=== PATIENT | female | born 1955 | race Caucasian/White ===

== ENCOUNTER → 2017-05-17 | Outpatient (RCR) | payer MEDICARE, BC, SELFPAY | LOC: PT 04-25 09:45 | PROVIDERS: PCP Emergency Medicine; Visit Provider Emergency Medicine | DX: M54.2 Cervicalgia (principal) | CPT/HCPCS: G8990; G8991; 97010; 97012; 97014; 97035; 97110; G0283 ==

== ENCOUNTER → 2017-05-23 10:27 | Outpatient (REF) | payer MEDICARE, BC, SELFPAY ==
[2017-05-23 13:57] LABS: Basophils # 0.1 K/mm3 (0-0.2); Basophils % 0.6 % (0.1-2.0); Eosinophils # 0.2 K/mm3 (0.0-0.4); Eosinophils % 2.5 % (0.1-12.0); Hematocrit 42.2 % (37.0-47.0); Hemoglobin 13.4 g/dL (12.2-16.2); Lymphocytes # 2.8 K/mm3 (0.7-4.5); Lymphocytes % 31.9 K/mm3 (10-50); Mean Corpuscular HGB Conc 31.7 g/dL (31.8-35.4); Mean Corpuscular Hemoglobin 27.7 pg (27.0-31.2); Mean Corpuscular Volume 87.4 fl (81-99); Mean Platelet Volume 8.9 fl (7.4-10.4); Monocytes # 0.5 K/mm3 (0.1-1.0); Monocytes % 5.4 % (1.7-9.3); Neutrophils # 5.1 K/mm3 (1.8-7.8); Neutrophils % 59.5 % (37.0-80.0); Platelet Count 602 K/mm3 (142-424); Red Blood Count 4.82 M/mm3 (4.20-5.40); Red Cell Distribution Width 14.9 % (11.5-17.5); White Blood Count 8.6 K/mm3 (4.8-10.8)
[2017-05-23 14:14] LABS: Cholesterol 266 mg/dL (140-200); HDL Cholesterol 53 mg/dL (29-89); LDL Cholesterol 165 mg/dL (0-130); Triglycerides 238 mg/dL (30-200); VLDL Cholesterol 48 mg/dL (0-40)
[2017-05-23 14:21] LABS: Alanine Aminotransferase 17 U/L (12-78); Albumin Level 3.9 gm/dL (3.4-5.0); Alkaline Phosphatase 171 U/L (46-116); Aspartate Amino Transferase 18 U/L (15-37); Bilirubin,Total 0.4 mg/dL (0.2-1.0); Blood Urea Nitrogen 16 mg/dL (7-18); Calcium 9.7 mg/dL (8.5-10.1); Carbon Dioxide 30 mmol/L (21.0-32.0); Chloride 97 mmol/L (98-107); Creatinine,Serum 0.95 mg/dL (0.55-1.02); Estimated Glomerular Filt Rate 59 ml/min (>60); GFR (African American) > 60 ML/MIN (>60); Globulin 3.9 gm/dl (1.3-3.2); Glucose 213 mg/dL (74-106); Sodium 136 mmol/L (136-145); T4 (Thyroxine) 6.5 ug/dl (4.7-13.3); Thyroid Stimulating Hormone 2.16 uIU/ml (0.358-3.740); Total Protein,Serum 7.8 gm/dL (6.4-8.2)
[2017-05-23 14:49] LABS: Hemoglobin A1C 11.2 % (0.0-7.0)
[2017-05-24 17:18] LABS: Vitamin B12 454 pg/mL (232-1245); Vitamin D 25 Hydroxy 27.3 ng/mL (30.0-100.0)
== END ==
LOC: LAB 10:27
PROVIDERS: Visit Provider Physician Assistant
DX: F33.1 Major depressive disorder, recurrent, moderate (principal); I10 Essential (primary) hypertension; E55.9 Vitamin D deficiency, unspecified; R53.83 Other fatigue; Z79.4 Long term (current) use of insulin; E11.65 Type 2 diabetes mellitus with hyperglycemia
CPT/HCPCS: 80053; 80061; 82607; 82652; 83036; 84436; 84443; 85025

== ENCOUNTER → 2017-07-03 14:49 | Outpatient (REF) | payer MEDICARE, BC, SELFPAY ==
[2017-07-03 18:39] LABS: Basophils # 0.1 K/mm3 (0-0.2); Basophils % 1.1 % (0.1-2.0); Eosinophils # 0.4 K/mm3 (0.0-0.4); Eosinophils % 5.3 % (0.1-12.0); Hematocrit 41.5 % (37.0-47.0); Hemoglobin 13.1 g/dL (12.2-16.2); Lymphocytes # 2.9 K/mm3 (0.7-4.5); Lymphocytes % 35.6 K/mm3 (10-50); Mean Corpuscular HGB Conc 31.6 g/dL (31.8-35.4); Mean Corpuscular Hemoglobin 27.1 pg (27.0-31.2); Mean Platelet Volume 8.2 fl (7.4-10.4); Monocytes # 0.6 K/mm3 (0.1-1.0); Neutrophils # 4.2 K/mm3 (1.8-7.8); Neutrophils % 51.1 % (37.0-80.0); Platelet Count 553 K/mm3 (142-424); Red Blood Count 4.82 M/mm3 (4.20-5.40); Red Cell Distribution Width 14.3 % (11.5-17.5); White Blood Count 8.1 K/mm3 (4.8-10.8)
[2017-07-03 18:54] LABS: Alanine Aminotransferase 23 U/L (12-78); Albumin Level 3.6 gm/dL (3.4-5.0); Albumin/Globulin Ratio 0.9 (1.1-1.8); Alkaline Phosphatase 155 U/L (46-116); Amylase 33 U/L (25-125); Anion Gap 13.4 mEq/L (5-15); Aspartate Amino Transferase 13 U/L (15-37); Bilirubin,Total 0.3 mg/dL (0.2-1.0); Blood Urea Nitrogen 21 mg/dL (7-18); Calcium 9.6 mg/dL (8.5-10.1); Carbon Dioxide 28 mmol/L (21.0-32.0); Chloride 100 mmol/L (98-107); Creatinine,Serum 0.82 mg/dL (0.55-1.02); Estimated Glomerular Filt Rate 70 ml/min (>60); GFR (African American) 85 ML/MIN (>60); Globulin 4.2 gm/dl (1.3-3.2); Glucose 233 mg/dL (74-106); Lipase 154 u/L (73-393); Potassium 4.4 mmoL/L (3.5-5.1); Sodium 137 mmol/L (136-145); Total Protein,Serum 7.8 gm/dL (6.4-8.2)
== END ==
LOC: LAB 14:49
PROVIDERS: Visit Provider Physician Assistant
DX: R10.9 Unspecified abdominal pain (principal); G62.9 Polyneuropathy, unspecified
CPT/HCPCS: 80053; 82150; 83690; 85025

== ENCOUNTER → 2017-07-04 09:49 | Outpatient (CLI) | payer MEDICARE, BC, SELFPAY ==
--- NOTE | 2017-07-04 09:52 | XR_ITS ---
XR foot RT min 3V HISTORY: ITS.REASON: pain in right foot ORDERING PHYSICIAN: Abby Mustafa DPM PATIENT AGE: 62 years COMPARISON: None FINDINGS: Weightbearing views are performed No fracture or dislocation. No lytic or blastic change. There is normal mineralization.. Minimal hypertrophic changes are present at the base and lateral aspect of the proximal phalanx of the great toe Normal alignment IMPRESSION: Minimal osteophyte formation at the base of the proximal phalanx of the great toe otherwise negative
--- NOTE | 2017-07-04 09:52 | XR_ITS ---
XR foot LT min 3V HISTORY: ITS.REASON: Pain of left foot ORDERING PHYSICIAN: Abby Mustafa DPM PATIENT AGE: 62 years COMPARISON: None FINDINGS: Weightbearing views are performed No fracture or dislocation. No lytic or blastic change. There is normal mineralization.. The joint spaces are well-preserved. No significant degenerative/arthritic changes. No erosive changes evident. Normal alignment IMPRESSION: Negative, no acute finding
== END ==
PROVIDERS: PCP Physician Assistant; Visit Provider Podiatrist
DX: M79.671 Pain in right foot (principal); M79.672 Pain in left foot
CPT/HCPCS: 73630

== ENCOUNTER → 2017-07-12 11:19 | Outpatient (POV) | payer MEDICARE, BC, SELFPAY | PROVIDERS: Visit Provider Podiatrist | DX: Z00.00 Encounter for general adult medical examination without abnormal findings (principal) ==

== ENCOUNTER 2017-07-21 12:44 | Observation (INO) | payer MEDICARE, BC, SELFPAY ==
[2017-07-21 12:54] VITALS: BP 151/83; PULSE 76; RESP 18; TEMP 36.5; O2SAT 95; BMI 41.2
--- NOTE | 2017-07-21 13:42 | HMH.EDABDPAI ---
ED Disposition Clinical Impression: Upper abdominal pain, HTN (hypertension), Diabetes Disposition: Still a Patient Condition on Discharge: Fair Instructions: DI for Acute Abdomen Referrals: Provider,Referral, MD [Primary Care Provider] - - Critical Care Critical Care Time: No Attestation: On 07/21/17, the high probability of a clinically significant, sudden or life threatening deterioration of the following system(s) required my full and direct attention, intervention and personal management. The time I documented below is in addition to time spent performing reported procedures but includes the following listed in this critical care notation. Medical Decision Making Vital Signs: 07/21/17 12:54 Temperature 97.7 F Temperature Source Oral Pulse Rate [Right Radial] 76 Respiratory Rate 18 Blood Pressure [Right Arm] 151/83 Blood Pressure Mean [Right Arm] 105 Blood Pressure Source [Right Arm] Automatic Cuff Blood Pressure Position [Right Arm] Sitting 02 Sat by Pulse Oximetry 95 Oxygen Delivery Method Room Air - Lab Data Lab Results 07/21/17 14:00: WBC 6.6, RBC 4.85, Hgb 13.2, Hct 42.2, MCV 87.0, MCH 27.1, MCHC 31.2 L, RDW 14.3, Plt Count 479 H, MPV 7.6, Neut % (Auto) 47.3, Lymph % (Auto) 41.9, [place] % (Auto) 6.1, Eos % (Auto) 3.9, Baso % (Auto) 0.9, Neut # (Auto) 3.1, Lymph # (Auto) 2.8, [place] # (Auto) 0.4, Eos # (Auto) 0.3, Baso # (Auto) 0.1 07/21/17 14:00: Sodium 135 L, Potassium 4.2, Chloride 96 L, Carbon Dioxide 28, Anion Gap 15.2 H, BUN 16, Creatinine 0.90, Estimated Creat Clear 51, Estimated GFR 63, Est GFR ( Amer) 76, Glucose 337 H, Calcium 9.3, Total Bilirubin 0.4, AST 9 L, ALT 22, Alkaline Phosphatase 151 H, Total Creatine Kinase 64, CK-MB (CK-2) 2.5, CK-MB (CK-2) Rel Index 3.9, Troponin I < 0.02, Total Protein 8.4 H, Albumin 3.6, Globulin 4.8 H, Albumin/Globulin Ratio 0.8 L, Lipase 176 Result diagrams: 07/21/17 14:00 07/21/17 14:00 Orders (Tests/Meds): ED MEDICATIONS Discontinued Medications Generic Name Dose Route Start Last Admin Trade Name Aure PRN Reason Stop Dose Admin Belladonna Alkaloids 60 ml 07/21/17 13:46 07/21/17 13:50 Gi Cocktail 60ml Udc PO 07/21/17 13:47 60 ml ONCE ONE Administration Famotidine 20 mg 07/21/17 13:46 07/21/17 13:50 Pepcid 20mg/2ml Vial IV 07/21/17 13:47 20 mg ONCE ONE Administration ORDERS Category Date Time Status Occult Blood,Stool Stat Lab 07/21/17 13:45 Ordered - ECG Data Tracing #1 Normal sinus rhythm 71/min baseline artifact no acute finding. ECG initial impression date: 07/21/17 ECG initial impression time: 14:40 - Marco A Inquiry Pt receiving controlled substance: No Marco A was queried for this patient: No Medical Decision Making Narrative: The patient felt improvement after using a GI cocktail and Pepcid I spoke with Dr. Hercules the customer sales advisor was willing to scope her in the morning. I called Dr. Villasenor to admit. Abdominal Pain HPI - General Chief Complaint: Abdominal Pain Stated Complaint: ABD Pain goes to left side Mode of Arrival: Ambulatory Limitations: No Limitations Description of Symptoms (Recalled from ER Triage Doc. by RN): EPIGASTRIC PAIN RADIATING TO LEFT SIDE WITH ASSOCIATED NAUSEA. STATES SHE HAS BEEN HAVING SYMPTOMS FOR TWO WEEKS. SEEN BY PCP A WEEK AGO AND STATES PCP TOOK BLOOD FOR PANCREATIIS AND IT WAS NEGATIVE. . I PROBABLY HAVE ANOTHER HERNIA. - History of Present Illness HPI narrative: This is 62 years old white female with history of diabetes and reflux disease. For the past 2 weeks she has been experiencing sharp stabbing pain in the epigastrium rated 8/10, it is not affected by food, not relieved by medications. She denies vomiting hematemesis coffee-ground emesis melanotic stool or bleeding per rectum. She is tired of it and she wants to be checked. Patient denies having chest pain palpitations shortness of breath. MD complaint: abdominal pa
--- NOTE | 2017-07-21 13:44 | XR_ITS ---
XR acute abdomen series HISTORY: ITS.REASON: upper abdominal pain ORDERING PHYSICIAN: Nurys Myrick MD PATIENT AGE: 62 years COMPARISON: None FINDINGS: Frontal view of the chest shows no acute finding. Upright and supine views of abdomen demonstrates nonspecific nonobstructive bowel gas pattern with mild amount retained colonic feces. No free air. No abnormal calcifications or acute bony anomalies. IMPRESSION: Constipation otherwise negative
[2017-07-21 14:17] LABS: Basophils # 0.1 K/mm3 (0-0.2); Basophils % 0.9 % (0.1-2.0); Eosinophils # 0.3 K/mm3 (0.0-0.4); Eosinophils % 3.9 % (0.1-12.0); Hematocrit 42.2 % (37.0-47.0); Hemoglobin 13.2 g/dL (12.2-16.2); Lymphocytes # 2.8 K/mm3 (0.7-4.5); Lymphocytes % 41.9 K/mm3 (10-50); Mean Corpuscular HGB Conc 31.2 g/dL (31.8-35.4); Mean Corpuscular Hemoglobin 27.1 pg (27.0-31.2); Mean Platelet Volume 7.6 fl (7.4-10.4); Monocytes # 0.4 K/mm3 (0.1-1.0); Monocytes % 6.1 % (1.7-9.3); Neutrophils # 3.1 K/mm3 (1.8-7.8); Neutrophils % 47.3 % (37.0-80.0); Platelet Count 479 K/mm3 (142-424); Red Blood Count 4.85 M/mm3 (4.20-5.40); Red Cell Distribution Width 14.3 % (11.5-17.5); White Blood Count 6.6 K/mm3 (4.8-10.8)
[2017-07-21 14:47] LABS: Alanine Aminotransferase 22 U/L (12-78); Albumin Level 3.6 gm/dL (3.4-5.0); Albumin/Globulin Ratio 0.8 (1.1-1.8); Alkaline Phosphatase 151 U/L (46-116); Anion Gap 15.2 mEq/L (5-15); Aspartate Amino Transferase 9 U/L (15-37); Bilirubin,Total 0.4 mg/dL (0.2-1.0); Blood Urea Nitrogen 16 mg/dL (7-18); CKMB Relative Index 3.9 U/L (0-4.0); Calcium 9.3 mg/dL (8.5-10.1); Carbon Dioxide 28 mmol/L (21.0-32.0); Chloride 96 mmol/L (98-107); Creatine Kinase 64 U/L (26-192); Creatine Kinase MB 2.5 mg/ml (0.0-3.6); Creatinine Clearance Estimated 51 mL/min (0-300); Estimated Glomerular Filt Rate 63 ml/min (>60); GFR (African American) 76 ML/MIN (>60); Globulin 4.8 gm/dl (1.3-3.2); Glucose 337 mg/dL (74-106); Lipase 176 u/L (73-393); Potassium 4.2 mmoL/L (3.5-5.1); Sodium 135 mmol/L (136-145); Total Protein,Serum 8.4 gm/dL (6.4-8.2); Troponin I < 0.02 ng/ml (0.00-0.06)
--- NOTE | 2017-07-21 17:01 | PC.NURSE ---
REPORT CALLED TO ALEIDA MERRITT RN
[2017-07-21 17:17] VITALS: BP 151/79; PULSE 72; RESP 20; TEMP 36.6; O2SAT 95; BMI 40.2
[2017-07-21 17:19] VITALS: BP 151/79; PULSE 72; RESP 20; TEMP 36.6; O2SAT 95
[2017-07-21 17:29] LABS: Troponin I < 0.02 ng/ml (0.00-0.06)
[2017-07-21 18:21] VITALS: PULSE 72; RESP 18; O2SAT 95
--- NOTE | 2017-07-21 19:01 | PC.NURSE ---
report to be given to Analisa Avendaño RN
[2017-07-21 19:36] VITALS: BP 170/93; PULSE 73; RESP 20; TEMP 36.6; O2SAT 93
[2017-07-21 21:30] VITALS: O2SAT 93
--- NOTE | 2017-07-21 21:30 | PC.NURSE ---
Pt does not have home medications with her, she wad informed that without her home medications she will be charged for medications taken from [facility], pt agreed she would take medications we gave her and does not mind being charged. Medications that were ordered pt home med were: buspirone 30 mg requip 2 mg
[2017-07-22] VITALS (17 sets, daily range): BP systolic 120–177; BP diastolic 56–93; PULSE 66–80; RESP 16–20; TEMP 36.1–36.9; O2SAT 90–100; BMI 40.3
[2017-07-22 01:55] LABS: POC Glucose,Bedside 324 mg/dL (70-110)
--- NOTE | 2017-07-22 05:17 | PC.NURSE ---
Pt has rested well this shift with no complaints of pain or discomfort. When palpating abdomen no tenderness noted, BS active in all 4 qauds. Wheezes noted during lung auscultation, pt states she is a long time smoker, denies SOA. A&Ox3. Abdomen is mildy distended. VSS. NO acute distress noted. Will continue to monitor.
[2017-07-22 06:40] LABS: POC Glucose,Bedside 245 mg/dL (70-110)
[2017-07-22 06:47] LABS: Basophils # 0.1 K/mm3 (0-0.2); Basophils % 0.7 % (0.1-2.0); Eosinophils # 0.4 K/mm3 (0.0-0.4); Eosinophils % 4.4 % (0.1-12.0); Hemoglobin 14.2 g/dL (12.2-16.2); Lymphocytes # 2.9 K/mm3 (0.7-4.5); Lymphocytes % 33.3 K/mm3 (10-50); Mean Corpuscular HGB Conc 30.9 g/dL (31.8-35.4); Mean Corpuscular Hemoglobin 27.3 pg (27.0-31.2); Mean Corpuscular Volume 88.3 fl (81-99); Mean Platelet Volume 7.4 fl (7.4-10.4); Monocytes # 0.4 K/mm3 (0.1-1.0); Neutrophils % 56.7 % (37.0-80.0); Platelet Count 512 K/mm3 (142-424); Red Blood Count 5.21 M/mm3 (4.20-5.40); Red Cell Distribution Width 14.3 % (11.5-17.5); White Blood Count 8.8 K/mm3 (4.8-10.8)
[2017-07-22 07:01] LABS: Alanine Aminotransferase 24 U/L (12-78); Albumin Level 3.7 gm/dL (3.4-5.0); Albumin/Globulin Ratio 0.7 (1.1-1.8); Alkaline Phosphatase 159 U/L (46-116); Anion Gap 14.9 mEq/L (5-15); Aspartate Amino Transferase 15 U/L (15-37); Bilirubin,Total 0.5 mg/dL (0.2-1.0); Blood Urea Nitrogen 14 mg/dL (7-18); Calcium 9.3 mg/dL (8.5-10.1); Carbon Dioxide 29 mmol/L (21.0-32.0); Chloride 97 mmol/L (98-107); Creatinine Clearance Estimated 99 mL/min (0-300); Creatinine,Serum 0.95 mg/dL (0.55-1.02); Estimated Glomerular Filt Rate 59 ml/min (>60); GFR (African American) 72 ML/MIN (>60); Glucose 272 mg/dL (74-106); Potassium 3.9 mmoL/L (3.5-5.1); Sodium 137 mmol/L (136-145); Total Protein,Serum 8.7 gm/dL (6.4-8.2)
--- NOTE | 2017-07-22 07:29 | PC.NURSE ---
REPORT GIVEN TO Sahara HOPPER W/C
--- NOTE | 2017-07-22 07:31 | HMH.PHAVTE ---
[facility] Pharmacy VTE Monitoring - Patient Demographics Admission date: 07/21/17 Report Date: 07/22/17 Time: 07:31 Allergies/Adverse Reactions: Patient Allergies canagliflozin [From Invokana] Allergy (Severe, Verified 07/16/17 08:14) blisters metronidazole [From Metrogel] Allergy (Verified 07/16/17 08:14) Rash nystatin Allergy (Verified 07/16/17 08:14) Dizziness rosuvastatin [From Crestor] Allergy (Verified 07/16/17 08:14) Unknown allergy reaction Height: 1.65 m Weight: 109.798 kg Patient Problems: Current Active Problems Upper abdominal pain (Acute) HTN (hypertension) (Acute) Diabetes mellitus (Chronic) - VTE Risk Labs: VTE Related Lab Results Hgb 14.2 g/dL (12.2-16.2) 07/22/17 06:30 Hct 46.0 % (37.0-47.0) 07/22/17 06:30 Plt Count 512 K/mm3 (142-424) H 07/22/17 06:30 BUN 14 mg/dL (7-18) 07/22/17 06:30 Creatinine 0.95 mg/dL (0.55-1.02) 07/22/17 06:30 Estimated Creat Clear 99 mL/min (0-300) 07/22/17 06:30 Was VTE Risk Assessment Performed: Yes VTE Score: 4 VTE Risk Level: Low Risk - Prophylaxis VTE Prophylaxis Ordered?: Yes Types of VTE Prophylaxis: TEDS Knee High Location of Applied Device: Bilateral Lower Extremeties - VTE Diagnosis Confirmed Treatment or plan recommended: Continue Current Treatment
--- NOTE | 2017-07-22 07:40 | PC.NURSE ---
report given to carol millard rn
--- NOTE | 2017-07-22 09:06 | P.PN_ITS ---
[facility] Anesthesia Checklist - Structural Data Admitted From: Home Planned Operative Procedure/s: egd Consent for Planned Operative Procedure(s) Verified: Yes - Airway Assessment C-Spine Mobility Assessed: Yes TMJ Mobility Assessed: Yes Dentition: Good Dentition - Neurological Assessment Level of Consciousness: Awake, Alert - Anesthesia Plan Anesthesia Risk discussed: Yes Anesthesia Plan: Verified ASA Class: II Anesthesia Type: MAC [facility] Anesthesia HX Medical History: Reports:: Diabetes Mellitus Type 2, Gastroesophageal Reflux Disease(GERD), Hyperlipidemia, Hypertension Denies:: Diabetes Mellitus Type 1, Internal Pacemaker Other Medical History: Reports: Arthritis. Denies: Cataracts, Glaucoma, Hypothyroidism, Thyroid Disease Other Surgeries: Yes: Cardiac Catheterization, EGD, Hysterectomy-Total. No: Pacemaker Amputation: No Fractures: No *Family Hx:: Heart Attack, Stroke, Hypertension, Asthma
--- NOTE | 2017-07-22 09:31 | P.PCN_ITS ---
[facility] Procedure Note Procedure Note:: Upper Endoscopy Procedure Report: Esophagogastroduodenoscopy with cold biopsies Endoscopost: Rangel Hercules II, MD Referring Physician: Eben Villasenor MD Date of Procedure: June 24 July 22, 2017 Equipment: Olympus GIF 180 standard upper endoscope Sedation: MAC sedation Indications: Mrs. Shin is a 62-year-old female who was admitted late yesterday for abdominal pain. She reports epigastric and left upper quadrant abdominal pain. This began a couple of weeks ago. She has had bloating, belching, nausea and early satiety. Her reflux/GERD is controlled with Dexilant daily. She reports no heartburn, hematemesis, melena, fever or weight loss. She does state that she normally has 3 bowel movements daily but yesterday had one bowel movement. She reports no significant change in bowel habits, diarrhea or constipation. She did have an upper endoscopy more than 10 years ago (Dr. Jeremi Schmid). She has not had prior cholecystectomy. Procedure: Prior to the procedure, a history and physical exam was performed, and patient' s medications and allergies were reviewed. The risks, benefits and alternatives of the sedation and procedure were discussed with the patient. All questions were answered and informed consent was obtained. The patient was brought to the procedure room. Patient identification and proposed procedure were verified by the physician and the nurse. The patient was placed in a left lateral decubitus position and the scope was passed under direct vision. Throughout the procedure, the patient's blood pressure, pulse, and oxygen saturations were monitored continuously. The upper GI endoscopy was accomplished without difficulty. The patient tolerated the procedure well. Findings: The scope was passed directly into the upper esophagus and advanced to the third portion of the duodenum. The post bulbar duodenum and duodenal bulb were normal with normal mucosa and conniventes. The scope was withdrawn through a normal duodenal bulb and pylorus into the stomach. There was some linear erythema of the antrum and body consistent with mild linear reactive gastritis. The remainder of the antrum, body and fundus of the stomach were grossly normal. Upon retroflexion there was a small 2 cm hiatal hernia. 2 biopsies were taken in the antrum and along the lesser curvature for histology to rule out gastritis and/or H pylori. The scope was then withdrawn into the esophagus. There was a serrated Z line and tertiary contractions within the esophagus consistent with mild esophageal dysmotility. There were 2 small tongues of salmon colored mucosa that were serrated that were biopsied to rule out Toney's/intestinal metaplasia. The remainder of the esophageal mucosa was normal. Impression: 1. Nonerosive GERD with mild esophageal dysmotility and small 2 cm hiatal hernia 2. Mild linear reactive gastritis Plan: I do feel that the patient has functional dyspepsia. We will discuss additional dietary measures and treatment options. The patient can begin advancing diet to soft fiber/low residue. I would like for her to have ultrasound of the gallbladder either before discharge or this week. I will have her follow-up with Maureen francis. I will follow up the biopsies.
--- NOTE | 2017-07-22 10:38 | US_ITS ---
HISTORY: Abdominal pain ITS.REASON: abd pain r/o gallbladder disease/gallstones ORDERING PHYSICIAN: Bulmaro Villasenor MD PATIENT AGE: 62 years COMPARISON: None FINDINGS: PANCREAS: Unremarkable. No obvious mass or abnormal fluid collection. No ductal dilatation LIVER: No focal liver lesions demonstrated. Homogeneous echogenicity. No intrahepatic biliary ductal dilatation evident RIGHT KIDNEY: Unremarkable. Normal size and echogenicity. No hydronephrosis GALLBLADDER: There is a 2.3 cm gallstone present. No gallbladder wall thickening or pericholecystic fluid. Common bile duct is within normal limits. There may be a small polyp along the lower aspect of the gallbladder posteriorly. IMPRESSION: Cholelithiasis. Possible small gallbladder polyp of 3 mm
[2017-07-22 11:37] LABS: POC Glucose,Bedside 228 mg/dL (70-110)
[2017-07-22 16:36] LABS: POC Glucose,Bedside 366 mg/dL (70-110)
--- NOTE | 2017-07-22 16:47 | HMH.HPDC ---
General - General Admission date: 07/21/17 Discharge date: 07/22/17 *Admission Date: 07/21/17 *Chief complaint: abd pain *History of present illness: this wf who is diabetic presented to the ed -is is 62 years old white female with history of diabetes and reflux disease. For the past 2 weeks she has been experiencing sharp stabbing pain in the epigastrium rated 8/10, it is not affected by food, not relieved by medications. She denies vomiting hematemesis coffee-ground emesis melanotic stool or bleeding per rectum. She is tired of it and she wants to be checked. [facility] History I have reviewed the patient's past medical history: Yes Medical History: Reports:: Diabetes Mellitus Type 2, Gastroesophageal Reflux Disease(GERD), Hyperlipidemia, Hypertension Denies:: Diabetes Mellitus Type 1, Internal Pacemaker Other Medical History: Reports: Arthritis. Denies: Cataracts, Glaucoma, Hypothyroidism, Thyroid Disease Other Surgeries: Yes: Cardiac Catheterization, EGD, Hysterectomy-Total. No: Pacemaker Amputation: No Fractures: No - *Social History Educational Level: Attended High School Smoking Status: Light tobacco smoker Tobacco Type: cigarettes # Packs/Day (cigarettes): 1 Alcohol Intake: never Alcohol Intake Frequency:: 0-2 drinks per day Substance Use Type: denies use Occupational Status: disabled Housing: apartment Household Members: spouse - Psychiatric History Expresses thoughts of harming self/others: None Suicide Plan Description: No Plan *Family Hx:: Heart Attack, Stroke, Hypertension, Asthma Review of Systems - Review of Systems Review of systems:: pertinent systems reviewed and negative unless documented below - Constitutional Denies fever(s) - Eyes Denies change in vision - ENT Denies neck pain - *Cardiovascular Denies chest pain with activity - *Respiratory Denies cough - *Gastrointestinal Reports abdominal pain, Reports nausea, Reports vomiting, Denies black, tarry stools - *Genitourinary Denies blood in urine - *Musculoskeletal Denies joint pain - Integumentary/Breasts Denies rash - *Neurologic Reports confusion, Reports seizure-like activity Exam Vital signs and Labs for Last 24 Hours: Temp Pulse Resp BP Pulse Ox 98.0 F 75 18 177/91 100 07/22/17 16:05 07/22/17 16:05 07/22/17 16:05 07/22/17 16:05 07/22/17 16:05 Laboratory Results - last 24 hr 07/21/17 20:14: POC Glucose 324 07/22/17 06:07: POC Glucose 245 07/22/17 06:30: WBC 8.8 D, RBC 5.21, Hgb 14.2, Hct 46.0, MCV 88.3, MCH 27.3, MCHC 30.9 L, RDW 14.3, Plt Count 512 H, MPV 7.4, Neut % (Auto) 56.7, Lymph % (Auto) 33.3, [place] % (Auto) 5.0, Eos % (Auto) 4.4, Baso % (Auto) 0.7, Neut # (Auto) 5.0, Lymph # (Auto) 2.9, [place] # (Auto) 0.4, Eos # (Auto) 0.4, Baso # (Auto) 0.1 07/22/17 06:30: Sodium 137, Potassium 3.9, Chloride 97 L, Carbon Dioxide 29, Anion Gap 14.9, BUN 14, Creatinine 0.95, Estimated Creat Clear 99, Estimated GFR 59, Est GFR ( Amer) 72, Glucose 272 H, Calcium 9.3, Total Bilirubin 0.5, AST 15 D, ALT 24, Alkaline Phosphatase 159 H, Total Protein 8.7 H, Albumin 3.7, Globulin 5.0 H, Albumin/Globulin Ratio 0.7 L 07/22/17 11:23: POC Glucose 228 07/22/17 16:26: POC Glucose 366 I & O for Last 24 hours: Intake & Output 07/20/17 07/21/17 07/22/17 07/23/17 11:59 11:59 11:59 11:59 Intake Total 655 / 655 240 / 240 Balance 655 / 655 240 / 240 Weight 242 lb 1 oz 242 lb 1.01 oz - Constitutional no acute distress, obese - *Routine HEENT Exam Head: Present: normocephalic Eye: Present: EOMI, PERRL. Absent: conjunctival icterus ENT: Present: mucous membranes dry - *Routine Neck Exam Absent: JVD - *Routine Respiratory Exam Present: CTA bilaterally. Absent: respiratory distress - *Routine Cardiovascular Exam Present: RRR, murmur, S4 - *Routine Abdominal Exam Present: tenderness. Absent: rebound Comments: tender rt upper abd with pos vogel sign - *Routine Extremities Exam Abs
== END 2017-07-22 18:19 | disposition home or self-care (01) ==
LOC: ER 16:42 → 2ND 17:24
PROVIDERS: Internal Medicine Gastroenterology; Admitting Provider Emergency Medicine; Emergency Provider Emergency Medicine; Visit Provider Family Medicine
PROC: 0DJ08ZZ Inspection of Upper Intestinal Tract, Via Natural or Artificial Opening Endoscopic (ICD-10-PCS; CPT 43235; principal; 2017-07-22 12:30)
DX: K21.9 Gastro-esophageal reflux disease without esophagitis (principal); K44.9 Diaphragmatic hernia without obstruction or gangrene; R10.13 Epigastric pain; E11.9 Type 2 diabetes mellitus without complications; I10 Essential (primary) hypertension; Z72.0 Tobacco use; K22.4 Dyskinesia of esophagus
CPT/HCPCS: 43239; 36415; 74021; 76705; 80053; 82550; 82553; 82962; 83690; 84484; 85025; 88305; 88342; 93005; 96374; 96375; 99283; G0378

== ENCOUNTER → 2017-11-21 06:10 | Outpatient (CLI) | payer MEDICARE, BC, SELFPAY ==
--- NOTE | 2017-11-21 06:13 | NM_ITS ---
History and Indications: Hypertension, diabetes, hyperlipidemia, tobacco use, family history, chest pain, shortness of breath, palpitations and fatigue Procedure: Patient received a 0.4 mg of intravenous Lexiscan, resting heart rate was 70 bpm, resting blood pressure 153/83, with Lexiscan maximum heart rate achieved was 87 bpm which is less than 85% of the maximum predicted heart rate and a blood pressure was 149/86. With Lexiscan patient complained of shortness of breath and headache. Electrocardiogram: Resting electrocardiogram showed sinus rhythm, with Lexiscan there is less than 1.[address] segment depression noted from the baseline EKG portion of the Lexiscan Myoview is nondiagnostic Cardiac stress and resting SPECT images: Cardiac stress and rest SPECT images were obtained using technetium 99 Myoview 32.0 mCi at stress and the 10.6 mCi at rest. Gated SPECT further analysis of segmental wall motion and calculation of the ejection fraction. Cardiac stress and rest images show uniform myocardial activity without any segmental perfusion abnormality, computer derived ejection fraction is over 65% with no obvious regional wall motion normal, right ventricle is normal size and contractility. Conclusion: 1. The EKG portion of the Lexiscan Myoview is nondiagnostic. 2. No obvious scintigraphic evidence of reversible ischemia seen, computer derived ejection fraction is over 65% with no obvious regional wall motion abnormality, right ventricle is normal size and contractility. 3. Normal Lexiscan Myoview study.
--- NOTE | 2017-11-21 08:49 | HMH.ITSHM ---
gabapentin metformin gemfibrozil buspirone dexilant atenolol glipizide losartan/hctz ropinirole trulance ranexa sertraline quetiapine
== END ==
PROVIDERS: PCP Physician Assistant; Visit Provider Internal Medicine
DX: R07.9 Chest pain, unspecified (principal)
CPT/HCPCS: 78452; 93017; A9502; J2785

== ENCOUNTER → 2018-01-28 09:30 | Outpatient (REF) | payer MEDICARE, BC, SELFPAY ==
[2018-01-28 14:42] LABS: Basophils # 0.1 K/mm3 (0-0.2); Basophils % 0.9 % (0.1-2.0); Eosinophils # 0.2 K/mm3 (0.0-0.4); Eosinophils % 2.4 % (0.1-12.0); Hematocrit 38.9 % (37.0-47.0); Hemoglobin 11.9 g/dL (12.2-16.2); Lymphocytes # 2.3 K/mm3 (0.7-4.5); Lymphocytes % 32.2 K/mm3 (10-50); Mean Corpuscular HGB Conc 30.6 g/dL (31.8-35.4); Mean Corpuscular Hemoglobin 25.2 pg (27.0-31.2); Mean Corpuscular Volume 82.4 fl (81-99); Mean Platelet Volume 8.1 fl (7.4-10.4); Monocytes # 0.5 K/mm3 (0.1-1.0); Monocytes % 6.4 % (1.7-9.3); Neutrophils # 4.2 K/mm3 (1.8-7.8); Platelet Count 432 K/mm3 (142-424); Red Blood Count 4.73 M/mm3 (4.20-5.40); Red Cell Distribution Width 16.3 % (11.5-17.5); White Blood Count 7.2 K/mm3 (4.8-10.8)
[2018-01-28 14:57] LABS: Hemoglobin A1C 11.6 % (0.0-7.0)
[2018-01-28 15:38] LABS: Alanine Aminotransferase 14 U/L (12-78); Albumin Level 3.3 gm/dL (3.4-5.0); Albumin/Globulin Ratio 0.8 (1.1-1.8); Alkaline Phosphatase 148 U/L (46-116); Anion Gap 14.9 mEq/L (5-15); Aspartate Amino Transferase 6 U/L (15-37); Bilirubin,Total 0.4 mg/dL (0.2-1.0); Blood Urea Nitrogen 18 mg/dL (7-18); Calcium 9.3 mg/dL (8.5-10.1); Carbon Dioxide 28 mmol/L (21.0-32.0); Chloride 102 mmol/L (98-107); Chol/HDL Ratio 4.5 (1-3.5); Cholesterol 221 mg/dL (140-200); Creatinine,Serum 0.87 mg/dL (0.55-1.02); Estimated Glomerular Filt Rate 66 ml/min (>60); GFR (African American) 79 ML/MIN (>60); Globulin 3.9 gm/dl (1.3-3.2); Glucose 333 mg/dL (74-106); HDL Cholesterol 49 mg/dL (29-89); LDL Cholesterol 103 mg/dL (0-130); Potassium 4.9 mmoL/L (3.5-5.1); Sodium 140 mmol/L (136-145); T4 (Thyroxine) 5.2 ug/dl (4.7-13.3); Thyroid Stimulating Hormone 2.71 uIU/ml (0.358-3.740); Total Protein,Serum 7.2 gm/dL (6.4-8.2); Triglycerides 343 mg/dL (30-200); VLDL Cholesterol 69 mg/dL (0-40)
[2018-01-29 12:42] LABS: Vitamin D 25 Hydroxy 24.3 ng/mL (30.0-100.0)
[2018-01-29 12:46] LABS: Microalbumin, Urine 5.3 ug/mL (Not Estab.)
== END ==
LOC: LAB 09:30
PROVIDERS: Visit Provider Physician Assistant
DX: E11.9 Type 2 diabetes mellitus without complications (principal)
CPT/HCPCS: 80053; 80061; 82043; 82652; 83036; 84436; 84443; 85025

== ENCOUNTER → 2018-02-14 09:15 | Outpatient (POV) | payer MEDICARE, BC, SELFPAY | PROVIDERS: Visit Provider Podiatrist | DX: Z00.00 Encounter for general adult medical examination without abnormal findings (principal) ==

== ENCOUNTER → 2018-03-17 13:14 | Outpatient (POV) | payer MEDICARE, BC, SELFPAY ==
[2018-03-17 17:08] LABS: Anion Gap 13.2 mEq/L (5-15); Blood Urea Nitrogen 19 mg/dL (7-18); Calcium 9.6 mg/dL (8.5-10.1); Carbon Dioxide 30 mmol/L (21.0-32.0); Chloride 101 mmol/L (98-107); Estimated Glomerular Filt Rate 72 ml/min (>60); GFR (African American) 87 ML/MIN (>60); Glucose 174 mg/dL (74-106); Potassium 4.2 mmoL/L (3.5-5.1); Sodium 140 mmol/L (136-145)
== END ==
PROVIDERS: Visit Provider Nurse Practitioner Acute Care
DX: R10.32 Left lower quadrant pain (principal)
CPT/HCPCS: 36415; 80048

== ENCOUNTER → 2018-03-21 09:30 | Outpatient (CLI) | payer MEDICARE, BC, SELFPAY ==
--- NOTE | 2018-03-21 09:34 | CT_ITS ---
CT abdomen pelvis w con CLINICAL INDICATION: Left lower quadrant pain with palpable abnormality in the left lower quadrant ITS.REASON: LLQ ABD PAIN ORDERING PHYSICIAN: Maureen Harrison PATIENT AGE: 62 years COMPARISON: 06/10/2010 TECHNIQUE: Axial images obtained with sagittal and coronal reformats. All CT scans at the facility use one or more dose reduction, viz: automated exposure control, ma/kV adjustment per patient size (including targeted exams where dose is matched to indication, i.e. head), or iterative reconstruction technique. PROCEDURE: Oral Contrast: Redicat IV Contrast: 75 mL of Isovue-370 . FINDINGS: Lower thorax: No acute finding . There is a small hiatal hernia. Mitral valve annular calcifications are present. ABDOMEN: Liver: No masses or biliary dilatation. Gallbladder: Status post cholecystectomy Pancreas: No masses or peripancreatic fluid collections. Spleen: Unremarkable. Adrenals: Unremarkable Kidneys/ureters: No masses. No renal calculi. No hydronephrosis. No perinephric fluid collections. No ureteral dilatation or obvious ureteral calculi. Stomach bowel: No obstruction or free air. There is diverticulosis of the sigmoid colon. No evidence of diverticulitis Appendix: No evidence of appendicitis. PELVIS: Reproductive: Status post hysterectomy Bladder: Nondistended. No obvious stones or masses. ABDOMEN & PELVIS: Peritoneum: No abnormal fluid collections. No obvious inflammatory changes. No free air. Lymph nodes: No enlarged lymph nodes apparent. Vasculature: No evidence of abdominal aortic aneurysm. No retroperitoneal hemorrhage evident. Bones: No acute fracture No abdominal wall hernia. A BB is placed in the left lower quadrant to raffy a palpable abnormality. No abnormalities are evident in this region. IMPRESSION: No acute abdominal or pelvic findings. No abdominal wall hernia or other significant anomalies. Small hiatal hernia. Sigmoid diverticulosis
== END ==
PROVIDERS: PCP Nurse Practitioner Acute Care; Visit Provider Nurse Practitioner Acute Care
DX: R10.32 Left lower quadrant pain (principal)
CPT/HCPCS: 74177; Q9967

== ENCOUNTER → 2018-04-07 14:39 | Outpatient (CLI) | payer MEDICARE, BC, SELFPAY ==
--- NOTE | 2018-04-07 14:40 | XR_ITS ---
XR foot LT min 3V HISTORY: ITS.REASON: Left foot pain, diabetes ORDERING PHYSICIAN: JAMES Holley PATIENT AGE: 62 years COMPARISON: None FINDINGS: No fracture or dislocation. No lytic or blastic change. There is normal mineralization.. The joint spaces are well-preserved. No erosive changes evident. No soft tissue gas. There is a small well-circumscribed calcific density along the neck of the talus on the oblique view and may be due to an old avulsion fracture with some minimal hypertrophic change at this region. Mild osteoarthritic changes are present at the ankle IMPRESSION: 1. No acute finding. 2. Mild degenerative change of the ankle and talus
== END ==
PROVIDERS: PCP Physician Assistant; Visit Provider Physician Assistant
DX: M79.672 Pain in left foot (principal)
CPT/HCPCS: 73630

== ENCOUNTER → 2018-06-02 08:32 | Outpatient (POV) | payer MEDICARE, BC, SELFPAY | PROVIDERS: Visit Provider Nurse Practitioner Acute Care | DX: Z00.00 Encounter for general adult medical examination without abnormal findings (principal) ==

== ENCOUNTER → 2018-07-24 13:22 | Outpatient (CLI) | payer MEDICARE, BC, SELFPAY ==
--- NOTE | 2018-07-24 13:30 | MM_ITS ---
MM Dig screening mamm BI w/CAD CAD Screening COMPARISON: Digital mammograms with CAD 08/24/2016 and 07/19/2015 INDICATION: There is no personal or family history of breast cancer. There is been previous biopsy left breast for benign disease. TECHNIQUE: Standard CC and MLO images were obtained. R2 CAD reviewed. FINDINGS: The breasts are composed primarily of fat with with scattered fibroglandular densities in each breast. There is mild to moderate diffuse arterial calcification in each breast. There are few additional benign-appearing microcalcifications in each breast. There are stable densities in the axillary tails of each breast likely low-lying nodes. There is no suspicious lesion and there are no suspicious microcalcifications. IMPRESSION: Fibrofatty parenchyma with no suspicious lesion seen BI-RADS Category: 2 Benign Finding(s) RECOMMENDED FOLLOW-UP: 1YR - 1 YEAR FOLLOW-UP (A letter has been sent to the patient regarding results of the study.)
--- NOTE | 2018-07-24 13:30 | US_ITS ---
US breast RT complete Ordering Physician: JAMES Holley Patient Age: 63 years: Female HISTORY: ITS.REASON: right breast pain Right breast pain laterally towards 9 o'clock position TECHNIQUE: Ultrasound entire breast including axillary survey COMPARISON :Reviewed in conjunction with screening mammogram from today 07/24/2018 FINDINGS On today's ultrasound is reviewed in conjunction with a screening mammogram. Ultrasound reveals no areas of concern. No cyst nor solid nodule. No architectural distortion. No dilated ducts. Axillary survey demonstrates and demonstrates benign-appearing vague axillary lymph nodes. One of the larger nodes 2.8 cm in length with normal fatty hilum thin cortex benign appearance. 3 other other smaller nodes observed IMPRESSION: No areas of concern, right breast . Ultrasound right breast reveals no cyst nor solid nodule Normal appearing Benign nodes towards right axilla BI-RADS Category: 1 negative RECOMMENDED FOLLOW-UP: 1YR - 1 YEAR FOLLOW-UP
== END ==
PROVIDERS: PCP Physician Assistant; Visit Provider Physician Assistant
DX: Z12.31 Encounter for screening mammogram for malignant neoplasm of breast (principal); N64.4 Mastodynia
CPT/HCPCS: 76641; 77067

== ENCOUNTER → 2018-08-25 12:04 | Outpatient (CLI) | payer MEDICARE, BC, SELFPAY ==
--- NOTE | 2018-08-25 12:15 | XR_ITS ---
XR chest 2V HISTORY: Right-sided pain, current smoker ITS.REASON: pain ORDERING PHYSICIAN: Louisa Don PATIENT AGE: 63 years COMPARISON: 01/10/2017 FINDINGS: The cardiomediastinal silhouette and pulmonary vascularity are within normal limits. There remains a parenchymal opacity in the anterior clear space inferiorly as previously described not significant change. No lobar consolidation or collapse. Calcified granuloma is present in the right lung base. No acute bony abnormalities. IMPRESSION: No change with no acute finding
[2018-08-25 12:19] LABS: Basophils % 0.6 % (0.1-2.0); Eosinophils # 0.1 K/mm3 (0.0-0.4); Eosinophils % 1.6 % (0.1-12.0); Hemoglobin 13.4 g/dL (12.2-16.2); Lymphocytes # 2.4 K/mm3 (0.7-4.5); Mean Corpuscular HGB Conc 31.9 g/dL (31.8-35.4); Mean Corpuscular Hemoglobin 24.7 pg (27.0-31.2); Mean Corpuscular Volume 77.4 fl (81-99); Mean Platelet Volume 7.8 fl (7.4-10.4); Monocytes # 0.3 K/mm3 (0.1-1.0); Monocytes % 4.6 % (1.7-9.3); Neutrophils # 4.6 K/mm3 (1.8-7.8); Neutrophils % 61.2 % (37.0-80.0); Platelet Count 494 K/mm3 (142-424); Red Blood Count 5.43 M/mm3 (4.20-5.40); Red Cell Distribution Width 14.5 % (11.5-17.5); White Blood Count 7.5 K/mm3 (4.8-10.8)
[2018-08-25 12:48] LABS: Hemoglobin A1C 10.5 % (0.0-7.0)
[2018-08-25 13:00] LABS: Alanine Aminotransferase 16 U/L (12-78); Albumin Level 3.5 gm/dL (3.4-5.0); Albumin/Globulin Ratio 0.8 (1.1-1.8); Alkaline Phosphatase 148 U/L (46-116); Anion Gap 16.2 mEq/L (5-15); Aspartate Amino Transferase 10 U/L (15-37); Bilirubin,Total 0.3 mg/dL (0.2-1.0); Blood Urea Nitrogen 16 mg/dL (7-18); Calcium 9.4 mg/dL (8.5-10.1); Carbon Dioxide 29 mmol/L (21.0-32.0); Chloride 99 mmol/L (98-107); Chol/HDL Ratio 5.3 (1-3.5); Cholesterol 254 mg/dL (140-200); Creatinine,Serum 0.98 mg/dL (0.55-1.02); Estimated Glomerular Filt Rate 57 ml/min (>60); GFR (African American) 69 ML/MIN (>60); Globulin 4.5 gm/dl (1.3-3.2); Glucose 352 mg/dL (74-106); HDL Cholesterol 48 mg/dL (29-89); LDL Cholesterol 151 mg/dL (0-130); Potassium 4.2 mmoL/L (3.5-5.1); Sodium 140 mmol/L (136-145); T4 (Thyroxine) 7.5 ug/dl (4.7-13.3); Thyroid Stimulating Hormone 2.11 uIU/ml (0.358-3.740); Triglycerides 275 mg/dL (30-200); VLDL Cholesterol 55 mg/dL (0-40)
[2018-08-27 14:26] LABS: Vitamin D 25 Hydroxy 21.5 ng/mL (30.0-100.0)
[2018-08-27 14:27] LABS: Microalbumin, Urine 5.1 ug/mL (Not Estab.)
== END ==
PROVIDERS: Visit Provider Nurse Practitioner Family
DX: I10 Essential (primary) hypertension (principal); R53.83 Other fatigue; E11.9 Type 2 diabetes mellitus without complications; N64.4 Mastodynia; Z79.84 Long term (current) use of oral hypoglycemic drugs
CPT/HCPCS: 36415; 71046; 80053; 80061; 82043; 82652; 83036; 84436; 84443; 85025

== ENCOUNTER → 2019-12-02 13:54 | Outpatient (CLI) | payer MEDICARE, BC, SELFPAY ==
[2019-12-02 14:19] LABS: Basophils # 0.1 K/mm3 (0-0.2); Basophils % 0.5 % (0.1-2.0); Eosinophils # 0.1 K/mm3 (0.0-0.4); Eosinophils % 1.3 % (0.1-12.0); Hematocrit 40.2 % (37.0-47.0); Hemoglobin 13.2 g/dL (12.2-16.2); Lymphocytes # 2.1 K/mm3 (0.7-4.5); Lymphocytes % 20.7 % (10-50); Mean Corpuscular HGB Conc 32.8 g/dL (31.8-35.4); Mean Corpuscular Hemoglobin 29.3 pg (27.0-31.2); Mean Corpuscular Volume 89.3 fl (81-99); Mean Platelet Volume 8.4 fl (7.4-10.4); Monocytes # 0.5 K/mm3 (0.1-1.0); Monocytes % 5.1 % (1.7-9.3); Neutrophils # 7.3 K/mm3 (1.8-7.8); Neutrophils % 72.5 % (37.0-80.0); Platelet Count 444 K/mm3 (142-424); Red Cell Distribution Width 13.6 % (11.5-17.5); White Blood Count 10.1 K/mm3 (4.8-10.8)
[2019-12-02 14:47] LABS: Hemoglobin A1C 7.9 % (4.0-6.0)
[2019-12-02 14:55] LABS: Chloride 101 mmol/L (98-107); Potassium 4.1 mmoL/L (3.5-5.1); Sodium 140 mmol/L (136-145)
[2019-12-02 14:58] LABS: Alanine Aminotransferase 23 U/L (12-78); Albumin Level 3.9 g/dl (3.5-5.0); Albumin/Globulin Ratio 1.3 (1.1-1.8); Alkaline Phosphatase 83 U/L (38-126); Anion Gap 14.1 mEq/L (5-15); Aspartate Amino Transferase 26 U/L (14-36); Bilirubin,Total 0.4 mg/dl (0.2-1.3); Blood Urea Nitrogen 17 mg/dl (7-17); Calcium 9.1 mg/dl (8.4-10.2); Carbon Dioxide 29 mmol/L (22.0-30.0); Chol/HDL Ratio 2.3 (1-3.5); Cholesterol 187 mg/dl (140-200); Estimated Glomerular Filt Rate 63 ml/min (>60); GFR (African American) 76 ML/MIN (>60); Glucose 142 mg/dl (74-100); HDL Cholesterol 83 mg/dl (40-60); Total Protein,Serum 6.9 g/dl (6.3-8.2); Triglycerides 112 mg/dl (30-150); VLDL Cholesterol 22 mg/dL (0-40)
[2019-12-02 15:14] LABS: T4 (Thyroxine) 9.6 ug/dl (5.53-11.0)
[2019-12-02 15:28] LABS: Thyroid Stimulating Hormone 1.42 uIU/mL (0.465-4.68)
[2019-12-02 15:30] LABS: Creatinine,Urine Random 474 mg/dL (Not Estab.); Microalbumin/Creatinine Ratio 5.1
[2019-12-08 15:18] LABS: 1,25 Dihydroxy Vitamin D 55 pg/mL (.); 1,25-Dihydroxy, Vitamin D-2 <10 pg/mL (.); 1,25-Dihydroxy, Vitamin D-3 54 pg/mL (.)
== END ==
PROVIDERS: Visit Provider Physician Assistant
DX: E11.9 Type 2 diabetes mellitus without complications (principal); E55.9 Vitamin D deficiency, unspecified; I10 Essential (primary) hypertension; J44.9 Chronic obstructive pulmonary disease, unspecified; E66.9 Obesity, unspecified; N39.0 Urinary tract infection, site not specified; Z79.4 Long term (current) use of insulin; Z79.84 Long term (current) use of oral hypoglycemic drugs
CPT/HCPCS: 80053; 80061; 82043; 82570; 82652; 83036; 84436; 84443; 85025

== ENCOUNTER → 2019-12-17 14:55 | Outpatient (CLI) | payer MEDICARE, BC, SELFPAY | PROVIDERS: PCP Physician Assistant; Visit Provider Internal Medicine Cardiovascular Disease | DX: I48.91 Unspecified atrial fibrillation (principal) | CPT/HCPCS: 93270 ==

== ENCOUNTER → 2019-12-24 10:47 | Outpatient (CLI) | payer MEDICARE, BC, SELFPAY ==
--- NOTE | 2019-12-24 10:53 | CA_ITS ---
APPROVED REPORT EXAM: Comprehensive 2D, Doppler, and color-flow Echocardiogram Client Service Professional: Alice Fiore RT(R) Ht: 5 ft 5 in Wt: 226lbs BSA: 2.08 BP: 161/64 mmHg Indications: ex smoker, HTN, DM, SOB, CAD, PAF, hx CVA, obesity, hx of YANIRA (2017). 2D Dimensions LVOT 1.68 cm (M/F) 1.5-2.5 M-Mode Dimensions RVDd 2.58 cm (0.9-2.6) LVDd 4.32 cm (3.5-5.7) LVDs 3.24 cm (3.5-5.7) IVSd 1.60 cm (0.6-1.1) PWd 1.03 cm (0.6-1.1) EF (Teich) 49.80% FS 25.00% EDV (Teich) 84.00 mL ESV (Teich) 42.20 mL LV Diastology E/A Ratio 1.19 Mitral Valve MV A Velocity 83.00 (40-130 cm/s) Left Ventricle Left atrium is mildly enlarged, left ventricle is normal size, mild concentric left ventricular hypertrophy, visually estimated ejection fraction 55% with no regional wall motion abnormality. Grade 2 diastolic dysfunction seen with tissue Doppler evidence of raise left atrial pressure. Right Ventricle Right atrium and right ventricular mildly enlarged with normal contractility. Aortic Valve Aortic valve is thickened and calcified leaflet continue to display good mobility, there is no aortic stenosis, there is trace aortic insufficiency. Mitral Valve Mitral valve has mitral annular calcification, there is no mitral stenosis, there is mild mitral regurgitation. Tricuspid Valve Tricuspid valve is grossly normal, there is mild tricuspid regurgitation, tricuspid regurgitation jet velocity is inadequate for calculation of the right ventricular systolic pressure. Pulmonic Valve Pulmonic valve is poorly visualized. Great Vessels Aortic root is normal size. Pericardium No significant pericardial effusion noted. Conclusion 1. Mildly enlarged left atrium, normal left ventricular size, mild concentric left ventricular hypertrophy, visually estimated ejection fraction 55% with no regional wall motion abnormality, grade 2 diastolic dysfunction seen with tissue Doppler evidence of raise left atrial pressure. 2. Mildly enlarged right ventricle with normal contractility. 3. Thickened and calcified aortic valve without Doppler evidence of aortic stenosis, there is trace aortic insufficiency. 4. Mild mitral and tricuspid regurgitation. 5. No significant pericardial effusion noted. Electronically signed by : Jose Roberto Copeland, 12/24/2019 16:25:12
== END ==
PROVIDERS: PCP Physician Assistant; Visit Provider Internal Medicine Cardiovascular Disease
DX: R06.00 Dyspnea, unspecified; I50.9 Heart failure, unspecified; E78.5 Hyperlipidemia, unspecified; I25.10 Atherosclerotic heart disease of native coronary artery without angina pectoris; I48.0 Paroxysmal atrial fibrillation; I63.9 Cerebral infarction, unspecified
CPT/HCPCS: 93306

== ENCOUNTER 2020-01-11 16:39 | Observation (INO) | payer MEDICARE, BC, SELFPAY ==
[2020-01-11] VITALS (7 sets, daily range): BP systolic 106–127; BP diastolic 50–72; PULSE 62–72; RESP 14–20; TEMP 36.8–36.9; O2SAT 93–95; BMI 41.5; BMI 37.8
--- NOTE | 2020-01-11 16:35 | ECG_ITS ---
APPROVED REPORT Exam: Resting ECG HR:68 bpm ECG Measurements Heart Rate 68 AXES CA 166 P 61 QRSd 84 QRS 82 QT 424 T 47 QTc 450 <Conclusion> Normal sinus rhythm Normal ECG Electronically signed by : Niraj Jasso, 01/12/2020 09:01:08
--- NOTE | 2020-01-11 17:00 | XR_ITS ---
PROCEDURE: XR CHEST PORTABLE CLINICAL HISTORY: chest pain COMPARISON: CR CXR CHEST(2 VIEWS-NOT PORTABLE) from 08/02/2016 CR CXR CHEST(2 VIEWS-NOT PORTABLE) from 01/10/2017 CR CXR2V XR chest 2V from 08/25/2018 FINDINGS: Borderline cardiomegaly without failure. The lungs are clear without infiltrates, suspicious nodules, or pleural effusions. There is a calcified granuloma in the right lobe No acute bony abnormalities. IMPRESSION: Borderline cardiomegaly otherwise negative Dictated by: Carter Souza MD 01/11/2020 18:09 Carter Souza MD in [place] 01/11/2020 18:09
[2020-01-11 17:07] LABS: Basophils # 0.1 K/mm3 (0-0.2); Basophils % 0.6 % (0.1-2.0); Eosinophils # 0.2 K/mm3 (0.0-0.4); Eosinophils % 1.7 % (0.1-12.0); Hematocrit 43.8 % (37.0-47.0); Hemoglobin 14.6 g/dL (12.2-16.2); Lymphocytes # 2.6 K/mm3 (0.7-4.5); Lymphocytes % 22.8 % (10-50); Mean Corpuscular HGB Conc 33.4 g/dL (31.8-35.4); Mean Corpuscular Hemoglobin 29.5 pg (27.0-31.2); Mean Corpuscular Volume 88.4 fl (81-99); Mean Platelet Volume 7.6 fl (7.4-10.4); Monocytes # 0.7 K/mm3 (0.1-1.0); Monocytes % 5.8 % (1.7-9.3); Neutrophils # 7.9 K/mm3 (1.8-7.8); Neutrophils % 69.2 % (37.0-80.0); Platelet Count 497 K/mm3 (142-424); Red Blood Count 4.96 M/mm3 (4.20-5.40); Red Cell Distribution Width 13.3 % (11.5-17.5); White Blood Count 11.4 K/mm3 (4.8-10.8)
[2020-01-11 17:09] LABS: Chloride 99 mmol/L (98-107)
--- NOTE | 2020-01-11 17:09 | HMH.EDGENADL ---
ED Disposition Clinical Impression: Chest pain Qualifiers: Chest pain type: other chest pain Qualified Code(s): R07.89 - Other chest pain Disposition: Admitted as Observation Condition on Discharge: Fair Time of Disposition: 19:04 - Critical Care Critical Care Time: No Attestation: On 01/11/20, the high probability of a clinically significant, sudden or life threatening deterioration of the following system(s) required my full and direct attention, intervention and personal management. The time I documented below is in addition to time spent performing reported procedures but includes the following listed in this critical care notation. Medical Decision Making - Medical Records Medical records reviewed: Yes: I reviewed the patient's medical records. - Marco A Inquiry Pt receiving controlled substance: No Vital Signs: 01/11/20 16:39 01/11/20 18:09 01/11/20 20:10 Temperature 98.2 F Temperature Source Oral Pulse Rate Pulse Rate [Right Radial] 66 67 65 Respiratory Rate 14 20 18 Blood Pressure Blood Pressure [Right Arm] 108/50 L 113/62 109/67 L Blood Pressure Mean [Right Arm] 69 79 81 Blood Pressure Source Blood Pressure Source [Right Arm] Automatic Cuff Automatic Cuff Blood Pressure Position Blood Pressure Position [Right Arm] Sitting Sitting 02 Sat by Pulse Oximetry 95 93 L 94 L Oxygen Delivery Method Room Air Room Air Room Air 01/11/20 20:20 Temperature 98.2 F Temperature Source Oral Pulse Rate 62 Pulse Rate [Right Radial] Respiratory Rate 18 Blood Pressure 106/56 L Blood Pressure [Right Arm] Blood Pressure Mean [Right Arm] Blood Pressure Source Automatic Cuff Blood Pressure Source [Right Arm] Blood Pressure Position Sitting Blood Pressure Position [Right Arm] 02 Sat by Pulse Oximetry Oxygen Delivery Method Room Air - Lab Data Lab Results 01/11/20 16:43: Sodium 141, Potassium 3.9, Chloride 99, Carbon Dioxide 32 H, Anion Gap 13.9, BUN 24 H, Creatinine 1.20 H, Estimated Creat Clear 41, Estimated GFR 45 L, Est GFR ( Amer) 54 L, Glucose 124 H, Calcium 10.0, Troponin I < 0.01 01/11/20 16:43: SARS-CoV-2 IgG Ab (Rapid) Negative, SARS-CoV-2 IgM Ab (Rapid) Negative 01/11/20 16:48: WBC 11.4 H, RBC 4.96, Hgb 14.6, Hct 43.8, MCV 88.4, MCH 29.5, MCHC 33.4, RDW 13.3, Plt Count 497 H, MPV 7.6, Neut % (Auto) 69.2, Lymph % (Auto) 22.8, [place] % (Auto) 5.8, Eos % (Auto) 1.7, Baso % (Auto) 0.6, Neut # (Auto) 7.9 H, Lymph # (Auto) 2.6, [place] # (Auto) 0.7, Eos # (Auto) 0.2, Baso # (Auto) 0.1 Result diagrams: 01/11/20 16:48 01/11/20 16:43 Orders (Tests/Meds): ED MEDICATIONS Generic Name Dose Route Start Last Admin Trade Name Freq PRN Reason Stop Dose Admin Acetaminophen 650 mg 01/11/20 20:19 Acetaminophen 325mg Tab PO 02/10/20 20:18 Q4HP PRN As Needed for Fever or Pain Ibuprofen 400 mg 01/11/20 20:19 Motrin 400mg Tablet PO 02/10/20 20:18 Q6HP PRN Mild Pain Discontinued Medications Generic Name Dose Route Start Last Admin Trade Name Freq PRN Reason Stop Dose Admin Aspirin 325 mg 01/11/20 17:00 01/11/20 17:22 Aspirin 325mg Tablet PO 01/11/20 17:01 325 mg ONCE ONE Administration ORDERS Category Date Time Status Basic Metabolic Panel AMLAB Lab 01/12/20 06:00 Ordered Complete Blood Count Auto Diff AMLAB Lab 01/12/20 06:00 Ordered Troponin I Q3H Lab 01/11/20 23:00 Ordered - ELSA Score for Non-Stemi Age of Patient: 60-69 years old Heart Rate: 50-69 bpm Systolic Blood Pressure: 120-139 mmhg Serum Creatinine: 1.20-1.59 mg/dl CHF Killip Class: I-No CHF Other Risk Factors: None Non-Stemi Risk Score: 105 Medical Decision Narrative: In summary this is a 64-year-old female presenting to the emergency department with chest pain. Patient is clinically stable on arrival. I reveiwed her chart, she established with cardiology in November. Saw BK. At that time she was taking flecainide for occasional atrial fibrillation and
[2020-01-11 17:10] LABS: Potassium 3.9 mmoL/L (3.5-5.1); Sodium 141 mmol/L (136-145)
[2020-01-11 17:13] LABS: Anion Gap 13.9 mEq/L (5-15); Blood Urea Nitrogen 24 mg/dl (7-17); Carbon Dioxide 32 mmol/L (22.0-30.0); Creatinine Clearance Estimated 41 mL/min (50-200); Estimated Glomerular Filt Rate 45 ml/min (>60); GFR (African American) 54 ML/MIN (>60); Glucose 124 mg/dl (74-100)
[2020-01-11 17:26] LABS: Troponin I < 0.01 ng/ml (0.00-0.034)
[2020-01-11 17:38] LABS: Coronavirus 19 IgG Antibody Negative (Negative); Coronavirus 19 IgM Antibody Negative (Negative)
--- NOTE | 2020-01-11 18:57 | PC.NURSE ---
DR CARPIO PAGED FOR DR REINOSO
--- NOTE | 2020-01-11 19:30 | PC.NURSE ---
recieved report from day shift nurse at 1930.
[2020-01-11 20:13] LABS: Troponin I < 0.01 ng/ml (0.00-0.034)
--- NOTE | 2020-01-11 20:43 | PC.NURSE ---
PT ARRIVED TO THE FLOOR VIA E/C FROM ED WITH STAFF AT 2041
[2020-01-11 21:13] LABS: Microscopic, Urine URINE MICROSCOPIC (MICROSCOPIC)
[2020-01-11 21:19] LABS: Bilirubin,Urine Negative (Negative); Blood, Urine Negative (Negative); Color,Urine YELLOW (Yellow); Glucose,Urine (UA) Negative (Negative); Ketones,Urine Negative (Negative); Leukocyte Esterase,Urine 2+ (Negative); Nitrate,Urine Negative (Negative); PH,Urine 5.5 (5.0-8.5); Protein,Urine Negative (Negative); Specific Gravity, Urine 1.015 (1.005-1.030); Urobilinogen,Urine 0.2 EU/dl (0.2)
[2020-01-11 21:22] LABS: Appearance,Urine Slightly Cloudy (Clear)
[2020-01-11 21:43] LABS: Bacteria,Urine 1+ /lpf; Mucus,Urine 1+ /lpf; WBC,Urine 20-50 #/hpf (0-3)
[2020-01-11 23:40] LABS: Troponin I < 0.01 ng/ml (0.00-0.034)
[2020-01-12] VITALS (10 sets, daily range): BP systolic 115–151; BP diastolic 52–96; PULSE 57–70; RESP 14–20; TEMP 36.5–37.2; O2SAT 93–100; BMI 37.8
--- NOTE | 2020-01-12 | CA_ITS ---
APPROVED REPORT Exam: Pharmacologic Technologist: Gila Ruiz, Ht: 5 ft 5 in Wt: 226 lbs BSA: 2.08 m2 HR: 60 bpm BP: 144/78 mmHg Rhythm: NSR,NORMAL Medical History Medical History: Diabetic ??? Insulin Medications: Flecainide,,,,, Metformin,,,,, Losartan,,,,, HCTZ,,,,, Buspirone,,,,, Lasix,,,,, Vit D3,,,,, FeNOfibrate,,,,, Dexilant,,,,, BuPROPION,,,,, Sertraline,,,,, AtenENOLOL,,,,, Allergies: INVOKANA LINZESS CRESTOR NYSTATIN Cardiac Risk Factors: HTN, Hyperlipidemia, Diabetes (insulin) Stress Test Details Test: LEXISCAN Reversal agent Aminophyline 100.0 mg, given intravenously for nausea. HR Resting HR: 60 bpm Max Heart Rate (APMHR): 154 bpm Max HR Achieved: 86 bpm Target HR (85% APMHR): 130 bpm % of APMHR: 55 Recovery HR: 84 bpm BP Resting BP: 144.0/78.0 mmHg Max BP: 193.0/94.0 mmHg Recovery BP: 193.0/94.0 mmHg ECG Resting ECG: NSR, NORMAL Clinical Exercise duration: 04:05 min Highest Stage Achieved: Exercise capacity: 1.0 METs Stress ECG Conclusion DURING INFUSION OF LEXISCAN PATIENT HAD MILD SOA,MALAISE,HEADACHE AND VOMITING. NO CHEST PAIN. RARE PAC. NO SIGNIFICANT ST-T CHANGES. UNREMARKABLE LEXISCAN STRESS. MYOVIEW IMAGES REPORTED SEPARATELY. Electronically signed by : Jose Roberto Copeland, 01/12/2020 19:16:36
--- NOTE | 2020-01-12 05:59 | PC.NURSE ---
New admit this shift for angina. No complaints reported to staff since arriving to floor. UA came back suspect for UTI. call center assistant paged and gave orders for one time dose of Rocephin. Pt independent ambulating to BR. ELVINR on telemetry.
--- NOTE | 2020-01-12 06:11 | PC.NURSE ---
Arvind RAMIREZ notified of consult
[2020-01-12 06:12] LABS: POC Glucose,Bedside 180 (70-110)
[2020-01-12 06:26] LABS: Basophils # 0.1 K/mm3 (0-0.2); Basophils % 0.6 % (0.1-2.0); Eosinophils # 0.2 K/mm3 (0.0-0.4); Eosinophils % 2.1 % (0.1-12.0); Hematocrit 38.7 % (37.0-47.0); Lymphocytes # 2.9 K/mm3 (0.7-4.5); Lymphocytes % 26.6 % (10-50); Mean Corpuscular HGB Conc 32.7 g/dL (31.8-35.4); Mean Corpuscular Hemoglobin 29.1 pg (27.0-31.2); Mean Corpuscular Volume 88.8 fl (81-99); Mean Platelet Volume 7.4 fl (7.4-10.4); Monocytes # 0.7 K/mm3 (0.1-1.0); Monocytes % 6.3 % (1.7-9.3); Neutrophils % 64.5 % (37.0-80.0); Platelet Count 361 K/mm3 (142-424); Red Blood Count 4.35 M/mm3 (4.20-5.40); Red Cell Distribution Width 13.3 % (11.5-17.5); White Blood Count 10.9 K/mm3 (4.8-10.8)
[2020-01-12 06:31] LABS: Chloride 98 mmol/L (98-107)
[2020-01-12 06:32] LABS: Potassium 3.6 mmoL/L (3.5-5.1); Sodium 137 mmol/L (136-145)
[2020-01-12 06:35] LABS: Anion Gap 9.6 mEq/L (5-15); Blood Urea Nitrogen 27 mg/dl (7-17); Calcium 9.1 mg/dl (8.4-10.2); Carbon Dioxide 33 mmol/L (22.0-30.0); Creatinine Clearance Estimated 90 mL/min (50-200); Estimated Glomerular Filt Rate 55 ml/min (>60); GFR (African American) 67 ML/MIN (>60); Glucose 179 mg/dl (74-100); Hemoglobin 12.6 g/dL (12.2-16.2)
--- NOTE | 2020-01-12 07:53 | HMH.PHAVTE ---
[facility] Pharmacy VTE Monitoring - Patient Demographics Admission date: 01/11/20 Report Date: 01/12/20 Time: 07:53 Allergies/Adverse Reactions: Patient Allergies canagliflozin [From Invokana] Allergy (Severe, Verified 12/24/19 12:02) blisters linaclotide [From Linzess] Allergy (Verified 12/24/19 12:02) Rash metronidazole [From Metrogel] Allergy (Verified 12/24/19 12:02) Rash nystatin Allergy (Verified 12/24/19 12:02) Dizziness rosuvastatin [From Crestor] Allergy (Verified 12/24/19 12:02) Unknown allergy reaction Height: 1.65 m Weight: 103.079 kg Patient Problems: Current Active Problems Chest pain (Acute) - VTE Risk Labs: VTE Related Lab Results Hgb 12.6 g/dL (12.2-16.2) D 01/12/20 05:55 Hct 38.7 % (37.0-47.0) 01/12/20 05:55 Plt Count 361 K/mm3 (142-424) D 01/12/20 05:55 BUN 27 mg/dl (7-17) H 01/12/20 05:55 Creatinine 1.00 mg/dl (0.52-1.04) 01/12/20 05:55 Estimated Creat Clear 90 mL/min (50-200) 01/12/20 05:55 Was VTE Risk Assessment Performed: Yes VTE Score: 3 VTE Risk Level: Low Risk Clinical Trial Participant: No - Prophylaxis VTE Prophylaxis Ordered?: Yes Types of VTE Prophylaxis: TEDS Knee High
--- NOTE | 2020-01-12 09:44 | HMH.HP ---
*Admission Date: 01/11/20 *Chief complaint: Chest pain *History of present illness: 64-year-old female patient with a past medical history of diabetes and CAD presented to the emergency department with 2 days of chest pain/pressure. She describes the pain as being sometimes sharp and sometimes dull, sometimes radiates straight through to her back sometimes it just stays midsternal in her chest. She she denies any exertional chest pain and reports this happens while she was sitting. She denies any sweating, shortness of breath, or headache during these episodes. She is established with [facility] cardiology and they have been consulted White blood cell count was 11.4, troponins negative x3, BUN 24, creatinine 1.2, GFR 45, urine resulted 1+ bacteria, 2+ leukocyte esterase, and 1+ mucus and she received IV fluids and ceftriaxone IV Chest x-ray showed borderline cardiomegaly. Cardiology has been consulted and recommends: 1. Chest pain with atypical features, normal troponins x3 and EKG with no acute ST segment changes. Patient does have known coronary disease by cardiac catheterization of 2017 but recent stress testing last year showed no evidence of ischemia. With no evidence of infarction at this time, would recommend repeating Lexiscan Myoview for further evaluation. If her Lexiscan Myoview shows no evidence of ischemia then resume home medications and patient could be discharged home for outpatient follow-up. If ischemia is seen on the stress test then would hold for cardiac catheterization tomorrow. Would hold her Xarelto today just in case she needs a cardiac catheterization tomorrow. 2. History of paroxysmal atrial fibrillation, currently sinus rhythm on flecainide therapy. 3. History of CVA, on Xarelto therapy 4. Obesity 5. Diabetes mellitus, per PCP 6. UTI, on antibiotic ceftriaxone. Awaiting stress test results Awaiting urine culture [facility] History Medical History: Reports:: Anxiety, Atrial Fibrillation, Congestive Heart Failure, Chronic Obstructive Pulmonary Disease (COPD), Coronary Artery Disease, Depression, Diabetes Mellitus Type 2, Gastroesophageal Reflux Disease(GERD), Hyperlipidemia, Hypertension, Lung Disease, Transient Ischemic Attacks (TIA) Denies:: Cancer, Diabetes Mellitus Type 1, Internal Pacemaker, MRSA, Seizures *Have you ever received a pneumonia vaccine?: Yes *Have you received a flu vaccine this season?: Yes Other Medical History: Reports: Arthritis. Denies: Blood Transfusion Reaction, Cataracts, Glaucoma, Hypothyroidism, Thyroid Disease Laterality Cases: Left: Other Other Surgeries: Yes: Cardiac Catheterization, Cholecystectomy, Colonoscopy, EGD, Hysterectomy-Total, Other. No: Pacemaker Amputation: No Fractures: No - *Social History Smoking Status: Former smoker Tobacco Type: cigarettes # Packs/Day (cigarettes): 1 #Yrs smoked (if former smoker): 5 Alcohol Intake: never Alcohol Intake Frequency:: other Substance Use Type: denies use *Occupational Status:: retired Housing: house Household Members: children *Travel in the last 8 weeks: None - Psychiatric History Pschychiatric History:: Reports:: Anxiety, Depression Family Hx:: No significant family history Review of Systems - Review of Systems Review of systems:: pertinent systems reviewed and negative unless documented below - Constitutional Denies body ache(s) - Eyes Denies blind spots, Denies blurry vision - ENT Denies dizziness, Denies difficulty swallowing - *Cardiovascular Reports chest pain, Reports chest pain at rest, Reports shortness of breath, Denies excessive sweating - *Respiratory Reports shortness of breath, Denies chest congestion - *Gastrointestinal Denies abdominal pain, Denies bloating - *Musculoskeletal Denies joint pain - Integumentary/Breasts Denies change in skin color, Denies lesions - *Neurologic Denies dizziness, Denies headache(s) (Plegia), Denies dizziness - Psychiatric Denies lack
--- NOTE | 2020-01-12 10:23 | HMH.CNCARD ---
History of Present Illness Consult date: 01/12/20 Requesting physician: Roddy iKtchen Consult reason: chest pain Chief complaint: chest pain Additional Medical History:: 1. Diabetes mellitus, insulin requiring. Treated for 5 yrs 2. Mitral regurgitation, moderate A. YANIRA, 02/2017, 1. Mildly enlarged left atrium, normal left ventricular size, mild concentric left ventricular hypertrophy, visually estimated ejection fraction 65% with no obvious regional wall motion abnormality, Doppler evidence of impaired LV relaxation seen. 2. Mitral annular calcification present at mitral valve, there is no mitral stenosis, there is mild to moderate mitral regurgitation. 3. Agitated saline contrast study fails to identify intracardiac shunt. 4. Mild tricuspid regurgitation. 5. No significant pericardial effusion noted. 3. Morbid obesity 4. Obstructive sleep apnea for which she no longer uses CPAP 5. Hypertension A. Echo, 12/2019, 1. Mildly enlarged left atrium, normal left ventricular size, mild concentric left ventricular hypertrophy, visually estimated ejection fraction 55% with no regional wall motion abnormality, grade 2 diastolic dysfunction seen with tissue Doppler evidence of raise left atrial pressure. 2. Mildly enlarged right ventricle with normal contractility. 3. Thickened and calcified aortic valve without Doppler evidence of aortic stenosis, there is trace aortic insufficiency. 4. Mild mitral and tricuspid regurgitation. 5. No significant pericardial effusion noted. 6. Hyperlipidemia 7. Remote tobacco use discontinued about 10 years ago 8. History of anxiety/PTSD/panic attacks/personality disorder 9. CAD A. Right and left heart cath, 02/2017, ANGIOGRAPHIC RESULTS: 1. The left main artery normal 2. The left anterior descending artery has proximal 20% stenoses and mid vessel 30% stenoses. 3. The circumflex artery is non dominant and has mid vessel 30% stenoses supplying a large first obtuse marginal artery 4. The right coronary artery is dominant and has proximal 20% stenosis and mid vessel mostly eccentric 60% stenosis 5. The LEONG ventriculogram reveals hyperdynamic ventricle 70% The left ventricular end-diastolic pressure 25 mmHg HEMODYNAMICS: Right atrial pressure is 6 mm Hg. Pulmonary arterial pressure is 30/17 mm Hg. Pulmonary artery occlusion pressure is 15 mm Hg. SATURATIONS: RA is 66 %. PA is 65 %. IMPRESSION: 1. Moderate coronary artery disease in the mid dominant right coronary artery as described above 2. Hyperdynamic ventricle consistent with diastolic dysfunction and hypertensive heart disease 3. Mild pulmonary hypertension 4. No evidence of cardiopulmonary shunt PLAN: 1. I'm going to recommend a transesophageal echocardiogram to better look at the mitral valve morphology. 2. At this point I don't believe mitral valve repair is indicated given the mild pulmonary hypertension and less YANIRA demonstrates more severe mitral regurgitation 3. Risk factor modification within LDL less than 55 4. Lexiscan Myoview to determine if the right coronary artery lesion has hemodynamic significance 5. Avoidance of tobacco products 6. Patient would probably benefit from a higher doses of diuretics in order to decrease left-sided filling pressures 10. History of CVA 2019 A. Vanleer related to paroxysmal atrial fibrillation 11. Paroxysmal atrial fibrillation, now in sinus rhythm on flecainide therapy History of present illness: 64-year-old white female with history of diabetes and coronary artery disease by cardiac catheterization in 2017 with recommendation for medical therapy presented to the emergency department for 2-day history of chest pain. She describes it as a sharp sensation without radiation but it is associated with nausea and weakness. She denies any exertional component or association with eating or drinking. The symptoms have awakened her from sleep and seem to o
--- NOTE | 2020-01-12 10:45 | NM_ITS ---
APPROVED REPORT Exam: Nuclear Stress Test Indication: CHF, HTN, D.M., HYPERLIPIDEMIA, FM HX, C.P., FATIGUE Patient Location: Inpatient Stress Tech: Ofelia Johnson PA Tech:Екатерина Anthony, ARRT, RT (R)(N) Ht: 5 ft 5 in Wt: 226 lbs Bra Size: 44C HR: 60 bpm BP: 144/78 mmHg BSA: 2.08 m2 BMI: 37.6 History: CHF, HTN, D.M., HYPERLIPIDEMIA, FM HX, C.P., FATIGUE Procedure: Patient received a 0.4 mg of intravenous Lexiscan, resting heart rate 60 bpm, resting blood pressure 144/78 mmHg, with Lexiscan maximum heart rate achived was 73 bpm which is % of the maximum predicted heart rate and blood pressure was 157/77 mmHg. Cardiac Stress and Resting SPECT Images: Cardiac Stress and Resting SPECT images were obtained using technetium 99m Myoview 32.9 mCi stress and 10.92 mCi at rest. EF 65% normal There is a defect in the apex laterally which fills in on the rest images consistent with an area of ischemia. A prominent defect noted on the stress images in the anteroseptal region mostly fills in on the delayed images consistent with ischemic change Conclusion: Abnormal, reversible defects as described above consistent with ischemic changes Normal EF 65% Electronically signed by : Carter Souza MD 01/12/2020 16:31:16
--- NOTE | 2020-01-12 13:18 | PC.NURSE ---
Pt down for stress test at 1233
[2020-01-12 20:00] LABS: POC Glucose,Bedside 171 (70-110)
--- NOTE | 2020-01-12 20:24 | PC.NURSE ---
Pt is alert and oriented and able to make need known. RR even and unlabored. Has had no complaints this shift. Continues on tele. Plans for heart cath in am. Have made pt aware of need to be NPO at midnight. CB in reach. VSS.
[2020-01-12 21:01] LABS: POC Glucose,Bedside 237 (70-110)
[2020-01-13] VITALS (20 sets, daily range): BP systolic 105–146; BP diastolic 53–85; PULSE 56–71; RESP 14–18; TEMP 36.4–36.9; O2SAT 93–96; BMI 38.0; BMI 38.2
--- NOTE | 2020-01-13 | IR_ITS ---
APPROVED REPORT Patient Location: Inpatient PROCEDURES Left heart catheterization Left ventriculogram Selective coronary angiogram Drug-eluting stent deployment to the large first diagonal artery INDICATION Acute coronary syndrome, Coronary artery disease Informed consent was obtained prior to the procedure. COMPLICATIONS NONE Estimated Blood Loss: LESS THAN 10 ML TECHNIQUE One percent lidocaine used to anesthetize the right anterior aspect of the wrist. The right radial artery was accessed via the Seldinger technique. A 6 Mosotho sheath was placed in the right radial artery. 2.5 mg of verapamil, 800 mcg of nitroglycerin, 1mg Lidocaine and 5000 U Heparin were given through the arterial sheath. The trap catheter was also used to perform left heart catheterization, left ventriculogram and selective coronary angiogram. At the end of the procedure and I More left guide catheter was used to intubate the left main artery and therapeutic heparin had already been administered giving a therapeutic ACT. A Choice PT extra-support wire was placed into the first diagonal artery and a 2 mm x 12 mm balloon was deployed at 14 aleksandra reducing the stenosis. Dissection was identified therefore 2 mm x 15 mm resolute tejal stent was deployed at 16 aleksandra reducing the critical stenosis to 0%. BRYN-3 flow was present before and after the procedure. At the end of procedure the apparatus was removed the sheath was removed good hemostasis was achieved using TR banding patient was transferred to the postop holding her stable condition ANGIOGRAPHIC RESULTS The left main artery Normal The left anterior descending artery Has proximal mid vessel and distal diffuse 20 to 30% stenoses. Large first diagonal artery has a greater than 90% concentric proximal stenosis The circumflex artery Is nondominant yet still large vessel with mid vessel 10 to 20% stenoses. Distally the vessel was tortuous The right coronary artery Is a dominant vessel and has proximal 20% stenosis with a mid vessel eccentric 40 to 50% stenosis. Distally there is mild vascular ectasia The LEONG ventriculogram reveals Normal 65% The left ventricular end-diastolic pressure 30 mmHg IMPRESSION Severe coronary disease and a large first diagonal artery Successful stenting of a severe to critically stenosed large first diagonal artery reducing the stenosis to 0% Normal ejection fraction Moderate to severely elevated LVEDP consistent with diastolic dysfunction Persistent moderate stenosis in a mid dominant right coronary PLAN 1. Dual antiplatelet therapy 2. LDL less than 55 3. Risk factor modification 4. Cardiac rehabilitation 5. Avoidance of tobacco products Electronically signed by : Juan Albright, 01/13/2020 14:34:42
[2020-01-13 05:42] LABS: POC Glucose,Bedside 229 (70-110)
--- NOTE | 2020-01-13 05:52 | PC.NURSE ---
Pt was restless during the night. Pt states she is nervous about heart cath. procedure explained to pt and consent signed and placed on chart. Pt has had no complaints reported to staff. Voiding independently w/o issues. NSR on telemetry.
[2020-01-13 06:41] LABS: Basophils # 0.1 K/mm3 (0-0.2); Basophils % 0.7 % (0.1-2.0); Eosinophils # 0.2 K/mm3 (0.0-0.4); Eosinophils % 2.7 % (0.1-12.0); Hematocrit 38.8 % (37.0-47.0); Hemoglobin 12.5 g/dL (12.2-16.2); Lymphocytes # 2.1 K/mm3 (0.7-4.5); Mean Corpuscular HGB Conc 32.3 g/dL (31.8-35.4); Mean Corpuscular Hemoglobin 28.7 pg (27.0-31.2); Mean Corpuscular Volume 88.9 fl (81-99); Mean Platelet Volume 6.8 fl (7.4-10.4); Monocytes # 0.5 K/mm3 (0.1-1.0); Monocytes % 6.5 % (1.7-9.3); Neutrophils # 4.7 K/mm3 (1.8-7.8); Platelet Count 326 K/mm3 (142-424); Red Blood Count 4.36 M/mm3 (4.20-5.40); Red Cell Distribution Width 13.2 % (11.5-17.5); White Blood Count 7.6 K/mm3 (4.8-10.8)
[2020-01-13 06:52] LABS: Chloride 101 mmol/L (98-107); Potassium 3.9 mmoL/L (3.5-5.1); Sodium 139 mmol/L (136-145)
[2020-01-13 06:55] LABS: Anion Gap 11.9 mEq/L (5-15); Blood Urea Nitrogen 25 mg/dl (7-17); Carbon Dioxide 30 mmol/L (22.0-30.0); Creatinine Clearance Estimated 90 mL/min (50-200); Estimated Glomerular Filt Rate 55 ml/min (>60); GFR (African American) 67 ML/MIN (>60)
[2020-01-13 06:56] LABS: Calcium 8.8 mg/dl (8.4-10.2); Glucose 219 mg/dl (74-100)
--- NOTE | 2020-01-13 09:44 | HMH.ACPN2 ---
Internal Medicine - PN: Subj *Date: 01/13/20 *Time: 09:44 Interval history: 4-year-old female patient resting in bed quietly she reports she had a very restful night. She denies any chest pain or shortness of breath. She did have an abnormal Prasanna myoview abnormal with 2 areas of ischemia noted and will have a left heart cath today. She said she understands the procedure and denies any questions at the moment Exam Vital signs and Labs for Last 24 Hours: Temp Pulse Resp BP Pulse Ox 98.4 F 57 L 18 146/69 H 94 L 01/13/20 11:58 01/13/20 11:58 01/13/20 11:58 01/13/20 11:58 01/13/20 11:58 Laboratory Results - last 24 hr 01/12/20 12:22: POC Glucose 171 H 01/12/20 20:54: POC Glucose 237 H 01/13/20 05:31: POC Glucose 229 H 01/13/20 06:18: WBC 7.6 D, RBC 4.36, Hgb 12.5, Hct 38.8, MCV 88.9, MCH 28.7, MCHC 32.3, RDW 13.2, Plt Count 326, MPV 6.8 L, Neut % (Auto) 62.0, Lymph % (Auto) 28.0, [place] % (Auto) 6.5, Eos % (Auto) 2.7, Baso % (Auto) 0.7, Neut # (Auto) 4.7, Lymph # (Auto) 2.1, [place] # (Auto) 0.5, Eos # (Auto) 0.2, Baso # (Auto) 0.1 01/13/20 06:18: Sodium 139, Potassium 3.9, Chloride 101, Carbon Dioxide 30, Anion Gap 11.9, BUN 25 H, Creatinine 1.00, Estimated Creat Clear 90, Estimated GFR 55 L, Est GFR ( Amer) 67, Glucose 219 H, Calcium 8.8 I & O for Last 24 hours: Intake & Output 01/10/20 01/11/20 01/12/20 01/13/20 23:59 23:59 23:59 23:59 Intake Total 530 / 530 0 / 0 Output Total 1175 / 1175 Balance -645 / -645 0 / 0 Weight 227 lb 227 lb 4 oz 228 lb 4 oz Microbiology Reports for the Last 24 Hours: Microbiology 01/11/20 20:13 Urine,Clean Catch Urine Culture - Final Multiple organisms, suggests contamination. - Constitutional no acute distress - *Routine HEENT Exam Head: Present: normocephalic. Absent: tenderness of temporal artery ENT: Present: mucous membranes moist. Absent: sinus tenderness - *Routine Neck Exam Present: full ROM, trachea midline. Absent: JVD, tracheal deviation - *Routine Respiratory Exam Present: CTA bilaterally - *Routine Cardiovascular Exam Present: RRR - *Routine Abdominal Exam Present: soft, normoactive bowel sounds. Absent: tenderness, firm - *Routine Extremities Exam Present: full ROM, pulses intact. Absent: calf tenderness - *Routine Skin Exam Present: intact, dry, warm. Absent: cyanosis - *Routine Neurological Exam Present: alert, oriented X3, CN II-XII intact. Absent: altered mental status - Routine Psychiatric Exam Present: normal affect, normal thought process Assessment and Plan (1) Atypical angina Current visit: Yes Status: Acute Category: Medical Code(s): I20.8 - Other forms of angina pectoris (2) Abnormal cardiovascular stress test Current visit: Yes Status: Acute Category: Medical Code(s): R94.39 - Abnormal result of other cardiovascular function study (3) CAD (coronary artery disease) Current visit: No Status: Chronic Qualifiers: Coronary Disease-Associated Artery/Lesion type: [place] artery [place] vs. transplanted heart: [place] heart Associated angina: without angina Qualified Code(s): I25.10 - Atherosclerotic heart disease of [place] coronary artery without angina pectoris Category: Medical Code(s): I25.10 - Atherosclerotic heart disease of [place] coronary artery without angina pectoris (4) Diabetes mellitus Current visit: No Status: Chronic Category: Medical Code(s): E11.9 - Type 2 diabetes mellitus without complications (5) Obesity (BMI 30-39.9) Current visit: No Status: Acute Category: Medical Code(s): E66.9 - Obesity, unspecified (6) PAF (paroxysmal atrial fibrillation) Current visit: No Status: Chronic Category: Medical Code(s): I48.0 - Paroxysmal atrial fibrillation (7) Anxiety Current visit: No Status: Chronic Category: Medical Code(s): F41.9 - Anxiety disorder, unspecified (8) HTN (hypertension) Curr
--- NOTE | 2020-01-13 10:49 | HMH.PNCARD ---
Subjective Date: 01/13/20 Time: 10:45 Principal diagnosis: angina, CAD Interval history: This 64-year-old white female who presented to the emergency department with complaints of chest pain. She states that this is a sharp sensation without radiation in the center of her chest. It is associated with nausea and weakness. The patient states that the symptoms have awakened her from her sleep and occur more when she is resting. She really does not have any additional symptoms. She does report having chest pain this morning. She states that it is just as severe as it has been but did not last as long as it usually does. She does have an abnormal Myoview stress test and is scheduled to undergo left cardiac catheterization today as she does have an abnormal stress test with a history of coronary artery disease. He denies any fever, chills, vomiting, diarrhea, PND or orthopnea. Exam Vital signs and Labs for Last 24 Hours: Temp Pulse Resp BP Pulse Ox 97.8 F 59 L 18 144/71 H 96 01/13/20 08:00 01/13/20 08:00 01/13/20 08:00 01/13/20 08:00 01/13/20 08:00 Laboratory Results - last 24 hr 01/12/20 12:22: POC Glucose 171 H 01/12/20 20:54: POC Glucose 237 H 01/13/20 05:31: POC Glucose 229 H 01/13/20 06:18: WBC 7.6 D, RBC 4.36, Hgb 12.5, Hct 38.8, MCV 88.9, MCH 28.7, MCHC 32.3, RDW 13.2, Plt Count 326, MPV 6.8 L, Neut % (Auto) 62.0, Lymph % (Auto) 28.0, [place] % (Auto) 6.5, Eos % (Auto) 2.7, Baso % (Auto) 0.7, Neut # (Auto) 4.7, Lymph # (Auto) 2.1, [place] # (Auto) 0.5, Eos # (Auto) 0.2, Baso # (Auto) 0.1 01/13/20 06:18: Sodium 139, Potassium 3.9, Chloride 101, Carbon Dioxide 30, Anion Gap 11.9, BUN 25 H, Creatinine 1.00, Estimated Creat Clear 90, Estimated GFR 55 L, Est GFR ( Amer) 67, Glucose 219 H, Calcium 8.8 I & O for Last 24 hours: Intake & Output 01/10/20 01/11/20 01/12/20 01/13/20 23:59 23:59 23:59 23:59 Intake Total 530 / 530 0 / 0 Output Total 1175 / 1175 Balance -645 / -645 0 / 0 Weight 227 lb 227 lb 4 oz 228 lb 4 oz Microbiology Reports for the Last 24 Hours: Microbiology 01/11/20 20:13 Urine,Clean Catch Urine Culture - Final Multiple organisms, suggests contamination. Narrative: Myoview shows: There is a defect in the apex laterally which fills in on the rest images consistent with an area of ischemia. A prominent defect noted on the stress images in the anteroseptal region mostly fills in on the delayed images consistent with ischemic change Conclusion: Abnormal, reversible defects as described above consistent with ischemic changes Normal EF 65% - Constitutional no acute distress, obese - *Routine HEENT Exam Head: Present: normocephalic, atraumatic Eye: Present: EOMI, PERRL ENT: Present: mucous membranes moist - *Routine Neck Exam Present: supple, full ROM, normal carotid upstroke. Absent: JVD, carotid bruit, lymphadenopathy - *Routine Respiratory Exam Present: CTA bilaterally - *Routine Cardiovascular Exam Present: RRR, Normal S1, Normal S2. Absent: murmur - *Routine Abdominal Exam Present: soft, normoactive bowel sounds. Absent: tenderness, distended - *Routine Extremities Exam Present: full ROM, pulses intact, normal capillary refill. Absent: cyanosis, clubbing, edema - *Routine Skin Exam Present: intact, warm. Absent: erythema, rash - *Routine Neurological Exam Present: alert, oriented X3, CN II-XII intact. Absent: sensory deficit, motor deficit Progress Note: A&P (1) Atypical angina Status: Acute Current Visit: Yes (2) Abnormal cardiovascular stress test Status: Acute Current Visit: Yes (3) CAD (coronary artery disease) Status: Chronic Current Visit: No (4) Diabetes mellitus Status: Chronic Current Visit: No (5) Obesity (BMI 30-39.9) Status: Acute Current Visit: No (6) PAF (paroxysmal atrial fibrillation) Status: Chronic Current Visit: No (7) Anxiety Status: Chronic
--- NOTE | 2020-01-13 12:38 | PC.NURSE ---
patient left for cath labe
[2020-01-13 15:50] LABS: CATHL Activated Clotting Time > 400 SEC (74-125)
[2020-01-13 16:46] LABS: POC Glucose,Bedside 355 (70-110)
--- NOTE | 2020-01-13 17:21 | PC.NURSE ---
Pt is pleasant and cooperative, s/p cardiac cath with coronary stenting, radial band in place, no bleeding or hematoma noted, vss, will continue to monitor.
[2020-01-13 19:30] LABS: POC Glucose,Bedside 200 (70-110)
[2020-01-13 20:21] LABS: POC Glucose,Bedside 193 (70-110)
--- NOTE | 2020-01-13 21:42 | PC.NURSE ---
late entry. pt refused AM gabapentin stating that she takes at night instead of in the AM while at home. gabapentin was discarded due to pt request. Medication had already been scanned and this nurse did not change mar to reflect this until this time.
[2020-01-14] VITALS (8 sets, daily range): BP systolic 109–153; BP diastolic 55–76; PULSE 60–70; RESP 16–18; TEMP 36.8–37; O2SAT 91–96; BMI 38.0
--- NOTE | 2020-01-14 05:32 | PC.NURSE ---
shift summary, pt has rested well t/o shift, right radial cath site soft to palpation, no hematoma present, dressing with shadowing present at the beginning of shift, no changes this shift, pt has denied chest pain, n/v, SOA
[2020-01-14 05:50] LABS: POC Glucose,Bedside 221 (70-110)
[2020-01-14 06:22] LABS: Basophils # 0.1 K/mm3 (0-0.2); Basophils % 0.9 % (0.1-2.0); Eosinophils # 0.2 K/mm3 (0.0-0.4); Eosinophils % 2.5 % (0.1-12.0); Lymphocytes # 2.1 K/mm3 (0.7-4.5); Lymphocytes % 25.1 % (10-50); Mean Corpuscular HGB Conc 32.4 g/dL (31.8-35.4); Mean Corpuscular Hemoglobin 28.5 pg (27.0-31.2); Mean Corpuscular Volume 87.9 fl (81-99); Mean Platelet Volume 7.4 fl (7.4-10.4); Monocytes # 0.5 K/mm3 (0.1-1.0); Monocytes % 6.3 % (1.7-9.3); Neutrophils # 5.4 K/mm3 (1.8-7.8); Neutrophils % 65.3 % (37.0-80.0); Platelet Count 346 K/mm3 (142-424); Red Blood Count 4.55 M/mm3 (4.20-5.40); Red Cell Distribution Width 13.1 % (11.5-17.5); White Blood Count 8.2 K/mm3 (4.8-10.8)
[2020-01-14 06:33] LABS: Blood Urea Nitrogen 23 mg/dl (7-17); Calcium 8.9 mg/dl (8.4-10.2); Carbon Dioxide 32 mmol/L (22.0-30.0); Chloride 97 mmol/L (98-107); Creatinine Clearance Estimated 91 mL/min (50-200); Estimated Glomerular Filt Rate 55 ml/min (>60); GFR (African American) 67 ML/MIN (>60); Glucose 235 mg/dl (74-100); Sodium 137 mmol/L (136-145)
--- NOTE | 2020-01-14 09:04 | HMH.PNCARD ---
Subjective Date: 01/14/20 Time: 09:04 Principal diagnosis: angina, CAD Interval history: 64-year-old white female in bed in no acute distress. States she feels much better today. She did receive coronary stenting to circumflex artery yesterday. Right wrist insertion site looks good. Exam Vital signs and Labs for Last 24 Hours: Temp Pulse Resp BP Pulse Ox 98.6 F 64 16 124/65 95 01/14/20 04:00 01/14/20 06:00 01/14/20 06:00 01/14/20 06:00 01/14/20 06:00 Laboratory Results - last 24 hr 01/13/20 11:14: POC Glucose 200 H 01/13/20 13:32: Activated Clotting Time > 400 H* 01/13/20 16:34: POC Glucose 355 H* 01/13/20 20:12: POC Glucose 193 H 01/14/20 05:40: WBC 8.2, RBC 4.55, Hgb 13.0, Hct 40.0, MCV 87.9, MCH 28.5, MCHC 32.4, RDW 13.1, Plt Count 346, MPV 7.4, Neut % (Auto) 65.3, Lymph % (Auto) 25.1, [place] % (Auto) 6.3, Eos % (Auto) 2.5, Baso % (Auto) 0.9, Neut # (Auto) 5.4, Lymph # (Auto) 2.1, [place] # (Auto) 0.5, Eos # (Auto) 0.2, Baso # (Auto) 0.1 01/14/20 05:40: Sodium 137, Potassium 4.0, Chloride 97 L, Carbon Dioxide 32 H, Anion Gap 12.0, BUN 23 H, Creatinine 1.00, Estimated Creat Clear 91, Estimated GFR 55 L, Est GFR ( Amer) 67, Glucose 235 H, Calcium 8.9 01/14/20 05:44: POC Glucose 221 H I & O for Last 24 hours: Intake & Output 01/11/20 01/12/20 01/13/20 01/14/20 11:59 11:59 11:59 11:59 Intake Total 290 / 290 240 / 240 290 / 290 Output Total 500 / 500 675 / 675 300 / 300 Balance -210 / -210 -435 / -435 -10 / -10 Weight 227 lb 4 oz 228 lb 4 oz 228 lb 4 oz Microbiology Reports for the Last 24 Hours: Microbiology 01/11/20 20:13 Urine,Clean Catch Urine Culture - Final Multiple organisms, suggests contamination. - *Routine HEENT Exam Head: Present: normocephalic Eye: Present: EOMI, PERRL ENT: Present: mucous membranes moist - *Routine Respiratory Exam Present: CTA bilaterally - *Routine Cardiovascular Exam Present: RRR - *Routine Extremities Exam Absent: cyanosis, clubbing, edema - *Routine Neurological Exam Present: alert, oriented X3 Progress Note: A&P (1) Atypical angina Status: Acute Current Visit: Yes (2) Abnormal cardiovascular stress test Status: Acute Current Visit: Yes (3) CAD (coronary artery disease) Status: Chronic Current Visit: No (4) Diabetes mellitus Status: Chronic Current Visit: No (5) Obesity (BMI 30-39.9) Status: Acute Current Visit: No (6) PAF (paroxysmal atrial fibrillation) Status: Chronic Current Visit: No (7) Anxiety Status: Chronic Current Visit: No (8) HTN (hypertension) Status: Chronic Current Visit: No (9) Hyperlipidemia Status: Chronic Current Visit: No (10) UTI (urinary tract infection) Status: Acute Current Visit: Yes (11) S/P coronary artery stent placement Status: Acute Current Visit: Yes Assessment and Plan for All Diagnoses:: 1. Status post coronary artery stenting, continue dual antiplatelet therapy with aspirin 81 mg daily and Plavix 75 mg daily. After 1 month of triple anticoagulation therapy, we will discontinue aspirin 81 mg daily and continue Plavix 75 mg daily in conjunction with Xarelto therapy. 2. Paroxysmal atrial fibrillation, on flecainide 100 mg twice daily and Xarelto 20 mg daily. 3. Hypertension, on losartan 100 mg daily, atenolol 50 mg daily and amlodipine 5 mg daily 4. Hyperlipidemia, on atorvastatin 40 mg daily, Zetia 10 mg daily and fenofibrate 160 mg twice daily. Will check lipid profile today prior to discharge. 5. Diastolic dysfunction with elevated left ventricular end-diastolic pressure 30 mmHg at time of cath. On Lasix 40 mg daily and hydrochlorothiazide 25 mg daily 6. UTI, on antibiotic therapy per PCP Patient can be discharged home from cardiology standpoint with follow-up in 1 week. With medication recommendations noted below Aspirin 81 mg daily for 1 month then discontinue Plavix 75 mg daily Susurelto
[2020-01-14 09:45] LABS: Chol/HDL Ratio 3.4 (1-3.5); Cholesterol 181 mg/dl (140-200); HDL Cholesterol 53 mg/dl (40-60); Triglycerides 119 mg/dl (30-150); VLDL Cholesterol 24 mg/dL (0-40)
[2020-01-14 09:56] LABS: Direct LDL Cholesterol 96.93 mg/dL (100-129)
--- NOTE | 2020-01-14 10:12 | HMH.DCSUM ---
General - General Admission date:: 01/11/20 Discharge date: 01/14/20 HPI HPI: 64-year-old female patient with a past medical history of diabetes and CAD presented to the emergency department with 2 days of chest pain/pressure. She describes the pain as being sometimes sharp and sometimes dull, sometimes radiates straight through to her back sometimes it just stays midsternal in her chest. She she denies any exertional chest pain and reports this happens while she was sitting. She denies any sweating, shortness of breath, or headache during these episodes. She is established with [facility] cardiology and they have been consulted White blood cell count was 11.4, troponins negative x3, BUN 24, creatinine 1.2, GFR 45, urine resulted 1+ bacteria, 2+ leukocyte esterase, and 1+ mucus and she received IV fluids and ceftriaxone IV Chest x-ray showed borderline cardiomegaly. Cardiology has been consulted and recommends: 1. Chest pain with atypical features, normal troponins x3 and EKG with no acute ST segment changes. Patient does have known coronary disease by cardiac catheterization of 2017 but recent stress testing last year showed no evidence of ischemia. With no evidence of infarction at this time, would recommend repeating Lexiscan Myoview for further evaluation. If her Lexiscan Myoview shows no evidence of ischemia then resume home medications and patient could be discharged home for outpatient follow-up. If ischemia is seen on the stress test then would hold for cardiac catheterization tomorrow. Would hold her Xarelto today just in case she needs a cardiac catheterization tomorrow. 2. History of paroxysmal atrial fibrillation, currently sinus rhythm on flecainide therapy. 3. History of CVA, on Xarelto therapy 4. Obesity 5. Diabetes mellitus, per PCP 6. UTI, on antibiotic ceftriaxone. Awaiting stress test results Awaiting urine culture Hospital Course Hospital Course: Laboratory Tests 01/11/20 01/11/20 01/11/20 16:43 16:43 16:48 WBC 11.4 H RBC 4.96 Hgb 14.6 Hct 43.8 MCV 88.4 MCH 29.5 MCHC 33.4 RDW 13.3 Plt Count 497 H MPV 7.6 Neut % (Auto) 69.2 Lymph % (Auto) 22.8 [place] % (Auto) 5.8 Eos % (Auto) 1.7 Baso % (Auto) 0.6 Neut # (Auto) 7.9 H Lymph # (Auto) 2.6 [place] # (Auto) 0.7 Eos # (Auto) 0.2 Baso # (Auto) 0.1 Activated Clotting Time Sodium 141 Potassium 3.9 Chloride 99 Carbon Dioxide 32 H Anion Gap 13.9 BUN 24 H Creatinine 1.20 H Estimated Creat Clear 41 Estimated GFR 45 L Est GFR ( Amer) 54 L Glucose 124 H POC Glucose Calcium 10.0 Troponin I < 0.01 Triglycerides Cholesterol LDL Cholesterol Direct VLDL Cholesterol HDL Cholesterol Cholesterol/HDL Ratio Urine Color Urine Appearance Urine pH Ur Specific [place] Urine Protein Urine Glucose (UA) Urine Ketones Urine Blood Urine Nitrate Urine Bilirubin Urine Urobilinogen Ur Leukocyte Esterase Urine RBC Urine WBC Ur Squamous Epith Cells Urine Bacteria Hyaline Casts Urine Mucus SARS-CoV-2 IgG Ab (Rapid) Negative SARS-CoV-2 IgM Ab (Rapid) Negative 01/11/20 01/11/20 01/11/20 19:41 20:13 23:12 WBC RBC Hgb Hct MCV MCH MCHC RDW Plt Count MPV Neut % (Auto) Lymph % (Auto) [place] % (Auto) Eos % (Auto) Baso % (Auto) Neut # (Auto) Lymph # (Auto) [place] # (Auto) Eos # (Auto) Baso # (Auto) Activated Clotting Time Sodium Potassium Chloride Carbon Dioxide Anion Gap BUN Creatinine Estimated Creat Clear Estimated GFR Est GFR ( Amer) Glucose POC Glucose Calcium Troponin I < 0.01 < 0.01 Triglycerides Cholesterol LDL Cholesterol Direct VLDL Cholesterol HDL Cholesterol Cholesterol/HDL Ratio Uri
--- NOTE | 2020-01-14 11:53 | HMH.PHACLD ---
Marybel Shin has received discharge medication counseling on the following medications: NEW MEDICATIONS: PLAVIX, ASPIRIN CONTINUE MEDICATIONS: ATENOLOL, LOSARTAN, FENOFIBRATE PATIENT WAS PRESCRIBED ATORVASTATIN, HOWEVER, PATIENT STATES SHE CAN'T TAKE ANY STATINS AND WILL NOT GET THAT ONE FILLED (ROSUVASTATIN LISTED ALLERGY). PATIENT IS TAKING FENOFIBRATE.
--- NOTE | 2020-01-14 11:55 | HMH.PHAINT ---
DISCHARGE COUNSELING COMPLETED.
== END 2020-01-14 13:15 | disposition home or self-care (01) ==
LOC: ER 19:04 → 2ND 19:19
PROVIDERS: Internal Medicine; Nurse Practitioner Family; Physician Assistant; Admitting Provider Family Medicine; Emergency Provider Emergency Medicine; PCP Physician Assistant; Visit Provider Emergency Medicine
DX: I25.118 Atherosclerotic heart disease of native coronary artery with other forms of angina pectoris (principal); I48.0 Paroxysmal atrial fibrillation; I11.0 Hypertensive heart disease with heart failure; I50.30 Unspecified diastolic (congestive) heart failure; J44.9 Chronic obstructive pulmonary disease, unspecified; E03.9 Hypothyroidism, unspecified; E11.9 Type 2 diabetes mellitus without complications; Z79.4 Long term (current) use of insulin; Z79.01 Long term (current) use of anticoagulants; Z88.8 Allergy status to other drugs, medicaments and biological substances; Z87.891 Personal history of nicotine dependence; N39.0 Urinary tract infection, site not specified
CPT/HCPCS: 36415; 71045; 78452; 80048; 80061; 81001; 82962; 84484; 85025; 85347; 86328; 87086; 92928; 93005; 93017; 93458; 99152; 99284; A9502; C1725; C1769; C1876; C9600; G0378; J1644; J2785; Q9967

== ENCOUNTER 2020-01-17 16:22 | Emergency (ER) | payer MEDICARE, BC, SELFPAY ==
[2020-01-17] VITALS (7 sets, daily range): BP systolic 106–118; BP diastolic 46–65; PULSE 59–64; RESP 18–20; TEMP 36.4–36.8; O2SAT 93–96; BMI 37.5
--- NOTE | 2020-01-17 16:23 | HMH.EDGENADL ---
ED Disposition Clinical Impression: Dehydration, Low blood pressure reading, Atypical chest pain Disposition: Home, Self-Care Condition on Discharge: Good Instructions: DI for Atypical Chest Pain Additional Instructions: Do not take amlodipine until further instructed by your primary care provider or Dr. Albright. Do not take Lasix tomorrow, you can resume Lasix after that. Call your primary care doctor tomorrow for follow-up. Return to the emergency department if blood pressure is running below 100 systolic. Additional instructions for CHEST PAIN: See your physician as soon as possible for further evaluation. Return immediately if worsening chest pain, vomiting, shortness of breath, fever, coughing of blood. Referrals: Reva Lou PA [Primary Care Provider] - - Critical Care Critical Care Time: No Attestation: On , the high probability of a clinically significant, sudden or life threatening deterioration of the following system(s) required my full and direct attention, intervention and personal management. The time I documented below is in addition to time spent performing reported procedures but includes the following listed in this critical care notation. Medical Decision Making - Medical Records Medical records reviewed: Yes: I reviewed the patient's medical records. MR Comment: 01/11/2020. Abnormal stress test on 01/12/2020. Cardiac cath and stent on 01/13/2020. Discharge 01/14/2020. Patient states she also had a UTI when in the hospital. States she was treated with IV antibiotics but no antibiotics at discharge. Culture result reviewed, multiple organisms that suggest contamination. - Marco A Inquiry Pt receiving controlled substance: No Vital Signs: 01/17/20 16:25 01/17/20 16:47 01/17/20 17:10 Temperature 98.2 F Temperature Source Oral Pulse Rate [Radial] 64 62 61 Respiratory Rate 18 18 Blood Pressure [Right Arm] 118/65 117/61 112/62 Blood Pressure Mean [Right Arm] 82 79 78 Blood Pressure Source [Right Arm] Automatic Cuff Automatic Cuff Automatic Cuff Blood Pressure Position [Right Arm] Sitting Supine Supine 02 Sat by Pulse Oximetry 95 94 L 93 L Oxygen Delivery Method Room Air Room Air Room Air 01/17/20 17:30 01/17/20 18:00 Temperature Temperature Source Pulse Rate [Radial] 61 64 Respiratory Rate 20 Blood Pressure [Right Arm] 116/58 L 106/53 L Blood Pressure Mean [Right Arm] 77 70 Blood Pressure Source [Right Arm] Automatic Cuff Automatic Cuff Blood Pressure Position [Right Arm] Sitting Supine 02 Sat by Pulse Oximetry 95 95 Oxygen Delivery Method Room Air Room Air - Lab Data Lab Results 01/17/20 16:20: WBC 11.2 H, RBC 4.80, Hgb 14.1, Hct 41.7, MCV 86.9, MCH 29.5, MCHC 33.9, RDW 13.4, Plt Count 427 H, MPV 7.6, Neut % (Auto) 66.1, Lymph % (Auto) 24.5, [place] % (Auto) 6.4, Eos % (Auto) 2.3, Baso % (Auto) 0.7, Neut # (Auto) 7.4, Lymph # (Auto) 2.7, [place] # (Auto) 0.7, Eos # (Auto) 0.3, Baso # (Auto) 0.1 01/17/20 16:20: Sodium 137, Potassium 4.3, Chloride 95 L, Carbon Dioxide 31 H, Anion Gap 15.3 H, BUN 33 H, Creatinine 1.10 H, Estimated Creat Clear 81, Estimated GFR 50 L, Est GFR ( Amer) 60, Glucose 265 H, Calcium 9.7, Troponin I 0.08 H 01/17/20 16:45: Lactate 2.7 H 01/17/20 17:40: Urine Color Yellow, Urine Appearance Clear, Urine pH 5.5, Ur Specific [place] 1.020, Urine Protein Negative, Urine Glucose (UA) Trace, Urine Ketones Negative, Urine Blood Negative, Urine Nitrate Negative, Urine Bilirubin Negative, Urine Urobilinogen 0.2, Ur Leukocyte Esterase Trace, Urine WBC 10-20, Ur Squamous Epith Cells 10-20 Result diagrams: 01/17/20 16:20 01/17/20 16:20 Orders (Tests/Meds): ED MEDICATIONS Discontinued Medications Generic Name Dose Route Start Last Admin Trade Name Freq PRN Reason Stop Dose Admin Sodium Chloride 1,000 ml 01/17/20 17:03 01/17/20 17:06 Sod Chlor 0.9% 1000ml Bag IV 01/17/20 17:04 1,000 ml BOLUS ONE Administration ORDERS
--- NOTE | 2020-01-17 16:29 | ECG_ITS ---
APPROVED REPORT Exam: Resting ECG HR:65 bpm ECG Measurements Heart Rate 65 AXES MI 172 P 0 QRSd 80 QRS 84 QT 448 T 44 QTc 465 <Conclusion> Normal sinus rhythm Normal ECG Electronically signed by : Niraj Jasso, 01/19/2020 17:22:32
--- NOTE | 2020-01-17 16:29 | XR_ITS ---
PROCEDURE: XR CHEST PORTABLE CLINICAL HISTORY: weakness COMPARISON: CR CXR CHEST(2 VIEWS-NOT PORTABLE) from 01/10/[id number] abdomen pelvis w con from 03/21/2018 CR CXR2V XR chest 2V from 08/25/2018 CR XR CHEST PORTABLE from 01/11/2020 FINDINGS: There is mild cardiomegaly without failure. Mitral valve annular calcification is noted. There is calcified granuloma in the right lower lobe. The lungs are clear without infiltrates, suspicious nodules, or pleural effusions. No acute bony abnormalities. IMPRESSION: Mild cardiomegaly with mitral valve annular calcification otherwise negative Dictated by: Carter Souza MD 01/17/2020 18:58 Carter Souza MD in [place] 01/17/2020 18:58
[2020-01-17 16:45] LABS: Basophils # 0.1 K/mm3 (0-0.2); Basophils % 0.7 % (0.1-2.0); Eosinophils # 0.3 K/mm3 (0.0-0.4); Eosinophils % 2.3 % (0.1-12.0); Hematocrit 41.7 % (37.0-47.0); Hemoglobin 14.1 g/dL (12.2-16.2); Lymphocytes # 2.7 K/mm3 (0.7-4.5); Lymphocytes % 24.5 % (10-50); Mean Corpuscular HGB Conc 33.9 g/dL (31.8-35.4); Mean Corpuscular Hemoglobin 29.5 pg (27.0-31.2); Mean Corpuscular Volume 86.9 fl (81-99); Mean Platelet Volume 7.6 fl (7.4-10.4); Monocytes # 0.7 K/mm3 (0.1-1.0); Monocytes % 6.4 % (1.7-9.3); Neutrophils # 7.4 K/mm3 (1.8-7.8); Neutrophils % 66.1 % (37.0-80.0); Platelet Count 427 K/mm3 (142-424); Red Cell Distribution Width 13.4 % (11.5-17.5); White Blood Count 11.2 K/mm3 (4.8-10.8)
[2020-01-17 16:46] LABS: Chloride 95 mmol/L (98-107)
[2020-01-17 16:47] LABS: Potassium 4.3 mmoL/L (3.5-5.1); Sodium 137 mmol/L (136-145)
[2020-01-17 16:49] LABS: Blood Urea Nitrogen 33 mg/dl (7-17); Creatinine Clearance Estimated 81 mL/min (50-200); Estimated Glomerular Filt Rate 50 ml/min (>60); GFR (African American) 60 ML/MIN (>60)
[2020-01-17 16:50] LABS: Anion Gap 15.3 mEq/L (5-15); Calcium 9.7 mg/dl (8.4-10.2); Carbon Dioxide 31 mmol/L (22.0-30.0); Glucose 265 mg/dl (74-100)
[2020-01-17 17:03] LABS: Troponin I 0.08 ng/ml (0.00-0.034)
[2020-01-17 17:13] LABS: Lactic Acid 2.7 mmol/L (0.7-2.1)
--- NOTE | 2020-01-17 17:15 | PC.NURSE ---
dr ching spoke with dr prado , he doesnt feel at this time that its cardiac related ,but to speak with PCP
[2020-01-17 17:42] LABS: Microscopic, Urine URINE MICROSCOPIC (MICROSCOPIC)
[2020-01-17 17:50] LABS: Appearance,Urine CLEAR (Clear); Bilirubin,Urine Negative (Negative); Blood, Urine Negative (Negative); Color,Urine YELLOW (Yellow); Glucose,Urine (UA) TRACE (Negative); Ketones,Urine Negative (Negative); Leukocyte Esterase,Urine TRACE (Negative); Nitrate,Urine Negative (Negative); PH,Urine 5.5 (5.0-8.5); Protein,Urine Negative (Negative); Urobilinogen,Urine 0.2 EU/dl (0.2)
== END 2020-01-17 18:52 | disposition home or self-care (01) ==
PROVIDERS: Emergency Provider Emergency Medicine; PCP Physician Assistant
DX: E86.0 Dehydration (principal); R03.1 Nonspecific low blood-pressure reading; R07.89 Other chest pain; I25.10 Atherosclerotic heart disease of native coronary artery without angina pectoris; I48.20 Chronic atrial fibrillation, unspecified; I10 Essential (primary) hypertension; F41.8 Other specified anxiety disorders; K21.9 Gastro-esophageal reflux disease without esophagitis; E03.9 Hypothyroidism, unspecified; E11.9 Type 2 diabetes mellitus without complications; Z87.891 Personal history of nicotine dependence; Z90.49 Acquired absence of other specified parts of digestive tract; Z90.710 Acquired absence of both cervix and uterus; Z79.899 Other long term (current) drug therapy; J44.9 Chronic obstructive pulmonary disease, unspecified; Z88.8 Allergy status to other drugs, medicaments and biological substances
CPT/HCPCS: 71045; 80048; 81001; 83605; 84484; 85025; 87040; 87086; 93005; 96365; 99284

== ENCOUNTER → 2020-01-21 15:55 | Outpatient (CLI) | payer MEDICARE, BC, SELFPAY | PROVIDERS: Visit Provider Family Medicine | DX: N39.0 Urinary tract infection, site not specified (principal) | CPT/HCPCS: 87086 ==

== ENCOUNTER → 2020-01-29 08:10 | Outpatient (CLI) | payer MEDICARE, BC, SELFPAY ==
[2020-01-29 10:42] LABS: Alanine Aminotransferase 16 U/L (12-78); Albumin Level 3.7 g/dl (3.5-5.0); Alkaline Phosphatase 106 U/L (38-126); Anion Gap 12.5 mEq/L (5-15); Aspartate Amino Transferase 22 U/L (14-36); Bilirubin,Direct 0.2 mg/dl (0.0-0.4); Bilirubin,Indirect 0.2 mg/dL (0.0-0.9); Bilirubin,Total 0.4 mg/dl (0.2-1.3); Bilirubin,Unconjugated 0.2 mg/dL (0.0-1.1); Blood Urea Nitrogen 26 mg/dl (7-17); Calcium 9.6 mg/dl (8.4-10.2); Carbon Dioxide 30 mmol/L (22.0-30.0); Chloride 99 mmol/L (98-107); Estimated Glomerular Filt Rate 55 ml/min (>60); GFR (African American) 67 ML/MIN (>60); Glucose 285 mg/dl (74-100); Potassium 4.5 mmoL/L (3.5-5.1); Sodium 137 mmol/L (136-145); Total Protein,Serum 6.7 g/dl (6.3-8.2)
[2020-01-29 10:45] LABS: NT Pro Brain Natriuretic Pep. 521 pg/mL (0-125)
== END ==
PROVIDERS: Visit Provider Internal Medicine Cardiovascular Disease
DX: R06.00 Dyspnea, unspecified; E78.5 Hyperlipidemia, unspecified; I25.10 Atherosclerotic heart disease of native coronary artery without angina pectoris; I48.0 Paroxysmal atrial fibrillation; I50.9 Heart failure, unspecified; I63.9 Cerebral infarction, unspecified
CPT/HCPCS: 36415; 80048; 80076; 83880

== ENCOUNTER → 2020-02-03 08:20 | Outpatient (CLI) | payer MEDICARE, BC, SELFPAY ==
--- NOTE | 2020-02-03 08:20 | MM_ITS ---
PROCEDURE: MM DIG SCREENING MAMM BI W/CAD Digital Breast Tomosynthesis Included CLINICAL INDICATION: screening There is no personal or family history of breast cancer. There has been a previous biopsy left breast for benign disease. COMPARISON: MG DMSB DIG MAMM-SCREEN SABINO from 07/19/2015 MG DMSB DIG MAMM-SCREEN SABINO W/CAD from 08/24/2016 MG SCBI MM Dig screening mamm BI w/CAD from 07/24/2018 TECHNIQUE: Standard CC and MLO images and 3D Tomosynthesis was obtained. R2 CAD reviewed. FINDINGS: Scattered fibroglandular densities are seen throughout both breast and the findings are bilateral and symmetrical. There is minimal arterial calcification in each breast. There are few scattered microcalcifications in each breast. There is a stable nodular density in near the axillary tail right breast likely a low-lying node. There is no suspicious lesion and no suspicious microcalcifications. IMPRESSION: Fibrofatty parenchyma with no suspicious lesions seen BI-RAD Category: 2 Benign Finding(s) FOLLOW-UP: 1YR 1 Year Follow-up (A letter has been sent to the patient regarding results of the study.) Dictated by: Dr. Devonte Beard MD 02/05/2020 10:00 Dr. Devonte Beard MD in [place] 02/05/2020 10:00
== END ==
PROVIDERS: PCP Physician Assistant; Visit Provider Physician Assistant
DX: Z12.31 Encounter for screening mammogram for malignant neoplasm of breast (principal)
CPT/HCPCS: 77063; 77067

== ENCOUNTER → 2020-05-10 08:34 | Outpatient (CLI) | payer MEDICARE, BC, SELFPAY ==
[2020-05-10 08:39] LABS: Microscopic, Urine URINE MICROSCOPIC (MICROSCOPIC)
[2020-05-10 09:57] LABS: Chloride 96 mmol/L (98-107); Potassium 4.6 mmoL/L (3.5-5.1); Sodium 134 mmol/L (136-145)
[2020-05-10 10:00] LABS: Anion Gap 13.6 mEq/L (5-15); Blood Urea Nitrogen 26 mg/dl (7-17); Calcium 9.8 mg/dl (8.4-10.2); Carbon Dioxide 29 mmol/L (22.0-30.0); Estimated Glomerular Filt Rate 55 ml/min (>60); GFR (African American) 67 ML/MIN (>60); Phosphorous 4.9 mg/dl (2.5-4.5)
[2020-05-10 10:12] LABS: Appearance,Urine CLEAR (Clear); Bilirubin,Urine Negative (Negative); Blood, Urine Negative (Negative); Color,Urine YELLOW (Yellow); Glucose,Urine (UA) 3+ (Negative); Ketones,Urine Negative (Negative); Leukocyte Esterase,Urine Negative (Negative); Nitrate,Urine Negative (Negative); PH,Urine 5.5 (5.0-8.5); Protein,Urine Negative (Negative); Specific Gravity, Urine 1.015 (1.005-1.030); Urobilinogen,Urine 0.2 EU/dl (0.2)
[2020-05-10 10:23] LABS: Glucose 505 mg/dl (74-100)
== END ==
PROVIDERS: Visit Provider Internal Medicine Nephrology
DX: R80.9 Proteinuria, unspecified (principal)
CPT/HCPCS: 36415; 80069; 81001

== ENCOUNTER 2020-05-20 15:36 | Emergency (ER) | payer MEDICARE, BC, SELFPAY ==
--- NOTE | 2020-05-20 15:32 | ECG_ITS ---
APPROVED REPORT Exam: Resting ECG HR:88 bpm ECG Measurements Heart Rate 88 AXES ID 150 P 68 QRSd 82 QRS 72 QT 368 T 48 QTc 445 Conclusion Normal sinus rhythm Normal ECG Electronically signed by : Michele Ruby, 05/22/2020 13:37:46
[2020-05-20 15:37] VITALS: BP 133/72; PULSE 92; RESP 22; TEMP 37; O2SAT 96; BMI 39.4
--- NOTE | 2020-05-20 15:41 | XR_ITS ---
PROCEDURE: XR CHEST 2V CLINICAL HISTORY: cp COMPARISON: CR CXR2V XR chest 2V from 08/25/2018 CR XR CHEST PORTABLE from 01/11/2020 CR XR CHEST PORTABLE from 01/17/2020 FINDINGS: The cardiomediastinal silhouette and pulmonary vascularity are within normal limits. The lungs are clear without infiltrates, suspicious nodules, or pleural effusions. There are calcified hilar nodes bilaterally and small calcified granulomata in both lung jaime. No acute bony abnormalities. IMPRESSION: Old granulomatous disease, no acute chest pathology noted Dictated by: Dr. Devonte Beard MD 05/20/2020 16:21 Dr. Devonte Beard MD in [place] 05/20/2020 16:21
--- NOTE | 2020-05-20 15:41 | HMH.EDCP ---
ED Disposition Clinical Impression: Tenderness of left lower extremity Disposition: Home, Self-Care Condition on Discharge: Good - Critical Care Critical Care Time: No Attestation: On , the high probability of a clinically significant, sudden or life threatening deterioration of the following system(s) required my full and direct attention, intervention and personal management. The time I documented below is in addition to time spent performing reported procedures but includes the following listed in this critical care notation. Medical Decision Making - Marco A Inquiry Pt receiving controlled substance: No Vital Signs: 05/20/20 15:37 05/20/20 16:11 05/20/20 17:49 Temperature 98.6 F Temperature Source Oral Pulse Rate [Radial] 92 H 80 69 Respiratory Rate 22 18 22 Blood Pressure [Right Arm] 133/72 126/57 L 141/72 H Blood Pressure Mean [Right Arm] 92 80 95 Blood Pressure Source [Right Arm] Automatic Cuff Automatic Cuff Blood Pressure Position [Right Arm] Sitting Supine Sitting 02 Sat by Pulse Oximetry 96 94 L 94 L Oxygen Delivery Method Room Air - Lab Data Lab Results 05/20/20 15:39: WBC 5.3, RBC 5.27, Hgb 13.5, Hct 43.2, MCV 82.0, MCH 25.6 L, MCHC 31.2 L, RDW 14.4, Plt Count 303, MPV 7.7, Neut % (Auto) 59.6, Lymph % (Auto) 27.9, [place] % (Auto) 9.7 H, Eos % (Auto) 1.7, Baso % (Auto) 1.0, Neut # (Auto) 3.2, Lymph # (Auto) 1.5, [place] # (Auto) 0.5, Eos # (Auto) 0.1, Baso # (Auto) 0.1 05/20/20 15:39: PT 12.7 H, INR 1.16 H 05/20/20 15:39: Sodium 136, Potassium 3.6, Chloride 98, Carbon Dioxide 29, Anion Gap 12.6, BUN 20 H, Creatinine 1.00, Estimated Creat Clear 94, Estimated GFR 55 L, Est GFR ( Amer) 67, Glucose 363 H, Calcium 9.6, Total Bilirubin 0.4, AST 28, ALT 25, Alkaline Phosphatase 119, Troponin I < 0.01, Total Protein 7.5, Albumin 4.0, Globulin 3.5 H, Albumin/Globulin Ratio 1.1 05/20/20 17:51: Troponin I < 0.01 Result diagrams: 05/20/20 15:39 05/20/20 15:39 Orders (Tests/Meds): ED MEDICATIONS Generic Name Dose Route Start Last Admin Trade Name Aure PRN Reason Stop Dose Admin Nitroglycerin 0.4 mg 05/20/20 15:41 Nitroglycerin 0.4mg Sl Tablet SL 05/21/20 15:41 [id number] PRN Chest Pain Discontinued Medications Generic Name Dose Route Start Last Admin Trade Name Aure PRN Reason Stop Dose Admin Aspirin 324 mg 05/20/20 15:41 05/20/20 15:49 Aspirin 81mg Chewable Tablet PO 05/20/20 15:42 324 mg ONCE ONE Administration ORDERS Category Date Time Status Troponin I Q3H Lab 05/20/20 18:45 Ordered Troponin I Q3H Lab 05/20/20 21:45 Ordered Medical Decision Narrative: 64yo F evaluated for concern for possible DVT. Bedside Dopplers were performed by pc tech and found to be negative. D-dimer was obtained for extra assurance and also found to be negative. Remainder of her labs shows only hyperglycemia. Results were discussed with patient at bedside. Encouraged her to continue taking baby aspirin and stay well-hydrated as her pain may be related to dehydration secondary to Covid. 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 She tested positive for Covid the couple of days as well. She denies shortness of breath. She reports taking baby aspirin every day. She has no other concerns at this time. - Related Data Home Medications Medication Instructions Recorded Confirmed ezetimibe 10 mg tablet 10 mg PO DAILY tab 12/02/19 05/20/20 fenofibrate 160 mg tablet 160 mg PO DAILY tab 12/02/19 05/20/20 rivaroxaban 20 mg tablet 20 mg PO DAILY tab 12/02/19 05/20/20 Dexlansoprazole [Dexilant] 60 mg PO DAILY 01/10/
[2020-05-20 15:54] LABS: Basophils # 0.1 K/mm3 (0-0.2); Eosinophils # 0.1 K/mm3 (0.0-0.4); Eosinophils % 1.7 % (0.1-12.0); Hematocrit 43.2 % (37.0-47.0); Hemoglobin 13.5 g/dL (12.2-16.2); Lymphocytes # 1.5 K/mm3 (0.7-4.5); Lymphocytes % 27.9 % (10-50); Mean Corpuscular HGB Conc 31.2 g/dL (31.8-35.4); Mean Corpuscular Hemoglobin 25.6 pg (27.0-31.2); Mean Platelet Volume 7.7 fl (7.4-10.4); Monocytes # 0.5 K/mm3 (0.1-1.0); Monocytes % 9.7 % (1.7-9.3); Neutrophils # 3.2 K/mm3 (1.8-7.8); Neutrophils % 59.6 % (37.0-80.0); Platelet Count 303 K/mm3 (142-424); Red Blood Count 5.27 M/mm3 (4.20-5.40); Red Cell Distribution Width 14.4 % (11.5-17.5); White Blood Count 5.3 K/mm3 (4.8-10.8)
[2020-05-20 15:59] LABS: Chloride 98 mmol/L (98-107); Potassium 3.6 mmoL/L (3.5-5.1); Sodium 136 mmol/L (136-145)
[2020-05-20 16:02] LABS: Alanine Aminotransferase 25 U/L (12-78); Albumin/Globulin Ratio 1.1 (1.1-1.8); Alkaline Phosphatase 119 U/L (38-126); Anion Gap 12.6 mEq/L (5-15); Aspartate Amino Transferase 28 U/L (14-36); Bilirubin,Total 0.4 mg/dl (0.2-1.3); Blood Urea Nitrogen 20 mg/dl (7-17); Carbon Dioxide 29 mmol/L (22.0-30.0); Creatinine Clearance Estimated 94 mL/min (50-200); Estimated Glomerular Filt Rate 55 ml/min (>60); GFR (African American) 67 ML/MIN (>60); Globulin 3.5 g/dL (1.3-3.2); Total Protein,Serum 7.5 g/dl (6.3-8.2)
[2020-05-20 16:03] LABS: Calcium 9.6 mg/dl (8.4-10.2); Glucose 363 mg/dl (74-100)
[2020-05-20 16:05] LABS: INR 1.16 (0.9-1.1); Prothrombin Time 12.7 seconds (9.4-11.8)
[2020-05-20 16:11] VITALS: BP 126/57; PULSE 80; RESP 18; O2SAT 94
[2020-05-20 16:17] LABS: Troponin I < 0.01 ng/ml (0.00-0.034)
[2020-05-20 17:49] VITALS: BP 141/72; PULSE 69; RESP 22; O2SAT 94
--- NOTE | 2020-05-20 18:11 | ECG_ITS ---
APPROVED REPORT Exam: Resting ECG HR:76 bpm ECG Measurements Heart Rate 76 AXES [place] 144 P 60 QRSd 82 QRS 63 QT 444 T 63 QTc 499 Conclusion Sinus rhythm with frequent premature ventricular complexes in a pattern of bigeminy Prolonged QT Abnormal ECG Electronically signed by : Michele Ruby, 05/22/2020 13:37:37
[2020-05-20 18:28] LABS: Troponin I < 0.01 ng/ml (0.00-0.034)
--- NOTE | 2020-05-20 18:56 | HMH.EDCP ---
ED Disposition Clinical Impression: Chest pain Qualifiers: Chest pain type: unspecified Qualified Code(s): R07.9 - Chest pain, unspecified Disposition: Home, Self-Care Condition on Discharge: Good Referrals: Reva Lou PA [Primary Care Provider] - 3 days - Critical Care Critical Care Time: No Attestation: On 05/20/20, the high probability of a clinically significant, sudden or life threatening deterioration of the following system(s) required my full and direct attention, intervention and personal management. The time I documented below is in addition to time spent performing reported procedures but includes the following listed in this critical care notation. Medical Decision Making - Medical Records Medical records reviewed: Yes: I reviewed the patient's medical records. - Marco A Inquiry Pt receiving controlled substance: No Vital Signs: 05/20/20 15:37 05/20/20 16:11 05/20/20 17:49 Temperature 98.6 F Temperature Source Oral Pulse Rate [Radial] 92 H 80 69 Respiratory Rate 22 18 22 Blood Pressure [Right Arm] 133/72 126/57 L 141/72 H Blood Pressure Mean [Right Arm] 92 80 95 Blood Pressure Source [Right Arm] Automatic Cuff Automatic Cuff Blood Pressure Position [Right Arm] Sitting Supine Sitting 02 Sat by Pulse Oximetry 96 94 L 94 L Oxygen Delivery Method Room Air - Lab Data Lab Results 05/20/20 15:39: WBC 5.3, RBC 5.27, Hgb 13.5, Hct 43.2, MCV 82.0, MCH 25.6 L, MCHC 31.2 L, RDW 14.4, Plt Count 303, MPV 7.7, Neut % (Auto) 59.6, Lymph % (Auto) 27.9, [place] % (Auto) 9.7 H, Eos % (Auto) 1.7, Baso % (Auto) 1.0, Neut # (Auto) 3.2, Lymph # (Auto) 1.5, [place] # (Auto) 0.5, Eos # (Auto) 0.1, Baso # (Auto) 0.1 05/20/20 15:39: PT 12.7 H, INR 1.16 H 05/20/20 15:39: Sodium 136, Potassium 3.6, Chloride 98, Carbon Dioxide 29, Anion Gap 12.6, BUN 20 H, Creatinine 1.00, Estimated Creat Clear 94, Estimated GFR 55 L, Est GFR ( Amer) 67, Glucose 363 H, Calcium 9.6, Total Bilirubin 0.4, AST 28, ALT 25, Alkaline Phosphatase 119, Troponin I < 0.01, Total Protein 7.5, Albumin 4.0, Globulin 3.5 H, Albumin/Globulin Ratio 1.1 05/20/20 17:51: Troponin I < 0.01 Result diagrams: 05/20/20 15:39 05/20/20 15:39 Orders (Tests/Meds): ED MEDICATIONS Generic Name Dose Route Start Last Admin Trade Name Freq PRN Reason Stop Dose Admin Nitroglycerin 0.4 mg 05/20/20 15:41 Nitroglycerin 0.4mg Sl Tablet SL 05/21/20 15:41 Q5MINP PRN Chest Pain Discontinued Medications Generic Name Dose Route Start Last Admin Trade Name Freq PRN Reason Stop Dose Admin Aspirin 324 mg 05/20/20 15:41 05/20/20 15:49 Aspirin 81mg Chewable Tablet PO 05/20/20 15:42 324 mg ONCE ONE Administration ORDERS Category Date Time Status Troponin I Q3H Lab 05/20/20 21:45 Ordered - Radiology Data #1 Image(s): Chest Image Reviewed: Yes I reviewed the patient's radiology results, Yes I reviewed the patient's radiology image Preliminary Findings: Normal/NAD - ECG Data Tracing #1 Normal sinus rhythm, no ectopy, no ST elevation or depression, normal intervals Medical Decision Narrative: 64yo F evaluated secondary concern for possible arrhythmia. On initial presentation, the patient is in no acute distress. Her EKG shows normal sinus rhythm without ectopy. Typical cardiac labs were completed and negative. Chest x-ray unremarkable. Given the patient's cardiac history, she was observed for an additional 2 hours, her troponin was repeated and found to be negative again. Patient developed bigeminy on telemetry and therefore repeat EKG was obtained. No other significant findings on that study. Patient then returned to a normal sinus rhythm without abnormal finding. She is remained asymptomatic throughout her observation the emergency department. Her heart score is 4 and she is appropriate and stable for discharge home at this time. Encouraged the patient to return if she develops any furthe
[2020-05-20 19:06] VITALS: BP 123/67; PULSE 67; RESP 16; TEMP 36.6; O2SAT 98
== END 2020-05-20 19:08 | disposition home or self-care (01) ==
PROVIDERS: Emergency Provider Family Medicine; PCP Physician Assistant
DX: R07.9 Chest pain, unspecified (principal); I48.91 Unspecified atrial fibrillation; Z95.5 Presence of coronary angioplasty implant and graft; F41.8 Other specified anxiety disorders; J44.9 Chronic obstructive pulmonary disease, unspecified; K21.9 Gastro-esophageal reflux disease without esophagitis; I10 Essential (primary) hypertension; E78.5 Hyperlipidemia, unspecified; Z87.891 Personal history of nicotine dependence; Z79.899 Other long term (current) drug therapy
CPT/HCPCS: 36415; 71046; 80053; 84484; 85025; 85610; 93005; 99283

== ENCOUNTER → 2020-05-26 15:37 | Outpatient (CLI) | payer MEDICARE, SELFPAY | PROVIDERS: PCP Physician Assistant; Visit Provider Physician Assistant | DX: Z20.828 Contact with and (suspected) exposure to other viral communicable diseases (principal); U07.1 COVID-19 | CPT/HCPCS: U0003 ==

== ENCOUNTER → 2020-07-11 15:25 | Outpatient (CLI) | payer MEDICARE, BC, SELFPAY ==
[2020-07-11 15:36] LABS: Microscopic, Urine URINE MICROSCOPIC (MICROSCOPIC)
[2020-07-11 17:05] LABS: Hemoglobin A1C 12.5 % (4.0-6.0)
[2020-07-11 17:46] LABS: Appearance,Urine CLEAR (Clear); Bilirubin,Urine Negative (Negative); Blood, Urine TRACE-I (Negative); Color,Urine YELLOW (Yellow); Glucose,Urine (UA) 3+ (Negative); Ketones,Urine Negative (Negative); Leukocyte Esterase,Urine Negative (Negative); Nitrate,Urine Negative (Negative); PH,Urine 5.5 (5.0-8.5); Protein,Urine Negative (Negative); Specific Gravity, Urine 1.025 (1.005-1.030); Urobilinogen,Urine 0.2 EU/dl (0.2)
[2020-07-11 18:05] LABS: Albumin Level 3.8 g/dl (3.5-5.0); Anion Gap 10.5 mEq/L (5-15); Blood Urea Nitrogen 23 mg/dl (7-17); Calcium 9.9 mg/dl (8.4-10.2); Carbon Dioxide 27 mmol/L (22.0-30.0); Chloride 103 mmol/L (98-107); Estimated Glomerular Filt Rate 55 ml/min (>60); GFR (African American) 67 ML/MIN (>60); Glucose 357 mg/dl (74-100); Phosphorous 4.5 mg/dl (2.5-4.5); Potassium 4.5 mmoL/L (3.5-5.1); Sodium 136 mmol/L (136-145); Uric Acid 3.3 mg/dl (2.5-6.2)
[2020-07-11 18:23] LABS: Bacteria,Urine 1+ /lpf; WBC,Urine Occasional #/hpf (0-3)
[2020-07-11 18:24] LABS: 25-OH Vitamin D, Total 21.6 ng/mL (30-100)
[2020-07-11 20:31] LABS: Creatinine,Urine Random 77 mg/dL (Not Estab.)
[2020-07-11 23:44] LABS: Intact Parathyroid Hormone 22.5 pg/mL (7.5-53.5)
== END ==
PROVIDERS: Visit Provider Internal Medicine Nephrology
DX: N17.9 Acute kidney failure, unspecified (principal); N18.30 Chronic kidney disease, stage 3 unspecified; R80.9 Proteinuria, unspecified; E55.9 Vitamin D deficiency, unspecified; E11.65 Type 2 diabetes mellitus with hyperglycemia; Z79.4 Long term (current) use of insulin; I12.9 Hypertensive chronic kidney disease with stage 1 through stage 4 chronic kidney disease, or unspecified chronic kidney disease
CPT/HCPCS: 36415; 80069; 81001; 82306; 82570; 83036; 83970; 84155; 84550

== ENCOUNTER 2020-07-25 09:02 | Emergency (ER) | payer MEDICARE, BC, SELFPAY ==
[2020-07-25 09:13] VITALS: BP 143/75; PULSE 73; RESP 17; TEMP 36.7; O2SAT 97; BMI 36.6
[2020-07-25 09:28] VITALS: BP 140/70; PULSE 71; RESP 18; TEMP 36.6
--- NOTE | 2020-07-25 09:42 | HMH.EDUTC ---
[facility] [place] Clinical Impression: Exposure to COVID-19 virus Disposition: Home, Self-Care Condition on Discharge: Good Instructions: Preventing the Spread of Coronavirus Discharge Instructions Additional Instructions: Drink plenty of fluids. Take tylenol for pain or fever. Return if you begin to have difficulty breathing. Follow up with your regular doctor. GO TO THE ER FOR ANY WORSENING SYMPTOMS Referrals: Reva Lou PA [Primary Care Provider] - Time of Disposition: 09:52 Medical Decision Making - Medical Records Medical records reviewed: No: I reviewed the patient's medical records. - Marco A Inquiry Pt receiving controlled substance: No Vital Signs: 07/25/20 09:13 07/25/20 09:28 Temperature 98.1 F 98 F Temperature Source Oral Pulse Rate 71 Pulse Rate [Right Brachial] 73 Respiratory Rate 17 18 Blood Pressure 140/70 Blood Pressure [Right Arm] 143/75 H Blood Pressure Mean [Right Arm] 97 Blood Pressure Source [Right Arm] Automatic Cuff Blood Pressure Position [Right Arm] Sitting 02 Sat by Pulse Oximetry 97 Orders (Tests/Meds): ORDERS Category Date Time Status Covid-19 Nasal PCR ([facility]) Routine Lab 07/25/20 09:06 Ordered [facility] [place] - General Stated complaint: cov test Time Seen by Provider: 07/25/20 09:30 Mode of Arrival: Family Vehicle Description of Symptoms (Recalled from Triage Doc. by RN): Pt requesting covid test due to doctor requirements before appointment HEENT Symptoms (Recalled from RN notes): No Resp Symptoms (Recalled from RN notes): No Skin Symptoms (Recalled from RN notes): No MS Symptoms (Recalled from RN notes): No Functional Status (Recalled from RN notes): wnl - History of Present Illness Provider Complaint: She needs a covid-19 test before she is allowed to be seen at her doctor's office. She denies any complaints. - Related Data Home Medications Medication Instructions Recorded Confirmed ezetimibe 10 mg tablet 10 mg PO DAILY tab 12/02/19 06/29/20 fenofibrate 160 mg tablet 160 mg PO DAILY tab 12/02/19 06/29/20 rivaroxaban 20 mg tablet 20 mg PO DAILY tab 12/02/19 06/29/20 Dexlansoprazole [Dexilant] 60 mg PO DAILY 01/11/20 06/29/20 Alirocumab [Praluent Pen] 75 mg SQ Q2W 05/20/20 06/29/20 Amlodipine Besylate 2.5 mg PO DAILY 05/20/20 06/29/20 Aspirin [Aspirin 81mg EC Tab] 81 mg PO DAILY 05/20/20 06/29/20 Blood Sugar Diagnostic [Embrace See Rx Instructions .ROUTE 05/20/20 06/29/20 Blood Glucose System] .MEDSUPPLY Cholecalciferol (Vitamin D3) 1,250 mcg PO QWEEK 05/20/20 06/29/20 [Vitamin D3 50,000 unit Cap] Clopidogrel Bisulfate [Plavix] 75 mg PO DAILY 05/20/20 06/29/20 Famotidine [Acid [employer] Manager Architect] See Rx Instructions .ROUTE .COMPLEX 05/20/20 06/29/20 Insulin Glargine,Hum.rec.anlog See Rx Instructions .ROUTE .COMPLEX 05/20/20 06/29/20 [Lantus Solostar U-100 Insulin] Lancets [Pip Lancet] See Rx Instructions .ROUTE 05/20/20 06/29/20 .MEDSUPPLY Pen Needle, Diabetic [Techlite Pen See Rx Instructions .ROUTE 05/20/20 06/29/20 Needle] .MEDSUPPLY Previous Rx's Medication Instructions Recorded ondansetron 4 mg disintegrating 4 mg PO Q6H PRN #30 tab 01/21/20 tablet losartan 50 mg tablet 50 mg PO DAILY #30 tab 01/22/20 atenolol 25 mg tablet 25 mg PO DAILY #90 tab 03/09/20 bupropion HCl 150 mg tablet,12 hr 150 mg PO BID #180 each 04/28/20 sustained-release ropinirole 4 mg tablet 4 mg PO BID #180 tab 05/26/20 benzonatate 100 mg capsule 100 mg PO BID PRN #30 cap 05/27/20 prednisone 20 mg tablet 20 mg PO BID 5 Days #10 tab 05/27/20 famotidine 20 mg tablet 20 mg PO DAILY #90 tab 06/02/20 furosemide 40 mg tablet See Rx Instructions .ROUTE 06/23/20 .COMPLEX #90 tab sertraline 100 mg tablet See Rx Instructions .ROUTE 06/23/20 .COMPLEX #90 tab meloxicam 7.5 mg tablet 7.5 mg PO DAILY 30 Days #30 tab 06/29/20 buspirone 30 mg tablet 30 mg PO BID #60 tab 06/30/20 fluconazole 150 mg tablet 150 mg PO Q3D #3 tab 07/14/20 Al
--- NOTE | 2020-07-25 13:48 | PC.NURSE ---
PT NOTIFIED OF POSITIVE COVID TEST RESULTS
== END 2020-07-25 09:31 | disposition home or self-care (01) ==
PROVIDERS: Emergency Provider Nurse Practitioner Family; PCP Physician Assistant
DX: U07.1 COVID-19 (principal)
CPT/HCPCS: G0463; 99202; U0003

== ENCOUNTER 2020-07-27 14:09 | Emergency (ER) | payer MEDICARE, BC, SELFPAY ==
[2020-07-27] VITALS (7 sets, daily range): BP systolic 126–206; BP diastolic 57–109; PULSE 73–133; RESP 18–20; TEMP 36.9; O2SAT 95–98; BMI 36.6
--- NOTE | 2020-07-27 14:18 | ECG_ITS ---
APPROVED REPORT Exam: Resting ECG HR:116 bpm ECG Measurements Heart Rate 116 AXES QRSd 78 QRS 47 QT 332 T 46 QTc 461 Conclusion Atrial fibrillation with rapid ventricular response Abnormal ECG Electronically signed by : Michele Ruby, 07/28/2020 08:38:50
--- NOTE | 2020-07-27 14:25 | HMH.EDGENADL ---
ED Disposition Clinical Impression: Rapid atrial fibrillation Disposition: Home, Self-Care Condition on Discharge: Good Instructions: DI for Atrial Fibrillation Additional Instructions: See Dr. Albright in his office tomorrow as scheduled. Turn to the emergency department if palpitations, rapid heartbeat, or shortness of breath return. - Critical Care Critical Care Time: Yes Attestation: On 07/27/20, the high probability of a clinically significant, sudden or life threatening deterioration of the following system(s) required my full and direct attention, intervention and personal management. The time I documented below is in addition to time spent performing reported procedures but includes the following listed in this critical care notation. Total Critical Care Time: 30 Vital system(s) involved:: Circulatory Failure My critical care processes included: Assessment & monitoring of V/S, Initial and Re-exams, Data Review/Interpretation, Coordinating Care, Medication Orders and management, Documentation Medical Decision Making - Marco A Inquiry Pt receiving controlled substance: No Vital Signs: 07/27/20 14:09 07/27/20 14:39 07/27/20 15:09 Temperature 98.5 F Temperature Source Oral Pulse Rate [Left Radial] 126 H 133 H 102 H Respiratory Rate 20 18 Blood Pressure [Right Arm] 206/89 H 149/109 H 142/81 H Blood Pressure Mean [Right Arm] 128 122 101 Blood Pressure Source [Right Arm] Automatic Cuff Automatic Cuff Blood Pressure Position [Right Arm] Sitting Sitting 02 Sat by Pulse Oximetry 95 95 98 Oxygen Delivery Method Room Air Room Air 07/27/20 16:00 07/27/20 17:13 07/27/20 17:30 Temperature Temperature Source Pulse Rate [Left Radial] 103 H 115 H 75 Respiratory Rate 18 Blood Pressure [Right Arm] 142/83 H 136/93 H 126/57 L Blood Pressure Mean [Right Arm] 102 107 80 Blood Pressure Source [Right Arm] Automatic Cuff Blood Pressure Position [Right Arm] Sitting 02 Sat by Pulse Oximetry 96 96 98 Oxygen Delivery Method Room Air Room Air - Lab Data Lab results reviewed: Yes: I reviewed the patient's lab results. Lab Results 07/27/20 14:35: WBC 8.5, RBC 5.11, Hgb 12.6, Hct 41.9, MCV 82.0, MCH 24.6 L, MCHC 30.0 L, RDW 14.6, Plt Count 359, MPV 7.5, Neut % (Auto) 66.6, Lymph % (Auto) 25.1, [place] % (Auto) 5.3, Eos % (Auto) 2.3, Baso % (Auto) 0.7, Neut # (Auto) 5.7, Lymph # (Auto) 2.1, [place] # (Auto) 0.5, Eos # (Auto) 0.2, Baso # (Auto) 0.1 07/27/20 14:35: Sodium 136, Potassium 4.4, Chloride 103, Carbon Dioxide 25, Anion Gap 12.4, BUN 22 H, Creatinine 0.80, Estimated Creat Clear 86, Estimated GFR 72, Est GFR ( Amer) 87, Glucose 389 H, Calcium 9.5, Total Bilirubin 0.3, AST 29, ALT 21, Alkaline Phosphatase 112, Troponin I < 0.01, Total Protein 7.6, Albumin 4.1, Globulin 3.5 H, Albumin/Globulin Ratio 1.2 07/27/20 14:35: Magnesium 1.8 07/27/20 14:35: TSH 2.13, Free T4 Index 2.9 L, Thyroxine (T4) 8.8, T3 Uptake 33 Result diagrams: 07/27/20 14:35 07/27/20 14:35 Orders (Tests/Meds): ED MEDICATIONS Generic Name Dose Route Start Last Admin Trade Name Aure PRN Reason Stop Dose Admin Amlodipine Besylate 2.5 mg 07/28/20 09:00 Amlodipine 2.5mg Tablet PO 08/27/20 08:59 DAILY [facility] Aspirin 81 mg 07/28/20 09:00 Aspirin Ec 81mg Tablet PO 08/27/20 08:59 DAILY [facility] Atenolol 25 mg 07/28/20 09:00 Atenolol 25mg Tablet PO 08/27/20 08:59 DAILY [facility] Bupropion HCl 0 mg 07/27/20 18:00 Bupropion Hcl Sr 150mg Tab PO 08/26/20 17:59 .COMPLEX [facility] Clopidogrel Bisulfate 75 mg 07/28/20 09:00 Clopidogrel 75mg Tab PO 08/27/20 08:59 DAILY [facility] Diltiazem HCl 100 mg/ Sodium 100 mls @ 5 mls/hr 07/27/20 17:54 Chloride IV 08/26/20 14:57 .Q20H [facility] Protocol Insulin Human Lispro 0 unit 07/27/20 21:00 Humalog 100 Units/Ml 3ml Vial (Ssi) SQ 08/26/20 20:59 ACHS [facility] Protocol Non-Formulary Medication 30 mg 07/27/20 21:00 Buspirone Hcl [Bus
--- NOTE | 2020-07-27 14:26 | XR_ITS ---
PROCEDURE: XR CHEST PORTABLE CLINICAL HISTORY: covid positive, soa COMPARISON: CR XR CHEST PORTABLE from 01/11/2020 CR XR CHEST PORTABLE from 01/17/2020 CR XR CHEST 2V from 05/20/2020 FINDINGS: The cardiomediastinal silhouette and pulmonary vascularity are within normal limits. Calcified granuloma is present in the right lower lobe. The lungs otherwise clear. No acute bony abnormalities. IMPRESSION: No acute findings. Dictated by: Carter Souza MD 07/27/2020 15:45 Carter Souza MD in [place] 07/27/2020 15:45
[2020-07-27 15:06] LABS: Basophils # 0.1 K/mm3 (0-0.2); Basophils % 0.7 % (0.1-2.0); Eosinophils # 0.2 K/mm3 (0.0-0.4); Eosinophils % 2.3 % (0.1-12.0); Hematocrit 41.9 % (37.0-47.0); Hemoglobin 12.6 g/dL (12.2-16.2); Lymphocytes # 2.1 K/mm3 (0.7-4.5); Lymphocytes % 25.1 % (10-50); Mean Corpuscular Hemoglobin 24.6 pg (27.0-31.2); Mean Platelet Volume 7.5 fl (7.4-10.4); Monocytes # 0.5 K/mm3 (0.1-1.0); Monocytes % 5.3 % (1.7-9.3); Neutrophils # 5.7 K/mm3 (1.8-7.8); Neutrophils % 66.6 % (37.0-80.0); Platelet Count 359 K/mm3 (142-424); Red Blood Count 5.11 M/mm3 (4.20-5.40); Red Cell Distribution Width 14.6 % (11.5-17.5); White Blood Count 8.5 K/mm3 (4.8-10.8)
[2020-07-27 15:25] LABS: Chloride 103 mmol/L (98-107); Potassium 4.4 mmoL/L (3.5-5.1); Sodium 136 mmol/L (136-145)
[2020-07-27 15:27] LABS: Alanine Aminotransferase 21 U/L (12-78); Aspartate Amino Transferase 29 U/L (14-36); Blood Urea Nitrogen 22 mg/dl (7-17); Creatinine Clearance Estimated 86 mL/min (50-200); Estimated Glomerular Filt Rate 72 ml/min (>60); GFR (African American) 87 ML/MIN (>60)
[2020-07-27 15:28] LABS: Albumin Level 4.1 g/dl (3.5-5.0); Albumin/Globulin Ratio 1.2 (1.1-1.8); Alkaline Phosphatase 112 U/L (38-126); Anion Gap 12.4 mEq/L (5-15); Bilirubin,Total 0.3 mg/dl (0.2-1.3); Calcium 9.5 mg/dl (8.4-10.2); Carbon Dioxide 25 mmol/L (22.0-30.0); Globulin 3.5 g/dL (1.3-3.2); Glucose 389 mg/dl (74-100); Total Protein,Serum 7.6 g/dl (6.3-8.2)
[2020-07-27 15:41] LABS: Troponin I < 0.01 ng/ml (0.00-0.034)
[2020-07-27 15:47] LABS: Magnesium 1.8 mg/dl (1.6-2.3)
[2020-07-27 16:04] LABS: Triiodothryronine (T3) Uptake 33 % (23.5-40.5)
[2020-07-27 16:05] LABS: Free Thyroxine Index 2.9 ug/dL (5.93-13.13); T4 (Thyroxine) 8.8 ug/dl (5.53-11.0)
[2020-07-27 16:18] LABS: Thyroid Stimulating Hormone 2.13 uIU/mL (0.465-4.68)
--- NOTE | 2020-07-27 16:51 | PC.NURSE ---
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
--- NOTE | 2020-07-27 17:49 | PC.NURSE ---
REVIEWED MED LIST WITH PATIENT AT BEDSIDE TO RECONCILE
--- NOTE | 2020-07-27 17:57 | ECG_ITS ---
APPROVED REPORT Exam: Resting ECG HR:73 bpm ECG Measurements Heart Rate 73 AXES MA 150 P 14 QRSd 70 QRS 29 QT 396 T 33 QTc 436 Conclusion Normal sinus rhythm Normal ECG Electronically signed by : Michele Ruby, 07/29/2020 08:56:00
--- NOTE | 2020-07-27 18:15 | PC.NURSE ---
Cardizem gtt stopped at this time per MD requests, continuing to monitor.
--- NOTE | 2020-07-27 18:27 | PC.NURSE ---
KALPESH LOCKWOOD speaking with Dr. Albright.
== END 2020-07-27 19:05 | disposition home or self-care (01) ==
LOC: ER 17:07 → 2ND 18:01
PROVIDERS: Emergency Provider Emergency Medicine; PCP Physician Assistant
DX: I48.0 Paroxysmal atrial fibrillation (principal); U07.1 COVID-19; E11.65 Type 2 diabetes mellitus with hyperglycemia; I10 Essential (primary) hypertension; F41.8 Other specified anxiety disorders; K21.9 Gastro-esophageal reflux disease without esophagitis; J44.9 Chronic obstructive pulmonary disease, unspecified; I25.10 Atherosclerotic heart disease of native coronary artery without angina pectoris; E78.5 Hyperlipidemia, unspecified; Z79.899 Other long term (current) drug therapy
CPT/HCPCS: 71045; 80053; 83735; 84436; 84443; 84479; 84484; 85025; 93005; 96374; 99283

== ENCOUNTER → 2020-08-10 13:35 | Outpatient (CLI) | payer MEDICARE, BC, SELFPAY ==
[2020-08-10 14:12] LABS: Microalbumin < 6.000 mg/L (0-16.7)
== END ==
PROVIDERS: Visit Provider Physician Assistant
DX: E11.9 Type 2 diabetes mellitus without complications (principal); Z79.4 Long term (current) use of insulin
CPT/HCPCS: 82043

== ENCOUNTER → 2020-11-04 13:17 | Outpatient (CLI) | payer MEDICARE, BC, SELFPAY ==
[2020-11-04 13:43] LABS: Basophils # 0.1 K/mm3 (0-0.2); Basophils % 0.8 % (0.1-2.0); Eosinophils # 0.2 K/mm3 (0.0-0.4); Eosinophils % 2.3 % (0.1-12.0); Hematocrit 41.4 % (37.0-47.0); Hemoglobin 12.9 g/dL (12.2-16.2); Lymphocytes # 1.9 K/mm3 (0.7-4.5); Lymphocytes % 22.4 % (10-50); Mean Corpuscular HGB Conc 31.1 g/dL (31.8-35.4); Mean Corpuscular Hemoglobin 24.3 pg (27.0-31.2); Mean Corpuscular Volume 78.2 fl (81-99); Mean Platelet Volume 7.7 fl (7.4-10.4); Monocytes # 0.5 K/mm3 (0.1-1.0); Monocytes % 5.4 % (1.7-9.3); Neutrophils # 5.9 K/mm3 (1.8-7.8); Neutrophils % 69.1 % (37.0-80.0); Platelet Count 404 K/mm3 (142-424); Red Blood Count 5.29 M/mm3 (4.20-5.40); Red Cell Distribution Width 15.7 % (11.5-17.5); White Blood Count 8.5 K/mm3 (4.8-10.8)
[2020-11-04 13:46] LABS: Chloride 103 mmol/L (98-107); Sodium 141 mmol/L (136-145)
[2020-11-04 13:47] LABS: Potassium 4.5 mmoL/L (3.5-5.1)
[2020-11-04 13:49] LABS: Alanine Aminotransferase 28 U/L (12-78); Alkaline Phosphatase 121 U/L (38-126); Anion Gap 13.5 mEq/L (5-15); Aspartate Amino Transferase 29 U/L (14-36); Bilirubin,Total 0.5 mg/dl (0.2-1.3); Blood Urea Nitrogen 21 mg/dl (7-17); Carbon Dioxide 29 mmol/L (22.0-30.0); Cholesterol 238 mg/dl (140-200); Estimated Glomerular Filt Rate 72 ml/min (>60); GFR (African American) 87 ML/MIN (>60); Triglycerides 170 mg/dl (30-150); VLDL Cholesterol 34 mg/dL (0-40)
[2020-11-04 13:50] LABS: Albumin/Globulin Ratio 1.2 (1.1-1.8); Calcium 9.3 mg/dl (8.4-10.2); Chol/HDL Ratio 3.2 (1-3.5); Globulin 3.4 g/dL (1.3-3.2); Glucose 148 mg/dl (74-100); HDL Cholesterol 74 mg/dl (40-60); Total Protein,Serum 7.4 g/dl (6.3-8.2)
[2020-11-04 14:01] LABS: Direct LDL Cholesterol 132.06 mg/dL (100-129)
[2020-11-04 14:07] LABS: T4 (Thyroxine) 7.9 ug/dl (5.53-11.0)
[2020-11-04 14:12] LABS: Hemoglobin A1C 10.3 % (4.0-6.0)
[2020-11-04 14:21] LABS: Thyroid Stimulating Hormone 2.41 uIU/mL (0.465-4.68)
== END ==
PROVIDERS: Visit Provider Nurse Practitioner Family
DX: I48.91 Unspecified atrial fibrillation; E11.8 Type 2 diabetes mellitus with unspecified complications; I20.8 Other forms of angina pectoris; Z79.4 Long term (current) use of insulin
CPT/HCPCS: 80053; 80061; 83036; 84436; 84443; 85025

== ENCOUNTER → 2020-11-21 11:18 | Outpatient (CLI) | payer MEDICARE, BC, SELFPAY ==
[2020-11-21 11:50] LABS: Basophils # 0.1 K/mm3 (0-0.2); Basophils % 0.7 % (0.1-2.0); Eosinophils # 0.2 K/mm3 (0.0-0.4); Hematocrit 39.1 % (37.0-47.0); Hemoglobin 11.8 g/dL (12.2-16.2); Lymphocytes # 1.8 K/mm3 (0.7-4.5); Lymphocytes % 20.2 % (10-50); Mean Corpuscular HGB Conc 30.2 g/dL (31.8-35.4); Mean Corpuscular Hemoglobin 24.1 pg (27.0-31.2); Mean Corpuscular Volume 79.9 fl (81-99); Mean Platelet Volume 7.1 fl (7.4-10.4); Monocytes # 0.4 K/mm3 (0.1-1.0); Monocytes % 4.4 % (1.7-9.3); Neutrophils # 6.3 K/mm3 (1.8-7.8); Neutrophils % 72.6 % (37.0-80.0); Platelet Count 331 K/mm3 (142-424); Red Blood Count 4.89 M/mm3 (4.20-5.40); Red Cell Distribution Width 15.5 % (11.5-17.5); White Blood Count 8.7 K/mm3 (4.8-10.8)
[2020-11-21 12:27] LABS: Chloride 102 mmol/L (98-107)
[2020-11-21 12:28] LABS: Potassium 4.2 mmoL/L (3.5-5.1); Sodium 141 mmol/L (136-145)
[2020-11-21 12:30] LABS: Alanine Aminotransferase 17 U/L (12-78); Albumin/Globulin Ratio 1.3 (1.1-1.8); Alkaline Phosphatase 121 U/L (38-126); Anion Gap 15.2 mEq/L (5-15); Aspartate Amino Transferase 23 U/L (14-36); Bilirubin,Total 0.4 mg/dl (0.2-1.3); Blood Urea Nitrogen 24 mg/dl (7-17); Carbon Dioxide 28 mmol/L (22.0-30.0); Estimated Glomerular Filt Rate 62 ml/min (>60); GFR (African American) 76 ML/MIN (>60)
[2020-11-21 12:31] LABS: Calcium 9.3 mg/dl (8.4-10.2); Glucose 216 mg/dl (74-100)
[2020-11-21 12:38] LABS: Erythrocyte Sedimentation Rate 50 mm/hr (0-30)
[2020-11-22 05:14] LABS: RA Latex Turbid. <10.0 IU/mL (0.0-13.9)
[2020-11-22 15:21] LABS: C-Reactive Protein 5.4 mg/L (0-4)
[2020-11-22 23:45] LABS: Anti-Centromere B Antibodies <0.2 AI (0.0-0.9); Anti-DNA (DS) Ab Qn 2 IU/mL (0-9); Anti-Jo-1 <0.2 AI (0.0-0.9); Anti-Smith Antibody 0.2 AI (0.0-0.9); Antichromatin Antibodies <0.2 AI (0.0-0.9); Antiscleroderma-70 Antibodies <0.2 AI (0.0-0.9); RNP Antibodies <0.2 AI (0.0-0.9); Sjogren's Anti-SS-A <0.2 AI (0.0-0.9); Sjogren's Anti-SS-B <0.2 AI (0.0-0.9)
[2020-11-23 00:10] LABS: Anti-Cyclic Citrullinated Pept 5 units (0-19)
[2020-11-24 09:39] LABS: Lupus Reflex Interpretation Comment: (.); PTT-LA 31.5 sec (0.0-51.9); dRVVT 71.7 sec (0.0-47.0); dRVVT Confirm 1.7 ratio (0.8-1.2); dRVVT Mix 48.6 sec (0.0-40.4)
[2020-11-24 12:08] LABS: Iron 56 ug/dL (37-170)
[2020-11-24 12:18] LABS: Total Iron Binding Capacity 483 ug/dL (265-497)
== END ==
PROVIDERS: Visit Provider Physician Assistant
DX: M25.50 Pain in unspecified joint (principal); M79.643 Pain in unspecified hand; E11.8 Type 2 diabetes mellitus with unspecified complications; D50.9 Iron deficiency anemia, unspecified; Z79.4 Long term (current) use of insulin
CPT/HCPCS: 36415; 80053; 82728; 83540; 83550; 85025; 85613; 85651; 86140; 86200; 86225; 86235; 86431

== ENCOUNTER → 2021-01-10 09:35 | Outpatient (CLI) | payer MEDICARE, BC, SELFPAY | PROVIDERS: PCP Physician Assistant; Visit Provider Physician Assistant | DX: Z20.822 Contact with and (suspected) exposure to COVID-19 (principal) | CPT/HCPCS: U0003 ==

== ENCOUNTER → 2021-02-16 09:57 | Outpatient (CLI) | payer MEDICARE, SELFPAY ==
[2021-02-16 11:20] LABS: Alanine Aminotransferase 25 U/L (12-78); Albumin Level 3.7 g/dl (3.5-5.0); Alkaline Phosphatase 106 U/L (38-126); Aspartate Amino Transferase 26 U/L (14-36); Bilirubin,Direct 0.1 mg/dl (0.0-0.4); Bilirubin,Indirect 0.2 mg/dL (0.0-0.9); Bilirubin,Total 0.3 mg/dl (0.2-1.3); Bilirubin,Unconjugated 0.1 mg/dL (0.0-1.1); Chol/HDL Ratio 2.6 (1-3.5); Cholesterol 192 mg/dl (140-200); HDL Cholesterol 73 mg/dl (40-60); Total Protein,Serum 6.8 g/dl (6.3-8.2); Triglycerides 138 mg/dl (30-150); VLDL Cholesterol 28 mg/dL (0-40)
[2021-02-16 11:31] LABS: Direct LDL Cholesterol 92.59 mg/dL (100-129)
== END ==
PROVIDERS: Visit Provider Nurse Practitioner Family
DX: E78.5 Hyperlipidemia, unspecified (principal); R07.89 Other chest pain
CPT/HCPCS: 36415; 80061; 80076

== ENCOUNTER → 2021-06-07 10:46 | Outpatient (CLI) | payer MEDICARE, SELFPAY | PROVIDERS: Visit Provider Nurse Practitioner | DX: U07.1 COVID-19 (principal) | CPT/HCPCS: C9803; U0003; U0005 ==

== ENCOUNTER → 2021-06-29 16:44 | Outpatient (CLI) | payer MEDICARE, BC, SELFPAY ==
--- NOTE | 2021-06-29 16:51 | XR_ITS ---
PROCEDURE INFORMATION: Exam: XR Chest Exam date and time: 06/29/2021 4:51 PM Age: 66 years old Clinical indication: Shortness of breath; Additional info: Dyspnea post covid TECHNIQUE: Imaging protocol: XR of the chest. Views: 2 views. COMPARISON: CR XR CHEST PORTABLE 07/27/2020 2:46 PM FINDINGS: Lungs: Calcified granulomas. No consolidation. Pleural spaces: Unremarkable. No pleural effusion. No pneumothorax. Heart/Mediastinum: Borderline minimal cardiomegaly. Bones/joints: No acute findings. IMPRESSION: No acute findings.
== END ==
PROVIDERS: PCP Physician Assistant; Visit Provider Physician Assistant
DX: R06.00 Dyspnea, unspecified (principal)
CPT/HCPCS: 71046

== ENCOUNTER → 2021-07-05 11:15 | Outpatient (CLI) | payer MEDICARE, SELFPAY ==
[2021-07-05 17:31] LABS: Anion Gap 11.4 mEq/L (5-15); Blood Urea Nitrogen 33 mg/dl (7-17); Calcium 8.9 mg/dl (8.4-10.2); Carbon Dioxide 31 mmol/L (22.0-30.0); Chloride 100 mmol/L (98-107); Estimated Glomerular Filt Rate 49 ml/min (>60); GFR (African American) 60 ML/MIN (>60); Glucose 188 mg/dl (74-100); Potassium 4.4 mmoL/L (3.5-5.1); Sodium 138 mmol/L (136-145)
== END ==
PROVIDERS: PCP Physician Assistant; Visit Provider Nurse Practitioner Family
DX: E11.42 Type 2 diabetes mellitus with diabetic polyneuropathy (principal); E66.01 Morbid (severe) obesity due to excess calories; E78.2 Mixed hyperlipidemia; F41.9 Anxiety disorder, unspecified; I10 Essential (primary) hypertension; I25.10 Atherosclerotic heart disease of native coronary artery without angina pectoris; I48.0 Paroxysmal atrial fibrillation; J44.9 Chronic obstructive pulmonary disease, unspecified; K21.9 Gastro-esophageal reflux disease without esophagitis; K44.9 Diaphragmatic hernia without obstruction or gangrene; R06.02 Shortness of breath; R42 Dizziness and giddiness; Z79.4 Long term (current) use of insulin
CPT/HCPCS: 36415; 80048

== ENCOUNTER → 2021-07-10 06:16 | Outpatient (CLI) | payer MEDICARE, BC, SELFPAY ==
--- NOTE | 2021-07-10 06:17 | NM_ITS ---
APPROVED REPORT Exam: Nuclear Stress Test Indication: Chest pain, SOB, HTN, CAD, CHF, DM, High cholesterol, Family history Patient Location: Outpatient Stress Tech: Margy Montejo [place] Tech:Екатерина Anthony, ARRT, RT (R)(N) Ht: 5 ft 5 in Wt: 260 lbs Bra Size: 44C HR: 66 bpm BP: 150/64 mmHg BSA: 2.21 m2 BMI: 43.2 History: Chest pain, SOB, HTN, CAD, CHF, DM, High cholesterol, Family history Procedure: Patient received a 0.4 mg of intravenous Lexiscan, resting heart rate 66 bpm, resting blood pressure 150/64 mmHg, with Lexiscan maximum heart rate achived was 80 bpm which is Less than 85 % of the maximum predicted heart rate and blood pressure was 143/72 mmHg. With Lexiscan, patient denied any complaint of chest pain. Electrocardiogram Resting electrocardiogram shows sinus rhythm, with Lexiscan there is less than 1.[address] segment depression noted from the baseline EKG. The EKG portion of the Lexiscan is nondiagnostic Cardiac Stress and Resting SPECT Images: Cardiac Stress and Resting SPECT images were obtained using technetium 99m Myoview 31.5 mCi stress and 10.44 mCi at rest. Gated SPECT for analysis of segmental wall motion and calculation of the ejection fraction also done. Prone images were also obtained. Cardiac stress and rest SPECT images show uniform myocardial activity without segmental perfusion abnormality, computer derived ejection fraction is 66% with no regional wall motion abnormality, right ventricle is normal size and contractility. Conclusion: 1. The EKG portion of the Lexiscan Myoview is nondiagnostic. 2. No scintigraphic evidence of reversible ischemia seen, compared to ejection fraction 66% with no regional wall motion abnormality, right ventricle is normal size and contractility. 3. Normal Lexiscan Myoview study. Electronically signed by : Jose Roberto Copeland MD 07/10/2021 12:49:57
--- NOTE | 2021-07-10 06:17 | CA_ITS ---
APPROVED REPORT EXAM: Comprehensive 2D, Doppler, and color-flow Echocardiogram Cadd Drafter: Tania Shin, RCS, RVS Ht: 5 ft 5 in Wt: 259lbs BSA: 2.21 BP: 125/51 mmHg Indications: SOA,AFIB, S/p Covid 05/2020 & 05/2021, LV Diastolic dysfunction, Ex-smoker,HTN, DM, HLD, Obesity 2D Dimensions IVSd 1.04 cm LVEF (Visual) 73.10 % PWd 0.76 cm LA Volume 76.20 mL LVDd 4.59 cm LA Volume Index 34.983857 mL/m2 (M/F) 16-34 LVDs 2.66 cm LVOT 2.00 cm (M/F) 1.5-2.5 M-Mode Dimensions RVDd 1.73 cm (0.9-2.6) LA Diam 4.08 cm (1.9-4.0) LVDd 4.78 cm (3.5-5.7) Ao Diam 2.96 cm (2.0-3.7) LVDs 3.57 cm (3.5-5.7) IVSd 1.24 cm (0.6-1.1) PWd 1.08 cm (0.6-1.1) EF (Teich) 50.00% EPSs 0.81 cm FS 25.30% EDV (Teich) 106.50 mL TAPSE 2.47 (<1.7) ESV (Teich) 53.30 mL LV Diastology E Decel Time 263.00 (160-240 msec) E/A Ratio 1.18 MED E' 6.20 (< 7 cm/sec) MED A' 7.90 cm/s E'/MED E' Ratio 20.60 (>14) LAT E' 6.60 (<10 cm/sec) LAT A' 7.20 cm/s E/LAT E' Ratio 19.35 (>14) Aortic Valve LVOT Max 144.00 (70-110 cm/s) LVOT VTI 32.22 cm AoV Peak Maurizio. 211.00 (50-130 cm/s) AO Peak GR. 17.90 mmHg AO Mean GR. 9.90 (<5 mmHg) AO VTI 48.77 (18-25 cm) NAYAN (VTI) 2.08 (2.5-4.5 cm2) Mitral Valve MV A Velocity 109.00 (40-130 cm/s) E/A Ratio 1.18 MV Decel. Time 263.00 (160-240 ms) MV Mean Gr. 3.90 (<2mmHg) MV PHT 60.00 ms Pulmonary Valve PV Peak Velocity 110.00 (50-150 cm/s) LA End VMAX 175.00 cm/s Tricuspid Valve TR P. Velocity 254.00 cm/s RAP Estimate 10.00 mmHg RVSP 35.70 mmHg Left Ventricle Left atrium is moderately enlarged, left ventricle is normal size, mild concentric left ventricular hypertrophy, visually estimated ejection fraction 55% with no regional wall motion abnormality, grade 2 diastolic dysfunction seen with tissue Doppler evidence of raise left atrial pressure. Right Ventricle Right atrium and right ventricle are normal size and contractility. Aortic Valve Aortic valve is thickened and calcified with mildly increased aortic outflow velocity does not represent any significant aortic stenosis, there is no aortic insufficiency. Mitral Valve Mitral valve has some dense mitral annular calcification which extends into the posterior mitral leaflet, there is no mitral inflow obstruction, there is moderate mitral regurgitation. Tricuspid Valve Tricuspid valve grossly normal, there is mild tricuspid regurgitation, calculated right ventricular systolic pressure is 34 mmHg. Pulmonic Valve Pulmonic valve is poorly visualized. Great Vessels Aortic root is normal size. Inferior vena cava is poorly visualized. Pericardium No significant pericardial effusion noted. Conclusion 1. Moderately enlarged left atrium, normal left ventricular size, mild concentric left ventricular hypertrophy, visually estimated ejection fraction 55% with no regional wall motion abnormality, grade 2 diastolic dysfunction seen with tissue Doppler evidence of raise left atrial pressure. 2. Thickened and calcified aortic valve without significant aortic stenosis or aortic insufficiency. 3. Moderate mitral and mild tricuspid regurgitation. Calculated right ventricular systolic pressure 34 mmHg. 4. Inferior vena cava is poorly visualized. 5. No significant pericardial effusion noted. Electronically signed by : Jose Roberto Copeland MD 07/10/2021 13:39:31
--- NOTE | 2021-07-10 06:17 | CA_ITS ---
APPROVED REPORT Exam: Pharmacologic Technologist: Margy Bravo, Ht: 5 ft 5 in Wt: 259 lbs BSA: 2.21 m2 HR: 66 bpm BP: 150/64 mmHg Medical History Medications: Aspirin,,,,, Atenolol,,,,, Flecainide,,,,, Losartan,,,,, Buspirone,,,,, Naproxen,,,,, CloPIdogrel,,,,, Famotidine,,,,, FeNOfibrate,,,,, NovOLOG,,,,, Dexilant,,,,, Sertraline,,,,, Stress Test Details Test: LEXISCAN HR Resting HR: 67 bpm Max Heart Rate (APMHR): 152.874222 bpm Max HR Achieved: 81 bpm Target HR (85% APMHR): 129.355048 bpm % of APMHR: 53.29 Recovery HR: 74 bpm BP Resting BP: 150/64 mmHg Max BP: 155/65 mmHg Recovery BP: 144.0/74.0 mmHg ECG Resting ECG: NSR Clinical Reason for Termination: Completed Protocol Exercise duration: 04:01 min Highest Stage Achieved: Exercise capacity: 1.0 METs Stress ECG Conclusion Symptoms: SOA/ Airway was obstructed a little bit Arrhythmias/Ectopy: None ST-T Changes: <1.5mm ST Segment changes Conclusion: Non-Diagnostic Stress. Electronically signed by : Jose Roberto Copeland MD 07/10/2021 12:43:53
--- NOTE | 2021-07-10 08:25 | HMH.ITSHM ---
Current Home Medications as stated by this patient Marybel Shin or specialty sales representative. []ASA ATENOLOL FAMOTIDINE FUROSEMIDE LOSARTAN ZOLOFT FENOFIBRATE BUPROPION EZETIMIBE BUSPIRONE DEXILANTE XARELTO ROBINIROLE FLECAINIDE CLOPIDOGREL INSULIN TRULICITY
== END ==
PROVIDERS: PCP Physician Assistant; Visit Provider Nurse Practitioner Family
DX: E11.42 Type 2 diabetes mellitus with diabetic polyneuropathy (principal); E66.01 Morbid (severe) obesity due to excess calories; E78.2 Mixed hyperlipidemia; F41.9 Anxiety disorder, unspecified; I10 Essential (primary) hypertension; I25.10 Atherosclerotic heart disease of native coronary artery without angina pectoris; I48.0 Paroxysmal atrial fibrillation; J44.9 Chronic obstructive pulmonary disease, unspecified; K21.9 Gastro-esophageal reflux disease without esophagitis; K44.9 Diaphragmatic hernia without obstruction or gangrene; R06.02 Shortness of breath; R42 Dizziness and giddiness; Z68.41 Body mass index [BMI] 40.0-44.9, adult; Z79.4 Long term (current) use of insulin
CPT/HCPCS: 78452; 93017; 93306; A9502; J2785

== ENCOUNTER → 2021-07-13 14:09 | Outpatient (CLI) | payer MEDICARE, BC, SELFPAY ==
[2021-07-13 16:07] LABS: Anion Gap 12.4 mEq/L (5-15); Blood Urea Nitrogen 28 mg/dl (7-17); Calcium 9.3 mg/dl (8.4-10.2); Carbon Dioxide 33 mmol/L (22.0-30.0); Chloride 96 mmol/L (98-107); Estimated Glomerular Filt Rate 55 ml/min (>60); GFR (African American) 67 ML/MIN (>60); Glucose 238 mg/dl (74-100); Potassium 4.4 mmoL/L (3.5-5.1); Sodium 137 mmol/L (136-145)
== END ==
PROVIDERS: Visit Provider Nurse Practitioner Family
DX: E11.42 Type 2 diabetes mellitus with diabetic polyneuropathy (principal); E66.01 Morbid (severe) obesity due to excess calories; E78.2 Mixed hyperlipidemia; I10 Essential (primary) hypertension; I25.10 Atherosclerotic heart disease of native coronary artery without angina pectoris; I34.0 Nonrheumatic mitral (valve) insufficiency; I48.0 Paroxysmal atrial fibrillation; J44.9 Chronic obstructive pulmonary disease, unspecified; K21.9 Gastro-esophageal reflux disease without esophagitis; R06.02 Shortness of breath; Z68.41 Body mass index [BMI] 40.0-44.9, adult; Z79.4 Long term (current) use of insulin; Z87.891 Personal history of nicotine dependence
CPT/HCPCS: 36415; 80048

== ENCOUNTER → 2021-08-02 14:17 | Outpatient (CLI) | payer MEDICARE, BC, SELFPAY ==
--- NOTE | 2021-08-02 14:18 | CT_ITS ---
FINAL REPORT TECHNIQUE: Axial images were obtained from the lung apex to the mid abdomen by computed tomography. Coronal reformatted images were obtained. This study was performed with techniques to keep radiation doses as low as reasonably achievable, (ALARA). Individualized dose reduction techniques using automated exposure control or adjustment of mA and/or kV according to the patient''s size were employed. CLINICAL HISTORY: hemoptysis, s/p COVID, COPD FINDINGS: There is no axillary adenopathy. There is no hilar or mediastinal adenopathy. Heart size is normal. There is moderate to severe coronary artery calcification. There is no pericardial or pleural effusion. Limited images of the upper abdomen reveals postoperative changes from cholecystectomy. On the lung window images there are several calcified granulomas. There is mild diffuse bronchial wall thickening consistent with bronchitis. There is mild bibasilar atelectasis or scarring. IMPRESSION: Mild diffuse bronchial wall thickening consistent with bronchitis. Reviewed, Interpreted and Dictated by Don Ortiz III, MD Transcribed by Elis Chen Authenticated by Don Ortiz III, MD on 08/02/2021 03:29:[address] [facility]
[2021-08-02 15:25] VITALS: PULSE 66; PULSE 67
== END ==
PROVIDERS: PCP Physician Assistant; Visit Provider Physician Assistant
DX: J44.9 Chronic obstructive pulmonary disease, unspecified (principal); R04.2 Hemoptysis; R06.00 Dyspnea, unspecified; R06.02 Shortness of breath; U09.9 Post COVID-19 condition, unspecified
CPT/HCPCS: 71250; 94060; 94618; 94640; 94727; 94729

== ENCOUNTER → 2021-08-29 10:57 | Outpatient (CLI) | payer MEDICARE, BC, SELFPAY ==
--- NOTE | 2021-08-29 11:07 | XR_ITS ---
FINAL REPORT CLINICAL HISTORY: bilateral hand pain, NO INJURY FINDINGS: LEFT HAND Three views demonstrate no acute fracture. There is no dislocation. The visualized joint spaces are normally aligned. The soft tissues are unremarkable. IMPRESSION: No acute bony abnormality. Reviewed, Interpreted and Dictated by Matthew Silva MD Transcribed by Elis Chen Authenticated by Matthew Silva MD on 08/29/2021 02:04:30 PM [facility]
--- NOTE | 2021-08-29 11:07 | XR_ITS ---
FINAL REPORT CLINICAL HISTORY: bilateral hand pain, NO INJURY FINDINGS: RIGHT HAND Three views demonstrate no acute fracture. There is no dislocation. The visualized joint spaces are normally aligned. The soft tissues are unremarkable. IMPRESSION: No acute bony abnormality. Reviewed, Interpreted and Dictated by Matthew Silva MD Transcribed by Elis Chen Authenticated by Matthew Silva MD on 08/29/2021 02:04:27 PM [facility]
[2021-08-29 12:26] LABS: Basophils # 0.1 K/mm3 (0-0.2); Basophils % 0.9 % (0.1-2.0); Eosinophils # 0.2 K/mm3 (0.0-0.4); Eosinophils % 2.3 % (0.1-12.0); Hematocrit 36.8 % (37.0-47.0); Hemoglobin 11.4 g/dL (12.2-16.2); Lymphocytes # 2.1 K/mm3 (0.7-4.5); Lymphocytes % 22.4 % (10-50); Mean Corpuscular HGB Conc 31.1 g/dL (31.8-35.4); Mean Corpuscular Hemoglobin 24.2 pg (27.0-31.2); Mean Corpuscular Volume 77.8 fl (81-99); Mean Platelet Volume 8.1 fl (7.4-10.4); Monocytes # 0.5 K/mm3 (0.1-1.0); Monocytes % 5.7 % (1.7-9.3); Neutrophils # 6.5 K/mm3 (1.8-7.8); Neutrophils % 68.7 % (37.0-80.0); Platelet Count 427 K/mm3 (142-424); Red Blood Count 4.72 M/mm3 (4.20-5.40); Red Cell Distribution Width 15.9 % (11.5-17.5); White Blood Count 9.4 K/mm3 (4.8-10.8)
[2021-08-29 13:17] LABS: Erythrocyte Sedimentation Rate 46 mm/hr (0-30)
[2021-08-29 17:55] LABS: Alanine Aminotransferase 22 U/L (12-78); Albumin Level 3.9 g/dl (3.5-5.0); Albumin/Globulin Ratio 1.3 (1.1-1.8); Alkaline Phosphatase 100 U/L (38-126); Anion Gap 13.1 mEq/L (5-15); Aspartate Amino Transferase 23 U/L (14-36); Bilirubin,Total 0.3 mg/dl (0.2-1.3); Blood Urea Nitrogen 24 mg/dl (7-17); Calcium 8.9 mg/dl (8.4-10.2); Carbon Dioxide 31 mmol/L (22.0-30.0); Chloride 99 mmol/L (98-107); Estimated Glomerular Filt Rate 49 ml/min (>60); GFR (African American) 60 ML/MIN (>60); Glucose 196 mg/dl (74-100); Potassium 4.1 mmoL/L (3.5-5.1); Sodium 139 mmol/L (136-145); Total Protein,Serum 6.9 g/dl (6.3-8.2)
[2021-08-29 18:00] LABS: C-Reactive Protein 9.3 mg/L (0-4)
[2021-08-30 17:10] LABS: Hemoglobin A1C 11.4 % (4.0-6.0)
== END ==
PROVIDERS: PCP Physician Assistant; Visit Provider Physician Assistant
DX: M79.641 Pain in right hand (principal); M79.642 Pain in left hand; I34.0 Nonrheumatic mitral (valve) insufficiency; E11.9 Type 2 diabetes mellitus without complications; Z79.4 Long term (current) use of insulin
CPT/HCPCS: 36415; 73130; 80053; 83036; 85025; 85651; 86140

== ENCOUNTER 2021-09-10 03:32 | Observation (INO) | payer MEDICARE, BC, SELFPAY ==
[2021-09-10] VITALS (24 sets, daily range): BP systolic 101–139; BP diastolic 41–72; PULSE 40–80; RESP 13–21; TEMP 36.6–36.9; O2SAT 94–98; BMI 43.2; BMI 43.3; BMI 42.6
--- NOTE | 2021-09-10 03:39 | ECG_ITS ---
APPROVED REPORT Exam: Resting ECG HR:42 bpm ECG Measurements Heart Rate 42 AXES NM 239 P 71 QRSd 96 QRS 88 QT 491 T 64 QTc 435 Conclusion SINUS BRADYCARDIA WITH FIRST DEGREE AV BLOCK ABNORMAL ECG UNCONFIRMED REPORT Electronically signed by : Michele Ruby MD 09/10/2021 15:08:24
[2021-09-10 03:51] LABS: POC Glucose,Bedside 491 (70-110)
--- NOTE | 2021-09-10 03:54 | CT_ITS ---
PROCEDURE INFORMATION: Exam: CT Head Without Contrast Exam date and time: 09/10/2021 4:14 AM Age: 66 years old Clinical indication: Pain; Headache not specified TECHNIQUE: Imaging protocol: Computed tomography of the head without contrast. Radiation optimization: All CT scans at this facility use at least one of these dose optimization techniques: automated exposure control; mA and/or kV adjustment per patient size (includes targeted exams where dose is matched to clinical indication); or iterative reconstruction. COMPARISON: [facility] CT HEAD W/O CONTRAST 11/25/2015 11:48 AM FINDINGS: Brain: Mild atrophy. No intracranial hemorrhage. No mass. Few scattered foci of decreased attenuation within periventricular/subcortical white matter. Probable chronic lacunar infarct about RIGHT basal ganglia. Probable infarct within RIGHT occipital region, likely late subacute to chronic. No definite edema. Cerebral ventricles: No hydrocephalus. Paranasal sinuses: Scattered minimal mucosal thickening. Mastoid air cells: No significant effusion. Orbital cavities: Unremarkable as visualized. Vasculature: Mild atherosclerotic disease of intracranial arteries. Bones/joints: No acute fracture. Soft tissues: Unremarkable. IMPRESSION: Probable chronic microvascular ischemic changes. If symptoms persist, consider MRI.
--- NOTE | 2021-09-10 03:57 | XR_ITS ---
PROCEDURE INFORMATION: Exam: XR Chest Exam date and time: 09/10/2021 4:05 AM Age: 66 years old Clinical indication: Sternal or substernal pain; Additional info: Chest pain TECHNIQUE: Imaging protocol: XR of the chest. Views: 2 views. COMPARISON: CT CHEST WO CON 08/02/2021 2:23 PM FINDINGS: Lungs: No definite consolidation. RLL calcified granuloma. Pleural spaces: No significant pleural effusion. No pneumothorax. Heart/Mediastinum: Mild cardiomegaly. Valvular calcifications. Atherosclerosis of thoracic aorta. Bones/joints: No displaced fracture. Soft tissues: Unremarkable. Intraperitoneal space: Surgical clips within RIGHT upper quadrant. IMPRESSION: Mild cardiomegaly.
[2021-09-10 04:17] LABS: Basophils # 0.2 K/mm3 (0-0.2); Basophils % 1.4 % (0.1-2.0); Eosinophils # 0.2 K/mm3 (0.0-0.4); Eosinophils % 1.5 % (0.1-12.0); Hematocrit 35.1 % (37.0-47.0); Lymphocytes % 18.3 % (10-50); Mean Corpuscular HGB Conc 31.4 g/dL (31.8-35.4); Mean Corpuscular Hemoglobin 24.6 pg (27.0-31.2); Mean Corpuscular Volume 78.6 fl (81-99); Monocytes # 0.6 K/mm3 (0.1-1.0); Monocytes % 4.9 % (1.7-9.3); Neutrophils # 8.2 K/mm3 (1.8-7.8); Neutrophils % 73.9 % (37.0-80.0); Platelet Count 376 K/mm3 (142-424); Red Blood Count 4.47 M/mm3 (4.20-5.40); Red Cell Distribution Width 16.3 % (11.5-17.5); White Blood Count 11.1 K/mm3 (4.8-10.8)
[2021-09-10 04:25] LABS: Acetone, Serum (Rapid) None Detected (None Detect)
[2021-09-10 04:29] LABS: Alanine Aminotransferase 23 U/L (12-78); Albumin Level 3.5 g/dl (3.5-5.0); Albumin/Globulin Ratio 1.1 (1.1-1.8); Alkaline Phosphatase 107 U/L (38-126); Aspartate Amino Transferase 22 U/L (14-36); Bilirubin,Total 0.4 mg/dl (0.2-1.3); Blood Urea Nitrogen 28 mg/dl (7-17); Calcium 8.6 mg/dl (8.4-10.2); Carbon Dioxide 28 mmol/L (22.0-30.0); Chloride 99 mmol/L (98-107); Creatinine Clearance Estimated 44 mL/min (50-200); Estimated Glomerular Filt Rate 49 ml/min (>60); GFR (African American) 60 ML/MIN (>60); Globulin 3.1 g/dL (1.3-3.2); Sodium 134 mmol/L (136-145); Total Protein,Serum 6.6 g/dl (6.3-8.2)
[2021-09-10 04:30] LABS: INR 0.98 (0.9-1.1); Prothrombin Time 11.1 seconds (10.1-12.5)
[2021-09-10 04:35] LABS: C-Reactive Protein 53.4 mg/L (0-4)
[2021-09-10 04:36] LABS: Glucose 474 mg/dl (74-100)
[2021-09-10 04:41] LABS: NT Pro Brain Natriuretic Pep. 735 pg/mL (0-125)
[2021-09-10 04:47] LABS: Erythrocyte Sedimentation Rate 60 mm/hr (0-30)
[2021-09-10 04:47] LABS: Coronavirus 19, PCR Not Detected (NotDetected); Influenza A, PCR Not Detected (NotDetected); Influenza B, PCR Not Detected (NotDetected)
[2021-09-10 04:47] LABS: Microscopic, Urine URINE MICROSCOPIC (MICROSCOPIC)
[2021-09-10 04:48] LABS: Procalcitonin 0.113 ng/mL (0.0-2.0)
[2021-09-10 04:58] LABS: Troponin I 0.03 ng/ml (0.00-0.034)
--- NOTE | 2021-09-10 05:00 | PC.NURSE ---
NO CHANGES IN ASSMNT. NIH REMAINS 0- GCS- 15. PT DENIES CHEST PAIN. WCM.
[2021-09-10 05:04] LABS: Appearance,Urine CLEAR (Clear); Bilirubin,Urine Negative (Negative); Blood, Urine Negative (Negative); Color,Urine YELLOW (Yellow); Glucose,Urine (UA) 3+ (Negative); Ketones,Urine Negative (Negative); Leukocyte Esterase,Urine Negative (Negative); Nitrate,Urine Negative (Negative); Protein,Urine Negative (Negative); Urobilinogen,Urine 0.2 EU/dl (0.2)
[2021-09-10 05:09] LABS: WBC,Urine 20-50 #/hpf (0-3)
--- NOTE | 2021-09-10 05:54 | HMH.EDHA ---
ED Disposition Clinical Impression: S/P coronary artery stent placement, Renal insufficiency, Multiple lacunar infarcts UTI (urinary tract infection) Qualifiers: Urinary tract infection type: site unspecified Hematuria presence: without hematuria Qualified Code(s): N39.0 - Urinary tract infection, site not specified Atrial fibrillation Qualifiers: Atrial fibrillation type: persistent (not longstanding) Qualified Code(s): I48.19 - Other persistent atrial fibrillation Obesity Qualifiers: Obesity type: due to excess calories Obesity classification: adult class 3 (BMI >= 40) Serious obesity comorbidity presence: with serious comorbidity Body mass index: BMI 40.0-44.9 Qualified Code(s): E66.01 - Morbid (severe) obesity due to excess calories; Z68.41 - Body mass index [BMI] 40.0-44.9, adult CAD (coronary artery disease) Qualifiers: Coronary Disease-Associated Artery/Lesion type: cantwell artery [place] vs. transplanted heart: cantwell heart Associated angina: unspecified whether angina present Qualified Code(s): I25.10 - Atherosclerotic heart disease of cantwell coronary artery without angina pectoris Diabetes mellitus Qualifiers: Diabetes mellitus type: type 1 Diabetes mellitus complication status: with other specified complication Qualified Code(s): E10.69 - Type 1 diabetes mellitus with other specified complication Cardiac arrhythmia Qualifiers: Arrhythmia type: other cardiac arrhythmia Qualified Code(s): I49.8 - Other specified cardiac arrhythmias Disposition: Admitted As Inpatient Condition on Discharge: Fair Referrals: Reva Lou PA [Primary Care Provider] - - Critical Care Critical Care Time: No Attestation: On 09/10/21, the high probability of a clinically significant, sudden or life threatening deterioration of the following system(s) required my full and direct attention, intervention and personal management. The time I documented below is in addition to time spent performing reported procedures but includes the following listed in this critical care notation. Medical Decision Making - Medical Records Medical records reviewed: Yes: I reviewed the patient's medical records. - Marco A Inquiry Pt receiving controlled substance: No Vital Signs: 09/10/21 03:33 09/10/21 04:27 09/10/21 04:30 Temperature 98.1 F Temperature Source Oral Pulse Rate 51 L Pulse Rate [Left Radial] 48 L Respiratory Rate 17 Blood Pressure 101/42 L Blood Pressure [Orthostatic Lying] 102/44 L Blood Pressure [Orthostatic Sitting] 112/44 L Blood Pressure [Orthostatic Standing] 101/42 L Blood Pressure [Right Arm] 132/68 Blood Pressure Mean Blood Pressure Mean [Right Arm] 89 Blood Pressure Source [Right Arm] Manual Cuff/ Auscultation Blood Pressure Position [Right Arm] Sitting 02 Sat by Pulse Oximetry 98 95 Oxygen Delivery Method Room Air Room Air 09/10/21 05:03 09/10/21 05:31 Temperature Temperature Source Pulse Rate 40 L 42 L Pulse Rate [Left Radial] Respiratory Rate 15 15 Blood Pressure 106/41 L 105/56 L Blood Pressure [Orthostatic Lying] Blood Pressure [Orthostatic Sitting] Blood Pressure [Orthostatic Standing] Blood Pressure [Right Arm] Blood Pressure Mean 62 70 Blood Pressure Mean [Right Arm] Blood Pressure Source [Right Arm] Blood Pressure Position [Right Arm] 02 Sat by Pulse Oximetry 94 L 94 L Oxygen Delivery Method - Lab Data Lab results reviewed: Yes: I reviewed the patient's lab results. Lab Results 09/10/21 03:43: POC Glucose 491 H* 09/10/21 04:09: Troponin I 0.03, Acetone Level None detected 09/10/21 04:09: WBC 11.1 H, RBC 4.47, Hgb 11.0 L, Hct 35.1 L, MCV 78.6 L, MCH 24.6 L, MCHC 31.4 L, RDW 16.3, Plt Count 376, MPV 8.0, Neut % (Auto) 73.9, Lymph % (Auto) 18.3, [place] % (Auto) 4.9, Eos % (Auto) 1.5, Baso % (Auto) 1.4, Neut # (Auto) 8.2 H, Lymph # (Auto) 2.0, [place] # (Auto) 0.6, Eos # (Auto) 0.2, Baso # (Auto) 0.2 09/10/21 04:09: Sodium 134 L, [place]
[2021-09-10 06:32] LABS: POC Glucose,Bedside 385 (70-110)
[2021-09-10 07:03] LABS: Troponin I 0.03 ng/ml (0.00-0.034)
[2021-09-10 07:30] LABS: Free T4 (Free Thyroxine) 1.36 ng/dl (0.78-2.19)
[2021-09-10 07:43] LABS: Thyroid Stimulating Hormone 4.34 uIU/mL (0.465-4.68)
--- NOTE | 2021-09-10 07:44 | PC.NURSE ---
Notified Emi of admission
--- NOTE | 2021-09-10 07:46 | PC.NURSE ---
Notified admissions that patient will be admitted to a pena bed at this time; no open beds available
--- NOTE | 2021-09-10 09:00 | PC.NURSE ---
PT RESTING OFFERS NO C/O AT PRESENT. UPDATED ON PLAN OF CARE
--- NOTE | 2021-09-10 09:40 | HMH.HP ---
*Admission Date: 09/10/21 *Chief complaint: low bp /pulse *History of present illness: this patient presented to the ed with low bp and pulse and has known cardiac disease and diabetes - pt with slight fever and not feeling well also and was noted in the ed with low hr and has uti- pt was admitted after card consult for eval and possible pacemaker - pt also with chest pain and known cad - [facility] History I have reviewed the patient's past medical history: Yes Medical History: Reports:: Anxiety, Atrial Fibrillation, Congestive Heart Failure, Chronic Obstructive Pulmonary Disease (COPD), Coronary Artery Disease, Depression, Diabetes Mellitus Type 2, Gastroesophageal Reflux Disease(GERD), Hyperlipidemia, Hypertension, Lung Disease, Transient Ischemic Attacks (TIA) Denies:: Cancer, Diabetes Mellitus Type 1, Internal Pacemaker, MRSA, Seizures *Have you ever received a pneumonia vaccine?: No *Have you received a flu vaccine this season?: Yes Other Medical History: Reports: Arthritis. Denies: Blood Transfusion Reaction, Cataracts, Glaucoma, Hypothyroidism, Thyroid Disease Laterality Cases: Left: Other Other Surgeries: Yes: Cardiac Catheterization, Cardiac Surgery, Cholecystectomy, Colonoscopy, Coronary Stent, EGD, Hysterectomy-Total, Other. No: Pacemaker Amputation: No Fractures: No - *Social History Smoking Status: Former smoker Tobacco Type: cigarettes # Packs/Day (cigarettes): 1 #Yrs smoked (if former smoker): 5 Alcohol Intake: never Alcohol Intake Frequency:: other Substance Use Type: denies use *Occupational Status:: unemployed Housing: house Household Members: children *Travel in the last 8 weeks: None - Psychiatric History Pschychiatric History:: Reports:: Anxiety, Depression Family Hx:: No significant family history Review of Systems - Review of Systems Review of systems:: pertinent systems reviewed and negative unless documented below - Constitutional Reports weakness - Eyes Denies change in vision - ENT Reports headache(s), Denies sore throat - *Cardiovascular Reports chest pain, Reports shortness of breath, Reports slow heart rate - *Respiratory Denies cough - *Gastrointestinal Denies abdominal pain - *Genitourinary Denies blood in urine - *Musculoskeletal Reports joint pain - Integumentary/Breasts Denies rash - *Neurologic Denies seizure-like activity - Psychiatric Denies anxiety Meds Home Medications Medication Instructions Recorded Confirmed Type Aspirin [Aspirin 81mg EC Tab] 81 mg PO DAILY 05/20/20 09/10/21 History fenofibrate 160 mg tablet 160 mg PO DAILY #90 tab 11/07/20 09/10/21 Rx albuterol sulfate 1.25 mg/3 mL 1.25 mg INHALATION QID PRN #90 ml 08/21/21 09/10/21 Rx solution for nebulization budesonide-formoterol HFA 80 1 inh INHALATION QID PRN 90 Days 08/23/21 09/10/21 Rx mcg-4.5 mcg/actuation aerosol #10.2 g inhaler furosemide 40 mg tablet 40 mg PO DAILY tab 08/29/21 09/10/21 History Azelastine HCl [Azelastine Nasal 2 spray INTRANASAL BID 09/10/21 09/10/21 History Novelty 30mL Bottle] Blood Sugar Diagnostic [OneTouch See Rx Instructions .ROUTE 09/10/21 09/10/21 History Ultra Test] DIRECTED Buspirone HCl [Buspirone 30mg 30 mg PO BID 09/10/21 09/10/21 History Tablets] Cetirizine HCl 10 mg PO DAILY 09/10/21 09/10/21 History Clopidogrel Bisulfate [Plavix] 75 mg PO DAILY 09/10/21 09/10/21 History Dexlansoprazole [Dexilant] 60 mg PO DAILY 09/10/21 09/10/21 History Ezetimibe 10 mg PO DAILY 09/10/21 09/10/21 History Flecainide Acetate 100 mg PO BID 09/10/21 09/10/21 History Fluticasone Propionate 2 spray INTRANASAL DAILY 09/10/21 09/10/21 History Furosemide [Furosemide 80mg Tab] 80 mg PO DAILY 09/10/21 09/10/21 History Insulin Aspart Prot/Insuln Asp 13 unit SQ BID 09/10/21 09/10/21 History [Insulin Aspart Pro Cry56-86 Pn] Insulin Glargine/Lixisenatide 30 unit SQ QAM 09/10/21 09/10/21 History [Soliqua 100/33] Lancets [Onetouch Delica Safety See Rx Instr
[2021-09-10 10:42] LABS: Troponin I 0.03 ng/ml (0.00-0.034)
--- NOTE | 2021-09-10 11:00 | PC.NURSE ---
PT OFFERS NO C/O AT PRESENT
--- NOTE | 2021-09-10 12:05 | PC.NURSE ---
PT GIVEN LUNCH TRAY
--- NOTE | 2021-09-10 12:35 | PC.NURSE ---
PT UP TO CHAIR. WITH ASSIST OF ONE
--- NOTE | 2021-09-10 13:34 | PC.NURSE ---
REPORT CALLED TO FLOOR
--- NOTE | 2021-09-10 13:34 | PC.NURSE ---
Got report from Angelica Pérez RN
[2021-09-11] VITALS: BP 148/72; PULSE 76; PULSE 80; RESP 20; TEMP 36.8; O2SAT 95
[2021-09-11 01:20] LABS: POC Glucose,Bedside 382 (70-110)
[2021-09-11 04:00] VITALS: BP 137/65; PULSE 70; PULSE 72; RESP 20; TEMP 36.7; O2SAT 94
[2021-09-11 05:00] VITALS: BMI 94.3
--- NOTE | 2021-09-11 05:35 | PC.NURSE ---
Pt is A&O x 4, on room air, VSS. Pt has had no acute episodes or complaints thus far during my shift. IV infusing per order. Monitoring pt via telemetry. Pt has been sinus rhythm with 1st degree block. Monitoring blood glucoses ACHS. Blood glucose at bedtime was 259, medicated per JUL. Cardiology consult in the morning, pt has been NPO since midnight. Pt has rested well this shift. No other needs voiced at this time. Call light in reach.
[2021-09-11 06:42] LABS: Basophils # 0.1 K/mm3 (0-0.2); Basophils % 0.6 % (0.1-2.0); Eosinophils # 0.3 K/mm3 (0.0-0.4); Eosinophils % 3.1 % (0.1-12.0); Hematocrit 35.2 % (37.0-47.0); Hemoglobin 10.4 g/dL (12.2-16.2); Lymphocytes % 31.4 % (10-50); Mean Corpuscular HGB Conc 29.7 g/dL (31.8-35.4); Mean Corpuscular Hemoglobin 23.2 pg (27.0-31.2); Mean Corpuscular Volume 78.1 fl (81-99); Monocytes # 0.4 K/mm3 (0.1-1.0); Monocytes % 4.4 % (1.7-9.3); Neutrophils # 5.8 K/mm3 (1.8-7.8); Neutrophils % 60.6 % (37.0-80.0); Platelet Count 369 K/mm3 (142-424); Red Blood Count 4.51 M/mm3 (4.20-5.40); White Blood Count 9.5 K/mm3 (4.8-10.8)
[2021-09-11 06:57] LABS: Chloride 102 mmol/L (98-107)
[2021-09-11 06:58] LABS: Potassium 4.1 mmoL/L (3.5-5.1); Sodium 138 mmol/L (136-145)
[2021-09-11 07:01] LABS: Anion Gap 6.1 mEq/L (5-15); Blood Urea Nitrogen 22 mg/dl (7-17); Calcium 9.1 mg/dl (8.4-10.2); Carbon Dioxide 34 mmol/L (22.0-30.0); Creatinine Clearance Estimated 46 mL/min (50-200); Estimated Glomerular Filt Rate 62 ml/min (>60); GFR (African American) 75 ML/MIN (>60); Glucose 287 mg/dl (74-100)
--- NOTE | 2021-09-11 07:23 | HMH.PHAVTE ---
[facility] Pharmacy VTE Monitoring - Patient Demographics Admission date: 09/10/21 Report Date: 09/11/21 Time: 07:23 Allergies/Adverse Reactions: Patient Allergies canagliflozin [From Invokana] Allergy (Severe, Verified 08/29/21 10:09) blisters metformin Allergy (Mild, Verified 08/29/21 10:09) Diarrhea, nausea, dizziness sitagliptin [From Januvia] Allergy (Mild, Verified 08/29/21 10:09) Hives linaclotide [From Linzess] Allergy (Verified 08/29/21 10:09) Rash metronidazole [From Metrogel] Allergy (Verified 08/29/21 10:09) Rash nystatin Allergy (Verified 08/29/21 10:09) Dizziness rosuvastatin [From Crestor] Allergy (Verified 08/29/21 10:09) Unknown allergy reaction atorvastatin [From Lipitor] Adverse Reaction (Intermediate, Verified 08/29/21 10:09) body aches andmental confusion spironolactone Adverse Reaction (Verified 08/29/21 10:09) head foggy Height: 1.65 m Weight: 256.8 kg Patient Problems: Current Active Problems Renal insufficiency (Acute) Multiple lacunar infarcts (Acute) Cardiac arrhythmia (Acute) Moderate mitral regurgitation (Acute) UTI (urinary tract infection) (Acute) S/P coronary artery stent placement (Acute) CAD (coronary artery disease) (Chronic) Atrial fibrillation (Chronic) Obesity (Acute) Diabetes mellitus (Chronic) - VTE Risk Labs: VTE Related Lab Results Hgb 10.4 g/dL (12.2-16.2) L 09/11/21 06:25 Hct 35.2 % (37.0-47.0) L 09/11/21 06:25 Plt Count 369 K/mm3 (142-424) 09/11/21 06:25 PT 11.1 seconds (10.1-12.5) 09/10/21 04:09 INR 0.98 (0.9-1.1) 09/10/21 04:09 BUN 22 mg/dl (7-17) H 09/11/21 06:25 Creatinine 0.90 mg/dl (0.52-1.04) 09/11/21 06:25 Estimated Creat Clear 46 mL/min (50-200) 09/11/21 06:25 Clinical Trial Participant: No - Prophylaxis VTE Prophylaxis Ordered?: Yes Types of VTE Prophylaxis: TEDS Knee High
--- NOTE | 2021-09-11 07:58 | HMH.PHAINT ---
Home medication list verified using the patient's PBM claim history, med-rec from recent visit with one of our providers, and information provided by the patient.
[2021-09-11 08:00] VITALS: BP 140/72; PULSE 69; PULSE 70; RESP 22; TEMP 36.7; O2SAT 95
--- NOTE | 2021-09-11 08:09 | CA_ITS ---
APPROVED REPORT EXAM: Comprehensive 2D, Doppler, and color-flow Echocardiogram Tube Heater: KAYLA Thomas, [facility] Ht: 5 ft 4 in Wt: 259lbs BSA: 2.18 HR: 70 bpm BP: 105/56 mmHg Indications: BRADYCARDIA, AFIB, CAD, COVID-HX, CHF, COPD, DM, CP, HTN, HLD 2D Dimensions IVSd 0.79 cm LVEF (Visual) 82.80 % PWd 1.08 cm LA Volume 112.30 mL LVDd 5.25 cm LA Volume Index [id number] mL/m2 (M/F) 16-34 LVDs 2.52 cm M-Mode Dimensions RVDd 2.37 cm (0.9-2.6) LA Diam 4.28 cm (1.9-4.0) LVDd 5.38 cm (3.5-5.7) Ao Diam 3.35 cm (2.0-3.7) LVDs 2.72 cm (3.5-5.7) IVSd 0.76 cm (0.6-1.1) PWd 0.80 cm (0.6-1.1) EF (Teich) 76.00% FS 44.80% EDV (Teich) 114.40 mL ESV (Teich) 27.50 mL Left Ventricle Limited echocardiogram was performed, left atrium is mildly enlarged, left ventricle is normal size, mild concentric left ventricular hypertrophy, estimated ejection fraction 55% with no regional wall motion abnormality. There is no Doppler performed. Right Ventricle Right atrium and right ventricle are mildly enlarged with normal contractility. Aortic Valve Aortic valve is thickened and calcified without aortic stenosis. Mitral Valve Mitral valve has dense mitral calcification. Tricuspid Valve Tricuspid valve grossly normal. Pulmonic Valve Pulmonic valve is poorly visualized. Great Vessels Aortic root is normal size. Inferior vena cava normal size with normal inspiratory collapse. Pericardium No significant pericardial effusion noted. Conclusion 1. Biatrial enlargement, normal left ventricular size, mild concentric left ventricular hypertrophy, estimated ejection fraction 55% with no regional wall motion abnormality, there is no Doppler performed. 2. Mildly enlarged right ventricle with normal contractility. 3. Inferior vena cava normal size with normal inspiratory collapse. 4. No significant pericardial effusion noted. Electronically signed by : Jose Roberto Copeland MD 09/11/2021 21:22:05
--- NOTE | 2021-09-11 08:55 | HMH.ACPN2 ---
Internal Medicine - PN: Subj *Date: 09/11/21 *Time: 08:15 Interval history: pt states she is feeling better. sitting up on side of bed Exam Vital signs and Labs for Last 24 Hours: Temp Pulse Resp BP Pulse Ox 98.0 F 72 20 137/65 94 L 09/11/21 04:00 09/11/21 04:00 09/11/21 04:00 09/11/21 04:00 09/11/21 04:00 Laboratory Results - last 24 hr 09/10/21 10:11: Troponin I 0.03 09/10/21 16:23: POC Glucose 382 H* 09/11/21 06:25: WBC 9.5, RBC 4.51, Hgb 10.4 L, Hct 35.2 L, MCV 78.1 L, MCH 23.2 L, MCHC 29.7 L, RDW 15.0, Plt Count 369, MPV 8.0, Neut % (Auto) 60.6, Lymph % (Auto) 31.4, [place]field % (Auto) 4.4, Eos % (Auto) 3.1, Baso % (Auto) 0.6, Neut # (Auto) 5.8, Lymph # (Auto) 3.0, [place] # (Auto) 0.4, Eos # (Auto) 0.3, Baso # (Auto) 0.1 09/11/21 06:25: Sodium 138, Potassium 4.1, Chloride 102, Carbon Dioxide 34 H, Anion Gap 6.1, BUN 22 H, Creatinine 0.90, Estimated Creat Clear 46, Estimated GFR 62, Est GFR ( Amer) 75 D, Glucose 287 H, Calcium 9.1, Magnesium 2.0 I & O for Last 24 hours: Intake & Output 09/08/21 09/09/21 09/10/21 09/11/21 11:59 11:59 11:59 11:59 Intake Total 1210 / 1210 Balance 1210 / 1210 Weight 259 lb 15.999 oz 566 lb 2.353 oz Microbiology Reports for the Last 24 Hours: Microbiology 09/10/21 04:24 Urine,Clean Catch Urine Culture - Preliminary NO GROWTH AFTER 24 HOURS - Constitutional no acute distress - *Routine HEENT Exam Head: Present: normocephalic Eye: Present: PERRL ENT: Present: mucous membranes moist - *Routine Neck Exam Present: supple. Absent: lymphadenopathy - *Routine Respiratory Exam Present: CTA bilaterally - *Routine Cardiovascular Exam Present: bradycardia - *Routine Abdominal Exam Present: soft, normoactive bowel sounds. Absent: tenderness - *Routine Extremities Exam Present: normal capillary refill. Absent: cyanosis, clubbing, edema - *Routine Skin Exam Present: warm. Absent: rash - *Routine Neurological Exam Present: alert, oriented X3 Assessment and Plan (1) Renal insufficiency Status: Acute Category: Medical Code(s): N28.9 - Disorder of kidney and ureter, unspecified (2) Multiple lacunar infarcts Status: Acute Category: Medical Code(s): I63.81 - Other cerebral infarction due to occlusion or stenosis of small artery (3) Cardiac arrhythmia Status: Acute Qualifiers: Arrhythmia type: other cardiac arrhythmia Qualified Code(s): I49.8 - Other specified cardiac arrhythmias Category: Medical Code(s): I49.9 - Cardiac arrhythmia, unspecified (4) Moderate mitral regurgitation Status: Acute Category: Medical Code(s): I34.0 - Nonrheumatic mitral (valve) insufficiency (5) UTI (urinary tract infection) Status: Acute Qualifiers: Urinary tract infection type: site unspecified Hematuria presence: without hematuria Qualified Code(s): N39.0 - Urinary tract infection, site not specified Category: Medical Code(s): N39.0 - Urinary tract infection, site not specified (6) CAD (coronary artery disease) Status: Chronic Qualifiers: Coronary Disease-Associated Artery/Lesion type: [place] artery [place] vs. transplanted heart: [place] heart Associated angina: unspecified whether angina present Qualified Code(s): I25.10 - Atherosclerotic heart disease of [place] coronary artery without angina pectoris Category: Medical Code(s): I25.10 - Atherosclerotic heart disease of [place] coronary artery without angina pectoris (7) Obesity Status: Acute Qualifiers: Obesity type: due to excess calories Obesity classification: adult class 3 (BMI >= 40) Serious obesity comorbidity presence: with serious comorbidity Body mass index: BMI 40.0-44.9 Qualified Code(s): E66.01 - Morbid (severe) obesity due to excess calories; Z68.41 - Body mass index [BMI] 40.0-44.9, adult Category: Medical Code(s): E66.9 - Obesity, unspecified - Assessment and pl
[2021-09-11 09:00] VITALS: BMI 42.6
[2021-09-11 11:06] VITALS: BMI 42.6
[2021-09-11 12:00] VITALS: BP 141/69; PULSE 75; PULSE 80; RESP 20; TEMP 36.7; O2SAT 98
[2021-09-11 12:06] LABS: POC Glucose,Bedside 236 (70-110)
--- NOTE | 2021-09-11 12:08 | HMH.CNCARD ---
History of Present Illness Consult date: 09/11/21 Requesting physician: Roddy Kitchen Consult reason: shortness of breath Chief complaint: SOA History of present illness: This is a 66-year-old white female who presented to the emergency department with complaints of shortness of breath and not feeling well. The patient states that she was short of breath for a few days prior to admission and just overall did not feel well. She states she checked her blood pressure and it was low and she also checked her pulse which was low. She then called her daughter and her daughter recommended that she come to the emergency department for further evaluation. The patient states that her shortness of breath was with exertion. She states that she can even walk to the bathroom without becoming significantly short of breath and just overall not feeling well. The patient has known diabetes and atrial fibrillation. When the patient got to the emergency department she was found to be bradycardic with a heart rate in the 40s. She was hypotensive. She did have a slight fever and the patient was diagnosed with a UTI. The patient states that she feels much better now. She states that her shortness of breath has essentially resolved and her blood pressure and heart rate have improved. She denies any chest pain or pressure. She denies any fever, chills, nausea, vomiting, diarrhea, PND or orthopnea. *Chief complaint: low bp /pulse *History of present illness: this patient presented to the ed with low bp and pulse and has known cardiac disease and diabetes - pt with slight fever and not feeling well also and was noted in the ed with low hr and has uti- pt was admitted after card consult for eval and possible pacemaker - pt also with chest pain and known cad - [facility] History [facility] History I have reviewed the patient's past medical history: Yes Medical History: Reports:: Anxiety, Atrial Fibrillation, Congestive Heart Failure, Chronic Obstructive Pulmonary Disease (COPD), Coronary Artery Disease, Depression, Diabetes Mellitus Type 2, Gastroesophageal Reflux Disease(GERD), Hyperlipidemia, Hypertension, Lung Disease, Transient Ischemic Attacks (TIA) Denies:: Cancer, Diabetes Mellitus Type 1, Internal Pacemaker, MRSA, Seizures *Have you ever received a pneumonia vaccine?: No *Have you received a flu vaccine this season?: Yes Other Medical History: Reports: Arthritis. Denies: Blood Transfusion Reaction, Cataracts, Glaucoma, Hypothyroidism, Thyroid Disease Laterality Cases: Left: Other Other Surgeries: Yes: Cardiac Catheterization, Cardiac Surgery, Cholecystectomy, Colonoscopy, Coronary Stent, EGD, Hysterectomy-Total, Other. No: Pacemaker Amputation: No Fractures: No - *Social History Smoking Status: Former smoker Tobacco Type: cigarettes # Packs/Day (cigarettes): 1 #Yrs smoked (if former smoker): 5 Alcohol Intake: never Alcohol Intake Frequency:: other Substance Use Type: denies use *Occupational Status:: unemployed Housing: house Household Members: children *Travel in the last 8 weeks: None - Psychiatric History Pschychiatric History:: Reports:: Anxiety, Depression Family Hx:: No significant family history Meds Home Medications Medication Instructions Recorded Confirmed Type Aspirin [Aspirin 81mg EC Tab] 81 mg PO DAILY 05/20/20 09/10/21 History fenofibrate 160 mg tablet 160 mg PO DAILY #90 tab 11/07/20 09/10/21 Rx albuterol sulfate 1.25 mg/3 mL 1.25 mg INHALATION QID PRN #90 ml 08/21/21 09/10/21 Rx solution for nebulization furosemide 40 mg tablet 40 mg PO DAILY tab 08/29/21 09/10/21 History Azelastine HCl [Azelastine Nasal 2 spray INTRANASAL BID 09/10/21 09/10/21 History [place] 30mL Bottle] Blood Sugar Diagnostic [OneTouch See Rx Instructions .ROUTE 09/10/21 09/10/21 History Ultra Test] DIRECTED Buspirone HCl [Buspirone 30mg 30 mg PO BID 09/10/21 09/10/21 History Tablets] Cetirizine HCl 10 mg PO DAILY 09/10/21 09/10/21 Hist
--- NOTE | 2021-09-11 12:30 | PC.NURSE ---
verified with ablsarbjit mitchell to give patient flecainide
--- NOTE | 2021-09-11 14:50 | PC.NURSE ---
patient has done well this shift. heart rate has remained within normal limits. has had no complaints or symptoms. independent in room. tolerating diet well. vitals stable.
[2021-09-11 16:00] VITALS: BP 143/67; PULSE 68; PULSE 90; RESP 20; TEMP 36.5; O2SAT 92
--- NOTE | 2021-09-11 16:14 | HMH.DCSUM ---
General - General Admission date:: 09/10/21 Discharge date: 09/11/21 HPI HPI: this patient presented to the ed with low bp and pulse and has known cardiac disease and diabetes - pt with slight fever and not feeling well also and was noted in the ed with low hr and has uti- pt was admitted after card consult for eval and possible pacemaker - pt also with chest pain and known cad - Hospital Course Hospital Course: Abnormal Lab Results 09/10/21 16:23: POC Glucose 382 H* 09/11/21 06:25: Hgb 10.4 L, Hct 35.2 L, MCV 78.1 L, MCH 23.2 L, MCHC 29.7 L 09/11/21 06:25: Carbon Dioxide 34 H, BUN 22 H, Glucose 287 H 09/11/21 11:35: POC Glucose 236 H Microbiology 09/10/21 04:24 Urine,Clean Catch Urine Culture - Preliminary Gram Negative Rods - Assessment and plan all Dx Assessment and Plan for all problems:: Plan: 1. The patient was admitted to the hospital with shortness of breath, low blood pressure and low pulse rate. The patient states that she had not felt well for several days prior to coming to the emergency department. She was also found to have a UTI. She is getting IV antibiotics for her urinary tract infection. Will defer management of this to her primary care team. 2. The patient was bradycardic on admission with a heart rate in the 40s. She was also hypotensive. Her heart rate has improved and is now in the 70s and 80s and even the low 90s today. She has been restarted on her atenolol and flecainide for paroxysmal atrial fibrillation. We will continue these medications at this time since her heart rate has improved. No plans for permanent pacemaker placement at this time. The patient may have just had increased vagal tone from her urinary tract infection. 3. We will give the patient Lasix 40 mg IV x1 dose for diuresis secondary to her shortness of breath. She does have a history of diastolic congestive heart failure and her BNP is elevated. 4. Coronary artery disease is present. Her troponins are negative. No plans for invasive left cardiac catheterization at this time. 5. Her blood pressure is now well controlled. 6. Her LDL goal is less than 55. 7. As mentioned above the patient does have paroxysmal atrial fibrillation. On flecainide and atenolol. She does take Xarelto for long-term anticoagulation. This can be restarted. 8. Prior to discharge home the patient would benefit from having a 30-day event monitor placed to make sure she has no recurrence of the bradycardia. 9. Further recommendations were made pending the patient's response to treatment. Thank you for the opportunity to help participate in the care of this patient. All recommendations and orders are per Dr. Albright. discharge Plan (1) Sinus [id number] event monitor (2) CAD (coronary artery disease) Her troponins are negative. No plans for invasive left cardiac catheterization at this time. (3) Cardiac arrhythmia-restarted on her atenolol and flecainide for paroxysmal atrial fibrillation. (4) Renal insufficiency-labs stable, follow up with bmp in 1 week (5) UTI (urinary tract infection)-micro Gram Negative Rods no final I &D yet (6) Obesity-low fat/calorie/choles diet (7) S/P coronary artery stent placement-continue meds (8) Atrial fibrillation bradycardic on admission with a heart rate in the 40s. She was also hypotensive. Heart rate has improved in the 70s and 80s and even the low 90s today. restarted on her atenolol and flecainide for paroxysmal atrial fibrillation. We will continue these medications at this time since her heart rate has improved. (9) CHF (congestive heart failure)-history of diastolic congestive heart failure, echo completed but not read yet (10) CVA (cerebral vascular accident)- chronic- Xarelto for long-term anticoagulation. Objective Vital signs: Temp Pulse Resp BP Pulse Ox 98.0 F 75 20 141/69 H 98 09/11/21 12:00 09/11/21 12:0
[2021-09-11 16:57] LABS: POC Glucose,Bedside 311 (70-110)
--- NOTE | 2021-09-11 17:46 | PC.NURSE ---
30 day heart monitor placed on patient before discharge
--- NOTE | 2021-09-12 13:30 | CARE MANAGER ---
Contacted patient related to hospital discharge follow up. She states she picked up her medication and has been taking it. She states that she made her an appointment with Dr. Kitchen but still needs to schedule her appointment for Dr. Albright, but thtat she will do it. Denies questions or concerns. SAMUEL Gonzalez
== END 2021-09-11 17:48 | disposition home or self-care (01) ==
LOC: ER 04:00 → 2ND 07:48
PROVIDERS: Admitting Provider Emergency Medicine; Emergency Provider Emergency Medicine; PCP Physician Assistant; Visit Provider Emergency Medicine
DX: I48.0 Paroxysmal atrial fibrillation (principal); Z20.822 Contact with and (suspected) exposure to COVID-19; E11.9 Type 2 diabetes mellitus without complications; Z79.4 Long term (current) use of insulin; I50.32 Chronic diastolic (congestive) heart failure; I11.0 Hypertensive heart disease with heart failure; I25.10 Atherosclerotic heart disease of native coronary artery without angina pectoris; J44.9 Chronic obstructive pulmonary disease, unspecified; Z79.899 Other long term (current) drug therapy; Z88.8 Allergy status to other drugs, medicaments and biological substances; Z79.01 Long term (current) use of anticoagulants; K21.9 Gastro-esophageal reflux disease without esophagitis; E66.01 Morbid (severe) obesity due to excess calories; Z68.41 Body mass index [BMI] 40.0-44.9, adult; I34.0 Nonrheumatic mitral (valve) insufficiency; N39.0 Urinary tract infection, site not specified
CPT/HCPCS: G0378; 36415; 70450; 71046; 80048; 80053; 81001; 82009; 82962; 83735; 83880; 84145; 84439; 84443; 84484; 85025; 85610; 85651; 86140; 87086; 87088; 87186; 93005; 93270; 93308; 96372; 99285; C9803; J0696; U0003; U0005

== ENCOUNTER → 2021-09-22 10:15 | Outpatient (CLI) | payer MEDICARE, BC, SELFPAY ==
[2021-09-22 12:12] LABS: Anion Gap 14.2 mEq/L (5-15); Blood Urea Nitrogen 31 mg/dl (7-17); Calcium 9.5 mg/dl (8.4-10.2); Carbon Dioxide 28 mmol/L (22.0-30.0); Chloride 99 mmol/L (98-107); Estimated Glomerular Filt Rate 55 ml/min (>60); GFR (African American) 67 ML/MIN (>60); Potassium 4.2 mmoL/L (3.5-5.1); Sodium 137 mmol/L (136-145)
[2021-09-22 12:21] LABS: NT Pro Brain Natriuretic Pep. 416 pg/mL (0-125)
[2021-09-22 13:07] LABS: Glucose 413 mg/dl (74-100)
== END ==
PROVIDERS: PCP Physician Assistant; Visit Provider Internal Medicine Cardiovascular Disease
DX: I34.0 Nonrheumatic mitral (valve) insufficiency (principal); I50.9 Heart failure, unspecified; R00.1 Bradycardia, unspecified; R06.00 Dyspnea, unspecified; R42 Dizziness and giddiness; Z95.5 Presence of coronary angioplasty implant and graft
CPT/HCPCS: 36415; 80048; 83880

== ENCOUNTER 2021-11-16 11:18 | Emergency (ER) | payer MEDICARE, BC, SELFPAY ==
--- NOTE | 2021-11-16 11:24 | XR_ITS ---
FINAL REPORT CLINICAL HISTORY: injury, pt states that she fell this morning, and that the pain is primarily on the dorsal lateral aspect of her right foot. FINDINGS: RIGHT FOOT Three views of the right foot demonstrate a transverse fracture at the base of the 5th metatarsal. There are mild degenerative changes. The soft tissues are unremarkable. IMPRESSION: Transverse fracture at the base of the 5th metatarsal. Reviewed, Interpreted and Dictated by Don Ortiz III, MD Transcribed by Briseida Posada Authenticated and [facility]
[2021-11-16 11:40] VITALS: BP 150/64; PULSE 78; RESP 16; TEMP 36.8; O2SAT 98; BMI 41.5
--- NOTE | 2021-11-16 12:09 | HMH.EDUTC ---
[facility] [place] Impression: Fracture of base of fifth metatarsal bone Qualifiers: Encounter type: initial encounter Fracture type: closed Laterality: right Qualified Code(s): S92.351A - Displaced fracture of fifth metatarsal bone, right foot, initial encounter for closed fracture Disposition: Home, Self-Care Condition on Discharge: Good Instructions: How To Perform RICE (Rest, Ice, Compress, Elevate) Additional Instructions: Use walker to help you get around *RICE, Rest the extremity, Ice 15-20 minutes 3-4 times daily, Compress- wear the ambar wrap as discussed as much as possible to help reduce swelling and pain, Elevate the extremity when at rest *Walking boot is for support and help control swelling,. Be sure that is not to tight but not to loose either *Elevate when resting *Ibuprofen 600-800mg every 6-8 hours as needed for pain an inflammation if your doctor has said that you can take it. If need something more can take Tylenol in between doses of Ibuprofen to help Immediately follow up with your family doctor for new or worsening of symptoms, or no noticeable improvement over the next 3-5 days Call Orthopedic office first thing in the morning to see Dr Jimenez Return if needed Straight to ER if any life threatening symptoms Referrals: Reva Lou PA [Primary Care Provider] - As needed Wes Jimenez JR, MD [Physician] - As needed (Call office first thing tomorrow morning for appointment with Dr Jimenez tomorrow) Time of Disposition: 12:27 Medical Decision Making - Marco A Inquiry Pt receiving controlled substance: No Marco A was queried for this patient: No Vital Signs: 11/16/21 11:40 11/16/21 12:35 Temperature 98.2 F 98.2 F Temperature Source Oral Pulse Rate 78 Pulse Rate [Right Brachial] 78 Respiratory Rate 16 16 Blood Pressure 150/64 H Blood Pressure [Right Arm] 150/64 H Blood Pressure Mean [Right Arm] 92 Blood Pressure Source [Right Arm] Automatic Cuff Blood Pressure Position [Right Arm] Sitting 02 Sat by Pulse Oximetry 98 Oxygen Delivery Method Room Air - Radiology Data #1 Image(s): Foot/Toes Image Reviewed: Yes I reviewed the patient's radiology image fracture base of 5th metatarsal appears like christine fracture - Physician Consults Physician Consulted: Dr Jimenez Reason -: Orthopedic Eval/Care Comment/Response: Spoke with Dr Jimenez advised walking boot, crutches/walker and have her follow up in the office tomorrow Medical Decision Narrative: No short cam walking boot Prescription sent to [facility] they have one in stock and patient reports that she [place] walker [place] [facility] [place] - General Stated complaint: ao 11/16 fall, right foot pain/swelling Time Seen by Provider: 11/16/21 12:09 Mode of Arrival: Ambulatory Source of Information: Patient Limitations: No Limitations Description of Symptoms (Recalled from Triage Doc. by RN): PATIENT C/O INJURY TO RIGHT FOOT AFTER FALLING HEENT Symptoms (Recalled from RN notes): No Resp Symptoms (Recalled from RN notes): No Skin Symptoms (Recalled from RN notes): No MS Symptoms (Recalled from RN notes): Yes Functional Status (Recalled from RN notes): WNL - History of Present Illness Provider Complaint: Patient states that this morning she was chasing her dog when she rolled her right foot as she was stepping up on curb and fell States that she has been having pain/bruising to right foot ever since and hurts when she walks on it States that she also has abrasion to right left knee but knee doesnt hurt - Related Data Home Medications Medication Instructions Recorded Confirmed Aspirin [Aspirin 81mg EC Tab] 81 mg PO DAILY 05/20/20 11/03/21 furosemide 40 mg tablet 40 mg PO DAILY tab 08/29/21 11/03/21 Azelastine HCl [Azelastine Nasal 2 spray INTRANASAL BID 09/10/21 11/03/21 [place] 30mL Bottle] Blood Sugar Diagnostic [Assure See Rx Instructions .ROUTE 09/10/21 11/03/21 [place] Test Strip] DIRECTED
[2021-11-16 12:35] VITALS: BP 150/64; PULSE 78; RESP 16; TEMP 36.8; O2SAT 98
== END 2021-11-16 12:52 | disposition home or self-care (01) ==
PROVIDERS: Emergency Provider Nurse Practitioner; PCP Physician Assistant
DX: S92.351A Displaced fracture of fifth metatarsal bone, right foot, initial encounter for closed fracture (principal); W10.1XXA Fall (on)(from) sidewalk curb, initial encounter; Z79.01 Long term (current) use of anticoagulants; Z79.82 Long term (current) use of aspirin; Z79.899 Other long term (current) drug therapy; Z88.8 Allergy status to other drugs, medicaments and biological substances; I48.91 Unspecified atrial fibrillation; J44.9 Chronic obstructive pulmonary disease, unspecified; I25.10 Atherosclerotic heart disease of native coronary artery without angina pectoris; E11.9 Type 2 diabetes mellitus without complications; K21.9 Gastro-esophageal reflux disease without esophagitis; E78.5 Hyperlipidemia, unspecified; I10 Essential (primary) hypertension; M19.90 Unspecified osteoarthritis, unspecified site
CPT/HCPCS: 73630; 99212; G0463

== ENCOUNTER → 2021-12-01 11:28 | Outpatient (CLI) | payer MEDICARE, BC, SELFPAY ==
--- NOTE | 2021-12-01 11:33 | XR_ITS ---
FINAL REPORT CLINICAL HISTORY: foot fracture COMPARISON: 11/16/2021 FINDINGS: RIGHT FOOT Three views were obtained. There is a transverse fracture at the base of the 5th metatarsal with bony resorption along the fracture. IMPRESSION: Fracture as above. Reviewed, Interpreted and Dictated by Matthew Silva MD Transcribed by Angelica Davenport Authenticated and [facility]
== END ==
PROVIDERS: PCP Physician Assistant; Visit Provider Orthopaedic Surgery
DX: S92.901A Unspecified fracture of right foot, initial encounter for closed fracture (principal)
CPT/HCPCS: 73630

== ENCOUNTER → 2022-01-12 10:52 | Outpatient (CLI) | payer MEDICARE, BC, SELFPAY ==
--- NOTE | 2022-01-12 11:04 | XR_ITS ---
FINAL REPORT CLINICAL HISTORY: foot fracture, follow up care COMPARISON: December 01, 2021 FINDINGS: RIGHT FOOT Three views of the right foot again demonstrate a displaced fracture at the base of the 5th metatarsal. Diastasis measures about 5 mm. There has been progressive widening of the fracture line which may be related to bony resorption at the margin of the fracture The visualized joint spaces are normally aligned. The soft tissues are unremarkable. IMPRESSION: Displaced fracture at the base of the 5th metatarsal with progressive widening of the fracture line which may be related to bony resorption at the margin of the fracture. Reviewed, Interpreted and Dictated by Matthew Silva MD Transcribed by Elis Chen Authenticated and [facility]
== END ==
PROVIDERS: PCP Physician Assistant; Visit Provider Orthopaedic Surgery
DX: S92.901A Unspecified fracture of right foot, initial encounter for closed fracture (principal)
CPT/HCPCS: 73630

== ENCOUNTER → 2022-01-23 08:11 | Outpatient (CLI) | payer MEDICARE, BC, SELFPAY | PROVIDERS: PCP Physician Assistant; Visit Provider Physician Assistant | DX: N89.8 Other specified noninflammatory disorders of vagina (principal); N39.0 Urinary tract infection, site not specified | CPT/HCPCS: 87086; 87088; 87210 ==

== ENCOUNTER → 2022-01-24 11:48 | Outpatient (CLI) | payer MEDICARE, BC, SELFPAY ==
--- NOTE | 2022-01-24 11:53 | XR_ITS ---
FINAL REPORT CLINICAL HISTORY: low back pain; obesity FINDINGS: AP and lateral views were obtained. There is no acute fracture. There is mild anterolisthesis of L4 on L5. There are mild and moderate degenerative changes. There is facet arthropathy in the lower lumbar spine. There is leftward curvature. There are moderate vascular calcifications. IMPRESSION: Mild and moderate degenerative changes. Reviewed, Interpreted and Dictated by Don Ortiz III, MD Transcribed by Arian Lamb Authenticated and [facility]
== END ==
PROVIDERS: PCP Physician Assistant; Visit Provider Nurse Practitioner Family
DX: M54.9 Dorsalgia, unspecified (principal); M54.50 Low back pain, unspecified
CPT/HCPCS: 72100

== ENCOUNTER → 2022-02-01 12:58 | Outpatient (CLI) | payer MEDICARE, BC, SELFPAY ==
--- NOTE | 2022-02-01 12:58 | MM_ITS ---
PROCEDURE INFORMATION: Exam: MG Bilateral Screening 3D Mammography Exam date and time: 02/01/2022 12:55 PM Age: 66 years old Clinical indication: Screening examination. No family history of breast cancer. History of left benign excisional biopsy. TECHNIQUE: Imaging protocol: Bilateral Screening tomosynthesis and 2D mammography including computer-aided detection (CAD) when performed. COMPARISON: 1. MG MM DIG SCREENING MAMM BI W/CAD 02/03/2020 8:48 AM 2. MG SCBI MM Dig screening mamm BI w/CAD 07/24/2018 1:50 PM 3. MG DMSB DIG MAMM-SCREEN SABINO W/CAD 08/24/2016 8:38 AM 4. MG DMSB DIG MAMM-SCREEN [place] 07/19/2015 10:29 AM FINDINGS: MAMMOGRAPHY: Breast composition: There are scattered areas of fibroglandular density. Mass: No suspicious masses. Architectural distortion: None. Calcifications: No suspicious calcifications. Asymmetric density: None. Skin thickening: None. Axillary adenopathy: None. IMPRESSION: No mammographic evidence of malignancy. Annual screening is recommended unless otherwise clinically indicated. ASSESSMENT: BI-RADS Category 1: Negative
== END ==
PROVIDERS: PCP Physician Assistant; Visit Provider Physician Assistant
DX: Z12.31 Encounter for screening mammogram for malignant neoplasm of breast (principal)
CPT/HCPCS: 77063; 77067

== ENCOUNTER → 2022-02-09 10:11 | Outpatient (CLI) | payer MEDICARE, BC, SELFPAY ==
--- NOTE | 2022-02-09 10:17 | XR_ITS ---
FINAL REPORT CLINICAL HISTORY: rt fooft pain COMPARISON: 01/12/2022 FINDINGS: Right foot Three views were obtained. There is a displaced fracture at the base of the 5th metatarsal. No callus formation is seen. Findings are similar to previous. The joint spaces appear normal. No soft tissue abnormality is identified. IMPRESSION: Displaced fracture at the base of the 5th metatarsal, similar to previous. Reviewed, Interpreted and Dictated by Matthew Silva MD Transcribed by Angelica Davenport Authenticated and [facility]
== END ==
PROVIDERS: PCP Physician Assistant; Visit Provider Orthopaedic Surgery
DX: M79.671 Pain in right foot (principal)
CPT/HCPCS: 73630

== ENCOUNTER → 2022-02-15 10:47 | Outpatient (CLI) | payer MEDICARE, BC, SELFPAY ==
--- NOTE | 2022-02-15 10:47 | CT_ITS ---
FINAL REPORT TECHNIQUE: Thin section axial CT images with coronal and sagittal reformats were performed. This study was performed with techniques to keep radiation doses as low as reasonably achievable (ALARA). Individualized dose reduction techniques using automated exposure control or adjustment of mA and/or kV according to the patient's size were employed. CLINICAL HISTORY: rt foot fracture FINDINGS: CT LOWER RIGHT FOOT W/O CONTRAST There is a transverse fracture of the proximal 5th metatarsal without bony union. Separation of the bony margins measures 3 mm. No callus formation is evident. There is no obvious surrounding abscess. No mass or fluid collection is identified. There are no soft tissue abnormalities. 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 Reviewed, Interpreted and Dictated by Faith Goldberg MD Transcribed by Elis Chen Authenticated and [facility]
[2022-02-15 12:07] LABS: Hemoglobin A1C 10.2 % (4.0-6.0)
== END ==
PROVIDERS: PCP Physician Assistant; Visit Provider Orthopaedic Surgery
DX: S92.351G Displaced fracture of fifth metatarsal bone, right foot, subsequent encounter for fracture with delayed healing (principal); E11.42 Type 2 diabetes mellitus with diabetic polyneuropathy; Z79.4 Long term (current) use of insulin
CPT/HCPCS: 36415; 73700; 83036

== ENCOUNTER → 2022-02-21 11:36 | Outpatient (CLI) | payer MEDICARE, BC, SELFPAY ==
[2022-02-21 13:20] LABS: Calcium 9.4 mg/dl (8.4-10.2)
[2022-02-21 13:36] LABS: 25-OH Vitamin D, Total 23.4 ng/mL (30-100)
[2022-02-22 07:12] LABS: Prealbumin 22 mg/dL (10-36)
== END ==
PROVIDERS: PCP Physician Assistant; Visit Provider Orthopaedic Surgery
DX: E55.9 Vitamin D deficiency, unspecified (principal); S92.351G Displaced fracture of fifth metatarsal bone, right foot, subsequent encounter for fracture with delayed healing
CPT/HCPCS: 36415; 82306; 82310; 84134

== ENCOUNTER → 2022-03-06 09:52 | Outpatient (POV) | payer MEDICARE, BC, SELFPAY | PROVIDERS: Visit Provider Dermatology | DX: Z00.00 Encounter for general adult medical examination without abnormal findings (principal) ==

== ENCOUNTER 2022-03-06 16:54 | Emergency (ER) | payer MEDICARE, BC, SELFPAY ==
--- NOTE | 2022-03-06 17:48 | EXP.UTC ---
Discharge Plan Disposition Patient Disposition: Home, Self-Care Condition: Good Prescriptions Prescriptions: No Action metoprolol succinate [Toprol XL] 25 mg tablet extended release 24 hr 25 mg PO DAILY Qty: 30 5RF spironolactone [Aldactone] 25 mg tablet 25 mg PO .M, W, F Qty: 15 2RF furosemide 80 mg tablet 80 mg PO DAILY cholecalciferol (vitamin D3) 1,250 mcg (50,000 unit) tablet 2,500 mcg PO WEEKLY Qty: 24 0RF doxycycline hyclate 100 mg tablet 100 mg PO BID Qty: 20 0RF (DME) Dexcom G6 Sensor Device See Rx Instructions .Route Qty: 3 5RF Rx Instructions: As directed (DME) Dexcom G6 Farm Crew Member Misc See Rx Instructions .Route Qty: 1 0RF Rx Instructions: As directed (DME) Dexcom G6 Transmitter Device See Rx Instructions .Route Qty: 1 0RF Rx Instructions: As directed Ozempic 0.25 mg or 0.5 mg(2 mg/1.5 mL) pen injector 0.5 mg SQ WEEKLY 30 Days Qty: 2 3RF Rx Instructions: 0.5 mg weekly X 1 month, then increase to 1 mg weekly insulin glargine [Lantus Solostar U-100 Insulin] 100 unit/mL (3 mL) insulin pen 60 unit SQ HS Qty: 18 5RF insulin lispro protamin-lispro 100 unit/mL (75-25) insulin pen 40 unit SQ BID Qty: 24 5RF albuterol sulfate 1.25 mg/3 mL solution for nebulization 1.25 mg INHALATION QID PRN (Reason: shortness of breath or wheezing) Qty: 90 12RF meclizine 25 mg tablet 25 mg PO TID PRN (Reason: dizziness) Qty: 30 0RF fenofibrate 160 mg tablet 160 mg PO DAILY Qty: 90 3RF losartan 50 mg tablet See Rx Instructions .ROUTE .COMPLEX Qty: 90 2RF Dose Instruction: TAKE ONE TABLET BY MOUTH EVERY DAY Rx Instructions: TAKE ONE TABLET BY MOUTH EVERY DAY clopidogrel 75 mg tablet See Rx Instructions .ROUTE .COMPLEX Qty: 90 0RF Dose Instruction: TAKE 1 TABLET BY MOUTH ONCE DAILY Rx Instructions: TAKE 1 TABLET BY MOUTH ONCE DAILY dexlansoprazole [Dexilant] 60 mg capsule,biphase delayed releas See Rx Instructions .ROUTE .COMPLEX Qty: 90 0RF Dose Instruction: TAKE 1 CAPSULE BY MOUTH EVERY DAY FOR STOMACH Rx Instructions: TAKE 1 CAPSULE BY MOUTH EVERY DAY FOR STOMACH (DME) lancets [Accu-Chek Softclix Lancets] Misc See Rx Instructions .ROUTE .COMPLEX Qty: 100 10RF Dose Instruction: DIRECTED Rx Instructions: DIRECTED Ozempic 0.25 mg or 0.5 mg(2 mg/1.5 mL) pen injector See Rx Instructions .ROUTE .COMPLEX Qty: 1.5 0RF Dose Instruction: INJECT 0.25 MG SUBQ WEEKLY FOR 4 DOSES Rx Instructions: INJECT 0.25 MG SUBQ WEEKLY FOR 4 DOSES (DME) pen needle, diabetic [Unifine Pentips] 31 gauge x 3/16 needle See Rx Instructions .ROUTE .COMPLEX Qty: 100 3RF Dose Instruction: 3 TIMES A DAY WITH PENS Rx Instructions: 3 TIMES A DAY WITH PENS buspirone 30 mg tablet See Rx Instructions .ROUTE .COMPLEX Qty: 180 3RF Dose Instruction: TAKE ONE TABLET BY MOUTH TWICE A DAY *MAY CAUSE DROWSINESS* Rx Instructions: TAKE ONE TABLET BY MOUTH TWICE A DAY *MAY CAUSE DROWSINESS* metronidazole [Vandazole] 0.75 % (37.5mg/5 gram) gel 1 appful vaginal BID 5 Days Qty: 70 0RF gabapentin 100 mg capsule 100 mg PO TID Qty: 90 0RF sertraline 100 mg tablet See Rx Instructions .ROUTE .COMPLEX Qty: 30 0RF Dose Instruction: TAKE 1 TABLET BY MOUTH AT BEDTIME FOR DEPRESSION; Rx Instructions: TAKE 1 TABLET BY MOUTH AT BEDTIME FOR DEPRESSION; ropinirole 4 mg tablet See Rx Instructions .ROUTE .COMPLEX Qty: 180 0RF Dose Instruction: TAKE 1 TABLET BY MOUTH TWICE DAILY FOR RESTLESS LEG SYNDROME Rx Instructions: TAKE 1 TABLET BY MOUTH TWICE DAILY FOR RESTLESS LEG SYNDROME bupropion HCl 150 mg tablet sustained-release 12 hr See Rx Instructions .ROUTE .COMPLEX Qty: 180 0RF Dose Instruction: TAKE 1 TABLET BY MOUTH TWICE DAILY Rx Instructions: TAKE 1 TABLET BY MOUTH TWICE DAILY
--- NOTE | 2022-03-06 17:50 | XR_ITS ---
PROCEDURE INFORMATION: Exam: XR Right Foot Exam date and time: 03/06/2022 5:50 PM Age: 66 years old Clinical indication: Pain; Patient HX: Previous FX in right foot December 2021 TECHNIQUE: Imaging protocol: Radiologic exam of the Right foot. Views: 3 or more views. COMPARISON: CT FOOT RT WO CON 02/15/2022 10:56 AM, right foot three views 02/09/2022, 01/12/2022, 12/01/2021. FINDINGS: Bones/joints: There is a persistent ununited fracture involving the base of the 5th metatarsal. Previously demonstrated widening of the fracture plane now measures approximately 4 mm. Overall appearance is not significantly changed. There is slight sclerosis of the fracture margins suggesting possible developing pseudoarthrosis. Soft tissues: Normal. IMPRESSION: 1. 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 Approximate 4 mm separation of the fracture plane, minimally changed. 2. Findings suggestive of possible developing pseudoarthrosis. Clinically correlate.
[2022-03-06 17:56] VITALS: BP 141/69; PULSE 77; RESP 18; TEMP 36.3; O2SAT 95; BMI 41.5
[2022-03-06 18:37] VITALS: BP 141/69; PULSE 77; RESP 18; TEMP 36.6
== END 2022-03-06 18:44 | disposition home or self-care (01) ==
PROVIDERS: Emergency Provider Nurse Practitioner Family; PCP Physician Assistant
DX: M79.671 Pain in right foot (principal); R42 Dizziness and giddiness; R06.02 Shortness of breath; I10 Essential (primary) hypertension; I34.0 Nonrheumatic mitral (valve) insufficiency; K21.9 Gastro-esophageal reflux disease without esophagitis; E78.00 Pure hypercholesterolemia, unspecified; G62.9 Polyneuropathy, unspecified; J44.9 Chronic obstructive pulmonary disease, unspecified; F41.9 Anxiety disorder, unspecified; F39 Unspecified mood [affective] disorder; Z79.01 Long term (current) use of anticoagulants; Z79.02 Long term (current) use of antithrombotics/antiplatelets; Z79.4 Long term (current) use of insulin; Z79.82 Long term (current) use of aspirin; Z79.51 Long term (current) use of inhaled steroids; Z79.84 Long term (current) use of oral hypoglycemic drugs; Z79.899 Other long term (current) drug therapy; Z87.891 Personal history of nicotine dependence
CPT/HCPCS: 73630; 99213; G0463

== ENCOUNTER → 2022-04-03 11:30 | Outpatient (CLI) | payer MEDICARE, BC, SELFPAY ==
[2022-04-03 20:20] LABS: Erythrocyte Sedimentation Rate 50 mm/hr (0-30)
[2022-04-03 20:26] LABS: C-Reactive Protein 5.2 mg/L (0-4)
== END ==
PROVIDERS: PCP Student in an Organized Health Care Education/Training Program; Visit Provider Student in an Organized Health Care Education/Training Program
DX: R68.84 Jaw pain (principal)
CPT/HCPCS: 85651; 86140

== ENCOUNTER → 2022-04-10 07:29 | Outpatient (CLI) | payer MEDICARE, BC, SELFPAY ==
--- NOTE | 2022-04-10 07:34 | MR_ITS ---
FINAL REPORT CLINICAL HISTORY: ANTONY, vision changes, hx tia COMPARISON: CT from August 2021 FINDINGS: Multiplanar MR imaging of the brain was performed without contrast. There is right parieto-occipital encephalomalacia consistent with prior infarct. There is mild age-appropriate atrophy. There are scattered foci of increased T2 signal in the cerebral white matter that have a nonspecific appearance but likely represent mild chronic ischemic/gliotic changes. There is no evidence of intracranial hemorrhage or mass. No abnormal ventricular dilatation is identified. No abnormal extra-axial fluid collection is seen. No abnormality is seen on the diffusion weighted images. The posterior fossa and brainstem are unremarkable. Normal major vessel vascular flow voids are seen. IMPRESSION: Right parieto-occipital encephalomalacia consistent with prior infarct. Age-appropriate atrophy and mild chronic ischemic/gliotic changes. No acute intracranial abnormality. Reviewed, Interpreted and Dictated by Don Ortiz III, MD Transcribed by Arina Lamb Authenticated and [facility]
== END ==
PROVIDERS: PCP Student in an Organized Health Care Education/Training Program; Visit Provider Student in an Organized Health Care Education/Training Program
DX: R51.9 Headache, unspecified (principal); R68.84 Jaw pain
CPT/HCPCS: 70551

== ENCOUNTER → 2022-04-16 13:45 | Outpatient (CLI) | payer MEDICARE, BC, SELFPAY ==
--- NOTE | 2022-04-16 13:46 | CA_ITS ---
FINAL REPORT CLINICAL HISTORY: VERTIGO,ANTONY,CAD,HTN FINDINGS: An ultrasound of the carotid arteries was performed. Duplex Doppler evaluation with spectral analysis was performed. The peak systolic velocity of the right common carotid artery is 76 cm/s. The peak systolic velocity of the right internal carotid artery is 125 cm/s and end diastolic velocity 27 cm/s. A small amount of plaque is present. The right external carotid artery is patent. The right vertebral artery is patent with antegrade flow. ICA/CCA ratio: 2.09 The peak systolic velocity of the left common carotid artery is 89 cm/s. The peak systolic velocity of the left internal carotid artery is 106 cm/s and end diastolic velocity 30 cm/s. A small amount of plaque is present. The left external carotid artery is patent. The left vertebral artery is patent with antegrade flow. ICA/CCA ratio: 1.68 Bilateral patent vertebral arteries with antegrade flow. IMPRESSION: Less than 50% carotid stenosis bilaterally. Reviewed, Interpreted and Dictated by Faith Goldberg MD Transcribed by Arian Lamb Authenticated and . [facility]
== END ==
PROVIDERS: PCP Student in an Organized Health Care Education/Training Program; Visit Provider Student in an Organized Health Care Education/Training Program
DX: M54.2 Cervicalgia (principal); R42 Dizziness and giddiness; R51.9 Headache, unspecified
CPT/HCPCS: 93880

== ENCOUNTER → 2022-04-24 14:29 | Outpatient (POV) | payer MEDICARE, BC, SELFPAY | PROVIDERS: Visit Provider Dermatology | DX: Z00.00 Encounter for general adult medical examination without abnormal findings (principal) ==

== ENCOUNTER → 2022-05-18 13:33 | Outpatient (CLI) | payer MEDICARE, BC, SELFPAY ==
--- NOTE | 2022-05-18 13:39 | XR_ITS ---
FINAL REPORT CLINICAL HISTORY: F/U foot fracture COMPARISON: February 2022 FINDINGS: 3 views of the right foot were obtained. There is a fracture through the base of 5th metatarsal with up to 6 mm of distraction. This appears unchanged. There is a lack of bony fusion which could be delayed union or nonunion. There are mild degenerative changes. There is mild elix valgus deformity. IMPRESSION: Fifth metatarsal fracture with delayed union or nonunion. Stable. Reviewed, Interpreted and Dictated by Don Ortiz III, MD Transcribed by Arian Lamb Authenticated and [facility]
== END ==
PROVIDERS: PCP Physician Assistant; Visit Provider Orthopaedic Surgery
DX: S92.351G Displaced fracture of fifth metatarsal bone, right foot, subsequent encounter for fracture with delayed healing (principal)
CPT/HCPCS: 73630

== ENCOUNTER 2022-05-25 13:15 | Emergency (ER) | payer MEDICARE, BC, SELFPAY ==
[2022-05-25 13:16] VITALS: BP 164/81; PULSE 74; RESP 17; TEMP 37.1; O2SAT 98; BMI 41.5
[2022-05-25 14:01] VITALS: BP 156/77; PULSE 71; O2SAT 96
--- NOTE | 2022-05-25 14:10 | PC.NURSE ---
DR. BECKER AT BEDSIDE
--- NOTE | 2022-05-25 14:12 | HMH.EDGENADL ---
Discharge Plan Disposition Patient Disposition: Home, Self-Care Condition: Good Chief Complaint: Recheck/Abnormal Lab/Rx Prescriptions Prescriptions: No Action spironolactone [Aldactone] 25 mg tablet 25 mg PO .M, W, F Qty: 15 2RF methylprednisolone 4 mg tablets,dose pack See Rx Instructions PO PER PKG DIR Qty: 21 0RF Rx Instructions: PO PER PKG DIR (DME) Dexcom G6 Sensor Device See Rx Instructions .Route Qty: 3 5RF Rx Instructions: As directed (DME) Dexcom G6 Deputy Treasurer Misc See Rx Instructions .Route Qty: 1 0RF Rx Instructions: As directed (DME) Dexcom G6 Transmitter Device See Rx Instructions .Route Qty: 1 0RF Rx Instructions: As directed Ozempic 0.25 mg or 0.5 mg(2 mg/1.5 mL) pen injector 0.5 mg SQ WEEKLY 30 Days Qty: 2 3RF Rx Instructions: 0.5 mg weekly X 1 month, then increase to 1 mg weekly insulin glargine [Lantus Solostar U-100 Insulin] 100 unit/mL (3 mL) insulin pen 60 unit SQ HS Qty: 18 5RF insulin lispro protamin-lispro 100 unit/mL (75-25) insulin pen 40 unit SQ BID Qty: 24 5RF cyclobenzaprine 10 mg tablet 10 mg PO TID PRN (Reason: muscle spasm) Qty: 60 0RF albuterol sulfate 1.25 mg/3 mL solution for nebulization 1.25 mg INHALATION QID PRN (Reason: shortness of breath or wheezing) Qty: 90 12RF fenofibrate 160 mg tablet 160 mg PO DAILY Qty: 90 3RF losartan 50 mg tablet See Rx Instructions .ROUTE .COMPLEX Qty: 90 2RF Dose Instruction: TAKE ONE TABLET BY MOUTH EVERY DAY Rx Instructions: TAKE ONE TABLET BY MOUTH EVERY DAY (DME) lancets [Accu-Chek Softclix Lancets] Misc See Rx Instructions .ROUTE .COMPLEX Qty: 100 10RF Dose Instruction: DIRECTED Rx Instructions: DIRECTED Ozempic 0.25 mg or 0.5 mg(2 mg/1.5 mL) pen injector See Rx Instructions .ROUTE .COMPLEX Qty: 1.5 0RF Dose Instruction: INJECT 0.25 MG SUBQ WEEKLY FOR 4 DOSES Rx Instructions: INJECT 0.25 MG SUBQ WEEKLY FOR 4 DOSES (DME) pen needle, diabetic [Unifine Pentips] 31 gauge x 3/16 needle See Rx Instructions .ROUTE .COMPLEX Qty: 100 3RF Dose Instruction: 3 TIMES A DAY WITH PENS Rx Instructions: 3 TIMES A DAY WITH PENS buspirone 30 mg tablet See Rx Instructions .ROUTE .COMPLEX Qty: 180 3RF Dose Instruction: TAKE ONE TABLET BY MOUTH TWICE A DAY *MAY CAUSE DROWSINESS* Rx Instructions: TAKE ONE TABLET BY MOUTH TWICE A DAY *MAY CAUSE DROWSINESS* metronidazole [Vandazole] 0.75 % (37.5mg/5 gram) gel 1 appful vaginal BID 5 Days Qty: 70 0RF ezetimibe 10 mg tablet See Rx Instructions .ROUTE .COMPLEX Qty: 90 0RF Dose Instruction: TAKE ONE TABLET BY MOUTH EVERY DAY FOR CHOLESTEROL Rx Instructions: TAKE ONE TABLET BY MOUTH EVERY DAY FOR CHOLESTEROL clopidogrel 75 mg tablet See Rx Instructions .ROUTE .COMPLEX Qty: 90 0RF Dose Instruction: TAKE 1 TABLET BY MOUTH ONCE DAILY Rx Instructions: TAKE 1 TABLET BY MOUTH ONCE DAILY bupropion HCl 150 mg tablet sustained-release 12 hr See Rx Instructions .ROUTE .COMPLEX Qty: 180 0RF Dose Instruction: TAKE 1 TABLET BY MOUTH TWICE DAILY Rx Instructions: TAKE 1 TABLET BY MOUTH TWICE DAILY metoprolol succinate [Toprol XL] 25 mg tablet extended release 24 hr 25 mg PO DAILY Qty: 30 5RF flecainide 100 mg tablet See Rx Instructions .ROUTE .COMPLEX Qty: 180 2RF Dose Instruction: TAKE 1 TABLET BY MOUTH EVERY 12 HOURS Rx Instructions: TAKE 1 TABLET BY MOUTH EVERY 12 HOURS dexlansoprazole [Dexilant] 60 mg capsule,biphase delayed releas See Rx Instructions .ROUTE .COMPLEX Qty: 90 0RF Dose Instruction: TAKE 1 CAPSULE BY MOUTH EVERY DAY FOR STOMACH Rx Instructions: TAKE 1 CAPSULE BY MOUTH EVERY DAY FOR STOMACH furosemide 40 mg tablet See Rx Instructions .ROUTE .COMPLEX Qty: 90 2RF Dose Instruction: TAKE ONE TABLET BY MO
[2022-05-25 14:30] VITALS: BP 165/78; PULSE 66; RESP 17; TEMP 36.7; O2SAT 99
== END 2022-05-25 14:30 | disposition home or self-care (01) ==
PROVIDERS: Emergency Provider Emergency Medicine; PCP Physician Assistant
DX: I10 Essential (primary) hypertension (principal); R51.9 Headache, unspecified; F41.9 Anxiety disorder, unspecified; G62.9 Polyneuropathy, unspecified; K21.9 Gastro-esophageal reflux disease without esophagitis; I34.0 Nonrheumatic mitral (valve) insufficiency; Z87.891 Personal history of nicotine dependence
CPT/HCPCS: 99283; 99284

== ENCOUNTER 2022-07-06 07:23 | Day surgery (SDC) | payer MEDICARE, MEDICAID, SELFPAY ==
[2022-07-06 07:35] VITALS: BMI 41.5
[2022-07-06 07:44] VITALS: BP 153/80; PULSE 75; RESP 18; TEMP 36.1; O2SAT 96
[2022-07-06 08:12] LABS: Basophils # 0.1 K/mm3 (0-0.2); Basophils % 1.2 % (0.1-2.0); Eosinophils # 0.2 K/mm3 (0.0-0.4); Eosinophils % 1.9 % (0.1-12.0); Hematocrit 43.9 % (37.0-47.0); Hemoglobin 13.7 g/dL (12.2-16.2); Lymphocytes # 2.6 K/mm3 (0.7-4.5); Mean Corpuscular HGB Conc 31.3 g/dL (31.8-35.4); Mean Corpuscular Hemoglobin 27.2 pg (27.0-31.2); Mean Corpuscular Volume 86.9 fl (81-99); Mean Platelet Volume 7.6 fl (7.4-10.4); Monocytes # 0.6 K/mm3 (0.1-1.0); Monocytes % 5.2 % (1.7-9.3); Neutrophils # 7.8 K/mm3 (1.8-7.8); Neutrophils % 68.6 % (37.0-80.0); Platelet Count 446 K/mm3 (142-424); Red Blood Count 5.05 M/mm3 (4.20-5.40); Red Cell Distribution Width 14.9 % (11.5-17.5); White Blood Count 11.3 K/mm3 (4.8-10.8)
[2022-07-06 08:28] LABS: Chloride 103 mmol/L (98-107); Potassium 4.3 mmoL/L (3.5-5.1); Sodium 143 mmol/L (136-145)
[2022-07-06 08:30] LABS: Blood Urea Nitrogen 26 mg/dl (7-17); Creatinine Clearance Estimated 40 mL/min (50-200); Estimated Glomerular Filt Rate 45 ml/min (>60); GFR (African American) 54 ML/MIN (>60)
[2022-07-06 08:31] LABS: Alanine Aminotransferase 32 U/L (12-78); Albumin/Globulin Ratio 1.2 (1.1-1.8); Alkaline Phosphatase 93 U/L (38-126); Anion Gap 11.3 mEq/L (5-15); Aspartate Amino Transferase 27 U/L (14-36); Bilirubin,Total 0.4 mg/dl (0.2-1.3); Carbon Dioxide 33 mmol/L (22.0-30.0); Globulin 3.4 g/dL (1.3-3.2); Glucose 63 mg/dl (74-100); Total Protein,Serum 7.4 g/dl (6.3-8.2)
[2022-07-06 09:25] VITALS: BP 130/75; PULSE 74; RESP 15; TEMP 36.7; O2SAT 91
--- NOTE | 2022-07-06 09:28 | P.PN_ITS ---
[facility] Disclaimer: The information contained in this section may have been updated after the patient was seen, as this information can be updated by other users. Medical History Anxiety Breast cyst COPD (chronic obstructive pulmonary disease) Dermoid cyst of head Diabetes mellitus, type 2 Dizziness Ganglion cyst GERD (gastroesophageal reflux disease) HTN (hypertension) Moderate mitral regurgitation Mood disorder Neck pain Neuropathy Surgical History History of cholecystectomy History of colonoscopy History of hysterectomy Family History Other Family history of Alzheimer's disease Family history of myocardial infarction Social History Smoking Status: Former smoker pack-years: 5 second hand exposure: Yes alcohol intake: never counseling provided: provider counseling substance use type: denies use current occupational status: retired and other Travel in the last 8 weeks: Inside the [place] household members: children housing: house lives independently: Yes marital status: legally education level: high school current occupational exposures/hazards: No caffeine: Yes special lex needs: No agree to transfusion: No do you feel safe at home: Yes victim of physical abuse: No victim of emotional abuse: No victim of sexual abuse: No would you like helpful sources: No [facility] Anesthesia Checklist Patient Identification Patient Identification: Arm Band and Family Structural Data Admitted From: Home Planned Operative Procedure/s: Triger Finger release, right ring fingerr. Consent for Planned Operative Procedure(s) Verified: Yes Verified Documents: Surgical Consent and History and Physical NPO Status Verified Time NPO: 00:00 Additional verifications Patient : No Anesthesia Reactions: No Hx Blood Transfusions: No Blood Transfusion Reaction: No Cephalosporin Allergy: No Previous Colonoscopy: No Airway Assessment C-Spine Mobility Assessed: Yes TMJ Mobility Assessed: Yes Dentition: Poor Dentition Neurological Assessment Level of Consciousness: Awake, Alert, Appropriate and Follows Commands Hx Seizures: No Numbness or tingling in extremities: No Anesthesia Plan Anesthesia Risk discussed: Yes ASA Class: III Anesthesia Type: MAC Preoperative Comments Pre-Operative Comments: IDDM. COPD. History of Atrial Fib.
[2022-07-06 09:35] VITALS: BP 135/71; PULSE 72; RESP 16; O2SAT 93
--- NOTE | 2022-07-06 09:35 | P.OP_ITS ---
Date of procedure: 07/06/22 Pre-op Diagnosis:: Right ring finger trigger finger Post-op Diagnosis:: Same Procedure performed:: 24828: Right ring finger trigger finger release Surgeon:: Wes Jimenez JR, MD Rail Car Maintenance Mechanic(s):: None Anesthesia: MAC Estimated blood loss (mL): 5 Clinical Note:: 67-year-old female with right ring finger trigger finger refractory to corticosteroid injection and therapy. She had persistent triggering which sometimes had to be manually reduced. Having failed conservative measures she was interested in more durable intervention. After discussion of risk, benefits, alternatives, she wished to proceed with right ring finger trigger finger release. We discussed the risk and benefits of surgery. Risks included but were not limited to pain, bleeding, infection, damage to adjacent structures, need for further surgery, wound healing complications, loss of limb, . Patient expressed verbal consent and written consent was obtained for the above procedure. Operative findings:: A1 sunil release confirmed visually with free gliding of flexor tendons. Operative note:: Patient was identified in preoperative holding. Operative site was marked in indelible ink. History, physical, consent were reviewed and updated. Patient was surrendered to the anesthesia team, taken to the operative suite, placed supine on a well-padded operative table. The operative extremity was prepped and draped in the usual sterile fashion. The operative team donned sterile gowns and gloves and a timeout was called. All in attendance agreed regarding the patient's identity, procedure, operative site. Weight-based dose of antibiotics was given prior to incision. I examined and angulated the right hand with an Esmarch bandage which I left in place over the distal forearm which was removed at the end of the case. I made a longitudinal incision proximal to the metacarpal phalangeal crease in line with the ring finger flexor tendons. I dissected through skin and subcutaneous tissue with care taken to avoid injuring the adjacent neurovascular structures, identified the A1 sunil. I mixed this with a 15 blade scalpel, placed a freer deep to the sunil, and incised the A1 sunil proximally distally utilizing tenotomy scissors. I inspected the tendons which were noted to glide freely, had no apparent injury. I copiously irrigated the wound, closed with nylon suture, sterile dressing applied. Counts were correct x2. There were no apparent complications. I was present scrubbed for the entire case. Condition: stable Disposition: PACU Complications:: None apparent
[2022-07-06 09:45] VITALS: BP 146/77; PULSE 69; RESP 17; O2SAT 96
[2022-07-06 09:55] VITALS: BP 156/84; PULSE 68; RESP 16; O2SAT 96
[2022-07-06 12:32] LABS: POC Glucose,Bedside 65 (70-110)
== END 2022-07-06 10:10 | disposition home or self-care (01) ==
PROVIDERS: PCP Physician Assistant; Visit Provider Orthopaedic Surgery
PROC: (CPT 26055; principal; 2022-07-06 08:45)
DX: M65.341 Trigger finger, right ring finger (principal); E11.9 Type 2 diabetes mellitus without complications; Z79.01 Long term (current) use of anticoagulants; Z79.4 Long term (current) use of insulin
CPT/HCPCS: 26055; 80053; 82962; 85025; 96374; J2405

== ENCOUNTER → 2022-08-27 09:59 | Outpatient (CLI) | payer MEDICARE, MEDICAID, SELFPAY ==
[2022-08-27 11:05] LABS: Basophils # 0.1 K/mm3 (0-0.2); Basophils % 0.6 % (0.1-2.0); Eosinophils # 0.2 K/mm3 (0.0-0.4); Eosinophils % 1.9 % (0.1-12.0); Hematocrit 41.7 % (37.0-47.0); Hemoglobin 13.1 g/dL (12.2-16.2); Lymphocytes # 2.2 K/mm3 (0.7-4.5); Lymphocytes % 22.8 % (10-50); Mean Corpuscular HGB Conc 31.4 g/dL (31.8-35.4); Mean Corpuscular Hemoglobin 27.9 pg (27.0-31.2); Mean Corpuscular Volume 88.8 fl (81-99); Mean Platelet Volume 7.7 fl (7.4-10.4); Monocytes # 0.4 K/mm3 (0.1-1.0); Monocytes % 4.4 % (1.7-9.3); Neutrophils # 6.8 K/mm3 (1.8-7.8); Neutrophils % 70.3 % (37.0-80.0); Platelet Count 331 K/mm3 (142-424); Red Blood Count 4.69 M/mm3 (4.20-5.40); Red Cell Distribution Width 14.4 % (11.5-17.5); White Blood Count 9.6 K/mm3 (4.8-10.8)
[2022-08-27 11:49] LABS: Alanine Aminotransferase 26 U/L (12-78); Albumin Level 3.6 g/dl (3.5-5.0); Alkaline Phosphatase 88 U/L (38-126); Anion Gap 7.1 mEq/L (5-15); Aspartate Amino Transferase 25 U/L (14-36); Bilirubin,Indirect 0.3 mg/dL (0.0-0.9); Bilirubin,Total 0.3 mg/dl (0.2-1.3); Bilirubin,Unconjugated 0.3 mg/dL (0.0-1.1); Blood Urea Nitrogen 25 mg/dl (7-17); Calcium 8.9 mg/dl (8.4-10.2); Carbon Dioxide 32 mmol/L (22.0-30.0); Chloride 100 mmol/L (98-107); Chol/HDL Ratio 2.7 (1-3.5); Cholesterol 176 mg/dl (140-200); Estimated Glomerular Filt Rate 49 ml/min (>60); GFR (African American) 60 ML/MIN (>60); Glucose 141 mg/dl (74-100); HDL Cholesterol 65 mg/dl (40-60); Potassium 4.1 mmoL/L (3.5-5.1); Sodium 135 mmol/L (136-145); Total Protein,Serum 6.3 g/dl (6.3-8.2); Triglycerides 164 mg/dl (30-150); VLDL Cholesterol 33 mg/dL (0-40)
[2022-08-27 12:00] LABS: Direct LDL Cholesterol 83.99 mg/dL (100-129)
[2022-08-27 12:05] LABS: Free T4 (Free Thyroxine) 1.02 ng/dl (0.78-2.19)
== END ==
PROVIDERS: PCP Physician Assistant; Visit Provider Nurse Practitioner
DX: E11.42 Type 2 diabetes mellitus with diabetic polyneuropathy (principal); I10 Essential (primary) hypertension; I25.10 Atherosclerotic heart disease of native coronary artery without angina pectoris; I48.0 Paroxysmal atrial fibrillation; I50.9 Heart failure, unspecified; J44.9 Chronic obstructive pulmonary disease, unspecified; K21.9 Gastro-esophageal reflux disease without esophagitis; R06.02 Shortness of breath; I11.9 Hypertensive heart disease without heart failure; I63.9 Cerebral infarction, unspecified; N89.8 Other specified noninflammatory disorders of vagina; R10.10 Upper abdominal pain, unspecified; Z79.4 Long term (current) use of insulin
CPT/HCPCS: 36415; 80048; 80061; 80076; 84439; 85025; 87086; 87210; 93306

== ENCOUNTER 2022-08-27 12:58 | Outpatient (RCR) | payer MEDICARE, MEDICAID, SELFPAY ==
--- NOTE | 2022-08-27 13:48 | HMH.OTOPEV ---
OT Inpatient Evaluation Rehab OT Outpatient Eval Start: 08/27/22 13:32 Freq: Status: Active Protocol: Document 08/27/22 13:32 SUSHANTSCOTT (Rec: 08/27/22 13:47 KENNEDI [id number]) E-signed By Maryellen Strauss, OT Outpatient Therapy Subjective History Subjective History 67 year old female referred to skilled OP OT services for R UE ring finger trigger release on 07/06/22. Patient is currently 7 weeks out this week. Patient has unknown dates on when to return to ortho for follow-up. There is an area of broken skin to the incision site, No redness/ infection noted. No drainage notice either. OT encouraged Patient to continue to keep it clean and covered up in order to heal appropriatly. Patient verbalize dropping items at home with attempting to complete cooking and household task of washing dishes. 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 Chief Complaint Pain,Weakness Symptom Type Ache Symptoms Relieved By Nothing Symptoms Aggravated By Physical Activity Prior Functional Limitations None Current Functional Limitations Reaching,Recreation Activity Symptom Description Constant and Continuous Level of pain today (0-10) 0 Pain scale - at its best (0-10) 0 Pain scale - at its worst (0-10) 9 Wrist/Hand Eval Finger Range of Motion Right Ring Finger Finger Metacarpophalangeal Flexion 70 Active Range of Motion (degrees) Finger Metacarpophalangeal Extension 0 Active Range of Motion (degrees) Finger Proximal Interphalangeal Flexion 110 Active Range (degrees) Finger Proximal Interphalangeal 0 Extension Active Range (degrees) Finger Distal Interphalangeal Flexion 60 Active Range of Motion (degrees) Finger Distal Interphalangeal Extension 0 Active Range Motion (degrees) Clinical Research Tech/Pinch Strength Right Clinical Research Tech Strength Measurement (lbs) 20 Left Clinical Research Tech Strength Measurement (lbs) 45 OT Outpatient Assessment Impairments Problems/Impairments Impaired Range of Motion, Impaired Strength,Subjective C /O Pain Prognosis Rehab Potential Good Clinical Impression Consistent with Diagnosis Yes Short Term Goals Number of Weeks
== END 2022-08-27 12:59 | disposition home or self-care (01) ==
LOC: OT 12:58
PROVIDERS: PCP Physician Assistant; Visit Provider Orthopaedic Surgery
DX: M65.341 Trigger finger, right ring finger (principal)
CPT/HCPCS: 97165; 97530

== ENCOUNTER → 2022-09-04 09:29 | Outpatient (POV) | payer MEDICARE, MEDICAID, SELFPAY | PROVIDERS: Visit Provider Dermatology | DX: Z00.00 Encounter for general adult medical examination without abnormal findings (principal) ==

== ENCOUNTER → 2022-10-02 11:43 | Outpatient (CLI) | payer MEDICARE, MEDICAID, SELFPAY ==
[2022-10-02 14:16] LABS: Basophils % 0.4 % (0.1-2.0); Eosinophils # 0.2 K/mm3 (0.0-0.4); Eosinophils % 2.1 % (0.1-12.0); Hematocrit 42.8 % (37.0-47.0); Hemoglobin 13.4 g/dL (12.2-16.2); Lymphocytes # 2.1 K/mm3 (0.7-4.5); Lymphocytes % 23.2 % (10-50); Mean Corpuscular HGB Conc 31.5 g/dL (31.8-35.4); Mean Corpuscular Hemoglobin 28.4 pg (27.0-31.2); Mean Corpuscular Volume 90.2 fl (81-99); Mean Platelet Volume 7.7 fl (7.4-10.4); Monocytes # 0.5 K/mm3 (0.1-1.0); Monocytes % 5.1 % (1.7-9.3); Neutrophils # 6.4 K/mm3 (1.8-7.8); Neutrophils % 69.2 % (37.0-80.0); Platelet Count 382 K/mm3 (142-424); Red Blood Count 4.74 M/mm3 (4.20-5.40); Red Cell Distribution Width 14.1 % (11.5-17.5); White Blood Count 9.2 K/mm3 (4.8-10.8)
[2022-10-02 14:34] LABS: Alanine Aminotransferase 32 U/L (12-78); Albumin Level 3.8 g/dl (3.5-5.0); Albumin/Globulin Ratio 1.3 (1.1-1.8); Alkaline Phosphatase 95 U/L (38-126); Anion Gap 18.3 mEq/L (5-15); Aspartate Amino Transferase 36 U/L (14-36); Bilirubin,Total 0.3 mg/dl (0.2-1.3); Blood Urea Nitrogen 24 mg/dl (7-17); Calcium 9.1 mg/dl (8.4-10.2); Carbon Dioxide 30 mmol/L (22.0-30.0); Chloride 95 mmol/L (98-107); Estimated Glomerular Filt Rate 55 ml/min (>60); GFR (African American) 67 ML/MIN (>60); Glucose 171 mg/dl (74-100); Potassium 4.3 mmoL/L (3.5-5.1); Sodium 139 mmol/L (136-145); Total Protein,Serum 6.8 g/dl (6.3-8.2)
[2022-10-02 14:55] LABS: Hemoglobin A1C 7.4 % (4.0-6.0)
[2022-10-02 16:18] LABS: Microalbumin/Creatinine Ratio 15.6
[2022-10-02 16:29] LABS: Creatinine,Urine Random 39 mg/dL (Not Estab.)
== END ==
PROVIDERS: PCP Physician Assistant; Visit Provider Physician Assistant
DX: E11.42 Type 2 diabetes mellitus with diabetic polyneuropathy (principal); Z79.84 Long term (current) use of oral hypoglycemic drugs
CPT/HCPCS: 80053; 82043; 82570; 83036; 85025

== ENCOUNTER 2022-10-12 08:53 | Emergency (ER) | payer MEDICARE, MEDICAID, SELFPAY ==
[2022-10-12 08:55] VITALS: BP 157/71; PULSE 69; RESP 20; TEMP 36.4; O2SAT 97; BMI 38.7
[2022-10-12 09:11] LABS: Apearance,Urine Cloudy (Clear); Color,Urine Dark Yellow (Yellow); Glucose,Urine (UA) Negative (Negative); Ketones,Urine Negative (Negative); Protein,Urine Negative (Negative)
[2022-10-12 09:12] LABS: Bilirubin,Urine Negative (Negative); Blood, Urine Negative (Negative); UTC Leukocyte Esterase,Urine 1+ (Negative); UTC Nitrate,Urine Negative (Negative); Urobilinogen,Urine 0.2 EU/dl (0.2)
--- NOTE | 2022-10-12 09:18 | EXP.UTC ---
Discharge Plan Disposition Patient Disposition: Home, Self-Care Condition: Good Prescriptions Prescriptions: New methylprednisolone [Medrol ([place])] 4 mg tablets,dose pack 4 mg PO DIRECTED Qty: 21 0RF lidocaine [Lidoderm] 5 % adhesive patch,medicated 1 patch topical DAILY Qty: 30 0RF Rx Instructions: leave on most painful area for up to 12 hrs tizanidine [Zanaflex] 4 mg tablet 4 mg PO TID PRN (Reason: muscle spasticity) Qty: 30 0RF No Action cyclobenzaprine 10 mg tablet 10 mg PO TID PRN (Reason: muscle spasm) Qty: 60 0RF (DME) Dexcom G7 Vp [employer] Digital Marketing Misc See Rx Instructions .Route Qty: 1 0RF Rx Instructions: As directed Ozempic 2 mg/dose (8 mg/3 mL) pen injector 2 mg SQ WEEKLY Qty: 3 2RF (DME) Dexcom G7 Sensor Device See Rx Instructions .Route Qty: 1 5RF Rx Instructions: As directed furosemide 40 mg tablet 40 mg PO ondansetron 8 mg tablet,disintegrating 8 mg PO Q8H PRN (Reason: nausea and vomiting) Qty: 30 2RF gabapentin 300 mg capsule 300 mg PO BID Qty: 60 2RF albuterol sulfate 1.25 mg/3 mL solution for nebulization 1.25 mg INHALATION QID PRN (Reason: shortness of breath or wheezing) Qty: 90 12RF fenofibrate 160 mg tablet 160 mg PO DAILY Qty: 90 3RF meclizine 25 mg tablet 25 mg PO TID PRN (Reason: dizziness) Qty: 30 0RF (DME) pen needle, diabetic [Unifine Pentips] 31 gauge x 1/4 needle See Rx Instructions .Route Qty: 100 2RF Rx Instructions: As directed with pen insulin glargine [Lantus Solostar U-100 Insulin] 100 unit/mL (3 mL) insulin pen See Rx Instructions .ROUTE .COMPLEX Qty: 15 4RF Dose Instruction: INJECT 60 UNITS (0.6 ML) SUBCUTANEOUSLY AT BEDTIME NIGHTLY Rx Instructions: INJECT 60 UNITS (0.6 ML) SUBCUTANEOUSLY AT BEDTIME NIGHTLY furosemide 80 mg tablet See Rx Instructions .ROUTE .COMPLEX Qty: 90 1RF Dose Instruction: TAKE 1 TABLET BY MOUTH ONCE DAILY Rx Instructions: TAKE 1 TABLET BY MOUTH ONCE DAILY ropinirole 4 mg tablet See Rx Instructions .ROUTE .COMPLEX Qty: 180 0RF Dose Instruction: TAKE 1 TABLET BY MOUTH TWICE DAILY Rx Instructions: TAKE 1 TABLET BY MOUTH TWICE DAILY cholecalciferol (vitamin D3) 1,250 mcg (50,000 unit) capsule See Rx Instructions .ROUTE .COMPLEX Qty: 24 0RF Dose Instruction: TAKE 2 CAPSULES BY MOUTH EVERY WEEK Rx Instructions: TAKE 2 CAPSULES BY MOUTH EVERY WEEK famotidine 20 mg tablet See Rx Instructions .ROUTE .COMPLEX Qty: 90 0RF Dose Instruction: TAKE 1 TABLET BY MOUTH AT BEDTIME Rx Instructions: TAKE 1 TABLET BY MOUTH AT BEDTIME memantine 7 mg capsule,sprinkle,ER 24hr See Rx Instructions .ROUTE .COMPLEX Qty: 30 1RF Dose Instruction: TAKE 1 CAPSULE BY MOUTH ONCE DAILY Rx Instructions: TAKE 1 CAPSULE BY MOUTH ONCE DAILY losartan 50 mg tablet 50 mg PO DAILY Qty: 90 1RF ezetimibe 10 mg tablet See Rx Instructions .ROUTE .COMPLEX Qty: 90 0RF Dose Instruction: TAKE ONE TABLET BY MOUTH EVERY DAY FOR CHOLESTEROL Rx Instructions: TAKE ONE TABLET BY MOUTH EVERY DAY FOR CHOLESTEROL bupropion HCl 150 mg tablet sustained-release 12 hr See Rx Instructions .ROUTE .COMPLEX Qty: 180 0RF Dose Instruction: TAKE 1 TABLET BY MOUTH TWICE DAILY Rx Instructions: TAKE 1 TABLET BY MOUTH TWICE DAILY metoprolol succinate 25 mg tablet extended release 24 hr See Rx Instructions .ROUTE .COMPLEX Qty: 30 4RF Dose Instruction: TAKE 1 TABLET BY MOUTH ONCE DAILY Rx Instructions: TAKE 1 TABLET BY MOUTH ONCE DAILY rivaroxaban 20 mg tablet 20 mg PO DAILY Qty: 30 5RF Rx Instructions: TAKE 1 TABLET BY MOUTH ONCE DAILY dexlansoprazole [Dexilant] 60 mg capsule,biphase delayed releas See Rx Instructions .ROUTE .COMPLEX Qty: 90 0RF Dose Instruction: TAKE 1 CAPSULE BY MOUTH ONCE DAILY FOR STOMACH Rx Instruc
[2022-10-12 09:29] VITALS: BP 157/71; PULSE 69; RESP 20; TEMP 36.4; O2SAT 97
== END 2022-10-12 09:39 | disposition home or self-care (01) ==
PROVIDERS: Emergency Provider Physician Assistant; PCP Physician Assistant
DX: M51.36 Other intervertebral disc degeneration, lumbar region (principal); E11.9 Type 2 diabetes mellitus without complications; J44.9 Chronic obstructive pulmonary disease, unspecified; K21.9 Gastro-esophageal reflux disease without esophagitis; I10 Essential (primary) hypertension; F41.9 Anxiety disorder, unspecified; F39 Unspecified mood [affective] disorder; Z79.4 Long term (current) use of insulin; Z87.891 Personal history of nicotine dependence
CPT/HCPCS: 81003; 87086; 99212; 99214; G0463

== ENCOUNTER → 2022-10-25 10:58 | Outpatient (CLI) | payer MEDICARE, MEDICAID, SELFPAY ==
[2022-11-01 00:12] LABS: D001-IgE D pteronyssinus <0.10 kU/L (Class 0); D002-IgE D farinae <0.10 kU/L (Class 0); E001-IgE Cat Dander <0.10 kU/L (Class 0); E005-IgE Dog Dander <0.10 kU/L (Class 0); E072-IgE Mouse Urine <0.10 kU/L (Class 0); G002-IgE Bermuda Grass <0.10 kU/L (Class 0); G006-IgE Timothy Grass <0.10 kU/L (Class 0); I006-IgE Cockroach, German <0.10 kU/L (Class 0); Immunoglobulin E, Total 310 IU/mL (6-495); M001-IgE Penicillium chrysogen <0.10 kU/L (Class 0); M002-IgE Cladosporium herbarum <0.10 kU/L (Class 0); M003-IgE Aspergillus fumigatus <0.10 kU/L (Class 0); M006-IgE Alternaria alternata <0.10 kU/L (Class 0); T001-IgE Maple/Box Elder <0.10 kU/L (Class 0); T003-IgE Common Silver Birch <0.10 kU/L (Class 0); T006-IgE Cedar, Mountain <0.10 kU/L (Class 0); T007-IgE Oak, White <0.10 kU/L (Class 0); T008-IgE Elm, American <0.10 kU/L (Class 0); T010-IgE Walnut <0.10 kU/L (Class 0); T011-IgE Maple Leaf Sycamore <0.10 kU/L (Class 0); T015-IgE Ash, White <0.10 kU/L (Class 0); T022-IgE Pecan, Hickory <0.10 kU/L (Class 0); T070-IgE White Mulberry <0.10 kU/L (Class 0); W001-IgE Ragweed, Short <0.10 kU/L (Class 0); W011-IgE Thistle, Russian <0.10 kU/L (Class 0); W014-IgE Pigweed, Common <0.10 kU/L (Class 0); W018-IgE Sheep Sorrel <0.10 kU/L (Class 0)
== END ==
PROVIDERS: PCP Physician Assistant; Visit Provider Nurse Practitioner
DX: J30.9 Allergic rhinitis, unspecified (principal)
CPT/HCPCS: 36415; 82785; 86003

== ENCOUNTER → 2022-11-01 11:07 | Outpatient (CLI) | payer MEDICARE, MEDICAID, SELFPAY ==
--- NOTE | 2022-11-01 11:07 | MR_ITS ---
FINAL REPORT CLINICAL HISTORY: low back pain. bilateral ankle tingling. no injury or trauma FINDINGS: Multiplanar MR imaging of the lumbar spine was performed without contrast. On the sagittal T2-weighted images, disc degeneration is seen at multiple levels. There is mild anterolisthesis of L4 on L5. Multiple Schmorl's nodes are identified. There is no evidence of fracture. No bony mass is identified. The conus has an unremarkable appearance. T12-L1: An annular bulge is present. There is no significant canal stenosis or neural foraminal narrowing. L1-2: An annular bulge is present. There is no significant canal stenosis or neural foraminal narrowing. L2-3: An annular bulge is present. There is no significant canal stenosis or neural foraminal narrowing. L3-4: An annular bulge is present. Mild bilateral foraminal narrowing. L4-5: An annular bulge is present. There is a left paracentral disc protrusion possibly impinging on the left L5 nerve root. There is mild canal stenosis with an AP canal diameter of 8 mm. There is mild right and moderate left neural foraminal narrowing. L5-S1: An annular bulge is present. Right facet arthropathy is present. Mild bilateral foraminal narrowing. IMPRESSION: Multilevel degenerative disc disease and spondylosis as described, most severe at the L4-5 level. Reviewed, Interpreted and Dictated by Don Ortiz III, MD Transcribed by Alla Burciaga Authenticated and [facility]
== END ==
PROVIDERS: PCP Physician Assistant; Visit Provider Physician Assistant
DX: M54.50 Low back pain, unspecified (principal)
CPT/HCPCS: 72148; 76376

== ENCOUNTER → 2022-11-14 10:52 | Outpatient (POV) | payer MEDICARE, MEDICAID, SELFPAY ==
--- NOTE | 2022-11-14 11:13 | EXP.PAIN.OV ---
HPI Data of Consult Patient: new to practice Consult date: 11/14/22 Requesting Physician: Sol Osborn APRN Primary Care Provider: JAMES Hernandez Consult Narrative Reason for consult: Low back pain History of present illness: Ms. Shin is a 67 year old female who presents today as a new patient. She is a referral from Reva Luo's office. Today she rates her pain a 9 out of 10. Patient states her pain is all in her low back and denies any radiating symptoms into her lower extremities. Patient does state this pain has been going on for years and progressively worsened over time. She denies any specific trauma or injury that initially led to the symptoms. Patient does describe the pain as an aching, throbbing, sharp sensation that is worse with increased activities. She states it does interfere with her ability to perform activities of daily living such as cooking and cleaning. She also states she has difficulty with lifting anything without having severe pain or twisting. Patient has tried dcsf-neo-mfpidac medications such as Tylenol and ibuprofen along with heat and ice and topicals with minimal relief. Patient is currently managed with gabapentin 300 mg twice a day from her primary care doctor's office. Her Marco A is [phone]. Its been reviewed and appropriate. CC: Sol Osborn APRN [facility] Disclaimer: The information contained in this section may have been updated after the patient was seen, as this information can be updated by other users. Medical History Allergic rhinitis Anxiety Bilateral impacted cerumen Breast cyst left removed COPD (chronic obstructive pulmonary disease) Dermoid cyst of head removed Diabetes mellitus, type 2 Dizziness Ganglion cyst left wrist GERD (gastroesophageal reflux disease) HTN (hypertension) Moderate mitral regurgitation Mood disorder Neck pain Neuropathy Vomiting Surgical History History of cholecystectomy History of colonoscopy History of hysterectomy Status post trigger finger release Family History Other Family history of Alzheimer's disease Family history of myocardial infarction Social History Smoking Status: Former smoker pack-years: 5 second hand exposure: Yes alcohol intake: never counseling provided: provider counseling substance use type: denies use current occupational status: retired and other Travel in the last 8 weeks: Inside the [place] household members: children housing: house lives independently: Yes marital status: legally education level: high school current occupational exposures/hazards: No caffeine: Yes special lex needs: No agree to transfusion: No do you feel safe at home: Yes victim of physical abuse: No victim of emotional abuse: No victim of sexual abuse: No would you like helpful sources: No Review of Systems Review of Systems Review of systems:: pertinent systems reviewed and negative unless documented below Review of systems (narrative): Review of Systems: General: No recent weight changes, no fever, no sleep disturbances Respiratory: No cough, no shortness of air, no recurring pulmonary infections Cardiovascular/peripheral vascular: No chest pain, no palpitations, no edema, no shortness of breath Gastrointestinal: No new onset incontinence, normal bowel movements reported Genitourinary: No new onset incontinence Musculoskeletal: Low back pain Psychiatric: [Normal mood/affect] Neurological: [Denies weakness in extremities], [denies balance issues] Meds Home Medications and Allergies Home Medications Medication Instructions Recorded Confirmed Type albuterol sulfate 1.25 mg/3 mL 1.25 mg (3 mL) inhalation QID PRN
[2022-11-14 11:36] VITALS: BP 165/48; PULSE 70; RESP 18; O2SAT 98; BMI 44.2
== END ==
PROVIDERS: PCP Physician Assistant; Visit Provider Nurse Practitioner Family
DX: M51.36 Other intervertebral disc degeneration, lumbar region (principal); M54.50 Low back pain, unspecified; M47.816 Spondylosis without myelopathy or radiculopathy, lumbar region
CPT/HCPCS: 99202; G0463

== ENCOUNTER → 2022-11-28 09:18 | Outpatient (POV) | payer MEDICARE, MEDICAID, SELFPAY ==
[2022-11-28 09:43] VITALS: BP 134/80; PULSE 72; RESP 18; O2SAT 95; BMI 44.6
--- NOTE | 2022-11-28 09:44 | EXP.PAIN.SOA ---
[facility] Pain Management SOAP Note Subjective:: Patient is a pleasant 67-year-old female who presents today for follow-up. We are currently treating the patient for degenerative disc disease of the lumbar spine with lumbar facet arthropathy, lumbar spondylosis. Today she rates her pain a 0 out of 10. Patient states currently she is doing well however she will occasionally still have flareups of pain in her low back. Patient was going to be scheduled for a lumbar medial branch block however she is currently on blood thinners from Dr. Albright's office and at this time he is not Recommending she stop these. Patient is interested in other options that we may be able to do to provide additional relief. Patient has tried yfzm-rvc-jqoddgy medications such as Tylenol along with heat and ice and topicals with minimal improvement. She is currently managed with gabapentin 300 mg twice a day from her primary care doctor's office. Patient denies any side effects from this medication. Her Marco A is [id number]. Its been reviewed and appropriate. Review of Systems: General: No recent weight changes, no fever, no sleep disturbances Respiratory: No cough, no shortness of air, no recurring pulmonary infections Cardiovascular/peripheral vascular: No chest pain, no palpitations, no edema, no shortness of breath Gastrointestinal: No new onset incontinence, normal bowel movements reported Genitourinary: No new onset incontinence Musculoskeletal: Low back pain Psychiatric: [Normal mood/affect] Neurological: [Denies weakness in extremities], [denies balance issues] Objective:: Physical Exam: General: Alert and oriented x3, no acute distress, pleasant and cooperative Lungs: Respirations even and unlabored, symmetrical chest expansion Eyes: PERRL Musculoskeletal: Flexion and extension of lumbar [spine] somewhat guarded secondary to pain, [antalgic gait noted] Neurological: Speech clear, no gross sensory deficit Assessment:: Degenerative disc disease of lumbar spine with lumbar facet arthropathy, lumbar spondylosis Plan:: Patient continues to have significant pain at her low back however is not able to have injective therapy at this time related to her daily blood thinner. I will order her compounding cream. Patient will return to clinic in 1 month for reevaluation of symptoms and plan of care. Patient has been instructed to contact the clinic with any concerns before the next appointment. Dr. Bryant has reviewed this note and agrees with this plan of care. This note was dictated using voice recognition software and make contain errors or omissions. [facility] Disclaimer: The information contained in this section may have been updated after the patient was seen, as this information can be updated by other users. Medical History Allergic rhinitis Anxiety Bilateral impacted cerumen Breast cyst left removed COPD (chronic obstructive pulmonary disease) Dermoid cyst of head removed Diabetes mellitus, type 2 Dizziness Ganglion cyst left wrist GERD (gastroesophageal reflux disease) HTN (hypertension) Moderate mitral regurgitation Mood disorder Neck pain Neuropathy Vomiting Surgical History History of cholecystectomy History of colonoscopy History of hysterectomy Status post trigger finger release Family History Other Family history of Alzheimer's disease Family history of myocardial infarction Social History (Updated 11/14/22 @ 11:37 by Mignon Khan RN) Smoking Status: Former smoker pack-years: 5 second hand exposure: Yes alcohol intake: never counseling provided: provider counseling substance use type: denies use current occupational status: retired Travel in the last 8 weeks: None household members: children housing: house lives independently: Yes mar
== END ==
PROVIDERS: PCP Physician Assistant; Visit Provider Nurse Practitioner Family
DX: M51.36 Other intervertebral disc degeneration, lumbar region; M47.816 Spondylosis without myelopathy or radiculopathy, lumbar region
CPT/HCPCS: 99212; G0463

== ENCOUNTER 2023-01-09 07:54 | Day surgery (SDC) | payer MEDICARE, MEDICAID, SELFPAY ==
[2022-12-21 09:36] VITALS: BMI 44.6
[2023-01-09] VITALS (8 sets, daily range): BP systolic 95–182; BP diastolic 40–80; PULSE 69–74; RESP 18; TEMP 36.1–36.4; O2SAT 94–97
--- NOTE | 2023-01-09 08:23 | EXP.ANES.CKL ---
[facility] Disclaimer: The information contained in this section may have been updated after the patient was seen, as this information can be updated by other users. Medical History Allergic rhinitis Anxiety Bilateral impacted cerumen Breast cyst COPD (chronic obstructive pulmonary disease) Dermoid cyst of head Diabetes mellitus, type 2 Dizziness Ear itching Ganglion cyst GERD (gastroesophageal reflux disease) HTN (hypertension) Moderate mitral regurgitation Mood disorder Neck pain Neuropathy Obesity Vomiting Surgical History History of cholecystectomy History of colonoscopy History of hysterectomy Status post trigger finger release Family History Other Family history of Alzheimer's disease Family history of myocardial infarction Social History Smoking Status: Former smoker pack-years: 5 second hand exposure: Yes alcohol intake: never counseling provided: provider counseling substance use type: denies use current occupational status: retired Travel in the last 8 weeks: None household members: children housing: house lives independently: Yes marital status: legally education level: high school current occupational exposures/hazards: No caffeine: Yes special lex needs: No agree to transfusion: No do you feel safe at home: Yes victim of physical abuse: No victim of emotional abuse: No victim of sexual abuse: No would you like helpful sources: No [facility] Anesthesia Checklist Patient Identification Patient Identification: Arm Band and Verbal (Name & ) Structural Data Admitted From: Home Planned Operative Procedure/s: E/C Consent for Planned Operative Procedure(s) Verified: Yes NPO Status Verified Time NPO: 00:00 Additional verifications Anesthesia Reactions: No Hx Blood Transfusions: No Blood Transfusion Reaction: No Airway Assessment C-Spine Mobility Assessed: Yes TMJ Mobility Assessed: Yes Dentition: Poor Dentition Neurological Assessment Level of Consciousness: Awake Hx Seizures: No Numbness or tingling in extremities: No Anesthesia Plan Anesthesia Risk discussed: Yes Anesthesia Plan: Verified ASA Class: III Anesthesia Type: MAC
[2023-01-09 08:47] LABS: POC Glucose,Bedside 218 (70-110)
--- NOTE | 2023-01-09 09:36 | HMH.SCOPE ---
Procedure: Date: 01/09/23 Patient Date of :: 1955 Procedure Performed:: EGD Indications:: The patient is a 67 year old who had abdominal pain, nausea, and dysphagia. The patient's abdominal pain and nausea improved with decreasing Ozempic dose Performing Provider:: Sheldon Potter MD Referring Provider:: MD Annamaria Rubin APRN (Gastroenterology) Sedation:: See RN records Procedure:: The gastroscope was gently passed through the incisoral orifice into the oral cavity and under direct visualization the esophagus was intubated. The endoscope was passed down the esophagus, through the stomach, and into the duodenum. Color, texture, mucosa, and anatomy of the esophagus, stomach, and duodenum were carefully examined with the scope. Findings:: Oropharynx: normal Esophagus: Schatzki ring. dilatatoin performed sequentially with 18-20 mm tts balloon EG Junction: mesured at 37 cm Cardia: Hiatal hernia 2-3 cm in size Fundus: normal Body: Gastritis. Biopsies obtained Antrum: Linear erythema. Gastritis. Biopsies obtained Duodenal bulb: Large polyp lesion located within region of posterior bulb, friable. Biopsies obtained Duodenum (second and third portion): normal Impression: Schatzki ring Hiatal hernia Gastritis Large friable duodenal bulb polypoid lesion Recommendations:: Await pathology results Will refer to [facility] for possible resection of large duodenal bulb polyp Complications:: None Estimated blood obtained (mL): 0 Colonoscopy Component Colonoscopy Component Was a colonoscopy performed during today's procedure?: No
--- NOTE | 2023-01-09 09:39 | PC.NURSE ---
Pt arrived to post op with oral airway in place, simple mask on 5L O2.
--- NOTE | 2023-01-09 09:43 | HMH.SCOPE ---
Procedure: Date: 01/09/23 Patient Date of :: 1955 Procedure Performed:: Colonoscopy Indications:: History of polyps in the past Performing Provider:: Sheldon Potter MD Referring Provider:: Roddy Kitchen MD Sedation:: See RN records Procedure:: After placing the patient in the left lateral decubitus position, the colonoscopy was gently inserted into the rectum and under direct visualization advanced to the cecum which was identified by transillumination in the right lower quadrant, identification of the ileocecal valve, appendiceal orifice, and cecal strap. Color, texture, mucosa, and anatomy of the colon were carefully examined with the scope. Bowel preparation was good . Findings:: Anal canal: normal Rectum: hemorrhoids. Four sessile polyps measuring 3-5 mm in size. Removed with cold snare polypectomy. One polyp was not retrieved Sigmoid colon: normal without polyps or inflammatory changes Descending colon: normal without polyps or inflammatory changes Splenic flexure: normal Transverse colon: normal without polyps or inflammatory changes Hepatic flexure: normal Ascending colon: normal without polyps or inflammatory changes Cecum: normal Terminal ileum: not visualized Impression: Polyps of the rectum Recommendations:: Await pathology results Repeat colonoscopy in 3-5 years depending on pathology results Complications:: None Estimated blood obtained (mL): 0 Colonoscopy Component Colonoscopy Component Was a colonoscopy performed during today's procedure?: Yes Recommended follow up colonoscopy of at least 10 years?: Yes
== END 2023-01-09 10:40 | disposition home or self-care (01) ==
PROVIDERS: PCP Physician Assistant; Visit Provider Internal Medicine
PROC: 0DJ08ZZ Inspection of Upper Intestinal Tract, Via Natural or Artificial Opening Endoscopic (ICD-10-PCS; CPT 43235; principal; 2023-01-09 09:00)
DX: K22.2 Esophageal obstruction (principal); Z12.11 Encounter for screening for malignant neoplasm of colon; Z86.010 Personal history of colon polyps; K44.9 Diaphragmatic hernia without obstruction or gangrene; K29.80 Duodenitis without bleeding; K31.9 Disease of stomach and duodenum, unspecified; D12.8 Benign neoplasm of rectum; E11.9 Type 2 diabetes mellitus without complications
CPT/HCPCS: 43239; 43249; 45385; 82962; 88305; C1726; J2704

== ENCOUNTER → 2023-02-14 23:31 | Outpatient (CLI) | payer MEDICARE, MEDICAID, SELFPAY ==
[2023-02-14 18:59] LABS: Basophils % 0.5 % (0.1-2.0); Eosinophils # 0.2 K/mm3 (0.0-0.4); Eosinophils % 2.1 % (0.1-12.0); Hematocrit 45.9 % (37.0-47.0); Hemoglobin 14.2 g/dL (12.2-16.2); Lymphocytes # 2.1 K/mm3 (0.7-4.5); Lymphocytes % 24.2 % (10-50); Mean Corpuscular HGB Conc 30.9 g/dL (31.8-35.4); Mean Corpuscular Hemoglobin 28.9 pg (27.0-31.2); Mean Corpuscular Volume 93.7 fl (81-99); Mean Platelet Volume 8.4 fl (7.4-10.4); Monocytes # 0.5 K/mm3 (0.1-1.0); Monocytes % 5.6 % (1.7-9.3); Neutrophils # 5.7 K/mm3 (1.8-7.8); Neutrophils % 67.5 % (37.0-80.0); Platelet Count 335 K/mm3 (142-424); Red Cell Distribution Width 13.5 % (11.5-17.5); White Blood Count 8.4 K/mm3 (4.8-10.8)
[2023-02-14 19:24] LABS: Alanine Aminotransferase 35 U/L (12-78); Albumin Level 3.7 g/dl (3.5-5.0); Albumin/Globulin Ratio 1.2 (1.1-1.8); Alkaline Phosphatase 91 U/L (38-126); Anion Gap 12.5 mEq/L (5-15); Aspartate Amino Transferase 28 U/L (14-36); Bilirubin,Total 0.2 mg/dl (0.2-1.3); Blood Urea Nitrogen 30 mg/dl (7-17); Calcium 9.2 mg/dl (8.4-10.2); Carbon Dioxide 33 mmol/L (22.0-30.0); Chloride 100 mmol/L (98-107); Chol/HDL Ratio 3.1 (1-3.5); Cholesterol 214 mg/dl (140-200); Estimated Glomerular Filt Rate 45 ml/min (>60); GFR (African American) 54 ML/MIN (>60); Globulin 3.2 g/dL (1.3-3.2); Glucose 148 mg/dl (74-100); HDL Cholesterol 68 mg/dl (40-60); Potassium 4.5 mmoL/L (3.5-5.1); Sodium 141 mmol/L (136-145); Total Protein,Serum 6.9 g/dl (6.3-8.2); Triglycerides 179 mg/dl (30-150); VLDL Cholesterol 36 mg/dL (0-40)
[2023-02-14 19:35] LABS: Direct LDL Cholesterol 100.81 mg/dL (100-129)
[2023-02-14 19:38] LABS: Total Iron Binding Capacity 413 ug/dL (265-497)
[2023-02-14 19:43] LABS: 25-OH Vitamin D, Total 38.3 ng/mL (30-100)
[2023-02-14 19:46] LABS: Hemoglobin A1C 9.4 % (4.0-6.0)
[2023-02-14 19:55] LABS: Thyroid Stimulating Hormone 2.85 uIU/mL (0.465-4.68)
[2023-02-14 19:59] LABS: Iron 67 ug/dL (37-170)
[2023-02-14 20:15] LABS: Vitamin B12 692 pg/mL (239-931)
== END ==
PROVIDERS: PCP Physician Assistant; Visit Provider Physician Assistant
DX: E11.42 Type 2 diabetes mellitus with diabetic polyneuropathy (principal); E55.9 Vitamin D deficiency, unspecified
CPT/HCPCS: 80053; 80061; 82306; 82607; 82728; 83036; 83540; 83550; 84443; 85025

== ENCOUNTER → 2023-03-07 10:43 | Outpatient (CLI) | payer MEDICARE, MEDICAID, SELFPAY ==
[2023-03-07 13:10] LABS: Ferritin 28.6 ng/ml (11.1-264)
== END ==
PROVIDERS: PCP Physician Assistant; Visit Provider Specialist
DX: E11.8 Type 2 diabetes mellitus with unspecified complications (principal); Z79.84 Long term (current) use of oral hypoglycemic drugs
CPT/HCPCS: 36415; 82728

== ENCOUNTER → 2023-04-24 12:00 | Outpatient (CLI) | payer MEDICARE, MEDICAID, SELFPAY | PROVIDERS: PCP Nurse Practitioner Family; Visit Provider Nurse Practitioner Family | DX: Z20.818 Contact with and (suspected) exposure to other bacterial communicable diseases (principal); J02.9 Acute pharyngitis, unspecified; B95.0 Streptococcus, group A, as the cause of diseases classified elsewhere | CPT/HCPCS: 87070 ==

== ENCOUNTER → 2023-06-03 10:09 | Outpatient (POV) | payer MEDICARE, MEDICAID, SELFPAY ==
--- NOTE | 2023-06-03 10:28 | EXP.PAIN.SOA ---
[facility] Pain Management SOAP Note Subjective:: Patient is a pleasant 67-year-old female who presents today for follow-up. We are currently treating the patient for degenerative disc disease of the lumbar spine with lumbar facet arthropathy, lumbar spondylosis. Today she rates her pain a 8 out of 10. Patient does state that she continues to have low back pain and denies any radiating symptoms into her legs. Patient does describe this is an aching, throbbing sensation that is worse with increased activity such as bending, twisting or lifting. Patient does state the pain interferes with her ability perform activities of daily living such as cooking and cleaning. Patient was going to be scheduled for a lumbar medial branch block however she was unable to come off her blood thinner at that time. Patient does have a cardiac stent and is managed by Dr. Albright's office. Patient would like to proceed forward with trying this injection. Patient has tried eoyo-riu-lfzarmm medications such as Tylenol along with heat and ice and topicals with minimal improvement. She is currently managed with horizant er [address] Burnett's office. Patient denies any side effects from this medication. Patient states she did not notice significant improvement with the compounded cream. Her Marco A has been reviewed and is appropriate. Review of Systems: General: No recent weight changes, no fever, no sleep disturbances Respiratory: No cough, no shortness of air, no recurring pulmonary infections Cardiovascular/peripheral vascular: No chest pain, no palpitations, no edema, no shortness of breath Gastrointestinal: No new onset incontinence, normal bowel movements reported Genitourinary: No new onset incontinence Musculoskeletal: Low back pain Psychiatric: [Normal mood/affect] Neurological: [Denies weakness in extremities], [denies balance issues] Objective:: Physical Exam: General: Alert and oriented x3, no acute distress, pleasant and cooperative Lungs: Respirations even and unlabored, symmetrical chest expansion Eyes: PERRL Musculoskeletal: Flexion and extension of lumbar [spine] somewhat guarded secondary to pain, [antalgic gait noted] positive Kemps test Neurological: Speech clear, no gross sensory deficit Assessment:: Degenerative disc disease of lumbar spine with lumbar facet arthropathy, lumbar spondylosis Plan:: Patient is experiencing significant pain in her low back with limited range of motion of her lumbar spine. Patient did have a positive Kemps test during today's exam. I have discussed with the patient that she may benefit from a lumbar medial branch block. Risk and benefits were discussed with the patient and she would like to proceed forward with this plan of care. Patient is currently on blood thinner prescribed by Dr. Albright's office. I have counseled the patient that she will have to stop this medication prior to this injection. We will reach out to Dr. Albright's office and confirm that she can stop this medication prior to the injection. Patient will be scheduled for a lumbar medial branch block bilaterally L4-L5 and L5-S1 under fluoroscopic guidance. Patient has been instructed to contact the clinic with any concerns before the next appointment. Dr. Bryant has reviewed this note and agrees with this plan of care. This note was dictated using voice recognition software and make contain errors or omissions. [facility] Disclaimer: The information contained in this section may have been updated after the patient was seen, as this information can be updated by other users. Medical History Allergic rhinitis Anxiety Bilateral impacted cerumen Breast cyst left removed COPD (chronic obstructive pulmonary disease) Dermoid cyst of head removed Diabetes mellitus, type 2 Dizziness Ear itching Ganglion cyst left wrist GERD (gastroesophageal reflux disease) HTN (hypertension) Moderate mitral regurgitation Mood disorder Neck pain Neuropathy Obesity TOMAS (obstructive sleep apnea) Restless leg syndrome Most likely secondary RLS in a patient with poorly controlled diabetes mellitus and peripheral neuropathy. She has signs and symptoms suggestive of augmentation, (worsening of RLS despite of increasing doses dopamine agonist and most recently carbidopa/levodopa). Vomiting Surgical History History of cholecystectomy History of colonoscopy History of hysterectomy Status post trigger finger release Family History Other Family history of Alzheimer's disease Family history of myocardial infarction Social History Smoking Status: Former smoker tobacco type: cigarettes packs per day: 1 second hand exposure: Yes alcohol intake: never counseling provided: provider counseling substance use type: denies use current occupational status: retired Travel in the last 8 weeks: None household members: children housing: house lives independently: Yes marital status: legally education level: high school current occupational exposures/hazards: No caffeine: Yes special lex needs: No agree to transfusion: No do you feel safe at home: Yes victim of physical abuse: No victim of emotional abuse: No victim of sexual abuse: No would you like helpful sources: No
[2023-06-03 10:53] VITALS: BP 146/76; PULSE 68; RESP 18; O2SAT 92; BMI 43.2
== END ==
LOC: SC.PAIN 10:10
PROVIDERS: PCP Physician Assistant; Visit Provider Nurse Practitioner Family
DX: M51.36 Other intervertebral disc degeneration, lumbar region (principal); M47.816 Spondylosis without myelopathy or radiculopathy, lumbar region; Z79.01 Long term (current) use of anticoagulants
CPT/HCPCS: 99212; G0463

== ENCOUNTER 2023-06-25 09:42 | Day surgery (SDC) | payer MEDICARE, MEDICAID, SELFPAY ==
[2023-06-25 10:20] VITALS: BP 132/68; PULSE 76; RESP 16; TEMP 36.2; O2SAT 93; BMI 43.6
[2023-06-25] MEDS: BUPIVACAINE 0.25% 10ML INJ 25 MG IJ (10:23)
[2023-06-25] MEDS: LIDOCAINE 1% 5ML PF VIAL 5 ML (10:23)
[2023-06-25] MEDS: methylPREDNISolone ACETATE 80MG/ML VIAL 80 MG (10:23)
[2023-06-25 10:24] VITALS: BP 125/75; PULSE 68; RESP 18; O2SAT 91
[2023-06-25 10:25] VITALS: BP 125/75; PULSE 68; RESP 18; O2SAT 91
[2023-06-25 10:30] VITALS: BP 177/86; PULSE 71; RESP 16; O2SAT 93
--- NOTE | 2023-06-25 10:47 | EXP.PAIN.PRO ---
Procedure Date: 06/25/23 Time: 10:00 Anesthesiologist:: Paulino Amador CRNA Complications:: None Pre-procedure Diagnosis:: Degenerative disc lumbar spine multilevels. Lumbar radiculopathy. Lumbar spondylosis. Multilevel lumbar facet arthropathy. Post-procedure Diagnosis:: Same. Indications for Procedure:: /Patient is a very pleasant 68-year-old female comes our clinic today for bilateral L4-5, L5-S1 medial branch blocks/facet injections patient reports low back pain that she describes as constant, dull, aching. She rates her pain 7/10. Patient has difficulty with flexion, extension, left and right rotation. Standing for any length of time increases low lumbar back pain significantly Procedure Details:: Informed consent was obtained and the risk and benefits of the procedure was explained to the patient. Patient was taken to the procedure room where noninvasive monitors were placed, including noninvasive blood pressure cuff as well as pulse oximeter. The area over the lumbar spine was cleansed using chlorhexidine as a cleansing solution. I anesthetized the skin and subcutaneous tissues with 1% Lidocaine. I placed 22-gauge spinal needles into the facet joint/ medial branches of [L3-L4, L4-L5, and L5-S1] bilaterally. Needle placement was confirmed with fluoroscopy. After confirmation of needle placement, each site was injected with 1 mL of 1% lidocaine and 0.25 % Marcaine and 10 mg of Depo-Medrol. A total of 80 mg of depo medrol was used for bilateral medial branch blocks of [L3-L4, L4-L5, and L5-S1] bilaterally. Patient tolerated the procedure without difficulty. There were no complications. Plan and Disposition:: Patient was discharged without incident.
== END 2023-06-25 10:30 | disposition home or self-care (01) ==
LOC: SC.PAINP 09:43
PROVIDERS: PCP Physician Assistant; Visit Provider Nurse Anesthetist, Certified Registered
DX: M47.896 Other spondylosis, lumbar region (principal); M51.16 Intervertebral disc disorders with radiculopathy, lumbar region
CPT/HCPCS: 64493; 64494; J1040

== ENCOUNTER 2023-07-01 12:54 | Outpatient (CLI) | payer MEDICARE, MEDICAID, SELFPAY ==
[2023-07-01 13:09] LABS: Chloride 100 mmol/L (98-107); Potassium 5.1 mmoL/L (3.5-5.1); Sodium 139 mmol/L (136-145)
[2023-07-01 13:12] LABS: Alanine Aminotransferase 22 U/L (12-78); Albumin Level 3.8 g/dl (3.5-5.0); Albumin/Globulin Ratio 1.2 (1.1-1.8); Alkaline Phosphatase 149 U/L (38-126); Anion Gap 10.1 mEq/L (5-15); Aspartate Amino Transferase 22 U/L (14-36); Basophils % 0.3 % (0.1-2.0); Bilirubin,Total 0.6 mg/dl (0.2-1.3); Blood Urea Nitrogen 23 mg/dl (7-17); Calcium 9.2 mg/dl (8.4-10.2); Carbon Dioxide 34 mmol/L (22.0-30.0); Chol/HDL Ratio 2.9 (1-3.5); Cholesterol 187 mg/dl (140-200); Eosinophils # 0.1 K/mm3 (0.0-0.4); Eosinophils % 1.1 % (0.1-12.0); Estimated Glomerular Filt Rate 55 ml/min (>60); GFR (African American) 66 ML/MIN (>60); Globulin 3.1 g/dL (1.3-3.2); Glucose 110 mg/dl (74-100); HDL Cholesterol 64 mg/dl (40-60); Hematocrit 47.3 % (37.0-47.0); Hemoglobin 15.2 g/dL (12.2-16.2); Lymphocytes # 2.1 K/mm3 (0.7-4.5); Mean Corpuscular HGB Conc 32.2 g/dL (31.8-35.4); Mean Corpuscular Hemoglobin 30.3 pg (27.0-31.2); Mean Corpuscular Volume 94.2 fl (81-99); Mean Platelet Volume 8.2 fl (7.4-10.4); Monocytes # 0.6 K/mm3 (0.1-1.0); Monocytes % 5.2 % (1.7-9.3); Neutrophils # 7.7 K/mm3 (1.8-7.8); Neutrophils % 73.4 % (37.0-80.0); Platelet Count 263 K/mm3 (142-424); Red Blood Count 5.02 M/mm3 (4.20-5.40); Total Protein,Serum 6.9 g/dl (6.3-8.2); Triglycerides 119 mg/dl (30-150); VLDL Cholesterol 24 mg/dL (0-40); White Blood Count 10.5 K/mm3 (4.8-10.8)
[2023-07-01 13:34] LABS: 25-OH Vitamin D, Total 27.7 ng/mL (30-100)
[2023-07-01 13:44] LABS: Direct LDL Cholesterol 81.73 mg/dL (100-129)
[2023-07-01 14:03] LABS: Thyroid Stimulating Hormone 1.58 uIU/mL (0.465-4.68)
[2023-07-01 16:48] LABS: C-Reactive Protein 63.6 mg/L (0-4)
[2023-07-02 11:24] LABS: RA Latex Turbid. 13.4 IU/mL (<14.0)
== END 2023-07-01 23:59 ==
LOC: LAB.DROPOF 12:54
PROVIDERS: PCP Physician Assistant; Visit Provider Physician Assistant
DX: E55.9 Vitamin D deficiency, unspecified (principal); E11.9 Type 2 diabetes mellitus without complications; Z68.41 Body mass index [BMI] 40.0-44.9, adult; Z79.4 Long term (current) use of insulin; Z79.85 Long-term (current) use of injectable non-insulin antidiabetic drugs
CPT/HCPCS: 80053; 80061; 82306; 83036; 84443; 85025; 86140; 86431

== ENCOUNTER 2023-07-03 09:14 | Outpatient (CLI) | payer MEDICARE, MEDICAID, SELFPAY ==
--- NOTE | 2023-07-03 09:14 | US_ITS ---
FINAL REPORT CLINICAL HISTORY: I20.9 - Angina pectoris, unspecified COMPARISON: None FINDINGS: RENAL ULTRASOUND: The right kidney measures 10.6 cm in length, without evidence of hydronephrosis or focal mass. The left kidney measures 11.7 cm in length, without evidence of hydronephrosis or focal mass. No perinephric fluid collections are identified. IMPRESSION: Unremarkable renal ultrasound. Reviewed, Interpreted and Dictated by Don Ortiz III, MD Transcribed by Alla Burciaga Authenticated and [facility]
--- NOTE | 2023-07-03 09:30 | CA_ITS ---
FINAL REPORT TECHNIQUE: Grayscale, color Doppler and duplex Doppler ultrasound of the kidneys, aorta and renal arteries was performed. Multiple velocities were measured. CLINICAL HISTORY: HTN,OBESITY COMPARISON: None FINDINGS: Aorta velocity: 107 cm/sec Right kidney: 10.9 cm. No evidence of hydronephrosis or mass. Right intrarenal RI: 0.71-0.79 Right renal artery velocity: 173 cm/sec. Right RAR (Renal artery-Aortic Ratio): 1.62 Left Kidney: 12.1 cm. No evidence of hydronephrosis or mass. Left intrarenal RI: 0.62-0.76 Left renal artery velocity: 273 cm/sec. Left RAR (Renal Artery-Aortic Ratio): 2.55 IMPRESSION: No evidence of significant renal artery stenosis on the right. Less than 60% renal artery stenosis on the left. Recommend CTA or catheter angiography to better evaluate. Reviewed, Interpreted and Dictated by Don Ortiz III, MD Transcribed by Jimena Ordonez Authenticated and [facility]
== END 2023-07-03 23:59 ==
LOC: RAD 09:14
PROVIDERS: PCP Physician Assistant; Visit Provider Physician Assistant
DX: I10 Essential (primary) hypertension (principal); I20.89 Other forms of angina pectoris
CPT/HCPCS: 76770; 93976

== ENCOUNTER 2023-07-11 07:36 | Outpatient (CLI) | payer MEDICARE, MEDICAID, SELFPAY ==
--- NOTE | 2023-07-11 07:37 | NM_ITS ---
APPROVED REPORT Exam: Nuclear Stress Test Indication: CHEST PAIN Patient Location: Outpatient Stress Tech: Margy FORD Tech:Dalia Drew VUKamari RT(R)(N) Ht: 5 ft 5 in Wt: 260 lbs Bra Size: 42C HR: 73 bpm BP: 148/73 mmHg BSA: 2.21 m2 Rhythm: NSR TID: 1.06 BMI: 43.2 Procedure: Patient received 0.4 mg of intravenous Lexiscan, resting heart rate 73 bpm, resting blood pressure 148/73 mmHg, with Lexiscan maximum heart rate achieved was 83 bpm which is 85 % of the maximum predicted heart rate and blood pressure was 155/74 mmHg. With Lexiscan, patient denied any complaint of chest pain. Cardiac Stress and Resting SPECT Images: Cardiac Stress and Resting SPECT images were obtained using technetium 99m Myoview 32.8 mCi stress and 10.82 mCi at rest. Resting and stress imaging in supine and prone positions demonstrate no evidence of fixed or reversible perfusion defects. Gated imaging demonstrates normal global and regional LV systolic function. LVEF is calculated at 61%. Conclusion: No evidence of fixed or reversible perfusion defects. Gated imaging demonstrates normal global and regional LV systolic function. LVEF is calculated at 61%. Electronically signed by : Maryuri Wills MD 07/14/2023 02:24:16
--- NOTE | 2023-07-11 07:53 | CA_ITS ---
APPROVED REPORT EXAM: Comprehensive 2D, Doppler, and color-flow Echocardiogram Public Speaking Instructor: Alexandria Contreras CRT Ht: 5 ft 5 in Wt: 270lbs BSA: 2.25 BP: 160/90 mmHg Indications: Chest Pain, Atrial Fibrillation, Diabetes, CAD, Hyperlipidemia, Hypertension/HDD 2D Dimensions LA Volume 37.20 mL LA Volume Index 16.20 mL/m2 (M/F) 16-34 M-Mode Dimensions RVDd 2.74 cm (0.9-2.6) LA Diam 4.30 cm (1.9-4.0) LVDd 4.12 cm (3.5-5.7) LVDs 2.91 cm (3.5-5.7) IVSd 1.53 cm (0.6-1.1) PWd 0.93 cm (0.6-1.1) EF (Teich) 56.70% FS 29.40% EDV (Teich) 75.10 mL TAPSE 2.66 (<1.7) ESV (Teich) 32.50 mL LV Diastology E Decel Time 240 (160-240 msec) E/A Ratio 0.84 MED A' 5.20 cm/s LAT A' 11.00 cm/s Aortic Valve AO Peak GR. 11.20 mmHg Mitral Valve MV A Velocity 99.0 (40-130 cm/s) E/A Ratio 0.84 Pulmonary Valve PV Peak Velocity 107.0 (50-150 cm/s) Tricuspid Valve TR P. Velocity 256.00 cm/s RAP Estimate 10.00 mmHg RVSP 36.30 mmHg Left Ventricle The left ventricle is normal size. The left ventricular systolic function is normal. The left ventricular ejection fraction is within the normal range. There is increased LV wall thickness. There is normal LV segmental wall motion. Grade 2 diastolic dysfunction is present. LVEF is 55%. Right Ventricle The right ventricle is normal size. The right ventricular systolic function is normal. Atria The left atrium is mildly dilated. The right atrium size is normal. There is no Doppler evidence of interatrial shunt. Aortic Valve The aortic valve is mildly thickened. There is no aortic valvular stenosis. Trace aortic regurgitation. Mitral Valve Moderate mitral annular calcification. The mitral valve leaflets are mildly thickened. No evidence of mitral valve stenosis. Mean MV gradient 4 mmHg (HR 77 bpm). Moderate mitral regurgitation. Tricuspid Valve The tricuspid valve leaflets are thin and pliable. Trace tricuspid regurgitation. RVSP is 25 - 30 mmHg. Pulmonic Valve The pulmonary valve is normal in structure. Mild pulmonic regurgitation. Great Vessels The aortic root is normal in size. The ascending aorta is normal in size. IVC is normal in size and collapses >50% with inspiration. Pericardium There is no pericardial effusion. Other Information Study Quality: Fair Conclusion Normal biventricular systolic function. Grade 2 diastolic dysfunction. Mild LA dilation. Moderate MR. Mild PI. Electronically signed by : Maryuri Wills MD 07/14/2023 00:37:52
--- NOTE | 2023-07-11 09:22 | CA_ITS ---
APPROVED REPORT Exam: Pharmacologic Technologist: Margy Bravo, Ht: 5 ft 5 in Wt: 262 lbs BSA: 2.22 m2 HR: 72 bpm BP: 148/73 mmHg Rhythm: NSR Medical History Medications: Flecainide,,,,, Gabapentin,,,,, Flonase,,,,, Buspirone,,,,, Farxiga,,,,, Albuterol,,,,, CloPIdogrel,,,,, Famotidine,,,,, Dexilant,,,,, Cyclobenzaprine,,,,, Evolocumab,,,,, Furosemide,,,,, Stress Test Details Test: LEXISCAN Reason for pharmacologic stress test: physical limitation. HR Resting HR: 73 bpm Max Heart Rate (APMHR): 150 bpm Max HR Achieved: 83 bpm Target HR (85% APMHR): 128 bpm % of APMHR: 55 Recovery HR: 77 bpm BP Resting BP: 148.0/73.0 mmHg Max BP: 155.0/74.0 mmHg Recovery BP: 155.0/74.0 mmHg ECG Resting ECG: NSR, first-degree AV block Stress ECG: No significant ST changes Arrhythmia: None Clinical Exercise duration: 04:01 min Highest Stage Achieved: Stress ECG Conclusion Symptoms: SOA, head discomfort. No CP. Arrhythmias/Ectopy: None ST-T Changes: No significant ST changes. Conclusion: Unremarkable Lexiscan stress. Myoview images reported separately. Test Summary REST . . . . . . . Resting REST . . . . . . . Resting REST 06:26 . . 73 . 148/ 73 . . Stage 1 01:00 . . 75 . . . . Stage 2 01:00 . . 77 . 142/ 67 . . Stage 3 01:00 . . 77 . 144/ 67 . . Stage 4 01:00 . . 78 . 140/ 65 . . Stage 4 01:01 . . 79 . 140/ 65 . Stop exercise at 04:01 RECOVERY 01:00 . . 79 . . . . RECOVERY 02:00 . . 78 . 149/ 77 . . RECOVERY 03:00 . . 77 . 155/ 74 . . RECOVERY 03:22 . . 78 . 155/ 74 . . Electronically signed by : Maryuri Wills MD 07/14/2023 02:21:55
[2023-07-11] MEDS: REGADENOSON 0.4MG/5ML SYRINGE 0.400000000000000022 MG IV (10:28)
[2023-07-11] MEDS: SODIUM CHLORIDE 0.9% 10ML SYR (RAD ONLY) 10 ML IV ×2 (10:28)
[2023-07-11] MEDS: ISOTOPE MYOVIEW (PER STUDY) 1 DOSE IV (10:28)
== END 2023-07-11 23:59 ==
LOC: RAD 07:37
PROVIDERS: PCP Physician Assistant; Visit Provider Physician Assistant
DX: I10 Essential (primary) hypertension; I20.89 Other forms of angina pectoris; Z79.899 Other long term (current) drug therapy
CPT/HCPCS: 78452; 93017; 93018; 93306; A9502; J2785

== ENCOUNTER 2023-07-12 10:02 | Outpatient (POV) | payer MEDICARE, MEDICAID, SELFPAY ==
--- NOTE | 2023-07-12 10:06 | A.OFFVIS_ITS ---
[facility] Pain Management SOAP Note Subjective:: Patient is a pleasant 67-year-old female who presents today for follow-up her first lumbar medial branch block bilaterally L4-L5 and L5-S1 on 06/25/2023. We are currently treating the patient for degenerative disc disease of the lumbar spine with lumbar facet arthropathy, lumbar spondylosis. Today she rates her pain a 1 out of 10. She denies any new trauma or injury. Patient does state that she had at least 75% relief lasting for a good 2 weeks. Patient states that she still feels like it is continuing to help and has made it more manageable. Patient does state that earlier in the week she did have to do some testing which put her in awkward positioning they are on her left side so she did have more pain at that time. She states however she was able to move around afterwards and the pain did relief. Patient states overall that this is much better than what she had been prior and she feels overall more functional. She is currently managed with horizant er [address] Burnett's office. Patient denies any side effects from this medication. She has tried cream in the past with minimal improvement. Her Marco A has been reviewed and is appropriate. Review of Systems: General: No recent weight changes, no fever, no sleep disturbances Respiratory: No cough, no shortness of air, no recurring pulmonary infections Cardiovascular/peripheral vascular: No chest pain, no palpitations, no edema, no shortness of breath Gastrointestinal: No new onset incontinence, normal bowel movements reported Genitourinary: No new onset incontinence Musculoskeletal: Low back pain Psychiatric: [Normal mood/affect] Neurological: [Denies weakness in extremities], [denies balance issues] Objective:: Physical Exam: General: Alert and oriented x3, no acute distress, pleasant and cooperative Lungs: Respirations even and unlabored, symmetrical chest expansion Eyes: PERRL Musculoskeletal: Flexion and extension of lumbar [spine] somewhat guarded secondary to pain, [antalgic gait noted] positive Kemps test Neurological: Speech clear, no gross sensory deficit Assessment:: Degenerative disc disease of lumbar spine with lumbar facet arthropathy, lumbar spondylosis Plan:: Patient has had significant improvement in her low back symptoms following her lumbar medial branch block. I have discussed with the patient that sometimes these injections can wax and wane on improvements in send she is still feeling very manageable at this time we will hold off on any additional injections currently. I have counseled the patient that she can always still try her compounded cream there along the left side where she does notice occasional pain. Patient acknowledges understanding of this. Patient will return to clinic in 1 month for reevaluation of symptoms and plan of care. Patient has been instructed to contact the clinic with any concerns before the next appointment. Dr. Bryant has reviewed this note and agrees with this plan of care. This note was dictated using voice recognition software and make contain errors or omissions. [facility] Disclaimer: The information contained in this section may have been updated after the patient was seen, as this information can be updated by other users. Medical History Allergic rhinitis Anxiety Bilateral impacted cerumen Breast cyst left removed COPD (chronic obstructive pulmonary disease) Dermoid cyst of head removed Diabetes mellitus, type 2 Dizziness Ear itching Ganglion cyst left wrist GERD (gastroesophageal reflux disease) HTN (hypertension) Labile essential hypertension Moderate mitral regurgitation Mood disorder Neck pain Neuropathy Obesity TOMAS (obstructive sleep apnea) Restless leg syndrome Most likely secondary RLS in a patient with poorly controlled diabetes mellitus and peripheral neuropathy. She has signs and symptoms suggestive of augmentation, (worsening of RLS despite of increasing doses dopamine agonist and most recently carbidopa/levodopa). Vomiting Surgical History History of cholecystectomy History of colonoscopy History of hysterectomy Status post trigger finger release Family History Other Family history of Alzheimer's disease Family history of myocardial infarction Social History Smoking Status: Former smoker tobacco type: cigarettes packs per day: 1 second hand exposure: Yes alcohol intake: never counseling provided: provider counseling substance use type: denies use current occupational status: retired Travel in the last 8 weeks: None household members: children housing: house lives independently: Yes marital status: legally education level: high school current occupational exposures/hazards: No caffeine: Yes special lex needs: No agree to transfusion: No do you feel safe at home: Yes victim of physical abuse: No victim of emotional abuse: No victim of sexual abuse: No would you like helpful sources: No
[2023-07-12 10:29] VITALS: BP 175/86; PULSE 77; RESP 18; O2SAT 96; BMI 42.3
[2023-07-12 11:34] LABS: Erythrocyte Sedimentation Rate 54 mm/hr (0-30)
[2023-07-13 05:57] LABS: RA Latex Turbid. <10.0 IU/mL (<14.0)
[2023-07-13 16:35] LABS: Anti-Cyclic Citrullinated Pept 0 units (0-19)
[2023-07-15 14:10] LABS: Lupus Reflex Interpretation Comment: (.); PTT-LA 34.3 sec (0.0-43.5); dRVVT 49.3 sec (0.0-47.0); dRVVT Confirm 1.2 ratio (0.8-1.2); dRVVT Mix 42.1 sec (0.0-40.4)
[2023-07-15 15:11] LABS: Anti-Centromere B Antibodies <0.2 AI (0.0-0.9); Anti-DNA (DS) Ab Qn 5 IU/mL (0-9); Anti-Jo-1 <0.2 AI (0.0-0.9); Anti-Smith Antibody <0.2 AI (0.0-0.9); Antichromatin Antibodies <0.2 AI (0.0-0.9); Antiscleroderma-70 Antibodies <0.2 AI (0.0-0.9); RNP Antibodies <0.2 AI (0.0-0.9); Sjogren's Anti-SS-A <0.2 AI (0.0-0.9); Sjogren's Anti-SS-B <0.2 AI (0.0-0.9)
== END 2023-07-12 23:59 ==
LOC: SC.PAIN 10:03
PROVIDERS: PCP Physician Assistant; Visit Provider Nurse Practitioner Family
DX: M25.50 Pain in unspecified joint (principal); R82.90 Unspecified abnormal findings in urine; M51.36 Other intervertebral disc degeneration, lumbar region; M47.816 Spondylosis without myelopathy or radiculopathy, lumbar region
CPT/HCPCS: 36415; 85613; 85651; 86200; 86225; 86235; 86431; 87086; 99212; G0463

== ENCOUNTER 2023-07-12 10:17 | Outpatient (CLI) | payer MEDICARE, MEDICAID, SELFPAY | END 2023-07-12 23:59 | LOC: LAB 10:19 | PROVIDERS: PCP Physician Assistant; Visit Provider Physician Assistant | DX: M51.36 Other intervertebral disc degeneration, lumbar region (principal) ==

== ENCOUNTER 2023-07-19 09:47 | Emergency (ER) | payer MEDICARE, MEDICAID, SELFPAY ==
--- NOTE | 2023-07-19 10:13 | ED_ITS ---
Discharge Plan Disposition Patient Disposition: Home, Self-Care Condition: Good Prescriptions Prescriptions: No Action furosemide 40 mg tablet 80 mg PO .COMPLEX Rx Instructions: 80 mg orally; Ferrimin 150 456 mg (150 mg iron) tablet 456 mg PO DAILY Qty: 30 5RF Rx Instructions: 1 tab po qhs Mounjaro 10 mg/0.5 mL pen injector SQ montelukast 10 mg tablet 10 mg PO DAILY Horizant 600 mg tablet extended release 600 mg PO DAILY Rx Instructions: administer daily at approximately 5 PM with food/evening meal Xarelto 20 mg tablet 20 mg PO DAILY Rx Instructions: must administer with evening meal metoprolol succinate 25 mg tablet extended release 24 hr 25 mg PO DAILY Qty: 90 3RF losartan 50 mg tablet 50 mg PO DAILY Qty: 100 2RF isosorbide mononitrate 30 mg tablet extended release 24 hr 30 mg PO DAILY Qty: 30 2RF Repatha SureClick 140 mg/mL pen injector 140 mg SQ Q2W Qty: 2 2RF cyclobenzaprine 10 mg tablet 10 mg PO TID PRN (Reason: muscle spasm) Qty: 60 0RF diclofenac sodium [Arthritis Pain (diclofenac)] 1 % gel 2 g topical QID Qty: 100 2RF Rx Instructions: apply to single elbow, wrist or hand; for hand includes palm/fingers/back of hand prednisone 20 mg tablet 20 mg PO BID Qty: 10 0RF Rx Instructions: administer with food or milk triamcinolone acetonide 0.025 % lotion 1 applic topical BID Qty: 60 0RF sertraline 100 mg tablet See Rx Instructions .ROUTE .COMPLEX Qty: 90 3RF Rx Instructions: TAKE 1 TABLET BY MOUTH AT BEDTIME FOR DEPRESSION; flecainide 100 mg tablet See Rx Instructions .ROUTE .COMPLEX Qty: 180 3RF Rx Instructions: TAKE 1 TABLET BY MOUTH EVERY 12 HOURS famotidine 20 mg tablet See Rx Instructions .ROUTE .COMPLEX Qty: 90 3RF Rx Instructions: TAKE 1 TABLET BY MOUTH AT BEDTIME Xarelto 20 mg tablet See Rx Instructions .ROUTE .COMPLEX Qty: 90 3RF Dose Instruction: TAKE 1 TABLET BY MOUTH DAILY FOR BLOOD THINNER Rx Instructions: TAKE 1 TABLET BY MOUTH DAILY FOR BLOOD THINNER bupropion HCl 150 mg tablet sustained-release 12 hr See Rx Instructions .ROUTE .COMPLEX Qty: 180 3RF Dose Instruction: TAKE 1 TABLET BY MOUTH TWICE DAILY FOR MOOD Rx Instructions: TAKE 1 TABLET BY MOUTH TWICE DAILY FOR MOOD dexlansoprazole [Dexilant] 60 mg capsule,biphase delayed releas See Rx Instructions .ROUTE .COMPLEX Qty: 90 3RF Dose Instruction: TAKE 1 CAPSULE BY MOUTH ONCE DAILY FOR STOMACH Rx Instructions: TAKE 1 CAPSULE BY MOUTH ONCE DAILY FOR STOMACH clopidogrel 75 mg tablet See Rx Instructions .ROUTE .COMPLEX Qty: 100 3RF Hold Instructions: Resume on 01/10/23. Rx Instructions: TAKE 1 TABLET BY MOUTH ONCE DAILY memantine 7 mg capsule,sprinkle,ER 24hr See Rx Instructions .ROUTE .COMPLEX Qty: 90 3RF Dose Instruction: TAKE 1 CAPSULE BY MOUTH ONCE DAILY Rx Instructions: TAKE 1 CAPSULE BY MOUTH ONCE DAILY Farxiga 10 mg tablet See Rx Instructions .ROUTE .COMPLEX Qty: 90 0RF Dose Instruction: Take 1 tablet by mouth once daily Rx Instructions: Take 1 tablet by mouth once daily meclizine 25 mg tablet See Rx Instructions .ROUTE .COMPLEX Qty: 90 0RF Dose Instruction: TAKE 1 TABLET BY MOUTH 3 TIMES DAILY NEEDED FOR DIZZINESS Rx Instructions: TAKE 1 TABLET BY MOUTH 3 TIMES DAILY NEEDED FOR DIZZINESS fluticasone propionate 50 mcg/actuation spray,suspension See Rx Instructions .ROUTE .COMPLEX Qty: 48 0RF Dose Instruction: USE 2 SPRAYS IN BOTH NOSTRILS DAILY FOR BREATHING PROBLEMS Rx Instructions: USE 2 SPRAYS IN BOTH NOSTRILS DAILY FOR BREATHING PROBLEMS insulin lispro 100 unit/mL insulin pen 1 sliding scale dose SQ QAC Patient Comments: 125-150 6 units 150-200 8 units over 200 10 units insulin degludec [Tresiba FlexTouch U-100] 100 unit/mL (3 mL) insulin pen 75 unit SQ HS (DME) pen needle, diabetic [BD Ultra-Fine Mini Pen Needle] 31 gauge x 3/16 needle See Rx Instructions .ROUTE .COMPLEX Qty: 100 0RF Dose Instruction: USE THREE TIMES DAILY DIRECTED FOR DIABETES Rx Instructions: USE THREE TIMES DAILY DIRECTED FOR DIABETES ropinirole 4 mg tablet See Rx Instructions .ROUTE .COMPLEX Qty: 180 3RF Dose Instruction: TAKE 1 TABLET BY MOUTH TWICE DAILY FOR LEGS Rx Instructions: TAKE 1 TABLET BY MOUTH TWICE DAILY FOR LEGS albuterol sulfate 1.25 mg/3 mL solution for nebulization 1.25 mg INHALATION QID PRN (Reason: shortness of breath or wheezing) Qty: 90 0RF ergocalciferol (vitamin D2) 1,250 mcg (50,000 unit) capsule 1,250 mcg PO WEEKLY Qty: 14 3RF cholecalciferol (vitamin D3) 50 mcg (2,000 unit) capsule 50 mcg PO DAILY Qty: 90 3RF buspirone 30 mg tablet See Rx Instructions .ROUTE .COMPLEX Rx Instructions: TAKE ONE TABLET BY MOUTH TWICE A DAY *MAY CAUSE DROWSINESS* Referrals Follow up/Referrals: Reva Lou PA [Primary Care Provider] - See instructions Activity Restrictions/Add. Instructions Additional Instructions/Restrictions: Drink plenty of fluids. Eat a bland diet for the next couple of days. Take tylenol for pain or fever. Take the zofran that you have if you continue to have nausea/vomiting. Follow up with your regular doctor. GO TO THE ER FOR ANY WORSENING SYMPTOMS Return a stool sample so it can be analyzed for different infections. Clinical Impressions Clinical Impression: Gastroenteritis Instructions Patient Instructions: Viral Gastroenteritis, DI for Viral Gastroenteritis -- Adult Discharge ED Provider: Corey Degroot [facility] General Stated complaint: vomiting, diarrhea, headache Time Seen by Provider: 07/19/23 10:13 History of Present Illness Provider Complaint: She states that she has had diarrhea since yesterday. During the night she had nausea and vomiting. She last vomited at around 0400 this am. She denies any abdominal pain and fever. She states that she is feeling better now but she is still having diarrhea. Related Data Home Medications Medication Instructions Recorded Confirmed buspirone 30 mg tablet See Rx Instructions .Route 11/28/22 07/17/23 .COMPLEX MOOD furosemide 40 mg tablet 80 mg PO .COMPLEX 03/14/23 07/17/23 insulin degludec 100 unit/mL (3 75 unit SQ HS 03/19/23 07/17/23 mL) subcutaneous pen (Tresiba FlexTouch U-100 insulin) insulin lispro 100 unit/mL 1 sliding scale dose SQ QAC 03/19/23 07/17/23 subcutaneous pen Diabetes gabapentin enacarbil 600 mg 600 mg PO DAILY 07/17/23 07/17/23 tablet,extended release (Horizant ER) montelukast 10 mg tablet 10 mg PO DAILY 07/17/23 07/17/23 rivaroxaban 20 mg tablet (Xarelto) 20 mg PO DAILY 07/17/23 07/17/23 tirzepatide 10 mg/0.5 mL mg SQ 07/17/23 07/17/23 subcutaneous pen injector (Laney) Previous Rx's Medication Instructions Recorded cyclobenzaprine 10 mg tablet 10 mg PO TID PRN muscle spasm #60 05/04/22 tabs sertraline 100 mg tablet See Rx Instructions .Route 11/26/22 .COMPLEX Anxiety #90 tabs flecainide 100 mg tablet See Rx Instructions .Route 11/30/22 .COMPLEX afib #180 tabs famotidine 20 mg tablet See Rx Instructions .Route 01/24/23 .COMPLEX STOMACH #90 tabs rivaroxaban 20 mg tablet (Xarelto) See Rx Instructions .Route 01/24/23 .COMPLEX #90 tabs bupropion HCl 150 mg tablet,12 hr See Rx Instructions .Route 01/28/23 sustained-release .COMPLEX #180 tabs dexlansoprazole 60 mg See Rx Instructions .Route 02/13/23 capsule,biphase delayed release .COMPLEX #90 caps (Dexilant) clopidogrel 75 mg tablet See Rx Instructions .Route 02/14/23 .COMPLEX Blood thinner #100 tabs memantine 7 mg capsule See Rx Instructions .Route 03/06/23 sprinkle,extended release 24hr .COMPLEX #90 caps dapagliflozin propanediol 10 mg See Rx Instructions .Route 03/13/23 tablet (Farxiga) .COMPLEX #90 tabs ferrous fumarate 456 mg (150 mg 456 mg PO DAILY Iron metabolism 03/14/23 iron) tablet (Ferrimin 150) disorder #30 tabs fluticasone propionate 50 See Rx Instructions .Route 03/18/23 mcg/actuation nasal .COMPLEX #48 grams spray,suspension meclizine 25 mg tablet See Rx Instructions .Route 03/18/23 .COMPLEX #90 tabs pen needle, diabetic 31 gauge x #100 ea 03/25/2308/02 (BD Ultra-Fine Mini Pen Needle) ropinirole 4 mg tablet See Rx Instructions .Route 03/26/23 .COMPLEX #180 tabs albuterol sulfate 1.25 mg/3 mL 1.25 mg (3 mL) inhalation QID PRN 06/06/23 solution for nebulization shortness of breath or wheezing #90 mL diclofenac sodium 1 % topical gel 2 g topical QID #100 grams 07/01/23 (Arthritis Pain (diclofenac)) cholecalciferol (vitamin D3) 50 50 mcg PO DAILY #90 caps 07/12/23 mcg (2,000 unit) capsule ergocalciferol (vitamin D2) 1,250 1,250 mcg PO WEEKLY #14 caps 07/12/23 mcg (50,000 unit) capsule prednisone 20 mg tablet 20 mg PO BID #10 tabs 07/16/23 triamcinolone acetonide 0.025 % 1 applic topical BID #60 mL 07/16/23 lotion evolocumab 140 mg/mL subcutaneous 140 mg SQ Q2W #2 mL 07/17/23 pen injector (Anurag Munson) isosorbide mononitrate 30 mg 30 mg PO DAILY #30 tabs 07/17/23 tablet,extended release 24 hr losartan 50 mg tablet 50 mg PO DAILY #100 tabs 07/17/23 metoprolol succinate 25 mg 25 mg PO DAILY #90 tabs 07/17/23 tablet,extended release 24 hr Allergies Allergy/AdvReac Type Severity Reaction Status Date / Time canagliflozin [From Invokana] Allergy Severe blisters Verified 07/17/23 14:57 metformin Allergy Mild Diarrhea, Verified 07/17/23 14:57 nausea, dizziness sitagliptin [From Januvia] Allergy Mild Hives Verified 07/17/23 14:57 linaclotide [From Linzess] Allergy Rash Verified 07/17/23 14:57 metronidazole [From Metrogel] Allergy Rash Verified 07/17/23 14:57 nystatin Allergy Dizziness Verified 07/17/23 14:57 rosuvastatin [From Crestor] Allergy Unknown Verified 07/17/23 14:57 allergy reaction semaglutide [From Ozempic] AdvReac Severe Abdominal Verified 07/17/23 14:57 Pain atorvastatin [From Lipitor] AdvReac Intermediate body aches Verified 07/17/23 14:57 andmental [facility] Dis[facility]: The information contained in this section may have been updated after the patient was seen, as this information can be updated by other users. Medical History Allergic rhinitis Anxiety Bilateral impacted cerumen Breast cyst left removed COPD (chronic obstructive pulmonary disease) Dermoid cyst of head removed Diabetes mellitus, type 2 Dizziness Ear itching Ganglion cyst left wrist GERD (gastroesophageal reflux disease) HTN (hypertension) Labile essential hypertension Moderate mitral regurgitation Mood disorder Neck pain Neuropathy Obesity TOMAS (obstructive sleep apnea) Noncompliant with CPAP. Restless leg syndrome Most likely secondary RLS in a patient with poorly controlled diabetes mellitus and peripheral neuropathy. She has signs and symptoms suggestive of augmentation, (worsening of RLS despite of increasing doses dopamine agonist and most recently carbidopa/levodopa). Vomiting Surgical History History of cholecystectomy History of colonoscopy History of hysterectomy Status post trigger finger release Family History Other Family history of Alzheimer's disease Family history of myocardial infarction Social History Smoking Status: Former smoker tobacco type: cigarettes packs per day: 1 second hand exposure: Yes alcohol intake: never counseling provided: provider counseling substance use type: denies use current occupational status: retired Travel in the last 8 weeks: None household members: children housing: house lives independently: Yes marital status: legally education level: high school current occupational exposures/hazards: No caffeine: Yes special lex needs: No agree to transfusion: No do you feel safe at home: Yes victim of physical abuse: No victim of emotional abuse: No victim of sexual abuse: No would you like helpful sources: No ROS Obtained: Yes All systems reviewed & no additional complaints except as documented Constitutional Constitutional: Denies chills, Denies fever(s) and Reports poor appetite ENT Ears, Nose, Mouth, and Throat: Denies dizziness and Denies sore throat Cardiovascular Cardiovascular: Denies dyspnea Respiratory Respiratory: Denies chest congestion, Denies cough and Denies dyspnea Gastrointestinal Gastrointestingal: Reports as per HPI; Denies abdominal pain, hematochezia or melena Genitourinary Female Genitourinary: Denies difficulty voiding, Denies dysuria, Denies hematuria, Denies urinary frequency, Denies urinary incontinence, Denies urinary hesitancy and Denies urinary urgency Musculoskeletal Musculoskeletal: Denies arthralgias Integumentary/Breasts Skin/Breast: Denies rash Neurologic Neurologic: Denies dizziness Physical Exam General General appearance: alert and in no apparent distress Head Head exam: atraumatic and normocephalic Eye Eye exam: Present normal appearance, PERRL and EOMI ENT ENT exam: Present normal exam, normal oropharynx, mucous membranes moist, TM's normal bilaterally and normal external ear exam Neck Neck exam: Present normal inspection, full ROM and trachea midline; Absent tenderness, meningismus or lymphadenopathy Chest Chest inspection: Present normal inspection and symmetric chest wall rise; Absent tenderness, rash or abscess Respiratory Respiratory exam: Present normal lung sounds bilaterally; Absent respiratory distress, wheezes or stridor Cardiovascular Cardiovascular exam: Present regular rate and normal rhythm; Absent irregular rhythm, systolic murmur, diastolic murmur or JVD Abdominal Exam Abdominal exam: Present soft and hyperactive bowel sounds; Absent distention, tenderness, guarding, rebound, rigidity, psoas sign, obturator sign, heel tap sign, Foss's sign, Rovsing's sign or tenderness at McBurney's Point Extremities Exam Extremities exam: Present normal inspection and full ROM; Absent tenderness Back Exam Back exam: Present normal inspection and full ROM; Absent tenderness, CVA tenderness (R) or CVA tenderness (L) Neurological Exam Neurological exam: Present alert, oriented X3 and CN II-XII intact Psychiatric Psychiatric exam: Present normal affect and normal mood Skin Skin exam: Present warm, dry, intact and normal color Lymphatic Lymphatic Findings: no adenopathy Medical Decision Making Medical Records Medical records reviewed: No I reviewed the patient's medical records. Marco A Inquiry Pt receiving controlled substance: No
[2023-07-19 10:15] VITALS: BP 114/59; PULSE 83; RESP 20; TEMP 36.8; O2SAT 96; BMI 42.3
[2023-07-19 10:55] VITALS: BP 114/59; PULSE 83; RESP 20; TEMP 36.8; O2SAT 96
[2023-07-20 11:59] LABS: Adenovirus F 40/41, stool Not Detected (NotDetected); Astrovirus Not Detected (NotDetected); Campylobacter Not Detected (NotDetected); Clostridium Difficile A/B, PCR Not Detected (NotDetected); Cryptosporidium Not Detected (NotDetected); Cyclospora Cayetanesis Not Detected (NotDetected); Entamoeba histolytica Not Detected (NotDetected); Enteroaggregative E coli Not Detected (NotDetected); Enteropathogenic E coli Not Detected (NotDetected); Enterotoxigenic E coli Not Detected (NotDetected); Giardia lamblia Not Detected (NotDetected); Norovirus Not Detected (NotDetected); Plesimonas Shigalloides, PCR Not Detected (NotDetected); Rotavirus A Not Detected (NotDetected); Salmonella, PCR Not Detected (NotDetected); Sapovirus Not Detected (NotDetected); Shiga-like toxin E coli Not Detected (NotDetected); Shigella Enterovasive E coli Not Detected (NotDetected); Vibrio Cholerae Not Detected (NotDetected); Vibrio, PCR Not Detected (NotDetected); Yersinia Entercolitica, PCR Not Detected (NotDetected)
== END 2023-07-19 11:11 | disposition home or self-care (01) ==
PROVIDERS: Emergency Provider Nurse Practitioner Family; PCP Physician Assistant
DX: K52.9 Noninfective gastroenteritis and colitis, unspecified (principal); R11.2 Nausea with vomiting, unspecified; J44.9 Chronic obstructive pulmonary disease, unspecified; E11.40 Type 2 diabetes mellitus with diabetic neuropathy, unspecified; K21.9 Gastro-esophageal reflux disease without esophagitis; I10 Essential (primary) hypertension; Z79.4 Long term (current) use of insulin; Z87.891 Personal history of nicotine dependence
CPT/HCPCS: 87507; 99212; 99213; G0463

== ENCOUNTER 2023-07-20 10:57 | Outpatient (CLI) | payer MEDICARE, MEDICAID, SELFPAY | END 2023-07-20 23:59 | LOC: LAB 10:59 | PROVIDERS: PCP Nurse Practitioner Family; Visit Provider Psychiatry & Neurology Clinical Neurophysiology | DX: R11.2 Nausea with vomiting, unspecified (principal); R19.7 Diarrhea, unspecified ==

== ENCOUNTER 2023-07-20 11:27 | Emergency (ER) | payer MEDICARE, MEDICAID, SELFPAY ==
[2023-07-20] VITALS (7 sets, daily range): BP systolic 115–145; BP diastolic 64–69; PULSE 75–82; RESP 15–18; TEMP 36.6; O2SAT 92–97; BMI 42.3
--- NOTE | 2023-07-20 11:31 | PC.NURSE ---
Dr. Pruitt at [facility] for pt eval
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
--- NOTE | 2023-07-20 11:35 | ECG_ITS ---
APPROVED REPORT Exam: Resting ECG HR:80 bpm ECG Measurements Heart Rate 80 AXES WI 194 P 97 QRSd 95 QRS 88 QT 380 T 65 QTc 416 Conclusion SINUS RHYTHM WITH OCCASIONAL SUPRAVENTRICULAR PREMATURE COMPLEXES Electronically signed by : MEDARDO VERMA, 07/20/2023 16:17:20
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
[2023-07-20] MEDS: ACETAMINOPHEN 500MG TAB 1000 MG PO (11:42)
--- NOTE | 2023-07-20 11:43 | PC.NURSE ---
c-collar removed by Dr. Pruitt
[2023-07-20 12:11] LABS: Basophils # 0.1 K/mm3 (0-0.2); Basophils % 0.5 % (0.1-2.0); Eosinophils # 0.1 K/mm3 (0.0-0.4); Eosinophils % 0.6 % (0.1-12.0); Hematocrit 47.3 % (37.0-47.0); Hemoglobin 14.7 g/dL (12.2-16.2); Lymphocytes # 1.4 K/mm3 (0.7-4.5); Lymphocytes % 12.6 % (10-50); Mean Corpuscular Hemoglobin 30.2 pg (27.0-31.2); Mean Corpuscular Volume 97.4 fl (81-99); Mean Platelet Volume 7.7 fl (7.4-10.4); Monocytes # 0.6 K/mm3 (0.1-1.0); Neutrophils # 9.2 K/mm3 (1.8-7.8); Neutrophils % 81.2 % (37.0-80.0); Platelet Count 305 K/mm3 (142-424); Red Blood Count 4.86 M/mm3 (4.20-5.40); Red Cell Distribution Width 14.1 % (11.5-17.5); White Blood Count 11.3 K/mm3 (4.8-10.8)
[2023-07-20 12:21] LABS: Alanine Aminotransferase 29 U/L (12-78); Albumin Level 3.8 g/dl (3.5-5.0); Albumin/Globulin Ratio 1.2 (1.1-1.8); Alkaline Phosphatase 115 U/L (38-126); Anion Gap 9.9 mEq/L (5-15); Aspartate Amino Transferase 25 U/L (14-36); Bilirubin,Total 0.6 mg/dl (0.2-1.3); Blood Urea Nitrogen 28 mg/dl (7-17); Calcium 8.9 mg/dl (8.4-10.2); Carbon Dioxide 32 mmol/L (22.0-30.0); Chloride 103 mmol/L (98-107); Creatinine Clearance Estimated 43 mL/min (50-200); Estimated Glomerular Filt Rate 49 ml/min (>60); GFR (African American) 59 ML/MIN (>60); Globulin 3.3 g/dL (1.3-3.2); Glucose 195 mg/dl (74-100); Potassium 3.9 mmoL/L (3.5-5.1); Sodium 141 mmol/L (136-145); Total Protein,Serum 7.1 g/dl (6.3-8.2)
[2023-07-20 12:35] LABS: Troponin I < 0.01 ng/ml (0.00-0.034)
== END 2023-07-20 13:53 | disposition home or self-care (01) ==
PROVIDERS: Emergency Provider Emergency Medicine; PCP Physician Assistant
DX: R07.9 Chest pain, unspecified (principal); S60.012A Contusion of left thumb without damage to nail, initial encounter; J44.9 Chronic obstructive pulmonary disease, unspecified; I11.0 Hypertensive heart disease with heart failure; I50.9 Heart failure, unspecified; K21.9 Gastro-esophageal reflux disease without esophagitis; E11.40 Type 2 diabetes mellitus with diabetic neuropathy, unspecified; I25.10 Atherosclerotic heart disease of native coronary artery without angina pectoris; G47.33 Obstructive sleep apnea (adult) (pediatric); Z86.73 Personal history of transient ischemic attack (TIA), and cerebral infarction without residual deficits; Z87.891 Personal history of nicotine dependence; V49.40XA Driver injured in collision with unspecified motor vehicles in traffic accident, initial encounter
CPT/HCPCS: 70450; 71250; 72125; 73130; 80053; 84484; 85025; 93005; 99285

== ENCOUNTER 2023-08-05 10:21 | Outpatient (CLI) | payer MEDICARE, MEDICAID, SELFPAY ==
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
== END 2023-08-05 23:59 ==
LOC: RAD 10:22
PROVIDERS: PCP Physician Assistant; Visit Provider Physician Assistant
DX: S60.012A Contusion of left thumb without damage to nail, initial encounter (principal)
CPT/HCPCS: 73110

== ENCOUNTER 2023-08-05 10:58 | Outpatient (RCR) | payer MEDICARE, MEDICAID, SELFPAY | END 2023-08-05 12:00 | disposition home or self-care (01) | LOC: OT 10:58 | PROVIDERS: Visit Provider Physician Assistant | DX: M79.645 Pain in left finger(s) (principal); S60.012A Contusion of left thumb without damage to nail, initial encounter ==

== ENCOUNTER 2023-09-05 09:45 | Outpatient (POV) | payer MEDICARE, MEDICAID, SELFPAY ==
[2023-09-05 09:50] VITALS: BP 178/70; PULSE 78; RESP 18; O2SAT 96; BMI 41.9
--- NOTE | 2023-09-05 09:59 | A.OFFVIS_ITS ---
[facility] Pain Management SOAP Note Subjective:: Patient is a pleasant 68-year-old female who presents today for follow-up. Today she rates her pain a 10 out of 10. Patient states her pain is all in her low back and bilateral hips. Patient does describe this as a constant aching, throbbing sensation with tenderness to touch. Patient states this has been going on for a while and progressively worsening. Patient states that it seems aggravated with prolonged sitting or standing. She does state the pain is interfering with her ability perform activities of daily living. Patient does also state that she has been having more problems with her restless leg syndrome. She does state that she takes ropinirole from [facility] and that she believes she was up to 4 mg twice a day however Dr. Burnett had her decrease this due to concern that she was on too high of a dosage. Patient is currently managed with Horizant ER [address] Burnett however she states she really does not notice much improvement with this. Patient has tried compounded cream in the past with minimal improvement. Her Marco A has been reviewed and is appropriate. Review of Systems: General: No recent weight changes, no fever, no sleep disturbances Respiratory: No cough, no shortness of air, no recurring pulmonary infections Cardiovascular/peripheral vascular: No chest pain, no palpitations, no edema, no shortness of breath Gastrointestinal: No new onset incontinence, normal bowel movements reported Genitourinary: No new onset incontinence Musculoskeletal: Low back pain, bilateral hip pain Psychiatric: [Normal mood/affect] Neurological: [Denies weakness in extremities], [denies balance issues] Objective:: Physical Exam: General: Alert and oriented x3, no acute distress, pleasant and cooperative Lungs: Respirations even and unlabored, symmetrical chest expansion Eyes: PERRL Musculoskeletal: Flexion and extension of lumbar [spine] somewhat guarded secondary to pain, [antalgic gait noted] point tenderness along bilateral SIs with positive bilateral Addis's, Lavinia's, Gaenslen's, compression and distraction exam Neurological: Speech clear, no gross sensory deficit Assessment:: Degenerative disc disease of lumbar spine with lumbar radiculopathy symptoms, lumbar facet arthropathy, lumbar spondylosis, bilateral sacroiliitis Plan:: Patient is experiencing worsening pain in her low back and bilateral hips with limited range of motion of her lumbar spine. Patient did have point tenderness along her bilateral SIs with a positive bilateral Addis's, Lavinia's, Gaenslen's, compression and distraction exam. I have discussed with the patient that she may benefit from bilateral SI injections. Risk and benefits were discussed with the patient and she would like to proceed forward with this plan of care. Patient has tried and failed conservative therapies including continued at home exercise and stretching techniques over the last 12 weeks. I have discussed with the patient that it may be very beneficial to talk to Dr. Burnett regarding the Horizant and if she has not noticed significant relief maybe trying pregabalin instead. We will follow-up with the patient at her upcoming visits regarding any medication changes. We will schedule the patient for bilateral SI injections under fluoroscopy. Patient has been instructed to contact the clinic with any concerns before the next appointment. Dr. Bryant has reviewed this note and agrees with this plan of care. This note was dictated using voice recognition software and make contain errors or omissions. [facility] Disclaimer: The information contained in this section may have been updated after the patient was seen, as this information can be updated by other users. Medical History Labile essential hypertension TOMAS (obstructive sleep apnea) Noncompliant with CPAP. Ear itching Vomiting Bilateral impacted cerumen Allergic rhinitis Breast cyst left removed Ganglion cyst left wrist Dermoid cyst of head removed Diabetes mellitus, type 2 Neck pain Moderate mitral regurgitation Dizziness Mood disorder Obesity HTN (hypertension) COPD (chronic obstructive pulmonary disease) GERD (gastroesophageal reflux disease) Neuropathy Anxiety Restless leg syndrome Most likely secondary RLS in a patient with poorly controlled diabetes mellitus and peripheral neuropathy. She has signs and symptoms suggestive of augmentation, (worsening of RLS despite of increasing doses dopamine agonist and most recently carbidopa/levodopa). Surgical History Status post trigger finger release History of cholecystectomy History of hysterectomy History of colonoscopy Family History Other Family history of Alzheimer's disease Family history of myocardial infarction Social History Smoking Status: Former smoker tobacco type: cigarettes packs per day: 1 second hand exposure: Yes alcohol intake: never counseling provided: provider counseling substance use type: denies use current occupational status: other Travel in the last 8 weeks: None household members: children housing: house lives independently: Yes marital status: legally education level: high school current occupational exposures/hazards: No caffeine: Yes special lex needs: No agree to transfusion: No do you feel safe at home: Yes victim of physical abuse: No victim of emotional abuse: No victim of sexual abuse: No would you like helpful sources: No
== END 2023-09-05 23:59 ==
LOC: SC.PAIN 09:45
PROVIDERS: PCP Physician Assistant; Visit Provider Nurse Practitioner Family
DX: M51.16 Intervertebral disc disorders with radiculopathy, lumbar region (principal); M47.26 Other spondylosis with radiculopathy, lumbar region; M46.1 Sacroiliitis, not elsewhere classified
CPT/HCPCS: 99212; G0463

== ENCOUNTER 2023-09-18 09:17 | Outpatient (CLI) | payer MEDICARE, MEDICAID, SELFPAY ==
--- NOTE | 2023-09-18 09:18 | US_ITS ---
FINAL REPORT CLINICAL HISTORY: .BLE decreased pulses, DM, HTN COMPARISON: None FINDINGS: LOWER EXTREMITY SEGMENTAL PRESSURE MEASUREMENTS Pressure indices are as follows: RIGHT LOWER EXTREMITY: Thigh: 1.03 Calf: 1.19 Ankle, posterior tibial artery: 1.18 Ankle, dorsalis pedis: 0.80 Toe: 0.56 JAMAL: 1.18 Comments: Normal LEFT LOWER EXTREMITY: Thigh: 1.01 Calf: 1.28 Ankle, posterior tibial artery: 1.16 Ankle, dorsalis pedis: 0.99 Toe: 0.58 JAMAL: 1.16 Comments: Normal IMPRESSION: No evidence of significant obstructive peripheral vascular disease of the lower extremities Reviewed, Interpreted and Dictated by Faith Goldberg MD Transcribed by Jimena Ordonez Authenticated and [facility]
== END 2023-09-18 23:59 | disposition home or self-care (01) ==
LOC: RT 09:18
PROVIDERS: PCP Physician Assistant; Visit Provider Physician Assistant
DX: R09.89 Other specified symptoms and signs involving the circulatory and respiratory systems (principal)
CPT/HCPCS: 93923

== ENCOUNTER 2023-09-24 11:11 | Day surgery (SDC) | payer MEDICARE, MEDICAID, SELFPAY ==
[2023-09-24 11:29] VITALS: BP 130/77; PULSE 79; RESP 16; TEMP 36.2; O2SAT 92; BMI 41.5
[2023-09-24] MEDS: methylPREDNISolone ACETATE 80MG/ML VIAL 80 MG (11:57)
[2023-09-24 12:00] VITALS: BP 177/78; PULSE 70; RESP 18; O2SAT 98
[2023-09-24 12:01] VITALS: BP 157/77; PULSE 75; RESP 18; O2SAT 94
[2023-09-24] MEDS: BUPIVACAINE 0.25% 10ML INJ 25 MG IJ (12:01)
[2023-09-24] MEDS: LIDOCAINE 1% 5ML PF VIAL 5 ML (12:01)
[2023-09-24 12:03] VITALS: BP 157/77; PULSE 75; RESP 18; O2SAT 94
--- NOTE | 2023-09-24 12:08 | P.PCN_ITS ---
Procedure Date: 09/24/23 Time: 11:40 Anesthesiologist:: Paulino Amador CRNA Complications:: None Pre-procedure Diagnosis:: Bilateral sacroiliitis Post-procedure Diagnosis:: Same Indications for Procedure:: Patient is a pleasant 68-year-old female comes to clinic today for bilateral sacroiliac joint injections with cortisone. Patient reports responding very well to this injection in the past. Upon examination she has extreme point tenderness over the bilateral sacroiliac joints. Patient reports difficulty transitioning from sitting to standing. Difficulty with ambulation secondary to low lumbar back pain off the midline bilaterally. She rates her pain 7/10. Procedure Details:: Procedure: Bilateral sacroiliac joint injections under fluoroscopy Informed consent was obtained and the risks and benefits of the procedure were explained to the patient.~ The patient was taken to the procedure room and noninvasive monitors were placed including a noninvasive blood pressure cuff and pulse oximeter.~ The patient was placed prone on the procedure table. Both hips were cleansed using Betadine as a cleansing solution. C-arm fluoroscopy was used to view the right sacroiliac joint.~ The skin and subcutaneous tissues were anesthetized using lidocaine 1.5% and a 25-gauge needle.~ After this, a 22-gauge spinal needle was inserted under fluoroscopic guidance into the inferior aspect of the right sacroiliac joint.~ Omnipaque dye was injected and good spread was seen throughout the joint.~ After this, approximately 5 mL of bupivacaine, 0.25% and Depo-Medrol, 40 mg was incrementally injected into the right sacroiliac joint. We then moved to the left sacroiliac joint.~ The skin and subcutaneous tissues were anesthetized using lidocaine 1.5% and a 25-gauge needle.~ After this, a 22- gauge spinal needle was inserted under fluoroscopic guidance into the inferior aspect of the left sacroiliac joint.~ Omnipaque dye was injected and good spread was seen throughout the joint. After this, approximately 5 mL of bupivacaine, 0.25% and Depo-Medrol, 40 mg was incrementally injected into the left sacroiliac joint.~ The patient tolerated the procedure well with no complications. The patient was observed in the Pain Clinic and then was discharged home neurologically intact. Plan and Disposition:: Patient was discharged without incident.
== END 2023-09-24 12:00 | disposition home or self-care (01) ==
LOC: SC.PAINP 11:13
PROVIDERS: PCP Physician Assistant; Visit Provider Nurse Anesthetist, Certified Registered
DX: M46.1 Sacroiliitis, not elsewhere classified (principal)
CPT/HCPCS: 27096; G0260; J1010

== ENCOUNTER 2023-10-09 17:24 | Emergency (ER) | payer MEDICARE, MEDICAID, SELFPAY ==
[2023-10-09 17:35] VITALS: BP 109/69; PULSE 74; RESP 18; TEMP 36.8; O2SAT 96; BMI 41.4
--- NOTE | 2023-10-09 17:49 | EXP.UTC ---
Discharge Plan Disposition Patient Disposition: Home, Self-Care Condition: Good Prescriptions Prescriptions: No Action Ferrimin 150 456 mg (150 mg iron) tablet 456 mg PO DAILY Qty: 30 5RF Rx Instructions: 1 tab po qhs Mounjaro 10 mg/0.5 mL pen injector 10 mg SQ DIRECTED losartan 50 mg tablet 50 mg PO DAILY Qty: 100 2RF Repatha SureClick 140 mg/mL pen injector 140 mg SQ Q2W Qty: 2 2RF diclofenac sodium [Arthritis Pain (diclofenac)] 1 % gel 2 g topical QID Qty: 100 2RF Rx Instructions: apply to single elbow, wrist or hand; for hand includes palm/fingers/back of hand Horizant 600 mg tablet extended release 600 mg PO DIRECTED Patient Comments: TAKE 1 TABLET BY MOUTH 2 HOURS BEFORE BEDTIME WITH FOOD FOR RESTLESS LEG SYNDROME montelukast 10 mg tablet 10 mg PO DAILY trazodone 50 mg tablet 50 mg PO QHS Qty: 90 0RF sertraline 100 mg tablet See Rx Instructions .ROUTE .COMPLEX Qty: 90 3RF Rx Instructions: TAKE 1 TABLET BY MOUTH AT BEDTIME FOR DEPRESSION; bupropion HCl 150 mg tablet sustained-release 12 hr See Rx Instructions .ROUTE .COMPLEX Qty: 180 3RF Dose Instruction: TAKE 1 TABLET BY MOUTH TWICE DAILY FOR MOOD Rx Instructions: TAKE 1 TABLET BY MOUTH TWICE DAILY FOR MOOD dexlansoprazole [Dexilant] 60 mg capsule,biphase delayed releas See Rx Instructions .ROUTE .COMPLEX Qty: 90 3RF Dose Instruction: TAKE 1 CAPSULE BY MOUTH ONCE DAILY FOR STOMACH Rx Instructions: TAKE 1 CAPSULE BY MOUTH ONCE DAILY FOR STOMACH clopidogrel 75 mg tablet See Rx Instructions .ROUTE .COMPLEX Qty: 100 3RF Hold Instructions: Resume on 01/10/23. Rx Instructions: TAKE 1 TABLET BY MOUTH ONCE DAILY memantine 7 mg capsule,sprinkle,ER 24hr See Rx Instructions .ROUTE .COMPLEX Qty: 90 3RF Dose Instruction: TAKE 1 CAPSULE BY MOUTH ONCE DAILY Rx Instructions: TAKE 1 CAPSULE BY MOUTH ONCE DAILY meclizine 25 mg tablet See Rx Instructions .ROUTE .COMPLEX Qty: 90 0RF Dose Instruction: TAKE 1 TABLET BY MOUTH 3 TIMES DAILY NEEDED FOR DIZZINESS Rx Instructions: TAKE 1 TABLET BY MOUTH 3 TIMES DAILY NEEDED FOR DIZZINESS fluticasone propionate 50 mcg/actuation spray,suspension See Rx Instructions .ROUTE .COMPLEX Qty: 48 0RF Dose Instruction: USE 2 SPRAYS IN BOTH NOSTRILS DAILY FOR BREATHING PROBLEMS Rx Instructions: USE 2 SPRAYS IN BOTH NOSTRILS DAILY FOR BREATHING PROBLEMS insulin lispro 100 unit/mL insulin pen 1 sliding scale dose SQ QAC Patient Comments: 125-150 6 units 150-200 8 units over 200 10 units (DME) pen needle, diabetic [BD Ultra-Fine Mini Pen Needle] 31 gauge x 3/16 needle See Rx Instructions .ROUTE .COMPLEX Qty: 100 0RF Dose Instruction: USE THREE TIMES DAILY DIRECTED FOR DIABETES Rx Instructions: USE THREE TIMES DAILY DIRECTED FOR DIABETES ropinirole 4 mg tablet See Rx Instructions .ROUTE .COMPLEX Qty: 180 3RF Dose Instruction: TAKE 1 TABLET BY MOUTH TWICE DAILY FOR LEGS Rx Instructions: TAKE 1 TABLET BY MOUTH TWICE DAILY FOR LEGS albuterol sulfate 1.25 mg/3 mL solution for nebulization 1.25 mg INHALATION QID PRN (Reason: shortness of breath or wheezing) Qty: 90 0RF ergocalciferol (vitamin D2) 1,250 mcg (50,000 unit) capsule 1,250 mcg PO WEEKLY Qty: 14 3RF cholecalciferol (vitamin D3) 50 mcg (2,000 unit) capsule 50 mcg PO DAILY Qty: 90 3RF ranolazine 500 mg tablet extended release 12 hr 500 mg PO BID Qty: 60 3RF dapagliflozin propanediol 10 mg tablet See Rx Instructions .ROUTE .COMPLEX Qty: 90 0RF Dose Instruction: Take 1 tablet by mouth once daily Rx Instructions: Take 1 tablet by mouth once daily isosorbide mononitrate 30 mg tablet extended release 24 hr 30 mg PO DAILY Qty: 30 2RF buspirone 30 mg tablet See Rx Instructions .ROUTE .COMPLEX Qty: 200 0RF Dose Instruction: TAKE 1 TABLET BY MOUTH TWICE DAILY (MAY CAUSE DROWSINESS) Rx Instructions: TAKE 1 TABLET BY MOUTH TWICE DAILY (MAY CAUSE DROWSINESS) triamcinolone acetonide 0.025 % cream See Rx Instructions .ROUTE .COMPLEX Qty: 60 0RF Dose Instruction: APPLY CREAM TOPICALLY TWICE DAILY Rx Instructions: APPLY CREAM TOPICALLY TWICE DAILY flecainide 100 mg tablet See Rx Instructions .ROUTE .COMPLEX Qty: 200 2RF Dose Instruction: TAKE 1 TABLET BY MOUTH EVERY 12 HOURS FOR AFIB Rx Instructions: TAKE 1 TABLET BY MOUTH EVERY 12 HOURS FOR AFIB insulin degludec [Tresiba FlexTouch U-100] 100 unit/mL (3 mL) insulin pen See Rx Instructions .ROUTE .COMPLEX Qty: 15 0RF Dose Instruction: INJECT 75 UNITS SUBCUTANEOUSLY AT BEDTIME Rx Instructions: INJECT 75 UNITS SUBCUTANEOUSLY AT BEDTIME famotidine 20 mg tablet See Rx Instructions .ROUTE .COMPLEX Qty: 100 2RF Dose Instruction: TAKE 1 TABLET BY MOUTH AT BEDTIME FOR STOMACH Rx Instructions: TAKE 1 TABLET BY MOUTH AT BEDTIME FOR STOMACH Xarelto 20 mg tablet See Rx Instructions .ROUTE .COMPLEX Qty: 100 2RF Dose Instruction: TAKE 1 TABLET BY MOUTH DAILY FOR BLOOD THINNER Rx Instructions: TAKE 1 TABLET BY MOUTH DAILY FOR BLOOD THINNER metoprolol succinate 25 mg tablet extended release 24 hr See Rx Instructions .ROUTE .COMPLEX Qty: 100 2RF Dose Instruction: TAKE 1 TABLET BY MOUTH ONCE DAILY FOR BLOOD PRESSURE Rx Instructions: TAKE 1 TABLET BY MOUTH ONCE DAILY FOR BLOOD PRESSURE furosemide 40 mg tablet See Rx Instructions .ROUTE .COMPLEX Qty: 100 2RF Dose Instruction: TAKE 1 TABLET BY MOUTH DAILY DIRECTED FOR FLUID Rx Instructions: TAKE 1 TABLET BY MOUTH DAILY DIRECTED FOR FLUID Referrals Follow up/Referrals: Reva Lou PA [Primary Care Provider] - See instructions Abby Mustafa DPM [Staff Physician] - See instructions Activity Restrictions/Add. Instructions Additional Instructions/Restrictions: Rest the extremity, Elevate the extremity as tolerated while you are resting. Follow up with Dr. Mustafa (podiatry). I put in a referral but you need to call her office and schedule an appointment. Follow up with your regular doctor. GO TO THE ER FOR ANY WORSENING SYMPTOMS Clinical Impressions Clinical Impression: Left foot pain, Ganglion cyst of left foot Instructions Patient Instructions: Ganglion Cyst, DI Ganglion Cyst Discharge ED Provider: Corey Degroot [facility] [place] HPI General Stated complaint: Knots on left foot,no injury Mode of Arrival: Ambulatory Source of Information: Patient Limitations: No Limitations Time Seen by Provider: 10/09/23 17:47 Description of Symptoms (Recalled from Triage Doc. by RN): Pt stated that today the top part of her foot these bumps popped up on the top of the foot. She stated that the pain comes and goes. HEENT Symptoms (Recalled from RN notes): No Resp Symptoms (Recalled from RN notes): No Skin Symptoms (Recalled from RN notes): Yes MS Symptoms (Recalled from RN notes): No Functional Status (Recalled from RN notes): n/a History of Present Illness Provider Complaint: She states that she has had left foot pain since yesterday. She has 2 knots on the top of her foot. She states that knots are tender touch and they hurt when she moves her foot. She denies any fever/chills. She is a diabetic. Related Data Home Medications Medication Instructions Recorded Confirmed insulin lispro 100 unit/mL 1 sliding scale dose SQ QAC 03/19/23 09/24/23 subcutaneous pen Diabetes tirzepatide 10 mg/0.5 mL 10 mg SQ DIRECTED 07/17/23 09/24/23 subcutaneous pen injector (Laney) gabapentin enacarbil 600 mg 600 mg PO DIRECTED 08/14/23 09/24/23 tablet,extended release (Horizant ER) montelukast 10 mg tablet 10 mg PO DAILY 09/12/23 09/24/23 Previous Rx's Medication Instructions Recorded sertraline 100 mg tablet See Rx Instructions .Route 11/26/22 .COMPLEX Anxiety #90 tabs bupropion HCl 150 mg tablet,12 hr See Rx Instructions .Route 01/28/23 sustained-release .COMPLEX #180 tabs dexlansoprazole 60 mg See Rx Instructions .Route 02/13/23 capsule,biphase delayed release .COMPLEX #90 caps (Dexilant) clopidogrel 75 mg tablet See Rx Instructions .Route 02/14/23 .COMPLEX Blood thinner #100 tabs memantine 7 mg capsule See Rx Instructions .Route 03/06/23 sprinkle,extended release 24hr .COMPLEX #90 caps ferrous fumarate 456 mg (150 mg 456 mg PO DAILY Iron metabolism 03/14/23 iron) tablet (Ferrimin 150) disorder #30 tabs fluticasone propionate 50 See Rx Instructions .Route 03/18/23 mcg/actuation nasal .COMPLEX #48 grams spray,suspension meclizine 25 mg tablet See Rx Instructions .Route 03/18/23 .COMPLEX #90 tabs pen needle, diabetic 31 gauge x #100 ea 03/25/23 3/16 (BD Ultra-Fine Mini Pen Needle) ropinirole 4 mg tablet See Rx Instructions .Route 03/26/23 .COMPLEX #180 tabs albuterol sulfate 1.25 mg/3 mL 1.25 mg (3 mL) inhalation QID PRN 06/06/23 solution for nebulization shortness of breath or wheezing #90 mL diclofenac sodium 1 % topical gel 2 g topical QID #100 grams 07/01/23 (Arthritis Pain (diclofenac)) cholecalciferol (vitamin D3) 50 50 mcg PO DAILY #90 caps 07/12/23 mcg (2,000 unit) capsule ergocalciferol (vitamin D2) 1,250 1,250 mcg PO WEEKLY #14 caps 07/12/23 mcg (50,000 unit) capsule evolocumab 140 mg/mL subcutaneous 140 mg SQ Q2W #2 mL 07/17/23 pen injector (Repatha SureClick) losartan 50 mg tablet 50 mg PO DAILY #100 tabs 07/17/23 ranolazine 500 mg tablet,extended 500 mg PO BID #60 tabs 07/25/23 release,12 hr dapagliflozin propanediol 10 mg See Rx Instructions .Route 07/30/23 tablet .COMPLEX #90 tabs isosorbide mononitrate 30 mg 30 mg PO DAILY #30 tabs 08/12/23 tablet,extended release 24 hr buspirone 30 mg tablet See Rx Instructions .Route 08/16/23 .COMPLEX #200 tabs triamcinolone acetonide 0.025 % See Rx Instructions .Route 08/19/23 topical cream .COMPLEX #60 grams flecainide 100 mg tablet See Rx Instructions .Route 09/02/23 .COMPLEX #200 tabs trazodone 50 mg tablet 50 mg PO QHS #90 tabs 09/12/23 insulin degludec 100 unit/mL (3 See Rx Instructions .Route 09/27/23 mL) subcutaneous pen (Tresiba .COMPLEX #15 mL FlexTouch U-100 insulin) famotidine 20 mg tablet See Rx Instructions .Route 09/30/23 .COMPLEX #100 tabs metoprolol succinate 25 mg See Rx Instructions .Route 09/30/23 tablet,extended release 24 hr .COMPLEX #100 tabs rivaroxaban 20 mg tablet (Xarelto) See Rx Instructions .Route 09/30/23 .COMPLEX #100 tabs furosemide 40 mg tablet See Rx Instructions .Route 10/07/23 .COMPLEX #100 tabs Allergies Allergy/AdvReac Type Severity Reaction Status Date / Time canagliflozin [From Invokana] Allergy Severe blisters Verified 10/09/23 17:45 metformin Allergy Mild Diarrhea, Verified 10/09/23 17:45 nausea, dizziness sitagliptin [From Januvia] Allergy Mild Hives Verified 10/09/23 17:45 linaclotide [From Linzess] Allergy Rash Verified 10/09/23 17:45 metronidazole [From Metrogel] Allergy Rash Verified 10/09/23 17:45 nystatin Allergy Dizziness Verified 10/09/23 17:45 rosuvastatin [From Crestor] Allergy Unknown Verified 10/09/23 17:45 allergy reaction semaglutide [From Ozempic] AdvReac Severe Abdominal Verified 10/09/23 17:45 Pain atorvastatin [From Lipitor] AdvReac Intermediate body aches Verified 10/09/23 17:45 andmental confusion imdur AdvReac Mild headache Uncoded 09/12/23 10:55 Worker's Comp Is this a Worker's Comp case?: No [facility] Disclaimer: The information contained in this section may have been updated after the patient was seen, as this information can be updated by other users. Medical History Labile essential hypertension TOMAS (obstructive sleep apnea) Noncompliant with CPAP. Ear itching Vomiting Bilateral impacted cerumen Allergic rhinitis Breast cyst left removed Ganglion cyst left wrist Dermoid cyst of head removed Diabetes mellitus, type 2 Neck pain Moderate mitral regurgitation Dizziness Mood disorder Obesity HTN (hypertension) COPD (chronic obstructive pulmonary disease) GERD (gastroesophageal reflux disease) Neuropathy Anxiety Restless leg syndrome Most likely secondary RLS in a patient with poorly controlled diabetes mellitus and peripheral neuropathy. She has signs and symptoms suggestive of augmentation, (worsening of RLS despite of increasing doses dopamine agonist and most recently carbidopa/levodopa). Surgical History Status post trigger finger release History of cholecystectomy History of hysterectomy History of colonoscopy Family History Other Family history of Alzheimer's disease Family history of myocardial infarction Social History Smoking Status: Former smoker tobacco type: cigarettes packs per day: 1 second hand exposure: Yes alcohol intake: never counseling provided: provider counseling substance use type: denies use current occupational status: other Travel in the last 8 weeks: None household members: children housing: house lives independently: Yes marital status: legally education level: high school current occupational exposures/hazards: No caffeine: Yes special lex needs: No agree to transfusion: No do you feel safe at home: Yes victim of physical abuse: No victim of emotional abuse: No victim of sexual abuse: No would you like helpful sources: No ROS Obtained: Yes All systems reviewed & no additional complaints except as documented Constitutional Constitutional: Denies chills and Denies fever(s) Eyes Eyes: Denies eye discharge ENT Ears, Nose, Mouth, and Throat: Denies dizziness, Denies otalgia and Denies sore throat Cardiovascular Cardiovascular: Denies chest pain Respiratory Respiratory: Denies shortness of breath, Denies chest congestion, Denies cough, Denies stridor and Denies wheezing Gastrointestinal Gastrointestingal: Denies nausea or vomiting Musculoskeletal Musculoskeletal: Reports as per HPI Integumentary/Breasts Skin/Breast: Denies redness, Denies rash and Denies wounds Neurologic Neurologic: Denies dizziness and Denies paresthesias Allergic/Immunologic Allergic/Immunologic: Denies wheezing Physical Exam General General appearance: alert and in no apparent distress Head Head exam: atraumatic, normocephalic and normal inspection Eye Eye exam: Present normal appearance, PERRL and EOMI ENT ENT exam: Present normal exam, normal oropharynx, mucous membranes moist, TM's normal bilaterally and normal external ear exam Neck Neck exam: Present normal inspection, full ROM and trachea midline; Absent meningismus or lymphadenopathy Chest Chest inspection: Present normal inspection and symmetric chest wall rise; Absent tenderness Respiratory Respiratory exam: Present normal lung sounds bilaterally; Absent respiratory distress Cardiovascular Cardiovascular exam: Present regular rate and normal rhythm; Absent JVD Abdominal Exam Abdominal exam: Present soft and normal bowel sounds; Absent distention, tenderness or guarding Extremities Exam Extremities exam: Present normal inspection, full ROM and normal capillary refill; Absent calf tenderness Back Exam Back exam: Present normal inspection; Absent tenderness Neurological Exam Neurological exam: Present alert and oriented X3 Psychiatric Psychiatric exam: Present normal affect and normal mood Skin Skin exam: Present warm, dry, intact and normal color Lymphatic Lymphatic Findings: no adenopathy Medical Decision Making Medical Records Medical records reviewed: No I reviewed the patient's medical records. Marco A Inquiry Pt receiving controlled substance: No Vital Signs: 05/22/24 17:35 Temperature 98.2 F Temperature Source Oral Pulse Rate [Right Radial] 74 Respiratory Rate 18 Blood Pressure [Right Arm] 109/69 L Blood Pressure Mean [Right Arm] 82 Blood Pressure Source [Right Arm] Automatic Cuff Blood Pressure Position [Right Arm] Sitting 02 Sat by Pulse Oximetry 96 Oxygen Delivery Method Room Air
[2023-10-09 18:32] VITALS: BP 109/64; PULSE 74; RESP 18; TEMP 36.8; O2SAT 96
== END 2023-10-09 18:32 | disposition home or self-care (01) ==
PROVIDERS: Emergency Provider Nurse Practitioner Family; PCP Physician Assistant
DX: M79.672 Pain in left foot (principal); M67.472 Ganglion, left ankle and foot; E11.9 Type 2 diabetes mellitus without complications; Z79.4 Long term (current) use of insulin; Z79.85 Long-term (current) use of injectable non-insulin antidiabetic drugs
CPT/HCPCS: 99212; 99213; G0463

== ENCOUNTER 2023-10-27 11:04 | Emergency (ER) | payer MEDICARE, MEDICAID, SELFPAY ==
[2023-10-27] VITALS (10 sets, daily range): BP systolic 96–191; BP diastolic 49–87; PULSE 70–80; RESP 9–19; TEMP 36.6–36.9; O2SAT 90–98; BMI 40.7
--- NOTE | 2023-10-27 11:04 | ECG_ITS ---
APPROVED REPORT Exam: Resting ECG HR:77 bpm ECG Measurements Heart Rate 77 AXES WV 185 P 13 QRSd 97 QRS 45 QT 386 T 28 QTc 418 Conclusion SINUS RHYTHM NORMAL ECG Electronically signed by : FIONA POWER, 10/27/2023 12:20:29
--- NOTE | 2023-10-27 11:17 | XR_ITS ---
PROCEDURE INFORMATION: Exam: XR Chest Exam date and time: 10/27/2023 11:28 AM Age: 68 years old Clinical indication: Pain; Chest pressure; Additional info: Chest pain TECHNIQUE: Imaging protocol: Radiologic exam of the chest. Views: 1 view. COMPARISON: CT CHEST WO CON 07/20/2023 12:47 PM FINDINGS: Lungs: Calcified granuloma in the right lower lobe is again seen. No consolidation. Pleural spaces: Unremarkable. No pleural effusion. No pneumothorax. Heart/Mediastinum: Aortic atherosclerosis. No cardiomegaly. Bones/joints: Unremarkable. IMPRESSION: No acute findings.
--- NOTE | 2023-10-27 11:24 | ED_ITS ---
Discharge Plan Disposition Patient Disposition: Home, Self-Care Prescriptions Prescriptions: No Action Ferrimin 150 456 mg (150 mg iron) tablet 456 mg PO DAILY Qty: 30 5RF Rx Instructions: 1 tab po qhs Mounjaro 10 mg/0.5 mL pen injector 10 mg SQ DIRECTED losartan 50 mg tablet 50 mg PO DAILY Qty: 100 2RF Repatha SureClick 140 mg/mL pen injector 140 mg SQ Q2W Qty: 2 2RF dexlansoprazole [Dexilant] 60 mg capsule,biphase delayed releas See Rx Instructions .ROUTE .COMPLEX Qty: 90 3RF Dose Instruction: TAKE 1 CAPSULE BY MOUTH ONCE DAILY FOR STOMACH Rx Instructions: TAKE 1 CAPSULE BY MOUTH ONCE DAILY FOR STOMACH (DME) Dexcom G7 Sensor Device See Rx Instructions .Route Qty: 14 3RF Rx Instructions: As directed sertraline 100 mg tablet See Rx Instructions .ROUTE .COMPLEX Qty: 90 3RF Rx Instructions: TAKE 1 TABLET BY MOUTH AT BEDTIME FOR DEPRESSION; albuterol sulfate [Proventil HFA] 90 mcg/actuation HFA aerosol inhaler 2 puff inhalation Q6H Qty: 8.5 5RF Rx Instructions: administer with spacer memantine 7 mg capsule,sprinkle,ER 24hr See Rx Instructions .ROUTE .COMPLEX Qty: 90 3RF Dose Instruction: TAKE 1 CAPSULE BY MOUTH ONCE DAILY Rx Instructions: TAKE 1 CAPSULE BY MOUTH ONCE DAILY diclofenac sodium [Arthritis Pain (diclofenac)] 1 % gel 2 g topical QID Qty: 100 2RF Rx Instructions: apply to single elbow, wrist or hand; for hand includes palm/fingers/back of hand Horizant 600 mg tablet extended release 600 mg PO DIRECTED Patient Comments: TAKE 1 TABLET BY MOUTH 2 HOURS BEFORE BEDTIME WITH FOOD FOR RESTLESS LEG SYNDROME montelukast 10 mg tablet 10 mg PO DAILY trazodone 50 mg tablet 50 mg PO QHS Qty: 90 0RF bupropion HCl 150 mg tablet sustained-release 12 hr See Rx Instructions .ROUTE .COMPLEX Qty: 180 3RF Dose Instruction: TAKE 1 TABLET BY MOUTH TWICE DAILY FOR MOOD Rx Instructions: TAKE 1 TABLET BY MOUTH TWICE DAILY FOR MOOD clopidogrel 75 mg tablet See Rx Instructions .ROUTE .COMPLEX Qty: 100 3RF Hold Instructions: Resume on 01/10/23. Rx Instructions: TAKE 1 TABLET BY MOUTH ONCE DAILY meclizine 25 mg tablet See Rx Instructions .ROUTE .COMPLEX Qty: 90 0RF Dose Instruction: TAKE 1 TABLET BY MOUTH 3 TIMES DAILY NEEDED FOR DIZZINESS Rx Instructions: TAKE 1 TABLET BY MOUTH 3 TIMES DAILY NEEDED FOR DIZZINESS fluticasone propionate 50 mcg/actuation spray,suspension See Rx Instructions .ROUTE .COMPLEX Qty: 48 0RF Dose Instruction: USE 2 SPRAYS IN BOTH NOSTRILS DAILY FOR BREATHING PROBLEMS Rx Instructions: USE 2 SPRAYS IN BOTH NOSTRILS DAILY FOR BREATHING PROBLEMS insulin lispro 100 unit/mL insulin pen 1 sliding scale dose SQ QAC Patient Comments: 125-150 6 units 150-200 8 units over 200 10 units (DME) pen needle, diabetic [BD Ultra-Fine Mini Pen Needle] 31 gauge x 3/16 needle See Rx Instructions .ROUTE .COMPLEX Qty: 100 0RF Dose Instruction: USE THREE TIMES DAILY DIRECTED FOR DIABETES Rx Instructions: USE THREE TIMES DAILY DIRECTED FOR DIABETES ropinirole 4 mg tablet See Rx Instructions .ROUTE .COMPLEX Qty: 180 3RF Dose Instruction: TAKE 1 TABLET BY MOUTH TWICE DAILY FOR LEGS Rx Instructions: TAKE 1 TABLET BY MOUTH TWICE DAILY FOR LEGS albuterol sulfate 1.25 mg/3 mL solution for nebulization 1.25 mg INHALATION QID PRN (Reason: shortness of breath or wheezing) Qty: 90 0RF ergocalciferol (vitamin D2) 1,250 mcg (50,000 unit) capsule 1,250 mcg PO WEEKLY Qty: 14 3RF cholecalciferol (vitamin D3) 50 mcg (2,000 unit) capsule 50 mcg PO DAILY Qty: 90 3RF ranolazine 500 mg tablet extended release 12 hr 500 mg PO BID Qty: 60 3RF dapagliflozin propanediol 10 mg tablet See Rx Instructions .ROUTE .COMPLEX Qty: 90 0RF Dose Instruction: Take 1 tablet by mouth once daily Rx Instructions: Take 1 tablet by mouth once daily isosorbide mononitrate 30 mg tablet extended release 24 hr 30 mg PO DAILY Qty: 30 2RF buspirone 30 mg tablet See Rx Instructions .ROUTE .COMPLEX Qty: 200 0RF Dose Instruction: TAKE 1 TABLET BY MOUTH TWICE DAILY (MAY CAUSE DROWSINESS) Rx Instructions: TAKE 1 TABLET BY MOUTH TWICE DAILY (MAY CAUSE DROWSINESS) triamcinolone acetonide 0.025 % cream See Rx Instructions .ROUTE .COMPLEX Qty: 60 0RF Dose Instruction: APPLY CREAM TOPICALLY TWICE DAILY Rx Instructions: APPLY CREAM TOPICALLY TWICE DAILY flecainide 100 mg tablet See Rx Instructions .ROUTE .COMPLEX Qty: 200 2RF Dose Instruction: TAKE 1 TABLET BY MOUTH EVERY 12 HOURS FOR AFIB Rx Instructions: TAKE 1 TABLET BY MOUTH EVERY 12 HOURS FOR AFIB famotidine 20 mg tablet See Rx Instructions .ROUTE .COMPLEX Qty: 100 2RF Dose Instruction: TAKE 1 TABLET BY MOUTH AT BEDTIME FOR STOMACH Rx Instructions: TAKE 1 TABLET BY MOUTH AT BEDTIME FOR STOMACH Xarelto 20 mg tablet See Rx Instructions .ROUTE .COMPLEX Qty: 100 2RF Dose Instruction: TAKE 1 TABLET BY MOUTH DAILY FOR BLOOD THINNER Rx Instructions: TAKE 1 TABLET BY MOUTH DAILY FOR BLOOD THINNER metoprolol succinate 25 mg tablet extended release 24 hr See Rx Instructions .ROUTE .COMPLEX Qty: 100 2RF Dose Instruction: TAKE 1 TABLET BY MOUTH ONCE DAILY FOR BLOOD PRESSURE Rx Instructions: TAKE 1 TABLET BY MOUTH ONCE DAILY FOR BLOOD PRESSURE furosemide 40 mg tablet See Rx Instructions .ROUTE .COMPLEX Qty: 100 2RF Dose Instruction: TAKE 1 TABLET BY MOUTH DAILY DIRECTED FOR FLUID Rx Instructions: TAKE 1 TABLET BY MOUTH DAILY DIRECTED FOR FLUID insulin degludec [Tresiba FlexTouch U-100] 100 unit/mL (3 mL) insulin pen See Rx Instructions .ROUTE .COMPLEX Qty: 15 0RF Dose Instruction: INJECT 75 UNITS SUBCUTANEOUSLY AT BEDTIME Rx Instructions: INJECT 75 UNITS SUBCUTANEOUSLY AT BEDTIME Referrals Follow up/Referrals: Reva Lou PA [Primary Care Provider] - See instructions Activity Restrictions/Add. Instructions Additional Instructions/Restrictions: At this time it was felt you are safe to be discharged home. If new or worsening symptoms please do not hesitate to return the emergency department. Please follow-up with Dr. Albright's office at 1 PM tomorrow, tell them you were seen in the emergency department and this is when Dr. Albright wanted you seen when you arrive to clinic. Clinical Impressions Clinical Impression: Chest pain Discharge ED Provider: Sid Juan HPI General Chief Complaint: Chest Pain Stated Complaint: chest pain Time Seen by Provider: 10/27/23 11:08 Mode of Arrival: Ambulatory Source of Information: Patient Limitations: No Limitations Description of Symptoms (Recalled from ER Triage Doc. by RN): pt reports to ed with c/o pressure underneath bilateral arm pits ongoing since 1030 am History of Present Illness HPI narrative: Patient is a 68-year-old female with past medical history of COPD not on oxygen, [id number]-fbyukverd diabetes, acid reflux, paroxysmal atrial fibrillation on anticoagulation, coronary artery disease status post stenting who presents emergency department for evaluation of atypical chest pain. Onset was acute, approximately 1 to 2 hours prior to arrival, pressure in her armpits radiating through her mid sternum. It does not go through to her back. No trauma. No other acute complaints at this time. Related Data Home Medications Medication Instructions Recorded Confirmed insulin lispro 100 unit/mL 1 sliding scale dose SQ QAC 03/19/23 10/23/23 subcutaneous pen Diabetes tirzepatide 10 mg/0.5 mL 10 mg SQ DIRECTED 07/17/23 10/23/23 subcutaneous pen injector (Laney) gabapentin enacarbil 600 mg 600 mg PO DIRECTED 08/14/23 10/23/23 tablet,extended release (Horizant ER) montelukast 10 mg tablet 10 mg PO DAILY 09/12/23 10/23/23 Previous Rx's Medication Instructions Recorded bupropion HCl 150 mg tablet,12 hr See Rx Instructions .Route 01/28/23 sustained-release .COMPLEX #180 tabs clopidogrel 75 mg tablet See Rx Instructions .Route 02/14/23 .COMPLEX Blood thinner #100 tabs ferrous fumarate 456 mg (150 mg 456 mg PO DAILY Iron metabolism 03/14/23 iron) tablet (Ferrimin 150) disorder #30 tabs fluticasone propionate 50 See Rx Instructions .Route 03/18/23 mcg/actuation nasal .COMPLEX #48 grams spray,suspension meclizine 25 mg tablet See Rx Instructions .Route 03/18/23 .COMPLEX #90 tabs pen needle, diabetic 31 gauge x #100 ea 03/25/23 3/16 (BD Ultra-Fine Mini Pen Needle) ropinirole 4 mg tablet See Rx Instructions .Route 03/26/23 .COMPLEX #180 tabs albuterol sulfate 1.25 mg/3 mL 1.25 mg (3 mL) inhalation QID PRN 06/06/23 solution for nebulization shortness of breath or wheezing #90 mL diclofenac sodium 1 % topical gel 2 g topical QID #100 grams 07/01/23 (Arthritis Pain (diclofenac)) cholecalciferol (vitamin D3) 50 50 mcg PO DAILY #90 caps 07/12/23 mcg (2,000 unit) capsule ergocalciferol (vitamin D2) 1,250 1,250 mcg PO WEEKLY #14 caps 07/12/23 mcg (50,000 unit) capsule evolocumab 140 mg/mL subcutaneous 140 mg SQ Q2W #2 mL 07/17/23 pen injector (Anurag Munson) losartan 50 mg tablet 50 mg PO DAILY #100 tabs 07/17/23 ranolazine 500 mg tablet,extended 500 mg PO BID #60 tabs 07/25/23 release,12 hr dapagliflozin propanediol 10 mg See Rx Instructions .Route 07/30/23 tablet .COMPLEX #90 tabs isosorbide mononitrate 30 mg 30 mg PO DAILY #30 tabs 08/12/23 tablet,extended release 24 hr buspirone 30 mg tablet See Rx Instructions .Route 08/16/23 .COMPLEX #200 tabs triamcinolone acetonide 0.025 % See Rx Instructions .Route 08/19/23 topical cream .COMPLEX #60 grams flecainide 100 mg tablet See Rx Instructions .Route 09/02/23 .COMPLEX #200 tabs trazodone 50 mg tablet 50 mg PO QHS #90 tabs 09/12/23 famotidine 20 mg tablet See Rx Instructions .Route 09/30/23 .COMPLEX #100 tabs metoprolol succinate 25 mg See Rx Instructions .Route 09/30/23 tablet,extended release 24 hr .COMPLEX #100 tabs rivaroxaban 20 mg tablet (Xarelto) See Rx Instructions .Route 09/30/23 .COMPLEX #100 tabs furosemide 40 mg tablet See Rx Instructions .Route 10/07/23 .COMPLEX #100 tabs insulin degludec 100 unit/mL (3 See Rx Instructions .Route 10/21/23 mL) subcutaneous pen (Tresiba .COMPLEX #15 mL FlexTouch U-100 insulin) albuterol sulfate 90 mcg/actuation 2 puff inhalation Q6H #8.5 grams 10/23/23 aerosol inhaler (Proventil HFA) blood-glucose sensor (Dexcom G7 #14 ea 10/23/23 Sensor device) dexlansoprazole 60 mg See Rx Instructions .Route 10/23/23 capsule,biphase delayed release .COMPLEX #90 caps (Dexilant) memantine 7 mg capsule See Rx Instructions .Route 10/23/23 sprinkle,extended release 24hr .COMPLEX #90 caps sertraline 100 mg tablet See Rx Instructions .Route 10/23/23 .COMPLEX Anxiety #90 tabs Allergies Allergy/AdvReac Type Severity Reaction Status Date / Time canagliflozin [From Invokana] Allergy Severe blisters Verified 10/23/23 10:13 metformin Allergy Mild Diarrhea, Verified 10/23/23 10:13 nausea, dizziness sitagliptin [From Januvia] Allergy Mild Hives Verified 10/23/23 10:13 linaclotide [From Linzess] Allergy Rash Verified 10/23/23 10:13 metronidazole [From Metrogel] Allergy Rash Verified 10/23/23 10:13 nystatin Allergy Dizziness Verified 10/23/23 10:13 rosuvastatin [From Crestor] Allergy Unknown Verified 10/23/23 10:13 allergy reaction semaglutide [From Ozempic] AdvReac Severe Abdominal Verified 10/23/23 10:13 Pain atorvastatin [From Lipitor] AdvReac Intermediate body aches Verified 10/23/23 10:13 andmental confusion imdur AdvReac Mild headache Uncoded 10/23/23 10:13 PFSH PFS Disclaimer: The information contained in this section may have been updated after the patient was seen, as this information can be updated by other users. Medical History Labile essential hypertension TOMAS (obstructive sleep apnea) Noncompliant with CPAP. She was advised to work on lifestyle modification, weight loss, (she has lost 8 pounds since last appointment). Ear itching Vomiting Bilateral impacted cerumen Allergic rhinitis Breast cyst left removed Ganglion cyst left wrist Dermoid cyst of head removed Diabetes mellitus, type 2 Neck pain Moderate mitral regurgitation Dizziness Mood disorder Obesity HTN (hypertension) COPD (chronic obstructive pulmonary disease) GERD (gastroesophageal reflux disease) Neuropathy Anxiety Restless leg syndrome Most likely secondary RLS in a patient with history of diabetes mellitus and peripheral neuropathy. She has signs and symptoms suggestive of augmentation, (worsening of RLS despite of increasing doses dopamine agonist and most recently carbidopa/levodopa). Surgical History Status post trigger finger release History of cholecystectomy History of hysterectomy History of colonoscopy Family History Other Family history of Alzheimer's disease Family history of myocardial infarction Social History Smoking Status: Former smoker tobacco type: cigarettes packs per day: 1 second hand exposure: Yes alcohol intake: never counseling provided: provider counseling substance use type: denies use current occupational status: other Travel in the last 8 weeks: None household members: children housing: house lives independently: Yes marital status: legally education level: high school current occupational exposures/hazards: No caffeine: Yes special lex needs: No agree to transfusion: No do you feel safe at home: Yes victim of physical abuse: No victim of emotional abuse: No victim of sexual abuse: No would you like helpful sources: No ROS Obtained: Yes Systems reviewed as appropriate & no additional complaints except as documented Physical Exam General General appearance: alert and in no apparent distress Head Head exam: atraumatic and normocephalic Eye Eye exam: Present PERRL ENT ENT exam: Present mucous membranes moist Neck Neck exam: Present normal inspection Chest Chest inspection: Present normal inspection and symmetric chest wall rise Respiratory Respiratory exam: Present normal lung sounds bilaterally; Absent respiratory distress Cardiovascular Cardiovascular exam: Present regular rate and normal rhythm Abdominal Exam Abdominal exam: Present soft; Absent tenderness Extremities Exam Extremities exam: Present normal inspection Neurological Exam Neurological exam: Present alert Psychiatric Psychiatric exam: Present normal affect Skin Skin exam: Present warm and dry HEART Score HEART Score HEART Score assessment performed?: Yes History (anamnesis): Moderately suspicious ECG: Normal Age: >65 years Risk factors: Atherosclerosis history Troponin: </= normal limit HEART Score: 5 Critical Care Critical Care Time Critical Care Time: No Medical Decision Making Marco A Inquiry Pt receiving controlled substance: No Vital Signs Vital Signs: 10/27/23 11:06 10/27/23 11:31 10/27/23 12:00 Temperature 98.4 F Temperature Source Oral Pulse Rate 72 79 Pulse Rate [Left Radial] 75 Respiratory Rate 19 9 L 18 Blood Pressure 147/70 H 150/49 H Blood Pressure [Right Arm] 191/87 H Blood Pressure Mean [Right Arm] 121 02 Sat by Pulse Oximetry 95 93 L 92 L Oxygen Delivery Method Room Air 10/27/23 12:30 10/27/23 13:00 10/27/23 13:30 Temperature Temperature Source Pulse Rate 74 72 Pulse Rate [Left Radial] Respiratory Rate 13 10 L 19 Blood Pressure 123/68 120/71 96/64 L Blood Pressure [Right Arm] Blood Pressure Mean [Right Arm] 02 Sat by Pulse Oximetry 90 L 94 L Oxygen Delivery Method Lab Data Labs: Lab Results 10/27/23 11:09: WBC 8.6, RBC 5.13, Hgb 15.4, Hct 48.4 H, MCV 94.2, MCH 30.1, MCHC 31.9, RDW 14.3, Plt Count 291, MPV 7.7, Neut % (Auto) 68.5, Lymph % (Auto) 23.9, [place] % (Auto) 5.3, Eos % (Auto) 1.2, Baso % (Auto) 1.1, Neut # (Auto) 5.9, Lymph # (Auto) 2.1, [place] # (Auto) 0.5, Eos # (Auto) 0.1, Baso # (Auto) 0.1, D- Dimer 0.34, Sodium 140, Potassium 3.9, Chloride 100, Carbon Dioxide 32 H, Anion Gap 11.9, BUN 19 H, Creatinine 1.00, Estimated Creat Clear 92, Estimated GFR 55 L, Est GFR ( Amer) 66, Glucose 137 H, Calcium 9.8, Total Bilirubin 0.6, AST 27, ALT 23, Alkaline Phosphatase 117, Troponin I < 0.01, Total Protein 7.7, Albumin 4.1, Globulin 3.6 H, Albumin/Globulin Ratio 1.1 10/27/23 14:06: Troponin I < 0.01 10/27/23 11:09 10/27/23 11:09 Response Orders (Tests/Meds): ED MEDICATIONS Discontinued Medications Generic Name Dose Route Start Last Admin Trade Name Freq PRN Reason Stop Dose Admin Aspirin 324 mg 10/27/23 11:17 10/27/23 11:38 Aspirin 81mg Chewable Tablet PO 10/27/23 11:18 324 mg ONCE ONE Administration Belladonna Alkaloids 60 ml 10/27/23 11:18 10/27/23 11:36 Belladonna Alkaloids 60 Ml Ml PO 10/27/23 11:19 60 ml ONCE ONE Administration ORDERS Category Date Time Status CXR --portable [XR chest portable] Stat Exams 10/27/23 11:17 Completed CBC w/Auto Diff [Complete Blood Count Auto Diff] Stat Lab 10/27/23 11:09 Completed CMP [Comprehensive Metabolic Panel] Stat Lab 10/27/23 11:09 Completed D-Dimer Stat Lab 10/27/23 11:09 Completed Trop I [Troponin I] Stat Lab 10/27/23 11:09 Completed Troponin I Q3H Lab 10/27/23 14:06 Completed Troponin I Q3H Lab 10/27/23 17:30 Ordered ECG Data Tracing #1: ECG Narrative: Independently interpreted by me, rate 77, rhythm is regular, axis is normal, no ST elevation in anatomical contiguous leads, QTc 418. Tracing #2: ECG Narrative: Independently interpreted by me, rate is 77, rhythm is regular, axis is normal, no ST elevation in anatomical contiguous leads, QTc 443. MDM Narrative Medical Decision Narrative: In summary patient is a 5-year-old female past medical history described above who presents emergency department for evaluation of atypical chest pain. Patient is hemodynamically stable nontoxic-appearing upon arrival, afebrile. Differential includes ACS, noncardiac chest pain, pulmonary embolism, aortic dissection, among others. Workup will be conducted with hematologic labs, chest x-ray, EKG, serial troponin, D-dimer. Initial inventions include aspirin, GI cocktail. Initial workup reviewed by me, hematologic labs are nonactionable, D- dimer excludes low risk aortic dissection as well as pulmonary embolism, initial troponin undetectably low, no CAREY or critical electrolyte abnormality. The patient was placed in observation status at 12:30 PM. Medical necessity for observational status is serial troponins. The patient was provided serial reevaluations and cardiac monitoring while awaiting results. Results of testing during observation show serial troponins are undetectably low and no dynamic ECG changes. Because of this I feel patient can be discharged with outpatient follow-up with cardiology tomorrow at 1 PM. Total time in observation 2 hours 37 minutes
[2023-10-27] MEDS: BELLADONNA ALKALOIDS 60 ML ML PO (11:36)
[2023-10-27] MEDS: ASPIRIN 81MG CHEWABLE TABLET 324 MG PO (11:38)
[2023-10-27 11:48] LABS: Basophils # 0.1 K/mm3 (0-0.2); Basophils % 1.1 % (0.1-2.0); Chloride 100 mmol/L (98-107); Eosinophils # 0.1 K/mm3 (0.0-0.4); Eosinophils % 1.2 % (0.1-12.0); Hematocrit 48.4 % (37.0-47.0); Hemoglobin 15.4 g/dL (12.2-16.2); Lymphocytes # 2.1 K/mm3 (0.7-4.5); Lymphocytes % 23.9 % (10-50); Mean Corpuscular HGB Conc 31.9 g/dL (31.8-35.4); Mean Corpuscular Hemoglobin 30.1 pg (27.0-31.2); Mean Corpuscular Volume 94.2 fl (81-99); Mean Platelet Volume 7.7 fl (7.4-10.4); Monocytes # 0.5 K/mm3 (0.1-1.0); Monocytes % 5.3 % (1.7-9.3); Neutrophils # 5.9 K/mm3 (1.8-7.8); Neutrophils % 68.5 % (37.0-80.0); Platelet Count 291 K/mm3 (142-424); Red Blood Count 5.13 M/mm3 (4.20-5.40); Red Cell Distribution Width 14.3 % (11.5-17.5); White Blood Count 8.6 K/mm3 (4.8-10.8)
[2023-10-27 11:49] LABS: Potassium 3.9 mmoL/L (3.5-5.1); Sodium 140 mmol/L (136-145)
[2023-10-27 11:51] LABS: Alanine Aminotransferase 23 U/L (12-78); Alkaline Phosphatase 117 U/L (38-126); Aspartate Amino Transferase 27 U/L (14-36); Bilirubin,Total 0.6 mg/dl (0.2-1.3); Blood Urea Nitrogen 19 mg/dl (7-17); Creatinine Clearance Estimated 92 mL/min (50-200); Estimated Glomerular Filt Rate 55 ml/min (>60); GFR (African American) 66 ML/MIN (>60)
[2023-10-27 11:52] LABS: Albumin Level 4.1 g/dl (3.5-5.0); Albumin/Globulin Ratio 1.1 (1.1-1.8); Anion Gap 11.9 mEq/L (5-15); Calcium 9.8 mg/dl (8.4-10.2); Carbon Dioxide 32 mmol/L (22.0-30.0); Globulin 3.6 g/dL (1.3-3.2); Glucose 137 mg/dl (74-100); Total Protein,Serum 7.7 g/dl (6.3-8.2)
[2023-10-27 11:57] LABS: D-Dimer 0.34 ug/mL (0.0-0.5)
[2023-10-27 12:04] LABS: Troponin I < 0.01 ng/ml (0.00-0.034)
--- NOTE | 2023-10-27 14:08 | ECG_ITS ---
APPROVED REPORT Exam: Resting ECG HR:77 bpm ECG Measurements Heart Rate 77 AXES AK 207 P 55 QRSd 99 QRS 57 QT 412 T 17 QTc 443 Conclusion SINUS RHYTHM PROBABLE INFERIOR MYOCARDIAL INFARCTION , PROBABLY OLD [35 ms Q WAVE IN II/aVF] ABNORMAL ECG Electronically signed by : FIONA POWER, 10/28/2023 22:34:02
[2023-10-27 14:52] LABS: Troponin I < 0.01 ng/ml (0.00-0.034)
== END 2023-10-27 15:33 | disposition home or self-care (01) ==
PROVIDERS: Emergency Provider Emergency Medicine; PCP Physician Assistant
DX: R07.89 Other chest pain (principal); J44.9 Chronic obstructive pulmonary disease, unspecified; E11.9 Type 2 diabetes mellitus without complications; K21.9 Gastro-esophageal reflux disease without esophagitis; I48.0 Paroxysmal atrial fibrillation; I11.9 Hypertensive heart disease without heart failure; I25.10 Atherosclerotic heart disease of native coronary artery without angina pectoris; Z95.5 Presence of coronary angioplasty implant and graft; Z79.4 Long term (current) use of insulin; Z79.85 Long-term (current) use of injectable non-insulin antidiabetic drugs; Z87.891 Personal history of nicotine dependence
CPT/HCPCS: 71045; 80053; 84484; 85025; 85378; 93005; 99284

== ENCOUNTER 2023-11-30 13:40 | Emergency (ER) | payer MEDICARE, MEDICAID, SELFPAY ==
[2023-11-30] VITALS (8 sets, daily range): BP systolic 126–169; BP diastolic 55–100; PULSE 64–79; RESP 17–20; TEMP 36.7–37; O2SAT 92–98; BMI 41.5
--- NOTE | 2023-11-30 13:39 | ECG_ITS ---
APPROVED REPORT Exam: Resting ECG HR:79 bpm ECG Measurements Heart Rate 79 AXES MD 180 P 70 QRSd 101 QRS 79 QT 394 T 58 QTc 428 Conclusion SINUS RHYTHM NORMAL ECG UNCONFIRMED REPORT Electronically signed by : Corey Nroth, 11/30/2023 15:36:19
--- NOTE | 2023-11-30 14:37 | XR_ITS ---
PROCEDURE INFORMATION: Exam: XR Chest Exam date and time: 11/30/2023 2:36 PM Age: 68 years old Clinical indication: Other: Chest pain TECHNIQUE: Imaging protocol: Radiologic exam of the chest. Views: 1 view. COMPARISON: CR XR CHEST PORTABLE 10/27/2023 11:28 AM FINDINGS: Lungs: Unremarkable. No consolidation. Pleural spaces: Unremarkable. No pleural effusion. No pneumothorax. Heart/Mediastinum: Unremarkable. No cardiomegaly. Bones/joints: Unremarkable. IMPRESSION: No evidence of acute cardiopulmonary disease.
[2023-11-30 14:47] LABS: Chloride 102 mmol/L (98-107); Potassium 4.7 mmoL/L (3.5-5.1); Sodium 139 mmol/L (136-145)
[2023-11-30 14:49] LABS: Basophils # 0.1 K/mm3 (0-0.2); Basophils % 0.9 % (0.1-2.0); Eosinophils # 0.2 K/mm3 (0.0-0.4); Hematocrit 42.7 % (37.0-47.0); Lymphocytes # 1.7 K/mm3 (0.7-4.5); Mean Corpuscular HGB Conc 32.6 g/dL (31.8-35.4); Mean Corpuscular Hemoglobin 30.4 pg (27.0-31.2); Mean Corpuscular Volume 93.3 fl (81-99); Mean Platelet Volume 7.6 fl (7.4-10.4); Monocytes # 0.4 K/mm3 (0.1-1.0); Monocytes % 4.5 % (1.7-9.3); Neutrophils # 7.1 K/mm3 (1.8-7.8); Neutrophils % 74.6 % (37.0-80.0); Platelet Count 263 K/mm3 (142-424); Red Blood Count 4.58 M/mm3 (4.20-5.40); Red Cell Distribution Width 13.9 % (11.5-17.5); White Blood Count 9.5 K/mm3 (4.8-10.8)
[2023-11-30 14:50] LABS: Alanine Aminotransferase 20 U/L (12-78); Albumin Level 3.6 g/dl (3.5-5.0); Albumin/Globulin Ratio 1.1 (1.1-1.8); Alkaline Phosphatase 106 U/L (38-126); Anion Gap 7.7 mEq/L (5-15); Aspartate Amino Transferase 27 U/L (14-36); Bilirubin,Total 0.3 mg/dl (0.2-1.3); Blood Urea Nitrogen 21 mg/dl (7-17); Carbon Dioxide 34 mmol/L (22.0-30.0); Creatinine Clearance Estimated 47 mL/min (50-200); Estimated Glomerular Filt Rate 62 ml/min (>60); GFR (African American) 75 ML/MIN (>60); Globulin 3.4 g/dL (1.3-3.2)
[2023-11-30 14:51] LABS: Calcium 9.1 mg/dl (8.4-10.2); Glucose 241 mg/dl (74-100)
[2023-11-30 15:07] LABS: Troponin I < 0.01 ng/ml (0.00-0.034)
--- NOTE | 2023-11-30 15:14 | CT_ITS ---
PROCEDURE INFORMATION: Exam: CTA Chest With Contrast Exam date and time: 11/30/2023 3:59 PM Age: 68 years old Clinical indication: Shortness of breath; Additional info: Chest pain, SOA TECHNIQUE: Imaging protocol: Computed tomographic angiography of the chest with contrast. Exam focused on the arteries. 3D rendering (Not supervised by radiologist): MIP and/or 3D reconstructed images were created by the technologist. Radiation optimization: All CT scans at this facility use at least one of these dose optimization techniques: automated exposure control; mA and/or kV adjustment per patient size (includes targeted exams where dose is matched to clinical indication); or iterative reconstruction. Contrast material: ISOVUE; Contrast volume: 75 ml; Contrast route: INTRAVENOUS (IV); COMPARISON: CT CHEST WO CON 07/20/2023 12:47 PM FINDINGS: Pulmonary arteries: There is suboptimal opacification of pulmonary arteries due to contrast bolus timing. Aorta: Regions of atherosclerotic vascular calcification involving the aortic arch. Lungs: Densely calcified granuloma right lung base. Bilateral ground-glass regions of opacification. Findings nonspecific however most likely reflect interstitial lung disease. An acute inflammatory process could not be entirely excluded. Pulmonary nodules measuring 3 mm or less in the left upper lobe. Regions of subsegmental atelectasis demonstrated in the left lingula. Pleural spaces: Unremarkable. No pneumothorax. No pleural effusion. Heart: Calcified mitral valve. Heart RV/LV ratio: 0.8 Coronary arteries: Coronary artery calcification Lymph nodes: Calcified right hilar adenopathy Bones/joints: Unremarkable. No acute fracture. Soft tissues: Unremarkable. Other findings: Study limited by technique. Standard coronal and sagittal reformatted images have not been submitted for review at the time of this dictation. IMPRESSION: 1. No large or central pulmonary embolus. Evaluation of the peripheral pulmonary arteries is limited. 2. Pulmonary nodules measuring 3 mm or less in the left upper lobe. 3. Regions of subsegmental atelectasis demonstrated in the left lingula. Mild regions of bronchiectasis at the lung bases. 4. Limited study secondary to technique. 5. Evidence of prior granulomatous disease 6. Recommend follow-up CT Chest in 6-12 months. (References: Talia) REFERENCES: 1. Gurmeet Hart, et al. Guidelines for Management of Incidental Pulmonary Nodules Detected on CT Images: From the Fleischner Society 2017. Radiology. 2017;284(1):228-243. 2. Karin J, et al. Updated Fleischner Society Guidelines for Managing Incidental Pulmonary Nodules: Common Questions and Challenging Scenarios. Radiographics. 2018;38(5):6633-8454.
[2023-11-30 15:26] LABS: Magnesium 1.9 mg/dl (1.6-2.3)
[2023-11-30 15:29] LABS: INR 1.18 (0.9-1.1)
[2023-11-30 15:36] LABS: NT Pro Brain Natriuretic Pep. 997 pg/mL (0-125)
--- NOTE | 2023-11-30 15:41 | ED_ITS ---
Discharge Plan Disposition Patient Disposition: Home, Self-Care Condition: Good Prescriptions Prescriptions: No Action Ferrimin 150 456 mg (150 mg iron) tablet 456 mg PO DAILY Qty: 30 5RF Rx Instructions: 1 tab po qhs Mounjaro 10 mg/0.5 mL pen injector 10 mg SQ DIRECTED losartan 50 mg tablet 50 mg PO DAILY Qty: 100 2RF Repatha SureClick 140 mg/mL pen injector 140 mg SQ Q2W Qty: 2 2RF dexlansoprazole [Dexilant] 60 mg capsule,biphase delayed releas See Rx Instructions .ROUTE .COMPLEX Qty: 90 3RF Dose Instruction: TAKE 1 CAPSULE BY MOUTH ONCE DAILY FOR STOMACH Rx Instructions: TAKE 1 CAPSULE BY MOUTH ONCE DAILY FOR STOMACH (DME) Dexcom G7 Sensor Device See Rx Instructions .Route Qty: 14 3RF Rx Instructions: As directed albuterol sulfate [Proventil HFA] 90 mcg/actuation HFA aerosol inhaler 2 puff inhalation Q6H Qty: 8.5 5RF Rx Instructions: administer with spacer memantine 7 mg capsule,sprinkle,ER 24hr See Rx Instructions .ROUTE .COMPLEX Qty: 90 3RF Dose Instruction: TAKE 1 CAPSULE BY MOUTH ONCE DAILY Rx Instructions: TAKE 1 CAPSULE BY MOUTH ONCE DAILY Xifaxan 550 mg tablet 550 mg PO TID 14 Days Qty: 42 0RF diclofenac sodium [Arthritis Pain (diclofenac)] 1 % gel 2 g topical QID Qty: 100 2RF Rx Instructions: apply to single elbow, wrist or hand; for hand includes palm/fingers/back of hand trazodone 50 mg tablet 50 mg PO QHS Qty: 90 0RF aripiprazole [Abilify] 5 mg tablet 5 mg PO HS Qty: 30 2RF desvenlafaxine succinate [Pristiq] 100 mg tablet extended release 24 hr 100 mg PO DAILY Qty: 30 2RF clopidogrel 75 mg tablet See Rx Instructions .ROUTE .COMPLEX Qty: 100 3RF Hold Instructions: Resume on 01/10/23. Rx Instructions: TAKE 1 TABLET BY MOUTH ONCE DAILY meclizine 25 mg tablet See Rx Instructions .ROUTE .COMPLEX Qty: 90 0RF Dose Instruction: TAKE 1 TABLET BY MOUTH 3 TIMES DAILY NEEDED FOR DIZZINESS Rx Instructions: TAKE 1 TABLET BY MOUTH 3 TIMES DAILY NEEDED FOR DIZZINESS fluticasone propionate 50 mcg/actuation spray,suspension See Rx Instructions .ROUTE .COMPLEX Qty: 48 0RF Dose Instruction: USE 2 SPRAYS IN BOTH NOSTRILS DAILY FOR BREATHING PROBLEMS Rx Instructions: USE 2 SPRAYS IN BOTH NOSTRILS DAILY FOR BREATHING PROBLEMS insulin lispro 100 unit/mL insulin pen 1 sliding scale dose SQ QAC Patient Comments: 125-150 6 units 150-200 8 units over 200 10 units (DME) pen needle, diabetic [BD Ultra-Fine Mini Pen Needle] 31 gauge x 3/16 needle See Rx Instructions .ROUTE .COMPLEX Qty: 100 0RF Dose Instruction: USE THREE TIMES DAILY DIRECTED FOR DIABETES Rx Instructions: USE THREE TIMES DAILY DIRECTED FOR DIABETES ropinirole 4 mg tablet See Rx Instructions .ROUTE .COMPLEX Qty: 180 3RF Dose Instruction: TAKE 1 TABLET BY MOUTH TWICE DAILY FOR LEGS Rx Instructions: TAKE 1 TABLET BY MOUTH TWICE DAILY FOR LEGS albuterol sulfate 1.25 mg/3 mL solution for nebulization 1.25 mg INHALATION QID PRN (Reason: shortness of breath or wheezing) Qty: 90 0RF ergocalciferol (vitamin D2) 1,250 mcg (50,000 unit) capsule 1,250 mcg PO WEEKLY Qty: 14 3RF cholecalciferol (vitamin D3) 50 mcg (2,000 unit) capsule 50 mcg PO DAILY Qty: 90 3RF dapagliflozin propanediol 10 mg tablet See Rx Instructions .ROUTE .COMPLEX Qty: 90 0RF Dose Instruction: Take 1 tablet by mouth once daily Rx Instructions: Take 1 tablet by mouth once daily isosorbide mononitrate 30 mg tablet extended release 24 hr 30 mg PO DAILY Qty: 30 2RF triamcinolone acetonide 0.025 % cream See Rx Instructions .ROUTE .COMPLEX Qty: 60 0RF Dose Instruction: APPLY CREAM TOPICALLY TWICE DAILY Rx Instructions: APPLY CREAM TOPICALLY TWICE DAILY flecainide 100 mg tablet See Rx Instructions .ROUTE .COMPLEX Qty: 200 2RF Dose Instruction: TAKE 1 TABLET BY MOUTH EVERY 12 HOURS FOR AFIB Rx Instructions: TAKE 1 TABLET BY MOUTH EVERY 12 HOURS FOR AFIB famotidine 20 mg tablet See Rx Instructions .ROUTE .COMPLEX Qty: 100 2RF Dose Instruction: TAKE 1 TABLET BY MOUTH AT BEDTIME FOR STOMACH Rx Instructions: TAKE 1 TABLET BY MOUTH AT BEDTIME FOR STOMACH Xarelto 20 mg tablet See Rx Instructions .ROUTE .COMPLEX Qty: 100 2RF Dose Instruction: TAKE 1 TABLET BY MOUTH DAILY FOR BLOOD THINNER Rx Instructions: TAKE 1 TABLET BY MOUTH DAILY FOR BLOOD THINNER metoprolol succinate 25 mg tablet extended release 24 hr See Rx Instructions .ROUTE .COMPLEX Qty: 100 2RF Dose Instruction: TAKE 1 TABLET BY MOUTH ONCE DAILY FOR BLOOD PRESSURE Rx Instructions: TAKE 1 TABLET BY MOUTH ONCE DAILY FOR BLOOD PRESSURE furosemide 40 mg tablet See Rx Instructions .ROUTE .COMPLEX Qty: 100 2RF Dose Instruction: TAKE 1 TABLET BY MOUTH DAILY DIRECTED FOR FLUID Rx Instructions: TAKE 1 TABLET BY MOUTH DAILY DIRECTED FOR FLUID insulin degludec 100 unit/mL (3 mL) insulin pen See Rx Instructions .ROUTE .COMPLEX Qty: 15 0RF Dose Instruction: INJECT 75 UNITS SUBCUTANEOUSLY AT BEDTIME Rx Instructions: INJECT 75 UNITS SUBCUTANEOUSLY AT BEDTIME ranolazine 500 mg tablet extended release 12 hr 500 mg PO BID Qty: 60 3RF montelukast 10 mg tablet See Rx Instructions .ROUTE .COMPLEX Qty: 90 3RF Dose Instruction: TAKE 1 TABLET BY MOUTH AT BEDTIME NIGHTLY Rx Instructions: TAKE 1 TABLET BY MOUTH AT BEDTIME NIGHTLY Horizant 600 mg tablet extended release 600 mg PO HS Qty: 30 2RF Referrals Follow up/Referrals: Reva Lou PA [Primary Care Provider] - See instructions Activity Restrictions/Add. Instructions Additional Instructions/Restrictions: You were evaluated in the emergency department today. At this time, you are found to have incidental pulmonary nodules on CT scan, for which I recommend close follow-up with your primary care provider for reassessment to make sure they do not enlarge. It is possible your symptoms could be related to acid reflux since they got better with a GI cocktail. I recommend follow-up with your primary care provider for monitoring of this as well. 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 Return to the emergency department for new or worsening symptoms. Clinical Impressions Clinical Impression: Chest pain, Pulmonary nodule Instructions Patient Instructions: DI for Atypical Chest Pain Discharge ED Provider: Sol Pruitt [facility] General Chief Complaint: Chest Pain Stated Complaint: Chest Pain Time Seen by Provider: 11/30/23 15:00 Mode of Arrival: Wheelchair Source of Information: Patient Limitations: No Limitations Description of Symptoms (Recalled from ER Triage Doc. by RN): Patient reports stomach bloating, SOB and intermitten chest pains. History of Present Illness HPI narrative: This patient is a 68-year-old female with a history of CAD status post stenting, obesity, diabetes, diabetic gastroparesis, COPD, hypertension, hyperlipidemia, CHF on diuretics, atrial fibrillation on Xarelto, GERD, anxiety, and hiatal hernia presenting to the emergency department for evaluation with concern for chest pain. Patient reports that she woke up this morning with chest pain, abdominal bloating, and shortness of breath, especially with exertion. She states that the last time this happened, she had fluid buildup around her heart. She notes she is on a diuretic at home and has been compliant with this. She does note a cough that is mild, however no fevers, chills, significant abdominal pain, nausea, vomiting, changes to bowel movements, or other concerns. She states she is currently feeling a little bit better, overall just weak. Related Data Home Medications Medication Instructions Recorded Confirmed insulin lispro 100 unit/mL 1 sliding scale dose SQ QAC 03/19/23 11/13/23 subcutaneous pen Diabetes tirzepatide 10 mg/0.5 mL 10 mg SQ DIRECTED 07/17/23 11/13/23 subcutaneous pen injector (Laney) Previous Rx's Medication Instructions Recorded clopidogrel 75 mg tablet See Rx Instructions .Route 02/14/23 .COMPLEX Blood thinner #100 tabs ferrous fumarate 456 mg (150 mg 456 mg PO DAILY Iron metabolism 03/14/23 iron) tablet (Ferrimin 150) disorder #30 tabs fluticasone propionate 50 See Rx Instructions .Route 03/18/23 mcg/actuation nasal .COMPLEX #48 grams spray,suspension meclizine 25 mg tablet See Rx Instructions .Route 03/18/23 .COMPLEX #90 tabs pen needle, diabetic 31 gauge x #100 ea 03/25/23 3/16 (BD Ultra-Fine Mini Pen Needle) ropinirole 4 mg tablet See Rx Instructions .Route 03/26/23 .COMPLEX #180 tabs albuterol sulfate 1.25 mg/3 mL 1.25 mg (3 mL) inhalation QID PRN 06/06/23 solution for nebulization shortness of breath or wheezing #90 mL diclofenac sodium 1 % topical gel 2 g topical QID #100 grams 07/01/23 (Arthritis Pain (diclofenac)) cholecalciferol (vitamin D3) 50 50 mcg PO DAILY #90 caps 07/12/23 mcg (2,000 unit) capsule ergocalciferol (vitamin D2) 1,250 1,250 mcg PO WEEKLY #14 caps 07/12/23 mcg (50,000 unit) capsule evolocumab 140 mg/mL subcutaneous 140 mg SQ Q2W #2 mL 07/17/23 pen injector (Anurag Munson) losartan 50 mg tablet 50 mg PO DAILY #100 tabs 07/17/23 dapagliflozin propanediol 10 mg See Rx Instructions .Route 07/30/23 tablet .COMPLEX #90 tabs isosorbide mononitrate 30 mg 30 mg PO DAILY #30 tabs 08/12/23 tablet,extended release 24 hr triamcinolone acetonide 0.025 % See Rx Instructions .Route 08/19/23 topical cream .COMPLEX #60 grams flecainide 100 mg tablet See Rx Instructions .Route 09/02/23 .COMPLEX #200 tabs trazodone 50 mg tablet 50 mg PO QHS #90 tabs 09/12/23 famotidine 20 mg tablet See Rx Instructions .Route 09/30/23 .COMPLEX #100 tabs metoprolol succinate 25 mg See Rx Instructions .Route 09/30/23 tablet,extended release 24 hr .COMPLEX #100 tabs rivaroxaban 20 mg tablet (Xarelto) See Rx Instructions .Route 09/30/23 .COMPLEX #100 tabs furosemide 40 mg tablet See Rx Instructions .Route 10/07/23 .COMPLEX #100 tabs albuterol sulfate 90 mcg/actuation 2 puff inhalation Q6H #8.5 grams 10/23/23 aerosol inhaler (Proventil HFA) blood-glucose sensor (Dexcom G7 #14 ea 10/23/23 Sensor device) dexlansoprazole 60 mg See Rx Instructions .Route 10/23/23 capsule,biphase delayed release .COMPLEX #90 caps (Dexilant) memantine 7 mg capsule See Rx Instructions .Route 10/23/23 sprinkle,extended release 24hr .COMPLEX #90 caps aripiprazole 5 mg tablet (Abilify) 5 mg PO HS #30 tabs 10/30/23 desvenlafaxine succinate 100 mg 100 mg PO DAILY #30 tabs 10/30/23 tablet,extended release 24 hr (Pristiq) rifaximin 550 mg tablet (Xifaxan) 550 mg PO TID 14 days #42 tabs 11/13/23 insulin degludec 100 unit/mL (3 See Rx Instructions .Route 11/18/23 mL) subcutaneous pen .COMPLEX #15 mL ranolazine 500 mg tablet,extended 500 mg PO BID #60 tabs 11/25/23 release,12 hr montelukast 10 mg tablet See Rx Instructions .Route 11/26/23 .COMPLEX #90 tabs gabapentin enacarbil 600 mg 600 mg PO HS #30 tabs 11/29/23 tablet,extended release (Horizant ER) Allergies Allergy/AdvReac Type Severity Reaction Status Date / Time canagliflozin [From Invokana] Allergy Severe blisters Verified 11/13/23 12:56 metformin Allergy Mild Diarrhea, Verified 11/13/23 12:56 nausea, dizziness sitagliptin [From Januvia] Allergy Mild Hives Verified 11/13/23 12:56 linaclotide [From Linzess] Allergy Rash Verified 11/13/23 12:56 metronidazole [From Metrogel] Allergy Rash Verified 11/13/23 12:56 nystatin Allergy Dizziness Verified 11/13/23 12:56 rosuvastatin [From Crestor] Allergy Unknown Verified 11/13/23 12:56 allergy reaction semaglutide [From Ozempic] AdvReac Severe Abdominal Verified 11/13/23 12:56 Pain atorvastatin [From Lipitor] AdvReac Intermediate body aches Verified 11/13/23 12:56 andmental confusion imdur AdvReac Mild headache Uncoded 11/13/23 12:56 [facility] Disclaimer: The information contained in this section may have been updated after the patient was seen, as this information can be updated by other users. Medical History Labile essential hypertension TOMAS (obstructive sleep apnea) Ear itching Vomiting Bilateral impacted cerumen Allergic rhinitis Breast cyst Ganglion cyst Dermoid cyst of head Diabetes mellitus, type 2 Neck pain Moderate mitral regurgitation Dizziness Mood disorder Obesity HTN (hypertension) COPD (chronic obstructive pulmonary disease) GERD (gastroesophageal reflux disease) Neuropathy Anxiety Restless leg syndrome Surgical History Status post trigger finger release History of cholecystectomy History of hysterectomy History of colonoscopy Family History Other Family history of Alzheimer's disease Family history of myocardial infarction Social History Smoking Status: Unknown if ever smoked second hand exposure: Yes alcohol intake: never counseling provided: provider counseling substance use type: denies use current occupational status: other Travel in the last 8 weeks: None household members: children housing: house lives independently: Yes marital status: legally education level: high school current occupational exposures/hazards: No caffeine: Yes special lex needs: No agree to transfusion: No do you feel safe at home: Yes victim of physical abuse: No victim of emotional abuse: No victim of sexual abuse: No would you like helpful sources: No ROS Obtained: Yes All systems reviewed & no additional complaints except as documented Physical Exam General General appearance: alert, in no apparent distress and obese Head Head exam: atraumatic and normocephalic Eye Eye exam: Present normal appearance, PERRL and EOMI ENT ENT exam: Present normal exam, normal oropharynx, mucous membranes moist and normal external ear exam Neck Neck exam: Present normal inspection, full ROM and trachea midline; Absent tenderness Chest Chest inspection: Present normal inspection and symmetric chest wall rise; Absent tenderness Respiratory Respiratory exam: Present normal lung sounds bilaterally; Absent respiratory distress, wheezes, stridor or accessory muscle use Cardiovascular Cardiovascular exam: Present regular rate and normal rhythm Abdominal Exam Abdominal exam: Present soft; Absent distention, tenderness or guarding Extremities Exam Extremities exam: Present normal inspection, full ROM and normal capillary refill; Absent tenderness or edema Back Exam Back exam: Present normal inspection and full ROM; Absent tenderness Neurological Exam Neurological exam: Present alert, oriented X3, CN II-XII intact and normal gait; Absent motor sensory deficit Psychiatric Psychiatric exam: Present normal affect and normal mood Skin Skin exam: Present warm and dry HEART Score HEART Score HEART Score assessment performed?: Yes History (anamnesis): Slightly suspicious ECG: Normal Age: >65 years Risk factors: Atherosclerosis history Troponin: </= normal limit HEART Score: 4 Critical Care Critical Care Time Critical Care Time: No Medical Decision Making [place] A Inquiry Pt receiving controlled substance: No Vital Signs Vital Signs: 11/30/23 13:42 11/30/23 13:48 11/30/23 15:00 Temperature 98.6 F Temperature Source Oral Pulse Rate 70 66 Pulse Rate [Radial] 79 Respiratory Rate 18 17 18 Blood Pressure 152/69 H 154/72 H Blood Pressure [Right Arm] 169/80 H Blood Pressure Mean [Right Arm] 109 Blood Pressure Source Automatic Cuff Blood Pressure Source [Right Arm] Automatic Cuff Blood Pressure Position Supine Blood Pressure Position [Right Arm] Sitting 02 Sat by Pulse Oximetry 95 92 L 95 Oxygen Delivery Method Room Air Room Air 11/30/23 15:31 11/30/23 16:31 11/30/23 17:52 Temperature Temperature Source Pulse Rate 65 64 Pulse Rate [Radial] Respiratory Rate 18 18 Blood Pressure 147/65 H 142/74 H 126/70 Blood Pressure [Right Arm] Blood Pressure Mean [Right Arm] Blood Pressure Source Blood Pressure Source [Right Arm] Blood Pressure Position Blood Pressure Position [Right Arm] 02 Sat by Pulse Oximetry 93 L 98 Oxygen Delivery Method Room Air Room Air 11/30/23 19:20 11/30/23 20:04 Temperature 98.1 F Temperature Source Oral Pulse Rate 67 68 Pulse Rate [Radial] Respiratory Rate 20 20 Blood Pressure 151/55 H 136/100 H Blood Pressure [Right Arm] Blood Pressure Mean [Right Arm] Blood Pressure Source Automatic Cuff Automatic Cuff Blood Pressure Source [Right Arm] Blood Pressure Position Supine Sitting Blood Pressure Position [Right Arm] 02 Sat by Pulse Oximetry 95 Oxygen Delivery Method Room Air Room Air Lab Data Labs: Lab Results 11/30/23 13:45: WBC 9.5, RBC 4.58, Hgb 14.0, Hct 42.7, MCV 93.3, MCH 30.4, MCHC 32.6, RDW 13.9, Plt Count 263, MPV 7.6, Neut % (Auto) 74.6, Lymph % (Auto) 18.0, Izard % (Auto) 4.5, Eos % (Auto) 2.0, Baso % (Auto) 0.9, Neut # (Auto) 7.1, Lymph # (Auto) 1.7, Izard # (Auto) 0.4, Eos # (Auto) 0.2, Baso # (Auto) 0.1, PT 13.0 H, INR 1.18 H, APTT 35.0 H, Sodium 139, Potassium 4.7, Chloride 102, Carbon Dioxide 34 H, Anion Gap 7.7, BUN 21 H, Creatinine 0.90, Estimated Creat Clear 47, Estimated GFR 62, Est GFR ( Amer) 75, Glucose 241 H, Calcium 9.1, Magnesium 1.9, Total Bilirubin 0.3, AST 27, ALT 20, Alkaline Phosphatase 106, Troponin I < 0.01, NT-Pro-B Natriuret Pep 997 H, Total Protein 7.0, Albumin 3.6, Globulin 3.4 H, Albumin/Globulin Ratio 1.1 11/30/23 16:24: Troponin I < 0.01 11/30/23 13:45 11/30/23 13:45 Response Orders (Tests/Meds): ED MEDICATIONS Discontinued Medications Generic Name Dose Route Start Last Admin Trade Name Freq PRN Reason Stop Dose Admin Belladonna Alkaloids 60 ml 11/30/23 18:10 11/30/23 18:29 Belladonna Alkaloids 60 Ml Ml PO 11/30/23 18:11 60 ml ONCE ONE Administration Iopamidol 75 ml 11/30/23 16:02 11/30/23 16:06 Iopamidol-370 (76%);100ml Bottle IV 11/30/23 16:03 75 ml ONCE ONE Administration Sodium Chloride 50 ml 11/30/23 16:02 11/30/23 16:06 0.9 % Sodium Chloride 50 Ml Vial IV 11/30/23 16:03 50 ml ONCE ONE Administration Sodium Chloride 10 ml 11/30/23 16:02 11/30/23 16:06 Sodium Chloride 0.9% 10ml Syr (Rad Only) IV 11/30/23 16:03 10 ml ONCE ONE Administration ORDERS Category Date Time Status CT abdomen pelvis w con Stat Cat Scan 11/30/23 15:44 Completed CTA Chest [CT angio chest PE protocol] Stat Cat Scan 11/30/23 15:14 Completed CXR --portable [XR chest portable] Stat Exams 11/30/23 14:37 Completed Activated Partial Thrombo Time Stat Lab 11/30/23 13:45 Completed BNP [NT Pro Brain Natriuretic Pep.] Stat Lab 11/30/23 13:45 Completed Complete Blood Count Auto Diff Stat Lab 11/30/23 13:45 Completed Comprehensive Metabolic Panel Stat Lab 11/30/23 13:45 Completed MAG [Magnesium] Stat Lab 11/30/23 13:45 Completed Prothrombin Time INR Stat Lab 11/30/23 13:45 Completed Troponin I Q3H Lab 11/30/23 16:24 Completed Troponin I Q3H Lab 11/30/23 20:45 Ordered Troponin I Stat Lab 11/30/23 13:45 Completed MDM Narrative Medical Decision Narrative: In summary, this patient is a 68-year-old female presenting to the Emergency Department for evaluation of chest pain, shortness of breath, and abdominal bloating. Differential diagnoses considered include but are not limited to bowel obstruction, gastroparesis, ACS, dysrhythmia, CHF exacerbation, volume overload, GERD, symptomatic hiatal hernia. Ruling out the most morbid conditions drove assessment. It should be noted patient's history includes extensive cardiac history as well as diabetes as per HPI which may or may not be at goal therapy. This complicates all aspects of care by increasing patient's risk for morbidity. I reviewed patient's past medical records and noted his cardiology evaluation. Last stenting was in 2019.. On exam, the patient is resting comfortably in bed. She has normal vital signs on cardiac telemetry with no significant hypoxia or tachycardia. Abdominal exam is benign. Workup included CBC, CMP, troponin, BNP, magnesium, PT, PTT, CT PE protocol, and CT abdomen pelvis with IV contrast. I independently interpreted CT scan prior to the radiologist read and noted no obvious large PE, no aortic pathology, and no obvious bowel obstruction. Please see their read for final interpretation. Labs were obtained that demonstrated troponins are negative x 2 without other acutely concerning abnormalities. At 1630, patient was placed in ED observation status pending second troponin and CT chest read to determine whether or not the patient would be appropriate for discharge versus admission. The patient was provided serial reevaluations and cardiac monitoring while awaiting ultimate disposition. On reassessment, patient had great improvement after administration of GI cocktail. She states that this significantly helped and she is feeling much better. Her symptoms could be related to GERD, as she notes she has issues with this in the past. Patient care was delayed because we waited for CT reads for prolonged time secondary to issue with communicating with V sylvia. Once final CT reads were back, patient was deemed to be appropriate for discharge after reassuring workup and exam and improved symptoms. She was resting comfortably with normal vital signs on multiple subsequent reassessments. Patient was given instructions for close outpatient follow-up, strict return precautions, and she was discharged in stable condition after all questions were answered. This was at 1930 after 3 hours in ED observation.
--- NOTE | 2023-11-30 15:44 | CT_ITS ---
PROCEDURE INFORMATION: Exam: CT Abdomen And Pelvis With Contrast Exam date and time: 11/30/2023 3:59 PM Age: 68 years old Clinical indication: Abdominal pain; Additional info: Abdominal bloating/pain TECHNIQUE: Imaging protocol: Computed tomography of the abdomen and pelvis with contrast. Radiation optimization: All CT scans at this facility use at least one of these dose optimization techniques: automated exposure control; mA and/or kV adjustment per patient size (includes targeted exams where dose is matched to clinical indication); or iterative reconstruction. Contrast material: ISOVUE; Contrast volume: 75 ml; Contrast route: IV; COMPARISON: CT ANGIO CHEST PE PROTOCOL 11/30/2023 3:59 PM FINDINGS: Liver: Decreased density throughout the liver compatible with hepatic steatosis. Gallbladder and biliary ducts: Cholecystectomy Pancreas: Pancreas unremarkable Spleen: The spleen is unremarkable. Splenic granulomas Adrenal glands: Adrenal glands unremarkable. Kidneys and ureters: Normal. No hydronephrosis. Stomach and bowel: moderate stool burden. Mild gastric wall thickening. Findings may be secondary to incomplete distension versus gastritis. Appendix: No evidence of appendicitis. Intraperitoneal space: Unremarkable. No free air. No significant fluid collection. Vasculature: Scattered regions of atherosclerotic vascular calcification within the abdominal aorta and common iliac arteries. Lymph nodes: Unremarkable. No enlarged lymph nodes. Urinary bladder: Unremarkable as visualized. Reproductive: Hysterectomy Bones/joints: Lumbar spondylosis with multilevel disc degeneration. Soft tissues: Bibasilar atelectasis versus parenchymal scarring. IMPRESSION: 1. No evidence of acute abnormality. 2. Mild gastric wall thickening. Findings may be secondary to incomplete distension versus gastritis.
--- NOTE | 2023-11-30 16:03 | PC.NURSE ---
Pt in CT
[2023-11-30] MEDS: 0.9 % SODIUM CHLORIDE 50 ML VIAL IV (16:06)
[2023-11-30] MEDS: IOPAMIDOL-370 (76%);100ML BOTTLE 75 ML IV (16:06)
[2023-11-30] MEDS: SODIUM CHLORIDE 0.9% 10ML SYR (RAD ONLY) 10 ML IV (16:06)
[2023-11-30 17:00] LABS: Troponin I < 0.01 ng/ml (0.00-0.034)
--- NOTE | 2023-11-30 17:07 | PC.NURSE ---
pt to the restroom
[2023-11-30] MEDS: BELLADONNA ALKALOIDS 60 ML ML PO (18:29)
--- NOTE | 2023-11-30 19:27 | PC.NURSE ---
patient concerned that O2 level is dropping, RN informed, pulse ox switched to adhesive and no issue with O2 level dropping. Patient given sandwich and drink
== END 2023-11-30 20:07 | disposition home or self-care (01) ==
PROVIDERS: Student in an Organized Health Care Education/Training Program; Emergency Provider Emergency Medicine; PCP Physician Assistant
DX: R07.9 Chest pain, unspecified (principal); R91.1 Solitary pulmonary nodule; R06.02 Shortness of breath; R14.0 Abdominal distension (gaseous); J44.9 Chronic obstructive pulmonary disease, unspecified; E11.9 Type 2 diabetes mellitus without complications; I10 Essential (primary) hypertension; K21.9 Gastro-esophageal reflux disease without esophagitis; Z79.4 Long term (current) use of insulin; Z79.85 Long-term (current) use of injectable non-insulin antidiabetic drugs
CPT/HCPCS: 71045; 71275; 74177; 80053; 83735; 83880; 84484; 85025; 85610; 85730; 93005; 99285; Q9967

== ENCOUNTER 2023-12-02 11:48 | Outpatient (CLI) | payer MEDICARE, MEDICAID, SELFPAY ==
--- NOTE | 2023-12-02 11:57 | XR_ITS ---
FINAL REPORT CLINICAL HISTORY: right hip pain FINDINGS: AP and frog leg views of the right hip were obtained. There is no prior exam for comparison. There is no acute fracture or dislocation. There is degenerative disease of the hips bilaterally. Soft tissues are within normal limits. IMPRESSION: Degenerative changes without acute osseous abnormality of the right hip. If pain persists, MR is recommended. Reviewed, Interpreted and Dictated by Susi Eason MD Transcribed by Jimena Ordonez Authenticated and . [facility]
== END 2023-12-02 23:59 | disposition home or self-care (01) ==
LOC: RAD 11:52
PROVIDERS: PCP Physician Assistant; Visit Provider Physician Assistant
DX: M25.551 Pain in right hip (principal)
CPT/HCPCS: 73502

== ENCOUNTER 2023-12-25 14:57 | Outpatient (CLI) | payer MEDICARE, MEDICAID, SELFPAY ==
--- NOTE | 2023-12-25 15:04 | MR_ITS ---
FINAL REPORT TECHNIQUE: Multiplanar MR imaging of the right hip was obtained with and without contrast. CLINICAL HISTORY: osteoarthritis FINDINGS: There is no evidence of fracture or dislocation. No bone marrow edema is seen. There are mild degenerative changes of the right hip. There is no significant joint effusion. No labral tear is seen. There are partial tears of the distal right gluteus minimus and medius tendons with peritendinitis. There is mild left gluteus minimus and medius peritendinitis. Contrast-enhancement is seen adjacent to the greater trochanters bilaterally, right greater than left consistent with inflammation. Patient is status post hysterectomy. IMPRESSION: Partial tears of the distal right gluteus minimus and medius tendons with peritendinitis. Mild left gluteus medius and minimus peritendinitis. Contrast enhancement adjacent to the greater trochanters consistent with inflammation. Reviewed, Interpreted and Dictated by Don Oritz III, MD Transcribed by Nayeli Cervantes Authenticated and [facility]
[2023-12-25] MEDS: GADOTERIDOL INJ 20ML SYRINGE 20 ML IV (16:21)
[2023-12-25] MEDS: SODIUM CHLORIDE 0.9% 10ML SYR (RAD ONLY) 10 ML IV (16:21)
[2023-12-25] MEDS: GADOTERIDOL INJ 10ML SYRINGE 2 ML IV (16:21)
== END 2023-12-25 23:59 | disposition home or self-care (01) ==
LOC: RAD 14:58
PROVIDERS: PCP Physician Assistant; Visit Provider Physician Assistant
DX: M19.90 Unspecified osteoarthritis, unspecified site (principal)
CPT/HCPCS: 73723; A9576

== ENCOUNTER 2024-01-27 11:00 | Outpatient (RCR) | payer MEDICARE, MEDICAID, SELFPAY ==
--- NOTE | 2024-01-17 18:48 | HMH.PTOPEV ---
PT Outpatient Evaluation Rehab PT Outpatient Evaluation Start: 01/17/24 10:31 Freq: Status: Active Protocol: Document 01/17/24 18:28 CICI (Rec: 01/17/24 18:47 CICI [id number]) E-signed By Wilmar Watters, PT Outpatient Therapy Subjective History Subjective History Patient is a 68 year old female presenting to outpatient PT with reports of R anterior hip pain. Symptoms have progressively gotten worse over the past 4 years. Significantly worse over the past year after a fall at home . Most recent imaging indicates R glute med/min tendons partial tear, as well as degenerative changes/OA. New diagnosis of cancer in past 12 No months? Chief Complaint Pain,Stiff Symptom Type Ache,Sharp Symptoms Aggravated By Standing,Physical Activity, Walking Prior Functional Limitations Standing,Walking Current Functional Limitations Lifting,Housework,Standing, Walking,Balance,Bending/ Stooping Symptom Description Intermittent Level of pain today (0-10) 1 Pain scale - at its best (0-10) 0 Pain scale - at its worst (0-10) 5 Hip/Knee Eval Gait Observation General Gait Pattern Observation Antalgic Gait,Decrease Weight Bear (R),Decrease Stride Lngth (R) Palpation Tenderness right Knee Palpation Overall Comment glute med/min/piriformis mm 2/ 4 Hip Palpation Findings Tenderness MMT bilateral Hip Strength Reason Not Measured WFL Knee Strength Reason Not Measured WFL ROM right Hip ROM Reason Not Measured Within Functional Limits Knee ROM Reason Not Measured Within Functional Limits Special Tests Hip Romulo Test Positive Left,Positive Right Hip Piriformis Test Positive Left,Positive Right Hip 90-90 Straight Leg Raise Test Positive Left,Positive Right Hesham Test Positive Outpatient Therapy Assessment Impairments Problems/Impairmments Palpation Tenderness,Impaired Range of Motion,Impaired Gait Pattern,Impaired Walking, Impaired Standing,Impaired Household Care,Impaired Stair Climbing,Subjective C/O Pain Prognosis Rehab Potential Good Clinical Impression Consistent with Diagnosis Yes Short Term Goals Number of Weeks 2 Decrease Subjective C/O Pain Yes: 3/10 at worst Patient to be Ind w/ HEP Yes Shelter Goals Number of Weeks 4-6 Decreased Palpation Tenderness Yes: 1/4 Increase Strength Yes: 5/5 Increase Ability to Walk Yes: 30 min without difficulty Increase Ability to Stand Yes: Improve Ability For Household Care Yes Improve LEFI Score Yes: mild diability Decrease Subjective C/O Pain Yes: 1/10 at worst Outpatient Therapy Plan of Care Treatment Plan May Include Therapeutic Exercise Including Home Yes Exercise Program Manual Therapy Techniques Yes Neuromuscular Re-education Yes Therapeutic Activities to Return to Yes Previous Functional/Work Level Gait Training Yes ADL/Self Care Education Yes Mechanical Traction Yes Dry Needling Yes Thermal Modalities Yes Electrical Stimulation Yes Ultrasound/Phonophoresis Yes Iontophoresis Yes Orthotics/Bracing/Splinting Yes Massage Yes Eval/Re-Eval Yes Aquatic Therapy Yes Frequency Times per week 2-3 Duration Number of Weeks 4-6 Addendums This patient is a candidate for social No or vocational rehab? Patient/Guardian verbally acknowledges Yes understanding of treatment program and consents to further treatment? Patient/Guardian verbally acknowledges Yes understanding of diagnosis, prognosis and goals for treatment? Eval Complexity PT Charges 55675 - Moderate Complexity Shoulder/Elbow Eval Shoulder Objective Measurements Elbow Objective Measurements PHYSICIAN CERTIFICATION: I certify the specified therapy services for Marybel Shin are required, authorized, and reviewed every 30 days.
== END 2024-01-27 11:05 | disposition home or self-care (01) ==
LOC: PT 11:00
PROVIDERS: Visit Provider Physician Assistant
DX: M25.551 Pain in right hip (principal); S76.011A Strain of muscle, fascia and tendon of right hip, initial encounter
CPT/HCPCS: 97110; 97163

== ENCOUNTER 2024-02-05 13:46 | Outpatient (CLI) | payer MEDICARE, MEDICAID, SELFPAY ==
--- NOTE | 2024-02-05 13:46 | MM_ITS ---
PROCEDURE INFORMATION: Exam: MG Bilateral Screening 3D Mammography Exam date and time: 02/05/2024 1:30 PM Age: 68 years old Clinical indication: Screening exam. TECHNIQUE: Imaging protocol: Bilateral Screening tomosynthesis and 2D mammography including computer-aided detection (CAD) when performed. COMPARISON: MG MM DIG SCREENING MAMM BI W/CAD 02/01/2022 12:58 PM FINDINGS: MAMMOGRAPHY: Breast composition: There are scattered areas of fibroglandular density. Mass: No suspicious masses. Architectural distortion: None. Calcifications: No suspicious calcifications. Asymmetric density: None. Skin thickening: None. Axillary adenopathy: None. IMPRESSION: No mammographic evidence of malignancy. Annual screening is recommended unless otherwise clinically indicated. ASSESSMENT: BI-RADS Category 1: Negative.
== END 2024-02-05 23:59 | disposition home or self-care (01) ==
LOC: RAD 13:46
PROVIDERS: PCP Family Medicine; Visit Provider Physician Assistant
DX: Z12.31 Encounter for screening mammogram for malignant neoplasm of breast (principal)
CPT/HCPCS: 77063; 77067

== ENCOUNTER 2024-03-17 11:00 | Emergency (ER) | payer MEDICARE, MEDICAID, SELFPAY ==
[2024-03-17 11:00] VITALS: BP 136/77; PULSE 75; PULSE 78; RESP 18; TEMP 36.8; O2SAT 97; O2SAT 98; BMI 38.1
--- NOTE | 2024-03-17 11:01 | PC.NURSE ---
Dr. Tran at [facility] for pt eval
--- NOTE | 2024-03-17 11:09 | CT_ITS ---
PROCEDURE INFORMATION: Exam: CT Head Without Contrast Exam date and time: 03/17/2024 11:35 AM Age: 68 years old Clinical indication: Pain; Visual disturbance; Headache; Additional info: L sided migraine, R sided blurry vision TECHNIQUE: Imaging protocol: Computed tomography of the head without contrast. Radiation optimization: All CT scans at this facility use at least one of these dose optimization techniques: automated exposure control; mA and/or kV adjustment per patient size (includes targeted exams where dose is matched to clinical indication); or iterative reconstruction. COMPARISON: CT HEAD/BRAIN WO CON 07/20/2023 12:41 PM FINDINGS: Brain: There is no mass effect, midline shift, acute hemorrhage, extra-axial fluid collection or acute lobar infarct. 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 Cerebral ventricles: No ventriculomegaly. Paranasal sinuses: Visualized sinuses are unremarkable. No fluid levels. Mastoid air cells: Visualized mastoid air cells are well aerated. Bones: Unremarkable. No acute fracture. Soft tissues: Unremarkable. IMPRESSION: No acute intracranial process.
--- NOTE | 2024-03-17 11:12 | PC.NURSE ---
DR BEYER AT BEDSIDE
[2024-03-17 11:21] LABS: Basophils # 0.1 K/mm3 (0-0.2); Eosinophils # 0.2 K/mm3 (0.0-0.4); Eosinophils % 2.2 % (0.1-12.0); Hematocrit 47.3 % (37.0-47.0); Hemoglobin 15.8 g/dL (12.2-16.2); Lymphocytes # 1.8 K/mm3 (0.7-4.5); Lymphocytes % 22.7 % (10-50); Mean Corpuscular HGB Conc 33.4 g/dL (31.8-35.4); Mean Corpuscular Hemoglobin 29.7 pg (27.0-31.2); Mean Corpuscular Volume 88.8 fl (81-99); Mean Platelet Volume 7.4 fl (7.4-10.4); Monocytes # 0.6 K/mm3 (0.1-1.0); Monocytes % 7.5 % (1.7-9.3); Neutrophils # 5.2 K/mm3 (1.8-7.8); Neutrophils % 66.6 % (37.0-80.0); Platelet Count 273 K/mm3 (142-424); Red Blood Count 5.32 M/mm3 (4.20-5.40); Red Cell Distribution Width 13.6 % (11.5-17.5); White Blood Count 7.7 K/mm3 (4.8-10.8)
--- NOTE | 2024-03-17 11:25 | HMH.EDGENADL ---
Discharge Plan Disposition Patient Disposition: Home, Self-Care Chief Complaint: Headache Prescriptions Prescriptions: No Action Repatha SureClick 140 mg/mL pen injector 140 mg SQ Q2W Qty: 2 2RF (DME) Dexcom G7 Sensor Device See Rx Instructions .Route Qty: 14 3RF Rx Instructions: As directed albuterol sulfate [Proventil HFA] 90 mcg/actuation HFA aerosol inhaler 2 puff inhalation Q6H Qty: 8.5 5RF Rx Instructions: administer with spacer memantine 7 mg capsule,sprinkle,ER 24hr See Rx Instructions .ROUTE .COMPLEX Qty: 90 3RF Dose Instruction: TAKE 1 CAPSULE BY MOUTH ONCE DAILY Rx Instructions: TAKE 1 CAPSULE BY MOUTH ONCE DAILY diclofenac sodium [Arthritis Pain (diclofenac)] 1 % gel 2 g topical QID Qty: 100 2RF Rx Instructions: apply to single elbow, wrist or hand; for hand includes palm/fingers/back of hand aripiprazole [Abilify] 5 mg tablet 5 mg PO HS Qty: 30 2RF desvenlafaxine succinate [Pristiq] 100 mg tablet extended release 24 hr 100 mg PO DAILY Qty: 30 2RF sertraline 100 mg tablet PO duloxetine 30 mg capsule,delayed release(DR/EC) PO dexlansoprazole [Dexilant] 60 mg capsule,biphase delayed releas 60 mg PO DAILY Qty: 90 1RF fluticasone propionate 50 mcg/actuation spray,suspension See Rx Instructions .ROUTE .COMPLEX Qty: 48 0RF Dose Instruction: USE 2 SPRAYS IN BOTH NOSTRILS DAILY FOR BREATHING PROBLEMS Rx Instructions: USE 2 SPRAYS IN BOTH NOSTRILS DAILY FOR BREATHING PROBLEMS insulin lispro 100 unit/mL insulin pen 1 sliding scale dose SQ QAC Patient Comments: 125-150 6 units 150-200 8 units over 200 10 units (DME) pen needle, diabetic [BD Ultra-Fine Mini Pen Needle] 31 gauge x 3/16 needle See Rx Instructions .ROUTE .COMPLEX Qty: 100 0RF Dose Instruction: USE THREE TIMES DAILY DIRECTED FOR DIABETES Rx Instructions: USE THREE TIMES DAILY DIRECTED FOR DIABETES albuterol sulfate 1.25 mg/3 mL solution for nebulization 1.25 mg INHALATION QID PRN (Reason: shortness of breath or wheezing) Qty: 90 0RF ergocalciferol (vitamin D2) 1,250 mcg (50,000 unit) capsule 1,250 mcg PO WEEKLY Qty: 14 3RF cholecalciferol (vitamin D3) 50 mcg (2,000 unit) capsule 50 mcg PO DAILY Qty: 90 3RF flecainide 100 mg tablet See Rx Instructions .ROUTE .COMPLEX Qty: 200 2RF Dose Instruction: TAKE 1 TABLET BY MOUTH EVERY 12 HOURS FOR AFIB Rx Instructions: TAKE 1 TABLET BY MOUTH EVERY 12 HOURS FOR AFIB famotidine 20 mg tablet See Rx Instructions .ROUTE .COMPLEX Qty: 100 2RF Dose Instruction: TAKE 1 TABLET BY MOUTH AT BEDTIME FOR STOMACH Rx Instructions: TAKE 1 TABLET BY MOUTH AT BEDTIME FOR STOMACH Xarelto 20 mg tablet See Rx Instructions .ROUTE .COMPLEX Qty: 100 2RF Dose Instruction: TAKE 1 TABLET BY MOUTH DAILY FOR BLOOD THINNER Rx Instructions: TAKE 1 TABLET BY MOUTH DAILY FOR BLOOD THINNER metoprolol succinate 25 mg tablet extended release 24 hr See Rx Instructions .ROUTE .COMPLEX Qty: 100 2RF Dose Instruction: TAKE 1 TABLET BY MOUTH ONCE DAILY FOR BLOOD PRESSURE Rx Instructions: TAKE 1 TABLET BY MOUTH ONCE DAILY FOR BLOOD PRESSURE furosemide 40 mg tablet See Rx Instructions .ROUTE .COMPLEX Qty: 100 2RF Dose Instruction: TAKE 1 TABLET BY MOUTH DAILY DIRECTED FOR FLUID Rx Instructions: TAKE 1 TABLET BY MOUTH DAILY DIRECTED FOR FLUID montelukast 10 mg tablet See Rx Instructions .ROUTE .COMPLEX Qty: 90 3RF Dose Instruction: TAKE 1 TABLET BY MOUTH AT BEDTIME NIGHTLY Rx Instructions: TAKE 1 TABLET BY MOUTH AT BEDTIME NIGHTLY losartan 50 mg tablet See Rx Instructions .ROUTE .COMPLEX Qty: 100 2RF Dose Instruction: TAKE 1 TABLET BY MOUTH DAILY FOR HYPERTENSION Rx Instructions: TAKE 1 TABLET BY MOUTH DAILY FOR HYPERTENSION trazodone 50 mg tablet See Rx Instructions .ROUTE .COMPLEX Qty: 90 3RF Dose Instruction: TAKE 1 TABLET BY MOUTH EVERY DAY AT BEDTIME Rx Instructions: TAKE 1 TABLET BY MOUTH EVERY DAY AT BEDTIME insulin degludec 100 unit/mL (3 mL) insulin pen See Rx Instructions .ROUTE .COMPLEX Qty: 15 3RF Dose Instruction: INJECT 75 UNITS SUBCUTANEOUSLY AT BEDTIME Rx Instructions: INJECT 75 UNITS SUBCUTANEOUSLY AT BEDTIME dapagliflozin propanediol [Farxiga] 10 mg tablet See Rx Instructions .ROUTE .COMPLEX Qty: 90 0RF Dose Instruction: Take 1 tablet by mouth once daily Rx Instructions: Take 1 tablet by mouth once daily Mounjaro 10 mg/0.5 mL pen injector 10 mg SQ QWEEK Qty: 2 2RF dexlansoprazole [Dexilant] 60 mg capsule,biphase delayed releas 60 mg PO DAILY Qty: 90 3RF clopidogrel 75 mg tablet See Rx Instructions .ROUTE .COMPLEX Qty: 100 2RF Dose Instruction: TAKE 1 TABLET BY MOUTH ONCE DAILY FOR BLOOD THINNER Rx Instructions: TAKE 1 TABLET BY MOUTH ONCE DAILY FOR BLOOD THINNER Referrals Follow up/Referrals: Provider,Referral, MD [Referring] - See instructions Activity Restrictions/Add. Instructions Additional Instructions/Restrictions: Call your family doctor to establish care for this visit to the emergency department and schedule follow-up within 48 hours to ensure improvement. If you have any worsening of your condition or any other concerning signs or symptoms, return to the emergency department or your primary care doctor for further evaluation. Clinical Impressions Clinical Impression: Migraine Stand Alone Forms Stand Alone Forms: Work/School Release Print Language Print Language: [place]i Discharge ED Provider: Bob Tran General Adult HPI General Chief complaint: Headache Stated complaint: Headache Time Seen by Provider: 03/17/24 11:09 Mode of Arrival: EMS Source of Information: Patient and EMS Limitations: No Limitations Description of Symptoms (Recalled from ER Triage Doc. by RN): PT BROUGHT IN VIA EMS FOR MIGRAINE THAT STARTED YESTERDAY. PAIN CONTINUED TODAY. PT REPORTS VISUAL DISTURBANCE AND PAIN TO LEFT SIDE OF HEAD History of Present Illness HPI narrative: Please note that above description of symptoms, in this electronic medical record under categorization of recalled from ER triage doctor by RN are reflective of an initial nursing assessment, however, is not reflective of my full history and physical exam that was personally taken and clarified. Consequentially, this preceding description of symptoms, which may include the patient's categorized chief complaint in the EMR, do not reflect my personal clinical impression, and the ultimate description of history of present illness and patient stated complaints should be deferred to this section of the note. Unless stated otherwise or congruent with this section of the note, additional signs, symptoms, or incongruence should be interpreted as inaccurate with my clinical impression. Related Data Home Medications ?Medication ?Instructions ?Recorded ?Confirmed insulin lispro 100 unit/mL 1 sliding scale dose SQ QAC 03/19/23 02/13/24 subcutaneous pen Diabetes duloxetine 30 mg capsule,delayed mg PO 01/06/24 02/13/24 release sertraline 100 mg tablet mg PO 01/06/24 02/13/24 Previous Rx's ?Medication ?Instructions ?Recorded fluticasone propionate 50 See Rx Instructions .Route 03/18/23 mcg/actuation nasal .COMPLEX #48 grams spray,suspension pen needle, diabetic 31 gauge x #100 ea 03/25/23 3/16 (BD Ultra-Fine Mini Pen Needle) albuterol sulfate 1.25 mg/3 mL 1.25 mg (3 mL) inhalation QID PRN 06/06/23 solution for nebulization shortness of breath or wheezing #90 mL diclofenac sodium 1 % topical gel 2 g topical QID #100 grams 07/01/23 (Arthritis Pain (diclofenac)) cholecalciferol (vitamin D3) 50 50 mcg PO DAILY #90 caps 07/12/23 mcg (2,000 unit) capsule ergocalciferol (vitamin D2) 1,250 1,250 mcg PO WEEKLY #14 caps 07/12/23 mcg (50,000 unit) capsule evolocumab 140 mg/mL subcutaneous 140 mg SQ Q2W #2 mL 07/17/23 pen injector (Anurag Munson) flecainide 100 mg tablet See Rx Instructions .Route 09/02/23 .COMPLEX #200 tabs famotidine 20 mg tablet See Rx Instructions .Route 09/30/23 .COMPLEX #100 tabs metoprolol succinate 25 mg See Rx Instructions .Route 09/30/23 tablet,extended release 24 hr .COMPLEX #100 tabs rivaroxaban 20 mg tablet (Xarelto) See Rx Instructions .Route 09/30/23 .COMPLEX #100 tabs furosemide 40 mg tablet See Rx Instructions .Route 10/07/23 .COMPLEX #100 tabs albuterol sulfate 90 mcg/actuation 2 puff inhalation Q6H #8.5 grams 10/23/23 aerosol inhaler (Proventil HFA) blood-glucose sensor ([employer] G7 #14 ea 10/23/23 Sensor device) memantine 7 mg capsule See Rx Instructions .Route 10/23/23 sprinkle,extended release 24hr .COMPLEX #90 caps aripiprazole 5 mg tablet (Abilify) 5 mg PO HS #30 tabs 10/30/23 montelukast 10 mg tablet See Rx Instructions .Route 11/26/23 .COMPLEX #90 tabs desvenlafaxine succinate 100 mg 100 mg PO DAILY #30 tabs 12/02/23 tablet,extended release 24 hr (Pristiq) losartan 50 mg tablet See Rx Instructions .Route 12/05/23 .COMPLEX #100 tabs trazodone 50 mg tablet See Rx Instructions .Route 12/06/23 .COMPLEX #90 tabs insulin degludec 100 unit/mL (3 See Rx Instructions .Route 12/16/23 mL) subcutaneous pen .COMPLEX #15 mL Farxiga 10 mg tablet See Rx Instructions .Route 12/17/23 (dapagliflozin propanediol) .COMPLEX #90 tabs tirzepatide 10 mg/0.5 mL 10 mg (0.5 mL) SQ QWEEK #2 mL 12/26/23 subcutaneous pen injector (Mounjaro) Dexilant 60 mg capsule, delayed 60 mg PO DAILY #90 caps 01/06/24 release (dexlansoprazole) dexlansoprazole 60 mg 60 mg PO DAILY #90 caps 01/27/24 capsule,biphase delayed release (Dexilant) clopidogrel 75 mg tablet See Rx Instructions .Route 03/04/24 .COMPLEX #100 tabs Allergies Allergy/AdvReac Type Severity Reaction Status Date / Time canagliflozin [From Invokana] Allergy Severe blisters Verified 02/13/24 09:27 metformin Allergy Mild Diarrhea, Verified 02/13/24 09:27 nausea, dizziness sitagliptin [From Januvia] Allergy Mild Hives Verified 02/13/24 09:27 linaclotide [From Linzess] Allergy Rash Verified 02/13/24 09:27 metronidazole [From Metrogel] Allergy Rash Verified 02/13/24 09:27 nystatin Allergy Dizziness Verified 02/13/24 09:27 rosuvastatin [From Crestor] Allergy Unknown Verified 02/13/24 09:27 allergy reaction semaglutide [From Ozempic] AdvReac Severe Abdominal Verified 02/13/24 09:27 Pain atorvastatin [From Lipitor] AdvReac Intermediate body aches Verified 02/13/24 09:27 andmental confusion imdur AdvReac Mild headache Uncoded 02/13/24 09:27 [facility] Disclaimer: The information contained in this section may have been updated after the patient was seen, as this information can be updated by other users. Medical History Obesity, Class III, BMI 40-49.9 (morbid obesity) Labile essential hypertension TOMAS (obstructive sleep apnea) Ear itching Vomiting Bilateral impacted cerumen Allergic rhinitis Breast cyst left removed Ganglion cyst left wrist Dermoid cyst of head removed Diabetes mellitus, type 2 Neck pain Moderate mitral regurgitation Dizziness Mood disorder Obesity HTN (hypertension) COPD (chronic obstructive pulmonary disease) GERD (gastroesophageal reflux disease) Neuropathy Anxiety Restless leg syndrome Most likely secondary RLS in a patient with history of diabetes mellitus and peripheral neuropathy. She has signs and symptoms suggestive of augmentation, (worsening of RLS despite of increasing doses dopamine agonist and most recently carbidopa/levodopa). Surgical History Status post trigger finger release History of cholecystectomy History of hysterectomy History of colonoscopy Family History Other Family history of Alzheimer's disease Family history of myocardial infarction Social History Smoking Status: Former smoker tobacco type: cigarettes packs per day: 1 second hand exposure: Yes alcohol intake: never counseling provided: provider counseling substance use type: denies use current occupational status: other Travel in the last 8 weeks: None household members: children housing: house lives independently: Yes marital status: legally education level: high school current occupational exposures/hazards: No caffeine: Yes special lex needs: No agree to transfusion: No do you feel safe at home: Yes victim of physical abuse: No victim of emotional abuse: No victim of sexual abuse: No would you like helpful sources: No Other Medical History Have you received the Flu Vaccine for this season: No Have you received the Pneumonia Vaccine: Yes ROS Obtained: Yes All systems reviewed & no additional complaints except as documented Physical Exam General General appearance: alert Head Head exam: atraumatic and normocephalic Eye Eye exam: Present normal appearance, PERRL and EOMI Neck Neck exam: Present normal inspection, full ROM and trachea midline Respiratory Respiratory exam: Absent respiratory distress, wheezes, stridor, accessory muscle use or prolonged expiratory phase Cardiovascular Cardiovascular exam: Present other (Pulses equal symmetric in upper and lower extremities) Abdominal Exam Abdominal exam: Present soft; Absent distention, tenderness or pulsatile mass Extremities Exam Extremities exam: Absent edema Neurological Exam Neurological exam: Present alert, oriented X3 and CN II-XII intact; Absent motor sensory deficit Skin Skin exam: Present warm and dry; Absent diaphoresis or erythema Medical Decision Making Medical Records Medical records reviewed: Yes I reviewed the patient's medical records. Screening: Per USPSTF and CDC recommendations, given the prevalence of disease in our region, it is our hospital?s policy to screen for HIV and viral Hepatitis for all patients aged 18 and over and those with ongoing risk factors. Marco A Inquiry Pt receiving controlled substance: No Marco A was queried for this patient: No Vital Signs: 03/17/24 11:00 03/17/24 11:00 03/17/24 12:23 Temperature 98.3 F Temperature Source Oral Pulse Rate 75 72 Pulse Rate [Radial] 78 Respiratory Rate 18 Blood Pressure 136/77 125/68 Blood Pressure [Right Arm] 136/77 Blood Pressure Mean 81 Blood Pressure Mean [Right Arm] 96 Blood Pressure Position [Right Arm] Sitting 02 Sat by Pulse Oximetry 98 97 94 L Oxygen Delivery Method Room Air Room Air Room Air 03/17/24 12:30 Temperature Temperature Source Pulse Rate 64 Pulse Rate [Radial] Respiratory Rate Blood Pressure 130/69 Blood Pressure [Right Arm] Blood Pressure Mean 89 Blood Pressure Mean [Right Arm] Blood Pressure Position [Right Arm] 02 Sat by Pulse Oximetry 95 Oxygen Delivery Method Room Air Lab Data Lab Results 03/17/24 11:13: WBC 7.7, RBC 5.32, Hgb 15.8, Hct 47.3 H, MCV 88.8, MCH 29.7, MCHC 33.4, RDW 13.6, Plt Count 273, MPV 7.4, Neut % (Auto) 66.6, Lymph % (Auto) 22.7, [place] % (Auto) 7.5, Eos % (Auto) 2.2, Baso % (Auto) 1.0, Neut # (Auto) 5.2, Lymph # (Auto) 1.8, [place] # (Auto) 0.6, Eos # (Auto) 0.2, Baso # (Auto) 0.1, PT 13.4 H, INR 1.22 H, APTT 32.5 H, Sodium 138, Potassium 5.1, Chloride 101, Carbon Dioxide 29, Anion Gap 13.1, BUN 18 H, Creatinine 0.80, Estimated Creat Clear 86, Estimated GFR 71, Est GFR ( Amer) 86, Glucose 131 H, Calcium 9.0, Total Bilirubin 0.9, AST 38 H, ALT 20, Alkaline Phosphatase 93, Total Protein 7.9, Albumin 4.1, Globulin 3.8 H, Albumin/Globulin Ratio 1.1 03/17/24 11:13 03/17/24 11:13 Orders (Tests/Meds): ED MEDICATIONS Discontinued Medications Generic Name Dose Route Start Last Admin Trade Name Aure PRN Reason Stop Dose Admin Acetaminophen 1,000 mg 03/17/24 11:09 03/17/24 11:31 Acetaminophen 500mg Tab PO 03/17/24 11:10 1,000 mg ONCE ONE Administration Dexamethasone Sodium Phosphate 10 mg 03/17/24 11:09 03/17/24 11:30 Dexamethasone 4mg/Ml 1ml Vial IV 03/17/24 11:10 10 mg ONCE ONE Administration Diphenhydramine HCl 25 mg 03/17/24 11:09 03/17/24 11:31 Diphenhydramine 50mg/Ml Vial IV 03/17/24 11:10 25 mg ONCE ONE Administration Magnesium Sulfate 2 gm in 50 mls @ 50 mls/hr 03/17/24 11:09 03/17/24 11:29 Magnesium Sulfate 2gm/50ml Premix IV 03/17/24 12:08 50 mls/hr ONCE ONE Administration Ketorolac Tromethamine 15 mg 03/17/24 11:09 03/17/24 11:31 Ketorolac 30mg/Ml Vial IV 03/17/24 11:10 15 mg ONCE ONE Administration Prochlorperazine Edisylate 10 mg 03/17/24 11:09 03/17/24 11:30 Prochlorperazine 10mg/2ml Vial IV 03/17/24 11:10 10 mg ONCE ONE Administration ORDERS Category Date Time Status CT head/brain wo con Stat Cat Scan 03/17/24 11:09 Completed CBC w/Auto Diff [Complete Blood Count Auto Diff] Stat Lab 03/17/24 11:13 Completed CMP [Comprehensive Metabolic Panel] Stat Lab 03/17/24 11:13 Completed HIV (1&2) Antibody Rapid Stat Lab 03/17/24 11:13 Received Hep C Ab with Reflex to RNA Stat Lab 10/29/24 11:13 Received PT INR [Prothrombin Time INR] Stat Lab 03/17/24 11:13 Completed PTT [Activated Partial Thrombo Time] Stat Lab 03/17/24 11:13 Completed Medical Decision Narrative: 68-year-old female history of hypertension, hyperlipidemia, CVA versus TIA, COPD, migraine disorder with intermittent migraines presenting with migraine headache. Patient states that she started having squiggly lines, and intermittent blurry vision in her right eye last night, 03/16. Today, vision changes have largely resolved other than slight blurry vision in the right eye, that she is having moderate to severe left sided headache. No other associated neurologic deficits. No chest pain, shortness of breath, trauma, falls, difficulty speaking, or any other relevant history. Mostly worried because she had the symptoms in the past, was diagnosed with mini strokes at the time. History was obtained via conversation with patient. On arrival, patient hemodynamically stable, alert, oriented x4, appropriate, GCS 15, moving all extremities spontaneously, pupils equal and reactive to light. Full physical exam performed and significant for neurologically intact including cranial nerve, cerebellar, motor and sensory exams. Ambulatory without issue. Visual jaime intact. Pupils equal and reactive with consensual responses. Cardiopulmonary exam normal. Differential includes headache, migraine, intracranial mass, among others. Patient placed on continuous cardiac monitoring and continuous pulse ox with initial blood pressure 136/77, heart rate 78, saturation 97 percent on room air. Patient was placed in observation beginning at 11:15 AM in order to give him, reassess and determine need for admission versus home-going. The patient was provided migraine cocktail while awaiting results. Independent interpretation of results demonstrated nonactionable hematologic labs. CT head independently interpreted and without acute intracranial abnormality. On reevaluation, patient up, walking around, states she feels much better and is asymptomatic. At this time, I feel patient is appropriate for discharge. Total observation time 1/2 hours. Because patient at baseline without signs or symptoms of clinical decompensation, deemed appropriate for discharge. Results were relayed to patient who voiced understanding and were agreeable to outpatient management and follow up. I discussed my clinical impression with patient and answered all questions. At this time, the evidence for any other entities in the differential is insufficient to warrant any further testing or ED observation. This was explained as well. Advisory was given that persistent or worsening symptoms require further evaluation. I confirmed the understanding of this discussion. At Home [facility] Agent disclaimer Much of this encounter note is an electronic humanities department chair spoken language to printed text. Electronic humanities department chair of the spoken language may permit errors. Although I have reviewed the note, some errors may still exist. Critical Care Critical Care Time Critical Care Time: No
[2024-03-17 11:28] LABS: Albumin Level 4.1 g/dl (3.5-5.0); Chloride 101 mmol/L (98-107); Potassium 5.1 mmoL/L (3.5-5.1); Sodium 138 mmol/L (136-145)
[2024-03-17] MEDS: MAGNESIUM SULFATE IN WATER 2 GM/50 ML PIGGYBACK IV (11:29)
[2024-03-17] MEDS: PROCHLORPERAZINE 10MG/2ML VIAL 10 MG IV (11:30)
[2024-03-17] MEDS: DEXAMETHASONE 4MG/ML 1ML VIAL 10 MG IV (11:30)
[2024-03-17 11:31] LABS: Alanine Aminotransferase 20 U/L (12-78); Albumin/Globulin Ratio 1.1 (1.1-1.8); Alkaline Phosphatase 93 U/L (38-126); Anion Gap 13.1 mEq/L (5-15); Aspartate Amino Transferase 38 U/L (14-36); Bilirubin,Total 0.9 mg/dl (0.2-1.3); Blood Urea Nitrogen 18 mg/dl (7-17); Carbon Dioxide 29 mmol/L (22.0-30.0); Creatinine Clearance Estimated 86 mL/min (50-200); Estimated Glomerular Filt Rate 71 ml/min (>60); GFR (African American) 86 ML/MIN (>60); Globulin 3.8 g/dL (1.3-3.2); Glucose 131 mg/dl (74-100); Total Protein,Serum 7.9 g/dl (6.3-8.2)
[2024-03-17] MEDS: KETOROLAC 30MG/ML VIAL 15 MG IV (11:31)
[2024-03-17] MEDS: diphenhydrAMINE 50MG/ML VIAL 25 MG IV (11:31)
[2024-03-17] MEDS: ACETAMINOPHEN 500MG TAB 1000 MG PO (11:31)
[2024-03-17 11:33] LABS: Activated Partial Thrombo Time 32.5 seconds (22.8-30.6); INR 1.22 (0.9-1.1); Prothrombin Time 13.4 seconds (10.1-12.5)
--- NOTE | 2024-03-17 11:33 | PC.NURSE ---
PT TO CT
--- NOTE | 2024-03-17 11:40 | PC.NURSE ---
PT RETURNED FROM CT. OFFERED BLANKET. PT WITHOUT NEEDS AT THIS TIME. CALL LIGHT WITHIN REAC
[2024-03-17 12:23] VITALS: BP 125/68; PULSE 72; O2SAT 94
[2024-03-17 12:30] VITALS: BP 130/69; PULSE 64; O2SAT 95
--- NOTE | 2024-03-17 13:09 | PC.NURSE ---
spoke with Yamilex in [place] about a pt ride home
--- NOTE | 2024-03-17 13:11 | PC.NURSE ---
TRN took a call from onofre chu, she is attempting to find a ride for the pt.
[2024-03-17 13:30] VITALS: BP 130/69; PULSE 64; RESP 13; TEMP 36.8; O2SAT 95
[2024-03-17 13:42] LABS: HIV (1&2) Antibody Rapid NONREACTIVE (NONREACTIVE)
[2024-03-18 12:24] LABS: HCV Ab Non Reactive (Non Reactive)
== END 2024-03-17 13:31 | disposition home or self-care (01) ==
PROVIDERS: Emergency Provider Emergency Medicine; PCP Family Medicine
DX: H53.9 Unspecified visual disturbance (principal); G43.909 Migraine, unspecified, not intractable, without status migrainosus
CPT/HCPCS: 70450; 80053; 85025; 85610; 85730; 86803; 87389; 96365; 96374; 96375; 99283; J0780; J1100; J1200; J1885; J3475

== ENCOUNTER 2024-03-25 10:10 | Outpatient (CLI) | payer MEDICARE, MEDICAID, SELFPAY ==
[2024-03-25 18:34] LABS: Basophils # 0.1 K/mm3 (0-0.2); Basophils % 1.7 % (0.1-2.0); Eosinophils # 0.1 K/mm3 (0.0-0.4); Eosinophils % 1.9 % (0.1-12.0); Hematocrit 48.5 % (37.0-47.0); Hemoglobin 15.5 g/dL (12.2-16.2); Lymphocytes # 1.3 K/mm3 (0.7-4.5); Lymphocytes % 18.1 % (10-50); Mean Corpuscular Hemoglobin 30.2 pg (27.0-31.2); Mean Corpuscular Volume 94.4 fl (81-99); Mean Platelet Volume 8.6 fl (7.4-10.4); Monocytes # 0.4 K/mm3 (0.1-1.0); Monocytes % 5.9 % (1.7-9.3); Neutrophils # 5.2 K/mm3 (1.8-7.8); Neutrophils % 72.4 % (37.0-80.0); Platelet Count 282 K/mm3 (142-424); Red Blood Count 5.13 M/mm3 (4.20-5.40); Red Cell Distribution Width 14.2 % (11.5-17.5); White Blood Count 7.2 K/mm3 (4.8-10.8)
[2024-03-25 20:06] LABS: Chloride 106 mmol/L (98-107)
[2024-03-25 20:07] LABS: Albumin Level 3.7 g/dl (3.5-5.0); Potassium 4.2 mmoL/L (3.5-5.1); Sodium 139 mmol/L (136-145)
[2024-03-25 20:09] LABS: Alanine Aminotransferase 17 U/L (12-78); Albumin/Globulin Ratio 1.3 (1.1-1.8); Alkaline Phosphatase 99 U/L (38-126); Anion Gap 15.2 mEq/L (5-15); Aspartate Amino Transferase 19 U/L (14-36); Bilirubin,Total 0.5 mg/dl (0.2-1.3); Blood Urea Nitrogen 20 mg/dl (7-17); Carbon Dioxide 22 mmol/L (22.0-30.0); Estimated Glomerular Filt Rate 71 ml/min (>60); GFR (African American) 86 ML/MIN (>60); Globulin 2.8 g/dL (1.3-3.2); Total Protein,Serum 6.5 g/dl (6.3-8.2)
[2024-03-25 20:10] LABS: Calcium 9.4 mg/dl (8.4-10.2); Glucose 189 mg/dl (74-100)
== END 2024-03-25 23:59 | disposition home or self-care (01) ==
LOC: LAB.DROPOF 03-26 10:05
PROVIDERS: PCP Family Medicine; Visit Provider Family Medicine
DX: Z00.00 Encounter for general adult medical examination without abnormal findings (principal); E11.9 Type 2 diabetes mellitus without complications
CPT/HCPCS: 80053; 85025

== ENCOUNTER 2024-08-06 13:16 | Observation (INO) | payer MEDICARE, SELFPAY ==
[2024-08-06] VITALS (14 sets, daily range): BP systolic 109–168; BP diastolic 42–88; PULSE 73–85; RESP 12–22; TEMP 36.8; O2SAT 92–98; BMI 33.7; BMI 34.5
--- NOTE | 2024-08-06 13:19 | ED_ITS ---
Discharge Plan Disposition Patient Disposition: Admitted Condition: Serious Clinical Impressions Clinical Impression: Occlusion of left vertebral artery, Paresthesia Discharge ED Provider: Sid Juan General Adult HPI <JAMES Sommer - Last Filed: 08/06/24 19:09> General Chief complaint: Neuro Symptoms/Deficit Stated complaint: lips and tongue quivering, brain fog Time Seen by Provider: 08/06/24 13:19 History of Present Illness HPI narrative: Patient presents for evaluation of lip and tongue quivering along with brain fog. Patient has a past medical history of hypertension, restless leg syndrome, obstructive sleep apnea, degenerative disc disease of the lumbar spine, COPD not on chronic oxygen, insulin-dependent type 2 diabetes mellitus, cardiovascular disease, history of previous right occipital stroke with loss of central right vision, peripheral neuropathy, anxiety. Patient relates that last evening she started having left-sided lip quivering that then later began involving the left side of her tongue. That persisted all night. When she awoke today she noted an altered sensation on the left arm and leg but no functional motor loss that she just reported that her skin felt different. Patient also reports that she is having brain fog along with nightmares. Patient relates that her most recent medication changes that she was taken off of Lexapro and her dose of Cymbalta was increased from 30 to 60 mg along with the addition of Abilify 5 mg at bedtime. Patient called her psychiatrist and they advised her to discontinue her Abilify and decrease the dose of her Cymbalta. Given patient's previous stroke history she was concerned that she was having strokelike symptoms and came to the ER for evaluation. She denies chest pain shortness of breath fever chills hemoptysis hematochezia melena nausea vomiting or diarrhea. Related Data Home Medications ?Medication ?Instructions ?Recorded ?Confirmed insulin lispro 100 unit/mL 1 sliding scale dose SQ QAC 03/19/23 08/06/24 subcutaneous pen Diabetes Previous Rx's ?Medication ?Instructions ?Recorded pen needle, diabetic 31 gauge x #100 ea 03/25/2308/02 (BD Ultra-Fine Mini Pen Needle) furosemide 40 mg tablet See Rx Instructions .Route 10/07/23 .COMPLEX #100 tabs blood-glucose sensor (Dexcom G7 #14 ea 10/23/23 Sensor device) memantine 7 mg capsule See Rx Instructions .Route 10/23/23 sprinkle,extended release 24hr .COMPLEX #90 caps losartan 50 mg tablet See Rx Instructions .Route 12/05/23 .COMPLEX #100 tabs Dexilant 60 mg capsule, delayed 60 mg PO DAILY #90 caps 01/06/24 release (dexlansoprazole) clopidogrel 75 mg tablet See Rx Instructions .Route 03/04/24 .COMPLEX #100 tabs insulin degludec 100 unit/mL (3 See Rx Instructions .Route 05/18/24 mL) subcutaneous pen .COMPLEX #15 mL flecainide 100 mg tablet See Rx Instructions .Route 05/22/24 .COMPLEX #200 tabs tirzepatide 10 mg/0.5 mL See Rx Instructions .Route 06/08/24 subcutaneous pen injector .COMPLEX #4 mL (Mounjaro) famotidine 20 mg tablet See Rx Instructions .Route 07/31/24 .COMPLEX #100 tabs metoprolol succinate 25 mg See Rx Instructions .Route 07/31/24 tablet,extended release 24 hr .COMPLEX #100 tabs rivaroxaban 20 mg tablet (Xarelto) See Rx Instructions .Route 07/31/24 .COMPLEX #100 tabs cholecalciferol (vitamin D3) 50 50 mcg PO DAILY #90 caps 08/03/24 mcg (2,000 unit) capsule ergocalciferol (vitamin D2) 1,250 1,250 mcg PO WEEKLY #14 caps 08/03/24 mcg (50,000 unit) capsule Allergies Allergy/AdvReac Type Severity Reaction Status Date / Time canagliflozin (From Invokana) Allergy Severe blisters Verified 06/26/24 09:52 metformin Allergy Mild Diarrhea, Verified 06/26/24 09:52 nausea, dizziness sitagliptin (From Januvia) Allergy Mild Hives Verified 06/26/24 09:52 linaclotide (From Linzess) Allergy Rash Verified 06/26/24 09:52 metronidazole (From Metrogel) Allergy Rash Verified 06/26/24 09:52 nystatin Allergy Dizziness Verified 06/26/24 09:52 rosuvastatin (From Crestor) Allergy Unknown Verified 06/26/24 09:52 allergy reaction semaglutide (From Ozempic) AdvReac Severe Abdominal Verified 06/26/24 09:52 Pain atorvastatin (From Lipitor) AdvReac Intermediate body aches Verified 06/26/24 09:52 andmental confusion imdur AdvReac Mild headache Uncoded 02/13/24 09:27 [facility] <JAMES Sommer - Last Filed: 08/06/24 19:09> [facility] Disclaimer: The information contained in this section may have been updated after the patient was seen, as this information can be updated by other users. Medical History Chest pain Body mass index (BMI) of 40.1 to 44.9 in adult Family history of [place]'s disease Ganglion cyst of left foot Typical angina Diabetic gastroparesis Vomiting Bilateral impacted cerumen Pain, gastric Gastritis Cholelithiasis Gallstones Gastroparesis Dyspnea Chest pain Onychoincurvatum Onychodystrophy Trigger finger of right hand Tendinitis of right peroneus brevis tendon Foot pain, right Insulin dependent diabetes mellitus with complications Plantar fasciitis, left Foot pain, left Onychogryposis of toenail Asymptomatic hypertension Dizziness Chest pain Epigastric abdominal pain Dehydration Abnormal cardiovascular stress test Low blood pressure reading Atypical chest pain Myalgia due to statin Fracture of fifth metatarsal bone of right foot with delayed healing Cardiac arrhythmia Sinus bradycardia Back pain Obesity, Class III, BMI 40-49.9 (morbid obesity) Labile essential hypertension TOMAS (obstructive sleep apnea) Ear itching Allergic rhinitis Breast cyst Ganglion cyst Dermoid cyst of head Diabetes mellitus, type 2 Neck pain Moderate mitral regurgitation Mood disorder Obesity HTN (hypertension) COPD (chronic obstructive pulmonary disease) GERD (gastroesophageal reflux disease) Neuropathy Anxiety Restless leg syndrome Surgical History S/P coronary artery stent placement Status post trigger finger release History of cholecystectomy History of hysterectomy History of colonoscopy Family History Other Family history of Alzheimer's disease Family history of myocardial infarction Social History (Updated 08/06/24 @ 20:09 by Sally Worrell RN) Smoking Status: Former smoker tobacco type: cigarettes packs per day: 1 second hand exposure: Yes alcohol intake: never counseling provided: provider counseling substance use type: denies use current occupational status: other Travel in the last 8 weeks: None household members: children housing: house lives independently: Yes marital status: legally education level: high school current occupational exposures/hazards: No caffeine: Yes special lex needs: No agree to transfusion: No do you feel safe at home: Yes victim of physical abuse: No victim of emotional abuse: No victim of sexual abuse: No would you like helpful sources: No Have you lived/traveled outside [place] in past 30 days?: No Contact w/someone who lives/traveled outside US past 30 days?: No Exposure to someone with infectious disease in past 14 days?: No Do you have a fever (greater than 100.4 F or 38 C)?: No Have you tested positive for COVID-19: No Exposed to someone with COVID-19 in past 14 days?: No Do you have a sore throat?: No Do you have a cough?: No Do you have any weakness?: No Are you experiencing any nausea/vomitting?: No Do you have any diarrhea?: No Are you experiencing any unusual bleeding?: No Do you have any muscle aches/pain?: No Do you have any abdominal pain?: No Are you experiencing loss of taste or smell?: No Other Medical History Have you received the Flu Vaccine for this season: No Have you received the Pneumonia Vaccine: Yes <JAMES Sommer - Last Filed: 08/06/24 19:09> ROS Obtained: Yes Systems reviewed as appropriate & no additional complaints except as documented Physical Exam <JAMES Sommer - Last Filed: 08/06/24 19:09> General General appearance: alert and in no apparent distress Respiratory Respiratory exam: Present normal lung sounds bilaterally Cardiovascular Cardiovascular exam: Present regular rate Neurological Exam Neurological exam: Present alert and oriented X3 Medical Decision Making <JAMES Sommer - Last Filed: 08/06/24 19:09> Medical Records Medical records reviewed: Yes I reviewed the patient's medical records. Screening: Per USPSTF and CDC recommendations, given the prevalence of disease in our region, it is our hospital?s policy to screen for HIV and viral Hepatitis for all patients aged 18 and over and those with ongoing risk factors. Vital Signs: 08/06/24 13:20 08/06/24 15:00 08/06/24 15:30 Temperature 98.2 F Temperature Source Oral Pulse Rate 82 82 Pulse Rate [Right] 85 Respiratory Rate 20 12 14 Blood Pressure 132/77 132/64 Blood Pressure [Right Arm] 168/88 H Blood Pressure Mean 95 Blood Pressure Mean [Right Arm] 114 Blood Pressure Source [Right Arm] Automatic Cuff 02 Sat by Pulse Oximetry 98 96 97 Oxygen Delivery Method Room Air Room Air 08/06/24 15:50 08/06/24 16:00 08/06/24 16:30 Temperature Temperature Source Pulse Rate 83 82 77 Pulse Rate [Right] Respiratory Rate 22 13 13 Blood Pressure 132/64 135/70 128/77 Blood Pressure [Right Arm] Blood Pressure Mean Blood Pressure Mean [Right Arm] Blood Pressure Source [Right Arm] 02 Sat by Pulse Oximetry 97 96 94 L Oxygen Delivery Method Room Air Room Air 08/06/24 17:01 08/06/24 17:30 08/06/24 17:45 Temperature Temperature Source Pulse Rate 79 74 73 Pulse Rate [Right] Respiratory Rate 12 16 15 Blood Pressure 115/51 L 109/42 L 109/42 L Blood Pressure [Right Arm] Blood Pressure Mean Blood Pressure Mean [Right Arm] Blood Pressure Source [Right Arm] 02 Sat by Pulse Oximetry 93 L 92 L 95 Oxygen Delivery Method Room Air Room Air 08/06/24 18:00 08/06/24 18:30 Temperature Temperature Source Pulse Rate 74 77 Pulse Rate [Right] Respiratory Rate 13 12 Blood Pressure 123/57 L 114/56 L Blood Pressure [Right Arm] Blood Pressure Mean 79 Blood Pressure Mean [Right Arm] Blood Pressure Source [Right Arm] 02 Sat by Pulse Oximetry 95 94 L Oxygen Delivery Method Room Air Lab Data Lab results reviewed: Yes I reviewed the patient's lab results. Lab Results 08/06/24 13:25: WBC 8.6, RBC 5.18, Hgb 15.0, Hct 45.9, MCV 88.6, MCH 29.0, MCHC 32.7, RDW 12.6, Plt Count 328, MPV 9.3, Neut % (Auto) 59.5, Lymph % (Auto) 28.9, [place] % (Auto) 9.0, Eos % (Auto) 1.6, Baso % (Auto) 0.7, Neut # (Auto) 5.1, Lymph # (Auto) 2.5, [place] # (Auto) 0.8, Eos # (Auto) 0.1, Baso # (Auto) 0.1, Sodium 139, Potassium 4.0, Chloride 101, Carbon Dioxide 30, Anion Gap 12.0, BUN 18 H, Creatinine 0.70, Estimated Creat Clear 75, Estimated GFR 82, Est GFR ( Amer) 100, Glucose 135 H, Hemoglobin A1c 6.4 H, Calcium 9.5, Magnesium 1.8, Total Bilirubin 0.9, AST 27, ALT 20, Alkaline Phosphatase 107, Total Protein 7.6, Albumin 4.5, Globulin 3.1, Albumin/Globulin Ratio 1.5, Triglycerides 146, C holesterol 228 H, LDL Cholesterol Direct 125.83, VLDL Cholesterol 29, HDL Cholesterol 59, Cholesterol/HDL Ratio 3.9 H 08/06/24 15:50: Urine Color Yellow, Urine Appearance Clear, Urine pH 7.0, Ur Specific [place] 1.010, Urine Protein Negative, Urine Glucose (UA) 500, Urine Ketones Negative, Urine Blood Negative, Urine Nitrate Negative, Urine Bilirubin Negative, Urine Urobilinogen 0.2, Ur Leukocyte Esterase Trace, Urine RBC 3-5, Urine WBC 5-10, Ur Squamous Epith Cells 10-20, Amorphous Sediment 1+, Urine Bacteria 1+ 08/06/24 13:25 08/06/24 13:25 Orders (Tests/Meds): ED MEDICATIONS Generic Name Dose Route Start Last Admin Trade Name Freq PRN Reason Stop Dose Admin Acetaminophen 650 mg 08/06/24 19:12 Acetaminophen 325mg Tab PO 09/05/24 19:11 Q4HP PRN Fever or Mild Pain (1-3) Famotidine 20 mg 08/06/24 21:00 Famotidine 20mg Tablet PO 09/05/24 20:59 HS [facility] Insulin Human Lispro 0 unit 08/06/24 21:00 Humalog 100 Units/Ml 10ml Vial (Ssi) SUBCUT 09/05/24 20:59 [facility] Protocol Discontinued Medications Generic Name Dose Route Start Last Admin Trade Name Freq PRN Reason Stop Dose Admin Benztropine Mesylate 2 mg 08/06/24 14:17 08/06/24 14:38 Benztropine 1mg Tablet PO 08/06/24 14:18 2 mg ONCE ONE Administration Iopamidol 80 ml 08/06/24 13:34 08/06/24 13:36 Iopamidol-370 (76%);100ml Bottle IV 08/06/24 13:35 80 ml ONCE ONE Administration Sodium Chloride 50 ml 08/06/24 13:34 08/06/24 13:35 0.9 % Sodium Chloride 50 Ml Vial IV 08/06/24 13:35 50 ml ONCE ONE Administration Sodium Chloride 10 ml 08/06/24 13:34 08/06/24 13:36 Sodium Chloride 0.9% 10ml Syr (Rad Only) IV 08/06/24 13:35 10 ml ONCE ONE Administration ORDERS Category Date Time Status CT angio head Stat Cat Scan 08/06/24 13:[address] angio neck Stat Cat Scan 08/06/24 13:[address] head/brain wo con Stat Cat Scan 08/06/24 13:27 Completed CBC w/Auto Diff [Complete Blood Count Auto Diff] Stat Lab 08/06/24 13:25 Completed CMP [Comprehensive Metabolic Panel] Stat Lab 08/06/24 13:25 Completed Hemoglobin A1C Stat Lab 08/06/24 13:25 Completed Lipid Panel Stat Lab 08/06/24 13:25 Completed MG [Magnesium] Stat Lab 08/06/24 13:25 Completed Urinalysis and Microscopic Stat Lab 08/06/24 15:50 Completed Medical Decision Narrative: In summary patient is a 69-year-old female who presents to the emergency department for evaluation of left-sided lip and mouth quivering and left upper and lower extremity paresthesia. Patient is hemodynamically stable with a blood pressure 168/88 pulse 85 with normal sinus rhythm on the bedside monitor breathing 20 times a minute satting at 98% on room air upon arrival, with a temperature of 98.2. Physical exam is remarkable for left-sided mouth tremors of the upper and lower lip and it is hard to appreciate any type of fasciculations of the tongue or abnormal tongue movements. [place] Coma Score is 15 cranial nerves II through XII are intact grossly to exam patient is awake alert and oriented to person place and circumstance. She moves all 4 extremities has no focal muscle deficits. NIH stroke score baseline is 1 and is currently at 3 primarily due to altered sensation on the left upper and lower extremity. Breath sounds clear and equal bilaterally to the bases without adventitious sounds no carotid bruits pupils equal round reactive to light. Differential diagnosis includes medication reaction/tardive dyskinesia versus stroke versus intracranial lesion versus electrolyte abnormality etc. Initial workup will be conducted with CTA of the head and neck CT of the head without contrast hematologic labs. Initial interventions were considered but will be deferred until stroke workup is complete. We will allow permissive hypertension for systolic greater than 165 but less than 200 for now. Patient will continue to have continuous cardiac monitoring and pulse oximetry. Initial workup reviewed by me and her hematologic labs showed a normal white count with normal hemoglobin hematocrit no neutrophilic shift hemoglobin A 1C is 6.4 magnesium is 1.8 and the remainder of her hematologic labs are nonactionable. 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 Review of previous imaging shows that we have no comparison and while this likely is chronic we cannot determine.. Upon repeat evaluation patient NIH stroke score is back to baseline of 1 and the paresthesias are no longer there and she has sharp dull discrimination that are symmetrical in bilateral moves all 4 extremities with no deficits but still has a subjective lip quivering and tongue quivering on the left side.. Given those findings I had interactive discussion with the stroke navigator at [facility] regarding patient TELLO findings and management and she has been accepted for transfer but has been waitlisted due to bed availability. Given this the patient was placed in observation status at 1453 after we have essentially completed a critical care treatment. Patient is already on Plavix aspirin and a statin at baseline. Medical necessity for observational status is pending transfer to [facility] for further neurologic workup. The patient was provided serial reevaluations continuous cardiac monitoring pulse oximetry while awaiting results. Reassessment at 1900 hrs patient had no change in her symptoms after administration of Cogentin. NIH stroke score remains at a 1. Given the waitlisted status and probability of lack of bed availability tonight I have had interactive discussion with hospital medicine here regarding patient TELLO and management and she will be admitted for further evaluation and care pending transfer to [facility]. Total time in observation was 4 hours. Sid Juan: I was consulted by the RAMIN, and we discussed the complexity of the problems being addressed. I approved the treatment and management plan for this patient's care in the emergency department, thus performing a substantive portion of the medical decision catrachito. Last known normal 8 PM last night. Baseline NIH of 1 with central scotoma on the right, new left-sided paresthesias and left oral sensation changes had quivering. CT imaging has right sided encephalomalacia of the right parietal occipital lobe which can explain her old stroke and right-sided visual changes. 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 This is all confounded by multiple psychoactive medication changes for which she may be experiencing akathisia and tardive dyskinesia. Given her significant cardiovascular risk factors and uncertainty as to the acuity of this left-sided vertebral occlusion patient will benefit from further investigation, like possible MRI management of cardiovascular risk factors. Prior to transition of care dominance cut discussed the case with stroke adult daycare coordinator [facility] who accepted patient for transfer and will be placed on a wait list. We contacted hospital medicine and per our agreement we will wait 4 hours until transferring them upstairs. This was pending at time of transfer of care to the oncoming physician, Dr. Tran. <Sid Juan MD - Last Filed: 08/06/24 14:58> Marco A Inquiry Pt receiving controlled substance: No Vital Signs: 08/06/24 13:20 08/06/24 15:00 08/06/24 15:30 Temperature 98.2 F Temperature Source Oral Pulse Rate 82 82 Pulse Rate [Right] 85 Respiratory Rate 20 12 14 Blood Pressure 132/77 132/64 Blood Pressure [Right Arm] 168/88 H Blood Pressure Mean 95 Blood Pressure Mean [Right Arm] 114 Blood Pressure Source [Right Arm] Automatic Cuff 02 Sat by Pulse Oximetry 98 96 97 Oxygen Delivery Method Room Air Room Air 08/06/24 15:50 08/06/24 16:00 08/06/24 16:30 Temperature Temperature Source Pulse Rate 83 82 77 Pulse Rate [Right] Respiratory Rate 22 13 13 Blood Pressure 132/64 135/70 128/77 Blood Pressure [Right Arm] Blood Pressure Mean Blood Pressure Mean [Right Arm] Blood Pressure Source [Right Arm] 02 Sat by Pulse Oximetry 97 96 94 L Oxygen Delivery Method Room Air Room Air 08/06/24 17:01 08/06/24 17:30 08/06/24 17:45 Temperature Temperature Source Pulse Rate 79 74 73 Pulse Rate [Right] Respiratory Rate 12 16 15 Blood Pressure 115/51 L 109/42 L 109/42 L Blood Pressure [Right Arm] Blood Pressure Mean Blood Pressure Mean [Right Arm] Blood Pressure Source [Right Arm] 02 Sat by Pulse Oximetry 93 L 92 L 95 Oxygen Delivery Method Room Air Room Air 08/06/24 18:00 08/06/24 18:30 Temperature Temperature Source Pulse Rate 74 77 Pulse Rate [Right] Respiratory Rate 13 12 Blood Pressure 123/57 L 114/56 L Blood Pressure [Right Arm] Blood Pressure Mean 79 Blood Pressure Mean [Right Arm] Blood Pressure Source [Right Arm] 02 Sat by Pulse Oximetry 95 94 L Oxygen Delivery Method Room Air Lab Data Lab Results 08/06/24 13:25: WBC 8.6, RBC 5.18, Hgb 15.0, Hct 45.9, MCV 88.6, MCH 29.0, MCHC 32.7, RDW 12.6, Plt Count 328, MPV 9.3, Neut % (Auto) 59.5, Lymph % (Auto) 28.9, [place] % (Auto) 9.0, Eos % (Auto) 1.6, Baso % (Auto) 0.7, Neut # (Auto) 5.1, Lymph # (Auto) 2.5, [place] # (Auto) 0.8, Eos # (Auto) 0.1, Baso # (Auto) 0.1, Sodium 139, Potassium 4.0, Chloride 101, Carbon Dioxide 30, Anion Gap 12.0, BUN 18 H, Creatinine 0.70, Estimated Creat Clear 75, Estimated GFR 82, Est GFR ( Amer) 100, Glucose 135 H, Hemoglobin A1c 6.4 H, Calcium 9.5, Magnesium 1.8, Total Bilirubin 0.9, AST 27, ALT 20, Alkaline Phosphatase 107, Total Protein 7.6, Albumin 4.5, Globulin 3.1, Albumin/Globulin Ratio 1.5, Triglycerides 146, C holesterol 228 H, LDL Cholesterol Direct 125.83, VLDL Cholesterol 29, HDL Cholesterol 59, Cholesterol/HDL Ratio 3.9 H 08/06/24 15:50: Urine Color Yellow, Urine Appearance Clear, Urine pH 7.0, Ur Specific [place] 1.010, Urine Protein Negative, Urine Glucose (UA) 500, Urine Ketones Negative, Urine Blood Negative, Urine Nitrate Negative, Urine Bilirubin Negative, Urine Urobilinogen 0.2, Ur Leukocyte Esterase Trace, Urine RBC 3-5, Urine WBC 5-10, Ur Squamous Epith Cells 10-20, Amorphous Sediment 1+, Urine Bacteria 1+ Orders (Tests/Meds): ED MEDICATIONS Generic Name Dose Route Start Last Admin Trade Name Freq PRN Reason Stop Dose Admin Acetaminophen 650 mg 08/06/24 19:12 Acetaminophen 325mg Tab PO 09/05/24 19:11 Q4HP PRN Fever or Mild Pain (1-3) Famotidine 20 mg 08/06/24 21:00 Famotidine 20mg Tablet PO 09/05/24 20:59 HS [facility] Insulin Human Lispro 0 unit 08/06/24 21:00 Humalog 100 Units/Ml 10ml Vial (Ssi) SUBCUT 09/05/24 20:59 [facility] Protocol Discontinued Medications Generic Name Dose Route Start Last Admin Trade Name Freq PRN Reason Stop Dose Admin Benztropine Mesylate 2 mg 08/06/24 14:17 08/06/24 14:38 Benztropine 1mg Tablet PO 08/06/24 14:18 2 mg ONCE ONE Administration Iopamidol 80 ml 08/06/24 13:34 08/06/24 13:36 Iopamidol-370 (76%);100ml Bottle IV 08/06/24 13:35 80 ml ONCE ONE Administration Sodium Chloride 50 ml 08/06/24 13:34 08/06/24 13:35 0.9 % Sodium Chloride 50 Ml Vial IV 08/06/24 13:35 50 ml ONCE ONE Administration Sodium Chloride 10 ml 08/06/24 13:34 08/06/24 13:36 Sodium Chloride 0.9% 10ml Syr (Rad Only) IV 08/06/24 13:35 10 ml ONCE ONE Administration ORDERS Category Date Time Status CT angio head Stat Cat Scan 08/06/24 13:[address] angio neck Stat Cat Scan 08/06/24 13:[address] head/brain wo con Stat Cat Scan 08/06/24 13:27 Completed CBC w/Auto Diff [Complete Blood Count Auto Diff] Stat Lab 08/06/24 13:25 Completed CMP [Comprehensive Metabolic Panel] Stat Lab 08/06/24 13:25 Completed Hemoglobin A1C Stat Lab 08/06/24 13:25 Completed Lipid Panel Stat Lab 08/06/24 13:25 Completed MG [Magnesium] Stat Lab 08/06/24 13:25 Completed Urinalysis and Microscopic Stat Lab 08/06/24 15:50 Completed ECG Data Tracing #1: Independently inter by me rate is 86, rhythm is regular, axis is normal, no ST elevation in anatomical contiguous leads, QTc 429 Medical Decision Narrative: In summary patient is a [age, sex] who presents to the emergency department for evaluation of [complaint]. Patient is [hemodynamically stable/unstable] upon arrival, [febrile/afebrile]. [Unremarkable physical exam, nonfocal exam versus focal remarkable exam]. Differential diagnosis includes [DDx]. Initial workup will be conducted with [hematologic labs, imaging, respiratory swab, describe workup]. Initial interventions include [crystalloid bolus, medications, p.o. challenge, etc.] initial workup reviewed by me [hematologic labs are remarkable for... Imaging remarkable for... Urinalysis remarkable for]. Upon repeat evaluation [patient had acceptable resolution of symptoms, had persistent pain for which additional interventions were conducted (describe interventions), tolerated p.o., was ambulatory, etc.]. Given this the patient was placed in observation status at 1453. Medical necessity for observational status is pending transfer to [facility] for further neurologic workup. The patient was provided serial reevaluations continuous cardiac monitoring pulse oximetry while awaiting results. [Results of testing during observation remarkable for:]. [Because of these results I feel the patient can be discharged with follow-up with her PCP versus I feel the patient requires admission due to]. Total time in observation was [total time]. Sid Juan: I was consulted by the RAMIN, and we discussed the complexity of the problems being addressed. I approved the treatment and management plan for this patient's care in the emergency department, thus performing a substantive portion of the medical decision catrachito. Last known normal 8 PM last night. Baseline NIH of 1 with central scotoma on the right, new left-sided paresthesias and left oral sensation changes had quivering. CT imaging has right sided encephalomalacia of the right parietal occipital lobe which can explain her old stroke and right-sided visual changes. 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 This is all confounded by multiple psychoactive medication changes for which she may be experiencing akathisia and tardive dyskinesia. Given her significant cardiovascular risk factors and uncertainty as to the acuity of this left-sided vertebral occlusion patient will benefit from further investigation, like possible MRI management of cardiovascular risk factors. Prior to transition of care dominance cut discussed the case with stroke adult daycare coordinator [employer] who accepted patient for transfer and will be placed on a wait list. We contacted hospital medicine and per our agreement we will wait 4 hours until transferring them upstairs. This was pending at time of transfer of care to the oncoming physician, Dr. Tran. <Bob Tran MD - Last Filed: 08/06/24 21:10> Vital Signs: 08/06/24 13:20 08/06/24 15:00 08/06/24 15:30 Temperature 98.2 F Temperature Source Oral Pulse Rate 82 82 Pulse Rate [Right] 85 Respiratory Rate 20 12 14 Blood Pressure 132/77 132/64 Blood Pressure [Right Arm] 168/88 H Blood Pressure Mean 95 Blood Pressure Mean [Right Arm] 114 Blood Pressure Source [Right Arm] Automatic Cuff 02 Sat by Pulse Oximetry 98 96 97 Oxygen Delivery Method Room Air Room Air 08/06/24 15:50 08/06/24 16:00 08/06/24 16:30 Temperature Temperature Source Pulse Rate 83 82 77 Pulse Rate [Right] Respiratory Rate 22 13 13 Blood Pressure 132/64 135/70 128/77 Blood Pressure [Right Arm] Blood Pressure Mean Blood Pressure Mean [Right Arm] Blood Pressure Source [Right Arm] 02 Sat by Pulse Oximetry 97 96 94 L Oxygen Delivery Method Room Air Room Air 08/06/24 17:01 08/06/24 17:30 08/06/24 17:45 Temperature Temperature Source Pulse Rate 79 74 73 Pulse Rate [Right] Respiratory Rate 12 16 15 Blood Pressure 115/51 L 109/42 L 109/42 L Blood Pressure [Right Arm] Blood Pressure Mean Blood Pressure Mean [Right Arm] Blood Pressure Source [Right Arm] 02 Sat by Pulse Oximetry 93 L 92 L 95 Oxygen Delivery Method Room Air Room Air 08/06/24 18:00 08/06/24 18:30 Temperature Temperature Source Pulse Rate 74 77 Pulse Rate [Right] Respiratory Rate 13 12 Blood Pressure 123/57 L 114/56 L Blood Pressure [Right Arm] Blood Pressure Mean 79 Blood Pressure Mean [Right Arm] Blood Pressure Source [Right Arm] 02 Sat by Pulse Oximetry 95 94 L Oxygen Delivery Method Room Air Lab Data Lab Results 08/06/24 13:25: WBC 8.6, RBC 5.18, Hgb 15.0, Hct 45.9, MCV 88.6, MCH 29.0, MCHC 32.7, RDW 12.6, Plt Count 328, MPV 9.3, Neut % (Auto) 59.5, Lymph % (Auto) 28.9, [place] % (Auto) 9.0, Eos % (Auto) 1.6, Baso % (Auto) 0.7, Neut # (Auto) 5.1, Lymph # (Auto) 2.5, [place] # (Auto) 0.8, Eos # (Auto) 0.1, Baso # (Auto) 0.1, Sodium 139, Potassium 4.0, Chloride 101, Carbon Dioxide 30, Anion Gap 12.0, BUN 18 H, Creatinine 0.70, Estimated Creat Clear 75, Estimated GFR 82, Est GFR ( Amer) 100, Glucose 135 H, Hemoglobin A1c 6.4 H, Calcium 9.5, Magnesium 1.8, Total Bilirubin 0.9, AST 27, ALT 20, Alkaline Phosphatase 107, Total Protein 7.6, Albumin 4.5, Globulin 3.1, Albumin/Globulin Ratio 1.5, Triglycerides 146, C holesterol 228 H, LDL Cholesterol Direct 125.83, VLDL Cholesterol 29, HDL Cholesterol 59, Cholesterol/HDL Ratio 3.9 H 08/06/24 15:50: Urine Color Yellow, Urine Appearance Clear, Urine pH 7.0, Ur Specific [place] 1.010, Urine Protein Negative, Urine Glucose (UA) 500, Urine Ketones Negative, Urine Blood Negative, Urine Nitrate Negative, Urine Bilirubin Negative, Urine Urobilinogen 0.2, Ur Leukocyte Esterase Trace, Urine RBC 3-5, Urine WBC 5-10, Ur Squamous Epith Cells 10-20, Amorphous Sediment 1+, Urine Bacteria 1+ Orders (Tests/Meds): ED MEDICATIONS Generic Name Dose Route Start Last Admin Trade Name Freq PRN Reason Stop Dose Admin Acetaminophen 650 mg 08/06/24 19:12 Acetaminophen 325mg Tab PO 09/05/24 19:11 Q4HP PRN Fever or Mild Pain (1-3) Famotidine 20 mg 08/06/24 21:00 Famotidine 20mg Tablet PO 09/05/24 20:59 HS KAYLEY Insulin Human Lispro 0 unit 08/06/24 21:00 Humalog 100 Units/Ml 10ml Vial (Ssi) SUBCUT 09/05/24 20:59 ACHS KAYLEY Protocol Discontinued Medications Generic Name Dose Route Start Last Admin Trade Name Freq PRN Reason Stop Dose Admin Benztropine Mesylate 2 mg 08/06/24 14:17 08/06/24 14:38 Benztropine 1mg Tablet PO 08/06/24 14:18 2 mg ONCE ONE Administration Iopamidol 80 ml 08/06/24 13:34 08/06/24 13:36 Iopamidol-370 (76%);100ml Bottle IV 08/06/24 13:35 80 ml ONCE ONE Administration Sodium Chloride 50 ml 08/06/24 13:34 08/06/24 13:35 0.9 % Sodium Chloride 50 Ml Vial IV 08/06/24 13:35 50 ml ONCE ONE Administration Sodium Chloride 10 ml 08/06/24 13:34 08/06/24 13:36 Sodium Chloride 0.9% 10ml Syr (Rad Only) IV 08/06/24 13:35 10 ml ONCE ONE Administration ORDERS Category Date Time Status CT angio head Stat Cat Scan 08/06/24 13:[address] angio neck Stat Cat Scan 08/06/24 13:[address] head/brain wo con Stat Cat Scan 08/06/24 13:27 Completed CBC w/Auto Diff [Complete Blood Count Auto Diff] Stat Lab 08/06/24 13:25 Completed CMP [Comprehensive Metabolic Panel] Stat Lab 08/06/24 13:25 Completed Hemoglobin A1C Stat Lab 08/06/24 13:25 Completed Lipid Panel Stat Lab 08/06/24 13:25 Completed MG [Magnesium] Stat Lab 08/06/24 13:25 Completed Urinalysis and Microscopic Stat Lab 08/06/24 15:50 Completed Medical Decision Narrative: In summary patient is a 69-year-old female who presents to the emergency department for evaluation of left-sided lip and mouth quivering and left upper and lower extremity paresthesia. Patient is hemodynamically stable with a blood pressure 168/88 pulse 85 with normal sinus rhythm on the bedside monitor breathing 20 times a minute satting at 98% on room air upon arrival, with a temperature of 98.2. Physical exam is remarkable for left-sided mouth tremors of the upper and lower lip and it is hard to appreciate any type of fasciculations of the tongue or abnormal tongue movements. [place] Coma Score is 15 cranial nerves II through XII are intact grossly to exam patient is awake alert and oriented to person place and circumstance. She moves all 4 extremities has no focal muscle deficits. NIH stroke score baseline is 1 and is currently at 3 primarily due to altered sensation on the left upper and lower extremity. Breath sounds clear and equal bilaterally to the bases without adventitious sounds no carotid bruits pupils equal round reactive to light. Differential diagnosis includes medication reaction/tardive dyskinesia versus stroke versus intracranial lesion versus electrolyte abnormality etc. Initial workup will be conducted with CTA of the head and neck CT of the head without contrast hematologic labs. Initial interventions were considered but will be deferred until stroke workup is complete. We will allow permissive hypertension for systolic greater than 165 but less than 200 for now. Patient will continue to have continuous cardiac monitoring and pulse oximetry. Initial workup reviewed by me and her hematologic labs showed a normal white count with normal hemoglobin hematocrit no neutrophilic shift hemoglobin A 1C is 6.4 magnesium is 1.8 and the remainder of her hematologic labs are nonactionable. 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 Review of previous imaging shows that we have no comparison and while this likely is chronic we cannot determine.. Upon repeat evaluation patient NIH stroke score is back to baseline of 1 and the paresthesias are no longer there and she has sharp dull discrimination that are symmetrical in bilateral moves all 4 extremities with no deficits but still has a subjective lip quivering and tongue quivering on the left side.. Given those findings I had interactive discussion with the stroke navigator at [facility] regarding patient TELLO findings and management and she has been accepted for transfer but has been waitlisted due to bed availability. Given this the patient was placed in observation status at 1453 after we have essentially completed a critical care treatment. Patient is already on Plavix aspirin and a statin at baseline. Medical necessity for observational status is pending transfer to [facility] for further neurologic workup. The patient was provided serial reevaluations continuous cardiac monitoring pulse oximetry while awaiting results. Reassessment at 1900 hrs patient had no change in her symptoms after administration of Cogentin. NIH stroke score remains at a 1. Given the waitlisted status and probability of lack of bed availability tonight I have had interactive discussion with hospital medicine here regarding patient TELLO and management and she will be admitted for further evaluation and care pending transfer to [facility]. Total time in observation was 4 hours. Sid Juan: I was consulted by the RAMIN, and we discussed the complexity of the problems being addressed. I approved the treatment and management plan for this patient's care in the emergency department, thus performing a substantive portion of the medical decision makinng. Last known normal 8 PM last night. Baseline NIH of 1 with central scotoma on the right, new left-sided paresthesias and left oral sensation changes had quivering. CT imaging has right sided encephalomalacia of the right parietal occipital lobe which can explain her old stroke and right-sided visual changes. 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 This is all confounded by multiple psychoactive medication changes for which she may be experiencing akathisia and tardive dyskinesia. Given her significant cardiovascular risk factors and uncertainty as to the acuity of this left-sided vertebral occlusion patient will benefit from further investigation, like possible MRI management of cardiovascular risk factors. Prior to transition of care dominance cut discussed the case with stroke adult daycare coordinator [employer] who accepted patient for transfer and will be placed on a wait list. We contacted hospital medicine and per our agreement we will wait 4 hours until transferring them upstairs. This was pending at time of transfer of care to the oncoming physician, Dr. Tran. Marc: I assumed primary responsibility for this patient after signout from previous physician. I did nothing for this patient, awaited admission and admitted here. Critical Care <Sid Juan MD - Last Filed: 08/06/24 14:58> Critical Care Time Critical Care Time: Yes Attestation: On 08/06/24, the high probability of a clinically significant, sudden or life threatening deterioration of the following system(s) required my full and direct attention, intervention and personal management. The time I documented below is in addition to time spent performing reported procedures but includes the following listed in this critical care notation. Total Time Total Critical Care Time: 35
--- NOTE | 2024-08-06 13:20 | PC.NURSE ---
Dr Juan notified of possible Stroke Alert. LKN is 2100 08/05/24. Baseline NIH 1, Current NIH is 3 d/t decreased sensation to LUE & LLE and visual deficits (baseline). FS 147
--- NOTE | 2024-08-06 13:25 | ECG_ITS ---
APPROVED REPORT Exam: Resting ECG HR:86 bpm ECG Measurements Heart Rate 86 AXES UT 188 P 80 QRSd 103 QRS 66 QT 385 T 35 QTc 429 Conclusion SINUS RHYTHM NORMAL ECG Electronically signed by : FIONA POWER, 08/21/2024 23:29:05
--- NOTE | 2024-08-06 13:27 | CT_ITS ---
FINAL REPORT CLINICAL HISTORY: L sided paraesthesias, r/o stroke FINDINGS: CTA HEAD TECHNIQUE: Thin section axial CT with contrast with 3D MIP reconstruction No aneurysm is seen. Major intracranial vessels are patent without significant stenosis. IMPRESSION: Unremarkable This study was performed using automated techniques to achieve radiation exposure as low as reasonably achievable Reviewed, Interpreted and Dictated by Faith Goldberg MD Transcribed by Angelica Davenport Authenticated and [facility]
--- NOTE | 2024-08-06 13:27 | CT_ITS ---
FINAL REPORT CLINICAL HISTORY: l sided paraesthesias, r/o stroke FINDINGS: CT NECK ANGIO, WITHOUT AND WITH CONTRAST TECHNIQUE: Thin section axial CT with contrast with multiplanar 3D MIP reconstruction. NASCET criteria and technique was utilized during interpretation. Aortic arch: Arch shows no significant narrowing. Great vessel origins are widely patent. Right carotid: Mild plaque disease with less than 20% stenosis of the proximal ICA origin. Left carotid: Moderate plaque disease with approximately 50% stenosis of the ICA origin. Vertebrals: The right vertebral artery is dominant. There is proximal left vertebral artery occlusion with reconstitution of a diseased mid left vertebral artery. There is an occluded distal left vertebral artery. IMPRESSION: Moderate left ICA stenosis. Dominant right vertebral artery widely patent. Segmental occlusions of disease in the nondominant left vertebral artery. This study was performed using automated techniques to achieve radiation exposure as low as reasonably Reviewed, Interpreted and Dictated by Faith Goldberg MD Transcribed by Angelica Davenport Authenticated and [facility]
--- NOTE | 2024-08-06 13:27 | CT_ITS ---
FINAL REPORT TECHNIQUE: Noncontrast exam. Coronal and sagittal images were obtained and reviewed. This study was performed with techniques to keep radiation doses as low as reasonably achievable, (ALARA). Individualized dose reduction techniques using automated exposure control or adjustment of mA and/or kV according to the patient''s size were employed. CLINICAL HISTORY: L sided paraesthesias, r/o stroke COMPARISON: 07/20/2023 FINDINGS: There is encephalomalacia of the right parieto-occipital lobe. Mild chronic microvascular changes are noted. Ventricles are normal. There is no hemorrhage or edema. No mass effect is seen. Bone windows show no evidence of fracture. IMPRESSION: No acute intracranial abnormality. Reviewed, Interpreted and Dictated by Faith Goldberg MD Transcribed by Jimena Ordonez Authenticated and [facility]
--- NOTE | 2024-08-06 13:30 | PC.NURSE ---
pt to ct scan for stroke scans.
--- NOTE | 2024-08-06 13:30 | PC.NURSE ---
PT GOING TO SCANS
[2024-08-06 13:32] LABS: Basophils # 0.1 K/mm3 (0-0.2); Basophils % 0.7 % (0.1-2.0); Eosinophils # 0.1 K/mm3 (0.0-0.4); Eosinophils % 1.6 % (0.1-12.0); Hematocrit 45.9 % (37.0-47.0); Lymphocytes # 2.5 K/mm3 (0.7-4.5); Lymphocytes % 28.9 % (10-50); Mean Corpuscular HGB Conc 32.7 g/dL (31.8-35.4); Mean Corpuscular Volume 88.6 fl (81-99); Mean Platelet Volume 9.3 fl (7.4-10.4); Monocytes # 0.8 K/mm3 (0.1-1.0); Neutrophils # 5.1 K/mm3 (1.8-7.8); Neutrophils % 59.5 % (37.0-80.0); Platelet Count 328 K/mm3 (142-424); Red Blood Count 5.18 M/mm3 (4.20-5.40); Red Cell Distribution Width 12.6 % (11.5-17.5); White Blood Count 8.6 K/mm3 (4.8-10.8)
[2024-08-06] MEDS: 0.9 % SODIUM CHLORIDE 50 ML VIAL IV (13:35)
[2024-08-06] MEDS: SODIUM CHLORIDE 0.9% 10ML SYR (RAD ONLY) 10 ML IV (13:36)
[2024-08-06] MEDS: IOPAMIDOL-370 (76%);100ML BOTTLE 80 ML IV (13:36)
--- NOTE | 2024-08-06 13:37 | PC.NURSE ---
left eye deficits baseline from prior TIA
--- NOTE | 2024-08-06 13:40 | PC.NURSE ---
pt back to room via stretcher
[2024-08-06 13:51] LABS: Albumin Level 4.5 g/dl (3.5-5.0); Chloride 101 mmol/L (98-107); Sodium 139 mmol/L (136-145)
[2024-08-06 13:53] LABS: Chol/HDL Ratio 3.9 (1-3.5); Cholesterol 228 mg/dl (140-200); HDL Cholesterol 59 mg/dl (40-60); Triglycerides 146 mg/dl (30-150); VLDL Cholesterol 29 mg/dL (0-40)
[2024-08-06 13:54] LABS: Alanine Aminotransferase 20 U/L (12-78); Albumin/Globulin Ratio 1.5 (1.1-1.8); Alkaline Phosphatase 107 U/L (38-126); Aspartate Amino Transferase 27 U/L (14-36); Bilirubin,Total 0.9 mg/dl (0.2-1.3); Blood Urea Nitrogen 18 mg/dl (7-17); Carbon Dioxide 30 mmol/L (22.0-30.0); Creatinine Clearance Estimated 75 mL/min (50-200); Estimated Glomerular Filt Rate 82 ml/min (>60); GFR (African American) 100 ML/MIN (>60); Globulin 3.1 g/dL (1.3-3.2); Total Protein,Serum 7.6 g/dl (6.3-8.2)
[2024-08-06 13:55] LABS: Calcium 9.5 mg/dl (8.4-10.2); Glucose 135 mg/dl (74-100); Magnesium 1.8 mg/dl (1.6-2.3)
[2024-08-06 14:04] LABS: Direct LDL Cholesterol 125.83 mg/dL (100-129)
[2024-08-06 14:08] LABS: Hemoglobin A1C 6.4 % (4.0-6.0)
--- NOTE | 2024-08-06 14:24 | PC.NURSE ---
KESHA IS CALLING [facility] FOR STROKE NAVIGATOR PER JAMES GROVES
--- NOTE | 2024-08-06 14:27 | PC.NURSE ---
[facility] [place] on phone with jehovah's witness stroke navigator
[2024-08-06] MEDS: BENZTROPINE 1MG TABLET 2 MG PO (14:38)
[2024-08-06 15:58] LABS: Microscopic, Urine URINE MICROSCOPIC (MICROSCOPIC)
[2024-08-06 16:01] LABS: Appearance,Urine CLEAR (Clear); Bilirubin,Urine Negative (Negative); Blood, Urine Negative (Negative); Color,Urine YELLOW (Yellow); Glucose,Urine (UA) 500 (Negative); Ketones,Urine Negative (Negative); Leukocyte Esterase,Urine TRACE (Negative); Nitrate,Urine Negative (Negative); Protein,Urine Negative (Negative); Urobilinogen,Urine 0.2 EU/dl (0.2)
[2024-08-06 16:17] LABS: Amorphous Sediment,Urine 1+ /lpf; Bacteria,Urine 1+ /lpf
--- NOTE | 2024-08-06 19:00 | PC.NURSE ---
Report received form Bhavin BAKER Pt resting quietly in bed aware of plans for admission
--- NOTE | 2024-08-06 19:06 | PC.NURSE ---
call made to assistant warehouse manager for bed placement
--- NOTE | 2024-08-06 19:23 | P.HP_ITS ---
<Statement entered by Corey Esteban MD - 08/07/24 21:52> Rounded on patient after nurse practitioner. Personally examined and interviewed patient. Agree with exam findings and care plan as documented. Consider getting MRI in the morning if patient still has not transferred. Concern for strokelike symptoms versus medication side effect. Stable on room air. Reviewed head imaging, has old strokes but no acute findings on CT per my review. Case was discussed with ER physician, requested admission for further management versus pending transfer. Medicine agreed to admit for further care. History of Present Illness *Admission Date: 08/06/24 *Reason for visit:: Neuro sift thumb deficit *History of present illness: This 69-year-old female has come in due to developing lip and tongue quivering along with brain fog. Patient was worked up in our emergency room. She has been accepted at [facility]. There are no beds available and after 4 hours in the emergency room she will be admitted to our floor. That way she can be evaluated on a regular basis also her diabetes mellitus can be monitored. She is insulin-dependent. Patient at present is stable. But still has the symptoms that she came in for. Notable history she is blind in the right eye. Medical history of hypertension restless leg obstructive sleep apnea lumbar spine pain COPD not on oxygen insulin-dependent diabetes and cardiovascular disease. 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 With peripheral neuropathy also being treated for psychiatric issues including anxiety, on antipsychotic medications per her other provider. Plan will keep her on the floor awaiting transfer to [facility]. Will continue to monitor and giving home meds as required. And monitoring blood sugars [facility] Disclaimer: The information contained in this section may have been updated after the patient was seen, as this information can be updated by other users. Medical History Chest pain Body mass index (BMI) of 40.1 to 44.9 in adult Family history of Danitza's disease Ganglion cyst of left foot Typical angina Diabetic gastroparesis Vomiting Bilateral impacted cerumen Pain, gastric Gastritis Cholelithiasis Gallstones Gastroparesis Dyspnea Chest pain Onychoincurvatum Onychodystrophy Trigger finger of right hand Tendinitis of right peroneus brevis tendon Foot pain, right Insulin dependent diabetes mellitus with complications Plantar fasciitis, left Foot pain, left Onychogryposis of toenail Asymptomatic hypertension Dizziness Chest pain Epigastric abdominal pain Dehydration Abnormal cardiovascular stress test Low blood pressure reading Atypical chest pain Myalgia due to statin Fracture of fifth metatarsal bone of right foot with delayed healing Cardiac arrhythmia Sinus bradycardia Back pain Obesity, Class III, BMI 40-49.9 (morbid obesity) Labile essential hypertension TOMAS (obstructive sleep apnea) Ear itching Allergic rhinitis Breast cyst Ganglion cyst Dermoid cyst of head Diabetes mellitus, type 2 Neck pain Moderate mitral regurgitation Mood disorder Obesity HTN (hypertension) COPD (chronic obstructive pulmonary disease) GERD (gastroesophageal reflux disease) Neuropathy Anxiety Restless leg syndrome Surgical History S/P coronary artery stent placement Status post trigger finger release History of cholecystectomy History of hysterectomy History of colonoscopy Family History Other Family history of Alzheimer's disease Family history of myocardial infarction Social History Smoking Status: Former smoker tobacco type: cigarettes packs per day: 1 second hand exposure: Yes alcohol intake: never counseling provided: provider counseling substance use type: denies use current occupational status: other Travel in the last 8 weeks: None household members: children housing: house lives independently: Yes marital status: legally education level: high school current occupational exposures/hazards: No caffeine: Yes special lex needs: No agree to transfusion: No do you feel safe at home: Yes victim of physical abuse: No victim of emotional abuse: No victim of sexual abuse: No would you like helpful sources: No Have you lived/traveled outside [place] in past 30 days?: No Contact w/someone who lives/traveled outside US past 30 days?: No Exposure to someone with infectious disease in past 14 days?: No Do you have a fever (greater than 100.4 F or 38 C)?: No Have you tested positive for COVID-19: No Exposed to someone with COVID-19 in past 14 days?: No Do you have a sore throat?: No Do you have a cough?: No Do you have any weakness?: No Do you have any diarrhea?: No Are you experiencing any unusual bleeding?: No Do you have any muscle aches/pain?: No Do you have any abdominal pain?: No Are you experiencing loss of taste or smell?: No Other Medical History Have you received the Flu Vaccine for this season: No Have you received the Pneumonia Vaccine: Yes Review of Systems Review of Systems Review of systems:: pertinent systems reviewed and negative unless documented below Constitutional Constitutional: Reports as per HPI Comments: Examined patient in the ER she is able to sit up talks very well and actually is in a very good mood. She does note that there is some quivering to the lips and tongue she says this has remained unchanged since her arrival at the emergency room Eyes Eyes: Reports as per HPI Comments: Noting that she is blind in the right eye from a previous stroke ENT Ears, Nose, Mouth, and Throat: Reports as per HPI *Cardiovascular Cardiovascular: Reports as per HPI *Respiratory Respiratory: Reports as per HPI *Gastrointestinal Gastrointestinal: Reports as per HPI *Genitourinary Genitourinary: Reports as per HPI *Musculoskeletal Musculoskeletal: Reports as per HPI Integumentary/Breasts Skin/Breast: Reports as per HPI *Neurologic Neurologic: Reports as per HPI Psychiatric Psychiatric: Reports as per HPI Endocrine Endocrine: Reports as per HPI Hematologic/Lymphatic Hematologic/Lymphatic: Reports as per HPI Allergic/Immunologic Allergic/Immunologic: Reports as per HPI Meds Home Medications and Allergies Home Medications ?Medication ?Instructions ?Recorded ?Confirmed ?Type fluticasone propionate 50 See Rx Instructions .Route 03/18/23 06/26/24 Rx mcg/actuation nasal .COMPLEX #48 grams spray,suspension insulin lispro 100 unit/mL 1 sliding scale dose SQ QAC 03/19/23 06/26/24 History subcutaneous pen Diabetes pen needle, diabetic 31 gauge x #100 ea 03/25/23 04/02/24 Rx 3/16 (BD Ultra-Fine Mini Pen Needle) albuterol sulfate 1.25 mg/3 mL 1.25 mg (3 mL) inhalation QID PRN 06/06/23 06/26/24 Rx solution for nebulization shortness of breath or wheezing #90 mL furosemide 40 mg tablet See Rx Instructions .Route 10/07/23 06/26/24 Rx .COMPLEX #100 tabs albuterol sulfate 90 mcg/actuation 2 puff inhalation Q6H #8.5 grams 10/23/23 06/26/24 Rx aerosol inhaler (Proventil HFA) blood-glucose sensor (Dexcom G7 #14 ea 10/23/23 04/02/24 Rx Sensor device) memantine 7 mg capsule See Rx Instructions .Route 10/23/23 06/26/24 Rx sprinkle,extended release 24hr .COMPLEX #90 caps aripiprazole 5 mg tablet (Abilify) 5 mg PO HS #30 tabs 10/30/23 06/26/24 Rx montelukast 10 mg tablet See Rx Instructions .Route 11/26/23 06/26/24 Rx .COMPLEX #90 tabs losartan 50 mg tablet See Rx Instructions .Route 12/05/23 04/02/24 Rx .COMPLEX #100 tabs Dexilant 60 mg capsule, delayed 60 mg PO DAILY #90 caps 01/06/24 06/26/24 Rx release (dexlansoprazole) sertraline 100 mg tablet mg PO 01/06/24 06/26/24 History clopidogrel 75 mg tablet See Rx Instructions .Route 03/04/24 06/26/24 Rx .COMPLEX #100 tabs insulin degludec 100 unit/mL (3 See Rx Instructions .Route 05/18/24 06/26/24 Rx mL) subcutaneous pen .COMPLEX #15 mL flecainide 100 mg tablet See Rx Instructions .Route 05/22/24 06/26/24 Rx .COMPLEX #200 tabs tirzepatide 10 mg/0.5 mL See Rx Instructions .Route 06/08/24 06/26/24 Rx subcutaneous pen injector .COMPLEX #4 mL (Mounjaro) duloxetine 30 mg capsule,delayed 30 mg PO ONCE #30 caps 06/17/24 06/26/24 Rx release Farxiga 10 mg tablet See Rx Instructions .Route 06/23/24 06/26/24 Rx (dapagliflozin propanediol) .COMPLEX #90 tabs famotidine 20 mg tablet See Rx Instructions .Route 07/31/24 Rx .COMPLEX #100 tabs metoprolol succinate 25 mg See Rx Instructions .Route 07/31/24 Rx tablet,extended release 24 hr .COMPLEX #100 tabs rivaroxaban 20 mg tablet (Xarelto) See Rx Instructions .Route 07/31/24 Rx .COMPLEX #100 tabs cholecalciferol (vitamin D3) 50 50 mcg PO DAILY #90 caps 08/03/24 Rx mcg (2,000 unit) capsule ergocalciferol (vitamin D2) 1,250 1,250 mcg PO WEEKLY #14 caps 08/03/24 Rx mcg (50,000 unit) capsule New Prescriptions to Start Prescriptions: Allergies Allergy/AdvReac Type Severity Reaction Status Date / Time canagliflozin (From Invokana) Allergy Severe blisters Verified 06/26/24 09:52 metformin Allergy Mild Diarrhea, Verified 06/26/24 09:52 nausea, dizziness sitagliptin (From Januvia) Allergy Mild Hives Verified 06/26/24 09:52 linaclotide (From Linzess) Allergy Rash Verified 06/26/24 09:52 metronidazole (From Metrogel) Allergy Rash Verified 06/26/24 09:52 nystatin Allergy Dizziness Verified 06/26/24 09:52 rosuvastatin (From Crestor) Allergy Unknown Verified 06/26/24 09:52 allergy reaction semaglutide (From Ozempic) AdvReac Severe Abdominal Verified 06/26/24 09:52 Pain atorvastatin (From Lipitor) AdvReac Intermediate body aches Verified 06/26/24 09:52 andmental confusion imdur AdvReac Mild headache Uncoded 02/13/24 09:27 Exam Data for Last 24 hours Vital signs and Labs for Last 24 Hours: Temp Pulse Resp BP Pulse Ox O2 Del Method 98.2 F 77 12 114/56 L 94 L Room Air 08/06/24 13:20 08/06/24 18:30 08/06/24 18:30 08/06/24 18:30 08/06/24 18:30 08/06/24 18:30 Laboratory Results - last 24 hr 08/06/24 13:25: WBC 8.6, RBC 5.18, Hgb 15.0, Hct 45.9, MCV 88.6, MCH 29.0, MCHC 32.7, RDW 12.6, Plt Count 328, MPV 9.3, Neut % (Auto) 59.5, Lymph % (Auto) 28.9, Dent % (Auto) 9.0, Eos % (Auto) 1.6, Baso % (Auto) 0.7, Neut # (Auto) 5.1, Lymph # (Auto) 2.5, Dent # (Auto) 0.8, Eos # (Auto) 0.1, Baso # (Auto) 0.1, Sodium 139, Potassium 4.0, Chloride 101, Carbon Dioxide 30, Anion Gap 12.0, BUN 18 H, Creatinine 0.70, Estimated Creat Clear 75, Estimated GFR 82, Est GFR ( Amer) 100, Glucose 135 H, Hemoglobin A1c 6.4 H, Calcium 9.5, Magnesium 1.8, Total Bilirubin 0.9, AST 27, ALT 20, Alkaline Phosphatase 107, Total Protein 7.6, Albumin 4.5, Globulin 3.1, Albumin/Globulin Ratio 1.5, Triglycerides 146, Cholesterol 228 H, LDL Cholesterol Direct 125.83, VLDL Cholesterol 29, HDL Cholesterol 59, Cholesterol/HDL Ratio 3.9 H 08/06/24 15:50: Urine Color Yellow, Urine Appearance Clear, Urine pH 7.0, Ur Specific [place] 1.010, Urine Protein Negative, Urine Glucose (UA) 500, Urine Ketones Negative, Urine Blood Negative, Urine Nitrate Negative, Urine Bilirubin Negative, Urine Urobilinogen 0.2, Ur Leukocyte Esterase Trace, Urine RBC 3-5, Urine WBC 5-10, Ur Squamous Epith Cells 10-20, Amorphous Sediment 1+, Urine Bacteria 1+ I & O for Last 24 hours: Intake & Output 08/04/24 08/05/24 08/06/24 08/07/24 05:59 05:59 05:59 05:59 Weight 203 lb Constitutional Constitutional: no acute distress *Routine HEENT Exam Head: Present normocephalic and atraumatic Eye: Present normal accommodation and other (Blindness in right eye, vision very good and left) ENT: Present mucous membranes moist *Routine Neck Exam Neck: Present supple and full ROM Routine Chest/Breast/Axilla Exam Comments: There was no sign of any injury to chest wall or pain patient is able to sit up and move a take a deep breath without any difficulty *Routine Respiratory Exam Respiratory: Present CTA bilaterally, normal respiratory effort, able to speak in complete sentences and symmetric chest movement *Routine Cardiovascular Exam Cardiovascular: Present RRR, Normal S1 and Normal S2 *Routine Abdominal Exam Abdominal: Present soft and normoactive bowel sounds *Routine Rectal Exam Rectal:: deferred *Routine Genitalia Exam Genitalia:: deferred *Routine Extremities Exam Extremities: Present normal capillary refill Comments: Moves all extremities well Routine Back/Spine/Pelvis Exam Back/Spine: Present full ROM Comments: No signs of injury or deficits in range of motion of back *Routine Skin Exam Skin: Present intact, dry and warm Comments: There was no signs of any skin lesions are breakdown anywhere *Routine Neurological Exam Neurological: Present alert, oriented X3, CN II-XII intact, normal reflexes, normal tone, vision grossly intact, hearing grossly intact and normal speech Comments: As noted the tongue has some quivering lower lip has some quivering but there is no droop on either side of face Routine Psychiatric Exam Psychiatric: Present normal affect, normal thought process, cooperative, good insight and good judgment Comments: Patient is very appropriate gets a very good history she is nice to talk to her only needs that she wants to get off that ER stretcher and into a better bed H&P: Result Impressions 1. Neurologic process of unknown cause, quivering of tongue and lip with a transit numbness to one arm Imaging and Cardiology CT scan - head: Status: pending (There is encephalomalacia of the right parieto-occipital lobe. Mild chronic microvascular changes are noted. Ventricles are normal. There is no hemorrhage or edema. No mass effect is seen. Bone windows show no evidence of fracture.) and final report ct scan neck: Status: image reviewed by me (CT NECK ANGIO, WITHOUT AND WITH CONTRAST TECHNIQUE: Thin section axial CT with contrast with multiplanar 3D MIP reconstruction. NASCET criteria and technique was utilized during interpretation. Aortic arch: Arch shows no significant narrowing. Great vessel origins are widely patent. Right ca) Assessment and Plan *Assessment and plan (1) Paresthesia: Status: Acute Category: Medical Code(s): R20.2 - Paresthesia of skin (2) Occlusion of left vertebral artery: Status: Acute Category: Medical Code(s): I65.02 - Occlusion and stenosis of left vertebral artery (3) Obesity: Status: Chronic Qualifiers: Obesity type: due to excess calories Obesity classification: adult class 3 (BMI >= 40) Serious obesity comorbidity presence: with serious comorbidity Body mass index: BMI 40.0-44.9 Qualified Code(s): E66.01 - Morbid (severe) obesity due to excess calories; Z68.41 - Body mass index [BMI] 40.0- 44.9, adult Category: Medical Code(s): E66.9 - Obesity, unspecified (4) Diabetes mellitus: Status: Chronic Qualifiers: Diabetes mellitus type: type 2 Diabetes mellitus complication status: with neurologic complications Diabetes mellitus filler leaf cutter long insulin use: with filler leaf cutter long use Diabetes mellitus complication detail: with polyneuropathy Qualified Code(s): E11.42 - Type 2 diabetes mellitus with diabetic polyneuropathy Category: Medical Code(s): E11.9 - Type 2 diabetes mellitus without complications (5) Depression: Status: Chronic Qualifiers: Depression Type: major depressive disorder Major depression recurrence: recurrent Active/Remission status: currently active Major depression episode severity: moderate Qualified Code(s): F33.1 - Major depressive disorder, recurr ent, moderate Category: Medical Code(s): F32.A - Depression, unspecified Plan 1. Awaiting transfer to [facility] for further neurologic workup. Patient will be placed upstairs. As no bed is available at [facility] at this time. Continue neurologic checks and maintain vital signs. Fingerstick blood sugars as needed. Will continue patient's home meds. Will hopefully be able to transfer her in a reasonable period of time, I have talked to the patient to let her know that it may be tomorrow before [facility] has a bed or could be late tonight. Presently patient is very stable and we just need to observe at the present time not going to change any of her medications besides adding sliding scale fingerstick blood sugars
--- NOTE | 2024-08-06 19:28 | PC.NURSE ---
Report called to SAMUEL Werner
--- NOTE | 2024-08-06 19:47 | PC.NURSE ---
Pt transported to inptatient unit via wheelchair by [facility] Skin pink warm and dry Resp full and easy Speech clear and appropriate
--- NOTE | 2024-08-06 19:57 | PC.NURSE ---
Patient arrived to floor via wheelchair from ED at 19:55.
[2024-08-06] MEDS: FAMOTIDINE 20MG TABLET 20 MG PO (21:20)
--- NOTE | 2024-08-06 21:34 | PC.NURSE ---
Isidoro BRADY was paged at this time, concerning the followin. Dexcom Approval for Glucose Checks - the patient had requested to see if she can use her Dexcom to avoid fingersticks. This has been OK'd by Isidoro BRADY. 2. Reorder Home Medications Taken at Bedtime - the patient takes metoprolol succinate, losartan, and flecainide at bedtime; these medications were requested to be reordered this shift per MAR. 3. Nighttime Insulin - Isidoro BRADY was informed about the type of insulin the patient takes at night per communication order. The patient explained that she takes long-acting insulin at night accordingly to her glucose reading (if >200, she will take 65 units of Tresiba insulin and will taper to 20 units for glucose readings less than). The patient stated that she does not feel like she needs to take any insulin right now (glucose is currently 144 per Dexcom) and will check her reading again after eating chicken noodle soup tonight. Sliding scale Lispro insulin is present in the MAR if needed; insulin coverage will not be given at this time.
[2024-08-06] MEDS: METOPROLOL SUCCINATE XL 25MG TABLET PO (22:15)
[2024-08-07] VITALS: BP 137/66; PULSE 69; RESP 16; TEMP 36.6; O2SAT 96
--- NOTE | 2024-08-07 03:47 | PC.NURSE ---
Addendum entered by Debbi Ahumada RN 08/07/24 05:40: Patient's glucose reading this morning was 141 per Dexcom. No sliding-scale insulin coverage required at this time. Original Note: Ms Marybel Shin was newly admitted this shift on behalf of the documented diagnosis vertebral artery occlusion and carotid artery stenosis. Admission assessments and home medication reconciliation were completed by the charge nurse (Anton Worrell RN) this shift. She is pleasantly alert and oriented x4. The patient has not had any further complaints of numbness, tingling, or weakness anywhere in her body. No further complaints of worsening left lip trembling or worsening brain fog. Negative for facial drooping thus far. She has been ambulating independently in her room/to the bathroom without any difficulties. Patient reported that she has loss of vision in her right eye (previously occurred). NIH scale 1. Medications ordered this shift were administered as appropriately per MAR. Auscultation of her heart, lungs, and bowels were within normal findings this shift. She has consumed chicken noodle soup, fresh ice water, and sugar-free chocolate pudding as bedtime snacks. Vital signs have remained relatively stable this shift. Glucose readings checked via Dexcom (approved for use this shift). At this time, the patient is resting in bed without any further complaints; she was observed to be awake for the majority of the night. No new needs thus far. Call light within reach. Patient continues to wait patiently for transfer to [facility] for further neurological care.
[2024-08-07 04:00] VITALS: BP 134/69; PULSE 81; RESP 16; TEMP 36.8; O2SAT 94; BMI 35.1
--- NOTE | 2024-08-07 05:37 | PC.NURSE ---
The patient stated that she wants her code status to remain FULL CODE instead of DNR/DNI at this time (did initially request DNR upon admission).
[2024-08-07 07:38] LABS: Basophils # 0.1 K/mm3 (0-0.2); Basophils % 0.7 % (0.1-2.0); Eosinophils # 0.2 K/mm3 (0.0-0.4); Eosinophils % 2.3 % (0.1-12.0); Hematocrit 41.7 % (37.0-47.0); Hemoglobin 13.7 g/dL (12.2-16.2); Lymphocytes % 27.5 % (10-50); Mean Corpuscular HGB Conc 32.9 g/dL (31.8-35.4); Mean Corpuscular Hemoglobin 28.9 pg (27.0-31.2); Mean Platelet Volume 9.3 fl (7.4-10.4); Monocytes # 0.7 K/mm3 (0.1-1.0); Monocytes % 9.8 % (1.7-9.3); Neutrophils # 4.4 K/mm3 (1.8-7.8); Neutrophils % 59.6 % (37.0-80.0); Platelet Count 262 K/mm3 (142-424); Red Blood Count 4.74 M/mm3 (4.20-5.40); Red Cell Distribution Width 12.7 % (11.5-17.5); White Blood Count 7.3 K/mm3 (4.8-10.8)
[2024-08-07 07:54] LABS: Anion Gap 6.1 mEq/L (5-15); Blood Urea Nitrogen 14 mg/dl (7-17); Calcium 9.1 mg/dl (8.4-10.2); Carbon Dioxide 31 mmol/L (22.0-30.0); Chloride 103 mmol/L (98-107); Creatinine Clearance Estimated 78 mL/min (50-200); Estimated Glomerular Filt Rate 82 ml/min (>60); GFR (African American) 100 ML/MIN (>60); Glucose 141 mg/dl (74-100); Magnesium 1.9 mg/dl (1.6-2.3); Potassium 4.1 mmoL/L (3.5-5.1); Sodium 136 mmol/L (136-145)
[2024-08-07 08:00] VITALS: BP 131/77; PULSE 80; RESP 18; TEMP 36.6; O2SAT 99
[2024-08-07] MEDS: FLECAINIDE 50MG TABLET 100 MG PO (08:51)
[2024-08-07] MEDS: METOPROLOL SUCCINATE XL 25MG TABLET 25 MG PO (08:51)
[2024-08-07] MEDS: IRBESARTAN 75MG TABLET 75 MG PO (08:52)
[2024-08-07] MEDS: CLOPIDOGREL 75MG TAB 75 MG PO (08:52)
--- NOTE | 2024-08-07 09:46 | MR_ITS ---
FINAL REPORT TECHNIQUE: Multiplanar MR without contrast CLINICAL HISTORY: STROKE LIKE SYMPTOMS COMPARISON: None FINDINGS: Diffusion sequences demonstrate signal in the left middle cerebellar peduncle consistent with T2 shine through artifact. There are also foci of abnormal signal in the left middle cerebral peduncle, right niki, left basal ganglia. There is encephalomalacia in the right parieto-occipital cortex from a remote infarct. Scattered periventricular white matter signal changes are seen compatible with moderate chronic ischemic gliotic disease. No mass, hemorrhage or edema is seen. Ventricles are normal. Major vascular flow voids are intact. IMPRESSION: 1. No mass, acute infarct or hydrocephalus 2. There are multiple small chronic infarcts without acute process. Reviewed, Interpreted and Dictated by Faith Goldberg MD Transcribed by Alla Burciaga Authenticated and [facility][1]
[2024-08-07] MEDS: diazePAM 10MG/2ML SYRINGE 5 MG IV (11:12)
[2024-08-07 12:00] VITALS: BP 148/84; PULSE 78; RESP 18; TEMP 36.9; O2SAT 96
[2024-08-07 12:23] LABS: POC Glucose,Bedside 114 (70-110)
--- NOTE | 2024-08-07 13:12 | HMH.PHAINT1 ---
Pharmacy Intervention Comments: home medication list verified using the outpatient pharmacy list and pt interview
--- NOTE | 2024-08-07 13:37 | PC.NURSE ---
new IV placed in right forearm due to IV in left AC falling out. new IV patent, dressing C/D/I
--- NOTE | 2024-08-07 13:55 | EXP.DC.SUM ---
General Admission date:: 08/06/24 Discharge date: 08/07/24 HPI HPI HPI: This 69-year-old female has come in due to developing lip and tongue quivering along with brain fog. Patient was worked up in our emergency room. She has been accepted at [facility]. There are no beds available and after 4 hours in the emergency room she will be admitted to our floor. That way she can be evaluated on a regular basis also her diabetes mellitus can be monitored. She is insulin-dependent. Patient at present is stable. But still has the symptoms that she came in for. Notable history she is blind in the right eye. Medical history of hypertension restless leg obstructive sleep apnea lumbar spine pain COPD not on oxygen insulin-dependent diabetes and cardiovascular disease. 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 With peripheral neuropathy also being treated for psychiatric issues including anxiety, on antipsychotic medications per her other provider. Plan will keep her on the floor awaiting transfer to [facility]. Will continue to monitor and giving home meds as required. And monitoring blood sugars Hospital Course Hospital Course Hospital Course: Ms. Shin is a 69-year-old female who presented with paresthesia of face and quivering of tongue and lip. Concern for possible strokelike symptoms. CT was obtained that showed old right-sided stroke, but no acute findings. Additionally she was recently started on increased doses of her anxiety/depression meds. Differential includes strokelike symptoms versus tardive dyskinesia from psych medications. [facility] was contacted for neurologic and psychiatric eval. Patient was accepted put on a wait list. She was therefore admitted to medicine for further management. Psychiatric meds were held and she was observed overnight. Neurologic symptoms more or less resolved. MRI obtained showing no acute stroke. Does have chronic findings that are old. Given her improvement in symptoms and negative MRI, deemed appropriate to discharge home with adjustments to her psychiatric meds and plan for outpatient follow-up with [facility] stroke clinic. Given contact information. Appointment scheduled prior to discharge his clinic contacted patient while she was at the hospital. Tolerating p.o. intake. Stable to discharge. Will continue Cymbalta 30 mg which is a decreased dose. Continue memantine. Discontinued her Abilify. -Continue Plavix 75 mg daily, Xarelto 20 mg nightly. -Continue home regimen for diabetes -Continue home regimen for hypertension Total time spent on discharge 32 minutes in counseling, documentation, chart review, and direct care with patient. Exam Data for Last 24 hours Vital signs and Labs for Last 24 Hours: Temp Pulse Resp BP Pulse Ox O2 Del Method 98.4 F 78 18 148/84 H 96 Room Air 08/07/24 12:00 08/07/24 12:00 08/07/24 12:00 08/07/24 12:00 08/07/24 12:00 08/07/24 13:00 Laboratory Results - last 24 hr 08/06/24 13:25: Carbon Dioxide 30, Anion Gap 12.0, Glucose 135 H, Hemoglobin A1c 6.4 H, Calcium 9.5, Magnesium 1.8, Total Bilirubin 0.9, Alkaline Phosphatase 107, Total Protein 7.6, Globulin 3.1, Albumin/Globulin Ratio 1.5, LDL Cholesterol Direct 125.83 08/06/24 15:50: Urine Color Yellow, Urine Appearance Clear, Urine pH 7.0, Ur Specific [place] 1.010, Urine Protein Negative, Urine Glucose (UA) 500, Urine Ketones Negative, Urine Blood Negative, Urine Nitrate Negative, Urine Bilirubin Negative, Urine Urobilinogen 0.2, Ur Leukocyte Esterase Trace, Urine RBC 3-5, Urine WBC 5-10, Ur Squamous Epith Cells 10-20, Amorphous Sediment 1+, Urine Bacteria 1+ 08/07/24 07:30: WBC 7.3, RBC 4.74, Hgb 13.7, Hct 41.7, MCV 88.0, MCH 28.9, MCHC 32.9, RDW 12.7, Plt Count 262, MPV 9.3, Neut % (Auto) 59.6, Lymph % (Auto) 27.5, [place] % (Auto) 9.8 H, Eos % (Auto) 2.3, Baso % (Auto) 0.7, Neut # (Auto) 4.4, Lymph # (Auto) 2.0, [place] # (Auto) 0.7, Eos # (Auto) 0.2, Baso # (Auto) 0.1, Sodium 136, Potassium 4.1, Chloride 103, Carbon Dioxide 31 H, Anion Gap 6.1, BUN 14, Creatinine 0.70, Estimated Creat Clear 78, Estimated GFR 82, Est GFR ( Amer) 100, Glucose 141 H, Calcium 9.1, Magnesium 1.9 08/07/24 12:16: POC Glucose 114 H I & O for Last 24 hours: Intake & Output 08/04/24 08/05/24 08/06/24 08/07/24 23:59 23:59 23:59 23:59 Intake Total 1292 / 1292 Output Total 0 / 0 Balance 1292 / 1292 Weight 94.12 kg 95.617 kg Constitutional Constitutional: no acute distress, obese, chronically ill appearing and cooperative *Routine HEENT Exam Head: Present normocephalic Eye: Present EOMI and PERRL ENT: Present mucous membranes moist *Routine Neck Exam Neck: Present supple; Absent lymphadenopathy *Routine Respiratory Exam Respiratory: Present CTA bilaterally; Absent rhonchi, wheezes or crackles *Routine Cardiovascular Exam Cardiovascular: Present RRR *Routine Abdominal Exam Abdominal: Present soft and normoactive bowel sounds; Absent tenderness *Routine Rectal Exam Patient deferred: visual exam *Routine Exam Patient deferred: external exam *Routine Extremities Exam Extremities: Absent cyanosis, clubbing or edema *Routine Skin Exam Skin: Present warm; Absent rash *Routine Neurological Exam Neurological: Present alert, oriented X3, CN II-XII intact and moving all extremities; Absent altered mental status Results Data Completed and Pending Labs on day of discharge: Labs from last 24 hours 08/07/24 08/07/24 08/06/24 12:16 07:30 15:50 WBC 7.3 RBC 4.74 Hgb 13.7 Hct 41.7 MCV 88.0 MCH 28.9 MCHC 32.9 RDW 12.7 Plt Count 262 MPV 9.3 Neut % (Auto) 59.6 Lymph % (Auto) 27.5 [place] % (Auto) 9.8 H Eos % (Auto) 2.3 Baso % (Auto) 0.7 Neut # (Auto) 4.4 Lymph # (Auto) 2.0 [place] # (Auto) 0.7 Eos # (Auto) 0.2 Baso # (Auto) 0.1 Sodium 136 Potassium 4.1 Chloride 103 Carbon Dioxide 31 H Anion Gap 6.1 BUN 14 Creatinine 0.70 Estimated Creat Clear 78 Estimated GFR 82 Est GFR ( Amer) 100 Glucose 141 H POC Glucose 114 H Hemoglobin A1c Calcium 9.1 Magnesium 1.9 Total Bilirubin Alkaline Phosphatase Total Protein Globulin Albumin/Globulin Ratio LDL Cholesterol Direct Urine Color Yellow Urine Appearance Clear Urine pH 7.0 Ur Specific [place] 1.010 Urine Protein Negative Urine Glucose (UA) 500 Urine Ketones Negative Urine Blood Negative Urine Nitrate Negative Urine Bilirubin Negative Urine Urobilinogen 0.2 Ur Leukocyte Esterase Trace Urine RBC 3-5 Urine WBC 5-10 Ur Squamous Epith Cells 10-20 Amorphous Sediment 1+ Urine Bacteria 1+ 08/06/24 13:25 WBC RBC Hgb Hct MCV MCH MCHC RDW Plt Count MPV Neut % (Auto) Lymph % (Auto) [place] % (Auto) Eos % (Auto) Baso % (Auto) Neut # (Auto) Lymph # (Auto) [place] # (Auto) Eos # (Auto) Baso # (Auto) Sodium Potassium Chloride Carbon Dioxide 30 Anion Gap 12.0 BUN Creatinine Estimated Creat Clear Estimated GFR Est GFR ( Amer) Glucose 135 H POC Glucose Hemoglobin A1c 6.4 H Calcium 9.5 Magnesium 1.8 Total Bilirubin 0.9 Alkaline Phosphatase 107 Total Protein 7.6 Globulin 3.1 Albumin/Globulin Ratio 1.5 LDL Cholesterol Direct 125.83 Urine Color Urine Appearance Urine pH Ur Specific [place] Urine Protein Urine Glucose (UA) Urine Ketones Urine Blood Urine Nitrate Urine Bilirubin Urine Urobilinogen Ur Leukocyte Esterase Urine RBC Urine WBC Ur Squamous Epith Cells Amorphous Sediment Urine Bacteria DS: Diagnosis Discharge Diagnosis (1) Paresthesia: Status: Acute Code(s): R20.2 - Paresthesia of skin (2) Occlusion of left vertebral artery: Status: Acute Code(s): I65.02 - Occlusion and stenosis of left vertebral artery (3) Obesity: Status: Chronic Code(s): E66.9 - Obesity, unspecified Qualifiers: Body mass index: BMI 40.0-44.9 Obesity classification: adult class 3 (BMI >= 40) Obesity type: due to excess calories Serious obesity comorbidity presence: with serious comorbidity Qualified Code(s): E66.01 - Morbid (severe) obesity due to excess calories; Z68.41 - Body mass index [BMI] 40.0-44.9, adult (4) Diabetes mellitus: Status: Chronic Code(s): E11.9 - Type 2 diabetes mellitus without complications Qualifiers: Diabetes mellitus complication detail: with polyneuropathy Diabetes mellitus complication status: with neurologic complications 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 insulin use: with halfway use Diabetes mellitus type: type 2 Qualified Code(s): E11.42 - Type 2 diabetes mellitus with diabetic polyneuropathy (5) Depression: Status: Chronic Code(s): F32.A - Depression, unspecified Qualifiers: Active/Remission status: currently active Depression Type: major depressive disorder Major depression episode severity: moderate Major depression recurrence: recurrent Qualified Code(s): F33.1 - Major depressive disorder, recurrent, moderate Meds Home Medications and Allergies Home Medications ?Medication ?Instructions ?Recorded ?Confirmed ?Type insulin lispro 100 unit/mL 1 sliding scale dose SQ QAC 03/19/23 08/06/24 History subcutaneous pen Diabetes blood-glucose sensor (Dexcom G7 #14 ea 10/23/23 08/07/24 Rx Sensor device) cholecalciferol (vitamin D3) 50 50 mcg PO DAILY #90 caps 08/03/24 08/06/24 Rx mcg (2,000 unit) capsule ergocalciferol (vitamin D2) 1,250 1,250 mcg PO WEEKLY #14 caps 08/03/24 08/06/24 Rx mcg (50,000 unit) capsule clopidogrel 75 mg tablet 75 mg PO DAILY 08/07/24 08/07/24 History dapagliflozin propanediol 10 mg 10 mg PO DAILY 08/07/24 08/07/24 History tablet (Farxiga) duloxetine 30 mg capsule,delayed 30 mg PO DAILY 08/07/24 08/07/24 History release famotidine 20 mg tablet 20 mg PO HS 08/07/24 08/07/24 History flecainide 100 mg tablet 100 mg PO BID 08/07/24 08/07/24 History insulin degludec 100 unit/mL (3 0 unit SQ HS 08/07/24 08/07/24 History mL) subcutaneous pen losartan 50 mg tablet 50 mg PO DAILY 08/07/24 08/07/24 History memantine 7 mg capsule 7 mg PO DAILY 08/07/24 08/07/24 History sprinkle,extended release 24hr metoprolol succinate 25 mg 25 mg PO DAILY 08/07/24 08/07/24 History tablet,extended release 24 hr rivaroxaban 20 mg tablet (Xarelto) 20 mg PO QPMWITHMEAL 08/07/24 08/07/24 History tirzepatide 10 mg/0.5 mL 10 mg SQ WEEKLY 08/07/24 08/07/24 History subcutaneous pen injector (Mounhosearo) New Prescriptions to Start Prescriptions: Allergies Allergy/AdvReac Type Severity Reaction Status Date / Time canagliflozin (From Invokana) Allergy Severe blisters Verified 06/26/24 09:52 metformin Allergy Mild Diarrhea, Verified 06/26/24 09:52 nausea, dizziness sitagliptin (From Januvia) Allergy Mild Hives Verified 06/26/24 09:52 linaclotide (From Linzess) Allergy Rash Verified 06/26/24 09:52 metronidazole (From Metrogel) Allergy Rash Verified 06/26/24 09:52 nystatin Allergy Dizziness Verified 06/26/24 09:52 rosuvastatin (From Crestor) Allergy Unknown Verified 06/26/24 09:52 allergy reaction semaglutide (From Ozempic) AdvReac Severe Abdominal Verified 06/26/24 09:52 Pain atorvastatin (From Lipitor) AdvReac Intermediate body aches Verified 06/26/24 09:52 andmental confusion imdur AdvReac Mild headache Uncoded 02/13/24 09:27 Discharge Plan Disposition Patient Disposition: Home, Self-Care Condition: Fair Follow up Plan Follow up with: Radha Petit APRN [Primary Care Provider] - 08/14/24 10:00 am (appointment saturday08/10/24 at 2:[address] [place] [address]. [address]. phone #[phone] ) Prescriptions/Medication Reconciliation: Continued (DME) Dexcom G7 Sensor Device See Rx Instructions .Route Qty: 14 3RF Rx Instructions: As directed insulin lispro 100 unit/mL insulin pen 1 sliding scale dose SQ QAC Patient Comments: 125-150 6 units 150-200 8 units over 200 10 units ergocalciferol (vitamin D2) 1,250 mcg (50,000 unit) capsule 1,250 mcg PO WEEKLY Qty: 14 3RF cholecalciferol (vitamin D3) 50 mcg (2,000 unit) capsule 50 mcg PO DAILY Qty: 90 3RF duloxetine 30 mg capsule,delayed release(DR/EC) 30 mg PO DAILY famotidine 20 mg tablet 20 mg PO HS flecainide 100 mg tablet 100 mg PO BID metoprolol succinate 25 mg tablet extended release 24 hr 25 mg PO DAILY Xarelto 20 mg tablet 20 mg PO QPMWITHMEAL memantine 7 mg capsule,sprinkle,ER 24hr 7 mg PO DAILY dapagliflozin propanediol [Farxiga] 10 mg tablet 10 mg PO DAILY Patient Comments: TAKE 1 TABLET BY MOUTH ONCE DAILY Mounjaro 10 mg/0.5 mL pen injector 10 mg SQ WEEKLY Patient Comments: INJECT 1 SYRINGE SUBCUTANEOUSLY ONCE A WEEK losartan 50 mg tablet 50 mg PO DAILY clopidogrel 75 mg tablet 75 mg PO DAILY insulin degludec 100 unit/mL (3 mL) insulin pen 0 unit SQ HS Rx Instructions: INJECT SUBCUTANEOUSLY AT BEDTIME sliding scale based Problem Reconciliation Problems Reviewed?: Yes Patient Discharge Instructions ACTIVITY: Continue current activity DIET: continue same diet Patient Instructions: Diabetes, General (Alternative Therapy), DI for Numbness/Tingling, DI for Carotid Artery Stenosis Print Language: Albanian Providers Primary Care Provider: Radha Petit Provider: Corey Esteban Attending Provider: Corey Esteban
--- NOTE | 2024-08-10 10:56 | SW/DCPLANNER ---
Spoke with patient on the phone. Patient stated that she is doing okay. Patient stated that she is aware of her upcoming appointment. Patient stated that she was not given any new medication. Patient stated that she has no concerns or questions at this time. Pauly Darnell
== END 2024-08-07 13:58 | disposition home or self-care (01) ==
LOC: ER 19:07 → 2ND 19:13
PROVIDERS: Physician Assistant; Admitting Provider Internal Medicine Adolescent Medicine; Emergency Provider Emergency Medicine; PCP Family Medicine; Visit Provider Internal Medicine Adolescent Medicine
DX: R20.2 Paresthesia of skin (principal); I65.02 Occlusion and stenosis of left vertebral artery; I65.22 Occlusion and stenosis of left carotid artery; G93.89 Other specified disorders of brain; I69.398 Other sequelae of cerebral infarction; E11.43 Type 2 diabetes mellitus with diabetic autonomic (poly)neuropathy; K31.84 Gastroparesis; I11.9 Hypertensive heart disease without heart failure; I34.0 Nonrheumatic mitral (valve) insufficiency; F41.9 Anxiety disorder, unspecified; F33.1 Major depressive disorder, recurrent, moderate; G25.81 Restless legs syndrome; K21.9 Gastro-esophageal reflux disease without esophagitis; G47.33 Obstructive sleep apnea (adult) (pediatric); M79.10 Myalgia, unspecified site; H54.61 Unqualified visual loss, right eye, normal vision left eye; E66.9 Obesity, unspecified; F39 Unspecified mood [affective] disorder; J44.9 Chronic obstructive pulmonary disease, unspecified; Z79.85 Long-term (current) use of injectable non-insulin antidiabetic drugs; Z79.4 Long term (current) use of insulin; Z82.0 Family history of epilepsy and other diseases of the nervous system; Z87.891 Personal history of nicotine dependence; Z82.49 Family history of ischemic heart disease and other diseases of the circulatory system; Z90.79 Acquired absence of other genital organ(s); Z90.49 Acquired absence of other specified parts of digestive tract; Z95.5 Presence of coronary angioplasty implant and graft; Z79.51 Long term (current) use of inhaled steroids; Z79.899 Other long term (current) drug therapy; Z79.02 Long term (current) use of antithrombotics/antiplatelets; Z79.01 Long term (current) use of anticoagulants; Z68.30 Body mass index [BMI] 30.0-30.9, adult; Z88.1 Allergy status to other antibiotic agents; Z88.8 Allergy status to other drugs, medicaments and biological substances
CPT/HCPCS: 36415; 70450; 70496; 70498; 70551; 80048; 80053; 80061; 81001; 82962; 83036; 83735; 85025; 93005; 99291; G0378; J3360; Q9967

== ENCOUNTER 2024-08-25 11:44 | Outpatient (CLI) | payer MEDICARE, SELFPAY ==
--- NOTE | 2024-08-25 | CA_ITS ---
APPROVED REPORT EXAM: Comprehensive 2D, Doppler, and color-flow Echocardiogram Inventory Manager: Jhoana Dickey RDCS Ht: 5 ft 5 in Wt: 209lbs BSA: 2.02 BP: 121/70 mmHg Indications: CP,H/O CVA,MOD MR,PAF,HTN,HLP BUBBLE STUDY ATTEMPTED M-Mode Dimensions RVDd 2.54 cm (0.9-2.6) LA Diam 4.12 cm (1.9-4.0) LVDd 5.63 cm (3.5-5.7) LVDs 3.58 cm (3.5-5.7) IVSd 0.64 cm (0.6-1.1) PWd 0.68 cm (0.6-1.1) EF (Teich) 65.50% FS 36.40% EDV (Teich) 155.60 mL TAPSE 2.34 (<1.7) ESV (Teich) 53.70 mL LV Diastology E Decel Time 313 (160-240 msec) E/A Ratio 1.6 Aortic Valve NAYAN Index 1.12 cm2/m2 AoV Peak Maurizio. 156.0 (50-130 cm/s) AO Peak GR. 9.70 mmHg AO Mean GR. 4.80 (<5 mmHg) AO VTI 33.7 (18-25 cm) NAYAN (VTI) 2.31 (2.5-4.5 cm2) Mitral Valve MV E Max Maurizio. 141.0 (40-130 cm/s) MV A Velocity 89.0 (40-130 cm/s) E/A Ratio 1.58 MV PHT 92.0 ms Left Ventricle The left ventricle is normal size. The left ventricular systolic function is normal. The left ventricular ejection fraction is within the normal range. There is increased LV wall thickness. There is normal LV segmental wall motion. The left ventricular diastolic function is normal. LVEF is 60%. Right Ventricle Right ventricle is mildly dilated. The right ventricular systolic function is normal. Atria Left atrium is mildly dilated. The right atrium size is normal. Color Doppler demonstrates left to right interatrial shunt. Agitated saline administration was attempted, but was indeterminate due to technically difficult study. Aortic Valve The aortic valve is mildly thickened. Trace aortic regurgitation. There is no aortic valvular stenosis. Mitral Valve Moderate mitral annular calcification. The mitral valve leaflets are mildly thickened. No evidence of mitral valve stenosis. Mean MV gradient 4 mmHg (HR 60 bpm). Moderate mitral regurgitation. Tricuspid Valve Tricuspid valve leaflets are thin and pliable. Trace tricuspid regurgitation. There is insufficient TR jet to estimate RVSP. Pulmonic Valve The pulmonary valve is normal in structure. Trace pulmonic regurgitation. Great Vessels The aortic root is normal in size. IVC is normal in size and collapses >50% with inspiration. Pericardium There is no pericardial effusion. Other Information Study Quality: Fair Conclusion Normal biventricular systolic function. Mild RV dilation. LA dilation. Moderate MR. Color Doppler demonstrates left to right interatrial shunt. Agitated saline administration was attempted, but was indeterminate due to technically difficult study. Electronically signed by : Maryuri Wills MD 08/30/2024 21:16:15
--- NOTE | 2024-08-25 | CA_ITS ---
APPROVED REPORT Exam: Pharmacologic Technologist: Ofelia Johnson Ht: 5 ft 5 in Wt: 210 lbs BSA: 2.02 m2 HR: 62 bpm BP: 133/67 mmHg Stress Test Details Test: Lexiscan HR Resting HR: 62 bpm Max Heart Rate (APMHR): 149 bpm Max HR Achieved: 74 bpm Target HR (85% APMHR): 127 bpm % of APMHR: 50 Recovery HR: 70 bpm BP Resting BP: 133.0/67.0 mmHg Max BP: 135.0/68.0 mmHg Recovery BP: 130.0/64.0 mmHg ECG Resting ECG: Sinus Stress ECG Conclusion Symptoms: Chest pressure, dyspnea Arrhythmias/Ectopy: - ST-T Changes: Less than [address] depression Conclusion: EKG unremarkable due to Lexiscan infusion. Electronically signed by : Maryuri Wills MD 08/26/2024 00:29:14
[2024-08-25] MEDS: REGADENOSON 0.4MG/5ML SYRINGE 0.4 MG IV (12:00)
[2024-08-25] MEDS: SODIUM CHLORIDE 0.9% 10ML SYR (RAD ONLY) 10 ML IV ×2 (12:00→13:00)
--- NOTE | 2024-08-25 12:30 | NM_ITS ---
APPROVED REPORT Exam: Nuclear Stress Test Indication: cad, 1 stent, chf, htn, diabetes, fm hx, a-fib, palpitations,. fatigue Patient Location: Outpatient Stress Tech: Ofelia Johnson [place] Tech:Cinthia Erwin VUKamari RT (R)(N)(M) Ht: 5 ft 5 in Wt: 204 lbs Bra Size: b HR: 62 bpm BP: 133/67 mmHg BSA: 1.99 m2 TID: 1.00 BMI: 33.9 History: cad, 1 stent, chf, htn, diabetes, fm hx, a-fib, palpitations,. fatigue Procedure: Patient received 0.4 mg of intravenous Lexiscan, resting heart rate 62 bpm, resting blood pressure 133/67 mmHg, with Lexiscan maximum heart rate achieved was 74 bpm which is % of the maximum predicted heart rate and blood pressure was 135/68 mmHg. With Lexiscan, patient denied any complaint of chest pain. pt. c/o chest pain with lexiscan Cardiac Stress and Resting SPECT Images: Cardiac Stress and Resting SPECT images were obtained using technetium 99m Myoview 29.5 mCi stress and 10.53 mCi at rest. Resting and stress imaging in supine and prone positions demonstrate no evidence of fixed or reversible perfusion defects. Gated imaging demonstrates normal global and regional LV systolic function. LVEF is calculated at 67%. Conclusion: No evidence of fixed or reversible perfusion defects. Gated imaging demonstrates normal global and regional LV systolic function. LVEF is calculated at 67%. Electronically signed by : Maryuri Wills MD 08/26/2024 00:26:13
[2024-08-25] MEDS: ISOTOPE MYOVIEW (PER STUDY) 1 DOSE IV (13:13)
--- OUTSIDE RECORDS SUMMARY | 2024-08-27 21:10 | XMS_ITS ---
Author Organization [facility] Address [address] [place] [address] Phone Care Team Providers Care Shank Threader Name Role Phone Unavailable Unavailable Unavailable Plan of Treatment No Plan of Treatment Recorded Assessments Includes: Assessments for all patient encounters No Assessments Recorded Medical Equipment - Implanted Devices Includes: Current and historical Devices No Medical Equipment Recorded Medications Administered Includes: Administered Medications in patient's chart No Administered Medications Recorded Results Includes: Results from 08/28/2023 through 08/27/2024 No Results Recorded For Specified Dates History of Present Illness History of Present Illness not supported for this document type No History of Present Illness Recorded Social History No Social History Recorded - Smoking Status Unknown Medical History Includes: Medical History in patient's chart No Medical History Recorded Family History Includes: Family History in patient's chart No Family History Recorded Review of Systems Review of Systems not supported for this document type No Review of Systems Recorded Mental Status No Mental Status Recorded Functional Status No Functional Status Recorded Physical Exam Physical Exam not supported for this document type No Physical Exam Recorded Clinical Notes Includes: Signed Clinical Notes starting from 05/03/2022 No Clinical Notes Recorded
--- OUTSIDE RECORDS SUMMARY | 2024-08-27 21:10 | XMS_ITS ---
Care Plan - [facility] Created on: August 27, 2024 Marybel Shin : 1955 Sex: Female Author Organization [facility] Address [address] [place] [address] Phone Care Team Providers Care Silver Designer Name Role Phone Unavailable Unavailable Unavailable
== END 2024-08-25 23:59 | disposition home or self-care (01) ==
LOC: RAD 11:44
PROVIDERS: PCP Family Medicine; Visit Provider Nurse Practitioner Family
DX: I25.10 Atherosclerotic heart disease of native coronary artery without angina pectoris (principal); I50.9 Heart failure, unspecified; E11.9 Type 2 diabetes mellitus without complications
CPT/HCPCS: 78452; 93017; 93018; 93306; A9502; J2785

== ENCOUNTER 2024-11-24 09:55 | Day surgery (SDC) | payer MEDICARE, MEDICAID, SELFPAY ==
[2024-10-09 12:05] VITALS: BMI 35.1
[2024-11-17 14:25] VITALS: BMI 33.3
--- NOTE | 2024-11-24 10:17 | ECG_ITS ---
APPROVED REPORT Exam: Resting ECG HR:65 bpm ECG Measurements Heart Rate 65 AXES MN 202 P 81 QRSd 94 QRS 82 QT 425 T 39 QTc 436 Conclusion SINUS RHYTHM NORMAL ECG UNCONFIRMED REPORT Electronically signed by : Michele Ruby MD 11/25/2024 08:24:53
[2024-11-24] MEDS: LACTATED RINGERS 1000ML 1,000 ML 50 ML IV (10:21)
[2024-11-24 10:29] VITALS: BP 134/75; PULSE 68; RESP 16; TEMP 36.4; O2SAT 100
[2024-11-24 10:48] LABS: Hematocrit 43.9 % (37.0-47.0); Hemoglobin 14.3 g/dL (12.2-16.2); Immature Granulocytes % 0.2 %; Mean Corpuscular HGB Conc 32.6 g/dL (31.8-35.4); Mean Corpuscular Hemoglobin 28.9 pg (27.0-31.2); Mean Corpuscular Volume 88.9 fl (81-99); Nucleated Red Blood Cells % 0 %; Platelet Count 259 K/mm3 (142-424); Red Blood Count 4.94 M/mm3 (4.20-5.40); Red Cell Distribution Width-SD 43.5 fL; White Blood Count 10.4 K/mm3 (4.8-10.8)
--- NOTE | 2024-11-24 10:57 | EXP.ANES.CKL ---
[facility] Disclaimer: The information contained in this section may have been updated after the patient was seen, as this information can be updated by other users. Medical History Diabetes mellitus Upper abdominal pain Abnormal echocardiogram Interatrial cardiac shunt Angina pectoris Wellness examination Memory loss CVA (cerebral vascular accident) Chest pain Body mass index (BMI) of 40.1 to 44.9 in adult Family history of [place]'s disease Ganglion cyst of left foot Typical angina Diabetic gastroparesis Vomiting Bilateral impacted cerumen Pain, gastric Gastritis Cholelithiasis Gallstones Gastroparesis Dyspnea Chest pain Onychoincurvatum Onychodystrophy Trigger finger of right hand Tendinitis of right peroneus brevis tendon Foot pain, right Insulin dependent diabetes mellitus with complications Plantar fasciitis, left Foot pain, left Onychogryposis of toenail Asymptomatic hypertension Dizziness Chest pain Epigastric abdominal pain Dehydration Abnormal cardiovascular stress test Low blood pressure reading Atypical chest pain Myalgia due to statin Fracture of fifth metatarsal bone of right foot with delayed healing Cardiac arrhythmia Sinus bradycardia Back pain Obesity, Class III, BMI 40-49.9 (morbid obesity) Labile essential hypertension TOMAS (obstructive sleep apnea) Ear itching Allergic rhinitis Breast cyst Ganglion cyst Dermoid cyst of head Diabetes mellitus, type 2 Neck pain Moderate mitral regurgitation Mood disorder Obesity HTN (hypertension) COPD (chronic obstructive pulmonary disease) GERD (gastroesophageal reflux disease) Neuropathy Anxiety Restless leg syndrome Surgical History S/P coronary artery stent placement Status post trigger finger release History of cholecystectomy History of hysterectomy History of colonoscopy Family History Other Family history of Alzheimer's disease Family history of myocardial infarction Social History Smoking Status: Former smoker tobacco type: cigarettes packs per day: 1 second hand exposure: Yes alcohol intake: never counseling provided: provider counseling substance use type: denies use current occupational status: retired Travel in the last 8 weeks?: None household members: children housing: house lives independently: Yes marital status: legally education level: high school current occupational exposures/hazards: No caffeine: No special lex needs: No agree to transfusion: No do you feel safe at home: Yes victim of physical abuse: No victim of emotional abuse: No victim of sexual abuse: No would you like helpful sources: No Have you lived/traveled outside [place] in past 30 days?: No Contact w/someone who lives/traveled outside US past 30 days?: No Exposure to someone with infectious disease in past 14 days?: No Do you have a fever (greater than 100.4 F or 38 C)?: No Have you tested positive for COVID-19?: No Exposed to someone with COVID-19 in past 14 days?: No Do you have a sore throat?: No Do you have a cough?: No Do you have any weakness?: No Are you experiencing any nausea/vomitting?: No Do you have any diarrhea?: No Are you experiencing any unusual bleeding?: No Do you have any muscle aches/pain?: No Do you have any abdominal pain?: No Are you experiencing loss of taste or smell?: No [facility] Anesthesia Checklist Patient Identification Patient Identification: Arm Band and Verbal (Name & ) Structural Data Admitted From: Home Planned Operative Procedure/s: YANIRA Consent for Planned Operative Procedure(s) Verified: Yes Verified Documents: Surgical Consent and History and Physical NPO Status Verified Time NPO: 00:00 Additional verifications Anesthesia Reactions: No Hx Blood Transfusions: No Blood Transfusion Reaction: No Airway Assessment Mallampati Score:: Class II Dentition: Partials Neurological Assessment Level of Consciousness: Awake, Alert and Appropriate Hx Seizures: No Anesthesia Plan Anesthesia Risk discussed: Yes Anesthesia Plan: Verified ASA Class: III Anesthesia Type: MAC
[2024-11-24 10:59] LABS: Anion Gap 14.3 mEq/L (5-15); Blood Urea Nitrogen 21 mg/dl (7-17); Calcium 9.5 mg/dl (8.4-10.2); Carbon Dioxide 31 mmol/L (22.0-30.0); Chloride 101 mmol/L (98-107); Creatinine Clearance Estimated 74 mL/min (50-200); Creatinine,Serum 1.00 mg/dl (0.52-1.04); Estimated Glomerular Filt Rate 55 ml/min (>60); GFR (African American) 66 ML/MIN (>60); Glucose 81 mg/dl (74-100); Potassium 4.3 mmoL/L (3.5-5.1); Sodium 142 mmol/L (136-145)
[2024-11-24 11:00] LABS: INR 1.47 (0.9-1.1); Prothrombin Time 15.9 seconds (10.1-12.5)
[2024-11-24 11:30] VITALS: BP 106/71; PULSE 81; RESP 17; TEMP 36.4; O2SAT 96
[2024-11-24 11:45] VITALS: BP 114/73; PULSE 78; RESP 17; TEMP 36.4; O2SAT 99
[2024-11-24 12:00] VITALS: BP 116/75; PULSE 76; RESP 18; O2SAT 100
[2024-11-24 12:15] VITALS: BP 125/77; PULSE 76; RESP 18; O2SAT 100
== END 2024-11-24 12:23 | disposition home or self-care (01) ==
PROVIDERS: PCP Family Medicine; Visit Provider Internal Medicine
DX: R93.1 Abnormal findings on diagnostic imaging of heart and coronary circulation (principal); R94.39 Abnormal result of other cardiovascular function study; Q24.8 Other specified congenital malformations of heart; I10 Essential (primary) hypertension; E11.40 Type 2 diabetes mellitus with diabetic neuropathy, unspecified; E11.43 Type 2 diabetes mellitus with diabetic autonomic (poly)neuropathy; K31.84 Gastroparesis; E66.813 Obesity, class 3; Z68.41 Body mass index [BMI] 40.0-44.9, adult; J44.9 Chronic obstructive pulmonary disease, unspecified; G47.33 Obstructive sleep apnea (adult) (pediatric); Z86.73 Personal history of transient ischemic attack (TIA), and cerebral infarction without residual deficits; Z87.891 Personal history of nicotine dependence; Z79.85 Long-term (current) use of injectable non-insulin antidiabetic drugs; Z79.01 Long term (current) use of anticoagulants; Z79.84 Long term (current) use of oral hypoglycemic drugs; Z79.02 Long term (current) use of antithrombotics/antiplatelets; Z79.4 Long term (current) use of insulin; Z79.899 Other long term (current) drug therapy; Z88.8 Allergy status to other drugs, medicaments and biological substances; Z82.49 Family history of ischemic heart disease and other diseases of the circulatory system
CPT/HCPCS: 36415; 80048; 85025; 85610; 93005; 93270; 93312; 93319; J2003; J2704; J7120

== ENCOUNTER 2024-12-24 21:07 | Outpatient (CLI) | payer MEDICARE, MEDICAID, SELFPAY ==
--- OUTSIDE RECORDS SUMMARY | 2019-04-20 04:15 | XMS_ITS | Continuity of Care Document ---
Author Organization [facility] Address [address] [place] [address] Phone Care Team Providers Care Dressmaker Helper Name Role Phone Urszula Lott OD Unavailable Unavaila ble Allergies, Adverse Reactions, Alerts Substance Reaction Status Criticality canagliflozin Unknown(unknown) Active No Informa tion Nhefhrs-EXR-QfX Reductase Inhibitors Unknown(unknown) Active No Information Medications Medication Instructions Dosage Effective Dates (start - stop) Status Comments glipizide 10 mg tablet Take 1 tablet by mouth daily In the morning. - Active atenolol 50 mg tablet Take 1 tablet by mouth daily - Active losartan 100 mg-hydrochlorothiazid e 25 mg tablet Take 1 tablet by mouth daily - Active metformin 1,000 mg tablet Take 1 tablet by mouth 2 times daily (with meals) - Active ropinirole 2 mg tablet Take 1 tablet by mouth 2 times daily - Active sertraline 100 mg tablet Take 1 tablet by mouth daily - Active gemfibrozil 600 mg tablet Take 1 tablet by mouth 2 times daily (before meals) - Active Dexilant 60 mg capsule, delayed release Take 1 capsule by mouth daily - Active buspirone 30 mg tablet Take 30 mg by mouth 2 times daily - Active bupropion HCl SR 150 mg tablet,12 hr sustained-release Take 1 tablet by mouth 2 times daily - Active ranolazine ER 500 mg tablet,extended release,12 hr Take 500 mg by mouth 2 times daily - Active tizanidine 2 mg tablet Take 2 mg by mouth every 8 hours - Active Basaglar KwikPen U-100 Insulin 100 unit/mL (3 mL) subcutaneous inject by subcutaneous route as per insulin protocol 0.00 - Active ondansetron [address] 1 tablet by translingual route every 8 hours for 2 days on top of the tongue where they will dissolve, then swallow 4 MG - Active cetirizine 10 mg tablet take 1 tablet by oral route every day 10 MG - Active aspirin 81 mg tablet,delayed release Take 81 mg by mouth daily - Active Lantus Solostar U-100 Insulin 100 unit/mL (3 mL) subcutaneous pen Inject 45 Units into the skin nightly - No Longer Active Pneumovax 23 25 mcg/0.5 mL injection solution Inject 0.5 mLs into the muscle once for 1 dose - No Longer Active Shingrix (PF) 50 mcg/0.5 mL intramuscular suspension, kit Inject 0.5 mLs into the muscle once for 1 dose 50 MCG IM then repeat 2-6 months. - No Longer Active hydroxyzine HCl 25 mg tablet Take 1 tablet by mouth every 6 hours as needed for Itching - No Longer Active ondansetron [address] 1 tablet under the tongue every 8 hours as needed for Nausea or Vomiting Let dissolve in mouth. - No Longer Active Procedures Procedure Date Eye Exam New Patient Comprehensive 1 Or More Visits Advance Directives Directive Yes / No Effective Date File Name No Information Encounters Encounter Description Practice Location Reason(s) For Visit Diagnoses Date Provider Providers Copied on Encounter [facility] , [address] [place], [address], [place] tel:[phone] [facility] diabetic eye exam (chief complaint) Type 2 diabetes without complications [facility] Urszula. [address], [place], [address], [place]. tel:[phone] Referring Provider: Donta Minaya I, [address], [place], [address] . tel:[phone] Family History Family Member Type Diagnosis Age At Onset Problem (finding) No family history of Ca taracts Problem (finding) No family history of Ca ncer, basal cell Problem (finding) No family history of Gl [place] Mother Problem (finding) hypertension Problem (finding) No family history of Di abetes mellitus Problem (finding) No family history of Re tinal disease Payers Payer name Insurance type Covered constitution party ID Authoriza tion(s) Medicare [place] [id number] Social History Type Description Quantity Date Captured Comments Alcohol Use Details Unknown Caffeine Use Details Unknown Tobacco Use Status Ex-cigarette smoker 019 Smoking Status Former smoker Smoking Tobacco Use Details Cigarette: Age Started: 20, Age Stopped: 43, Years Used 23 Cigarette: 1 Packs per day, Pack Year: 23 Sex Female Chief Complaint And Reason For Visit From encounter dated '04/20/2019 08:15'. diabetic eye exam (chief complaint). Description: The 63 year old female presents for evaluation ofdiabetic eye exam in the right and left eyes. Patient is type 2 diabetic and has been for about 3 years. She is on both insulin and oral medication for the diabetes. Patient states that her last A1c was 14.? and the blood sugar was 320. The pt c/o [place] being blurry up close and far away. Pt also c/o difficulty driving at night due to glare and halos around headlights. Reason For Referral Reason For Referral No Information Plan Of Treatment Date Type Action Status Goal Tobacco cessation counseling completed History Of Present Illness Encounter Date Complaint History Of Prese nt Illness diabetic eye exam The 63 year ol d female presents for evaluation of diabetic eye exam in the right and left eyes. Patient is type 2 diabetic and has been for about 3 years. She is on both insulin and oral medication for the diabetes. Patient states that her last A1c was 14.? and the blood sugar was 320. The pt c/o [facility] being blurry up close and far away. Pt also c/o difficulty driving at night due to glare and halos around headlights. Functional Status Date Functional Assessmen t No Information Instructions Date Instruction Additional Infor bullion Impression/Plan Assessments Type Assessment Date assessment Type 2 diabetes without complica tions Patient Care Teams Name Effective Dates (start - stop) Status Members No Information
--- OUTSIDE RECORDS SUMMARY | 2024-12-24 21:10 | XMS_ITS | Encounter Summary ---
Author Organization [facility] Address [address] [place] [id number] Care Team Providers Care Fence Erector Name Role Phone Alice Rutledge Primary Care Provider Michelle Solomon MD Unavailable [phone] Michelet Guteirrez MD Unavailable [phone] Gianni Jara MD Unavailable [phone] Christine Blank NP Unavailable Unavailable Encounter Details Date Type Department Care Team (Late st Contact Info) Description 07/13/2019 Orders Only Laboratory [address] [place] [address] Marguerite Bernal [address] [place] [address] Flank pain (Primary Dx) Social History Tobacco Use Types Packs/Day Years Used Date Smoking Tobacco: Former Cigarettes Q uit: 2020 Smokeless Tobacco: Never Alcohol Use Standard Drinks/Week Comments Never 0 (1 standard drink = 0.6 oz pur e alcohol) AUDIT-C Answer Date Recorded Frequency of Alcohol Consumption Never 05/26/2019 Average Number of Drinks Not on file 020 Frequency of Binge Drinking Not on file 11/2019 Comments Unknown Sex and Gender Information Value Date Recorded Sex Assigned at Not on file Legal Sex Female 10:18 AM EST Gender Identity Not on file Sexual Orientation Not on file documented as of this encounter Plan of Treatment Not on file documented as of this encounter Results * (ABNORMAL) COMPREHENSIVE METABOLIC PANEL (07/13/2019 11:32 AM EST) Sodium 141 135 - 146 mmol/L [facility] Potassium 4.1 3.5 - 5.1 mmol/L [facility] Chloride 99 98 - 110 mmol/L [facility] CO2 28 22 - 29 mmol/L [facility] Anion Gap 14(H) 5 - 13 mmol/L [facility] Comment:Anion gap calculatio n does not include potassium (K+) value. BUN 22 7 - 25 mg/dL [facility] Creatinine 0.96 0.50 - 1.20 mg/dL [facility] Glucose 204(H) 70 - 99 mg/dL [facility] GFR MDRD Af Amer 70 See Note [facility] Comment: GFR is estimated using Creatinine, age, gender and race. Patient's values should be interpreted as a trend. Between 30 and 90 ml/min/1.73m2, clinical correlation is needed. For additional information: www.kidney.org Calcium 9.4 8.4 - 10.5 mg/dL [facility] GFR MDRD Non Af Amer 58 See Note [facility] Comment: GFR is estimated using Creatinine, age, gender and race. Patient's values should be interpreted as a trend. Between 30 and 90 ml/min/1.73m2, clinical correlation is needed. For additional information: www.kidney.org Total Bilirubin 0.2 0.2 - 1.2 mg/dL [facility] AST 16 0 - 30 U/L [facility] ALT 17 0 - 40 U/L [facility] Alkaline Phosphatase 110 33 - 140 U/L [facility] Total Protein 7.2 6.0 - 8.0 g/dL [facility] Albumin 4.0 3.5 - 5.0 g/dL [facility] Globulin 3.2 2.0 - 3.7 g/dL [facility] Albumin/Globulin Ratio 1.3 1.0 - 2.1 [facility] BUN/Creatinine Ratio 23 [facility] Serum (Serum) 07/13/2019 11: 32 AM EST 07/13/2019 4:35 PM EST Marguerite Bernal CHEMISTRY ORDERABLES Final Resul t [facility] [address] documented in this encounter Visit Diagnoses Diagnosis Flank pain- Primary Abdominal pain, unspecified site documented in this encounter Care Teams Fence Erector Relationship Specialty Start Date End Date Alice Rutledge PCP - General Nurse Practitioner 06/23/19 Michelle Solomon MD [address] [place] [address] Medical Oncology 07/15/19 Michelet Gutierrez MD [address] [facility] [place] [address] Pulmonary Disease 07/15/19 Gianni Jara MD [address] [facility] [address] [place] [id number] Cardiology 07/15/19 Christine Blank NP [address] [address] Nurse Practitioner Sleep Medicine 07/15/19 documented as of this encounter
--- OUTSIDE RECORDS SUMMARY | 2024-12-24 21:10 | XMS_ITS | Encounter Summary ---
Author Organization [facility] Address [address] [place] [address], [address] [place] [address] Care Team Providers Care Parking Lot Spotter Name Role Phone Alice Rutledge APRN, CNP Primary Care Prov ider Encounter Details Date Type Department Care Team (Late st Contact Info) Description 05/24/2019 FollowUp Telephone Encounter [facility] [address] [place] [address] Tracy Jara Social History Tobacco Use Types Packs/Day Years Used Date Smoking Tobacco: Former Smokeless Tobacco: Never Comments:roughly 3 months, s rodolfo 06/2018 Alcohol Use Standard Drinks/Week Comments Never 0 (1 standard drink = 0.6 oz pur e alcohol) AUDIT-C Answer Date Recorded Frequency of Alcohol Consumption Never 08/01/2018 Average Number of Drinks Not on file 019 Frequency of Binge Drinking Not on file 07/18 PHQ-2 Answer Date Recorded PHQ-2 Score 1 02/06/2019 Comments No Sex and Gender Information Value Date Recorded Sex Assigned at Not on file Legal Sex Female 12:44 PM EST Gender Identity Not on file Sexual Orientation Not on file documented as of this encounter Plan of Treatment Not on file documented as of this encounter Visit Diagnoses Not on filedocumented in this encounter Additional Health Concerns Assessment Noted Time A fall risk assessment has been complete d for the patient 02/06/2019 9:37 AM EDT documented as of this encounter Care Teams Parking Lot Spotter Relationship Specialty Start Date End Date Alice Rutledge APRN - CNP [address] [address] PCP - General Family Nurse Practitioner 05/19/19 documented as of this encounter
--- OUTSIDE RECORDS SUMMARY | 2024-12-24 21:10 | XMS_ITS | Encounter Summary ---
Author Organization [facility] Address [address] [place] [address], [address] [place] [address] Care Team Providers Care Lawn Sprinkler Servicer Name Role Phone Alice Rutledge APRN, CNP Primary Care Prov ider Encounter Details Date Type Department Care Team (Late st Contact Info) Description 05/22/2019 FollowUp Telephone Encounter [facility] [address] [place] [address] Tracy Jara Social History Tobacco Use Types [...] documented as of this encounter Care Teams Lawn Sprinkler Servicer Relationship Specialty Start Date End Date Alice Rutledge APRN - CNP [address] [address] PCP - General Family Nurse Practitioner 05/19/19 documented as of this encounter
--- OUTSIDE RECORDS SUMMARY | 2024-12-24 21:10 | XMS_ITS | Encounter Summary ---
Author Organization [facility] Address [address] [place] [address], [address] [place] [address] Care Team Providers Care Assorter Name Role Phone Alice Rutledge APRN - PROJECT CONTROLS SCHEDULER Primary Care Prov ider Reason for Visit * Reason Comments Medication Refill Encounter Details Date Type Department Care Team (Late st Contact Info) Description 11/05/2019 Refill [facility] Endocrinology [address] [place] [address] Aria Villarreal MD [address] [place], [place] [id number] Medication Refill Social History Tobacco Use Types Packs/Day Years Used Date Smoking Tobacco: Former Cigarettes 0.5 10.9 0 05/2008 - 04/2019 Smokeless Tobacco: Never Comments:roughly 3 months, s rodolfo 06/2018 Alcohol Use Standard Drinks/Week Comments Never 0 (1 standard drink = 0.6 oz pur e alcohol) Social Connection and Isolat ion Panel [NHANES] Answer Date Recorded Frequency of Communication w ith Friends and Family More than three times a week 08/06/2019 Frequency of Social Gatherin gs with Friends and Family More than three times a week 08/06/2019 Attends [employer] Not on file 08/05 Active Member of Clubs or Organizations Not on f ile 08/06/2019 Attends Club or Organization Meetings Not on imelda e 08/06/2019 Marital Status Not on file 08/06/2019 AUDIT-C Answer Date Recorded Frequency of Alcohol Consumption Never 08/01/2018 Average Number of Drinks Not on file 019 Frequency of Binge Drinking Not on file 07/18 PHQ-2 Answer Date Recorded PHQ-2 Score 1 02/06/2019 Hunger Vital Sign Answer Date Recorded Worried About Running Out of Food in the Last Ye ar Sometimes true 08/06/2019 Ran Out of Food in the Last Year Sometimes true 08/06/2019 PRAPARE - Transportation Answer Date Re corded Lack of Transportation (Medical) No 08/06/2019 Lack of Transportation (Non-Medical) No 08/06/2019 Comments No Sex and Gender Information Value Date Recorded Sex Assigned at Not on file Legal Sex Female 12:44 PM EST Gender Identity Not on file Sexual Orientation Not on file COVID-19 Exposure Response Date Recorded In the last month, have you been in contact with someone who was confirmed or suspected to have Coronavirus / COVID-19? No / Unsure 10/27/2019 5:23 PM EDT documented as of this encounter Plan of Treatment Not on file documented as of this encounter Visit Diagnoses Diagnosis Uncontrolled type 2 diabetes mellitus with hyperglycemia (HCC) Morbid obesity due to excess calories (HCC) Neuropathy due to type 2 diabetes mellitus (HCC) documented in this encounter Additional Health Concerns Assessment Noted Time A fall risk assessment has been complete d for the patient 08/06/2019 11:51 AM EDT documented as of this encounter Care Teams Assorter Relationship Specialty Start Date End Date Alice Rutledge, CAITLYN - PROJECT CONTROLS SCHEDULER [address] [address] PCP - General Family Nurse Practitioner 05/19/19 documented as of this encounter
--- OUTSIDE RECORDS SUMMARY | 2024-12-24 21:10 | XMS_ITS | Encounter Summary ---
Author Organization [facility] Address [address] [place] [address], [address] [place] [address] Care Team Providers Care Crib Clerk Name Role Phone Alice Rutledge APRN - BEER COIL CLEANER Primary Care Prov ider Reason for Visit * Reason Comments Medication Refill Encounter Details Date Type Department Care Team (Late st Contact Info) Description 10/19/2019 Refill [facility] Endocrinology [address] [place] [address] Aria Villarreal MD [address] [place], [place] [phone] Medication Refill Social History Tobacco Use Types [...] than three times a week 08/06/2019 Attends [employer] Not on file 08/05 Active Member [...] have Coronavirus / COVID-19? 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
--- OUTSIDE RECORDS SUMMARY | 2024-12-24 21:10 | XMS_ITS | Clinical Summary ---
Author Organization [facility] Address [address] [place] [address], [address] [place] [address] Care Team Providers Care Police Justice Name Role Phone Aamir Alice Eller APRN - COSMETICS DEMONSTRATOR Primary Care Prov ider Allergies Active Allergy Reactions Criticality Noted Date Comments Rosuvastatin 03/03/2019 Memory Loss Canagliflozin 08/01/2018 Vaginal Blisters Linaclotide Nausea And Vomiting Low 03/03/2019 Metronidazole 03/03/2019 Nystatin 03/03/2019 dizziness Statins 08/01/2018 Memory loss Medications DEXILANT 60 MG CPDR delayed release capsuleIndication s:Gastroesophagea l reflux disease without esophagitis TAKE ONE CAPSULE BY MOUTH DAILY 90 capsule 019 Active rOPINIRole (REQUIP) 2 MG tabletIndications :Restless leg syndrome TAKE ONE TABLET BY MOUTH TWICE A DAY 180 tablet Active atenolol (TENORMIN) 50 MG tabletIndications :Essential hypertension Take 1 tablet by mouth daily 90 tablet 019 Active losartan-hydrochl orothiazide (HYZAAR) 100-25 MG per tabletIndications :Essential hypertension Take 1 tablet by mouth daily 90 tablet 019 Active rivaroxaban 15 & 20 MG Starter Pack Take as directed on package. 1 Package Active flecainide (TAMBOCOR) 50 MG tablet Take 100 mg by mouth 2 times daily Active furosemide (LASIX) 40 MG tablet Take 1 tablet by mouth daily 60 tablet 3 Active potassium chloride (KLOR-CON M) 20 MEQ extended release tablet Take 1 tablet by mouth daily 30 tablet 5 020 Active gabapentin (NEURONTIN) 100 MG capsuleIndication s:Uncontrolled type 2 diabetes mellitus with hyperglycemia ([facility]),Morbid obesity due to excess calories ([facility]),Neuropathy due to type 2 diabetes mellitus ([facility]) Take 1 capsule by mouth nightly for 180 days. Intended supply: 30 days 30 capsule 5 Active Additional Information Patient taking differently: 300 mgOral NIGHTLY, Intended supply: 30 days, Reported on 10/20/2019 Ascorbic Acid (VITAMIN C) 500 MG CAPS Take 500 mg by mouth 2 times daily Active ferrous sulfate 325 (65 Fe) MG tablet Take 325 mg by mouth 2 times daily Active famotidine (PEPCID) 20 MG tablet Take 20 mg by mouth nightly Active fluticasone (FLONASE) 50 MCG/ACT nasal spray 1 spray by Nasal route 2 times daily as needed Active busPIRone (BUSPAR) 30 MG tabletIndications :FCO (generalized anxiety disorder) TAKE ONE TABLET BY MOUTH TWICE A DAY 180 tablet Active Additional Information Patient not taking.Reported on 10/20/2019 Insulin Pen Needle (PEN NEEDLES) 31G X 6 MM MISCIndications:T ype 2 diabetes mellitus with complication, with long-term current use of insulin ([facility]) Inject 1 pen into the skin daily 100 each 1 Active ondansetron (ZOFRAN-ODT) [address] 1 tablet under the tongue daily as needed for Nausea 30 tablet Active vitamin D (CHOLECALCIFEROL) 54258 UNIT CAPSIndications:V itamin D deficiency Take 1 capsule by mouth once a week 12 capsule 1 020 Active metFORMIN (GLUCOPHAGE) 1000 MG tabletIndications :Type 2 diabetes mellitus with complication, with long-term current use of insulin ([facility]) Take 1 tablet by mouth 2 times daily (with meals) 180 tablet Active buPROPion (WELLBUTRIN SR) 150 MG extended release tabletIndications :FCO (generalized anxiety disorder) TAKE ONE TABLET BY MOUTH TWICE A DAY 180 tablet Active Additional Information Patient not taking.Reported on 10/20/2019 insulin glargine (BASAGLAR KWIKPEN) 100 UNIT/ML injection penIndications:Ty pe 2 diabetes mellitus with complication, with long-term current use of insulin ([facility]) Inject 70 Units into the skin nightly 10 pen 1 020 Active Additional Information Patient taking differently: 74 UnitsSubCUTAneous NIGHTLY, Reported on 10/20/2019 TRULICITY 1.5 MG/0.5ML SOPNIndications:T ype 2 diabetes mellitus with vascular disease (HCC),Uncontrolle d type 2 diabetes mellitus with hyperglycemia (HCC),Neuropathy due to type 2 diabetes mellitus (HCC),Dyslipidemi a associated with type 2 diabetes mellitus ([facility]) INJECT 1.5 MG UNDER THE SKIN ONCE WEEKLY 12 pen 1 Active metoclopramide (REGLAN) 10 MG tablet Take 1 tablet by mouth 3 times daily as needed (nausea and pain) 20 tablet Active dicyclomine (BENTYL) 10 MG capsule Take 1 capsule by mouth 4 times daily for 10 doses 10 capsule Active sertraline (ZOLOFT) 100 MG tabletIndications :Essential hypertension TAKE ONE TABLET BY MOUTH DAILY 90 tablet Active dilTIAZem (CARDIZEM CD) 240 MG extended release capsule TAKE ONE CAPSULE BY MOUTH DAILY 30 capsule 1 Active ezetimibe (ZETIA) 10 MG tabletIndications :Uncontrolled type 2 diabetes mellitus with hyperglycemia (HCC),Morbid obesity due to excess calories (HCC),Neuropathy due to type 2 diabetes mellitus ([facility]) TAKE ONE TABLET BY MOUTH DAILY 90 tablet 3 Active fenofibrate (TRIGLIDE) 160 MG tabletIndications :Uncontrolled type 2 diabetes mellitus with hyperglycemia (HCC),Morbid obesity due to excess calories (HCC),Neuropathy due to type 2 diabetes mellitus ([facility]CC) TAKE ONE TABLET BY MOUTH DAILY 90 tablet 3 020 Active Active Problems Patient Care Coordination No te Formatting of this note is d ifferent from the original. Es Mari RN Clinical Performance Nurse [facility] [phone] BPCI-A Patient, will follow for the next 90 days Initiated on: 05/23-08/20/2019 DR ACC: DIAN JOHNSON RN CM Risk Score: 10 Charlson 10 Year Mortality Risk Score: 100% Care Coordination Interventions Referral from Primary Care Provider: Yes Suggested Interventions and Community Resources Diabetes Education: Not Started Fall Risk Prevention: Declined Meals on Wheels: Not Started Social Work: In Process Transportation Support: Declined Problem Noted Date Diagnosed Date Statin intolerance 07/20/2019 Vitamin D deficiency 07/20/2019 TOMAS (obstructive sleep apnea )- sleep specialist Dr. Gutierrez 07/13/2019 Dyslipidemia associated with type 2 diabetes margy litus 06/29/2019 Essential hypertension 06/29/2019 Morbid obesity due to excess calories 06/29/2019 Type 2 diabetes mellitus with vascular disease 0 06/29/2019 Neuropathy due to type 2 diabetes mellitus 06/29 Obesity (BMI 30-39.9) 06/29/2019 Uncontrolled type 2 diabetes mellitus with hyper glycemia 06/26/2019 Chronic diastolic congestive heart failure 06/23 Acute pulmonary edema 06/14/2019 Atrial flutter 06/05/2019 Atrial fibrillation with RVR 05/23/2019 Acute cerebrovascular accident 05/19/2019 FCO (generalized anxiety disorder) 04/21/2019 Coronary artery disease invo lving [place] coronary artery of [place] heart without angina pectoris 03/04/2019 Neuropathy 03/03/2019 Blockage of coronary artery of heart 02/16/2019 Depression 10/06/2018 Type 2 diabetes mellitus wit h complication, with long-term current use of insulin 10/06/2018 Overview (10/06/2018): dx for 5 years-2013? Gastroesophageal reflux disease 10/06/2018 Personal history of colon cancer 10/06/2018 Mixed hyperlipidemia 10/06/2018 Overview (03/03/2019): Patient is supposed to be on Gemfibrozil 600 mg twice daily per [facility] physician group note from last PCP in [place], [place] on 07/24/2018 PAF (paroxysmal atrial fibrillation) History of CVA (cerebrovascular accident) Encounter for monitoring flecainide therapy PFO (patent foramen ovale) SOB (shortness of breath) Resolved Problems Problem Noted Date Diagnosed Date Resolved Date CAP (community acquired pneumonia) 06/16/2019 06/16/2019 CVA (cerebral vascular accident) 05/19/2019 03/22/2020 Type 2 diabetes mellitus wit hout complication, with long-term current use of insulin 01/16/2019 01/16/2019 Hypertension 10/17/2018 03/22/2020 Chest pain 08/01/2018 08/04/2018 Immunizations Immunization Administration Dates Next Due Hep B, ENGERIX-B, (age 20y+), IM, 1mL 07/28/2019 Influenza, FLUAD, (age 65 y+), IM, Trivalent PF, 0.5mL 02/06/2019 Pneumococcal, PPSV23, PNEUMO VAX 23, (age 2y+), SC/IM, 0.5mL 02/24/2019 Zoster Recombinant (Shingrix) 05/16/2019, 019 Family History Medical History Relation Name Comments Alzheimer's Disease Father Stroke Mother Diabetes Sister Relation Name Status Comments Father Mother Sister Social History Tobacco Use Types Packs/Day Years Used Date Smoking Tobacco: Former Cigarettes 0.5 10.9 0 05/2008 - 04/2019 Smokeless Tobacco: Never Tobacco Cessation:Counseling Given: Yes Comments:roughly 3 months, since 06/2018 Alcohol Use Standard Drinks/Week Comments Never 0 (1 standard drink = 0.6 oz pur e alcohol) Social Connection and Isolat ion Panel [NHANES] Answer Date Recorded Frequency of Communication w ith Friends and Family More than three times a week 08/06/2019 Frequency of Social Gatherin gs with Friends and Family More than three times a week 08/06/2019 Attends [employer]ast[employer] Services Not on file 08/05 Active Member [...] on file Sexual Orientation Not on file Last Filed Vital Signs Vital Sign Reading Time Taken Comments Blood Pressure 121/89 10/27/2019 7:31 PM EDT Pulse 66 10/27/2019 7:31 PM EDT Temperature 36.7 C (98.1 F) 10/27/2019 7:31 PM EDT Respiratory Rate 18 10/27/2019 7:31 PM EDT Oxygen Saturation 97% 10/27/2019 7:31 PM EDT Inhaled Oxygen Concentration - - Weight 100.7 kg (222 lb 0.1 oz) 10/27/2019 5:23 PM EDT Height 165.1 cm (5' 5 ) 08/03/2019 1:34 PM EDT Body Mass Index 36.94 08/03/2019 1:34 PM EDT Plan of Treatment Not on file Insurance MEDICARE [facility] [place] MEDICAID Advance Directives * Full Code (Latest Code Status on File) Date Activated Date Inactivated Comments 06/15/2019 4:47 PM 06/17/2019 5:54 PM * Full Code Date Activated Date Inactivated Comments 06/15/2019 12:07 AM 06/15/2019 4:46 PM * Full Code Date Activated Date Inactivated Comments 05/23/2019 4:57 AM 05/23/2019 2:56 PM * Full Code Date Activated Date Inactivated Comments 05/19/2019 11:39 PM 05/21/2019 8:07 PM * Full Code Date Activated Date Inactivated Comments 08/01/2018 11:02 PM 08/04/2018 6:42 PM Care Teams Police Justice Relationship Specialty Start Date End Date Alice Rutledge, PUBLICATIONS SALES REPRESENTATIVE - COSMETICS DEMONSTRATOR [address] [place] [address] PCP - General Family Nurse Practitioner 05/19/19
--- OUTSIDE RECORDS SUMMARY | 2024-12-24 21:10 | XMS_ITS | Clinical Summary ---
Author Organization [facility] Address [address] [place] [address] Care Team Providers Care Photographic Lithographer Name Role Phone Damaso Radha CAITLYN Primary Care Provider [phone] Social History Tobacco Use Types Packs/Day Years Used Date Smoking Tobacco: Never Assessed Comments Unknown Sex and Gender Information Value Date Recorded Sex Assigned at Not on file Legal Sex Female 7:11 AM EDT Gender Identity Not on file Sexual Orientation Not on file Plan of Treatment Health Maintenance Due Date Last Done Comments DIABETIC EYE EXAM 1963 DIABETIC FOOT EXAM 1963 MAMMOGRAM 1993 COLON CANCER SCREENING 5 YEA R SIGMOIDOSCOPY [address] COLONOGRAPHY 1998 FECAL OCCULT BLOOD TEST 1998 FIT Testing (1 year) 1998 ZOSTER VACCINE (2 of 2) 07/11/2019 05/16/2019, 03/13 URINE MICROALBUMIN-CREATININ E RATIO (uACR) 12/03/2019 12/02/2018 Pneumococcal Vaccine 50+ (2 of 2 - PCV) 02/25/2020 02/24/2019, 02/14/2016 DXA SCAN 02/13/2021 02/13/2019 TDAP/TD VACCINES (2 - Td or Tdap) 06/18/2022 013 COVID-19 Vaccine ( - 2023-2 5 season) 2024 ANNUAL WELLNESS VISIT 09/01/2024 02/06/2019 HEMOGLOBIN A1C 09/16/2024 03/19/2024, 02/19, 05/20/2019, Additional history exists COLOGUARD 01/30/2025 01/30/2022 COLORECTAL CANCER SCREENING 01/30/2025 INFLUENZA VACCINE 02/17/2025 06/11/2023, , 02/06/2019, Additional history exists HEPATITIS C SCREENING Completed 03/19/2024, 019 Insurance [facility] MEDICARE ADVANTAGE SNP PPO Care Teams Photographic Lithographer Relationship Specialty Start Date End Date Radha Petit APRN [address] [place] [address] PCP - General Family Medicine 08/18/24
--- OUTSIDE RECORDS SUMMARY | 2024-12-24 21:10 | XMS_ITS | Referral Summary ---
Author Organization [facility] Address [address] [place] [place] [address] Care Team Providers Care Contract Programmer Name Role Phone Pcp, Pending Only MD Primary Care Provider Kin Urszula DO Unavailable [phone] Social History Tobacco Use Types Packs/Day Years Used Date Smoking Tobacco: Never Assessed Comments Unknown Sex and Gender Information Value Date Recorded Sex Assigned at Not on file Legal Sex Female 5:46 AM EDT Gender Identity Not on file Sexual Orientation Not on file Plan of Treatment Not on file Procedures Procedure Name Priority Date/Time Associated Diagnosis Comments *MAMMOGRAM SCREENING Routine 09/12/2004 7:53 AM EDT from Last 3 Months or Most Recently Relevant to Health Maintenance Results * *MAMMOGRAM SCREENING (09/12/2004 7:53 AM EDT) Anatomical Region Laterality Modality Radiographic Frannie ging 09/12/2004 7:53 AM EDT Narrative 09/15/2004 5:18 PM EDT SCREENING MAMMOGRAM WITH CAD: COMPARISON: 08/22/03 TISSUE DENSITY: There are scattered fibroglandular densities that could obscure a lesion on mammography. No significant new findings since 08/22/03. CAD detected no significant findings. IMPRESSION: No radiographic evidence of malignancy. RECOMMENDATION: Annual screening mammogram. ACR 1 - Negative Procedure Note Kelsy Casillas MD - 11/24/2011 SCREENING MAMMOGRAM WITH CAD: COMPARISON: 08/22/03 TISSUE DENSITY: There are scattered fibroglandular densities that couldobscure a lesion on mammography. No significant new findings since 08/22/03. CAD detected no significant findings. IMPRESSION: No radiographic evidence of malignancy. RECOMMENDATION: Annual screening mammogram. ACR 1 - Negative Urszula Sanderson DO HISTORICAL RADIANT Final Result from Last 3 Months or Most Recently Relevant to Health Maintenance Insurance MEDICARE on file [facility] MEDICARE REPLACEMENT Care Teams Contract Programmer Relationship Specialty Start Date End Date Pcp, Pending Only, [place], [place] [phone] PCP - General Internal Medicine 08/17/19 [place] [address] [place] [address] 08/17/19
--- OUTSIDE RECORDS SUMMARY | 2024-12-24 21:10 | XMS_ITS | Encounter Summary ---
Author Organization [facility] Address [address] [place] [address], [address] [place] [address] Care Team Providers Care Railroad Operating Engineer Name Role Phone Alice Rutledge APRN, CNP Primary Care Prov ider Encounter Details Date Type Department Care Team (Late st Contact Info) Description 05/24/2019 FollowUp Telephone Encounter [facility] [address] [place] [address] Tracy Jara Social History Tobacco Use Types [...] documented as of this encounter Care Teams Railroad Operating Engineer Relationship Specialty Start Date End Date Alice Rutledge APRN - CNP [address] [address] PCP - General Family Nurse Practitioner 05/19/19 documented as of this encounter
--- OUTSIDE RECORDS SUMMARY | 2024-12-24 21:10 | XMS_ITS | Clinical Summary ---
Author Organization Healthcare Address [address] [place] [address] Care Team Providers Care Transaction Advisory Services Manager Name Role Phone Reva Lou JAMES Primary Care Provider [phone] Allergies Active Allergy Reactions Criticality Noted Date Comments Canagliflozin Other - please docum ent in the comment field Low 08/01/2018 Vaginal Blisters Linaclotide Nausea And Vomiting Low 03/03/2019 Statins Other - please docum ent in the comment field Low 08/01/2018 Memory loss Medications flecainide (Tambocor) 100 MG tablet Take 1 tablet (100 mg) by mouth 2 (two) times a day. 12/16/2020 Active furosemide (Lasix) 40 MG tablet Take 1 tablet (40 mg) by mouth 1 (one) time each day. 12/19/2020 Active losartan (Cozaar) 50 MG tablet Take 1 tablet (50 mg) by mouth every night. 11/24/2020 Active sertraline (Zoloft) 100 MG tablet Take 1 tablet (100 mg) by mouth every night. 12/19/2020 Active [address] capsule Take 1 capsule (60 mg) by mouth 1 (one) time each day. 12/28/2020 Active famotidine (Pepcid) 20 MG tablet Take 1 tablet (20 mg) by mouth every night. 12/08/2020 Active clopidogrel (Plavix) 75 MG tablet Take 1 tablet (75 mg) by mouth 1 (one) time each day. 12/22/2020 Active Xarelto 20 MG tablet Take 1 tablet (20 mg) by mouth 1 (one) time each day. 12/28/2020 Active ergocalciferol (Vitamin D-2) 1.25 MG (01280 UT) capsule Take 1 capsule (50,000 Units) by mouth 1 (one) time per week. Active cholecalciferol (D3 High Potency) 50 MCG (2000 UT) capsule Take 1 capsule (2,000 Units) by mouth 1 (one) time each day. Active dapagliflozin (Farxiga) 10 MG tablet Take 1 tablet (10 mg) by mouth 1 (one) time each day. Active Memantine HCl ER 7 MG capsule sustained-relea se 24 hr Take 7 mg by mouth 1 (one) time each day. Active montelukast (Singulair) 10 MG tablet Take 1 tablet (10 mg) by mouth 1 (one) time each day. Active DULoxetine (Cymbalta) [address] capsule Take 1 capsule (30 mg) by mouth 1 (one) time each day. Do not crush or chew. Active ARIPiprazole (Abilify) 5 MG tablet Take 1 tablet (5 mg) by mouth 1 (one) time each day. Active tirzepatide (Mounjaro) 10 MG/0.5ML solution pen-injector solution pen-injector Inject 0.5 mL (10 mg) under the skin 1 (one) time per week. Active insulin degludec (Tresiba FlexTouch) 100 UNIT/ML injection pen Inject 75 Units under the skin every night. Active Insulin Lispro (Admelog, HumaLOG) 100 UNIT/ML injection vial Inject 0.04 mL (4 Units) under the skin 3 (three) times a day with meals. Given if BG >200 Active metoprolol succinate XL (Toprol-XL) 25 MG 24 hr tablet Take 1 tablet (25 mg) by mouth every night. Do not crush or chew. Active Active Problems Problem Noted Date Diagnosed Date Neurological deficit present 03/20/2024 Severe obesity (BMI 35.0-39.9) with comorbidity 03/19/2024 Central retinal artery occlusion of right eye Family History Medical History Relation Name Comments Alzheimer's disease Father Stroke Other Relation Name Status Comments Father Other Social History Tobacco Use Types Packs/Day Years Used Date Smoking Tobacco: Never Smokeless Tobacco: Never Humiliation, Afraid, Rape, and Kick questionnair e Answer Date Recorded Within the last year, have y ou been afraid of your partner or ex-partner? No 03/20/2024 Within the last year, have y ou been humiliated or emotionally abused in other ways by your partner or ex-partner? No Within the last year, have y ou been kicked, hit, slapped, or otherwise physically hurt by your partner or ex-partner? No 03/20/2024 Within the last year, have y ou been raped or forced to have any kind of sexual activity by your partner or ex-partner? No 03/20/2024 PHQ-2 Answer Date Recorded Patient Health Questionnaire-2 Score 0 02/01/2021 Hunger Vital Sign Answer Date Recorded Within the past 12 months, y ou worried that your food would run out before you got the money to buy more. Never true 03/20/20 24 Within the past 12 months, t he food you bought just didn't last and you didn't have money to get more. Never true 03/20/2024 PRAPARE - Transportation Answer Date Re corded In the past 12 months, has l ack of transportation kept you from medical appointments or from getting medications? No 05/2023 In the past 12 months, has l ack of transportation kept you from meetings, work, or from getting things needed for daily living? No 03/20/2024 Housing Stability Vital Sign Answer Dipak e Recorded In the last 12 months, was t here a time when you were not able to pay the mortgage or rent on time? No 03/20/2024 In the last 12 months, how many places have you lived? 1 03/20/2024 In the last 12 months, was t here a time when you did not have a steady place to sleep or slept in a senior living (including now)? No 03/20/2024 Utilities Answer Date Recorded In the past 12 months has th e electric, gas, oil, or water company threatened to shut off services in your home? No 03/20/2024 Comments Unknown Sex and Gender Information Value Date Recorded Sex Assigned at Not on file Legal Sex Female 6:17 PM EDT Gender Identity Not on file Sexual Orientation Not on file Last Filed Vital Signs Vital Sign Reading Time Taken Comments Blood Pressure 143/74 03/20/2024 11:18 AM EDT Pulse 75 03/20/2024 11:18 AM EDT Temperature 36.9 C (98.5 F) 03/20/2024 11:17 AM EDT Respiratory Rate 12 03/20/2024 11:18 AM EDT Oxygen Saturation 96% 03/20/2024 11:19 AM EDT Inhaled Oxygen Concentration - - Weight 105 kg (230 lb 9.6 oz) 03/20/2024 6:00 AM EDT Height 165.1 cm (5' 5 ) 03/19/2024 1:20 PM EDT Body Mass Index 38.37 03/19/2024 1:20 PM EDT Plan of Treatment Health Maintenance Due Date Last Done Comments [facility]-Bone Density Scan 1955 [facility]-Infant/Child/Adol SDOH Screenings 1955 Diabetes: Dental Exam 1963 CT Colonography 1998 Colonoscopy 1998 FIT-DNA 1998 FIT 1998 FOBT 1998 Sigmoidoscopy 1998 [facility]-Colorectal Cancer Screening 1998 [facility]-Breast Cancer Screening 2003 [facility]-RSV Vaccine: 60+ Years or (1 - Risk 60-74 years 1-dose series) 2013 [facility]-Medicare Annual Wellness (AWV) 02/07/2020 02/06/2019 [facility]-Pneumococcal Vaccine: 50+ Years (2 of 2 - PCV) 02/25/2020 02/24/2019, 02/14/2016 [facility]-Depression Screening 02/01/2022 02/01/2021 [facility]-DTaP,Tdap,and Td Vaccines (2 - Td or Tdap) 06/18/2022 06/18/2012 [id number] Vaccine ( - season) 2024 [facility]-Diabetes: Hemoglobin A1C 09/16/2024 03/19/2024 [facility]- SDOH Screenings 09/17/2024 [facility]-Adult SDOH Screenings 09/17/2024 03/20/2024 [facility]-Influenza Vaccine (#1) 01/18/202506/11, 04/03/2022, 02/06/2019, Additional history exists [facility]-Zoster Vaccines Completed 05/16/2019, 9 [facility]-Hepatitis C Screening Completed 03/19/2024 [facility]-Obesity Intervention Completed 03/19/2024 HPV Vaccines Aged Out No longer eligi ble based on patient's age to complete this topic [facility]-HIB Vaccines Aged Out No longer e ligible based on patient's age to complete this topic [facility]-Hepatitis A Vaccines Aged Out No longer eligible based on patient's age to complete this topic [facility]-IPV Vaccines Aged Out No longer e ligible based on patient's age to complete this topic [facility]-Rotavirus Vaccines Aged Out No lo nger eligible based on patient's age to complete this topic Procedures Procedure Name Priority Date/Time Associated Diagnosis Comments HEMOGLOBIN A1C Routine 03/19/2024 3:37 PM EDT HEPATITIS C ANTIBODY - ED W/REFLEX TO HCV QUANT PCR STAT 03/19/2024 12:44 PM EDT from Last 3 Months or Most Recently Relevant to Health Maintenance Results * (ABNORMAL) Hemoglobin A1c (03/19/2024 3:37 PM EDT) Hemoglobin A1c 6.6(H) <5.7 % 03/19/2024 5:40 PM EDT [facility] Blood Venous blood specimen / Unknown Venipuncture / Unknown 03/19/2024 3:37 PM EDT 03/19/2024 3:58 PM EDT Narrative [facility] - 03/19/2024 5:40 PM EDT HA1C Interpretive Data: Diagnosis of Diabetes: Diabetic > or = 6.5% Pre-diabetic 5.7 to 6.4% Non-diabetic < or = 5.6% Glycemic Targets for Type I and Type II Diabetics: Non- Adults <7.0% Adults <6.0% Children and Adolescents <7.5% Source: [place] [employer]. Standards of medical care in diabetes,2017. Diabetes Care.2017:40 (suppl 1):S1-S135. HbA1c assay performed by an ion-exchange chromatography method that is certified traceable to the DCCT. Santhosh Swenson MD LAB BLOOD ORDERABLES Final R esult [facility] [address] [place] [address] * Hepatitis C Antibody - ED (03/19/2024 12:44 PM EDT) Hepatitis C Antibody Negative Negative 03/19/2024 2:20 PM EDT [facility] Blood Venous blood specimen / Unknown Venipuncture / Unknown 03/19/2024 12:44 PM EDT 03/19/2024 1:29 PM EDT us Zaki Murguia MD LAB BLOOD ORDERABLES Final Resul t Performing Organization Address City/[facility] Co de Phone Number [facility] [address] [place] [address] from Last 3 Months or Most Recently Relevant to Health Maintenance Insurance [facility] MEDICARE [place] [employer] [place] Advance Directives * Full Code (Latest Code Status on File) Date Activated Date Inactivated Comments 03/19/2024 1:31 PM 03/20/2024 8:13 PM Question Answer Comments Patient has decision-making capacity? Yes Care Teams Transaction Advisory Services Manager Relationship Specialty Start Date End Date Reva Lou PA [address] [place] [address] PCP - General 09/30/20
--- OUTSIDE RECORDS SUMMARY | 2024-12-24 21:10 | XMS_ITS | Encounter Summary ---
Author Organization [facility] Address [address] [place] [address], [address] [place] [address] Care Team Providers Care Advertising Associate Name Role Phone Alice Rutledge APRN - LEXY Primary Care Prov ider Reason for Visit * Reason Onset Date Comments Medication Refill 07/27/2019 Encounter Details Date Type Department Care Team (Late st Contact Info) Description 07/27/2019 Refill [facility] [address] [place] [address] Alice Rutledge, CAITLYN - STEEL ANALYST [address] [place] [address] Medication Refill Social History Tobacco Use Types [...] as of this encounter Visit Diagnoses Diagnosis FCO (generalized anxiety disorder) Generalized anxiety disorder Type 2 diabetes mellitus with complication, with long-term current use of insulin (HCC) documented in this encounter Additional Health Concerns Assessment Noted Time A fall risk assessment has been complete d for the patient 02/06/2019 9:37 AM EDT documented as of this encounter Care Teams Advertising Associate Relationship Specialty Start Date End Date Alice Rutledge, FAMILY CENTERED SPECIALIST - STEEL ANALYST [address] [place] [address] PCP - General Family Nurse Practitioner 05/19/19 documented as of this encounter
--- OUTSIDE RECORDS SUMMARY | 2024-12-24 21:10 | XMS_ITS | Encounter Summary ---
Author Organization [facility] Address [address] [place] [address] Care Team Providers Care Cake Icer Name Role Phone Nonstaff, Moise LOCKWOOD Primary Care Provider [phone] Alice Rutledge Primary Care Provider Michelle Solomon MD Unavailable [phone] Michelet Gutierrez MD Unavailable [phone] Gianni Jara MD Unavailable [phone] Christine Blank NP Unavailable Unavailable Encounter Details Date Type Department Care Team (Late st Contact Info) Description 05/27/2019 Abstract [facility] Physicians - Heart & Vascular, [address] [place] [address] Gianni Jara MD [address] [address] Social History Tobacco Use Types Packs/Day Years [...] Diagnoses Not on filedocumented in this encounter Care Teams Cake Icer Relationship Specialty Start Date End Date Moise Garcia MD PCP - General 06/05/19 06/22/19 Alice Rutledge PCP - General Nurse Practitioner 06/23/19 Michelle Solomon MD [address] [place] [address] Medical Oncology 07/15/19 Michelet Gutierrez MD [address] [place] [address] Pulmonary Disease 07/15/19 Gianni Jara MD [address] [facility] [address] [place] [id number] Cardiology 07/15/19 Christine Blank NP [address] [facility] [address] [place] [address] Nurse Practitioner Sleep Medicine 07/15/19 documented as of this encounter
--- OUTSIDE RECORDS SUMMARY | 2024-12-24 21:10 | XMS_ITS | Encounter Summary ---
Author Organization Healthcare Address [address] [place] [address] Care Team Providers Care Facing Slitter Name Role Phone Reva Lou Primary Care Provider Encounter Details Date Type Department Care Team (Late st Contact Info) Description 12/06/2020 Community [facility] [address] [place] [address] Reva Lou PA [address] [place] [address] Lupus (CMS/HCC) (Primary Dx) Social History Tobacco Use Types [...] as of this encounter Visit Diagnoses Diagnosis Lupus- Primary Systemic lupus erythematosus documented in this encounter Care Teams Facing Slitter Relationship Specialty Start Date End Date Reva Lou PA [address] [place] [address] PCP - General 09/30/20 documented as of this encounter
--- OUTSIDE RECORDS SUMMARY | 2024-12-24 21:10 | XMS_ITS | Clinical Summary ---
Author Organization [facility] Address [address] [place] [address] Care Team Providers Care Student Ambassador Name Role Phone Alice Rutledge Primary Care Provider Michelle Solomon MD Unavailable [phone] Michelet Gutierrez MD Unavailable [phone] Gianni Jara MD Unavailable [phone] Christine Blank NP Unavailable Unavailable Allergies Active Allergy Reactions Criticality Noted Date Comments Canagliflozin 08/01/2018 Other reaction(s): Unknown Linaclotide 03/03/2019 Metronidazole 03/03/2019 Nystatin 03/03/2019 dizziness Ezshhml-Ell-Yhy Reductase Inhibitors 08/01/2018 Other reaction(s): Unknown Medications diltiazem (CARDIZEM CD) 240 mg capsule Take 240 mg by mouth. 05/23/19 20 Active atenoloL (TENORMIN) 50 mg tablet Take 50 mg by mouth. 01/17/20 19 Active buPROPion (WELLBUTRIN) 150 mg SR tablet TAKE ONE TABLET BY MOUTH TWICE A DAY 12/03/19 19 Active busPIRone (BUSPAR) 30 mg tablet TAKE ONE TABLET BY MOUTH TWICE A DAY 12/03/19 19 Active Dexlansoprazole (Dexilant) 60 mg Cap, Delayed Rel., Multiphasic 60 mg. 12/03/19 19 Active losartan-hydrochlo rothiazide (HYZAAR) 100-25 mg Tablet Take 1 Tab by mouth. 12/03/19 19 Active metFORMIN (GLUCOPHAGE) 1,000 mg tablet Take 1,000 mg by mouth. 12/03/19 Active ondansetron (ZOFRAN-ODT) [address] 1 Tab under tongue. Active rOPINIRole (REQUIP) 2 mg Tablet TAKE ONE TABLET BY MOUTH TWICE A DAY 12/03/19 Active sertraline (ZOLOFT) 100 mg tablet TAKE ONE TABLET BY MOUTH DAILY 12/03/19 Active tiZANidine (ZANAFLEX) 2 mg tablet 2 mg. Active Basaglar KwikPen U-100 Insulin 100 unit/mL (3 mL) Solostar INPN 05/25/19 Active furosemide (LASIX) 40 mg tablet Take 40 mg by mouth daily. Active potassium chloride (KLOR-CON M20) 20 mEq SR tablet Take 20 mEq by mouth daily. Active flecainide (TAMBOCOR) 100 mg tablet Take 1 Tab (100 mg total) by mouth every 12 hours. 180 Tab 3 06/23/19 20 Active ezetimibe (ZETIA) 10 mg Tablet Take 10 mg by mouth daily. Active Fenofibrate 160 mg Tablet Take 160 mg by mouth daily. Active dulaglutide (Trulicity) 0.75 mg/0.5 mL Pen Injector 0.75 mg by Subcutaneous route every 7 days (once weekly). Active gabapentin (NEURONTIN) 300 mg capsule Take 1 Cap (300 mg total) by mouth every evening. 30 Cap 6 06/29/19 20 Active fluticasone propionate (FLONASE) 50 mcg/actuation nasal spray 1 spray in each nostril daily. 1 Bottle 5 07/13/19 20 Active famotidine (PEPCID) 20 mg tablet Take 20 mg by mouth daily. Active ascorbic acid, vitamin C, (VITAMIN C) 500 mg tablet Take 1 Tab (500 mg total) by mouth 2 times daily. Take with Iron Pill 60 Tab 07/31/19 20 Active ferrous sulfate (65 MG IRON) 325 mg (65 mg iron) tablet Take 1 Tab (325 mg total) by mouth 2 times daily. 60 Tab 07/31/19 20 Active rivaroxaban (Xarelto) 20 mg TabletIndications: Atrial flutter, unspecified type (CMS/HCC) Take 1 Tablet (20 mg total) by mouth daily. 30 Tablet 08/08/19 22 Active Active Problems Problem Noted Date Diagnosed Date Iron deficiency 07/15/2019 TOMAS (obstructive sleep apnea) 07/13/2019 Anxiety and depression 06/29/2019 Obesity (BMI 30-39.9) 06/29/2019 Acute on chronic diastolic heart failure 020 Atrial flutter 06/05/2019 Coronary artery disease invo lving rincon coronary artery of rincon heart without angina pectoris 06/05/2019 Essential hypertension 06/05/2019 Type 2 diabetes mellitus wit h circulatory disorder, without long-term current use of insulin 06/05/2019 Other hyperlipidemia 06/05/2019 Cerebrovascular accident (CV A) due to embolism of right middle cerebral artery 06/05/2019 PFO (patent foramen ovale) 06/05/2019 Family History Medical History Relation Name Comments Heart Attack Mother Relation Name Status Comments Father alzheimer alzheimer Mother (Age 67) [place] Social History Tobacco Use Types Packs/Day Years Used Date Smoking Tobacco: Former Cigarettes Q uit: 2019 Smokeless Tobacco: Never Alcohol Use Standard Drinks/Week [...] Sign Reading Time Taken Comments Blood Pressure 126/74 07/17/2019 11:08 AM EST Pulse 74 07/17/2019 11:08 AM EST Temperature 36.7 C (98.1 F) 07/15/2019 3:01 PM EST Respiratory Rate 18 07/15/2019 3:01 PM EST Oxygen Saturation 95% 07/15/2019 3:01 PM EST Inhaled Oxygen Concentration - - Weight 103.9 kg (229 lb) 09/30/2019 3:36 PM EDT Height 165.1 cm (5' 5 ) 09/30/2019 3:36 PM EDT Body Mass Index 38.11 09/30/2019 3:36 PM EDT Plan of Treatment Health Maintenance Due Date Last Done Comments Cologuard 1955 Colonoscopy 1955 Colorectal Cancer Screening 1955 Diabetes Mellitus Eye Exam (Yearly) 1953 Diabetes Mellitus Foot Care (Yearly) 1953 Diabetes Mellitus Microalbum in (Yearly) 1953 FIT 1953 Tetanus Vaccination (Every 10 Years) 1971 Pneumococcal Vaccine: 50+ Ye ars (1 of 1 - PCV) 2003 RSV Vaccines (1 - Risk 60-74 years 1-dose series) 2013 Fall Risk Assessment 2018 Renal Monitoring 07/13/2020 07/13/2019, , 05/26/2019 Breast Cancer Screening 07/24/2020 07/24/2018 COVID-19 Vaccine (1 - 2023-2 5 season) 2024 Osteoporosis Screening 02/14/2024 02/13/2019, 2018 Advance Care Planning 05/20/2024 Depression Screening 05/20/2024 Diabetes A1c Monitoring 09/16/2024 03/19/2024 Influenza Vaccination (#1) 2025 Lipid Monitoring 03/20/2025 03/20/2024 Zoster-RZV(Shingrix) Completed 05/16/2019, 03/13/20 Hepatitis C Virus (HCV) Screening Completed 03/19/2024, 03/19/2024, 10/14/2018 Lipid Screening Discontinued 03/20/2024 Procedures Procedure Name Priority Date/Time Associated Diagnosis Comments COMPREHENSIVE METABOLIC PANEL Routine 07/13/2019 11:32 AM EST Flank pain from Last 3 Months or Most Recently Relevant to Health Maintenance Results * (ABNORMAL) COMPREHENSIVE METABOLIC PANEL (07/13/2019 11:32 AM EST) Sodium 141 135 - 146 mmol/L [facility] Potassium 4.1 3.5 - 5.1 mmol/L [facility] Chloride 99 98 - 110 mmol/L [facility] CO2 28 22 - 29 mmol/L [facility] Anion Gap 14(H) 5 - 13 mmol/L [facility] Comment:Anion gap calculatio n does not include potassium (K+) value. BUN 22 7 - 25 mg/dL [facility] Creatinine 0.96 0.50 - 1.20 mg/dL [facility] Glucose 204(H) 70 - 99 mg/dL [facility] GFR MDRD Af Amer 70 See Note [facility] Comment: GFR is estimated using Creatinine, age, gender and race. Patient's values should be interpreted as a trend. Between 30 and 90 ml/min/1.73m2, clinical correlation is needed. For additional information: www.[email or web address].org Calcium 9.4 8.4 - 10.5 mg/dL [facility] GFR MDRD Non Af Amer 58 See Note [facility] Comment: GFR is estimated using Creatinine, age, gender and race. Patient's values should be interpreted as a trend. Between 30 and 90 ml/min/1.73m2, clinical correlation is needed. For additional information: www.[email or web address].org Total Bilirubin 0.2 0.2 - 1.2 mg/dL [facility] AST 16 0 - 30 U/L [facility] ALT 17 0 - 40 U/L [facility] Alkaline Phosphatase 110 33 - 140 U/L [facility] Total Protein 7.2 6.0 - 8.0 g/dL [facility] Albumin 4.0 3.5 - 5.0 g/dL [facility] Globulin 3.2 2.0 - 3.7 g/dL [facility] Albumin/Globulin Ratio 1.3 1.0 - 2.1 [facility] BUN/Creatinine Ratio 23 [facility] Serum (Serum) 07/13/2019 11: 32 AM EST 07/13/2019 4:35 PM EST Marguerite Bernal CHEMISTRY ORDERABLES Final Resul t [facility] [address] from Last 3 Months or Most Recently Relevant to Health Maintenance Insurance [facility] DUAL Member Subscriber Plan / Payer (Ef fective 2019-Present) Name:Marybel Shin Relation to Subscriber:Self Name:Marybel Shin Payer ID:[id number] (NAIC) Group ID:Not on file Type:HMO Address: [place] [id number] [place] [employer] [facility] DUAL [place] [employer] [address] [facility] DUAL Member Subscriber Plan / Payer (Ef fective 2019-Present) Name:Marybel Shin Relation to Subscriber:Self Name:Marybel Shin Payer ID:[id number] (NAIC) Group ID:Not on file Type:O Address: [place] [id number] [employer] [employer] [place] [employer] [employer] Care Teams Student Ambassador Relationship Specialty Start Date End Date Alice Rutledge PCP - General Nurse Practitioner 06/23/19 Michelle Solomon MD [address] [place] [address] Medical Oncology 07/15/19 Michelet Gutierrez MD [address] [place] [address] Pulmonary Disease 07/15/19 Gianni Jara MD [address] [facility] [address] [place] [address] Cardiology 07/15/19 Christine Blank NP [address] [facility] [address] [place] [address] Nurse Practitioner Sleep Medicine 07/15/19
--- OUTSIDE RECORDS SUMMARY | 2024-12-24 21:10 | XMS_ITS | Clinical Summary ---
Author Organization [facility] Address [address] [facility] [address] Care Team Providers Care Police Matron Name Role Phone Pcp, Pending Only MD Primary Care Provider [phone] Urszula Sanderson DO Unavailable [phone] Social History Tobacco Use Types Packs/Day Years Used Date Smoking Tobacco: Never Assessed Comments Unknown Sex and Gender Information Value Date Recorded Sex Assigned at Not on file Legal Sex Female 5:46 AM EDT Gender Identity Not on file Sexual Orientation Not on file Plan of Treatment Health Maintenance Due Date Last Done Comments Hepatitis C Screening 1955 DTap,Tdap,and Td (1 - Tdap) 1964 Colonoscopy 1998 Mammogram Screening 09/12/2005 09/12/2004, 09/13/2003, 11/14/2000 DEXA Scan 2018 Pneumococcal 50+ (2 of 2 - PCV) 02/25/2020 02/24/2019 Influenza Vaccine (#1) 2025 RSV Vaccine (60+ or ) (1 - 1-dose 75+ series) 2028 Shingrix Completed 05/16/2019, 03/13/2019 HPV Aged Out No longer eligi ble based on patient's age to complete this topic Meningococcal conjugate naun nt 4 (MCV4) Aged Out No longer eligible b ased on patient's age to complete this topic RSV Immunization (<20 months) Aged Out No longer eligible based on [...] to Health Maintenance Insurance MEDICARE on file [facility] MEDIC[facility] REPLACEMENT Care Teams Police Matron Relationship Specialty Start Date End Date Pcp, Pending Only, [place], [place] [id number] PCP - General Internal Medicine 08/17/19 [place] [address] [place] [address] 08/17/19
== END 2024-12-24 23:59 | disposition home or self-care (01) ==
LOC: LAB.DROPOF 21:08
PROVIDERS: PCP Family Medicine; Visit Provider Family Medicine
DX: E11.42 Type 2 diabetes mellitus with diabetic polyneuropathy (principal)
CPT/HCPCS: 82043; 82570

== ENCOUNTER 2025-01-18 00:53 | Inpatient (IN) | payer MEDICARE, MEDICAID, SELFPAY ==
[2025-01-18] VITALS (19 sets, daily range): BP systolic 78–124; BP diastolic 46–67; PULSE 85–124; RESP 16–23; TEMP 36.6–39.3; O2SAT 90–97; BMI 32.8; BMI 33.9; BMI 33.8
--- NOTE | 2025-01-18 00:54 | XR_ITS ---
PROCEDURE INFORMATION: Exam: XR Chest Exam date and time: 01/18/2025 1:22 AM Age: 69 years old Clinical indication: Fever and other: Hypoxia; Additional info: Fever, hypoxia TECHNIQUE: Imaging protocol: Radiologic exam of the chest. Views: 1 view. COMPARISON: CT ANGIO CHEST PE PROTOCOL 11/30/2023 3:59 PM FINDINGS: Lungs: Right lower lobe infiltrates. Right diaphragm eventration which may be on the basis of volume loss. Pleural spaces: Small right pleural effusion. Heart/Mediastinum: Small hiatal hernia. Cardiomegaly. Vasculature: Atherosclerotic disease of the aortic arch. Bones/joints: Unremarkable. IMPRESSION: Findings suggestive of right lower lobe pneumonia with small parapneumonic effusion. Correlate clinically.
--- NOTE | 2025-01-18 00:56 | HMH.EDGENADL ---
Discharge Plan Disposition Patient Disposition: Admitted Prescriptions Prescriptions: No Action dexlansoprazole 60 mg capsule,biphase delayed releas 60 mg PO DAILY Patient Comments: TAKE 1 CAPSULE BY MOUTH ONCE DAILY dapagliflozin propanediol [Farxiga] 10 mg tablet 10 mg PO DAILY Qty: 90 2RF insulin lispro 100 unit/mL insulin pen 1 sliding scale dose SQ QAC Patient Comments: 125-150 6 units 150-200 8 units over 200 10 units ergocalciferol (vitamin D2) 1,250 mcg (50,000 unit) capsule 1,250 mcg PO WEEKLY Qty: 14 3RF Mounjaro 10 mg/0.5 mL pen injector See Rx Instructions .ROUTE .COMPLEX Qty: 4 5RF Dose Instruction: INJECT 1 SYRINGE SUBCUTANEOUSLY ONCE A WEEK Rx Instructions: INJECT 1 SYRINGE SUBCUTANEOUSLY ONCE A WEEK memantine 7 mg capsule,sprinkle,ER 24hr 7 mg PO DAILY Qty: 90 1RF losartan 50 mg tablet 50 mg PO DAILY Qty: 90 1RF (DME) Dexcom G7 Sensor Device See Rx Instructions .Route Qty: 14 3RF Rx Instructions: As directed montelukast [Singulair] 10 mg tablet 10 mg PO HS Qty: 90 3RF cholecalciferol (vitamin D3) 50 mcg (2,000 unit) capsule 50 mcg PO DAILY Qty: 90 3RF clopidogrel 75 mg tablet 75 mg PO DAILY Qty: 90 2RF metoprolol succinate 25 mg tablet extended release 24 hr 25 mg PO DAILY Qty: 30 3RF Repatha SureClick 140 mg/mL pen injector See Rx Instructions .ROUTE .COMPLEX Qty: 6 2RF Dose Instruction: INJECT CONTENTS OF 3 PEN SUBCUTANEOUSLY ONCE EVERY MONTH Rx Instructions: INJECT CONTENTS OF 3 PEN SUBCUTANEOUSLY ONCE EVERY MONTH furosemide [Lasix] 40 mg tablet 40 mg PO DIRECTED Qty: 90 0RF Rx Instructions: Take Lasix 40mg MWFSat Take Lasix 80mg on TThSun insulin degludec [Tresiba FlexTouch U-100] 100 unit/mL (3 mL) insulin pen 45 unit SQ HS Rx Instructions: INJECT SUBCUTANEOUSLY AT BEDTIME famotidine 20 mg tablet 20 mg PO HS flecainide 100 mg tablet 100 mg PO BID Referrals Follow up/Referrals: Provider,Referral, MD [Primary Care Provider, Medical] - See instructions Clinical Impressions Clinical Impression: Pneumonia, Sepsis, CAREY (acute kidney injury) Print Language Print Language: Vietnamese Discharge ED Provider: Ronni Ramirez General Adult HPI General Chief complaint: Weakness Stated complaint: Fever Time Seen by Provider: 01/18/25 00:54 History of Present Illness HPI narrative: 69 male with type II 80s, many for,, high lipids, A-fib, heart failure, COPD presents for multiple complaints. History obtained from EMS and patient. She reports that she has been feeling generally weak, was vomiting on Saturday but has not vomited over the last couple of days. She was febrile to 102 with EMS. Satting 87 on room air on arrival. Patient is a bit slow but is alert and oriented. She feels like she is having trouble remembering the last couple of days. She denies any chest pain abdominal pain shortness of breath dysuria headache or any other symptoms besides just feeling bad . Related Data Home Medications ?Medication ?Instructions ?Recorded ?Confirmed insulin lispro 100 unit/mL 1 sliding scale dose SQ QAC 03/19/23 12/24/24 subcutaneous pen Diabetes famotidine 20 mg tablet 20 mg PO HS 08/07/24 12/24/24 flecainide 100 mg tablet 100 mg PO BID 08/07/24 12/24/24 dexlansoprazole 60 mg 60 mg PO DAILY 09/28/24 12/24/24 capsule,biphase delayed release insulin degludec 100 unit/mL (3 45 unit SQ HS 11/24/24 12/24/24 mL) subcutaneous pen (Tresiba FlexTouch U-100 insulin) Previous Rx's ?Medication ?Instructions ?Recorded ergocalciferol (vitamin D2) 1,250 1,250 mcg PO WEEKLY #14 caps 08/03/24 mcg (50,000 unit) capsule tirzepatide 10 mg/0.5 mL See Rx Instructions .Route 08/20/24 subcutaneous pen injector .COMPLEX #4 mL (Mounjaro) memantine 7 mg capsule 7 mg PO DAILY #90 ea 09/16/24 sprinkle,extended release 24hr losartan 50 mg tablet 50 mg PO DAILY #90 tabs 09/17/24 blood-glucose sensor (Dexcom G7 #14 ea 11/02/24 Sensor device) montelukast 10 mg tablet 10 mg PO HS #90 tabs 11/09/24 (Singulair) cholecalciferol (vitamin D3) 50 50 mcg PO DAILY #90 caps 11/12/24 mcg (2,000 unit) capsule clopidogrel 75 mg tablet 75 mg PO DAILY #90 tabs 11/18/24 metoprolol succinate 25 mg 25 mg PO DAILY #30 tabs 11/18/24 tablet,extended release 24 hr dapagliflozin propanediol 10 mg 10 mg PO DAILY #90 tabs 12/24/24 tablet (Farxiga) evolocumab 140 mg/mL subcutaneous See Rx Instructions .Route 12/28/24 pen injector ([facility]atha [facility]) .COMPLEX #6 mL furosemide 40 mg tablet (Lasix) 40 mg PO DIRECTED #90 tabs 01/04/25 Allergies Allergy/AdvReac Type Severity Reaction Status Date / Time canagliflozin (From Invokana) Allergy Severe blisters Verified 12/24/24 13:13 metformin Allergy Mild Diarrhea, Verified 12/24/24 13:13 nausea, dizziness sitagliptin (From Januvia) Allergy Mild Hives Verified 12/24/24 13:13 linaclotide (From Linzess) Allergy Rash Verified 12/24/24 13:13 metronidazole (From Metrogel) Allergy Rash Verified 12/24/24 13:13 nystatin Allergy Dizziness Verified 12/24/24 13:13 rosuvastatin (From Crestor) Allergy Dizziness Verified 12/24/24 13:13 semaglutide (From Ozempic) AdvReac Severe Abdominal Verified 12/24/24 13:13 Pain atorvastatin (From Lipitor) AdvReac Intermediate body aches Verified 12/24/24 13:13 andmental confusion imdur AdvReac Mild headache Uncoded 12/01/24 13:49 [facility] Disclaimer: The information contained in this section may have been updated after the patient was seen, as this information can be updated by other users. Medical History (Updated 01/18/25 @ 01:53 by Ronni Ramirez MD) Diabetes mellitus Upper abdominal pain Abnormal echocardiogram Interatrial cardiac shunt Angina pectoris Wellness examination Memory loss CVA (cerebral vascular accident) Chest pain Body mass index (BMI) of 40.1 to 44.9 in adult Family history of Danitza's disease Ganglion cyst of left foot Typical angina Diabetic gastroparesis Vomiting Bilateral impacted cerumen Pain, gastric Gastritis Cholelithiasis Gallstones Gastroparesis Dyspnea Chest pain Onychoincurvatum Onychodystrophy Trigger finger of right hand Tendinitis of right peroneus brevis tendon Foot pain, right Insulin dependent diabetes mellitus with complications Plantar fasciitis, left Foot pain, left Onychogryposis of toenail Asymptomatic hypertension Dizziness Chest pain Epigastric abdominal pain Dehydration Abnormal cardiovascular stress test Low blood pressure reading Atypical chest pain Myalgia due to statin Fracture of fifth metatarsal bone of right foot with delayed healing Cardiac arrhythmia Sinus bradycardia Back pain Obesity, Class III, BMI 40-49.9 (morbid obesity) Labile essential hypertension TOMAS (obstructive sleep apnea) Ear itching Allergic rhinitis Breast cyst Ganglion cyst Dermoid cyst of head Diabetes mellitus, type 2 Neck pain Moderate mitral regurgitation Mood disorder Obesity HTN (hypertension) COPD (chronic obstructive pulmonary disease) GERD (gastroesophageal reflux disease) Neuropathy Anxiety Restless leg syndrome Surgical History S/P coronary artery stent placement Status post trigger finger release History of cholecystectomy History of hysterectomy History of colonoscopy Family History Other Family history of Alzheimer's disease Family history of myocardial infarction Social History Smoking Status: Never smoker second hand exposure: Yes alcohol intake: never counseling provided: provider counseling substance use type: denies use current occupational status: retired Travel in the last 8 weeks?: None household members: children housing: house lives independently: Yes marital status: legally education level: high school current occupational exposures/hazards: No caffeine: No special lex needs: No agree to transfusion: No do you feel safe at home: Yes victim of physical abuse: No victim of emotional abuse: No victim of sexual abuse: No would you like helpful sources: No Have you lived/traveled outside US in past 30 days?: No Contact w/someone who lives/traveled outside US past 30 days?: No Exposure to someone with infectious disease in past 14 days?: No Do you have a fever (greater than 100.4 F or 38 C)?: Yes Have you tested positive for COVID-19?: No Exposed to someone with COVID-19 in past 14 days?: No Do you have a sore throat?: No Do you have a cough?: No Do you have any weakness?: No Do you have any diarrhea?: No Are you experiencing any unusual bleeding?: No Do you have any muscle aches/pain?: No Do you have any abdominal pain?: No Are you experiencing loss of taste or smell?: No Other Medical History Have you received the Flu Vaccine for this season: No Have you received the Pneumonia Vaccine: Yes ROS Obtained: Yes All systems reviewed & no additional complaints except as documented Physical Exam General General appearance: alert and anxious Head Head exam: atraumatic and normocephalic Eye Eye exam: Present normal appearance, PERRL and EOMI ENT ENT exam: Present normal oropharynx and normal external ear exam Neck Neck exam: Present normal inspection and full ROM Chest Chest inspection: Present normal inspection and symmetric chest wall rise; Absent tenderness Respiratory Respiratory exam: Present normal lung sounds bilaterally; Absent respiratory distress Cardiovascular Cardiovascular exam: Present regular rate and normal rhythm Abdominal Exam Abdominal exam: Present soft; Absent distention, tenderness or guarding Extremities Exam Extremities exam: Present normal inspection; Absent edema or joint swelling Back Exam Back exam: Present normal inspection; Absent tenderness Neurological Exam Neurological exam: Present alert and oriented X3; Absent motor sensory deficit Psychiatric Psychiatric exam: Present normal affect and normal mood Skin Skin exam: Present warm, dry and normal color Lymphatic Lymphatic Findings: no adenopathy Medical Decision Making Medical Records Medical records reviewed: Yes I reviewed the patient's medical records. Screening: Per USPSTF and CDC recommendations, given the prevalence of disease in our region, it is our hospital?s policy to screen for HIV and viral Hepatitis for all patients aged 18 and over and those with ongoing risk factors. Marco A Inquiry Pt receiving controlled substance: No Marco A was queried for this patient: No Vital Signs: 01/18/25 01:03 01/18/25 01:06 01/18/25 01:30 Temperature 100 F H Temperature Source Oral Pulse Rate 93 H 100 H Pulse Rate [Left] 89 Respiratory Rate 23 20 23 Blood Pressure 106/49 L 96/47 L Blood Pressure [Right Arm] 111/56 L Blood Pressure Mean [Right Arm] 74 Blood Pressure Source [Right Arm] Automatic Cuff Blood Pressure Position [Right Arm] Sitting 02 Sat by Pulse Oximetry 93 L 91 L 92 L Oxygen Delivery Method Nasal Cannula Nasal Cannula Nasal Cannula Oxygen Flow Rate (LPM) 2 2 2 Lab Data Lab results reviewed: Yes I reviewed the patient's lab results. Lab Results 01/18/25 00:35: WBC 28.0 H*, RBC 4.34, Hgb 12.7, Hct 37.7, MCV 86.9, MCH 29.3, MCHC 33.7, RDW 12.9, Plt Count 258, MPV 10.1, Neut % (Auto) 81.5 H, Lymph % (Auto) 3.2 L, [place] % (Auto) 3.8, Eos % (Auto) 0.0 L, Baso % (Auto) 0.6, Neut # (Auto) 22.8 H, Lymph # (Auto) 0.9, [place] # (Auto) 1.1 H, Eos # (Auto) 0.0, Baso # (Auto) 0.2, Total Counted 100, Neutrophils % (Manual) 87 H, Band Neutrophils % 4.0, Lymphocytes % (Manual) 5 L, Monocytes % (Manual) 4, Platelet Estimate Normal, RBC Morphology Normal, Sodium 133 L, Potassium 4.1, Chloride 101, Carbon Dioxide 22, BUN 46 H, Creatinine 1.70 H, Estimated GFR 30 L, Est GFR ( Amer) 36 L, Glucose 220 H, Calcium 8.8, Phosphorus 3.0, Magnesium 1.5 L, Total Bilirubin 2.1 H, AST 25, ALT 19, Alkaline Phosphatase 91, Total Protein 6.9, Albumin 3.6, Lipase 32 01/18/25 00:58: VBG pH 7.41, VBG pCO2 38.1, VBG pO2 37.7, VBG HCO3 23.6, VBG Total CO2 24.8, VBG O2 Saturation 73.7 H, VBG Base Excess -1.0, VBG Lactic Acid 3.1 H 01/18/25 01:13: Urine Color Yellow, Urine Appearance Clear, Urine pH 6.0, Ur Specific Carter 1.015, Urine Protein Negative, Urine Glucose (UA) 3+, Urine Ketones Negative, Urine Blood Negative, Urine Nitrate Negative, Urine Bilirubin 1+ A, Urine Urobilinogen 0.2, Ur Leukocyte Esterase Negative, Urine RBC None, Urine WBC Occasional, Ur Squamous Epith Cells Occasional, Urine Bacteria Trace 01/18/25 00:35 01/18/25 00:35 Orders (Tests/Meds): ED MEDICATIONS Generic Name Dose Route Start Last Admin Trade Name Freq PRN Reason Stop Dose Admin Sodium Chloride 1,000 mls @ 999 mls/hr 01/18/25 01:00 01/18/25 01:02 Sod Chlor 0.9% 1000ml Bag IV 01/18/25 02:00 999 mls/hr .Q1H1M [facility] Administration Piperacillin Sod/Tazobactam 100 mls @ 200 mls/hr 01/18/25 01:31 Sod 4.5 gm/ Sodium Chloride IV 01/18/25 02:00 ONCE ONE Vancomycin/PEG/NADA/Lysine/Water 1.75 gm in 350 mls @ 175 mls/hr 01/18/25 01:45 Vancomycin 1.75gm/350ml (Peg) Premix IV 01/18/25 03:44 ONCE ONE Miscellaneous 1 each 01/18/25 01:45 Vancomycin Consult Request NOTAPPLIC 02/17/25 01:44 CONSULT PHARMACY [facility] ORDERS Category Date Time Status CXR --portable [XR chest portable] Stat Exams 01/18/25 00:54 Completed CBC w/Auto Diff [Complete Blood Count Auto Diff] Stat Lab 01/18/25 00:35 Completed CMP [Comprehensive Metabolic Panel] Stat Lab 01/18/25 00:35 Results Full Resp Panel w/COVID ([facility]) Routine Lab 01/18/25 00:55 Received Lipase Stat Lab 01/18/25 00:35 Results Magnesium Stat Lab 01/18/25 00:35 Completed Phosphorous Stat Lab 01/18/25 00:35 Completed UA [Urinalysis and Microscopic] Stat Lab 01/18/25 01:13 Completed Blood Culture Stat Micro 01/18/25 01:02 Received VBG [Venous Blood Gas] Stat RT 01/18/25 00:58 Completed Tissue Perfus/Sepsis Re-Eval Sepsis Re-Evaluation Performed: Yes Date Performed: 01/18/25 Time Performed: 01:45 Medical Decision Narrative: 69-year-old female with history of A-fib, heart failure, diabetes, hypertension, obesity, COPD presents for fever, hypoxia, malaise and weakness. History was obtained via interactive discussion with patient, EMS, chart review. On arrival, patient is febrile to 102, normotensive, satting 87 on room air, alert and interactive but a bit slow, moving all extremities spontaneously. Full physical exam performed and significant for clear lungs bilaterally, no abdominal tenderness, no focal neurologic deficits. Patient placed on 2 L nasal cannula with improvement in oxygenation. Differential includes but is not limited to viral/bacterial pneumonia, URI, UTI, pyelonephritis, intra-abdominal pathology. Patient was given 1 L fluid bolus, Vanco and Zosyn for broad-spectrum IV antibiotic coverage. Workup initiated including CBC CMP mag Phos VBG chest x-ray for viral respiratory panel, cath urine blood cultures urine culture. On re-evaluation, patient remained stable on 2 L nasal cannula. Laboratory workup independently interpreted by me and significant for marked leukocytosis with white count of 28, VBG unremarkable with exception of a mildly elevated lactate. CAREY with creatinine 1.7, BUN 46.. Imaging independently interpreted by me and significant for possible right lower lobe pneumonia.. See radiology read for full review of final results. Given patient history, exam and workup, patient's presentation most likely represents sepsis secondary to pneumonia. Patient was not given any additional fluids beyond 1 L due to concern for volume overload. Interactive discussion was had with the hospitalist on-call for admission.. Procedures Risk/Benefits of Procedure(s) Were Explained: Yes Critical Care Critical Care Time Critical Care Time: No
[2025-01-18 01:00] LABS: VBG HCO3 23.6 mmol/L (23-30); VBG PCO2 38.1 mmol/L (35-51); VBG PH 7.41 mmol/L (7.31-7.41); VBG PO2 37.7 mmol/L (28-40)
[2025-01-18 01:01] LABS: Adenovirus,PCR Not Detected (NotDetected); Chlamydophila Pneumoniae, PCR Not Detected (NotDetected); Coronavirus 19, PCR Not Detected (NotDetected); Coronovirus HKU1,PCR Not Detected (NotDetected); Influenza A, PCR Not Detected (NotDetected); Influenza AH1, 2009 Not Detected (NotDetected); Influenza AH1, PCR Not Detected (NotDetected); Influenza AH3,PCR Not Detected (NotDetected); Influenza B, PCR Not Detected (NotDetected); Mycoplasma Pneumoniae, PCR Not Detected (NotDetected); Parainfluenza 1, PCR Not Detected (NotDetected); Parainfluenza 2, PCR Not Detected (NotDetected); Parainfluenza 3, PCR Not Detected (NotDetected); Parainfluenza 4, PCR Not Detected (NotDetected)
[2025-01-18 01:01] LABS: Lactate Venous 3.1 mmol/L (0.4-2.0)
[2025-01-18] MEDS: 0.9 % SODIUM CHLORIDE 1000ML 1,000 ML 999 ML IV (01:02)
[2025-01-18 01:04] LABS: Hematocrit 37.7 % (37.0-47.0); Hemoglobin 12.7 g/dL (12.2-16.2); Immature Granulocytes % 10.9 %; Mean Corpuscular HGB Conc 33.7 g/dL (31.8-35.4); Mean Corpuscular Hemoglobin 29.3 pg (27.0-31.2); Mean Corpuscular Volume 86.9 fl (81-99); Nucleated Red Blood Cells % 0 %; Platelet Count 258 K/mm3 (142-424); Red Blood Count 4.34 M/mm3 (4.20-5.40); Red Cell Distribution Width-SD 41.0 fL; White Blood Count 28.0 K/mm3 (4.8-10.8)
--- OUTSIDE RECORDS SUMMARY | 2025-01-18 01:07 | XMS_ITS | Encounter Summary ---
Author Organization [facility] Address [address] [place] [address], [address] [place] [address] Care Team Providers Care Cyber Transport Systems Specialist Name Role Phone Alice Rutledge APRN, CNP Primary Care Prov ider Encounter Details Date Type Department Care Team (Late st Contact Info) Description 05/24/2019 FollowUp Telephone Encounter [facility] [address] [place] [address] Tracy Jara Social History Tobacco Use Types [...] documented as of this encounter Care Teams Cyber Transport Systems Specialist Relationship Specialty Start Date End Date Alice Rutledge APRN - CNP [address] [address] PCP - General Family Nurse Practitioner 05/19/19 documented as of this encounter
--- OUTSIDE RECORDS SUMMARY | 2025-01-18 01:07 | XMS_ITS | Encounter Summary ---
Author Organization [facility] Address [address] [place] [address], [address] [place] [address] Care Team Providers Care Studio Coordinator Name Role Phone Alice Rutledge APRN, CNP Primary Care Prov ider Encounter Details Date Type Department Care Team (Late st Contact Info) Description 05/22/2019 FollowUp Telephone Encounter [facility] [address] [place] [address] Tracy Jara Social History Tobacco Use Types [...] documented as of this encounter Care Teams Studio Coordinator Relationship Specialty Start Date End Date Alice Rutledge APRN - CNP [address] [address] PCP - General Family Nurse Practitioner 05/19/19 documented as of this encounter
--- OUTSIDE RECORDS SUMMARY | 2025-01-18 01:07 | XMS_ITS | Encounter Summary ---
Author Organization [facility] Address [address] [place] [address], [address] [place] [address] Care Team Providers Care Lease Buyer Name Role Phone Alice Rutledge APRN, CNP Primary Care Prov ider Encounter Details Date Type Department Care Team (Late st Contact Info) Description 05/24/2019 FollowUp Telephone Encounter [facility] [address] [place] [address] Tracy Jara Social History Tobacco Use Types [...] documented as of this encounter Care Teams Lease Buyer Relationship Specialty Start Date End Date Alice Rutledge APRN - CNP [address] [address] PCP - General Family Nurse Practitioner 05/19/19 documented as of this encounter
--- OUTSIDE RECORDS SUMMARY | 2025-01-18 01:07 | XMS_ITS | Encounter Summary ---
Author Organization [facility] Address [address] [place] [address] Care Team Providers Care Office Services Manager Name Role Phone Nonstaff, Moise LOCKWOOD Primary Care Provider + [phone] Alice Rutledge Primary Care Provider Michelle Solomon MD Unavailable [phone] Michelet Gutierrez MD Unavailable [phone] Gianni Jara MD Unavailable [phone] Christine Blank NP Unavailable Unavailable Encounter Details Date Type Department Care Team (Late st Contact Info) Description 05/27/2019 Abstract [facility] Physicians - Heart & Vascular, [address] [place] [address] Gianni Jara MD [address] [address] Social History Tobacco Use Types Packs/Day Years [...] on filedocumented in this encounter Care Teams Office Services Manager Relationship Specialty Start Date End Date Moise Garcia MD PCP - General 06/05/19 06/22/19 Alice Rutledge PCP - General Nurse Practitioner 06/23/19 Michelle Solomon MD [address] [place] [address] Medical Oncology 07/15/19 Michelet Gutierrez MD [address] [place] [address] Pulmonary Disease 07/15/19 Gianni Jara MD [address] [facility] [address] [place] [id number] Cardiology 07/15/19 Christine Blank NP [address]47 [facility] [address] [place] [id number] Nurse Practitioner Sleep Medicine 07/15/19 documented as of this encounter
--- OUTSIDE RECORDS SUMMARY | 2025-01-18 01:07 | XMS_ITS | Encounter Summary ---
Author Organization [facility] Address [address] [place] [address] Care Team Providers Care Treatment Specialist Name Role Phone Reva Lou Primary Care Provider Encounter Details Date Type Department Care Team (Late st Contact Info) Description 12/06/2020 Community [facility] [address] [place] [address] Reva Lou PA [address] [place] [address] Lupus (CMS/HCC) (Primary Dx) Social [...] erythematosus documented in this encounter Care Teams Treatment Specialist Relationship Specialty Start Date End Date Reva Lou PA [address] [place] [address] PCP - General 09/30/20 documented as of this encounter
--- OUTSIDE RECORDS SUMMARY | 2025-01-18 01:07 | XMS_ITS | Encounter Summary ---
Author Organization [facility] Address [address] [place] [address], [address] [place] [address] Care Team Providers Care Ell Teacher Name Role Phone Alice Rutledge APRN - FRONT OFFICE ATTENDANT Primary Care Prov ider Reason for Visit * Reason Comments Medication Refill Encounter Details Date Type Department Care Team (Late st Contact Info) Description 11/05/2019 Refill [facility] Endocrinology [address] [place] [address] Aria Villarreal MD [address] [place], [place] [id number] Medication Refill Social History Tobacco Use Types Packs/Day Years Used Date Smoking Tobacco: Former Cigarettes 0.5 10.9 0 05/2008 - 04/2019 Smokeless Tobacco: Never Comments:roughly 3 months, s rodolfo 06/2018 Alcohol Use Standard Drinks/Week Comments Never 0 (1 standard drink = 0.6 oz pur e alcohol) Social Connection and Isolation Panel Answer Date Recorded Frequency of Communication w ith Friends and Family More than three times a week 08/06/2019 Frequency of Social Gatherin gs with Friends and Family More than three times a week 08/06/2019 Attends Temple Services Not on file 08/05 Active Member [...] documented as of this encounter Care Teams Ell Teacher Relationship Specialty Start Date End Date Alice Rutledge, CAFE COOK - FRONT OFFICE ATTENDANT [address] [address] PCP - General Family Nurse Practitioner 05/19/19 documented as of this encounter
--- OUTSIDE RECORDS SUMMARY | 2025-01-18 01:07 | XMS_ITS | Encounter Summary ---
Author Organization [facility] Address [address] [place] [address], [address] [place] [address] Care Team Providers Care Unloading Checker Name Role Phone Alice Rutledge APRN - COUNTING MACHINE OPERATOR Primary Care Prov ider Reason for Visit * Reason Comments Medication Refill Encounter Details Date Type Department Care Team (Late st Contact Info) Description 10/19/2019 Refill [facility] Endocrinology [address] [place] [address] Aria Villarreal MD [address] [place], [place] [id number] Medication Refill Social History Tobacco Use Types [...] than three times a week 08/06/2019 Attends Syn[employer] Services Not on file 08/05 Active Member [...] documented as of this encounter Care Teams Unloading Checker Relationship Specialty Start Date End Date Alice Rutledge, ENVIRONMENTAL HEALTH MANAGER - COUNTING MACHINE OPERATOR [address] [place] [address] PCP - General Family Nurse Practitioner 05/19/19 documented as of this encounter
[2025-01-18 01:08] LABS: Chloride 101 mmol/L (98-107); Potassium 4.1 mmoL/L (3.5-5.1); Sodium 133 mmol/L (136-145)
--- OUTSIDE RECORDS SUMMARY | 2025-01-18 01:08 | XMS_ITS | Patient Health Record ---
Author Organization [facility] Address [address] [address] Care Team Providers Care Order Checker Packer Processer Name Role Phone Aamir PUGH Alice Primary Care Provider Unav ailable Doan, Gustavo Unavailable [phone] Reason For Referral No Information Medications Medication SIG (Take, Route, Frequency, Duration) Notes Start Date End Date Status Famotidine 20 MG Tablet Famotidine 20MG, 1 (one) Tablet daily # 30, 10/27/2019, Ref. x1. Active Oral daily; Duration: 30 10/27/2019 Active Vitamin D3 1.25 MG (44539 UT) Capsule Vitamin D3( 1.25 MG(68049 UT) Oral 59851 U ) Active -Hx Entry Oral; Duration: 0 Qty: 12; Refills: 1 08/24/2019 Active Sertraline HCl 100 MG Tablet Sertraline HCl( 100MG Oral ) Active -Hx Entry Oral; Duration: 0 11/17/2019 Active Fenofibrate 160 MG Tablet Fenofibrate( 160MG Oral ) Active -Hx Entry Oral; Duration: 0 11/17/2019 Active buPROPion HCl ER (SR) 150 MG Tablet Extended Release 12 Hour buPROPion HCl ER (SR)( 150MG Oral ) Active -Hx Entry Oral; Duration: 0 11/17/2019 Active rOPINIRole HCl 2 MG Tablet rOPINIRole HCl( 2MG Oral ) Active -Hx Entry Oral; Duration: 0 11/17/2019 Active Basaglar KwikPen 100 UNIT/ML Solution Pen-injector Basaglar KwikPen( 100UNIT/ML Subcutaneous ) Active -Hx Entry Subcutaneous; Duration: 0 11/17/2019 Active Ondansetron 4 MG Tablet Disintegrating Ondansetron( 4MG Oral 4 mg ) Active -Hx Entry Oral; Duration: 0 Qty: 30 08/10/2019 Active Dexilant 60 MG Capsule Delayed Release Dexilant( 60MG Oral ) Active -Hx Entry Oral; Duration: 0 11/17/2019 Active Potassium Chloride Rachel ER 20 MEQ Tablet Extended Release Potassium Chloride Rachel ER( 20MEQ Oral ) Active -Hx Entry Oral; Duration: 0 11/17/2019 Active Flecainide Acetate 50 MG Tablet Flecainide Acetate( 50MG Oral ) Active -Hx Entry Oral; Duration: 0 11/17/2019 Active Fluticasone Propionate 50 MCG/ACT Suspension Fluticasone Propionate( 50MCG/ACT Nasal 1 spray ) Active -Hx Entry Nasal; Duration: 0 07/13/2019 Active Metoclopramide HCl 5 MG Tablet Metoclopramide HCl 5MG, 1 (one) Tablet before every meal # 90, 11/17/2019, Ref. x1. Active Oral before every meal; Duration: 30 11/17/2019 Active Ezetimibe 10 MG Tablet Ezetimibe( 10MG O ral ) Active -Hx Entry Oral; Duration: 0 11/17/2019 Active dilTIAZem HCl ER Coated Beads 240 MG Capsule Extended Release 24 Hour dilTIAZem HCl ER Coated Beads( 240MG Oral ) Active -Hx Entry Oral; Duration: 0 11/17/2019 Active Xarelto 20 MG Tablet Xarelto( 20MG Oral ) Active -Hx Entry Oral; Duration: 0 11/17/2019 Active Atenolol 50 MG Tablet Atenolol( 50MG Ora l 50 mg ) Active -Hx Entry Oral; Duration: 0 Qty: 90 04/21/2019 Active Pen Camp Pen Camp( ) Activ e -Hx Entry; Duration: 0 Qty: 100; Refills: 1 07/29/2019 Active Furosemide 40 MG Tablet Furosemide( 40MG Oral ) Active -Hx Entry Oral; Duration: 0 11/17/2019 Active busPIRone HCl 30 MG Tablet busPIRone HCl( 30MG Oral ) Active -Hx Entry Oral; Duration: 0 11/17/2019 Active metFORMIN HCl 1000 MG Tablet metFORMIN HCl( 1000MG Oral ) Active -Hx Entry Oral; Duration: 0 11/17/2019 Active Losartan Potassium-HCTZ 100-25 MG Tablet Losartan Potassium-HCTZ( 100-25MG Oral 1 tbl ) Active -Hx Entry Oral; Duration: 0 Qty: 90 05/11/2019 Active Dicyclomine HCl 10 MG Capsule Dicyclomine HCl( 10MG Oral 20 mg ) Active -Hx Entry Oral; Duration: 0 10/27/2019 Active Gabapentin 100 MG Capsule Gabapentin( 100MG Oral ) Active -Hx Entry Oral; Duration: 0 11/17/2019 Active Immunizations Vaccine Route Administration Date Status Comme nts Influenza, seasonal, injectable, preservative free, 3 yrs and above Unknown 02/06/2019 Administered ,ImmunizationNam e,' : Influenza,trivalent,s easonal,adj.,non preservative (97054) ,Status,' : Complete Pneumococcal polysaccharide PPV23 Unknown 02/24/2019 Administered ,Immunizati onName,' : Pneumococcal (2 yrs and up) PPSV23 (12526) ,Status,' : Complete Zoster Unknown 03/13/2019 Administered ,Immunizatio nName,' : Zoster (shingles), recombinant, sub-unit, IM (67394) ,Status,' : Complete Zoster Unknown 05/16/2019 Administered ,Immunizatio nName,' : Zoster (shingles), recombinant, sub-unit, IM (69263) ,Status,' : Complete Social History Social History Additional Details Category Social Info Options Details Migrated Social History Migrated Social History Alcohol use, Active, Attribute Title : Never,, Tobacco use, Active, Attribute Title : Former smoker, Problems Problem Type SNOMED Code ICD Code Onset Dates Problem Status W/U Status Risk Notes Problem Disorder due to type 2 diabetes mellitus (328888884) Type 2 diabetes mellitus with unspecified complications (E11.8) 2018 Active confirmed Problem Vitamin D deficiency (38685299) Vitamin D deficiency, unspecified (E55.9) 2019 Active confirmed Problem Morbid obesity (disorder) (860479717) Morbid (severe) obesity due to excess calories (E66.01) 2019 Active confirmed Problem Obesity (298624930) Obesity, unspecified (E66.9) 2019 Active confirmed Problem Generalized anxiety disorder (61320667) Generalized anxiety disorder (F41.1) 2018 Active confirmed Problem Obstructive sleep apnea syndrome (disorder) (50796245) Obstructive sleep apnea (adult) (pediatric) (G47.33) 2019 Active confirmed Problem Polyneuropathy (97111901) Polyneuropathy, unspecified (G62.9) 2018 Active confirmed Problem Paroxysmal atrial fibrillation (448160664) Paroxysmal atrial fibrillation (I48.0) Active confirmed Problem Atrial flutter (0422301) Unspecified atrial flutter (I48.92) 2019 Active confirmed Problem Cerebral infarction (793845781) Cerebral infarction, unspecified (I63.9) 2018 Active confirmed Problem Pneumonia (848027510) Pneumonia, unspecified organism (J18.9) 2019 Problem resolved confirmed Problem Acute pulmonary edema (35726827) Acute pulmonary edema (J81.0) 2019 Active confirmed Problem Gastro-esophagea l reflux disease without esophagitis (303681208) Gastro-esophage al reflux disease without esophagitis (K21.9) 2018 Active confirmed Problem Functional dyspepsia (6063113) Functional dyspepsia (K30) Active confirmed Had detailed discussion of gastroparesis diet. Emailed handout to her second time. On limited income, it's difficult for her to acquire the foods she needs to eat at this time, so spent extra time discussing how to eat foods. Continued Reglan. Discussed safe usage. She understands to stop if involuntary movements occur. Tight glycemic control emphasized, sees government services professional virtually next week Manage constipation This was a telemedicine phone visit, including two-way audio communication, in lieu of an in-person visit due to coronavirus pandemic emergency. Patient provided verbal consent to use the phone visit. I conducted an interview, performed a limited auditory exam, and educated/discuss ed with the patient my assessment and plan. We also discussed the potential limitations of proper diagnosis, assessment, and treatment in a virtual rather than an in-person format. I spent 16 minutes on this call conducting an interview, performing a limited exam by phone, and educating the patient on my assessment and plan. Patient seen in collaboration with Dr. Doan Problem Constipation (08613799) Constipation, unspecified (K59.00) Active confirmed Recommend daily bowel regimen with adequate hydration, dietary fiber and physical activity. Use of OTC supplements such as fiber, stool softener, miralax as tolerated and titrate as needed to achieve desired stool consistency and frequency. Cautioned the use of bulk forming fiber given she likely has gastroparesis Cautioned use of dicyclomine, may worsen constipation. Consider Motegrity for improved GI motility. This was a video visit, including two-way audio and video communication, in lieu of an in-person visit due to coronavirus emergency. Patient provided verbal consent to use the video visit. I spent 17 minutes on this visit conducting an interview, performing a limited exam by video, with >50% spent educating the patient on my assessment and plan. Patient seen in collaboration with Dr. Doan Problem Shortness of breath (722911430) Shortness of breath (R06.02) Active confirmed Problem Chest pain (31082695) Chest pain, unspecified (R07.9) 2018 Problem resolved confirmed Problem Abdominal pain (80069287) Unspecified abdominal pain (R10.9) Active confirmed Patient with multiple health comorbidities, uncontrolled DM recently started on new medications, CHF, CAD, CVA , a fib on anticoagulation, GERD on 60 mg dexilant. EGD unremarkable. Post-prandial pain, along with nausea and vomiting is suspicious for gastroparesis 2/2 uncontrolled diabetes, although gastric emptying study. Patient has switched to 5-6 small meals/snacks throughout the day, without improvement. She also stopped Trulicity. Will repeat CBC, CMP, lactic acid, lipase. If normal, will start low dose Reglan and titrate as tolerated. Problem Therapeutic drug monitoring, quantitative (regime/therapy) (43244902) Encounter for therapeutic drug level monitoring (Z51.81) Active confirmed Problem Health status (945045043) Other specified health status (Z78.9) 2019 Active confirmed Problem History of polyp of colon (situation) (490302037) Personal history of colonic polyps (Z86.010) Active confirmed Patient with history of advanced adenoma versus endoscopically resected colon cancer. Will obtain colonosc records with pathology. Patient has relocated to [place] and wishes to pursue further surveillance here at [facility]. Will schedule for surveillance colonoscopy. Problem Type II diabetes mellitus without complication (628598070) Type 2 diabetes mellitus without complications (E11.9) 2018 Problem resolved confirmed Problem Hyperglycemia due to type 2 diabetes mellitus (169334728080644 ) Type 2 diabetes mellitus with hyperglycemia (E11.65) 2019 Active confirmed Problem Type 2 diabetes mellitus with other specified complication (E11.69) 2019 Active confirmed Problem Diabetic peripheral neuropathy associated with type 2 diabetes mellitus (6737970927569) Type 2 diabetes mellitus with diabetic neuropathy, unspecified (E11.40) 2019 Active confirmed Problem Chronic diastolic heart failure (364726111) Chronic diastolic (congestive) heart failure (I50.32) 2019 Active confirmed Problem Mixed hyperlipidemia (744272073) Mixed hyperlipidemia (E78.2) 2018 Active confirmed Problem Essential hypertension (30099198) Essential (primary) hypertension (I10) 2019 Active confirmed Problem Atrial fibrillation (15007071) Unspecified atrial fibrillation (I48.91) 2019 Active confirmed Problem History of malignant neoplasm of colon (234326856) Personal history of malignant neoplasm of large intestine (Z85.038) 2018 Active confirmed Problem Peripheral circulatory disorder associated with diabetes mellitus (252162550) Type 2 Diabetes Mellitus With Oth Circulatory Complications (E11.59) 2019 Active confirmed Problem Depression (657364586) Depression, unspecified (F32.A) 2018 Active confirmed Problem Other specified disease of esophagus (K22.89) Active confirmed Patient with ct showing distal esophageal thickening. Suspect reflux esophagitis versus vomiting esophagitis. Will schedule for EGD to evaluate for esophageal malignancy versus Toney's esophagus. Continue Dexilant. Problem Patent foramen ovale (983713462) Patent foramen ovale (Q21.12) Active confirmed Problem Acute coronary artery occlusion not resulting in myocardial infarction (60116166998961) Acute coronary thrombosis not resulting in myocardial infrc (I24.0) 2018 Active confirmed Problem Atherosclerosis of coronary artery without angina pectoris (569381932792531 ) Athscl heart disease of [place] coronary artery w/o ang pctrs (I25.10) 2018 Active confirmed Problem History of cerebrovascular accident without residual deficits (777811441) Prsnl hx of TIA (TIA), and cereb infrc w/o resid deficits (Z86.73) Active confirmed Plan Of Treatment No Information Insurance Providers Payer Name Payer Address Payer Phone Subscriber Number Group Number Insured Name Patient Relationship to Insured Coverage Start Date Coverage End Date [facility] [address] [place] [address] [id number] Yenni Shinh Self - patient is the insured Medicaid [place] [address] [place] [address] [id number] Yenni Shinh Self - patient is the insured [facility] [place] [address] [place] [address] [id number] Yenni Shinh Self - patient is the insured Medicare B [place] [address] [address] [id number] Yenni Shinh Self - patient is the insured Medical (General) History Surgical History Surgery Date(Month/Year) hystrectomy, Active, Gallbladder Surgery, Active, cholecystectomy, Active,
--- OUTSIDE RECORDS SUMMARY | 2025-01-18 01:08 | XMS_ITS | Referral Summary ---
Author Organization [facility] Address [address] [place] [address] Care Team Providers Care College Football Coach Name Role Phone Pcp, Pending Only MD Primary Care Provider [phone] Kin Urszula DO Unavailable [phone] Social History Tobacco Use Types Packs/Day Years [...] to Health Maintenance Insurance MEDICARE on file [facility] MED[facility] REPLACEMENT Care Teams College Football Coach Relationship Specialty Start Date End Date Pcp, Pending Only, [place], [place] [id number] PCP - General Internal Medicine 08/17/19 [place] [address] [place] [address] 08/17/19
--- OUTSIDE RECORDS SUMMARY | 2025-01-18 01:08 | XMS_ITS | Clinical Summary ---
Author Organization [facility] Address [address] [place] [address], [address] [place] [address] Care Team Providers Care Electrician Deck Name Role Phone Aamir Alice Eller APRN - COPY EDITOR Primary Care Prov ider Allergies Active Allergy [...] s:Uncontrolled type 2 diabetes mellitus with hyperglycemia ([facility]),Morbid obesity due to excess calories ([facility]),Neuropathy due to type 2 diabetes mellitus ([facility]) Take 1 capsule by mouth nightly for [...] complication, with long-term current use of insulin ([facility]) Inject 1 pen into the skin daily 100 each 1 Active ondansetron (ZOFRAN-ODT) [address] 1 tablet under the tongue daily as needed for Nausea 30 tablet Active vitamin D (CHOLECALCIFEROL) 13851 UNIT CAPSIndications:V itamin D deficiency Take 1 capsule by mouth once a week 12 capsule 1 020 Active metFORMIN (GLUCOPHAGE) 1000 MG tabletIndications :Type 2 diabetes mellitus with complication, with long-term current use of insulin ([facility]) Take 1 tablet by mouth 2 times [...] Es Mari RN Clinical Performance Nurse [facility] [phone] BPCI-A Patient, will follow for the next [...] disorder) 04/21/2019 Coronary artery disease invo lving kn[place] coronary artery of knik heart without angina pectoris 03/04/2019 Neuropathy 03/03/2019 Blockage of coronary artery of heart 02/16/2019 Depression 10/06/2018 Type 2 diabetes mellitus wit h complication, with long-term current use of insulin 10/06/2018 Overview (10/06/2018): dx for 5 years-2013? Gastroesophageal reflux disease 10/06/2018 Personal history of colon cancer 10/06/2018 Mixed hyperlipidemia 10/06/2018 Overview (03/03/2019): Patient is supposed to be on Gemfibrozil 600 mg twice daily per [facility] physician group note from last PCP in [place], [place] on 07/24/2018 PAF (paroxysmal atrial fibrillation) [...] Administration Dates Next Due Hep B, ENGERIX-B, RECOMBIVAX-HB, (age 20y+), IM, 1mL 07/28/2019 Influenza, FLUAD, [...] than three times a week 08/06/2019 Attends [employer] Not on file 08/05 Active Member [...] file Insurance MEDICARE [facility] [address] Advance Directives * Full Code (Latest Code [...] 11:02 PM 08/04/2018 6:42 PM Care Teams Electrician Deck Relationship Specialty Start Date End Date Alice Rutledge, SR. MANAGER CORPORATE COMMUNICATIONS - COPY EDITOR [address] [place] [address] PCP - General Family Nurse Practitioner 05/19/19
--- OUTSIDE RECORDS SUMMARY | 2025-01-18 01:08 | XMS_ITS | Clinical Summary ---
Author Organization [facility] Address [address] [place] [address] Care Team Providers Care Bulb Sorter Name Role Phone Pcp, Pending Only MD Primary Care Provider Urszula Sanderson DO Unavailable [phone] Social History Tobacco Use Types Packs/Day Years [...] to Health Maintenance Insurance MEDICARE on file [facility] MEDICARE REPLACEMENT Care Teams Bulb Sorter Relationship Specialty Start Date End Date Pcp, Pending Only, [place], [place] [id number] PCP - General Internal Medicine 08/17/19 [place] [address] [place] [address] 08/17/19
--- OUTSIDE RECORDS SUMMARY | 2025-01-18 01:08 | XMS_ITS | Clinical Summary ---
Author Organization [facility] Address [address] [place] [address] Care Team Providers Care Vision Care Associate Name Role Phone Reva Lou JAMES Primary Care Provider Allergies Active Allergy Reactions Criticality Noted Date [...] 12/28/2020 Active ergocalciferol (Vitamin D-2) 1.25 MG (42304 UT) capsule Take 1 capsule (50,000 Units) [...] place to sleep or slept in a assisted (including now)? No 03/20/2024 Utilities Answer Date [...] (2 - Td or Tdap) 06/18/2022 06/18/2012 [id number] Vaccine ( - season) 2024 UKY-Diabetes: Hemoglobin [...] 6.6(H) <5.7 % 03/19/2024 5:40 PM EDT [facility] Blood Venous blood specimen / Unknown Venipuncture / Unknown 03/19/2024 3:37 PM EDT 03/19/2024 3:58 PM EDT Narrative [facility] - 03/19/2024 5:40 PM EDT HA1C Interpretive Data: Diagnosis of Diabetes: Diabetic > or = 6.5% Pre-diabetic 5.7 to 6.4% Non-diabetic < or = 5.6% Glycemic Targets for Type I and Type II Diabetics: Non- Adults <7.0% Adults <6.0% Children and Adolescents <7.5% Source: [place] [employer]. Standards of medical care in diabetes,2017. Diabetes Care.2017:40 (suppl 1):S1-S135. HbA1c assay performed by an ion-exchange chromatography method that is certified traceable to the DCCT. Santhosh Swenson MD LAB BLOOD ORDERABLES Final R esult [facility] [address] [place] [address] * Hepatitis C Antibody - ED (03/19/2024 12:44 PM EDT) Hepatitis C Antibody Negative Negative 03/19/2024 2:20 PM EDT [facility] Blood Venous blood specimen / Unknown Venipuncture / Unknown 03/19/2024 12:44 PM EDT 03/19/2024 1:29 PM EDT us Zaki Murguia MD LAB BLOOD ORDERABLES Final Resul t Performing Organization Address City/[facility] Co de Phone Number [facility] [address] [place] [address] from Last 3 Months or Most Recently Relevant to Health Maintenance Insurance [facility] MEDICARE [facility] MEDICAID [place] Advance Directives * Full Code (Latest Code Status on File) Date Activated Date Inactivated Comments 03/19/2024 1:31 PM 03/20/2024 8:13 PM Question Answer Comments Patient has decision-making capacity? Yes Care Teams Vision Care Associate Relationship Specialty Start Date End Date Reva Lou PA [address] [place] [address] PCP - General 09/30/20
--- OUTSIDE RECORDS SUMMARY | 2025-01-18 01:08 | XMS_ITS | Encounter Summary ---
Author Organization [facility] Address [address] [place] [address], [address] [place] [address] Care Team Providers Care Event Sales Manager Name Role Phone Alice Rutledge APRN - LEXY Primary Care Prov ider Reason for Visit * Reason Onset Date Comments Medication Refill 07/27/2019 Encounter Details Date Type Department Care Team (Late st Contact Info) Description 07/27/2019 Refill [facility] [address] [place] [address] Alice Rutledge, CAITLYN - HAND CUTTER APPRENTICE [address] [place] [address] Medication Refill Social History Tobacco Use Types [...] documented as of this encounter Care Teams Event Sales Manager Relationship Specialty Start Date End Date Alice Rutledge, THERAPY TECHNICIAN - HAND CUTTER APPRENTICE [address] [place] [address] PCP - General Family Nurse Practitioner 05/19/19 documented as of this encounter
--- OUTSIDE RECORDS SUMMARY | 2025-01-18 01:08 | XMS_ITS | Clinical Summary ---
Author Organization [facility] Address [address] [place] [address] Care Team Providers Care Criminal Justice Program Director Name Role Phone Alice Rutledge Primary Care Provider Michelle Solomon MD Unavailable [phone] Michelet Gutierrez MD Unavailable [phone] Gianni Jara MD Unavailable [phone] Christine Blank NP Unavailable Unavailable Allergies Active Allergy Reactions Criticality Noted Date Comments Canagliflozin 08/01/2018 Other reaction(s): Unknown Linaclotide 03/03/2019 Metronidazole 03/03/2019 Nystatin 03/03/2019 dizziness Nqaxyrs-Enk-Mwy Reductase Inhibitors 08/01/2018 Other reaction(s): Unknown Medications [...] flutter 06/05/2019 Coronary artery disease invo lving [place] coronary artery of [place] heart without angina pectoris 06/05/2019 Essential hypertension [...] Comments Father alzheimer alzheimer Mother (Age 67) [place] Social History Tobacco Use Types Packs/Day Years [...] 1953 Diabetes Mellitus Foot Care (Yearly) 1953 FIT 1953 Tetanus Vaccination (Every 1 0 Years) 1971 Pneumococcal Vaccine: 50+ Ye ars (1 of 1 - PCV) 2003 RSV Vaccines (1 - Risk 60-74 years 1-dose series) 2013 Fall Risk Assessment 2018 Breast Cancer Screening 07/24/2020 07/24/2018 COVID-19 Vaccine (1 - 2023-2 5 season) 2024 Osteoporosis Screening 02/14/2024 02/13/2019, 2018 Advance Care Planning 05/20/2024 Depression Screening 05/20/2024 Diabetes Mellitus Microalbum in (Yearly) 05/20/2024 Renal Monitoring 05/20/2024 08/17/2019, , 06/26/2019, Additional history exists Diabetes A1c Monitoring 09/16/2024 03/19/2024 Influenza Vaccination [...] LAB Albumin/Globulin Ratio 1.3 1.0 - 2.1 [facility] BUN/Creatinine Ratio 23 [facility] Serum (Serum) 07/13/2019 11: 32 AM EST 07/13/2019 4:35 PM EST Marguerite Bernal CHEMISTRY ORDERABLES Final Resul t [facility] [address] [place] [address], [facility] from Last 3 Months or Most Recently Relevant to Health Maintenance Insurance [facility] [place] [facility]UAL [place] [facility] [place] Care Teams Criminal Justice Program Director Relationship Specialty Start Date End Date Alice Rutledge PCP - General Nurse Practitioner 06/23/19 Michelle Solomon MD [address] [place] [address] Medical Oncology 07/15/19 Michelet Gutierrez MD [address] [place] [address] Pulmonary Disease 07/15/19 Gianni Jara MD [address] [facility] [address] [place], [place] [id number] Cardiology 07/15/19 Christine Blank NP [address] [facility] [address] [place] [address] Nurse Practitioner Sleep Medicine 07/15/19
--- OUTSIDE RECORDS SUMMARY | 2025-01-18 01:08 | XMS_ITS | Encounter Summary ---
Author Organization [facility] Address [address] [place] [id number] Care Team Providers Care Cpht Name Role Phone Alice Rutledge Primary Care Provider Michelle Solomon MD Unavailable [phone] Michelet Gutierrez MD Unavailable [phone] Gianni Jara MD Unavailable [phone] Christine Blank NP Unavailable Unavailable Encounter Details Date Type Department Care Team (Late st Contact Info) Description 07/13/2019 Orders Only Laboratory [address] [place] [address] Marguerite Benral [address] [place] [address] Flank pain (Primary Dx) Social History Tobacco [...] LAB CO2 28 22 - 29 mmol/L [facility] Anion Gap 14(H) 5 - 13 mmol/L [facility] Comment:Anion gap calculatio n does not include potassium (K+) value. BUN 22 7 - 25 mg/dL [facility] Creatinine 0.96 0.50 - 1.20 [...] [email or web address] Calcium 9.4 8.4 - 10.5 mg/dL [facility] GFR MDRD Non Af Amer 58 See Note [facility] Comment: GFR is estimated using Creatinine, age, gender and race. Patient's values should be interpreted as a trend. Between 30 and 90 ml/min/1.73m2, clinical correlation is needed. For additional information: [email or web address] Total Bilirubin 0.2 0.2 - 1.2 mg/dL [facility] AST 16 0 - 30 U/L [facility] ALT 17 0 - 40 U/L [facility] Alkaline Phosphatase 110 33 - 140 U/L [facility] Total Protein 7.2 6.0 - 8.0 g/dL [facility] Albumin 4.0 3.5 - 5.0 g/dL [facility] Globulin 3.2 2.0 - 3.7 g/dL [facility] Albumin/Globulin Ratio 1.3 1.0 - 2.1 [facility] BUN/Creatinine Ratio 23 [facility] Serum (Serum) 07/13/2019 11: 32 AM EST 07/13/2019 4:35 PM EST Marguerite Bernal CHEMISTRY ORDERABLES Final Resul t [facility] [address] documented in this encounter Visit Diagnoses Diagnosis Flank pain- Primary Abdominal pain, unspecified site documented in this encounter Care Teams Cpht Relationship Specialty Start Date End Date Alice Rutledge PCP - General Nurse Practitioner 06/23/19 Michelle Solomon MD [address] [place] [address] Medical Oncology 07/15/19 Michelet Gutierrez MD [address] [facility] [place] [address] Pulmonary Disease 07/15/19 Gianni Jara MD [address] [facility] [address] [place] [id number] Cardiology 07/15/19 Christine Blank NP [address] [address] Nurse Practitioner Sleep Medicine 07/15/19 documented as of this encounter
--- OUTSIDE RECORDS SUMMARY | 2025-01-18 01:08 | XMS_ITS | Clinical Summary ---
Author Organization [facility] Address [address] [place] [address] Care Team Providers Care Shape Brick Molder Name Role Phone Damaso Radha CAITLYN Primary Care Provider [phone] Social History Tobacco Use Types Packs/Day Years [...] HEPATITIS C SCREENING Completed 03/19/2024, 019 Insurance [facility] MEDIC[facility] ADVANTAGE SNP PPO Care Teams Shape Brick Molder Relationship Specialty Start Date End Date Radha Petit APRN [address] [facility] [address] PCP - General Family Medicine 08/18/24
[2025-01-18 01:10] LABS: Blood Urea Nitrogen 46 mg/dl (7-17); Creatinine,Serum 1.70 mg/dl (0.52-1.04); Estimated Glomerular Filt Rate 30 ml/min (>60); GFR (African American) 36 ML/MIN (>60)
[2025-01-18 01:11] LABS: Alanine Aminotransferase 19 U/L (12-78); Alkaline Phosphatase 91 U/L (38-126); Aspartate Amino Transferase 25 U/L (14-36); Bilirubin,Total 2.1 mg/dl (0.2-1.3); Lipase 32 U/L (23-300); Total Protein,Serum 6.9 g/dl (6.3-8.2)
[2025-01-18 01:12] LABS: Calcium 8.8 mg/dl (8.4-10.2); Glucose 220 mg/dl (74-100)
[2025-01-18 01:15] LABS: Microscopic, Urine URINE MICROSCOPIC (MICROSCOPIC)
[2025-01-18 01:17] LABS: Color,Urine YELLOW (Yellow); Glucose,Urine (UA) 3+ (Negative); Ketones,Urine Negative (Negative); Leukocyte Esterase,Urine Negative (Negative); PH,Urine 6.0 (5.0-8.5); Protein,Urine Negative (Negative); Specific Gravity, Urine 1.015 (1.005-1.030); Urobilinogen,Urine 0.2 EU/dl (0.2)
[2025-01-18 01:17] LABS: Magnesium 1.5 mg/dl (1.6-2.3); Phosphorous 3.0 mg/dl (2.5-4.5)
[2025-01-18 01:21] LABS: Bilirubin,Urine 1+ (Negative)
--- NOTE | 2025-01-18 01:22 | PC.NURSE ---
Radiology at bedside r/t CXR
[2025-01-18 01:27] LABS: Bacteria,Urine Trace /lpf; Squamous Epithelial Cell,Urine Occasional #/hpf (0-5); WBC,Urine Occasional #/hpf (0-3)
[2025-01-18 01:30] LABS: RBC Morphology Normal; Total Cells Counted 100
[2025-01-18] MEDS: PIPERACILLIN/TAZO 4.5 GM in 0.9 % SODIUM CHLORIDE 100 ML IV (01:42)
--- NOTE | 2025-01-18 02:07 | PC.NURSE ---
Report given to Debbi BAKER on [employer]
--- NOTE | 2025-01-18 02:12 | P.HP_ITS ---
<Statement entered by Corey Esteban MD - 01/18/25 13:34> Rounded on patient after nurse practitioner. Personally examined and interviewed patient. Agree with exam findings and care plan as documented. History of Present Illness *Admission Date: 01/18/25 *Reason for visit:: Fever unknown origin possible right lower lobe pneumonia *History of present illness: Patient has been ill since Saturday., She states she has not done any travel or been around large groups of people or any sick people with any illness. She has developed a temperature and now has a significantly elevated white count. Has a long history of mental illness being treated on several different medications. But she was able to answer questions well and gave me a fairly good history. Patient also noted that she just recently received the results of her Cologuard back and that it was positive. Noting that the patient was approximately 250 pounds about a year ago she is down to 197 down 53 pounds and just more than a year. Noting that the patient is diabetic and that her hemoglobin A1c per past records have been in the mid 6 range. Chest x-ray shows possible right lower lung pneumonia. Patient shows the fact that she is on oxygen at this point in time that she says she does not use at home. Stated that she is not a smoker but does not get COVID or influenza vaccination. I have excepted the patient be admitted on the floor pharmacy consult continue vancomycin also continue Zosyn.. Will place the patient on cardiac monitoring and continuous pulse ox.. Also will get a twelve-lead EKG to verify that the patient still is in atrial fibs. Monitor in room looks almost normal sinus with a lot of PACs and is perfusing very well.. [facility] Disclaimer: The information contained in this section may have been updated after the patient was seen, as this information can be updated by other users. Medical History Mini stroke Ganglion cyst of hand tendon excised Irritable bowel syndrome with mixed bowel habits Colon cancer screening Breast cancer screening by mammogram Diabetes mellitus Upper abdominal pain Abnormal echocardiogram Interatrial cardiac shunt Angina pectoris Wellness examination Memory loss CVA (cerebral vascular accident) Chest pain Body mass index (BMI) of 40.1 to 44.9 in adult Family history of Danitza's disease Ganglion cyst of left foot Typical angina Diabetic gastroparesis Vomiting Bilateral impacted cerumen Pain, gastric Gastritis Cholelithiasis Gallstones Gastroparesis Dyspnea Chest pain Onychoincurvatum Onychodystrophy Trigger finger of right hand Tendinitis of right peroneus brevis tendon Foot pain, right Insulin dependent diabetes mellitus with complications Plantar fasciitis, left Foot pain, left Onychogryposis of toenail Asymptomatic hypertension Dizziness Chest pain Epigastric abdominal pain Dehydration Abnormal cardiovascular stress test Low blood pressure reading Atypical chest pain Myalgia due to statin Fracture of fifth metatarsal bone of right foot with delayed healing Cardiac arrhythmia Sinus bradycardia Back pain Obesity, Class III, BMI 40-49.9 (morbid obesity) Labile essential hypertension TOMAS (obstructive sleep apnea) Ear itching Allergic rhinitis Breast cyst Ganglion cyst Dermoid cyst of head Diabetes mellitus, type 2 Neck pain Moderate mitral regurgitation Mood disorder Obesity HTN (hypertension) COPD (chronic obstructive pulmonary disease) GERD (gastroesophageal reflux disease) Neuropathy Anxiety Restless leg syndrome Surgical History Hx of removal of cyst S/P coronary artery stent placement Status post trigger finger release History of cholecystectomy History of hysterectomy History of colonoscopy Family History Other Family history of Alzheimer's disease Family history of myocardial infarction Social History (Updated 01/18/25 @ 02:53 by Debbi Ahumada RN) Smoking Status: Never smoker second hand exposure: Yes alcohol intake: never counseling provided: provider counseling substance use type: former substance user, marijuana and crack/cocaine counseling given: No (former user) current occupational status: retired Travel in the last 8 weeks?: None household members: children housing: house lives independently: Yes marital status: legally education level: high school current occupational exposures/hazards: No caffeine: No special lex needs: No agree to transfusion: No do you feel safe at home: Yes victim of physical abuse: No victim of emotional abuse: No victim of sexual abuse: No would you like helpful sources: No Have you lived/traveled outside US in past 30 days?: No Contact w/someone who lives/traveled outside US past 30 days?: No Exposure to someone with infectious disease in past 14 days?: No Do you have a fever (greater than 100.4 F or 38 C)?: Yes Have you tested positive for COVID-19?: No Exposed to someone with COVID-19 in past 14 days?: No Do you have a sore throat?: No Do you have a cough?: No Do you have any weakness?: Yes Do you have any diarrhea?: No Are you experiencing any unusual bleeding?: No Do you have any muscle aches/pain?: No Do you have any abdominal pain?: No Are you experiencing loss of taste or smell?: No Other Medical History Have you received the Flu Vaccine for this season: No Have you received the Pneumonia Vaccine: Yes Review of Systems Review of Systems Review of systems:: pertinent systems reviewed and negative unless documented below Review of systems (narrative): States has just been told she has a history of a positive Cologuard test return Constitutional Constitutional: Reports as per HPI, Reports weakness and Reports weight loss (50 pounds in just a little over a year) Eyes Eyes: Reports as per HPI ENT Ears, Nose, Mouth, and Throat: Reports as per HPI Comments: Denies sore throat or cough *Cardiovascular Comments: Denies chest pain *Respiratory Respiratory: Reports as per HPI Comments: Patient is now on oxygen but she states she does not feel like she is breathing badly *Gastrointestinal Comments: No abdominal pain obese rounded soft no masses felt no pulsations felt *Musculoskeletal Musculoskeletal: Reports as per HPI Integumentary/Breasts Skin/Breast: Reports as per HPI *Neurologic Neurologic: Reports as per HPI and Reports weakness Psychiatric Psychiatric: Reports as per HPI Comments: Patient has a long history of psychiatric issues including tar dive dyskinesia per old record Hematologic/Lymphatic Hematologic/Lymphatic: Reports as per HPI Allergic/Immunologic Allergic/Immunologic: Reports as per HPI Meds Home Medications and Allergies Home Medications ?Medication ?Instructions ?Recorded ?Confirmed ?Type insulin lispro 100 unit/mL 1 sliding scale dose SQ AC Diabetes 03/19/23 01/18/25 History subcutaneous pen ergocalciferol (vitamin D2) 1,250 1,250 mcg PO WEEKLY #14 caps 08/03/24 01/18/25 Rx mcg (50,000 unit) capsule famotidine 20 mg tablet 20 mg PO HS 08/07/24 5 History flecainide 100 mg tablet 100 mg PO BID 08/07/2401/18 History memantine 7 mg capsule 7 mg PO DAILY #90 ea 5 01/18/25 Rx sprinkle,extended release 24hr losartan 50 mg tablet 50 mg PO DAILY #90 tabs 06/1301/18/25 Rx dexlansoprazole 60 mg 60 mg PO DAILY 09/28/2406/13 History capsule,biphase delayed release blood-glucose sensor (Dexcom G7 #14 ea 11/02/24 Rx Sensor device) montelukast 10 mg tablet 10 mg PO HS #90 tabs 5 01/18/25 Rx (Singulair) cholecalciferol (vitamin D3) 50 50 mcg PO DAILY #90 ca ps 11/12/24 01/18/25 Rx mcg (2,000 unit) capsule clopidogrel 75 mg tablet 75 mg PO DAILY #90 tabs 07/1401/18/25 Rx metoprolol succinate 25 mg 25 mg PO DAILY #30 tabs 07/1401/18/25 Rx tablet,extended release 24 hr insulin degludec 100 unit/mL (3 45 unit SQ HS 11/24/24 01/18/25 History mL) subcutaneous pen (Tresiba FlexTouch U-100 insulin) dapagliflozin propanediol 10 mg 10 mg PO DAILY #90 tab s 12/24/24 01/18/25 Rx tablet (Farxiga) duloxetine 30 mg capsule,delayed 30 mg PO DAILY 01/18/25 History release evolocumab 140 mg/mL subcutaneous 140 mg SQ MONTHLY 01/18/25 History pen injector (Repatha SureClick) furosemide 40 mg tablet 80 mg PO SUTUTH 01/18/2506/13 History furosemide 40 mg tablet (Lasix) 40 mg PO MOWEFRSA 06/1301/18/25 History rivaroxaban 20 mg tablet (Xarelto) 20 mg PO QPMWITHMEA L 01/18/25 01/18/25 History tirzepatide 10 mg/0.5 mL 10 mg SQ WEEKLY 01/18/2506/13 History subcutaneous pen injector (Mounjaro) New Prescriptions to Start Prescriptions: Allergies Allergy/AdvReac Type Severity Reaction Status Date / Time canagliflozin (From Replaced By [facility]) Allergy Severe blisters Verified 12/24/24 13:13 metformin Allergy Mild Diarrhea, Verified 12/24/24 13:13 nausea, dizziness sitagliptin (From Januvia) Allergy Mild Hives Verified 12/24/24 13:13 linaclotide (From Linzess) Allergy Rash Verified 12/24/24 13:13 metronidazole (From Metrogel) Allergy Rash Verified 12/24/24 13:13 nystatin Allergy Dizziness Verified 12/24/24 13:13 rosuvastatin (From Crestor) Allergy Dizziness Verified 12/24/24 13:13 semaglutide (From Ozempic) AdvReac Severe Abdominal Verified 12/24/24 13:13 Pain atorvastatin (From Lipitor) AdvReac Intermediate body aches Verified 12/24/24 13:13 andmental confusion imdur AdvReac Mild headache Uncoded 12/01/24 13:49 Exam Data for Last 24 hours Vital signs and Labs for Last 24 Hours: Temp Pulse Resp BP Pulse Ox O2 Del Method O2 Flow Rate 102.7 F H 90 18 102/50 L 92 L Nasal Cannula 2 01/18/25 02:10 01/18/25 02:10 01/18/25 02:10 01/18/25 02:10 01/18/25 01:30 01/18/25 02:10 01/18/25 02:10 Laboratory Results - last 24 hr 01/18/25 00:35: WBC 28.0 H*, RBC 4.34, Hgb 12.7, Hct 37.7, MCV 86.9, MCH 29.3, MCHC 33.7, RDW 12.9, Plt Count 258, MPV 10.1, Neut % (Auto) 81.5 H, Lymph % (Auto) 3.2 L, [place] % (Auto) 3.8, Eos % (Auto) 0.0 L, Baso % (Auto) 0.6, Neut # (Auto) 22.8 H, Lymph # (Auto) 0.9, Comal # (Auto) 1.1 H, Eos # (Auto) 0.0, Baso # (Auto) 0.2, Total Counted 100, Neutrophils % (Manual) 87 H, Band Neutrophils % 4.0, Lymphocytes % (Manual) 5 L, Monocytes % (Manual) 4, Platelet Estimate Normal, RBC Morphology Normal, Sodium 133 L, Potassium 4.1, Chloride 101, Carbon Dioxide 22, BUN 46 H, Creatinine 1.70 H, Estimated GFR 30 L, Est GFR ( Amer) 36 L, Glucose 220 H, Calcium 8.8, Phosphorus 3.0, Magnesium 1.5 L, Total Bilirubin 2.1 H, AST 25, ALT 19, Alkaline Phosphatase 91, Total Protein 6.9, Albumin 3.6, Lipase 32 01/18/25 00:58: VBG pH 7.41, VBG pCO2 38.1, VBG pO2 37.7, VBG HCO3 23.6, VBG Total CO2 24.8, VBG O2 Saturation 73.7 H, VBG Base Excess -1.0, VBG Lactic Acid 3.1 H 01/18/25 01:13: Urine Color Yellow, Urine Appearance Clear, Urine pH 6.0, Ur Specific Talpa 1.015, Urine Protein Negative, Urine Glucose (UA) 3+, Urine Ketones Negative, Urine Blood Negative, Urine Nitrate Negative, Urine Bilirubin 1+ A, Urine Urobilinogen 0.2, Ur Leukocyte Esterase Negative, Urine RBC None, Urine WBC Occasional, Ur Squamous Epith Cells Occasional, Urine Bacteria Trace I & O for Last 24 hours: Intake & Output 01/15/25 01/16/25 01/17/25 01/18/25 05:59 05:59 05:59 05:59 Intake Total 1000 / 1000 Balance 1000 / 1000 Weight 197 lb Radiology Reports for the Last 24 Hours: Lungs: Right lower lobe infiltrates. Right diaphragm eventration which may be on the basis of volume loss. Pleural spaces: Small right pleural effusion. Heart/Mediastinum: Small hiatal hernia. Cardiomegaly. Vasculature: Atherosclerotic disease of the aortic arch. Bones/joints: Unremarkable. IMPRESSION: Findings suggestive of right lower lobe pneumonia with small parapneumonic effusion. Correlate clinically. Constitutional Constitutional: mild distress, morbidly obese and chronically ill appearing *Routine HEENT Exam Head: Present normocephalic and atraumatic Eye: Present EOMI, PERRL and normal accommodation ENT: Present mucous membranes moist, oropharynx clear (Tongue was dry but there was no redness to the posterior pharynx) and nares patent *Routine Neck Exam Neck: Present supple and full ROM *Routine Respiratory Exam Respiratory: Present CTA bilaterally, normal respiratory effort, able to speak in complete sentences and symmetric chest movement Comments: Patient is on oxygen exam of the lungs found no and then Maris sounds decreased in the right base anterior and posterior but no signs of rhonchi or rails or wheezing *Routine Cardiovascular Exam Cardiovascular: Present murmur (Grade 2/6 to 3/6 systolic) Comments: Irregular pattern on bedside monitor. Question sinus rhythm with a lot of PACs versus A-fib twelve-lead has been ordered *Routine Abdominal Exam Abdominal: Present soft, normoactive bowel sounds and obese Comments: Abdomen was palpated there was no signs of pain or enlarged organs *Routine Rectal Exam Rectal:: deferred *Routine Genitalia Exam Genitalia:: deferred *Routine Extremities Exam Extremities: Present full ROM, pulses intact and normal capillary refill Comments: Patient is able to move all of her limbs very well without any restriction *Routine Skin Exam Skin: Present intact, dry and warm Comments: Did not find any wounds or signs of abnormal bruising *Routine Neurological Exam Neurological: Present alert, oriented X3, CN II-XII intact, normal reflexes, moving all extremities, normal tone, vision grossly intact, hearing grossly intact and normal speech Comments: No neurologic deficit was found. She is a little stone face which may go with some of her mental health issues but she answered questions very well Routine Psychiatric Exam Psychiatric: Present cooperative H&P: Result Impressions 1. Fever possibly right lower lung pneumonia 2. Acute kidney injury may be secondary to dehydration related to vomiting 3. Recent Cologuard returned that is positive has not been worked up 4. Diabetes mellitus with almost normal hemoglobin A1c patient has been insulin-dependent for quite some time 5. Coronary artery disease with history of stenting Imaging and Cardiology Chest x-ray: Additional comments: Lungs: Right lower lobe infiltrates. Right diaphragm eventration which may be on the basis of volume loss. Pleural spaces: Small right pleural effusion. Heart/Mediastinum: Small hiatal hernia. Cardiomegaly. Vasculature: Atherosclerotic disease of the aortic arch. Bones/joints: Unremarkable. IMPRESSION: Findings suggestive of right lower lobe pneumonia with small parapneumonic effusion. Correlate clinically. Assessment and Plan *Assessment and plan (1) Sepsis: Status: Acute Qualifiers: Acute respiratory failure type: with hypoxia Sepsis acute organ dysfunction status: with acute organ dysfunction Sepsis type: sepsis due to unspecified organism Severe sepsis acute organ dysfunction type: acute respiratory failure Severe sepsis shock status: without septic shock Qualified Code(s): A41.9 - Sepsis, unspecified organism; R65.20 - Severe sepsis without septic shock; J96.01 - Acute respiratory failure with hypoxia Category: Medical Code(s): A41.9 - Sepsis, unspecified organism (2) Pneumonia: Status: Acute Qualifiers: Laterality: right Lung location: lower lobe of lung Pneumonia type: due to unspecified organism Qualified Code(s): J18.9 - Pneumonia, unspecified organism Category: Medical Code(s): J18.9 - Pneumonia, unspecified organism (3) CAREY (acute kidney injury): Status: Acute Category: Medical Code(s): N17.9 - Acute kidney failure, unspecified (4) Fever: Status: Acute Qualifiers: Fever type: unspecified Qualified Code(s): R50.9 - Fever, unspecified Category: Medical Code(s): R50.9 - Fever, unspecified (5) Positive colorectal cancer screening using Cologuard test: Status: Acute Category: Medical Code(s): R19.5 - Other fecal abnormalities (6) Weight loss: Status: Acute Category: Medical Code(s): R63.4 - Abnormal weight loss Plan 69-year-old female who presented with shortness of breath, leukocytosis, weakness. Meeting sepsis criteria with white count of 28, heart rate consisten tly 92-1 08, respiratory rate 22, on 2 L oxygen. Remains afebrile. Blood pressure soft but appropriate after fluid resuscitation. Discussed case with ER physician, request admission for management of sepsis and pneumonia. I agreed to admit for further care. Problems addressed as follows: Severe sepsis Pneumonia CAREY -Continue Zosyn 3.375 g every 8 hours, continue vancomycin 1 g daily - White count elevated at 28 on arrival, improved to 25. Hemoglobin 12.7. Repeat CBC, CMP, magnesium ordered for the morning. - Continue supplemental oxygen as needed for goal sats greater 90%. Per my revi ew of chest imaging, x-ray shows right lower lobe pneumonia/airspace disease. - Full respiratory panel negative. - Kidney function abnormal with BUN 42, creatinine 1.4, was 1.7 on admission. Baseline creatinine 0.7; consistent with endorgan damage meeting criteria for severe sepsis - Received sepsis bolus, blood pressure still soft but MAP consistently greater than 65. Will hold on pressors at this time. - Blood cultures pending. Sputum culture pending. Normally hypertensive. Took her blood pressure meds yesterday. Will hold those meds today due to hypotension/severe sepsis. Holding Lasix, losartan, metoprolol, Farxiga. Resume when appropriate. Diabetes: A1c 6.4 the beginning of last month, consistent with well-controlled -Glucose 251 on morning labs - Continue sliding scale insulin and fingersticks ACHS - Resume basal insulin with insulin glargine 30 units nightly, will titrate to home regimen (45units HS) once patient eating CAD: Continue Plavix 75 mg daily Continue flecainide 100 mg twice daily for paroxysmal A-fib Continue Cymbalta 30 mg daily for mood Continue famotidine 20 mg nightly for GERD Full code Xarelto 20 mg daily Diabetic diet
[2025-01-18 02:27] LABS: Anion Gap 14.1 mEq/L (5-15); Carbon Dioxide 22 mmol/L (22.0-30.0)
[2025-01-18 02:28] LABS: Albumin Level 3.6 g/dl (3.5-5.0); Albumin/Globulin Ratio 1.1 (1.1-1.8); Globulin 3.3 g/dL (1.3-3.2)
[2025-01-18] MEDS: ACETAMINOPHEN 325MG TAB 650 MG PO (02:33)
--- NOTE | 2025-01-18 02:38 | PC.NURSE ---
Patient arrived to floor via wheelchair from ED at 02:28.
[2025-01-18] MEDS: VANCOMYCIN/WATER FOR INJ (PEG) 1.75 GM/350 ML PIGGYBACK IV (03:05)
[2025-01-18] MEDS: LACTATED RINGERS 1000ML 1,000 ML 125 ML IV ×2 (03:05→16:20)
--- NOTE | 2025-01-18 03:29 | ECG_ITS ---
APPROVED REPORT Exam: Resting ECG HR:86 bpm ECG Measurements Heart Rate 86 AXES LA 185 P 84 QRSd 115 QRS 75 QT 390 T 27 QTc 433 Conclusion SINUS RHYTHM WITH OCCASIONAL SUPRAVENTRICULAR PREMATURE COMPLEXES INCOMPLETE RIGHT BUNDLE BRANCH BLOCK [90+ ms QRS DURATION, TERMINAL R IN V1/V2, 40+ ms S IN I/aVL/V4/V5/V6] BORDERLINE ECG UNCONFIRMED REPORT Electronically signed by : Michele Ruby MD 01/18/2025 16:39:48
[2025-01-18] MEDS: 0.9 % SODIUM CHLORIDE 1000ML 1,000 ML 500 ML IV (04:20)
[2025-01-18 05:02] LABS: Reflex Lactic Add Lactic Reflex
[2025-01-18] MEDS: humaLOG 100 UNITS/ML 10ML VIAL (SSI) SUBCUT ×4 (05:23→21:54)
[2025-01-18 05:34] LABS: POC Glucose,Bedside 199 gm/dL (70-110)
[2025-01-18 06:03] LABS: VBG HCO3 20.5 mmol/L (23-30); VBG PCO2 31.5 mmol/L (35-51); VBG PH 7.43 mmol/L (7.31-7.41); VBG PO2 243.6 mmol/L (28-40)
[2025-01-18 06:07] LABS: Lactate Venous 2.3 mmol/L (0.4-2.0)
[2025-01-18] MEDS: IPRATROPIUM/ALBUTEROL 3 ML NEB IH ×3 (06:55→18:49)
[2025-01-18 07:54] LABS: Lactic Acid Follow Up (RFLX 1) 2.1 mmol/L (0.7-2.1)
--- NOTE | 2025-01-18 08:01 | PC.NURSE ---
manual bp 78/50, patient feels dizzy sitting on side of the bed, alert and oriented times 4. Patient ambulated to bathroom and did not feel dizzy then. Dr. Esteban aware and order to use existing bag of fluids and run at 500 ml/hr for a bolus
--- NOTE | 2025-01-18 08:40 | EXP.PHA.CONS ---
Pharmacy Consult Date: 01/18/25 Time: 08:41 Referring provider: DR. REDDY Reason for Consult:: VANCOMYCIN DOSING Allergies Allergy/AdvReac Type Severity Reaction Status Date / Time canagliflozin (From Invokana) Allergy Severe blisters Verified 12/24/24 13:13 metformin Allergy Mild Diarrhea, Verified 12/24/24 13:13 nausea, dizziness sitagliptin (From Januvia) Allergy Mild Hives Verified 12/24/24 13:13 linaclotide (From Linzess) Allergy Rash Verified 12/24/24 13:13 metronidazole (From Metrogel) Allergy Rash Verified 12/24/24 13:13 nystatin Allergy Dizziness Verified 12/24/24 13:13 rosuvastatin (From Crestor) Allergy Dizziness Verified 12/24/24 13:13 semaglutide (From Ozempic) AdvReac Severe Abdominal Verified 12/24/24 13:13 Pain atorvastatin (From Lipitor) AdvReac Intermediate body aches Verified 12/24/24 13:13 andmental confusion imdur AdvReac Mild headache Uncoded 12/01/24 13:49 Home Medications ?Medication ?Instructions ?Recorded ?Confirmed ?Type insulin lispro 100 unit/mL 1 sliding scale dose SQ QAC 03/19/23 01/18/25 History subcutaneous pen Diabetes ergocalciferol (vitamin D2) 1,250 1,250 mcg PO WEEKLY #14 caps 08/03/24 01/18/25 Rx mcg (50,000 unit) capsule famotidine 20 mg tablet 20 mg PO HS 08/07/24 01/18/25 History flecainide 100 mg tablet 100 mg PO BID 08/07/24 01/18/25 History memantine 7 mg capsule 7 mg PO DAILY #90 ea 09/16/24 01/18/25 Rx sprinkle,extended release 24hr losartan 50 mg tablet 50 mg PO DAILY #90 tabs 09/17/24 01/18/25 Rx dexlansoprazole 60 mg 60 mg PO DAILY 09/28/24 01/18/25 History capsule,biphase delayed release blood-glucose sensor (Dexcom G7 #14 ea 11/02/24 01/18/25 Rx Sensor device) montelukast 10 mg tablet 10 mg PO HS #90 tabs 11/09/24 01/18/25 Rx (Singulair) cholecalciferol (vitamin D3) 50 50 mcg PO DAILY #90 caps 11/12/24 01/18/25 Rx mcg (2,000 unit) capsule clopidogrel 75 mg tablet 75 mg PO DAILY #90 tabs 11/18/24 01/18/25 Rx metoprolol succinate 25 mg 25 mg PO DAILY #30 tabs 11/18/24 01/18/25 Rx tablet,extended release 24 hr insulin degludec 100 unit/mL (3 45 unit SQ HS 11/24/24 01/18/25 History mL) subcutaneous pen (Tresiba FlexTouch U-100 insulin) dapagliflozin propanediol 10 mg 10 mg PO DAILY #90 tabs 12/24/24 01/18/25 Rx tablet (Farxiga) evolocumab 140 mg/mL subcutaneous See Rx Instructions .Route 12/28/24 01/18/25 Rx pen injector (Repatha SureClick) .COMPLEX #6 mL furosemide 40 mg tablet (Lasix) 40 mg PO DIRECTED #90 tabs 01/04/25 01/18/25 Rx rivaroxaban 20 mg tablet (Xarelto) 20 mg PO DAILY 01/18/25 01/18/25 History tirzepatide 10 mg/0.5 mL 10 mg SQ WEEKLY 01/18/25 01/18/25 History subcutaneous pen injector (Mounjaro) New Prescriptions to Start Prescriptions: Height: 1.65 m Weight: 92.079 kg Laboratory Results:: Laboratory Results - last 24 hr 01/18/25 00:35: WBC 28.0 H*, RBC 4.34, Hgb 12.7, Hct 37.7, MCV 86.9, MCH 29.3, MCHC 33.7, RDW 12.9, Plt Count 258, MPV 10.1, Neut % (Auto) 81.5 H, Lymph % (Auto) 3.2 L, Barnwell % (Auto) 3.8, Eos % (Auto) 0.0 L, Baso % (Auto) 0.6, Neut # (Auto) 22.8 H, Lymph # (Auto) 0.9, Barnwell # (Auto) 1.1 H, Eos # (Auto) 0.0, Baso # (Auto) 0.2, Total Counted 100, Neutrophils % (Manual) 87 H, Band Neutrophils % 4.0, Lymphocytes % (Manual) 5 L, Monocytes % (Manual) 4, Platelet Estimate Normal, RBC Morphology Normal, Sodium 133 L, Potassium 4.1, Chloride 101, Carbon Dioxide 22, Anion Gap 14.1, BUN 46 H, Creatinine 1.70 H, Estimated GFR 30 L, Est GFR ( Amer) 36 L, Glucose 220 H, Calcium 8.8, Phosphorus 3.0, Magnesium 1.5 L, Total Bilirubin 2.1 H, AST 25, ALT 19, Alkaline Phosphatase 91, Total Protein 6.9, Albumin 3.6, Globulin 3.3 H, Albumin/Globulin Ratio 1.1, Lipase 32 01/18/25 00:55: Chlamy pneumoniae PCR Not detected, Adenovirus (PCR) Not detected, B. pertussis DNA (PCR) Not detected, Coronavirus OC43 (PCR) Not detected, Coronavirus HKU1 (PCR) Not detected, Coronavirus 229E (PCR) Not detected, SARS-CoV-2 (PCR) Not detected, Coronavirus NL63 (PCR) Not detected, Human Metapneumovir PCR Not detected, Influenza A (H1) PCR Not detected, Influ A (H1N1/09) PCR Not detected, Influenza A (H3) PCR Not detected, Influenza Type A (PCR) Not detected, Influenza Type B (PCR) Not detected, M. pneumoniae (PCR) Not detected, Parainfluenza 1 (PCR) Not detected, Parainfluenza 2 (PCR) Not detected, Parainfluenza 3 (PCR) Not detected, Parainfluenza 4 (PCR) Not detected, RSV (PCR) Not detected, Entero/Rhino (PCR) Not detected 01/18/25 00:58: VBG pH 7.41, VBG pCO2 38.1, VBG pO2 37.7, VBG HCO3 23.6, VBG Total CO2 24.8, VBG O2 Saturation 73.7 H, VBG Base Excess -1.0, VBG Lactic Acid 3.1 H 01/18/25 01:13: Urine Color Yellow, Urine Appearance Clear, Urine pH 6.0, Ur Specific Branford 1.015, Urine Protein Negative, Urine Glucose (UA) 3+, Urine Ketones Negative, Urine Blood Negative, Urine Nitrate Negative, Urine Bilirubin 1+ A, Urine Urobilinogen 0.2, Ur Leukocyte Esterase Negative, Urine RBC None, Urine WBC Occasional, Ur Squamous Epith Cells Occasional, Urine Bacteria Trace 01/18/25 05:14: POC Glucose 199 H 01/18/25 05:48: VBG pH 7.43 H, VBG pCO2 31.5 L, VBG pO2 243.6 H, VBG HCO3 20.5 L, VBG Total CO2 21.5 L, VBG O2 Saturation 99.5 H, VBG Base Excess -3.7 L, VBG Lactic Acid 2.3 H 01/18/25 06:42: Lactate 2.1 Medical History: Medical History (Updated 01/18/25 @ 02:48 by Debbi Ahumada RN) Mini stroke Ganglion cyst of hand tendon excised Irritable bowel syndrome with mixed bowel habits Colon cancer screening Breast cancer screening by mammogram Diabetes mellitus Upper abdominal pain Abnormal echocardiogram Interatrial cardiac shunt Angina pectoris Wellness examination Memory loss CVA (cerebral vascular accident) Chest pain Body mass index (BMI) of 40.1 to 44.9 in adult Family history of Chester's disease Ganglion cyst of left foot Typical angina Diabetic gastroparesis Vomiting Bilateral impacted cerumen Pain, gastric Gastritis Cholelithiasis Gallstones Gastroparesis Dyspnea Chest pain Onychoincurvatum Onychodystrophy Trigger finger of right hand Tendinitis of right peroneus brevis tendon Foot pain, right Insulin dependent diabetes mellitus with complications Plantar fasciitis, left Foot pain, left Onychogryposis of toenail Asymptomatic hypertension Dizziness Chest pain Epigastric abdominal pain Dehydration Abnormal cardiovascular stress test Low blood pressure reading Atypical chest pain Myalgia due to statin Fracture of fifth metatarsal bone of right foot with delayed healing Cardiac arrhythmia Sinus bradycardia Back pain Obesity, Class III, BMI 40-49.9 (morbid obesity) Labile essential hypertension TOMAS (obstructive sleep apnea) Ear itching Allergic rhinitis Breast cyst Ganglion cyst Dermoid cyst of head Diabetes mellitus, type 2 Neck pain Moderate mitral regurgitation Mood disorder Obesity HTN (hypertension) COPD (chronic obstructive pulmonary disease) GERD (gastroesophageal reflux disease) Neuropathy Anxiety Restless leg syndrome Assessment and Plan Assessment and plan all Dx Assessment and Plan for all problems:: Pharmacokinetic dosing service Objective: Patient: Floor: Age: 69 yo Serum creatinine: 1.7 mg/dL Height: 65.0 Inches Weight (kg): 92 Diagnosis: Relevant medical/social history: Cultures and sensitivities: Other labs: Assessment: IBW (kg): 57.00 Dosing wt(kg): 92 Estimated Creatinine clearance (ml/min): 27.3 CRCL method: Cockcroft and Gault using ibw(default). Drug selected: Vancomycin Loading dose (mg): 0 Vd (liters): 64.4 (factor used: 0.7 L/kg) Claudy (hr-1): 0.027 Half life (hrs): 25.67 Recommended dose: 1000 mg Interval: 24 hrs Infusion time (hrs): 2.0 Predicted peak (mcg/mL): 31.7 Predicted trough (mcg/mL): 17.50 Total body weight is being used for vancomycin dosing. Recommendations: Give Vancomycin 1000 mg q 24 hrs with an expected Cpeak of 31.7 mcg/ml and an expected Ctrough of 17.50 mcg/ml ----Vanco only - ignore for aminoglycosides----- CLvanco= 1.74 L/hr AUC 0-24 /SHAYNA Data: SHAYNA 0.5 mcg/mL: AUC/SHAYNA: 1149.4 SHAYNA 1.0 mcg/mL: AUC/SHAYNA: 574.7 --------- SHAYNA 1.5 mcg/mL: AUC/SHAYNA: 383.1 SHAYNA 2.0 mcg/mL: AUC/SHAYNA: 287.4
[2025-01-18 09:17] LABS: Reflex Lactic (2 hrs) Add Lactic Reflex
[2025-01-18 09:22] LABS: POC Glucose,Bedside 264 gm/dL (70-110)
[2025-01-18 10:04] LABS: Hematocrit 38.8 % (37.0-47.0); Hemoglobin 12.7 g/dL (12.2-16.2); Immature Granulocytes % 4.9 %; Mean Corpuscular HGB Conc 32.7 g/dL (31.8-35.4); Mean Corpuscular Hemoglobin 29.1 pg (27.0-31.2); Mean Corpuscular Volume 88.8 fl (81-99); Nucleated Red Blood Cells % 0 %; Platelet Count 246 K/mm3 (142-424); Red Blood Count 4.37 M/mm3 (4.20-5.40); Red Cell Distribution Width-SD 42.7 fL; White Blood Count 25.0 K/mm3 (4.8-10.8)
[2025-01-18 10:08] LABS: Lactic Acid Follow up (RFLX 2) 2.1 mmol/L (0.7-2.1)
[2025-01-18 10:13] LABS: Albumin Level 3.1 g/dl (3.5-5.0); Chloride 104 mmol/L (98-107); Potassium 3.6 mmoL/L (3.5-5.1); Sodium 134 mmol/L (136-145)
[2025-01-18 10:15] LABS: Anion Gap 11.6 mEq/L (5-15); Blood Urea Nitrogen 42 mg/dl (7-17); Carbon Dioxide 22 mmol/L (22.0-30.0); Creatinine Clearance Estimated 54 mL/min (50-200); Creatinine,Serum 1.40 mg/dl (0.52-1.04); Estimated Glomerular Filt Rate 37 ml/min (>60); GFR (African American) 45 ML/MIN (>60)
[2025-01-18 10:16] LABS: Alanine Aminotransferase 18 U/L (12-78); Albumin/Globulin Ratio 1.0 (1.1-1.8); Alkaline Phosphatase 86 U/L (38-126); Aspartate Amino Transferase 24 U/L (14-36); Bilirubin,Total 1.4 mg/dl (0.2-1.3); Calcium 8.5 mg/dl (8.4-10.2); Globulin 3.0 g/dL (1.3-3.2); Glucose 251 mg/dl (74-100); Magnesium 1.6 mg/dl (1.6-2.3); Total Protein,Serum 6.1 g/dl (6.3-8.2)
[2025-01-18] MEDS: PIPERACILLIN/TAZO 3.375 GM in 0.9 % SODIUM CHLORIDE 50 ML IV ×2 (10:22→15:40)
--- NOTE | 2025-01-18 10:29 | PC.NURSE ---
blood pressure improved but pt still dizzy, aware. ordered to finish 500 ml bag of normal saline at 250 ml/hr
[2025-01-18 10:31] LABS: Total Cells Counted 100
[2025-01-18 10:32] LABS: RBC Morphology Normal
--- NOTE | 2025-01-18 11:12 | HMH.PHAINT1 ---
Pharmacy Intervention Comments: MED LIST COMPARED TO FILL HX AND MD OFFICE
[2025-01-18] MEDS: MAGNESIUM SULFATE IN WATER 2 GM/50 ML PIGGYBACK IV ×2 (11:30→13:18)
[2025-01-18] MEDS: SODIUM CHLORIDE 3% 15ML NEB 3 ML IH (12:01)
[2025-01-18 16:39] LABS: POC Glucose,Bedside 178 gm/dL (70-110)
[2025-01-18 16:39] LABS: POC Glucose,Bedside 218 gm/dL (70-110)
--- NOTE | 2025-01-18 16:58 | PC.NURSE ---
BP improved with fluids during shift, patient alert and oriented times 4 but still complains about some dizziness. Lung sounds diminished and patient weaned to room air.
--- OUTSIDE RECORDS SUMMARY | 2025-01-18 17:20 | XMS_ITS | Clinical Summary ---
Author Organization [facility] Address [address] [address] Care Team Providers Care Leather Tacker Name Role Phone Pcp, Pending Only MD Primary Care Provider Urszula Sanderson DO Unavailable [phone] Social History Tobacco Use Types Packs/Day Years [...] to Health Maintenance Insurance MEDICARE on file [facility] MEDICARE REPLACEMENT Care Teams Leather Tacker Relationship Specialty Start Date End Date Pcp, Pending Only, [place], [place] [id number] PCP - General Internal Medicine 08/17/19 [place] [address] [place] [address] 08/17/19
--- OUTSIDE RECORDS SUMMARY | 2025-01-18 17:20 | XMS_ITS | Encounter Summary ---
Author Organization [facility] Address [address] [place] [address], [address] [place] [address] Care Team Providers Care Visual Education Teacher Name Role Phone Alice Rutledge APRN, CNP Primary Care Prov ider Encounter Details Date Type Department Care Team (Late st Contact Info) Description 05/24/2019 FollowUp Telephone Encounter [facility] [address] [place] [address] Tracy Jara Social History Tobacco Use Types [...] documented as of this encounter Care Teams Visual Education Teacher Relationship Specialty Start Date End Date Alice Rutledge APRN - CNP [address] [address] PCP - General Family Nurse Practitioner 05/19/19 documented as of this encounter
--- OUTSIDE RECORDS SUMMARY | 2025-01-18 17:20 | XMS_ITS | Encounter Summary ---
Author Organization [facility]o G[facility] Address [address] [place] [address], [address] [place] [address] Care Team Providers Care Family Psychologist Name Role Phone Alice Rutledge APRN, CNP Primary Care Prov ider Encounter Details Date Type Department Care Team (Late st Contact Info) Description 05/24/2019 FollowUp Telephone Encounter [facility] [address] [place] [address] Tracy Jara Social History Tobacco Use Types [...] documented as of this encounter Care Teams Family Psychologist Relationship Specialty Start Date End Date Alice Rutledge APRN - CNP [address] [address] PCP - General Family Nurse Practitioner 05/19/19 documented as of this encounter
--- OUTSIDE RECORDS SUMMARY | 2025-01-18 17:20 | XMS_ITS | Encounter Summary ---
Author Organization [facility] Address [address] [place] [address] Care Team Providers Care Entry Level Accountant Name Role Phone Reva Lou Primary Care Provider Encounter Details Date Type Department Care Team (Late st Contact Info) Description 12/06/2020 Community [facility] [address] [place] [address] Reva Lou PA [address] [place] [address] Lupus (CMS/HCC) (Primary Dx) Social [...] erythematosus documented in this encounter Care Teams Entry Level Accountant Relationship Specialty Start Date End Date Reva Lou PA [address] [place] [address] PCP - General 09/30/20 documented as of this encounter
--- OUTSIDE RECORDS SUMMARY | 2025-01-18 17:20 | XMS_ITS | Clinical Summary ---
Author Organization [facility] Address [address] [place] [address] Care Team Providers Care Spinner Hydraulic Name Role Phone Reva Lou JAMES Primary Care Provider [phone] Allergies Active Allergy Reactions Criticality Noted Date [...] 12/28/2020 Active ergocalciferol (Vitamin D-2) 1.25 MG (86168 UT) capsule Take 1 capsule (50,000 Units) [...] place to sleep or slept in a fpc (including now)? No 03/20/2024 Utilities Answer Date [...] (2 - Td or Tdap) 06/18/2022 06/18/2012 [id number] Vaccine ( - season) 2024 UKY-Diabetes: Hemoglobin [...] Adults <6.0% Children and Adolescents <7.5% Source: [place] [employer]. Standards of medical care in diabetes,2017. Diabetes Care.2017:40 (suppl 1):S1-S135. HbA1c assay performed by an ion-exchange chromatography method that is certified traceable to the DCCT. Santhosh Swenson MD LAB BLOOD ORDERABLES Final R esult [facility] [address] [place] [address] * Hepatitis C Antibody - ED (03/19/2024 12:44 PM EDT) Hepatitis C Antibody Negative Negative 03/19/2024 2:20 PM EDT [facility] Blood Venous blood specimen / Unknown Venipuncture / Unknown 03/19/2024 12:44 PM EDT 03/19/2024 1:29 PM EDT us Zaki Murguia MD LAB BLOOD ORDERABLES Final Resul t Performing Organization Address City/[facility] Co de Phone Number [facility] [address] [place] [address] from Last 3 Months or Most Recently Relevant to Health Maintenance Insurance [facility] MEDICARE [facility] MEDICAID SIMMS Advance Directives * Full Code (Latest Code Status on File) Date Activated Date Inactivated Comments 03/19/2024 1:31 PM 03/20/2024 8:13 PM Question Answer Comments Patient has decision-making capacity? Yes Care Teams Spinner Hydraulic Relationship Specialty Start Date End Date Reva Lou PA [address] [place] [address] PCP - General 09/30/20
--- OUTSIDE RECORDS SUMMARY | 2025-01-18 17:20 | XMS_ITS | Encounter Summary ---
Author Organization [facility] Address [address] [place] [address] Care Team Providers Care Stroke Belt Sander Operator Name Role Phone Nonstaff, Moise LOCKWOOD Primary Care Provider [phone] Alice Rutledge Primary Care Provider Michelle Solomon MD Unavailable [phone] Michelet Gutierrez MD Unavailable [phone] Gianni Jara MD Unavailable [phone] Christine Blank NP Unavailable Unavailable Encounter Details Date Type Department Care Team (Late st Contact Info) Description 05/27/2019 Abstract [facility] - Heart & Vascular, [address] [place] [address] Gianni Jara MD [address] [address] Social History Tobacco Use Types Packs/Day Years [...] on filedocumented in this encounter Care Teams Stroke Belt Sander Operator Relationship Specialty Start Date End Date Moise Garcia MD PCP - General 06/05/19 06/22/19 Alice Rutledge PCP - General Nurse Practitioner 06/23/19 Michelle Solomon MD [address] [place] [address] Medical Oncology 07/15/19 Michelet Gutierrez MD [address] [place] [address] Pulmonary Disease 07/15/19 Gianni Jara MD [address] [facility] [address] [place] [id number] Cardiology 07/15/19 Christine Blank NP [address] [facility] [address] [place] [address] Nurse Practitioner Sleep Medicine 07/15/19 documented as of this encounter
--- OUTSIDE RECORDS SUMMARY | 2025-01-18 17:20 | XMS_ITS | Encounter Summary ---
Author Organization [facility] Address [address] [place] [address], [address] [place] [address] Care Team Providers Care Ethnoarchaeologist Name Role Phone Alice Rutledge APRN - MANUFACTURING CHIEF ENGINEER Primary Care Prov ider Reason for Visit * Reason Comments Medication Refill Encounter Details Date Type Department Care Team (Late st Contact Info) Description 10/19/2019 Refill [facility] Endocrinology [address] [place] [address] Aria Villarreal MD [address] [place], [place] [phone] Medication Refill Social History Tobacco Use Types [...] than three times a week 08/06/2019 Attends [employer] Not on file 08/05 Active Member [...] documented as of this encounter Care Teams Ethnoarchaeologist Relationship Specialty Start Date End Date Alice Rutledge, TIMBER MANAGEMENT ASSISTANT - MANUFACTURING CHIEF ENGINEER [address] [place] [address] PCP - General Family Nurse Practitioner 05/19/19 documented as of this encounter
--- OUTSIDE RECORDS SUMMARY | 2025-01-18 17:20 | XMS_ITS | Encounter Summary ---
Author Organization Marcelo Gotti [facility] Address [address] [place] [address], [address] [place] [address] Care Team Providers Care Diecast Machine Operator Name Role Phone Alice Rutledge APRN, CNP Primary Care Prov ider Encounter Details Date Type Department Care Team (Late st Contact Info) Description 05/22/2019 FollowUp Telephone Encounter [facility] [address] [place] [address] Tracy Jara Social History Tobacco Use Types [...] documented as of this encounter Care Teams Diecast Machine Operator Relationship Specialty Start Date End Date Alice Rutledge APRN - CNP [address] [address] PCP - General Family Nurse Practitioner 05/19/19 documented as of this encounter
--- OUTSIDE RECORDS SUMMARY | 2025-01-18 17:20 | XMS_ITS | Encounter Summary ---
Author Organization [facility] Address [address] [place] [address], [address] [place] [address] Care Team Providers Care Endodontic Assistant Name Role Phone Alice Rutledge APRN - CONSUMER SERVICES ADVISOR Primary Care Prov ider Reason for Visit * Reason Comments Medication Refill Encounter Details Date Type Department Care Team (Late st Contact Info) Description 11/05/2019 Refill [facility] Endocrinology [address] [place] [address] Aria Villarreal MD [address] [place], [place] [id number] Medication Refill Social History Tobacco Use Types [...] than three times a week 08/06/2019 Attends [employer] Not on file 08/05 Active Member [...] documented as of this encounter Care Teams Endodontic Assistant Relationship Specialty Start Date End Date Alice Rutledge, PRODUCT MARKETING CONSULTANT - CONSUMER SERVICES ADVISOR [address] [address] PCP - General Family Nurse Practitioner 05/19/19 documented as of this encounter
--- OUTSIDE RECORDS SUMMARY | 2025-01-18 17:20 | XMS_ITS | Referral Summary ---
Author Organization [facility] Address [address] [facility] [place] [address] Care Team Providers Care Pipe Chipper Name Role Phone Pcp, Pending Only MD Primary Care Provider Kin Urszula DO Unavailable [phone] Social History Tobacco Use Types Packs/Day Years [...] to Health Maintenance Insurance MEDICARE on file [facility] MEDICARE REPLACEMENT Care Teams Pipe Chipper Relationship Specialty Start Date End Date Pcp, Pending Only, [place], [place] [id number] PCP - General Internal Medicine 08/17/19 [place] [address] [place] [address] 08/17/19
--- OUTSIDE RECORDS SUMMARY | 2025-01-18 17:21 | XMS_ITS | Encounter Summary ---
Author Organization [facility] Address [address] [place] [address], [address] [place] [address] Care Team Providers Care State Fire Marshal Name Role Phone Alice Rutledge APRN - LEXY Primary Care Prov ider Reason for Visit * Reason Onset Date Comments Medication Refill 07/27/2019 Encounter Details Date Type Department Care Team (Late st Contact Info) Description 07/27/2019 Refill [facility] [address] [facility] [address] [place] [address] Alice Rutledge, CAITLYN - ADVERTISING EXECUTIVE [address] [facility] [address] [place] [address] Medication Refill Social History Tobacco Use Types [...] documented as of this encounter Care Teams State Fire Marshal Relationship Specialty Start Date End Date Alice Rutledge, ASPHALT PAVING SUPERINTENDENT - ADVERTISING EXECUTIVE [address] [place] [address] PCP - General Family Nurse Practitioner 05/19/19 documented as of this encounter
--- OUTSIDE RECORDS SUMMARY | 2025-01-18 17:21 | XMS_ITS | Clinical Summary ---
Author Organization [facility] Address [address] [place] [address] Care Team Providers Care Video Camera Operator Name Role Phone Damaso Radha CAITLYN Primary Care Provider Social History Tobacco Use Types Packs/Day Years [...] SCREENING Completed 03/19/2024, 019 Insurance [facility] MEDICARE ADVANTAGE SNP PPO Care Teams Video Camera Operator Relationship Specialty Start Date End Date Radha Petit APRN [address] [facility] [place] [place] [address] PCP - General Family Medicine 08/18/24
--- OUTSIDE RECORDS SUMMARY | 2025-01-18 17:21 | XMS_ITS | Clinical Summary ---
Author Organization [facility] Address [address] [place] [address] Care Team Providers Care Merchandise Planner Name Role Phone Alice Rutledge Primary Care Provider [phone] Michelle Solomon MD Unavailable [phone] Michelet Gutierrez MD Unavailable [phone] Gianni Jara MD Unavailable [phone] Christine Blank NP Unavailable Unavailable Allergies Active Allergy Reactions Criticality Noted Date Comments Canagliflozin 08/01/2018 Other reaction(s): Unknown Linaclotide 03/03/2019 Metronidazole 03/03/2019 Nystatin 03/03/2019 dizziness Obxjuna-Qff-Qgu Reductase Inhibitors 08/01/2018 Other reaction(s): Unknown Medications [...] flutter 06/05/2019 Coronary artery disease invo lving [place] coronary artery of [place] heart without angina pectoris 06/05/2019 Essential hypertension [...] Comments Father alzheimer alzheimer Mother (Age 67) [place] Social History Tobacco Use Types Packs/Day Years [...] LAB Albumin/Globulin Ratio 1.3 1.0 - 2.1 [facility] BUN/Creatinine Ratio 23 [facility] Serum (Serum) 07/13/2019 11: 32 AM EST 07/13/2019 4:35 PM EST Marguerite Bernal CHEMISTRY ORDERABLES Final Resul t [facility] [address] [place] [address], [facility] from Last 3 Months or Most Recently Relevant to Health Maintenance Insurance [facility] HEALTH DUAL OTHO MEDICAID OTHO MEDICAID [facility] DUAL OTHO MEDICAID [facility] DUAL OTHO MEDICAID OTHO MEDICAID Care Teams Merchandise Planner Relationship Specialty Start Date End Date Alice Rutledge PCP - General Nurse Practitioner 06/23/19 Michelle Solomon MD [address] [place] [address] Medical Oncology 07/15/19 Michelet Gutierrez MD [address] [place] [address] Pulmonary Disease 07/15/19 Gianni Jara MD [address] [facility] [address] [place], [place] [phone] Cardiology 07/15/19 Christine Blank NP [address] [facility] [address] [place] [address] Nurse Practitioner Sleep Medicine 07/15/19
--- OUTSIDE RECORDS SUMMARY | 2025-01-18 17:21 | XMS_ITS | Encounter Summary ---
Author Organization [facility] Address [address] [place] [id number] Care Team Providers Care Cork Mixer Name Role Phone Alice Rutledge Primary Care Provider Michelle Solomon MD Unavailable [phone] Michelet Gutierrez MD Unavailable [phone] Gianni Jara MD Unavailable [phone] Christine Blank NP Unavailable Unavailable Encounter Details Date Type Department Care Team (Late st Contact Info) Description 07/13/2019 Orders Only Laboratory [address] [place] [address] Marguerite Bernal [address] [place] [address] Flank pain (Primary Dx) Social History Tobacco [...] LAB CO2 28 22 - 29 mmol/L [facility] EXTERNAL LAB Anion Gap 14(H) 5 - 13 mmol/L [facility] EXTERNAL LAB Comment:Anion gap calculatio n does not include potassium (K+) value. BUN 22 7 - 25 mg/dL [facility] EXTERNAL LAB Creatinine 0.96 0.50 - 1.20 [...] [email or web address] Calcium 9.4 8.4 - 10.5 mg/dL [facility] EXTERNAL LAB GFR MDRD Non Af Amer 58 See Note [facility] EXTERNAL LAB Comment: GFR is estimated using Creatinine, age, gender and race. Patient's values should be interpreted as a trend. Between 30 and 90 ml/min/1.73m2, clinical correlation is needed. For additional information: [email or web address] Total Bilirubin 0.2 0.2 - 1.2 mg/dL [facility] EXTERNAL LAB AST 16 0 - 30 U/L [facility] EXTER NAL LAB ALT 17 0 - 40 U/L [facility] EXTER NAL LAB Alkaline Phosphatase 110 33 - 140 U/L [facility] EXTERNAL LAB Total Protein 7.2 6.0 - 8.0 g/dL [facility] EXTERNAL LAB Albumin 4.0 3.5 - 5.0 g/dL [facility] EXTERNAL LAB Globulin 3.2 2.0 - 3.7 g/dL [facility] EXTERNAL LAB Albumin/Globulin Ratio 1.3 1.0 - 2.1 [facility] EXTERNAL LAB BUN/Creatinine Ratio 23 [facility] EXTERNAL LAB Serum (Serum) 07/13/2019 11: 32 AM EST 07/13/2019 4:35 PM EST Marguerite Bernal CHEMISTRY ORDERABLES Final Resul t [facility] EXTERNAL [facility] [address] documented in this encounter Visit Diagnoses Diagnosis Flank pain- Primary Abdominal pain, unspecified site documented in this encounter Care Teams Cork Mixer Relationship Specialty Start Date End Date Alice Rutledge PCP - General Nurse Practitioner 06/23/19 Michelle Solomon MD [address] [place] [address] Medical Oncology 07/15/19 Michelet Gutierrez MD [address] [facility] [address] Pulmonary Disease 07/15/19 Gianni Jara MD [address] [facility] [address] [place] [phone] Cardiology 07/15/19 Christine Blank NP [address] [address] Nurse Practitioner Sleep Medicine 07/15/19 documented as of this encounter
--- OUTSIDE RECORDS SUMMARY | 2025-01-18 17:21 | XMS_ITS | Clinical Summary ---
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 Name Role Phone Aamir Alice Eller APRN - RECORD PRESS TENDER Primary Care Prov ider Allergies Active Allergy [...] s:Uncontrolled type 2 diabetes mellitus with hyperglycemia ([facility]),Morbid obesity due to excess calories ([facility]),Neuropathy due to type 2 diabetes mellitus ([facility]) Take 1 capsule by mouth nightly for [...] complication, with long-term current use of insulin ([facility]) Inject 1 pen into the skin daily 100 each 1 Active ondansetron (ZOFRAN-ODT) [address] 1 tablet under the tongue daily as needed for Nausea 30 tablet Active vitamin D (CHOLECALCIFEROL) [address] UNIT CAPSIndications:V itamin D deficiency Take 1 capsule by mouth once a week 12 capsule 1 020 Active metFORMIN (GLUCOPHAGE) 1000 MG tabletIndications :Type 2 diabetes mellitus with complication, with long-term current use of insulin ([facility]) Take 1 tablet by mouth 2 times [...] original. Es Mari RN Clinical Performance Nurse [facility] [phone] BPCI-A Patient, will follow for the next [...] disorder) 04/21/2019 Coronary artery disease invo lving [place] coronary artery of [place] heart without angina pectoris 03/04/2019 Neuropathy 03/03/2019 Blockage of coronary artery of heart 02/16/2019 Depression 10/06/2018 Type 2 diabetes mellitus wit h complication, with long-term current use of insulin 10/06/2018 Overview (10/06/2018): dx for 5 years-2013? Gastroesophageal reflux disease 10/06/2018 Personal history of colon cancer 10/06/2018 Mixed hyperlipidemia 10/06/2018 Overview (03/03/2019): Patient is supposed to be on Gemfibrozil 600 mg twice daily per [facility] note from last PCP in [place], [place] on 07/24/2018 PAF (paroxysmal atrial fibrillation) [...] than three times a week 08/06/2019 Attends [employer] Not on file 08/05 Active Member [...] 11:02 PM 08/04/2018 6:42 PM Care Teams Woodworking Machinist Relationship Specialty Start Date End Date Alice Rutledge, EXECUTIVE CREATIVE DIRECTOR - RECORD PRESS TENDER [address] [place] [address] PCP - General Family Nurse Practitioner 05/19/19
[2025-01-18 21:42] LABS: POC Glucose,Bedside 168 gm/dL (70-110)
[2025-01-18] MEDS: INSULIN GLARGINE 100 UNITS/ML 3ML FLEXPEN 30 UNIT SUBCUT (21:53)
[2025-01-18] MEDS: FLECAINIDE 50MG TABLET 100 MG PO (21:55)
[2025-01-18] MEDS: PANTOPRAZOLE 40MG TABLET 40 MG PO (21:55)
[2025-01-18] MEDS: FAMOTIDINE 20MG TABLET 20 MG PO (21:55)
[2025-01-19] VITALS (11 sets, daily range): BP systolic 97–137; BP diastolic 54–73; PULSE 90–125; RESP 16–20; TEMP 36.6–36.9; O2SAT 92–98; BMI 34.6
[2025-01-19] MEDS: PIPERACILLIN/TAZO 3.375 GM in 0.9 % SODIUM CHLORIDE 50 ML IV ×3 (00:07→16:41)
[2025-01-19] MEDS: LACTATED RINGERS 1000ML 1,000 ML 125 ML IV (00:08)
[2025-01-19 05:59] LABS: Hematocrit 34.1 % (37.0-47.0); Hemoglobin 11.6 g/dL (12.2-16.2); Immature Granulocytes % 0.3 %; Mean Corpuscular HGB Conc 34.0 g/dL (31.8-35.4); Mean Corpuscular Hemoglobin 29.6 pg (27.0-31.2); Mean Corpuscular Volume 87.0 fl (81-99); Nucleated Red Blood Cells % 0 %; Platelet Count 228 K/mm3 (142-424); Red Blood Count 3.92 M/mm3 (4.20-5.40); Red Cell Distribution Width-SD 41.8 fL; White Blood Count 18.8 K/mm3 (4.8-10.8)
[2025-01-19 06:06] LABS: POC Glucose,Bedside 136 gm/dL (70-110)
[2025-01-19 06:07] LABS: Alanine Aminotransferase 13 U/L (12-78); Albumin Level 2.8 g/dl (3.5-5.0); Albumin/Globulin Ratio 0.9 (1.1-1.8); Alkaline Phosphatase 93 U/L (38-126); Anion Gap 8.5 mEq/L (5-15); Aspartate Amino Transferase 19 U/L (14-36); Bilirubin,Total 0.8 mg/dl (0.2-1.3); Blood Urea Nitrogen 26 mg/dl (7-17); Calcium 8.2 mg/dl (8.4-10.2); Carbon Dioxide 24 mmol/L (22.0-30.0); Chloride 107 mmol/L (98-107); Creatinine Clearance Estimated 77 mL/min (50-200); Creatinine,Serum 0.90 mg/dl (0.52-1.04); Estimated Glomerular Filt Rate 62 ml/min (>60); GFR (African American) 75 ML/MIN (>60); Globulin 3.0 g/dL (1.3-3.2); Glucose 129 mg/dl (74-100); Magnesium 2.3 mg/dl (1.6-2.3); Potassium 3.5 mmoL/L (3.5-5.1); Sodium 136 mmol/L (136-145); Total Protein,Serum 5.8 g/dl (6.3-8.2)
--- NOTE | 2025-01-19 06:56 | PC.NURSE ---
Pt slept most of the night. She refused the Breathing treatment at midnight and at 6 am.. I explained to her they were very important. DANIEL LE RN
--- NOTE | 2025-01-19 07:00 | PC.NURSE ---
Phoned Dr Robel Campbell I was called at 659 critical troponin at 2.12. He is having the Pt be seen By cardiology today. DANIEL LE RN.
[2025-01-19] MEDS: CLOPIDOGREL 75MG TAB 75 MG PO (09:41)
[2025-01-19] MEDS: VANCOMYCIN HCL 1,000 MG in 0.9 % SODIUM CHLORIDE 250 ML 125 MG IV (09:41)
[2025-01-19] MEDS: FLECAINIDE 50MG TABLET 100 MG PO ×2 (09:41→20:34)
--- NOTE | 2025-01-19 10:11 | SW/DCPLANNER ---
I spoke w/ patient regarding plans once medically stable for discharge. PT/OT evaluated patient and stated that she is independent w/ all care. Patient voiced that she does not feel safe at home due to living w/ her daughter and she recently had a gentleman visit from [facility]. Patient stated that her and her daughter share this house. I did explain to patient that she is independent w/ therapy but we could look into Personal Care vs LTC under Medicaid. Patient is not interested in either option due to Medicaid and not willing to give up monthly income all but $40. I did explain to patient that if she does not feel safe this would be her best option or a intermediate. Patient voiced the gentleman did leave to return to [facility] yesterday and she would like to return home. I did inform patient that she could contact me at [facility] in the future and I could assist w/ placement if needed. Patient does not have any further concerns/questions at this time. CM will continue to follow up.
--- NOTE | 2025-01-19 10:13 | HMH.PTEV ---
Physical Therapy Evaluation Rehab PT IP Evaluation Start: 01/19/25 07:43 Freq: ONCE Status: Active Protocol: Document 01/19/25 10:06 RAHAT (Rec: 01/19/25 10:13 RAHAT [id number]) Subjective/History History History Per H&P: Patient has been ill since Saturday., She states she has not done any travel or been around large groups of people or any sick people with any illness. She has developed a temperature and now has a significantly elevated white count. Has a long history of mental illness being treated on several different medications. But she was able to answer questions well and gave me a fairly good history. Patient also noted that she just recently received the results of her Cologuard back and that it was positive. Noting that the patient was approximately 250 pounds about a year ago she is down to 197 down 53 pounds and just more than a year. Noting that the patient is diabetic and that her hemoglobin A1c per past records have been in the mid 6 range. Chest x-ray shows possible right lower lung pneumonia. Patient shows the fact that she is on oxygen at this point in time that she says she does not use at home. Stated that she is not a smoker but does not get COVID or influenza vaccination. I have excepted the patient be admitted on the floor pharmacy consult continue vancomycin also continue Zosyn.. Will place the patient on cardiac monitoring and continuous pulse ox.. Also will get a twelve-lead EKG to verify that the patient still is in atrial fibs. Monitor in room looks almost normal sinus with a lot of PACs and is perfusing very well.. Subjective Subjective Pt reports she lives with her grand-daughter who works ~once weekly. Pt lives in a single-story home with 4 SARAH. Pt normally IND with all mobility without AD use. Pt no longer drives. Pt's granddaughter and grandson drive her as needed. Pt denies any falls in the past month. [facility] How much help from another person do you currently need... Turning from your None back to your side while in a flat bed without using bedrails? Moving from lying on None back to sitting on the side of a flat bed without using bedrails? Moving to and from a None bed to a chair ( including a wheelchair)? Standing up from a None chair using your arms? (e.g., wheelchair, bedside chair) Walking in hospital None room? Climbing 3-5 steps A little with a railing? Mobility Score 23 Mobility Level [facility] Mobility 7 Walk 25 feet or more Mobility Calculator Rehab PT IP Eval Objective Appearance Patient Behavior Appropriate,Cooperative Patient Orientation Person,Place,Situation Difficulty following none instructions Speech Pattern Clear Ambulation Patient Able to Yes Ambulate Ambulation Observation IP General Gait Wide Based Gait Pattern Observation Ambulation Distance 40 (feet) Ambulation Assistive None Device Ambulation Ability Supervision/Stand by Balance Ability to Arise Able, uses arms to help Sitting Balance Steady, safe Standing Balance Steady, wide stance Dynamic Sitting Good Balance Ability Dynamic Standing Fair Balance Ability Transfers Bed Transfer Ability Independent Sit to Stand Bed Independent Transfer Ability Rehab PT IP prob,goals,plan Problems Date of Evaluation: 01/19/25 Rehab Potential Rehab Potential Innapropriate for Skilled Therapy Discharge Plan PT Discharge Plan Pt most appropriate to d/c home when deemed medically necessary d/t current level of mobility, home set-up, and family support. Pt not appropriate for skilled acute care PT at this time d/t pt?s mobility being at baseline. Eval Complexity Eval Charge Codes 09458 - Moderate Complexity PHYSICIAN CERTIFICATION: I certify the specified therapy services for Marybel Shin are required, authorized, and reviewed every 30 days.
[2025-01-19] MEDS: IPRATROPIUM/ALBUTEROL 3 ML NEB IH ×2 (11:03→18:14)
--- NOTE | 2025-01-19 11:25 | HMH.OTEV ---
OT Inpatient Evaluation Rehab OT IP Evaluation Start: 01/19/25 07:42 Freq: ONCE Status: Active Protocol: Document 01/19/25 11:22 LAMAR (Rec: 01/19/25 11:[id number] Rehab OT IP Assessment Subjective History Per H&P: Patient has been ill since Saturday., She states she has not done any travel or been around large groups of people or any sick people with any illness. She has developed a temperature and now has a significantly elevated white count. Has a long history of mental illness being treated on several different medications. But she was able to answer questions well and gave me a fairly good history. Patient also noted that she just recently received the results of her Cologuard back and that it was positive. Noting that the patient was approximately 250 pounds about a year ago she is down to 197 down 53 pounds and just more than a year. Noting that the patient is diabetic and that her hemoglobin A1c per past records have been in the mid 6 range. Chest x-ray shows possible right lower lung pneumonia. Patient shows the fact that she is on oxygen at this point in time that she says she does not use at home. Stated that she is not a smoker but does not get COVID or influenza vaccination. I have excepted the patient be admitted on the floor pharmacy consult continue vancomycin also continue Zosyn.. Will place the patient on cardiac monitoring and continuous pulse ox.. Also will get a twelve-lead EKG to verify that the patient still is in atrial fibs. Monitor in room looks almost normal sinus with a lot of PACs and is perfusing very well.. Subjective Pt reports she lives with her grand-daughter who works ~once weekly. Pt lives in a single-story home with 4 SARAH. Pt normally IND with all functional transfers without AD use. Pt no longer drives. Pt claims she is normally independent with all ADLs She is dependent upon family for completion of all IADLs. Pt's granddaughter and grandson drive her as needed. Pt denies any falls in the past month. Objective Patient Orientation Person,Place,Birthday Right Upper WFL Extremity Gross ROM Left Upper Extremity WFL Gross ROM Bed Mobility bed mobility-scooting,bed mobility - supine/sit Assist Level Supervision/Stand by Transfer Training Sit/Stand Transfer Assist Level Supervision/Stand by Lower Body Dressing Standby Assistance Ability Performing Toilet Standby Assistance Hygiene Ability Overall Commode/ Standby Assistance Toilet Transfer Ability Commode/Toilet Sit to/from Ambulatory Transfer Technique Commode/Toilet Grab Bars Transfer Assistive Devices Rehab OT IP prob,goals,plan Problems Date of Evaluation: 01/19/25 Rehab Potential Rehab Potential Innapropriate for Skilled Therapy Discharge Plan OT Discharge Plan Pt appears to be at her baseline with functional transfers and ADL independence. Pt can return home with family assistance as needed once she is medically stable per physician. Eval Complexity Eval Charge Codes 25665 - Moderate Complexity PHYSICIAN CERTIFICATION: I certify the specified therapy services for Marybel Shin are required, authorized, and reviewed every 30 days.
[2025-01-19 11:46] LABS: POC Glucose,Bedside 135 gm/dL (70-110)
--- NOTE | 2025-01-19 13:40 | EXP.ACUTE.PN ---
Subjective *Date: 01/19/25 *Time: 17:04 Interval history: Patient says she is feeling somewhat better today. Denies any chest pain, nausea or vomiting. Did have an episode of feeling palpitations after lunch, having some A-flutter/fib. Will resume her home medications for rate control. Denies nausea or vomiting. Afebrile. On oxygen overnight, room air on morning rounds Medical Exam Vital signs and Labs for Last 24 Hours: Vital Signs Temp Pulse Pulse Resp BP Pulse Ox O2 Del Method 01/19/25 12:00 122 H 01/19/25 12:00 97.9 F 112 H 20 137/63 95 Room Air 01/19/25 11:03 92 H 01/19/25 11:03 94 H 01/19/25 11:03 98 Room Air 01/19/25 11:00 Nasal Cannula 01/19/25 09:30 Nasal Cannula 01/19/25 08:45 95 Nasal Cannula 01/19/25 08:00 97 H 01/19/25 07:29 97.8 F 96 H 20 97/66 L 95 Nasal Cannula 01/19/25 06:57 Nasal Cannula 01/19/25 05:00 Nasal Cannula 01/19/25 04:00 98.5 F 99 H 16 111/61 92 L Room Air 01/19/25 04:00 95 H 01/19/25 03:00 Nasal Cannula 01/19/25 01:00 Nasal Cannula 01/19/25 00:00 100 H 01/19/25 00:00 98.5 F 101 H 18 99/56 L 94 L Nasal Cannula 01/18/25 23:00 Nasal Cannula 01/18/25 21:00 Nasal Cannula 01/18/25 20:00 Nasal Cannula 01/18/25 20:00 120 H 01/18/25 20:00 98.9 F 124 H 18 124/54 L 92 L Room Air 01/18/25 18:50 97 H 01/18/25 18:49 95 H 01/18/25 18:30 Room Air 01/18/25 16:59 Room Air 01/18/25 16:00 110 H 01/18/25 16:00 98.7 F 108 H 16 102/56 L 96 01/18/25 15:00 Room Air O2 Flow Rate 01/19/25 12:00 01/19/25 12:00 01/19/25 11:03 01/19/25 11:03 01/19/25 11:03 01/19/25 11:00 4 01/19/25 09:30 4 01/19/25 08:45 2 01/19/25 08:00 01/19/25 07:29 2 01/19/25 06:57 2 01/19/25 05:00 2 01/19/25 04:00 01/19/25 04:00 01/19/25 03:00 2 01/19/25 01:00 2 01/19/25 00:00 01/19/25 00:00 2 01/18/25 23:00 2 01/18/25 21:00 2 01/18/25 20:00 2 01/18/25 20:00 01/18/25 20:00 01/18/25 18:50 01/18/25 18:49 01/18/25 18:30 01/18/25 16:59 01/18/25 16:00 01/18/25 16:00 01/18/25 15:00 Intake and Output 01/18/25 01/19/25 01/19/25 23:59 07:59 15:59 Intake Total 910 / 4670.000 1685 / 3105.000 1420.000 / 3105.000 Output Total 0 / 0 300 / 300 Balance 910 / 4670.000 1385 / 2805.000 1420.000 / 2805.000 Intake: Intake, Oral Amount 360 / 1020 660 / 780 120 / 780 Intake, Other Amount 500 / 500 Intake, Total IV Amount 50 / 3150.000 1025 / 2325.000 1300.000 / 2325.000 Lactated Ringers 1000ML 1,000 975 / 4924.904 4247.000 / 1975.000 ml @ 125 mls/hr IV .Q8H KAYLEY Rx# :[id number] Piperacillin/Tazo 3.375 gm In 0 50 / 100 50 / 100 50 / 100 .9 % Sodium Chloride 50 ml @ 100 mls/hr IV Q8H KAYLEY Rx#: [id number] Vancomycin HCl 1,000 mg In 0.9 250 / 250 % Sodium Chloride 250 ml @ 125 mls/hr IV Q24H [facility] Rx#:[id number] Output: Output, Urine Amount 0 / 0 300 / 300 Other: Intake, Other Source Saline Solution Number of Voids 0 Number of Unmeasured Voids 2 0 Weight 94.211 kg Patient Weight 01/19/25 23:59 Weight 94.211 kg Laboratory Results - last 24 hr 01/18/25 11:35: POC Glucose 218 H 01/18/25 16:24: POC Glucose 178 H 01/18/25 21:32: POC Glucose 168 H 01/19/25 05:38: WBC 18.8 H, RBC 3.92 L, Hgb 11.6 L, Hct 34.1 L, MCV 87.0, MCH 29.6, MCHC 34.0, RDW 13.2, Plt Count 228, MPV 10.1, Neut % (Auto) 87.1 H, Lymph % (Auto) 6.8 L, [place] % (Auto) 5.2, Eos % (Auto) 0.2, Baso % (Auto) 0.4, Neut # (Auto) 16.4 H, Lymph # (Auto) 1.3, [place] # (Auto) 1.0, Eos # (Auto) 0.0, Baso # (Auto) 0.1, Sodium 136, Potassium 3.5, Chloride 107, Carbon Dioxide 24, Anion Gap 8.5, BUN 26 H D, Creatinine 0.90 D, Estimated Creat Clear 77, Estimated GFR 62, Est GFR ( Amer) 75 D, Glucose 129 H D, Lactate 1.0, Calcium 8.2 L, Magnesium 2.3 D, Total Bilirubin 0.8, AST 19, ALT 13 D, Alkaline Phosphatase 93, Total Protein 5.8 L, Albumin 2.8 L, Globulin 3.0, Albumin/Globulin Ratio 0.9 L 01/19/25 05:58: POC Glucose 136 H 01/19/25 11:34: POC Glucose 135 H I & O for Labs for Last 24 Hours: Intake & Output 01/16/25 01/17/25 01/18/25 01/19/25 23:59 23:59 23:59 23:59 Intake Total 4550.000 / 4670.000 3105.000 / 3105.000 Output Total 0 / 0 300 / 300 Balance 4550.000 / 4670.000 2805.000 / 2805.000 Weight 92.079 kg 94.211 kg Microbiology Reports for the Last 24 Hours: Microbiology 01/18/25 01:02 Blood Blood Culture - Preliminary NO GROWTH AFTER 24 HOURS 01/18/25 00:55 Blood Blood Culture - Preliminary NO GROWTH AFTER 24 HOURS 01/18/25 21:30 Sputum - Expectorated Sputum Gram Stain - Final Constitutional: Present mild distress, obese, chronically ill appearing and cooperative Head: Present atraumatic and normocephalic ENT: Present normal exam Comment:: Flushed cheeks Respiratory: Present prolonged expiratory phase and crackles (Right lower lung field best heard in posterior exam); Absent rhonchi or wheezes Cardiac: Present Regular Rate Comment:: Irregularly irregular GI: Present soft and normal bowel sounds; Absent distention or tenderness Extremities: Present normal inspection and full ROM Skin: Present intact; Absent erythema Neuro: Present Grossly Intact, alert, awake, oriented x 3 and moves all extremities Assessment and Plan *Assessment and plan (1) Sepsis: Status: Acute Qualifiers: Acute respiratory failure type: with hypoxia Sepsis acute organ dysfunction status: with acute organ dysfunction Sepsis type: sepsis due to unspecified organism Severe sepsis acute organ dysfunction type: acute respiratory failure Severe sepsis shock status: without septic shock Qualified Code(s): A41.9 - Sepsis, unspecified organism; R65.20 - Severe sepsis without septic shock; J96.01 - Acute respiratory failure with hypoxia Category: Medical Code(s): A41.9 - Sepsis, unspecified organism (2) Pneumonia: Status: Acute Qualifiers: Laterality: right Lung location: lower lobe of lung Pneumonia type: due to unspecified organism Qualified Code(s): J18.9 - Pneumonia, unspecified organism Category: Medical Code(s): J18.9 - Pneumonia, unspecified organism (3) CAREY (acute kidney injury): Status: Acute Category: Medical Code(s): N17.9 - Acute kidney failure, unspecified (4) Fever: Status: Acute Qualifiers: Fever type: unspecified Qualified Code(s): R50.9 - Fever, unspecified Category: Medical Code(s): R50.9 - Fever, unspecified (5) Positive colorectal cancer screening using Cologuard test: Status: Acute Category: Medical Code(s): R19.5 - Other fecal abnormalities (6) Weight loss: Status: Acute Category: Medical Code(s): R63.4 - Abnormal weight loss Plan 69-year-old female who presented with shortness of breath, leukocytosis, weakness. Meeting sepsis criteria with white count of 28, heart rate consistently 92-108, respiratory rate 22, on 2 L oxygen. Remains afebrile. Blood pressure soft but appropriate after fluid resuscitation. Discussed case with ER physician, request admission for management of sepsis and pneumonia. I agreed to admit for further care. Showing some improvement in blood pressure today. Continues to require inpatient management. Gradually resume medications for A-fib/a flutter.. Resume problems addressed as follows: Severe sepsis Pneumonia CAREY -Continue Zosyn 3.375 g every 8 hours, continue vancomycin 1 g daily - White count elevated at 28 on arrival, improved to 18 this morning. Hemoglobin 11.6. Repeat CBC, CMP, magnesium ordered for the morning. - Supplemental oxygen as needed for goal sats greater 90% - Kidney function showing improvement. BUN down from 42-26. Creatinine normalized from 1.7 on admission to 0.9 this morning. - Blood pressure stabilized. No pressors at this time. Discontinue IV fluids -Potassium 3.5, magnesium 2.3 - Blood cultures pending. Sputum culture pending. Normally hypertensive. Took her blood pressure meds yesterday. Will hold those meds today due to hypotension/severe sepsis. Holding Lasix, losartan, Farxiga. Resume when appropriate. Diabetes: A1c 6.4 the beginning of last month, consistent with well-controlled -Glucose 129 on morning labs - Continue sliding scale insulin and fingersticks ACHS - Continue basal insulin with insulin glargine 30 units nightly, will titrate to home regimen (45units HS) once patient eating CAD: A-fib - continue Plavix 75 mg daily - Continue flecainide 100 mg twice daily for paroxysmal A-fib, resume metoprolol succinate 25 mg daily. Administer metoprolol to tartrate 5 mg IV once for heart rate greater than 100 Continue Cymbalta 30 mg daily for mood Continue famotidine 20 mg nightly for GERD Full code Xarelto 20 mg daily Diabetic diet
--- NOTE | 2025-01-19 15:20 | ECG_ITS ---
APPROVED REPORT Exam: Resting ECG HR:119 bpm ECG Measurements Heart Rate 119 AXES QRSd 104 QRS 89 QT 316 T -5 QTc 386 Conclusion ATRIAL FLUTTER/TACHYCARDIA WITH RAPID VENTRICULAR RESPONSE ABNORMAL QRS-T ANGLE [QRS-T AXIS DIFFERENCE > 60] ABNORMAL ECG UNCONFIRMED REPORT Electronically signed by : Michele Ruby MD 01/20/2025 08:36:19
[2025-01-19] MEDS: METOPROLOL TARTRATE 5MG/5ML VIAL 5 MG IV (15:56)
[2025-01-19] MEDS: humaLOG 100 UNITS/ML 10ML VIAL (SSI) SUBCUT ×2 (16:51→20:34)
[2025-01-19] MEDS: ACETAMINOPHEN 325MG TAB 650 MG PO (18:53)
[2025-01-19] MEDS: METOPROLOL TARTRATE 50MG TABLET 25 MG PO (19:11)
[2025-01-19 19:49] LABS: POC Glucose,Bedside 212 gm/dL (70-110)
[2025-01-19] MEDS: INSULIN GLARGINE 100 UNITS/ML 3ML FLEXPEN 30 UNIT SUBCUT (20:34)
[2025-01-19] MEDS: PANTOPRAZOLE 40MG TABLET 40 MG PO (20:34)
[2025-01-19] MEDS: FAMOTIDINE 20MG TABLET 20 MG PO (20:34)
--- NOTE | 2025-01-19 23:55 | PC.NURSE ---
Patient's oxygen saturations decreased to 88% to 89% maintained on room air. She was placed onto 2 L of oxygen via nasal cannula at this time for resting periods.
[2025-01-20] VITALS (9 sets, daily range): BP systolic 109–130; BP diastolic 50–79; PULSE 69–130; RESP 16–18; TEMP 36.7–36.9; O2SAT 90–94; BMI 34.9
[2025-01-20] MEDS: PIPERACILLIN/TAZO 3.375 GM in 0.9 % SODIUM CHLORIDE 50 ML IV ×2 (00:20→08:16)
--- NOTE | 2025-01-20 04:05 | PC.NURSE ---
Patient is alert and oriented x4. Pleasantly conversational during wakeful periods, stated that she feels better upon assessment. She was observed to be resting in bed with eyes closed, respirations even and unlabored, and no apparent distress throughout the majority of the night. She has reported having a couple wet bowel movements this shift. Nasal cannula (2 L oxygen flow) in place during resting period, tolerates room air while awake. Oxygen saturations > 90%. Afib on telemetry, heart rate elevation noted. Patient has not had any further reports of feeling her heart race during this shift. Scheduled medications were administered per JUL. She ambulates independently with standby assistance as needed in her room/to the bathroom without difficulties. ACHS glucose checks performed. At this time, the patient is resting in bed without any further complaints. No acute changes noted thus far. Call light within reach.
[2025-01-20 05:46] LABS: Hematocrit 35.3 % (37.0-47.0); Hemoglobin 11.4 g/dL (12.2-16.2); Immature Granulocytes % 1.1 %; Mean Corpuscular HGB Conc 32.3 g/dL (31.8-35.4); Mean Corpuscular Hemoglobin 28.4 pg (27.0-31.2); Mean Corpuscular Volume 87.8 fl (81-99); Nucleated Red Blood Cells % 0 %; Platelet Count 252 K/mm3 (142-424); Red Blood Count 4.02 M/mm3 (4.20-5.40); Red Cell Distribution Width-SD 42.9 fL; White Blood Count 12.9 K/mm3 (4.8-10.8)
[2025-01-20 05:52] LABS: Alanine Aminotransferase 15 U/L (12-78); Albumin Level 3.1 g/dl (3.5-5.0); Albumin/Globulin Ratio 1.0 (1.1-1.8); Alkaline Phosphatase 111 U/L (38-126); Anion Gap 9.7 mEq/L (5-15); Aspartate Amino Transferase 24 U/L (14-36); Bilirubin,Total 0.9 mg/dl (0.2-1.3); Blood Urea Nitrogen 17 mg/dl (7-17); Calcium 8.5 mg/dl (8.4-10.2); Carbon Dioxide 26 mmol/L (22.0-30.0); Chloride 107 mmol/L (98-107); Creatinine Clearance Estimated 78 mL/min (50-200); Creatinine,Serum 0.90 mg/dl (0.52-1.04); Estimated Glomerular Filt Rate 62 ml/min (>60); GFR (African American) 75 ML/MIN (>60); Globulin 3.2 g/dL (1.3-3.2); Glucose 124 mg/dl (74-100); Magnesium 2.0 mg/dl (1.6-2.3); Potassium 3.7 mmoL/L (3.5-5.1); Sodium 139 mmol/L (136-145); Total Protein,Serum 6.3 g/dl (6.3-8.2)
[2025-01-20 05:57] LABS: POC Glucose,Bedside 113 gm/dL (70-110)
[2025-01-20] MEDS: IPRATROPIUM/ALBUTEROL 3 ML NEB IH ×2 (06:20→12:43)
--- NOTE | 2025-01-20 07:37 | EXP.DC.SUM ---
General Admission date:: 01/18/25 Discharge date: 01/20/25 HPI HPI HPI: Patient has been ill since Saturday., She states she has not done any travel or been around large groups of people or any sick people with any illness. She has developed a temperature and now has a significantly elevated white count. Has a long history of mental illness being treated on several different medications. But she was able to answer questions well and gave me a fairly good history. Patient also noted that she just recently received the results of her Cologuard back and that it was positive. Noting that the patient was approximately 250 pounds about a year ago she is down to 197 down 53 pounds and just more than a year. Noting that the patient is diabetic and that her hemoglobin A1c per past records have been in the mid 6 range. Chest x-ray shows possible right lower lung pneumonia. Patient shows the fact that she is on oxygen at this point in time that she says she does not use at home. Stated that she is not a smoker but does not get COVID or influenza vaccination. I have excepted the patient be admitted on the floor pharmacy consult continue vancomycin also continue Zosyn.. Will place the patient on cardiac monitoring and continuous pulse ox.. Also will get a twelve-lead EKG to verify that the patient still is in atrial fibs. Monitor in room looks almost normal sinus with a lot of PACs and is perfusing very well.. Hospital Course Hospital Course Hospital Course: 69-year-old female who presented with shortness of breath, leukocytosis, weakness. Meeting sepsis criteria with white count of 28, heart rate consistently 92-108, respiratory rate 22, on 2 L oxygen. Remains afebrile. Blood pressure soft but appropriate after fluid resuscitation. Discussed case with ER physician, request admission for management of sepsis and pneumonia. I agreed to admit for further care. Initially requiring oxygen with hypotension that was responsive to fluid resuscitation. Pressure stabilized. Kidney function improved. Weaned to room air. Did have development of A-fib RVR due to stress of her sepsis and pneumonia but stable discharge home with adjustments to home medications. Problems addressed as follows: Severe sepsis Pneumonia CAREY - On presentation, patient was tachypneic, tachycardic, had chest imaging showing right lower lobe pneumonia. Initiated on Zosyn. Responded well to antibiotics. White count initially 28,000, improved to 12.9 by day of discharge. Hemoglobin 11.4. Will transition to Augmentin to complete 7 days total of therapy. Blood cultures and sputum cultures remain negative. On room air. Kidney function initially abnormal with BUN of 42, improved to 17 by day of discharge. Creatinine 1.7, improved to 0.9. Able to resume home medication for blood pressure and A-fib. Normally hypertensive. Took her blood pressure meds day before admission. Blood pressure soft on admission. Okay to resume blood pressure meds after discharge due to stabilization of blood pressure Diabetes: A1c 6.4 the beginning of last month, consistent with well-controlled. Glucose in the 100s during admission. Treated with sliding scale insulin and fingersticks ACHS. Resumed basal insulin at decreased dose due to poor p.o. intake. Resume home regimen of Tresiba 45 units nightly. CAD: A-fib - Had a brief episode of A-fib with RVR on morning of discharge due to stress of illness. Resumed patient's flecainide with improvement in heart rate. Cardiology was consulted. Recommend doubling metoprolol for now. Will place 2-week event monitor at discharge. Follow-up in 2 weeks. No indication for cardioversion. Heart rate better prior to discharge. Will continue flecainide 100 mg twice daily and metoprolol succinate 25 mg twice daily. Continue Cymbalta 30 mg daily for mood Continue famotidine 20 mg nightly for GERD Total time spent on discharge 32 minutes in counseling, documentation, chart review, and direct care with patient. Exam Data for Last 24 hours Vital signs and Labs for Last 24 Hours: Temp Pulse Resp BP Pulse Ox O2 Del Method O2 Flow Rate 98.0 F 69 16 130/79 94 L Room Air 2 01/20/25 04:00 01/20/25 06:22 01/20/25 04:00 01/20/25 04:00 01/20/25 04:00 01/20/25 06:40 01/20/25 05:00 Laboratory Results - last 24 hr 01/19/25 11:34: POC Glucose 135 H 01/19/25 19:40: POC Glucose 212 H 01/20/25 05:20: WBC 12.9 H D, RBC 4.02 L, Hgb 11.4 L, Hct 35.3 L, MCV 87.8, MCH 28.4, MCHC 32.3, RDW 13.3, Plt Count 252, MPV 10.2, Neut % (Auto) 79.9, Lymph % (Auto) 10.0, Petroleum % (Auto) 7.4, Eos % (Auto) 1.2, Baso % (Auto) 0.4, Neut # (Auto) 10.3 H, Lymph # (Auto) 1.3, Petroleum # (Auto) 1.0, Eos # (Auto) 0.2, Baso # (Auto) 0.1, Sodium 139, Potassium 3.7, Chloride 107, Carbon Dioxide 26, Anion Gap 9.7, BUN 17 D, Creatinine 0.90, Estimated Creat Clear 78, Estimated GFR 62, Est GFR ( Amer) 75, Glucose 124 H, Calcium 8.5, Magnesium 2.0 D, Total Bilirubin 0.9, AST 24 D, ALT 15, Alkaline Phosphatase 111, Total Protein 6.3, Albumin 3.1 L D, Globulin 3.2, Albumin/Globulin Ratio 1.0 L 01/20/25 05:49: POC Glucose 113 H I & O for Last 24 hours: Intake & Output 01/17/25 01/18/25 01/19/25 01/20/25 23:59 23:59 23:59 23:59 Intake Total 4550.000 / 4670.000 3425.000 / 3575.000 300 / 300 Output Total 0 / 0 300 / 300 0 / 0 Balance 4550.000 / 4670.000 3125.000 / 3275.000 300 / 300 Weight 92.079 kg 94.211 kg 95.254 kg Microbiology Reports for the Last 24 Hours: Microbiology 01/18/25 01:02 Blood Blood Culture - Preliminary NO GROWTH AFTER 48 HOURS 01/18/25 00:55 Blood Blood Culture - Preliminary NO GROWTH AFTER 48 HOURS Constitutional Constitutional: no acute distress, obese, chronically ill appearing and cooperative *Routine HEENT Exam Head: Present normocephalic Eye: Present EOMI and PERRL ENT: Present mucous membranes moist *Routine Neck Exam Neck: Present supple; Absent lymphadenopathy *Routine Respiratory Exam Respiratory: Present crackles (Improved right lower lung field); Absent accessory muscle use, rhonchi or wheezes *Routine Cardiovascular Exam Cardiovascular: Present irregularly irregular Comments: Tachycardia with heart rate in the 90s *Routine Abdominal Exam Abdominal: Present soft and normoactive bowel sounds; Absent tenderness *Routine Rectal Exam Patient deferred: visual exam *Routine Exam Patient deferred: external exam *Routine Extremities Exam Extremities: Absent cyanosis, clubbing or edema *Routine Skin Exam Skin: Present intact and warm; Absent rash *Routine Neurological Exam Neurological: Present alert, oriented X3 and moving all extremities; Absent altered mental status Results Data Completed and Pending Labs on day of discharge: Labs from last 24 hours 01/20/25 01/20/25 01/19/25 05:49 05:20 19:40 WBC 12.9 H D RBC 4.02 L Hgb 11.4 L Hct 35.3 L MCV 87.8 MCH 28.4 MCHC 32.3 RDW 13.3 Plt Count 252 MPV 10.2 Neut % (Auto) 79.9 Lymph % (Auto) 10.0 Petroleum % (Auto) 7.4 Eos % (Auto) 1.2 Baso % (Auto) 0.4 Neut # (Auto) 10.3 H Lymph # (Auto) 1.3 Petroleum # (Auto) 1.0 Eos # (Auto) 0.2 Baso # (Auto) 0.1 Sodium 139 Potassium 3.7 Chloride 107 Carbon Dioxide 26 Anion Gap 9.7 BUN 17 D Creatinine 0.90 Estimated Creat Clear 78 Estimated GFR 62 Est GFR ( Amer) 75 Glucose 124 H POC Glucose 113 H 212 H Calcium 8.5 Magnesium 2.0 D Total Bilirubin 0.9 AST 24 D ALT 15 Alkaline Phosphatase 111 Total Protein 6.3 Albumin 3.1 L D Globulin 3.2 Albumin/Globulin Ratio 1.0 L 01/19/25 11:34 WBC RBC Hgb Hct MCV MCH MCHC RDW Plt Count MPV Neut % (Auto) Lymph % (Auto) Petroleum % (Auto) Eos % (Auto) Baso % (Auto) Neut # (Auto) Lymph # (Auto) Petroleum # (Auto) Eos # (Auto) Baso # (Auto) Sodium Potassium Chloride Carbon Dioxide Anion Gap BUN Creatinine Estimated Creat Clear Estimated GFR Est GFR ( Amer) Glucose POC Glucose 135 H Calcium Magnesium Total Bilirubin AST ALT Alkaline Phosphatase Total Protein Albumin Globulin Albumin/Globulin Ratio Preliminary micro results at discharge 01/18/25 01:02 Blood Culture - Preliminary Blood NO GROWTH AFTER 48 HOURS 01/18/25 00:55 Blood Culture - Preliminary Blood NO GROWTH AFTER 48 HOURS DS: Diagnosis Discharge Diagnosis (1) Sepsis: Status: Acute Code(s): A41.9 - Sepsis, unspecified organism Qualifiers: Acute respiratory failure type: with hypoxia Sepsis acute organ dysfunction status: with acute organ dysfunction Sepsis type: sepsis due to unspecified organism Severe sepsis acute organ dysfunction type: acute respiratory failure Severe sepsis shock status: without septic shock Qualified Code(s): A41.9 - Sepsis, unspecified organism; R65.20 - Severe sepsis without septic shock; J96.01 - Acute respiratory failure with hypoxia (2) Pneumonia: Status: Acute Code(s): J18.9 - Pneumonia, unspecified organism Qualifiers: Laterality: right Lung location: lower lobe of lung Pneumonia type: due to unspecified organism Qualified Code(s): J18.9 - Pneumonia, unspecified organism (3) CAREY (acute kidney injury): Status: Acute Code(s): N17.9 - Acute kidney failure, unspecified (4) Fever: Status: Acute Code(s): R50.9 - Fever, unspecified Qualifiers: Fever type: unspecified Qualified Code(s): R50.9 - Fever, unspecified (5) Weight loss: Status: Acute Code(s): R63.4 - Abnormal weight loss (6) Type 2 diabetes mellitus with diabetic neuropathy: Status: Chronic Code(s): E11.40 - Type 2 diabetes mellitus with diabetic neuropathy, unspecified (7) Essential hypertension: Status: Chronic Code(s): I10 - Essential (primary) hypertension (8) CAD (coronary artery disease): Status: Chronic Code(s): I25.10 - Atherosclerotic heart disease of [place] coronary artery without angina pectoris Qualifiers: Coronary Disease-Associated Artery/Lesion type: [place] artery [place] vs. transplanted heart: [place] heart Associated angina: without angina Qualified Code(s): I25.10 - Atherosclerotic heart disease of [place] coronary artery without angina pectoris (9) PAF (paroxysmal atrial fibrillation): Status: Chronic Code(s): I48.0 - Paroxysmal atrial fibrillation (10) Obesity: Status: Chronic Code(s): E66.9 - Obesity, unspecified Qualifiers: Obesity type: due to excess calories Obesity classification: adult class 3 (BMI >= 40) Serious obesity comorbidity presence: with serious comorbidity Body mass index: BMI 40.0-44.9 Qualified Code(s): E66.01 - Morbid (severe) obesity due to excess calories; Z68.41 - Body mass index [BMI] 40.0-44.9, adult Meds Home Medications and Allergies Home Medications ?Medication ?Instructions ?Recorded ?Confirmed ?Type insulin lispro 100 unit/mL 1 sliding scale dose SQ AC Diabetes 03/19/23 01/18/25 History subcutaneous pen ergocalciferol (vitamin D2) 1,250 1,250 mcg PO WEEKLY #14 caps 08/03/24 01/18/25 Rx mcg (50,000 unit) capsule famotidine 20 mg tablet 20 mg PO HS 08/07/24 01/18/25 History flecainide 100 mg tablet 100 mg PO BID 08/07/24 01/18/25 History memantine 7 mg capsule 7 mg PO DAILY #90 ea 09/16/24 01/18/25 Rx sprinkle,extended release 24hr losartan 50 mg tablet 50 mg PO DAILY #90 tabs 09/17/24 01/18/25 Rx dexlansoprazole 60 mg 60 mg PO DAILY 09/28/24 01/18/25 History capsule,biphase delayed release blood-glucose sensor (Dexcom G7 #14 ea 11/02/24 01/18/25 Rx Sensor device) montelukast 10 mg tablet 10 mg PO HS #90 tabs 11/09/24 01/18/25 Rx (Singulair) cholecalciferol (vitamin D3) 50 50 mcg PO DAILY #90 caps 11/12/24 01/18/25 Rx mcg (2,000 unit) capsule clopidogrel 75 mg tablet 75 mg PO DAILY #90 tabs 11/18/24 01/18/25 Rx insulin degludec 100 unit/mL (3 45 unit SQ HS 11/24/24 01/18/25 History mL) subcutaneous pen (Tresiba FlexTouch U-100 insulin) dapagliflozin propanediol 10 mg 10 mg PO DAILY #90 tabs 12/24/24 01/18/25 Rx tablet (Farxiga) duloxetine 30 mg capsule,delayed 30 mg PO DAILY 01/18/25 01/18/25 History release evolocumab 140 mg/mL subcutaneous 140 mg SQ MONTHLY 01/18/25 01/18/25 History pen injector (Repleila SureNikoick) furosemide 40 mg tablet 80 mg PO SUTUTH 01/18/25 01/18/25 History furosemide 40 mg tablet (Lasix) 40 mg PO MOWEFRSA 01/18/25 01/18/25 History rivaroxaban 20 mg tablet (Xarelto) 20 mg PO QPMWITHMEAL 01/18/25 01/18/25 History tirzepatide 10 mg/0.5 mL 10 mg SQ WEEKLY 01/18/25 01/18/25 History subcutaneous pen injector (Mounjaro) amoxicillin 500 mg-potassium 1 tab PO TID 5 days #15 tabs 01/20/25 Rx clavulanate 125 mg tablet (Augmentin) metoprolol succinate 25 mg 25 mg PO BID 30 days #60 tabs 01/20/25 Rx tablet,extended release 24 hr New Prescriptions to Start Prescriptions: amoxicillin-pot clavulanate [Augmentin] Corey Esteban metoprolol succinate Corey Esteban Allergies Allergy/AdvReac Type Severity Reaction Status Date / Time canagliflozin (From Invokana) Allergy Severe blisters Verified 12/24/24 13:13 metformin Allergy Mild Diarrhea, Verified 12/24/24 13:13 nausea, dizziness sitagliptin (From Januvia) Allergy Mild Hives Verified 12/24/24 13:13 linaclotide (From Linzess) Allergy Rash Verified 12/24/24 13:13 metronidazole (From Metrogel) Allergy Rash Verified 12/24/24 13:13 nystatin Allergy Dizziness Verified 12/24/24 13:13 rosuvastatin (From Crestor) Allergy Dizziness Verified 12/24/24 13:13 semaglutide (From Ozempic) AdvReac Severe Abdominal Verified 12/24/24 13:13 Pain atorvastatin (From Lipitor) AdvReac Intermediate body aches Verified 12/24/24 13:13 andmental confusion isosorbide AdvReac Headache Verified 01/20/25 07:27 Discharge Plan Disposition Patient Disposition: Home, Self-Care Condition: Fair Discharge Order Discharge Orders: Discharge Order (Routine); Ordered 01/20/25 Ordered By: Corey Esteban Follow up Plan Follow up with: Ronal Hodgson PA [Physician Department Traffic Freight [employer]outer, Cardiology] - 02/09/25 2:45 pm Radha Petit APRN [Nurse Practitioner, Family Practice] - 01/27/25 1:00 pm Prescriptions/Medication Reconciliation: New amoxicillin-pot clavulanate [Augmentin] 500-125 mg tablet 1 tab PO TID 5 Days Qty: 15 0RF Continued dexlansoprazole 60 mg capsule,biphase delayed releas 60 mg PO DAILY Patient Comments: TAKE 1 CAPSULE BY MOUTH ONCE DAILY dapagliflozin propanediol [Farxiga] 10 mg tablet 10 mg PO DAILY Qty: 90 2RF insulin lispro 100 unit/mL insulin pen 1 sliding scale dose SQ AC Patient Comments: 125-150 6 units 150-200 8 units over 200 10 units ergocalciferol (vitamin D2) 1,250 mcg (50,000 unit) capsule 1,250 mcg PO WEEKLY Qty: 14 3RF memantine 7 mg capsule,sprinkle,ER 24hr 7 mg PO DAILY Qty: 90 1RF losartan 50 mg tablet 50 mg PO DAILY Qty: 90 1RF (DME) Dexcom G7 Sensor Device See Rx Instructions .Route Qty: 14 3RF Rx Instructions: As directed montelukast [Singulair] 10 mg tablet 10 mg PO HS Qty: 90 3RF cholecalciferol (vitamin D3) 50 mcg (2,000 unit) capsule 50 mcg PO DAILY Qty: 90 3RF clopidogrel 75 mg tablet 75 mg PO DAILY Qty: 90 2RF insulin degludec [Tresiba FlexTouch U-100] 100 unit/mL (3 mL) insulin pen 45 unit SQ HS Rx Instructions: INJECT SUBCUTANEOUSLY AT BEDTIME Xarelto 20 mg tablet 20 mg PO QPMWITHMEAL Mounjaro 10 mg/0.5 mL pen injector 10 mg SQ WEEKLY Rx Instructions: INJECT 1 SYRINGE SUBCUTANEOUSLY ONCE A WEEK (every Saturday) furosemide 40 mg tablet 80 mg PO [facility] Patient Comments: TAKE 1 TABLET BY MOUTH ONCE DAILY ON SATURDAY, SATURDAY AND SATURDAY AND SATURDAY, TAKE 2 TABLETS BY MOUTH ON SATURDAY, SATURDAY, AND SATURDAY duloxetine 30 mg capsule,delayed release(DR/EC) 30 mg PO DAILY Patient Comments: TAKE 1 CAPSULE BY MOUTH ONCE DAILY furosemide [Lasix] 40 mg tablet 40 mg PO Rx Instructions: Take Lasix 40mg MWFSat Take Lasix 80mg on TThSun Repatha SureClick 140 mg/mL pen injector 140 mg SQ MONTHLY Rx Instructions: INJECT CONTENTS OF 3 PEN SUBCUTANEOUSLY ONCE EVERY MONTH famotidine 20 mg tablet 20 mg PO HS flecainide 100 mg tablet 100 mg PO BID Changed metoprolol succinate 25 mg tablet extended release 24 hr 25 mg PO BID 30 Days Qty: 60 3RF Problem Reconciliation Problems Reviewed?: Yes Patient Discharge Instructions ACTIVITY: Continue current activity DIET: continue same diet Patient Instructions: DI for Pneumonia -- Adult, Acute Kidney Injury, DI for Sepsis -- Adult, Stop Light Pneumonia, Stop Light Infection Print Language: Wallisian Providers Primary Care Provider: Provider,Referral Admit Provider: Robel Campbell Attending Provider: Robel Campbell
[2025-01-20] MEDS: METOPROLOL SUCCINATE XL 25MG TABLET 25 MG PO ×2 (08:16→10:31)
[2025-01-20] MEDS: FLECAINIDE 50MG TABLET 100 MG PO (08:17)
[2025-01-20] MEDS: CLOPIDOGREL 75MG TAB 75 MG PO (08:17)
[2025-01-20] MEDS: FUROSEMIDE 40MG/4ML VIAL 40 MG IV (08:17)
--- NOTE | 2025-01-20 08:49 | DIET.NUTRFU ---
weight loss indicated in admission note, 250 pounds about a year ago she is down to 197 down 53 pounds and just more than a year. She is on Mounjaro at home and weight loss was beneficial. BMI is 35, continuos gradual weight loss is beneficial for overall health. Currently on diabetic diet with fair po intake. Noting that the patient is diabetic and that her hemoglobin A1c per past records have been in the mid 6 range, well controlled. Plan to discharge today
[2025-01-20] MEDS: VANCOMYCIN HCL 1,000 MG in 0.9 % SODIUM CHLORIDE 250 ML 125 MG IV (09:35)
--- NOTE | 2025-01-20 09:48 | ECG_ITS ---
APPROVED REPORT Exam: Resting ECG HR:119 bpm ECG Measurements Heart Rate 119 AXES QRSd 102 QRS 70 QT 335 T 5 QTc 406 Conclusion ATRIAL FIBRILLATION WITH RAPID VENTRICULAR RESPONSE ABNORMAL RHYTHM ECG UNCONFIRMED REPORT Electronically signed by : Michele Ruby MD 01/21/2025 09:03:26
--- NOTE | 2025-01-20 10:30 | EXP.CARD.CON ---
History of Present Illness History of Present Illness Consult date: 02/24/25 Requesting physician: Corey Esteban Consult reason: atrial fibrillation Chief complaint: a-fib History of present illness: 69-year-old white female established patient of our office admitted with sepsis from pneumonia. We are consulted to help manage A-fib exacerbation. Ms. Shin has a history of CAD status post stenting 2019 as well as paroxysmal atrial fibrillation typically well-controlled with metoprolol flecainide 100 mg 3 times daily and Xarelto for anticoagulation. She also has HFpEF with LA dilation and moderate MR obstructive sleep apnea and diabetes. Patient presented to the hospital via EMS on January 18 with weakness and shortness of breath and was found to have severe sepsis due to right lower lobe pneumonia. She has been on broad-spectrum antibiotics and currently improving. She has A-fib exacerbation with heart rate averaging less than 120s. She reports occasionally feeling palpitations from this. Last O2 was at 93% on room air. [facility] Disclaimer: The information contained in this section may have been updated after the patient was seen, as this information can be updated by other users. Medical History Mini stroke Ganglion cyst of hand tendon excised Irritable bowel syndrome with mixed bowel habits Colon cancer screening Breast cancer screening by mammogram Diabetes mellitus Upper abdominal pain Abnormal echocardiogram Interatrial cardiac shunt Angina pectoris Wellness examination Memory loss CVA (cerebral vascular accident) Chest pain Body mass index (BMI) of 40.1 to 44.9 in adult Family history of Danitza's disease Ganglion cyst of left foot Typical angina Diabetic gastroparesis Vomiting Bilateral impacted cerumen Pain, gastric Gastritis Cholelithiasis Gallstones Gastroparesis Dyspnea Chest pain Onychoincurvatum Onychodystrophy Trigger finger of right hand Tendinitis of right peroneus brevis tendon Foot pain, right Insulin dependent diabetes mellitus with complications Plantar fasciitis, left Foot pain, left Onychogryposis of toenail Asymptomatic hypertension Dizziness Chest pain Epigastric abdominal pain Dehydration Abnormal cardiovascular stress test Low blood pressure reading Atypical chest pain Myalgia due to statin Fracture of fifth metatarsal bone of right foot with delayed healing Cardiac arrhythmia Sinus bradycardia Back pain Obesity, Class III, BMI 40-49.9 (morbid obesity) Labile essential hypertension TOMAS (obstructive sleep apnea) Ear itching Allergic rhinitis Breast cyst Ganglion cyst Dermoid cyst of head Diabetes mellitus, type 2 Neck pain Moderate mitral regurgitation Mood disorder Obesity HTN (hypertension) COPD (chronic obstructive pulmonary disease) GERD (gastroesophageal reflux disease) Neuropathy Anxiety Restless leg syndrome Surgical History Hx of removal of cyst S/P coronary artery stent placement Status post trigger finger release History of cholecystectomy History of hysterectomy History of colonoscopy Family History Other Family history of Alzheimer's disease Family history of Danitza's disease Family history of myocardial infarction Social History Smoking Status: Never smoker second hand exposure: Yes alcohol intake: never counseling provided: provider counseling substance use type: former substance user, marijuana and crack/cocaine counseling given: No (former user) current occupational status: retired Travel in the last 8 weeks?: None household members: children housing: house lives independently: Yes marital status: legally education level: high school current occupational exposures/hazards: No caffeine: No special lex needs: No agree to transfusion: No do you feel safe at home: Yes victim of physical abuse: No victim of emotional abuse: No victim of sexual abuse: No would you like helpful sources: No Have you lived/traveled outside US in past 30 days?: No Contact w/someone who lives/traveled outside US past 30 days?: No Exposure to someone with infectious disease in past 14 days?: No Do you have a fever (greater than 100.4 F or 38 C)?: Yes Have you tested positive for COVID-19?: No Exposed to someone with COVID-19 in past 14 days?: No Do you have a sore throat?: No Do you have a cough?: No Do you have any weakness?: Yes Do you have any diarrhea?: No Are you experiencing any unusual bleeding?: No Do you have any muscle aches/pain?: No Do you have any abdominal pain?: No Are you experiencing loss of taste or smell?: No Review of Systems Constitutional Constitutional: Reports weakness Eyes Eyes: Denies loss of vision ENT Ears, Nose, Mouth, and Throat: Denies hearing loss *Cardiovascular Cardiovascular: Denies chest pain, Reports dyspnea, Reports dyspnea on exertion and Reports palpitations *Respiratory Respiratory: Reports cough, Reports dyspnea and Reports dyspnea on exertion *Gastrointestinal Gastrointestinal: Denies change in stool character, Denies nausea and Denies vomiting *Musculoskeletal Musculoskeletal: Denies muscle weakness Integumentary/Breasts Skin/Breast: Denies changing lesions *Neurologic Neurologic: Reports as per HPI, Denies loss of vision and Reports weakness Endocrine Endocrine: Reports palpitations Exam Data for Last 24 hours Vital signs and Labs for Last 24 Hours: Temp Pulse Resp BP Pulse Ox O2 Del Method O2 Flow Rate 98.3 F 116 H 16 127/79 93 L Room Air 2 01/20/25 07:50 01/20/25 10:12 01/20/25 07:50 01/20/25 10:12 01/20/25 10:12 01/20/25 10:12 01/20/25 05:00 Laboratory Results - last 24 hr 01/19/25 11:34: POC Glucose 135 H 01/19/25 19:40: POC Glucose 212 H 01/20/25 05:20: WBC 12.9 H D, RBC 4.02 L, Hgb 11.4 L, Hct 35.3 L, MCV 87.8, MCH 28.4, MCHC 32.3, RDW 13.3, Plt Count 252, MPV 10.2, Neut % (Auto) 79.9, Lymph % (Auto) 10.0, [place] % (Auto) 7.4, Eos % (Auto) 1.2, Baso % (Auto) 0.4, Neut # (Auto) 10.3 H, Lymph # (Auto) 1.3, [place] # (Auto) 1.0, Eos # (Auto) 0.2, Baso # (Auto) 0.1, Sodium 139, Potassium 3.7, Chloride 107, Carbon Dioxide 26, Anion Gap 9.7, BUN 17 D, Creatinine 0.90, Estimated Creat Clear 78, Estimated GFR 62, Est GFR ( Amer) 75, Glucose 124 H, Calcium 8.5, Magnesium 2.0 D, Total Bilirubin 0.9, AST 24 D, ALT 15, Alkaline Phosphatase 111, Total Protein 6.3, Albumin 3.1 L D, Globulin 3.2, Albumin/Globulin Ratio 1.0 L 01/20/25 05:49: POC Glucose 113 H I & O for Last 24 hours: Intake & Output 01/17/25 01/18/25 01/19/25 01/20/25 23:59 23:59 23:59 23:59 Intake Total 4550.000 / 4670.000 3425.000 / 3575.000 620 / 620 Output Total 0 / 0 300 / 300 300 / 300 Balance 4550.000 / 4670.000 3125.000 / 3275.000 320 / 320 Weight 203 lb 207 lb 11.2 oz 210 lb Microbiology Reports for the Last 24 Hours: Microbiology 01/18/25 21:30 Sputum - Expectorated Sputum Gram Stain - Final 01/18/25 21:30 Sputum - Expectorated Sputum Sputum Culture - Preliminary 01/18/25 01:02 Blood Blood Culture - Preliminary NO GROWTH AFTER 48 HOURS 01/18/25 00:55 Blood Blood Culture - Preliminary NO GROWTH AFTER 48 HOURS Meds Home Medications and Allergies Home Medications ?Medication ?Instructions ?Recorded ?Confirmed ?Type insulin lispro 100 unit/mL 1 sliding scale dose SQ AC Diabetes 03/19/23 01/18/25 History subcutaneous pen ergocalciferol (vitamin D2) 1,250 1,250 mcg PO WEEKLY #14 caps 08/03/24 01/18/25 Rx mcg (50,000 unit) capsule famotidine 20 mg tablet 20 mg PO HS 08/07/24 01/18/25 History flecainide 100 mg tablet 100 mg PO BID 08/07/24 01/18/25 History memantine 7 mg capsule 7 mg PO DAILY #90 ea 09/16/24 01/18/25 Rx sprinkle,extended release 24hr losartan 50 mg tablet 50 mg PO DAILY #90 tabs 09/17/24 01/18/25 Rx dexlansoprazole 60 mg 60 mg PO DAILY 09/28/24 01/18/25 History capsule,biphase delayed release blood-glucose sensor (Dexcom G7 #14 ea 11/02/24 01/18/25 Rx Sensor device) montelukast 10 mg tablet 10 mg PO HS #90 tabs 11/09/24 01/18/25 Rx (Singulair) cholecalciferol (vitamin D3) 50 50 mcg PO DAILY #90 caps 11/12/24 01/18/25 Rx mcg (2,000 unit) capsule clopidogrel 75 mg tablet 75 mg PO DAILY #90 tabs 11/18/24 01/18/25 Rx metoprolol succinate 25 mg 25 mg PO DAILY #30 tabs 11/18/24 01/18/25 Rx tablet,extended release 24 hr insulin degludec 100 unit/mL (3 45 unit SQ HS 11/24/24 01/18/25 History mL) subcutaneous pen (Tresiba FlexTouch U-100 insulin) dapagliflozin propanediol 10 mg 10 mg PO DAILY #90 tabs 12/24/24 01/18/25 Rx tablet (Farxiga) duloxetine 30 mg capsule,delayed 30 mg PO DAILY 01/18/25 01/18/25 History release evolocumab 140 mg/mL subcutaneous 140 mg SQ MONTHLY 01/18/25 01/18/25 History pen injector (Repatha SureClick) furosemide 40 mg tablet 80 mg PO SUTUTH 01/18/25 01/18/25 History furosemide 40 mg tablet (Lasix) 40 mg PO MOWEFRSA 01/18/25 01/18/25 History rivaroxaban 20 mg tablet (Xarelto) 20 mg PO QPMWITHMEAL 01/18/25 01/18/25 History tirzepatide 10 mg/0.5 mL 10 mg SQ WEEKLY 01/18/25 01/18/25 History subcutaneous pen injector (Mounjaro) amoxicillin 500 mg-potassium 1 tab PO TID 5 days #15 tabs 01/20/25 Rx clavulanate 125 mg tablet (Augmentin) New Prescriptions to Start Prescriptions: amoxicillin-pot clavulanate [Augmentin] Corey Esteban Allergies Allergy/AdvReac Type Severity Reaction Status Date / Time canagliflozin (From Invokana) Allergy Severe blisters Verified 12/24/24 13:13 metformin Allergy Mild Diarrhea, Verified 12/24/24 13:13 nausea, dizziness sitagliptin (From Januvia) Allergy Mild Hives Verified 12/24/24 13:13 linaclotide (From Linzess) Allergy Rash Verified 12/24/24 13:13 metronidazole (From Metrogel) Allergy Rash Verified 12/24/24 13:13 nystatin Allergy Dizziness Verified 12/24/24 13:13 rosuvastatin (From Crestor) Allergy Dizziness Verified 12/24/24 13:13 semaglutide (From Ozempic) AdvReac Severe Abdominal Verified 12/24/24 13:13 Pain atorvastatin (From Lipitor) AdvReac Intermediate body aches Verified 12/24/24 13:13 andmental confusion isosorbide AdvReac Headache Verified 01/20/25 07:27 Assessment and Plan *Assessment and plan (1) Sepsis: Status: Acute Qualifiers: Acute respiratory failure type: with hypoxia Sepsis acute organ dysfunction status: with acute organ dysfunction Sepsis type: sepsis due to unspecified organism Severe sepsis acute organ dysfunction type: acute respiratory failure Severe sepsis shock status: without septic shock Qualified Code(s): A41.9 - Sepsis, unspecified organism; R65.20 - Severe sepsis without septic shock; J96.01 - Acute respiratory failure with hypoxia Category: Medical Code(s): A41.9 - Sepsis, unspecified organism (2) Pneumonia: Status: Acute Qualifiers: Laterality: right Lung location: lower lobe of lung Pneumonia type: due to unspecified organism Qualified Code(s): J18.9 - Pneumonia, unspecified organism Category: Medical Code(s): J18.9 - Pneumonia, unspecified organism (3) PAF (paroxysmal atrial fibrillation): Status: Chronic Category: Medical Code(s): I48.0 - Paroxysmal atrial fibrillation Plan Atrial fibrillation with rapid ventricular response - Known A-fib, typically well-controlled with metoprolol 25 and flecainide 100 mg 3 times daily - mild exacerbation in the setting of sepsis with pneumonia and acute hypoxic respiratory failure - Agree with doubling metoprolol for now as long as BP will tolerate - Goal of heart rate averaging 120s or less is reasonable in the setting of acute hypoxic respiratory failure and sepsis - Recommend 2-week monitor at discharge and we can continue to follow this as an outpatient. - No indication for electrical cardioversion at this CAD - s/p PEACE 2020 - CCS = 0 - Cont Xarelto, BB, Statin HFpEF - LA Dilation, Mod MR, PAF - pt euvolemic here - cont to follow outpatient Sepsis/RLL PNA - per primary service. Please advise if further CV concerns this admission, thank you.
--- NOTE | 2025-01-21 10:01 | SW/DCPLANNER ---
Spoke with patient on the phone. Patient stated that she is doing good. Patient stated that she is aware of her upcoming appointments. Patient stated that she was able to get her new medicine picked up. Patient stated that she is having trouble breathing but she didnt seem like she was struggling on the phone. I suggested that if she had a way of checking her oxygen and if its low then she needs to come back to the hospital. Patient stated that she has no concerns or questions at this time. Pauly Darnell
[2025-01-24 09:10] LABS: POC Glucose,Bedside 139 gm/dL (70-110)
[2025-01-24 09:12] LABS: POC Glucose,Bedside 175 gm/dL (70-110)
== END 2025-01-20 14:43 | disposition home or self-care (01) | DRG 871 ==
LOC: ER 01:53 → 2ND 02:21
PROVIDERS: Internal Medicine Adolescent Medicine; Nurse Practitioner Family; Admitting Provider Student in an Organized Health Care Education/Training Program; Emergency Provider Emergency Medicine; Visit Provider Student in an Organized Health Care Education/Training Program
DX: A41.9 Sepsis, unspecified organism (principal); J15.4 Pneumonia due to other streptococci; N17.9 Acute kidney failure, unspecified; J44.0 Chronic obstructive pulmonary disease with (acute) lower respiratory infection; I50.32 Chronic diastolic (congestive) heart failure; Z68.41 Body mass index [BMI] 40.0-44.9, adult; I48.0 Paroxysmal atrial fibrillation; R65.20 Severe sepsis without septic shock; I11.0 Hypertensive heart disease with heart failure; R19.5 Other fecal abnormalities; R63.4 Abnormal weight loss; E11.40 Type 2 diabetes mellitus with diabetic neuropathy, unspecified; E78.00 Pure hypercholesterolemia, unspecified; K21.9 Gastro-esophageal reflux disease without esophagitis; G47.33 Obstructive sleep apnea (adult) (pediatric); E66.01 Morbid (severe) obesity due to excess calories; I25.10 Atherosclerotic heart disease of native coronary artery without angina pectoris; Z79.899 Other long term (current) drug therapy; Z79.4 Long term (current) use of insulin; Z88.8 Allergy status to other drugs, medicaments and biological substances; Z79.02 Long term (current) use of antithrombotics/antiplatelets; Z79.01 Long term (current) use of anticoagulants; Z95.5 Presence of coronary angioplasty implant and graft
CPT/HCPCS: 0223U; 36415; 71045; 80053; 81001; 82803; 82962; 83605; 83690; 83735; 84100; 85007; 85025; 87040; 87070; 87077; 87186; 87205; 89220; 93005; 93270; 94640; 94761; 97162; 97166; 99285; J1650; J1938; J2543; J3373; J3375; J3475; J7030; J7050; J7120

== ENCOUNTER 2025-01-21 10:47 | Observation (INO) | payer MEDICARE, MEDICAID, SELFPAY ==
[2025-01-21] VITALS (7 sets, daily range): BP systolic 131–161; BP diastolic 71–106; PULSE 92–123; RESP 12–31; TEMP 36.6–36.8; O2SAT 92–96; BMI 32.9; BMI 35.0
--- NOTE | 2025-01-21 10:57 | ECG_ITS ---
APPROVED REPORT Exam: Resting ECG HR:110 bpm ECG Measurements Heart Rate 110 AXES QRSd 92 QRS 94 QT 340 T 9 QTc 405 Conclusion ATRIAL FIBRILLATION WITH RAPID VENTRICULAR RESPONSE BORDERLINE RIGHT AXIS DEVIATION [QRS AXIS > 90] LOW QRS VOLTAGE IN PRECORDIAL LEADS [QRS DEFLECTION < 1.0 mV IN CHEST LEADS] MINIMAL ST DEPRESSION [0.025+ mV ST DEPRESSION] ABNORMAL RHYTHM ECG UNCONFIRMED REPORT Electronically signed by : Corey North, 01/21/2025 15:28:04
--- OUTSIDE RECORDS SUMMARY | 2025-01-21 11:05 | XMS_ITS | Encounter Summary ---
Author Organization [facility] Address [address] [place] [address], [address] [place] [address] Care Team Providers Care Extension Work Director Name Role Phone Alice Rutledge APRN, CNP Primary Care Prov ider Encounter Details Date Type Department Care Team (Late st Contact Info) Description 05/24/2019 FollowUp Telephone Encounter [facility] [address] [place] [address] Tracy Jara Social History Tobacco Use Types [...] documented as of this encounter Care Teams Extension Work Director Relationship Specialty Start Date End Date Alice Rutledge APRN - CNP [address] [address] PCP - General Family Nurse Practitioner 05/19/19 documented as of this encounter
--- OUTSIDE RECORDS SUMMARY | 2025-01-21 11:05 | XMS_ITS | Encounter Summary ---
Author Organization [facility] Address [address] [place] [address], [address] [place] [address] Care Team Providers Care News Department Intern Name Role Phone Alice Rutledge APRN - COUNTER TOP MAKER Primary Care Prov ider Reason for Visit * Reason Comments Medication Refill Encounter Details Date Type Department Care Team (Late st Contact Info) Description 10/19/2019 Refill [facility] Endocrinology [address] [place] [address] Aria Villarreal MD [address] [place], [place] [id number] Medication Refill Social History Tobacco Use Types [...] than three times a week 08/06/2019 Attends [employer] Not on file 08/05 Active Member [...] documented as of this encounter Care Teams News Department Intern Relationship Specialty Start Date End Date Alice Rutledge, FARM OR RANCH ANIMAL CARETAKER - COUNTER TOP MAKER [address] [place] [address] PCP - General Family Nurse Practitioner 05/19/19 documented as of this encounter
--- OUTSIDE RECORDS SUMMARY | 2025-01-21 11:05 | XMS_ITS | Encounter Summary ---
Author Organization Healthcare Address [address] [place] [address] Care Team Providers Care Collection Officer Name Role Phone Reva Lou Primary Care Provider Encounter Details Date Type Department Care Team (Late st Contact Info) Description 12/06/2020 Community [facility] [address] [place] [address] Reva Lou PA [address] [place] [address] Lupus (CMS/HCC) (Primary Dx) Social [...] erythematosus documented in this encounter Care Teams Collection Officer Relationship Specialty Start Date End Date Reva Lou PA [address] [place] [address] PCP - General 09/30/20 documented as of this encounter
--- OUTSIDE RECORDS SUMMARY | 2025-01-21 11:05 | XMS_ITS | Encounter Summary ---
Author Organization [facility] Address [address] [place] [address] Care Team Providers Care Gang Investigator Name Role Phone Nonstaff, Moise LOCKWOOD Primary Care Provider + [phone] Alice Rutledge Primary Care Provider Michelle Solomon MD Unavailable [phone] Michelet Gutierrez MD Unavailable [phone] Gianni Jara MD Unavailable [phone] Christine Blank NP Unavailable Unavailable Encounter Details Date Type Department Care Team (Late st Contact Info) Description 05/27/2019 Abstract [facility] Physicians - Heart & Vascular, [address] [place] [address] Gianni Jara MD [address] [address] Social History Tobacco Use Types Packs/Day Years [...] on filedocumented in this encounter Care Teams Gang Investigator Relationship Specialty Start Date End Date Moise Garcia MD PCP - General 06/05/19 06/22/19 Alice Rutledge PCP - General Nurse Practitioner 06/23/19 Michelle Solomon MD [address] [place] [address] Medical Oncology 07/15/19 Michelet Gutierrez MD [address] [place] [address] Pulmonary Disease 07/15/19 Gianni Jara MD [address] [facility] [address] [place] [id number] Cardiology 07/15/19 Christine Blank NP 5892 [facility] [address] [place] [address] Nurse Practitioner Sleep Medicine 07/15/19 documented as of this encounter
--- OUTSIDE RECORDS SUMMARY | 2025-01-21 11:05 | XMS_ITS | Encounter Summary ---
Author Organization [facility] Address [address] [place] [address], [address] [place] [address] Care Team Providers Care Administrative Office Clerk Name Role Phone Alice Rutledge APRN, CNP Primary Care Prov ider Encounter Details Date Type Department Care Team (Late st Contact Info) Description 05/24/2019 FollowUp Telephone Encounter [facility] [address] [place] [address] Tracy Jara Social History Tobacco Use Types [...] documented as of this encounter Care Teams Administrative Office Clerk Relationship Specialty Start Date End Date Alice Rutledge APRN - CNP [address] [address] PCP - General Family Nurse Practitioner 05/19/19 documented as of this encounter
--- OUTSIDE RECORDS SUMMARY | 2025-01-21 11:05 | XMS_ITS | Encounter Summary ---
Author Organization Marcelo Gotti [facility] Address [address] [place] [address], [address] [place] [address] Care Team Providers Care Link Trainer Mechanic Name Role Phone Alice Rutledge APRN, CNP Primary Care Prov ider Encounter Details Date Type Department Care Team (Late st Contact Info) Description 05/22/2019 FollowUp Telephone Encounter [facility] [address] [place] [address] Tracy Jara Social History Tobacco Use Types [...] documented as of this encounter Care Teams Link Trainer Mechanic Relationship Specialty Start Date End Date Alice Rutledge APRN - CNP [address] [address] PCP - General Family Nurse Practitioner 05/19/19 documented as of this encounter
--- OUTSIDE RECORDS SUMMARY | 2025-01-21 11:05 | XMS_ITS | Clinical Summary ---
Author Organization Healthcare Address [address] [place] [address] Care Team Providers Care Warehouse Distribution Associate Name Role Phone Reva Lou JAMES Primary Care Provider [phone] Allergies Active Allergy Reactions Criticality Noted Date [...] 12/28/2020 Active ergocalciferol (Vitamin D-2) 1.25 MG (18524 UT) capsule Take 1 capsule (50,000 Units) [...] place to sleep or slept in a jail (including now)? No 03/20/2024 Utilities Answer Date [...] (2 - Td or Tdap) 06/18/2022 06/18/2012 [id number] Vaccine ( - season) 2024 UKY-Diabetes: Hemoglobin [...] 6.6(H) <5.7 % 03/19/2024 5:40 PM EDT [facility] Blood Venous blood specimen / Unknown Venipuncture / Unknown 03/19/2024 3:37 PM EDT 03/19/2024 3:58 PM EDT Narrative [facility] - 03/19/2024 5:40 PM EDT HA1C Interpretive Data: Diagnosis of Diabetes: Diabetic > or = 6.5% Pre-diabetic 5.7 to 6.4% Non-diabetic < or = 5.6% Glycemic Targets for Type I and Type II Diabetics: Non- Adults <7.0% Adults <6.0% Children and Adolescents <7.5% Source: [place] [employer]. Standards of medical care in diabetes,2017. Diabetes Care.2017:40 (suppl 1):S1-S135. HbA1c assay performed by an ion-exchange chromatography method that is certified traceable to the DCCT. Santhosh Swenson MD LAB BLOOD ORDERABLES Final R esult [facility] [address] [place] [address] * Hepatitis C Antibody - ED (03/19/2024 12:44 PM EDT) Hepatitis C Antibody Negative Negative 03/19/2024 2:20 PM EDT [facility] Blood Venous blood specimen / Unknown Venipuncture / Unknown 03/19/2024 12:44 PM EDT 03/19/2024 1:29 PM EDT us Zaki Murguia MD LAB BLOOD ORDERABLES Final Resul t Performing Organization Address City/[facility] Co de Phone Number [facility] [address] [place] [address] from Last 3 Months or Most Recently Relevant to Health Maintenance Insurance [facility] MEDICARE [facility] MEDICAID [id number] Advance Directives * Full Code (Latest Code Status on File) Date Activated Date Inactivated Comments 03/19/2024 1:31 PM 03/20/2024 8:13 PM Question Answer Comments Patient has decision-making capacity? Yes Care Teams Warehouse Distribution Associate Relationship Specialty Start Date End Date Reva Lou PA [address] [place] [address] PCP - General 09/30/20
--- OUTSIDE RECORDS SUMMARY | 2025-01-21 11:05 | XMS_ITS | Clinical Summary ---
Author Organization [facility] Address [address] [facility] [address] Care Team Providers Care Singer Back Tender Name Role Phone Pcp, Pending Only MD Primary Care Provider Urszula Sanderson DO Unavailable [phone] Social History Tobacco Use Types Packs/Day Years [...] Maintenance Insurance MEDICARE on file [facility] MEDICARE REPLACEMENT Care Teams Singer Back Tender Relationship Specialty Start Date End Date Pcp, Pending Only, [place], [place] [id number] PCP - General Internal Medicine 08/17/19 [place] [address] [place] [address] 08/17/19
--- OUTSIDE RECORDS SUMMARY | 2025-01-21 11:05 | XMS_ITS | Encounter Summary ---
Author Organization [facility] Address [address] [place] [address], [address] [place] [address] Care Team Providers Care Die Attacher Name Role Phone Alice Rutledge APRN - BANKING OFFICER Primary Care Prov ider Reason for Visit * Reason Comments Medication Refill Encounter Details Date Type Department Care Team (Late st Contact Info) Description 11/05/2019 Refill [facility] Endocrinology [address] [place] [address] Aria Villarreal MD [address] [place], [place] [id number] Medication Refill Social History Tobacco Use Types [...] documented as of this encounter Care Teams Die Attacher Relationship Specialty Start Date End Date Alice Rutledge, [employer]ATING EQUIPMENT TENDER - BANKING OFFICER [address] [address] PCP - General Family Nurse Practitioner 05/19/19 documented as of this encounter
--- NOTE | 2025-01-21 11:06 | XR_ITS ---
FINAL REPORT CLINICAL HISTORY: short of breath COMPARISON: 01/18/2025 FINDINGS: The heart size is mildly enlarged. The film was obtained and lordotic positioning. The mediastinum is normal. There is a calcified granuloma in the right lung base. Atelectasis is noted at the right lung base. There are no pleural effusions. There is no pneumothorax. There is no osseous abnormality. IMPRESSION: Right basilar atelectasis. Reviewed, Interpreted and Dictated by Matthew Silva MD Transcribed by Jimena Ordonez Authenticated and [facility]
--- OUTSIDE RECORDS SUMMARY | 2025-01-21 11:06 | XMS_ITS | Encounter Summary ---
Author Organization [facility] Address [address] [place] [address] Care Team Providers Care Bindery Helper Name Role Phone Alice Rutledge Primary Care Provider [phone] Michelle Solomon MD Unavailable [phone] Michelet Gutierrez MD Unavailable [phone] Gianni Jara MD Unavailable [phone] Christine Blank NP Unavailable Unavailable Encounter Details Date Type Department Care Team (Late st Contact Info) Description 07/13/2019 Orders Only Laboratory [address] [place] [address] Marguerite Bernal [address] [place] [address] Flank pain (Primary Dx) Social History Tobacco [...] LAB CO2 28 22 - 29 mmol/L [facility] Anion Gap 14(H) 5 - 13 mmol/L [facility] Comment:Anion gap calculatio n does not include potassium (K+) value. BUN 22 7 - 25 mg/dL [facility] Creatinine 0.96 0.50 - [...] [email or web address] Calcium 9.4 8.4 - 10.5 mg/dL [facility] GFR MDRD Non Af Amer 58 See Note [facility] Comment: GFR is estimated using Creatinine, age, gender and race. Patient's values should be interpreted as a trend. Between 30 and 90 ml/min/1.73m2, clinical correlation is needed. For additional information: [email or web address] Total Bilirubin 0.2 0.2 - 1.2 mg/dL [facility] AST 16 0 - 30 U/L [facility] EXTER NAL LAB ALT 17 0 - 40 U/L [facility] EX[facility] Alkaline Phosphatase 110 33 - 140 U/L [facility] Total Protein 7.2 6.0 - 8.0 g/dL [facility] Albumin 4.0 3.5 - 5.0 g/dL [facility] Globulin 3.2 2.0 - 3.7 g/dL [facility] Albumin/Globulin Ratio 1.3 1.0 - 2.1 [facility] BUN/Creatinine Ratio 23 [facility] Serum (Serum) 07/13/2019 11: 32 AM EST 07/13/2019 4:35 PM EST Marguerite Bernal CHEMISTRY ORDERABLES Final Resul t [facility] [address] documented in this encounter Visit Diagnoses Diagnosis Flank pain- Primary Abdominal pain, unspecified site documented in this encounter Care Teams Bindery Helper Relationship Specialty Start Date End Date Alice Rutledge PCP - General Nurse Practitioner 06/23/19 Michelle Solomon MD [address] [place] [place] [address] Medical Oncology 07/15/19 Michelet Gutierrze MD [address] [facility] [place] [address] Pulmonary Disease 07/15/19 Gianni Jara MD [address] [facility] [address] [place] [id number] Cardiology 07/15/19 Christine Blank NP [address] [address] Nurse Practitioner Sleep Medicine 07/15/19 documented as of this encounter
--- OUTSIDE RECORDS SUMMARY | 2025-01-21 11:06 | XMS_ITS | Encounter Summary ---
Author Organization [facility] Address [address] [place] [address], [address] [place] [address] Care Team Providers Care Operations Program Manager Name Role Phone Alice Rutledge APRN - LEXY Primary Care Prov ider Reason for Visit * Reason Onset Date Comments Medication Refill 07/27/2019 Encounter Details Date Type Department Care Team (Late st Contact Info) Description 07/27/2019 Refill [facility] [address] [facility] [address] [place] [address] Alice Rutledge, CAITLYN - LOCK TENDER [address] [facility] [address] [place] [address] Medication Refill Social History Tobacco Use Types [...] documented as of this encounter Care Teams Operations Program Manager Relationship Specialty Start Date End Date Alice Rutledge, ANODE ADJUSTER - LOCK TENDER [address] [place] [address] PCP - General Family Nurse Practitioner 05/19/19 documented as of this encounter
--- OUTSIDE RECORDS SUMMARY | 2025-01-21 11:06 | XMS_ITS | Referral Summary ---
Author Organization [facility] Address [address] [facility] [place] [address] Care Team Providers Care Carbon Cleaner Name Role Phone Pcp, Pending Only MD Primary Care Provider Kin Urszula DO Unavailable [phone] Social History Tobacco Use Types Packs/Day Years [...] to Health Maintenance Insurance MEDICARE on file [facility] MEDICARE REPLACEMENT Care Teams Carbon Cleaner Relationship Specialty Start Date End Date Pcp, Pending Only, [place], [place] [id number] PCP - General Internal Medicine 08/17/19 [place] [address] [place] [address] 08/17/19
--- OUTSIDE RECORDS SUMMARY | 2025-01-21 11:06 | XMS_ITS | Clinical Summary ---
Author Organization [facility] Address [address] [place] [address], [address] [place] [address] Care Team Providers Care Gun Sealing Machine Operator Name Role Phone Aamir Alice Elelr APRN - SPINNER IRON Primary Care Prov ider Allergies Active Allergy [...] s:Uncontrolled type 2 diabetes mellitus with hyperglycemia ([facility]),Morbid obesity due to excess calories ([facility]),Neuropathy due to type 2 diabetes mellitus ([facility]) Take 1 capsule by mouth nightly for [...] complication, with long-term current use of insulin ([facility]) Inject 1 pen into the skin daily 100 each 1 Active ondansetron (ZOFRAN-ODT) [address] 1 tablet under the tongue daily as needed for Nausea 30 tablet Active vitamin D (CHOLECALCIFEROL) 59269 UNIT CAPSIndications:V itamin D deficiency Take 1 capsule by mouth once a week 12 capsule 1 020 Active metFORMIN (GLUCOPHAGE) 1000 MG tabletIndications :Type 2 diabetes mellitus with complication, with long-term current use of insulin ([facility]) Take 1 tablet by mouth 2 times [...] Es Mari RN Clinical Performance Nurse [facility] [phone] BPCI-A Patient, will follow for the next [...] disorder) 04/21/2019 Coronary artery disease invo lving [place] coronary artery of [place] heart without angina pectoris 03/04/2019 Neuropathy 03/03/2019 Blockage of coronary artery of heart 02/16/2019 Depression 10/06/2018 Type 2 diabetes mellitus wit h complication, with long-term current use of insulin 10/06/2018 Overview (10/06/2018): dx for 5 years-2013? Gastroesophageal reflux disease 10/06/2018 Personal history of colon cancer 10/06/2018 Mixed hyperlipidemia 10/06/2018 Overview (03/03/2019): Patient is supposed to be on Gemfibrozil 600 mg twice daily per [facility] physician group note from last PCP in [place], [place] on 07/24/2018 PAF (paroxysmal atrial fibrillation) [...] than three times a week 08/06/2019 Attends [employer] Not on file 08/05 Active Member [...] 11:02 PM 08/04/2018 6:42 PM Care Teams Gun Sealing Machine Operator Relationship Specialty Start Date End Date Alice Rutledge, INFORMATICS DEVELOPER - SPINNER IRON [address] [place] [address] PCP - General Family Nurse Practitioner 05/19/19
--- OUTSIDE RECORDS SUMMARY | 2025-01-21 11:06 | XMS_ITS | Clinical Summary ---
Author Organization [facility] Address [address] [place] [address] Care Team Providers Care Set Builder Name Role Phone Damaso Radha CAITLYN Primary Care Provider [phone] Social History Tobacco Use Types Packs/Day Years [...] HEPATITIS C SCREENING Completed 03/19/2024, 019 Insurance [facility] MEDICARE ADVANTAGE SNP PPO Care Teams Set Builder Relationship Specialty Start Date End Date Radha Petit APRN [address] [facility] [place] [address] PCP - General Family Medicine 08/18/24
--- OUTSIDE RECORDS SUMMARY | 2025-01-21 11:06 | XMS_ITS | Patient Health Record ---
Author Organization [facility] Address [address] [address] Care Team Providers Care Circuit Court Judge Name Role Phone Aamir PUGH Alice Primary Care Provider Unav ailable Doan, Gustavo Unavailable [phone] Reason For Referral No Information Medications Medication SIG (Take, Route, Frequency, Duration) Notes Start Date End Date Status Famotidine 20 MG Tablet Famotidine 20MG, 1 (one) Tablet daily # 30, 10/27/2019, Ref. x1. Active Oral daily; Duration: 30 10/27/2019 Active Vitamin D3 1.25 MG (83694 UT) Capsule Vitamin D3( 1.25 MG(43032 UT) Oral 33460 U ) Active -Hx Entry Oral; Duration: [...] Duration: 0 Qty: 90 04/21/2019 Active Pen [place] Pen [place]( ) Activ e -Hx Entry; Duration: 0 [...] Administered ,ImmunizationNam e,' : Influenza,trivalent,s easonal,adj.,non preservative (73114) ,Status,' : Complete Pneumococcal polysaccharide PPV23 Unknown 02/24/2019 Administered ,Immunizati onName,' : Pneumococcal (2 yrs and up) PPSV23 (84671) ,Status,' : Complete Zoster Unknown 03/13/2019 Administered ,Immunizatio nName,' : Zoster (shingles), recombinant, sub-unit, IM (01134) ,Status,' : Complete Zoster Unknown 05/16/2019 Administered ,Immunizatio nName,' : Zoster (shingles), recombinant, sub-unit, IM (21023) ,Status,' : Complete Social History Social History Additional Details Category Social Info Options Details Migrated Social History Migrated Social History Alcohol use, Active, Attribute Title : Never,, Tobacco use, Active, Attribute Title : Former smoker, Problems Problem Type SNOMED Code ICD Code Onset Dates Problem Status W/U Status Risk Notes Problem Disorder due to type 2 diabetes mellitus (786150578) Type 2 diabetes mellitus with unspecified complications (E11.8) 2018 Active confirmed Problem Vitamin D deficiency (57206778) Vitamin D deficiency, unspecified (E55.9) 2019 Active confirmed Problem Morbid obesity (disorder) (299406655) Morbid (severe) obesity due to excess calories (E66.01) 2019 Active confirmed Problem Obesity (340442448) Obesity, unspecified (E66.9) 2019 Active confirmed Problem Generalized anxiety disorder (36043609) Generalized anxiety disorder (F41.1) 2018 Active confirmed Problem Obstructive sleep apnea syndrome (disorder) (21092894) Obstructive sleep apnea (adult) (pediatric) (G47.33) 2019 Active confirmed Problem Polyneuropathy (59648435) Polyneuropathy, unspecified (G62.9) 2018 Active confirmed Problem Paroxysmal atrial fibrillation (222713803) Paroxysmal atrial fibrillation (I48.0) Active confirmed Problem Atrial flutter (4640711) Unspecified atrial flutter (I48.92) 2019 Active confirmed Problem Cerebral infarction (209761539) Cerebral infarction, unspecified (I63.9) 2018 Active confirmed Problem Pneumonia (159921011) Pneumonia, unspecified organism (J18.9) 2019 Problem resolved confirmed Problem Acute pulmonary edema (49173985) Acute pulmonary edema (J81.0) 2019 Active confirmed Problem Gastro-esophagea l reflux disease without esophagitis (186616332) Gastro-esophage al reflux disease without esophagitis (K21.9) 2018 Active confirmed Problem Functional dyspepsia (2045502) Functional dyspepsia (K30) Active confirmed Had detailed discussion of gastroparesis diet. Emailed handout to her second time. On limited income, it's difficult for her to acquire the foods she needs to eat at this time, so spent extra time discussing how to eat foods. Continued Reglan. Discussed safe usage. She understands to stop if involuntary movements occur. Tight glycemic control emphasized, sees standard machine stitcher virtually next week Manage constipation This was [...] in collaboration with Dr. Doan Problem Constipation (18600640) Constipation, unspecified (K59.00) Active confirmed Recommend daily [...] with Dr. Doan Problem Shortness of breath (258440748) Shortness of breath (R06.02) Active confirmed Problem Chest pain (57511078) Chest pain, unspecified (R07.9) 2018 Problem resolved confirmed Problem Abdominal pain (58259877) Unspecified abdominal pain (R10.9) Active confirmed Patient [...] tolerated. Problem Therapeutic drug monitoring, quantitative (regime/therapy) (57007806) Encounter for therapeutic drug level monitoring (Z51.81) Active confirmed Problem Health status (003800981) Other specified health status (Z78.9) 2019 Active confirmed Problem History of polyp of colon (situation) (133609485) Personal history of colonic polyps (Z86.010) Active confirmed Patient with history of advanced adenoma versus endoscopically resected colon cancer. Will obtain colonosc records with pathology. Patient has relocated to [place] and wishes to pursue further surveillance here at [facility]. Will schedule for surveillance colonoscopy. Problem Type II diabetes mellitus without complication (422861164) Type 2 diabetes mellitus without complications (E11.9) 2018 Problem resolved confirmed Problem Hyperglycemia due to type 2 diabetes mellitus (788345431769077 ) Type 2 diabetes mellitus with hyperglycemia (E11.65) 2019 Active confirmed Problem Type 2 diabetes mellitus with other specified complication (E11.69) 2019 Active confirmed Problem Diabetic peripheral neuropathy associated with type 2 diabetes mellitus (9172791080034) Type 2 diabetes mellitus with diabetic neuropathy, unspecified (E11.40) 2019 Active confirmed Problem Chronic diastolic heart failure (542347191) Chronic diastolic (congestive) heart failure (I50.32) 2019 Active confirmed Problem Mixed hyperlipidemia (880863333) Mixed hyperlipidemia (E78.2) 2018 Active confirmed Problem Essential hypertension (86070125) Essential (primary) hypertension (I10) 2019 Active confirmed Problem Atrial fibrillation (96534043) Unspecified atrial fibrillation (I48.91) 2019 Active confirmed Problem History of malignant neoplasm of colon (642698861) Personal history of malignant neoplasm of large intestine (Z85.038) 2018 Active confirmed Problem Peripheral circulatory disorder associated with diabetes mellitus (093550021) Type 2 Diabetes Mellitus With Oth Circulatory Complications (E11.59) 2019 Active confirmed Problem Depression (419655590) Depression, unspecified (F32.A) 2018 Active confirmed Problem Other specified disease of esophagus (K22.89) Active confirmed Patient with ct showing distal esophageal thickening. Suspect reflux esophagitis versus vomiting esophagitis. Will schedule for EGD to evaluate for esophageal malignancy versus Toney's esophagus. Continue Dexilant. Problem Patent foramen ovale (427633747) Patent foramen ovale (Q21.12) Active confirmed Problem Acute coronary artery occlusion not resulting in myocardial infarction (07253224775635) Acute coronary thrombosis not resulting in myocardial infrc (I24.0) 2018 Active confirmed Problem Atherosclerosis of coronary artery without angina pectoris (193140707589513 ) Athscl heart disease of [place] coronary artery w/o ang pctrs (I25.10) 2018 Active confirmed Problem History of cerebrovascular accident without residual deficits (635286918) Prsnl hx of TIA (TIA), and cereb infrc w/o resid deficits (Z86.73) Active confirmed Plan Of Treatment No Information Insurance Providers Payer Name Payer Address Payer Phone Subscriber Number Group Number Insured Name Patient Relationship to Insured Coverage Start Date Coverage End Date [facility] [address] [place] [address] [phone] [id number] OHDSNP Yenni Shinh Self - patient is the insured [place] [address] [place] [address] [id number] Yenni Shinh Self - patient is the insured [facility] [place] [address] [place] [address] [id number] Yenni Shinh Self - patient is the insured Medicare B [place] [address] [address] [id number] Yenni Shinh Self - patient is the insured Medical (General) History Surgical History Surgery Date(Month/Year) hystrectomy, Active, Gallbladder Surgery, Active, cholecystectomy, Active,
--- OUTSIDE RECORDS SUMMARY | 2025-01-21 11:06 | XMS_ITS | Clinical Summary ---
Author Organization [facility] Address [address] [place] [address] Care Team Providers Care Critical Systems Technician Name Role Phone Alice Rutledge Primary Care Provider Michelle Solomon MD Unavailable [phone] Michelet Gutierrez MD Unavailable Gianni Jara MD Unavailable [phone] Christine Blank NP Unavailable Unavailable Allergies Active Allergy Reactions Criticality Noted Date Comments Canagliflozin 08/01/2018 Other reaction(s): Unknown Linaclotide 03/03/2019 Metronidazole 03/03/2019 Nystatin 03/03/2019 dizziness Euuucgu-Who-Zqy Reductase Inhibitors 08/01/2018 Other reaction(s): Unknown Medications [...] flutter 06/05/2019 Coronary artery disease invo lving [place] coronary artery of [place] heart without angina pectoris 06/05/2019 Essential hypertension [...] Comments Father alzheimer alzheimer Mother (Age 67) [place] Social History Tobacco Use Types Packs/Day Years [...] Assessment 2018 Breast Cancer Screening 07/24/2020 07/24/2018 Osteoporosis Screening 02/14/2024 02/13/2019, 2018 Advance Care Planning 05/20/2024 Depression Screening 05/20/2024 Diabetes Mellitus Microalbum in (Yearly) 05/20/2024 Renal Monitoring 05/20/2024 08/17/2019, , 06/26/2019, Additional history exists Diabetes A1c Monitoring 09/16/2024 03/19/2024 COVID-19 Vaccine (1 - 2023-2 5 season) 2025 Influenza Vaccination (#1) 2025 Lipid Monitoring 03/20/2025 [...] value. BUN 22 7 - 25 mg/dL [facility] Creatinine 0.96 0.50 - 1.20 [...] LAB Albumin/Globulin Ratio 1.3 1.0 - 2.1 [facility] BUN/Creatinine Ratio 23 [facility] Serum (Serum) 07/13/2019 11: 32 AM EST 07/13/2019 4:35 PM EST Marguerite Bernal CHEMISTRY ORDERABLES Final Resul t [facility] [address] [place] [address], [facility] from Last 3 Months or Most Recently Relevant to Health Maintenance Insurance [facility] [place] [facility] [place] [facility] [place] Care Teams Critical Systems Technician Relationship Specialty Start Date End Date Alice Rutledge PCP - General Nurse Practitioner 06/23/19 Michlele Solomon MD [address] [place] [address] Medical Oncology 07/15/19 Michelet Gutierrez MD [address] [place] [address] Pulmonary Disease 07/15/19 Gianni Jara MD [address] [facility] [address] [place], [place] [id number] Cardiology 07/15/19 Christine Blank NP [address] [facility] [address] [place] [address] Nurse Practitioner Sleep Medicine 07/15/19
--- NOTE | 2025-01-21 11:10 | ED_ITS ---
<Statement entered by Catrachita North MD - 01/21/25 15:26> I was consulted by the RAMIN, and we discussed the complexity of the problems being addressed. I approved the treatment and management plan for this patient's care in the emergency department, thus performing a substantive portion of the medical decision making. Catrachita North MD, NIRMALA, FACEP Discharge Plan Disposition Patient Disposition: Admitted Clinical Impressions Clinical Impression: COPD (chronic obstructive pulmonary disease) Qualifiers: COPD type: unspecified COPD Qualified Code(s): J44.9 - Chronic obstructive pulmonary disease, unspecified Pneumonia Qualifiers: Pneumonia type: due to unspecified organism Laterality: right Lung location: l ower lobe of lung Qualified Code(s): J18.9 - Pneumonia, unspecified organism CHF (congestive heart failure) Qualifiers: Heart failure type: unspecified Heart failure chronicity: unspecified Qualified Code(s): I50.9 - Heart failure, unspecified Discharge ED Provider: Catrachita North HPI <Carolyn Magdaleno (ED), [employer] - Last Filed: 01/21/25 15:11> General Chief Complaint: Shortness of Breath/Dyspnea Stated Complaint: Difficulty breathing Time Seen by Provider: 01/21/25 10:53 Mode of Arrival: EMS Source of Information: Patient and EMS Description of Symptoms (Recalled from ER Triage Doc. by RN): WAS DISCHARGED FROM THE HOSPITAL YESTERDAY WITH PNA. WOKE UP THIS MORNING WITH SOA, HX OF AFIB, HR CURRENTLY 123. History of Present Illness HPI narrative: 69-year-old female presents to the ED via EMS for increased shortness of air with exertion. Patient was diagnosed with pneumonia and A-fib RVR. She was placed on antibiotics and flecainide both in the hospital yesterday. Patient was admitted to [facility] 01/18/2025 and was discharged 01/20/2025. She woke up and was having difficulty breathing so called EMS this morning. 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 She does complain of diarrhea as well. She says this is likely due to all the antibiotics she has been taking. Patient's medications were changed while she was in the hospital. Her metoprolol was also changed to 25 twice a day. Cardiology did see her while she was in the hospital and is aware that her heart rate has been slightly tachycardic at 120. They okayed her to go home with heart rate less than 120 on medication. She is on a 2-week event monitor currently and has a follow-up with cardiology in 1 week. Related Data Home Medications ?Medication ?Instructions ?Recorded ?Confirmed insulin lispro 100 unit/mL 0 sliding scale dose SQ AC Diabetes 03/19/23 01/21/25 subcutaneous pen famotidine 20 mg tablet 20 mg PO HS 08/07/24 5 flecainide 100 mg tablet 100 mg PO BID 08/07/2401/21 dexlansoprazole 60 mg 60 mg PO DAILY 09/28/2409/11 capsule,biphase delayed release insulin degludec 100 unit/mL (3 45 unit SQ HS 11/24/24 01/21/25 mL) subcutaneous pen (Tresiba FlexTouch U-100 insulin) duloxetine 30 mg capsule,delayed 30 mg PO DAILY 01/21/25 release evolocumab 140 mg/mL subcutaneous 140 mg SQ MONTHLY 01/21/25 pen injector (Anurag Munson) furosemide 40 mg tablet 80 mg PO SUTUTH 01/18/2509/11 furosemide 40 mg tablet (Lasix) 40 mg PO MOWEFRSA 06/1301/21/25 rivaroxaban 20 mg tablet (Xarelto) 20 mg PO QPMWITHMEA L 01/18/25 01/21/25 tirzepatide 10 mg/0.5 mL 10 mg SQ WEEKLY 01/18/2509/11 subcutaneous pen injector (Laney) Previous Rx's ?Medication ?Instructions ?Recorded ergocalciferol (vitamin D2) 1,250 1,250 mcg PO WEEKLY #14 caps 08/03/24 mcg (50,000 unit) capsule memantine 7 mg capsule 7 mg PO DAILY #90 ea 5 sprinkle,extended release 24hr losartan 50 mg tablet 50 mg PO DAILY #90 tabs 06/13 blood-glucose sensor (Dexcom G7 #14 ea 11/02/24 Sensor device) montelukast 10 mg tablet 10 mg PO HS #90 tabs 5 (Singulair) cholecalciferol (vitamin D3) 50 50 mcg PO DAILY #90 ca ps 11/12/24 mcg (2,000 unit) capsule clopidogrel 75 mg tablet 75 mg PO DAILY #90 tabs 07/14 dapagliflozin propanediol 10 mg 10 mg PO DAILY #90 tab s 12/24/24 tablet (Farxiga) amoxicillin 500 mg-potassium 1 tab PO TID 5 days #15 t abs 01/20/25 clavulanate 125 mg tablet (Augmentin) metoprolol succinate 25 mg 25 mg PO BID 30 days #60 ta bs 01/20/25 tablet,extended release 24 hr Allergies Allergy/AdvReac Type Severity Reaction Status Date / Time canagliflozin (From Invokana) Allergy Severe blisters Verified 12/24/24 13:13 metformin Allergy Mild Diarrhea, Verified 12/24/24 13:13 nausea, dizziness sitagliptin (From Januvia) Allergy Mild Hives Verified 12/24/24 13:13 linaclotide (From Linzess) Allergy Rash Verified 12/24/24 13:13 metronidazole (From Metrogel) Allergy Rash Verified 12/24/24 13:13 nystatin Allergy Dizziness Verified 12/24/24 13:13 rosuvastatin (From Crestor) Allergy Dizziness Verified 12/24/24 13:13 semaglutide (From Ozempic) AdvReac Severe Abdominal Verified 12/24/24 13:13 Pain atorvastatin (From Lipitor) AdvReac Intermediate body aches Verified 12/24/24 13:13 andmental confusion isosorbide AdvReac Headache Verified 01/20/25 07:27 PFS <Carolyn Magdaleno (ED), [employer] - Last Filed: 01/21/25 15:11> [facility] Disclaimer: The information contained in this section may have been updated after the patient was seen, as this information can be updated by other users. Medical History Mini stroke Ganglion cyst of hand tendon excised Irritable bowel syndrome with mixed bowel habits Colon cancer screening Breast cancer screening by mammogram Diabetes mellitus Upper abdominal pain Abnormal echocardiogram Interatrial cardiac shunt Angina pectoris Wellness examination Memory loss CVA (cerebral vascular accident) Chest pain Body mass index (BMI) of 40.1 to 44.9 in adult Family history of Van Buren's disease Ganglion cyst of left foot Typical angina Diabetic gastroparesis Vomiting Bilateral impacted cerumen Pain, gastric Gastritis Cholelithiasis Gallstones Gastroparesis Dyspnea Chest pain Onychoincurvatum Onychodystrophy Trigger finger of right hand Tendinitis of right peroneus brevis tendon Foot pain, right Insulin dependent diabetes mellitus with complications Plantar fasciitis, left Foot pain, left Onychogryposis of toenail Asymptomatic hypertension Dizziness Chest pain Epigastric abdominal pain Dehydration Abnormal cardiovascular stress test Low blood pressure reading Atypical chest pain Myalgia due to statin Fracture of fifth metatarsal bone of right foot with delayed healing Cardiac arrhythmia Sinus bradycardia Back pain Obesity, Class III, BMI 40-49.9 (morbid obesity) Labile essential hypertension TOMAS (obstructive sleep apnea) Ear itching Allergic rhinitis Breast cyst Ganglion cyst Dermoid cyst of head Diabetes mellitus, type 2 Neck pain Moderate mitral regurgitation Mood disorder Obesity HTN (hypertension) COPD (chronic obstructive pulmonary disease) GERD (gastroesophageal reflux disease) Neuropathy Anxiety Restless leg syndrome Surgical History Hx of removal of cyst S/P coronary artery stent placement Status post trigger finger release History of cholecystectomy History of hysterectomy History of colonoscopy Family History Family history of Van Buren's disease Family history of Alzheimer's disease Family history of myocardial infarction Social History Smoking Status: Never smoker second hand exposure: Yes alcohol intake: never counseling provided: provider counseling substance use type: former substance user, marijuana and crack/cocaine counseling given: No (former user) current occupational status: retired Travel in the last 8 weeks?: None household members: children housing: house lives independently: Yes marital status: legally education level: high school current occupational exposures/hazards: No caffeine: No special lex needs: No agree to transfusion: No do you feel safe at home: Yes victim of physical abuse: No victim of emotional abuse: No victim of sexual abuse: No would you like helpful sources: No Have you lived/traveled outside [place] in past 30 days?: No Contact w/someone who lives/traveled outside US past 30 days?: No Exposure to someone with infectious disease in past 14 days?: No Do you have a fever (greater than 100.4 F or 38 C)?: No Have you tested positive for COVID-19?: No Exposed to someone with COVID-19 in past 14 days?: No Do you have a sore throat?: No Do you have a cough?: No Do you have any weakness?: No Do you have any diarrhea?: No Are you experiencing any unusual bleeding?: No Do you have any muscle aches/pain?: No Do you have any abdominal pain?: No Are you experiencing loss of taste or smell?: No Other Medical History Have you received the Flu Vaccine for this season: No Have you received the Pneumonia Vaccine: No <[facility] ([facility] [employer] - Last Filed: 01/21/25 15:11> ROS Obtained: Yes Systems reviewed as appropriate & no additional complaints except as documented Constitutional Constitutional: Reports as per HPI Physical Exam <[facility] ([facility]), [employer] - Last Filed: 01/21/25 15:11> General General appearance: alert Head Head exam: normocephalic Eye Eye exam: Present PERRL and EOMI ENT ENT exam: Present normal oropharynx and mucous membranes moist Neck Neck exam: Present full ROM and trachea midline Respiratory Respiratory exam: Present other (Rhonchi throughout lung jaime) Cardiovascular Cardiovascular exam: Present irregular rhythm Abdominal Exam Abdominal exam: Present soft and normal bowel sounds Extremities Exam Extremities exam: Present normal inspection, full ROM and normal capillary refill Neurological Exam Neurological exam: Present alert and oriented X3 Skin Skin exam: Present warm, dry and intact HEART Score <[facility] ([facility] [employer] - Last Filed: 01/21/25 15:11> HEART Score HEART Score assessment performed?: Yes History (anamnesis): Moderately suspicious ECG: Non-specific disturbance Age: >65 years Risk factors: 3 or more risk factors Troponin: </= normal limit HEART Score: 6 Critical Care <[facility] (ED), [employer] - Last Filed: 01/21/25 15:11> Critical Care Time Critical Care Time: No Medical Decision Making <[facility] (ED), [employer] - Last Filed: 01/21/25 15:11> Marco A Inquiry Pt receiving controlled substance: No Marco A was queried for this patient: No Vital Signs Vital Signs: 01/21/25 10:51 01/21/25 11:00 01/21/25 11:30 Temperature 98.2 F Temperature Source Oral Pulse Rate 107 H Pulse Rate [Right Brachial] 123 H Respiratory Rate 20 31 H 30 H Blood Pressure 161/106 H 142/88 H Blood Pressure [Right Arm] 153/101 H Blood Pressure Mean [Right Arm] 118 02 Sat by Pulse Oximetry 95 96 Oxygen Delivery Method Nasal Cannula Oxygen Flow Rate (LPM) 2 Lab Data Labs: Lab Results 01/21/25 11:07: WBC 13.6 H, RBC 4.75, Hgb 13.7, Hct 41.8, MCV 88.0, MCH 28.8, MCHC 32.8, RDW 13.6, Plt Count 369 D, MPV 9.8, Neut % (Auto) 75.7, Lymph % (Auto) 10.5, Spencer % (Auto) 8.7, Eos % (Auto) 0.5, Baso % (Auto) 0.7, Neut # (Auto) 10.3 H, Lymph # (Auto) 1.4, Spencer # (Auto) 1.2 H, Eos # (Auto) 0.1, Baso # (Auto) 0.1, Total Counted 100, Neutrophils % (Manual) 80 H, Lymphocytes % (Manual) 15, Monocytes % (Manual) 4, Eosinophils % (Manual) 1, Platelet Estimate Normal, RBC Morphology Normal, ESR 65 H, PT 13.1 H, INR 1.20 H, APTT 29.7, VBG pH 7.33, VBG pCO2 49.9, VBG pO2 39.5, VBG HCO3 25.6, VBG Total CO2 27.1 H, VBG O2 Saturation 69.3, VBG Base Excess -0.4, VBG Lactic Acid 1.9, Sodium 138, Potassium 4.0, Chloride 105, Carbon Dioxide 26, BUN 20 H, Creatinine 0.80, Estimated Creat Clear 73, Estimated GFR 71, Est GFR ( Amer) 86, Glucose 169 H, Calcium 9.2, Magnesium 1.8, Total Bilirubin 0.7, AST 24, ALT 17, Alkaline Phosphatase 113, Troponin I 0.02, NT-Pro-B Natriuret Pep 84279 H, Total Protein 7.3, Albumin 3.6 D, Globulin 3.7 H, Albumin/Globulin Ratio 1.0 L, Lipase 52 01/21/25 11:15: SARS-CoV-2 (PCR) Not detected, Influenza A Untype (PCR) Not detected, Influenza Type B (PCR) Not detected 01/21/25 11:42: Urine Color Yellow, Urine Appearance Clear, Urine pH 6.0, Ur Specific [place] 1.010, Urine Protein Negative, Urine Glucose (UA) 3+, Urine Ketones 1+, Urine Blood Negative, Urine Nitrate Negative, Urine Bilirubin Negative, Urine Urobilinogen 0.2, Ur Leukocyte Esterase Negative, Urine RBC None, Urine WBC Occasional, Ur Squamous Epith Cells 5-10, Ur Renal Epithelial Cell 3-5, Urine Bacteria 1+ 01/21/25 14:08: Troponin I 0.01 01/21/25 11:07 01/21/25 11:07 Response Orders (Tests/Meds): ED MEDICATIONS Generic Name Dose Route Start Last Admin Trade Name Freq PRN Reason Stop Dose Admin Clopidogrel Bisulfate 75 mg 01/22/25 09:00 Clopidogrel 75mg Tab PO 02/21/25 08:59 DAILY [facility] Dapagliflozin 10 mg 01/22/25 09:00 Dapagliflozin Propanediol 10 Mg Tablet PO 02/21/25 08:59 DAILY [facility] Duloxetine HCl 30 mg 01/22/25 09:00 Duloxetine 30mg Capsule.Dr PO 02/21/25 08:59 DAILY [facility] Famotidine 20 mg 01/21/25 21:00 Famotidine 20mg Tablet PO 02/20/25 20:59 HS [facility] Flecainide Acetate 100 mg 01/21/25 21:00 Flecainide 50mg Tablet PO 02/20/25 20:59 BID [facility] Vancomycin/PEG/NADA/Lysine/Water 1.75 gm in 350 mls @ 175 mls/hr 01/21/25 15:00 Vancomycin 1.75gm/350ml (Peg) Premix IV 01/31/25 14:59 Q24H [facility] Insulin Glargine 30 unit 01/21/25 21:00 Insulin Glargine 100 Units/Ml 3ml Flexpen SUBCUT 02/20/25 20:59 HS [facility] Insulin Human Lispro 0 unit 01/21/25 16:30 Humalog 100 Units/Ml 10ml Vial (Ssi) SUBCUT 02/20/25 16:29 ACHS [facility] Protocol Memantine 5 mg 01/21/25 21:00 Memantine 10mg Tablet PO 02/20/25 20:59 BID [facility] Metoprolol Succinate 25 mg 01/21/25 21:00 Metoprolol Succinate Xl 25mg Tablet PO 02/20/25 20:59 BID [facility] Montelukast Sodium 10 mg 01/21/25 21:00 Montelukast Sodium 10mg Tab PO 02/20/25 20:59 HS [facility] Rivaroxaban 20 mg 01/21/25 17:30 Rivaroxaban 10mg Tablet PO 02/20/25 17:29 QPMWITHMEAL [facility] Discontinued Medications Generic Name Dose Route Start Last Admin Trade Name Cristianq PRN Reason Stop Dose Admin Bumetanide 2 mg 01/21/25 14:06 Bumetanide 1mg/4ml Vial IV 01/21/25 14:07 ONCE ONE Magnesium Sulfate 2 gm in 50 mls @ 50 mls/hr 01/21/25 11:06 01/21/25 14:17 Magnesium Sulfate 2gm/50ml Premix IV 01/21/25 12:05 Infused ONCE ONE Infusion Sodium Chloride 2,690 mls @ 1,345 mls/hr 01/21/25 11:06 01/21/25 13:25 Sod Chlor 0.9% 1000ml Bag 30 ml/kg infuse over 2 hr (2690 ml) 01/21/25 13:05 999 mls/hr IV Infusion .Q2H ONE Protocol Ceftriaxone Sodium 2 gm/ 50 mls @ 100 mls/hr 01/21/25 13:26 01/21/25 14:33 Sodium Chloride IV 01/21/25 13:55 100 mls/hr ONCE ONE Administration Azithromycin 500 mg/ Sodium 250 mls @ 250 mls/hr 01/21/25 13:27 Chloride IV 01/21/25 13:28 ONCE ONE Iopamidol 80 ml 01/21/25 12:15 01/21/25 12:17 Iopamidol-370 (76%);100ml Bottle IV 01/21/25 12:16 80 ml ONCE ONE Administration Metoprolol Tartrate 2.5 mg 01/21/25 14:11 Metoprolol Tartrate 5mg/5ml Vial IV 01/21/25 14:12 ONCE ONE Miscellaneous 1 each 01/21/25 15:00 Vancomycin Consult Request NOTAPPLIC 02/20/25 14:59 CONSULT PHARMACY [facility] Sodium Chloride 10 ml 01/21/25 12:15 09/04/25 12:17 Sodium Chloride 0.9% 10ml Syr (Rad Only) IV 01/21/25 12:16 10 ml ONCE ONE Administration Sodium Chloride 50 ml 01/21/25 12:15 01/21/25 12:17 0.9 % Sodium Chloride 50 Ml Vial IV 01/21/25 12:16 50 ml ONCE ONE Administration ORDERS Category Date Time Status CT abdomen pelvis w con Stat Cat Scan 01/21/25 11:27 Completed CTA Chest [CT angio chest PE protocol] Stat Cat Scan 01/21/25 11:25 Completed Chest XR -- portable [XR chest portable] Stat Exams 01/21/25 11:06 Completed Activated Partial Thrombo Time Stat Lab 01/21/25 11:07 Completed BNP [NT Pro Brain Natriuretic Pep.] Stat Lab 01/21/25 11:07 Completed C-Reactive Protein Stat Lab 01/21/25 11:07 Results CBC [Complete Blood Count Auto Diff] Stat Lab 01/21/25 11:07 Completed Complete Blood Count Auto Diff AMLAB Lab 01/22/25 06:00 Ordered Comprehensive Metabolic Panel AMLAB Lab 01/22/25 06:00 Ordered Comprehensive Metabolic Panel Stat Lab 01/21/25 11:07 Results D-Dimer Stat Lab 01/21/25 11:07 Received Diarrhea 6-11 Panel, Cdiff PCR Stat Lab 01/21/25 11:08 Ordered Erythrocyte Sedimentation Rate Stat Lab 01/21/25 11:07 Completed Lipase Stat Lab 01/21/25 11:07 Results Magnesium AMLAB Lab 01/22/25 06:00 Ordered Magnesium Stat Lab 01/21/25 11:07 Results Prothrombin Time INR Stat Lab 01/21/25 11:07 Completed Rapid PCR Covid and Flu A/B Stat Lab 01/21/25 11:15 Completed Trop I [Troponin I] Stat Lab 01/21/25 11:07 Results Troponin I Q3H Lab 01/21/25 14:08 Completed Troponin I Q3H Lab 01/21/25 17:15 Ordered Urinalysis and Microscopic Stat Lab 01/21/25 11:42 Completed Blood Culture Stat Micro 01/21/25 11:22 Received Venous Blood Gas Stat RT 01/21/25 11:07 Completed MDM Narrative Medical Decision Narrative: patient is a 69-year-old female presenting to the emergency department for evaluation of increased shortness of breath with exertion that started again this morning. Patient states that she feels much worse today. She states that she is worse than she was when she left the hospital. Patient states that she is just having difficulty breathing and she is having diarrhea. She says she picked up her meds and took them. Patient is stable with blood pressure but is very tachypneic on arrival along with elevated heart rate in the 120s in A-fib. Differential diagnosis includes COPD exacerbation, CHF exacerbation. Workup will be conducted with hematologic labs, specific imaging, provocative tests. Initial inventions include crystalloid bolus however did not do the full sepsis bolus as patient does have CHF. Patient's BNP was 14,000, white count was 13.6. Patient imaging does show pleural effusion and pneumonia. Patient curb score was 3 which gives her a 14% 30-day mortality rate. Patient on reexamination continues to be exertionally short of breath. She tried to go to the bathroom and her oxygen dropped to 80%. Dr. North did evaluate patient as well. Dr. North discussed with hospital medicine for admission. This is Dr. North at 1:29 PM I reviewed patient's imaging ultimately patient had a CT scan because her chest x-ray on admission most recently she was septic was not that impressive. Scan of her chest abdomen pelvis were performed I personally interpreted there is some abdominal pelvic ascites which is nonspecific but on scan of her chest she has a dense right middle and lower lobe consolidation with a parapneumonic effusion appears to be worse than the recent chest x-ray however radiographic findings can certainly lag clinically. Clinically the patient is much worse she is very tachypneic on my exam breathing 30+ times a minute only able to speak in single to several word sentences without taking a deep breath. Oxygen saturations on exertion in the ED dropped to 81% on room air she is 90% on room air at rest. She was placed back on 2 L nasal cannula oxygen saturations in the mid 90s. Patient also states that she significantly worsen at home and at home are still without oxygen and just feels like that she cannot care for herself. Therefore I believe she needs to come back in the hospital cultures have been resent Rocephin and azithromycin have been initiated in the emergency department I spoke with Alice who will discuss the case with hospital medicine for further evaluation and management. Additionally patient's curb 65 score is 3 indicates a 14% 30-day mortality make the patient moderate to high risk even considering the possibility of admitting her into the ICU. She is hemodynamically stable and not in septic shock at the moment. Not requiring high amounts of oxygen supplementation. Other than a moderately elevated BNP which is nonspecific no other significant abnormalities on findings. <Catrachita North MD - Last Filed: 01/21/25 13:31> Vital Signs Vital Signs: 01/21/25 10:51 01/21/25 11:00 01/21/25 11:30 Temperature 98.2 F Temperature Source Oral Pulse Rate 107 H Pulse Rate [Right Brachial] 123 H Respiratory Rate 20 31 H 30 H Blood Pressure 161/106 H 142/88 H Blood Pressure [Right Arm] 153/101 H Blood Pressure Mean [Right Arm] 118 02 Sat by Pulse Oximetry 95 96 Oxygen Delivery Method Nasal Cannula Oxygen Flow Rate (LPM) 2 Lab Data Labs: Lab Results 01/21/25 11:07: WBC 13.6 H, RBC 4.75, Hgb 13.7, Hct 41.8, MCV 88.0, MCH 28.8, MCHC 32.8, RDW 13.6, Plt Count 369 D, MPV 9.8, Neut % (Auto) 75.7, Lymph % (Auto) 10.5, Spencer % (Auto) 8.7, Eos % (Auto) 0.5, Baso % (Auto) 0.7, Neut # (Auto) 10.3 H, Lymph # (Auto) 1.4, Spencer # (Auto) 1.2 H, Eos # (Auto) 0.1, Baso # (Auto) 0.1, Total Counted 100, Neutrophils % (Manual) 80 H, Lymphocytes % (Manual) 15, Monocytes % (Manual) 4, Eosinophils % (Manual) 1, Platelet Estimate Normal, RBC Morphology Normal, ESR 65 H, PT 13.1 H, INR 1.20 H, APTT 29.7, VBG pH 7.33, VBG pCO2 49.9, VBG pO2 39.5, VBG HCO3 25.6, VBG Total CO2 27.1 H, VBG O2 Saturation 69.3, VBG Base Excess -0.4, VBG Lactic Acid 1.9, Sodium 138, Potassium 4.0, Chloride 105, Carbon Dioxide 26, BUN 20 H, Creatinine 0.80, Estimated Creat Clear 73, Estimated GFR 71, Est GFR ( Amer) 86, Glucose 169 H, Calcium 9.2, Magnesium 1.8, Total Bilirubin 0.7, AST 24, ALT 17, Alkaline Phosphatase 113, Troponin I 0.02, NT-Pro-B Natriuret Pep 20795 H, Total Protein 7.3, Albumin 3.6 D, Globulin 3.7 H, Albumin/Globulin Ratio 1.0 L, Lipase 52 01/21/25 11:15: SARS-CoV-2 (PCR) Not detected, Influenza A Untype (PCR) Not detected, Influenza Type B (PCR) Not detected 01/21/25 11:42: Urine Color Yellow, Urine Appearance Clear, Urine pH 6.0, Ur Specific [place] 1.010, Urine Protein Negative, Urine Glucose (UA) 3+, Urine Ketones 1+, Urine Blood Negative, Urine Nitrate Negative, Urine Bilirubin Negative, Urine Urobilinogen 0.2, Ur Leukocyte Esterase Negative, Urine RBC None, Urine WBC Occasional, Ur Squamous Epith Cells 5-10, Ur Renal Epithelial Cell 3-5, Urine Bacteria 1+ 01/21/25 14:08: Troponin I 0.01 Response Orders (Tests/Meds): ED MEDICATIONS Generic Name Dose Route Start Last Admin Trade Name Freq PRN Reason Stop Dose Admin Clopidogrel Bisulfate 75 mg 01/22/25 09:00 Clopidogrel 75mg Tab PO 02/21/25 08:59 DAILY [facility] Dapagliflozin 10 mg 01/22/25 09:00 Dapagliflozin Propanediol 10 Mg Tablet PO 02/21/25 08:59 DAILY [facility] Duloxetine HCl 30 mg 01/22/25 09:00 Duloxetine 30mg Capsule. PO 02/21/25 08:59 DAILY [facility] Famotidine 20 mg 01/21/25 21:00 Famotidine 20mg Tablet PO 02/20/25 20:59 HS [facility] Flecainide Acetate 100 mg 01/21/25 21:00 Flecainide 50mg Tablet PO 02/20/25 20:59 BID [facility] Vancomycin/PEG/NADA/Lysine/Water 1.75 gm in 350 mls @ 175 mls/hr 01/21/25 15:00 Vancomycin 1.75gm/350ml (Peg) Premix IV 01/31/25 14:59 Q24H [facility] Insulin Glargine 30 unit 01/21/25 21:00 Insulin Glargine 100 Units/Ml 3ml Flexpen SUBCUT 02/20/25 20:59 HS [facility] Insulin Human Lispro 0 unit 01/21/25 16:30 Humalog 100 Units/Ml 10ml Vial (Ssi) SUBCUT 02/20/25 16:29 ACHS [facility] Protocol Memantine 5 mg 01/21/25 21:00 Memantine 10mg Tablet PO 02/20/25 20:59 BID [facility] Metoprolol Succinate 25 mg 01/21/25 21:00 Metoprolol Succinate Xl 25mg Tablet PO 02/20/25 20:59 BID [facility] Montelukast Sodium 10 mg 01/21/25 21:00 Montelukast Sodium 10mg Tab PO 02/20/25 20:59 HS [facility] Rivaroxaban 20 mg 01/21/25 17:30 Rivaroxaban 10mg Tablet PO 02/20/25 17:29 QPMWITHMEAL [facility] Discontinued Medications Generic Name Dose Route Start Last Admin Trade Name Freq PRN Reason Stop Dose Admin Bumetanide 2 mg 01/21/25 14:06 Bumetanide 1mg/4ml Vial IV 01/21/25 14:07 ONCE ONE Magnesium Sulfate 2 gm in 50 mls @ 50 mls/hr 01/21/25 11:06 01/21/25 14:17 Magnesium Sulfate 2gm/50ml Premix IV 01/21/25 12:05 Infused ONCE ONE Infusion Sodium Chloride 2,690 mls @ 1,345 mls/hr 01/21/25 11:06 01/21/25 13:25 Sod Chlor 0.9% 1000ml Bag 30 ml/kg infuse over 2 hr (2690 ml) 01/21/25 13:05 999 mls/hr IV Infusion .Q2H ONE Protocol Ceftriaxone Sodium 2 gm/ 50 mls @ 100 mls/hr 01/21/25 13:26 01/21/25 14:33 Sodium Chloride IV 01/21/25 13:55 100 mls/hr ONCE ONE Administration Azithromycin 500 mg/ Sodium 250 mls @ 250 mls/hr 01/21/25 13:27 Chloride IV 01/21/25 13:28 ONCE ONE Iopamidol 80 ml 01/21/25 12:15 01/21/25 12:17 Iopamidol-370 (76%);100ml Bottle IV 01/21/25 12:16 80 ml ONCE ONE Administration Metoprolol Tartrate 2.5 mg 01/21/25 14:11 Metoprolol Tartrate 5mg/5ml Vial IV 01/21/25 14:12 ONCE ONE Miscellaneous 1 each 01/21/25 15:00 Vancomycin Consult Request NOTAPPLIC 02/20/25 14:59 CONSULT PHARMACY [facility] Sodium Chloride 10 ml 01/21/25 12:15 01/21/25 12:17 Sodium Chloride 0.9% 10ml Syr (Rad Only) IV 01/21/25 12:16 10 ml ONCE ONE Administration Sodium Chloride 50 ml 01/21/25 12:15 01/21/25 12:17 0.9 % Sodium Chloride 50 Ml Vial IV 01/21/25 12:16 50 ml ONCE ONE Administration ORDERS Category Date Time Status CT abdomen pelvis w con Stat Cat Scan 01/21/25 11:27 Completed CTA Chest [CT angio chest PE protocol] Stat Cat Scan 01/21/25 11:25 Completed Chest XR -- portable [XR chest portable] Stat Exams 01/21/25 11:06 Completed Activated Partial Thrombo Time Stat Lab 01/21/25 11:07 Completed BNP [NT Pro Brain Natriuretic Pep.] Stat Lab 01/21/25 11:07 Completed C-Reactive Protein Stat Lab 01/21/25 11:07 Results CBC [Complete Blood Count Auto Diff] Stat Lab 01/21/25 11:07 Completed Complete Blood Count Auto Diff AMLAB Lab 01/22/25 06:00 Ordered Comprehensive Metabolic Panel AMLAB Lab 01/22/25 06:00 Ordered Comprehensive Metabolic Panel Stat Lab 01/21/25 11:07 Results D-Dimer Stat Lab 01/21/25 11:07 Received Diarrhea 6-11 Panel, Cdiff PCR Stat Lab 01/21/25 11:08 Ordered Erythrocyte Sedimentation Rate Stat Lab 01/21/25 11:07 Completed Lipase Stat Lab 01/21/25 11:07 Results Magnesium AMLAB Lab 01/22/25 06:00 Ordered Magnesium Stat Lab 01/21/25 11:07 Results Prothrombin Time INR Stat Lab 01/21/25 11:07 Completed Rapid PCR Covid and Flu A/B Stat Lab 01/21/25 11:15 Completed Trop I [Troponin I] Stat Lab 01/21/25 11:07 Results Troponin I Q3H Lab 01/21/25 14:08 Completed Troponin I Q3H Lab 01/21/25 17:15 Ordered Urinalysis and Microscopic Stat Lab 01/21/25 11:42 Completed Blood Culture Stat Micro 01/21/25 11:22 Received Venous Blood Gas Stat RT 01/21/25 11:07 Completed MDM Narrative Medical Decision Narrative: patient is a 69-year-old female presenting to the emergency department for evaluation of increased shortness of breath with exertion that started again this morning. Patient states that she feels much worse today. She states that she is worse than she was when she left the hospital. Patient states that she is just having difficulty breathing and she is having diarrhea. She says she picked up her meds and took them. Patient is [hemodynamically stable and nontoxic-appearing upon arrival, afebrile]. Differential diagnosis includes[]. Workup will be conducted with [hematologic labs, specific imaging, provocative tests]. Initial inventions include [crystalloid bolus, analgesics, antibiotics, etc.]. Initial workup reviewed by me [hematologic labs are remarkable for:]. [Imaging informally interpreted by me and remarkable for:] [Formal imaging read remarkable for:] Upon repeat evaluation [patient's pain is improved, appears better perfused, appears the same, appears worse, etc.]. Due to this [additional interventions, patient is appropriate for discharge, patient requires admission, etc.]. [ If patient requires admission or consultation say I had an interactive discussion with X Consideration of test and reason for deferment Putting patient in observation care Social determinants of health making workup or disposition difficult (undomiciled, polysubstance abuse, etc.) Independently reviewing hospital records, previous imaging, you must explicitly state what you are reviewing (example, cardiology consultation note from November 2022) This is Dr. North at 1:29 PM I reviewed patient's imaging ultimately patient had a CT scan because her chest x-ray on admission most recently she was septic was not that impressive. Scan of her chest abdomen pelvis were performed I personally interpreted there is some abdominal pelvic ascites which is nonspecific but on scan of her chest she has a dense right middle and lower lobe consolidation with a parapneumonic effusion appears to be worse than the recent chest x-ray however radiographic findings can certainly lag clinically. Clinically the patient is much worse she is very tachypneic on my exam breathing 30+ times a minute only able to speak in single to several word sentences without taking a deep breath. Oxygen saturations on exertion in the ED dropped to 81% on room air she is 90% on room air at rest. She was placed back on 2 L nasal cannula oxygen saturations in the mid 90s. Patient also states that she significantly worsen at home and at home are still without oxygen and just feels like that she cannot care for herself. Therefore I believe she needs to come back in the hospital cultures have been resent Rocephin and azithromycin have been initiated in the emergency department I spoke with Alice who will discuss the case with hospital medicine for further evaluation and management. Additionally patient's curb 65 score is 3 indicates a 14% 30-day mortality make the patient moderate to high risk even considering the possibility of admitting her into the ICU. She is hemodynamically stable and not in septic shock at the moment. Not requiring high amounts of oxygen supplementation. Other than a moderately elevated BNP which is nonspecific no other significant abnormalities on findings.
[2025-01-21 11:15] LABS: Hematocrit 41.8 % (37.0-47.0); Hemoglobin 13.7 g/dL (12.2-16.2); Immature Granulocytes % 3.9 %; Mean Corpuscular HGB Conc 32.8 g/dL (31.8-35.4); Mean Corpuscular Hemoglobin 28.8 pg (27.0-31.2); Mean Corpuscular Volume 88.0 fl (81-99); Nucleated Red Blood Cells % 0.1 %; Platelet Count 369 K/mm3 (142-424); Red Blood Count 4.75 M/mm3 (4.20-5.40); Red Cell Distribution Width-SD 43.8 fL; White Blood Count 13.6 K/mm3 (4.8-10.8)
[2025-01-21] MEDS: SODIUM CHLORIDE 1345 ML IV (11:15)
[2025-01-21 11:17] LABS: Lactate Venous 1.9 mmol/L (0.4-2.0); VBG HCO3 25.6 mmol/L (23-30); VBG PCO2 49.9 mmol/L (35-51); VBG PH 7.33 mmol/L (7.31-7.41); VBG PO2 39.5 mmol/L (28-40)
[2025-01-21 11:20] LABS: Coronavirus 19, PCR Not Detected (NotDetected); Influenza A, PCR Not Detected (NotDetected); Influenza B, PCR Not Detected (NotDetected)
[2025-01-21 11:25] LABS: Albumin Level 3.6 g/dl (3.5-5.0); Chloride 105 mmol/L (98-107); Potassium 4.0 mmoL/L (3.5-5.1); Sodium 138 mmol/L (136-145)
--- NOTE | 2025-01-21 11:25 | CT_ITS ---
FINAL REPORT TECHNIQUE: The patient was injected with IV contrast. Axial images were obtained through the chest in a PE protocol. 3-D reconstruction images were also performed. Individualized dose reduction techniques using automated exposure control or adjustment of the MA and/or KV according to patient's size were employed. CLINICAL HISTORY: short bre COMPARISON: 11/30/2023 FINDINGS: Mediastinal vasculature is adequately opacified. No pulmonary artery filling defects are identified to suggest PE. There is no aortic dissection. There is a right paratracheal lymph node measuring 2.1 cm. Smaller mediastinal lymph nodes are also present. There is a subcarinal lymph node measuring 2.5 cm. The heart size is normal. There is no pericardial effusion. There is dense extensive right lower lobe consolidation and a moderate right pleural effusion. The effusion layers up to 4 cm in depth. A small sliding-type hiatal hernia is noted. IMPRESSION: No pulmonary embolus or dissection. Mediastinal adenopathy more evident than on the prior exam favored to be reactive. New dense right lower lobe consolidation and pleural effusion. Consider pneumonia or aspiration. Reviewed, Interpreted and Dictated by Matthew Silva MD Transcribed by Jimena Ordonez Authenticated and [facility]
--- NOTE | 2025-01-21 11:27 | CT_ITS ---
FINAL REPORT TECHNIQUE: After the administration of intravenous contrast, axial images were obtained through the abdomen and pelvis by computed tomography. The study was performed with techniques to keep radiation dose as low as reasonably achievable, (ALARA). Individual dose reduction techniques using automated exposure control or adjustment of mA and/or kV according to the patient's size were employed. CLINICAL HISTORY: abdominal pain COMPARISON: 11/30/2023 FINDINGS: Abdomen: The liver parenchyma is homogeneous. The gallbladder is surgically absent. The spleen, pancreas, adrenals and kidneys appear unremarkable. The aorta is normal in caliber. There is no free fluid or adenopathy. Pelvis: The appendix is not identified. There may be mucosal thickening of the gastric antrum extending to the pylorus well-seen on images [id number] series 4. The urinary bladder is unremarkable. There is a small amount of free fluid in the pelvis with mean attenuation value of 8 Hounsfield units. IMPRESSION: New pelvic ascites of uncertain significance. Mucosal thickening of the antrum into the pylorus. Reviewed, Interpreted and Dictated by Matthew Silva MD Transcribed by Jimena Ordonez Authenticated and [facility]
[2025-01-21 11:28] LABS: Alanine Aminotransferase 17 U/L (12-78); Albumin/Globulin Ratio 1.0 (1.1-1.8); Alkaline Phosphatase 113 U/L (38-126); Aspartate Amino Transferase 24 U/L (14-36); Bilirubin,Total 0.7 mg/dl (0.2-1.3); Blood Urea Nitrogen 20 mg/dl (7-17); Calcium 9.2 mg/dl (8.4-10.2); Creatinine Clearance Estimated 73 mL/min (50-200); Creatinine,Serum 0.80 mg/dl (0.52-1.04); Estimated Glomerular Filt Rate 71 ml/min (>60); GFR (African American) 86 ML/MIN (>60); Globulin 3.7 g/dL (1.3-3.2); Glucose 169 mg/dl (74-100); Lipase 52 U/L (23-300); Total Protein,Serum 7.3 g/dl (6.3-8.2)
[2025-01-21 11:29] LABS: Activated Partial Thrombo Time 29.7 seconds (22.8-30.6); INR 1.20 (0.9-1.1); Magnesium 1.8 mg/dl (1.6-2.3); Prothrombin Time 13.1 seconds (10.1-12.5)
[2025-01-21 11:37] LABS: NT Pro Brain Natriuretic Pep. 14000 pg/mL (0-125)
[2025-01-21 11:40] LABS: Troponin I 0.02 ng/ml (0.00-0.034)
[2025-01-21 11:56] LABS: RBC Morphology Normal; Total Cells Counted 100
[2025-01-21] MEDS: 0.9 % SODIUM CHLORIDE 50 ML VIAL IV (12:17)
[2025-01-21] MEDS: SODIUM CHLORIDE 0.9% 10ML SYR (RAD ONLY) 10 ML IV (12:17)
[2025-01-21] MEDS: IOPAMIDOL-370 (76%);100ML BOTTLE 80 ML IV (12:17)
[2025-01-21 12:22] LABS: Microscopic, Urine URINE MICROSCOPIC (MICROSCOPIC)
[2025-01-21 12:23] LABS: Bilirubin,Urine Negative (Negative); Color,Urine YELLOW (Yellow); Glucose,Urine (UA) 3+ (Negative); Ketones,Urine 1+ (Negative); Leukocyte Esterase,Urine Negative (Negative); PH,Urine 6.0 (5.0-8.5); Protein,Urine Negative (Negative); Specific Gravity, Urine 1.010 (1.005-1.030); Urobilinogen,Urine 0.2 EU/dl (0.2)
[2025-01-21] MEDS: MAGNESIUM SULFATE IN WATER 2 GM/50 ML PIGGYBACK IV (12:27)
[2025-01-21 12:47] LABS: WBC,Urine Occasional #/hpf (0-3)
[2025-01-21 12:48] LABS: Bacteria,Urine 1+ /lpf
--- NOTE | 2025-01-21 13:53 | PC.NURSE ---
dr shook at bs
--- NOTE | 2025-01-21 14:05 | PC.NURSE ---
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
--- NOTE | 2025-01-21 14:12 | EXP.HP ---
History of Present Illness *Admission Date: 01/21/25 *Reason for visit:: dyspnea *History of present illness: 69-year-old female with history of A-fib, HFpEF, depression, COPD, hypertension. She was just discharged yesterday after being admitted for sepsis and pneumonia. White count drastically improved. Patient was stable on room air for more than 24 hours. Was in A-fib but not poorly controlled and evaluated by cardiology. Mild adjustments made to medications. Was discharged on Augmentin. States she was feeling good at home until she woke up this morning and felt acutely short of breath. Upon evaluation in the ER, patient was tachypneic, continues to have mildly elevated white count at 13. CT of chest shows effusion and persistent right lower lobe pneumonia. Sats in the low 90s on room air but desats to the low 80s with any movement or ambulation. Medicine was consulted for admission and further management. Patient received ceftriaxone and azithromycin in the ER. BNP elevated at 14,000. Will initiate 2 mg IV Bumex. Had received fluid resuscitation during her previous admission in line with sepsis treatment. [facility] Disclaimer: The information contained in this section may have been updated after the patient was seen, as this information can be updated by other users. Medical History Mini stroke Ganglion cyst of hand tendon excised Irritable bowel syndrome with mixed bowel habits Colon cancer screening Breast cancer screening by mammogram Diabetes mellitus Upper abdominal pain Abnormal echocardiogram Interatrial cardiac shunt Angina pectoris Wellness examination Memory loss CVA (cerebral vascular accident) Chest pain Body mass index (BMI) of 40.1 to 44.9 in adult Family history of Vergas's disease Ganglion cyst of left foot Typical angina Diabetic gastroparesis Vomiting Bilateral impacted cerumen Pain, gastric Gastritis Cholelithiasis Gallstones Gastroparesis Dyspnea Chest pain Onychoincurvatum Onychodystrophy Trigger finger of right hand Tendinitis of right peroneus brevis tendon Foot pain, right Insulin dependent diabetes mellitus with complications Plantar fasciitis, left Foot pain, left Onychogryposis of toenail Asymptomatic hypertension Dizziness Chest pain Epigastric abdominal pain Dehydration Abnormal cardiovascular stress test Low blood pressure reading Atypical chest pain Myalgia due to statin Fracture of fifth metatarsal bone of right foot with delayed healing Cardiac arrhythmia Sinus bradycardia Back pain Obesity, Class III, BMI 40-49.9 (morbid obesity) Labile essential hypertension TOMAS (obstructive sleep apnea) Ear itching Allergic rhinitis Breast cyst Ganglion cyst Dermoid cyst of head Diabetes mellitus, type 2 Neck pain Moderate mitral regurgitation Mood disorder Obesity HTN (hypertension) COPD (chronic obstructive pulmonary disease) GERD (gastroesophageal reflux disease) Neuropathy Anxiety Restless leg syndrome Surgical History Hx of removal of cyst S/P coronary artery stent placement Status post trigger finger release History of cholecystectomy History of hysterectomy History of colonoscopy Family History Other Family history of Alzheimer's disease Family history of Vergas's disease Family history of myocardial infarction Social History Smoking Status: Never smoker second hand exposure: Yes alcohol intake: never counseling provided: provider counseling substance use type: former substance user, marijuana and crack/cocaine counseling given: No (former user) current occupational status: retired Travel in the last 8 weeks?: None household members: children housing: house lives independently: Yes marital status: legally education level: high school current occupational exposures/hazards: No caffeine: No special lex needs: No agree to transfusion: No do you feel safe at home: Yes victim of physical abuse: No victim of emotional abuse: No victim of sexual abuse: No would you like helpful sources: No Have you lived/traveled outside [place] in past 30 days?: No Contact w/someone who lives/traveled outside [place] past 30 days?: No Exposure to someone with infectious disease in past 14 days?: No Do you have a fever (greater than 100.4 F or 38 C)?: No Have you tested positive for COVID-19?: No Exposed to someone with COVID-19 in past 14 days?: No Do you have a sore throat?: No Do you have a cough?: No Do you have any weakness?: No Are you experiencing any nausea/vomitting?: No Do you have any diarrhea?: No Are you experiencing any unusual bleeding?: No Do you have any muscle aches/pain?: No Do you have any abdominal pain?: No Are you experiencing loss of taste or smell?: No Other Medical History Have you received the Flu Vaccine for this season: No Have you received the Pneumonia Vaccine: No Review of Systems Review of Systems Review of systems (narrative): 14 point review of systems performed, pertinent positives and negatives as per HPI Meds Home Medications and Allergies Home Medications ?Medication ?Instructions ?Recorded ?Confirmed ?Type insulin lispro 100 unit/mL 0 sliding scale dose SQ AC Diabetes 03/19/23 01/21/25 History subcutaneous pen ergocalciferol (vitamin D2) 1,250 1,250 mcg PO WEEKLY #14 caps 08/03/24 01/21/25 Rx mcg (50,000 unit) capsule famotidine 20 mg tablet 20 mg PO HS 08/07/24 01/21/25 History flecainide 100 mg tablet 100 mg PO BID 08/07/24 01/21/25 History memantine 7 mg capsule 7 mg PO DAILY #90 ea 09/16/24 01/21/25 Rx sprinkle,extended release 24hr losartan 50 mg tablet 50 mg PO DAILY #90 tabs 09/17/24 01/21/25 Rx dexlansoprazole 60 mg 60 mg PO DAILY 09/28/24 01/21/25 History capsule,biphase delayed release blood-glucose sensor (Dexcom G7 #14 ea 11/02/24 01/18/25 Rx Sensor device) montelukast 10 mg tablet 10 mg PO HS #90 tabs 11/09/24 01/21/25 Rx (Singulair) cholecalciferol (vitamin D3) 50 50 mcg PO DAILY #90 caps 11/12/24 01/21/25 Rx mcg (2,000 unit) capsule clopidogrel 75 mg tablet 75 mg PO DAILY #90 tabs 11/18/24 01/21/25 Rx insulin degludec 100 unit/mL (3 45 unit SQ HS 11/24/24 01/21/25 History mL) subcutaneous pen (Tresiba FlexTouch U-100 insulin) dapagliflozin propanediol 10 mg 10 mg PO DAILY #90 tabs 12/24/24 01/21/25 Rx tablet (Farxiga) duloxetine 30 mg capsule,delayed 30 mg PO DAILY 01/18/25 01/21/25 History release evolocumab 140 mg/mL subcutaneous 140 mg SQ MONTHLY 01/18/25 01/21/25 History pen injector (Anurag Munson) furosemide 40 mg tablet 80 mg PO SUTUTH 01/18/25 01/21/25 History furosemide 40 mg tablet (Lasix) 40 mg PO MOWEFRSA 01/18/25 01/21/25 History rivaroxaban 20 mg tablet (Xarelto) 20 mg PO QPMWITHMEAL 01/18/25 01/21/25 History tirzepatide 10 mg/0.5 mL 10 mg SQ WEEKLY 01/18/25 01/21/25 History subcutaneous pen injector (Mounjaro) amoxicillin 500 mg-potassium 1 tab PO TID 5 days #15 tabs 01/20/25 01/21/25 Rx clavulanate 125 mg tablet (Augmentin) metoprolol succinate 25 mg 25 mg PO BID 30 days #60 tabs 01/20/25 01/21/25 Rx tablet,extended release 24 hr New Prescriptions to Start Prescriptions: Allergies Allergy/AdvReac Type Severity Reaction Status Date / Time canagliflozin (From Invokana) Allergy Severe blisters Verified 12/24/24 13:13 metformin Allergy Mild Diarrhea, Verified 12/24/24 13:13 nausea, dizziness sitagliptin (From Januvia) Allergy Mild Hives Verified 12/24/24 13:13 linaclotide (From Linzess) Allergy Rash Verified 12/24/24 13:13 metronidazole (From Metrogel) Allergy Rash Verified 12/24/24 13:13 nystatin Allergy Dizziness Verified 12/24/24 13:13 rosuvastatin (From Crestor) Allergy Dizziness Verified 12/24/24 13:13 semaglutide (From Ozempic) AdvReac Severe Abdominal Verified 12/24/24 13:13 Pain atorvastatin (From Lipitor) AdvReac Intermediate body aches Verified 12/24/24 13:13 andmental confusion isosorbide AdvReac Headache Verified 01/20/25 07:27 Exam Data for Last 24 hours Vital signs and Labs for Last 24 Hours: Temp Pulse Resp BP Pulse Ox O2 Del Method O2 Flow Rate 98.2 F 107 H 30 H 142/88 H 96 Nasal Cannula 2 01/21/25 10:51 01/21/25 11:00 01/21/25 11:30 01/21/25 11:30 01/21/25 11:00 01/21/25 10:51 01/21/25 10:51 Laboratory Results - last 24 hr 01/21/25 11:07: WBC 13.6 H, RBC 4.75, Hgb 13.7, Hct 41.8, MCV 88.0, MCH 28.8, MCHC 32.8, RDW 13.6, Plt Count 369 D, MPV 9.8, Neut % (Auto) 75.7, Lymph % (Auto) 10.5, [place] % (Auto) 8.7, Eos % (Auto) 0.5, Baso % (Auto) 0.7, Neut # (Auto) 10.3 H, Lymph # (Auto) 1.4, [place] # (Auto) 1.2 H, Eos # (Auto) 0.1, Baso # (Auto) 0.1, Total Counted 100, Neutrophils % (Manual) 80 H, Lymphocytes % (Manual) 15, Monocytes % (Manual) 4, Eosinophils % (Manual) 1, Platelet Estimate Normal, RBC Morphology Normal, ESR 65 H, PT 13.1 H, INR 1.20 H, APTT 29.7, VBG pH 7.33, VBG pCO2 49.9, VBG pO2 39.5, VBG HCO3 25.6, VBG Total CO2 27.1 H, VBG O2 Saturation 69.3, VBG Base Excess -0.4, VBG Lactic Acid 1.9, Sodium 138, Potassium 4.0, Chloride 105, Carbon Dioxide 26, BUN 20 H, Creatinine 0.80, Estimated Creat Clear 73, Estimated GFR 71, Est GFR ( Amer) 86, Glucose 169 H, Calcium 9.2, Magnesium 1.8, Total Bilirubin 0.7, AST 24, ALT 17, Alkaline Phosphatase 113, Troponin I 0.02, NT-Pro-B Natriuret Pep 56875 H, Total Protein 7.3, Albumin 3.6 D, Globulin 3.7 H, Albumin/Globulin Ratio 1.0 L, Lipase 52 01/21/25 11:15: SARS-CoV-2 (PCR) Not detected, Influenza A Untype (PCR) Not detected, Influenza Type B (PCR) Not detected 01/21/25 11:42: Urine Color Yellow, Urine Appearance Clear, Urine pH 6.0, Ur Specific [place] 1.010, Urine Protein Negative, Urine Glucose (UA) 3+, Urine Ketones 1+, Urine Blood Negative, Urine Nitrate Negative, Urine Bilirubin Negative, Urine Urobilinogen 0.2, Ur Leukocyte Esterase Negative, Urine RBC None, Urine WBC Occasional, Ur Squamous Epith Cells 5-10, Ur Renal Epithelial Cell 3-5, Urine Bacteria 1+ I & O for Last 24 hours: Intake & Output 01/18/25 01/19/25 01/20/25 01/21/25 23:59 23:59 23:59 23:59 Intake Total 1000 / 1000 Balance 1000 / 1000 Weight 89.811 kg Constitutional Constitutional: mild distress, obese, chronically ill appearing and cooperative *Routine HEENT Exam Head: Present normocephalic Eye: Present EOMI and PERRL ENT: Present mucous membranes moist *Routine Neck Exam Neck: Present supple; Absent lymphadenopathy *Routine Respiratory Exam Respiratory: Present accessory muscle use, prolonged expiratory phase and crackles (Right lung base, stable from previous exam prior to discharge); Absent rhonchi or wheezes *Routine Cardiovascular Exam Cardiovascular: Present tachycardia and irregularly irregular *Routine Abdominal Exam Abdominal: Present soft and normoactive bowel sounds; Absent tenderness *Routine Rectal Exam Rectal:: deferred *Routine Genitalia Exam Genitalia:: deferred *Routine Extremities Exam Extremities: Absent cyanosis, clubbing or edema *Routine Skin Exam Skin: Present intact and warm; Absent rash *Routine Neurological Exam Neurological: Present alert, oriented X3 and moving all extremities; Absent altered mental status Assessment and Plan *Assessment and plan (1) Acute on chronic heart failure with preserved ejection fraction (HFpEF): Status: Acute Category: Medical Code(s): I50.33 - Acute on chronic diastolic (congestive) heart failure (2) PAF (paroxysmal atrial fibrillation): Status: Chronic Category: Medical Code(s): I48.0 - Paroxysmal atrial fibrillation (3) Pneumonia: Status: Acute Qualifiers: Laterality: right Lung location: lower lobe of lung Pneumonia type: due to unspecified organism Qualified Code(s): J18.9 - Pneumonia, unspecified organism Category: Medical Code(s): J18.9 - Pneumonia, unspecified organism (4) Sepsis: Status: Acute Qualifiers: Acute respiratory failure type: with hypoxia Sepsis acute organ dysfunction status: with acute organ dysfunction Sepsis type: sepsis due to unspecified organism Severe sepsis acute organ dysfunction type: acute respiratory failure Severe sepsis shock status: without septic shock Qualified Code(s): A41.9 - Sepsis, unspecified organism; R65.20 - Severe sepsis without septic shock; J96.01 - Acute respiratory failure with hypoxia Category: Medical Code(s): A41.9 - Sepsis, unspecified organism (5) Positive colorectal cancer screening using Cologuard test: Status: Acute Category: Medical Code(s): R19.5 - Other fecal abnormalities (6) Weight loss: Status: Acute Category: Medical Code(s): R63.4 - Abnormal weight loss (7) Type 2 diabetes mellitus with diabetic neuropathy: Status: Chronic Qualifiers: Diabetes mellitus retirement insulin use: with bed bug exterminator use Qualified Code(s): E11.40 - Type 2 diabetes mellitus with diabetic neuropathy, unspecified; Z79.4 - bed bug exterminator (current) use of insulin Category: Medical Code(s): E11.40 - Type 2 diabetes mellitus with diabetic neuropathy, unspecified (8) Obesity (BMI 30-39.9): Status: Acute Category: Medical Code(s): E66.9 - Obesity, unspecified Plan 69-year-old female who presented with shortness of breath, persistent leukocytosis, and A-fib. BNP severely elevated. Discussed case with ER physician, request admission for treatment of pneumonia and HFpEF. Agreed to admit for further care. Concern for HFpEF exacerbation after recent treatment for sepsis with pneumonia. Problems addressed as follows: Acute on chronic HFpEF CAD Paroxysmal A-fib Hypertension - Patient's BNP elevated at 14,000, dyspnea with exertion, remains in A-fib with heart rate in the low 100s. Will continue flecainide 100 mg twice daily, continue metoprolol succinate 25 mg twice daily. Will administer 1 dose IV metoprolol 5 mg now to monitor for improvement heart rate - Initiate diuresis with 2 mg Bumex IV once. Monitor fluid output. Goal negative fluid status - Monitor on telemetry - Supplemental oxygen as needed for goal sats greater 90%. - Holding losartan at this time, reevaluate in the morning -Continue Plavix 75 mg daily, Xarelto 20 mg nightly - White count 13.6, hemoglobin 13.7. Repeat CBC, CMP, magnesium ordered for the morning - ESR remains elevated at 65, consistent with previous admission. - Kidney function normal with BUN 20, creatinine 0.8. Glucose 169 on admission. sepsis, still meeting criteria with tachycardia (was rate controlled prior to being sick with pneumonia which flipped her into A-fib causing her to have tachycardia), white count above 12, infection Pneumonia -Sputum result from previous admission showing gram-positive cocci. Will initiate vancomycin. Monitor for toxicity -Continue ceftriaxone 1 g daily, azithromycin 500 mg daily. -Reevaluate home regimen when stable for discharge. -Per my review of CT, has persistent right lower lobe consolidation with effusion Diabetes: A1c 6.4 the beginning of last month, consistent with well-controlled - Continue sliding scale insulin and fingersticks ACHS - Continue basal insulin with insulin glargine 30 units nightly, will titrate to home regimen (45units HS) once patient eating Continue Cymbalta 30 mg daily for mood Continue famotidine 20 mg nightly for GERD Full code Xarelto 20 mg daily Diabetic diet
--- NOTE | 2025-01-21 14:41 | HMH.PHAINT1 ---
Pharmacy Intervention Comments: HOME MEDICATION LIST VERIFIED SUING LIST FROM MOST RECENT DISCHARGE LIST FROM THIS FACILITY ON 01/20/25
[2025-01-21 14:56] LABS: Troponin I 0.01 ng/ml (0.00-0.034)
[2025-01-21 15:00] LABS: D-Dimer 1.97 ug/mL (0.0-0.5)
--- NOTE | 2025-01-21 15:10 | EXP.PHA.CONS ---
Pharmacy Consult Date: 01/21/25 Time: 15:10 Referring provider: DR. GIANG Reason for Consult:: VANCOMYCIN DOSING Allergies Allergy/AdvReac Type Severity Reaction Status Date / Time canagliflozin (From Invokana) Allergy Severe blisters Verified 12/24/24 13:13 metformin Allergy Mild Diarrhea, Verified 12/24/24 13:13 nausea, dizziness sitagliptin (From Januvia) Allergy Mild Hives Verified 12/24/24 13:13 linaclotide (From Linzess) Allergy Rash Verified 12/24/24 13:13 metronidazole (From Metrogel) Allergy Rash Verified 12/24/24 13:13 nystatin Allergy Dizziness Verified 12/24/24 13:13 rosuvastatin (From Crestor) Allergy Dizziness Verified 12/24/24 13:13 semaglutide (From Ozempic) AdvReac Severe Abdominal Verified 12/24/24 13:13 Pain atorvastatin (From Lipitor) AdvReac Intermediate body aches Verified 12/24/24 13:13 andmental confusion isosorbide AdvReac Headache Verified 01/20/25 07:27 Home Medications ?Medication ?Instructions ?Recorded ?Confirmed ?Type insulin lispro 100 unit/mL 0 sliding scale dose SQ AC Diabetes 03/19/23 01/21/25 History subcutaneous pen ergocalciferol (vitamin D2) 1,250 1,250 mcg PO WEEKLY #14 caps 08/03/24 01/21/25 Rx mcg (50,000 unit) capsule famotidine 20 mg tablet 20 mg PO HS 08/07/24 01/21/25 History flecainide 100 mg tablet 100 mg PO BID 08/07/24 01/21/25 History memantine 7 mg capsule 7 mg PO DAILY #90 ea 09/16/24 01/21/25 Rx sprinkle,extended release 24hr losartan 50 mg tablet 50 mg PO DAILY #90 tabs 09/17/24 01/21/25 Rx dexlansoprazole 60 mg 60 mg PO DAILY 09/28/24 01/21/25 History capsule,biphase delayed release blood-glucose sensor (Dexcom G7 #14 ea 11/02/24 01/18/25 Rx Sensor device) montelukast 10 mg tablet 10 mg PO HS #90 tabs 11/09/24 01/21/25 Rx (Singulair) cholecalciferol (vitamin D3) 50 50 mcg PO DAILY #90 caps 11/12/24 01/21/25 Rx mcg (2,000 unit) capsule clopidogrel 75 mg tablet 75 mg PO DAILY #90 tabs 11/18/24 01/21/25 Rx insulin degludec 100 unit/mL (3 45 unit SQ HS 11/24/24 01/21/25 History mL) subcutaneous pen (Tresiba FlexTouch U-100 insulin) dapagliflozin propanediol 10 mg 10 mg PO DAILY #90 tabs 12/24/24 01/21/25 Rx tablet (Farxiga) duloxetine 30 mg capsule,delayed 30 mg PO DAILY 01/18/25 01/21/25 History release evolocumab 140 mg/mL subcutaneous 140 mg SQ MONTHLY 01/18/25 01/21/25 History pen injector (Repatha SureClick) furosemide 40 mg tablet 80 mg PO SUTUTH 01/18/25 01/21/25 History furosemide 40 mg tablet (Lasix) 40 mg PO MOWEFRSA 01/18/25 01/21/25 History rivaroxaban 20 mg tablet (Xarelto) 20 mg PO QPMWITHMEAL 01/18/25 01/21/25 History tirzepatide 10 mg/0.5 mL 10 mg SQ WEEKLY 01/18/25 01/21/25 History subcutaneous pen injector (Mounjaro) amoxicillin 500 mg-potassium 1 tab PO TID 5 days #15 tabs 01/20/25 01/21/25 Rx clavulanate 125 mg tablet (Augmentin) metoprolol succinate 25 mg 25 mg PO BID 30 days #60 tabs 01/20/25 01/21/25 Rx tablet,extended release 24 hr New Prescriptions to Start Prescriptions: Height: 1.65 m Weight: 89.811 kg Laboratory Results:: Laboratory Results - last 24 hr 01/21/25 11:07: WBC 13.6 H, RBC 4.75, Hgb 13.7, Hct 41.8, MCV 88.0, MCH 28.8, MCHC 32.8, RDW 13.6, Plt Count 369 D, MPV 9.8, Neut % (Auto) 75.7, Lymph % (Auto) 10.5, Isabella % (Auto) 8.7, Eos % (Auto) 0.5, Baso % (Auto) 0.7, Neut # (Auto) 10.3 H, Lymph # (Auto) 1.4, Isabella # (Auto) 1.2 H, Eos # (Auto) 0.1, Baso # (Auto) 0.1, Total Counted 100, Neutrophils % (Manual) 80 H, Lymphocytes % (Manual) 15, Monocytes % (Manual) 4, Eosinophils % (Manual) 1, Platelet Estimate Normal, RBC Morphology Normal, ESR 65 H, PT 13.1 H, INR 1.20 H, APTT 29.7, VBG pH 7.33, VBG pCO2 49.9, VBG pO2 39.5, VBG HCO3 25.6, VBG Total CO2 27.1 H, VBG O2 Saturation 69.3, VBG Base Excess -0.4, VBG Lactic Acid 1.9, Sodium 138, Potassium 4.0, Chloride 105, Carbon Dioxide 26, BUN 20 H, Creatinine 0.80, Estimated Creat Clear 73, Estimated GFR 71, Est GFR ( Amer) 86, Glucose 169 H, Calcium 9.2, Magnesium 1.8, Total Bilirubin 0.7, AST 24, ALT 17, Alkaline Phosphatase 113, Troponin I 0.02, NT-Pro-B Natriuret Pep 11423 H, Total Protein 7.3, Albumin 3.6 D, Globulin 3.7 H, Albumin/Globulin Ratio 1.0 L, Lipase 52 01/21/25 11:15: SARS-CoV-2 (PCR) Not detected, Influenza A Untype (PCR) Not detected, Influenza Type B (PCR) Not detected 01/21/25 11:42: Urine Color Yellow, Urine Appearance Clear, Urine pH 6.0, Ur Specific [place] 1.010, Urine Protein Negative, Urine Glucose (UA) 3+, Urine Ketones 1+, Urine Blood Negative, Urine Nitrate Negative, Urine Bilirubin Negative, Urine Urobilinogen 0.2, Ur Leukocyte Esterase Negative, Urine RBC None, Urine WBC Occasional, Ur Squamous Epith Cells 5-10, Ur Renal Epithelial Cell 3-5, Urine Bacteria 1+ 01/21/25 14:08: Troponin I 0.01 Medical History: Medical History (Updated 01/21/25 @ 14:20 by Corey Giang MD) Mini stroke Ganglion cyst of hand tendon excised Irritable bowel syndrome with mixed bowel habits Colon cancer screening Breast cancer screening by mammogram Diabetes mellitus Upper abdominal pain Abnormal echocardiogram Interatrial cardiac shunt Angina pectoris Wellness examination Memory loss CVA (cerebral vascular accident) Chest pain Body mass index (BMI) of 40.1 to 44.9 in adult Family history of [place]'s disease Ganglion cyst of left foot Typical angina Diabetic gastroparesis Vomiting Bilateral impacted cerumen Pain, gastric Gastritis Cholelithiasis Gallstones Gastroparesis Dyspnea Chest pain Onychoincurvatum Onychodystrophy Trigger finger of right hand Tendinitis of right peroneus brevis tendon Foot pain, right Insulin dependent diabetes mellitus with complications Plantar fasciitis, left Foot pain, left Onychogryposis of toenail Asymptomatic hypertension Dizziness Chest pain Epigastric abdominal pain Dehydration Abnormal cardiovascular stress test Low blood pressure reading Atypical chest pain Myalgia due to statin Fracture of fifth metatarsal bone of right foot with delayed healing Cardiac arrhythmia Sinus bradycardia Back pain Obesity, Class III, BMI 40-49.9 (morbid obesity) Labile essential hypertension TOMAS (obstructive sleep apnea) Ear itching Allergic rhinitis Breast cyst Ganglion cyst Dermoid cyst of head Diabetes mellitus, type 2 Neck pain Moderate mitral regurgitation Mood disorder Obesity HTN (hypertension) COPD (chronic obstructive pulmonary disease) GERD (gastroesophageal reflux disease) Neuropathy Anxiety Restless leg syndrome Assessment and Plan Assessment and plan all Dx Assessment and Plan for all problems:: Pharmacokinetic dosing service Objective: Patient: Floor: Age: 69 yo Serum creatinine: 1 mg/dL Height: 65.0 Inches Weight (kg): 90 Assessment: IBW (kg): 57.00 Dosing wt(kg): 90 Estimated Creatinine clearance (ml/min): 46.4 CRCL method: Cockcroft and Gault using ibw(default). Drug selected: Vancomycin Loading dose (mg): 0 Vd (liters): 72.0 (factor used: 0.8 L/kg) Claudy (hr-1): 0.043 Half life (hrs): 16.12 Recommended dose: 1750 mg Interval: 24 hrs Infusion time (hrs): 2.0 Predicted peak (mcg/mL): 36.2 Predicted trough (mcg/mL): 14.06 Total body weight is being used for vancomycin dosing. Recommendations: Give Vancomycin 1750 mg q 24 hrs with an expected Cpeak of 36.2 mcg/ml and an expected Ctrough of 14.06 mcg/ml ----Vanco only - ignore for aminoglycosides----- CLvanco= 3.10 L/hr AUC 0-24 /SHAYNA Data: SHAYNA 0.5 mcg/mL: AUC/SHAYNA: 1129.0 SHAYNA 1.0 mcg/mL: AUC/SHAYNA: 564.5 --------- SHAYNA 1.5 mcg/mL: AUC/SHAYNA: 376.3 SHAYNA 2.0 mcg/mL: AUC/SHAYNA: 282.3
[2025-01-21] MEDS: AZITHROMYCIN 500 MG in 0.9 % SODIUM CHLORIDE 250 ML 250 MG IV (15:39)
--- NOTE | 2025-01-21 15:57 | PC.NURSE ---
arrived by w/c from ED
[2025-01-21] MEDS: VANCOMYCIN/WATER FOR INJ (PEG) 1.75 GM/350 ML PIGGYBACK IV (17:36)
[2025-01-21] MEDS: METOPROLOL TARTRATE 5MG/5ML VIAL 2.5 MG IV (17:36)
[2025-01-21] MEDS: BUMETANIDE 1MG/4ML VIAL 2 MG IV (17:37)
[2025-01-21 18:09] LABS: POC Glucose,Bedside 147 gm/dL (70-110)
[2025-01-21 20:39] LABS: POC Glucose,Bedside 155 gm/dL (70-110)
[2025-01-21] MEDS: INSULIN GLARGINE 100 UNITS/ML 3ML FLEXPEN 30 UNIT SUBCUT (20:50)
[2025-01-21] MEDS: humaLOG 100 UNITS/ML 10ML VIAL (SSI) SUBCUT (20:51)
[2025-01-21] MEDS: FLECAINIDE 50MG TABLET 100 MG PO (20:52)
[2025-01-21] MEDS: MEMANTINE 10MG TABLET 5 MG PO (20:52)
[2025-01-21] MEDS: MONTELUKAST SODIUM 10MG TAB 10 MG PO (20:52)
[2025-01-21] MEDS: FAMOTIDINE 20MG TABLET 20 MG PO (20:52)
[2025-01-21] MEDS: METOPROLOL SUCCINATE XL 25MG TABLET 25 MG PO (20:52)
[2025-01-21 23:55] LABS: Anion Gap 11.0 mEq/L (5-15); Carbon Dioxide 26 mmol/L (22.0-30.0)
[2025-01-22] VITALS (10 sets, daily range): BP systolic 104–135; BP diastolic 68–89; PULSE 90–114; RESP 12–18; TEMP 36.6–36.9; O2SAT 94–97; BMI 34.8
[2025-01-22 00:11] LABS: C-Reactive Protein 211.3 mg/L (0-4)
[2025-01-22 05:52] LABS: POC Glucose,Bedside 81 gm/dL (70-110)
--- NOTE | 2025-01-22 06:11 | PC.NURSE ---
Pt was admitted on 01/21 with a sepsis alert. Afib with a rate of 110. 2L NC prn, BNP was [address], wbc 13.6. She is short of breath on excretion.Pt has rested most of the night. Call light is next to PT. DANIEL LE RN
[2025-01-22] MEDS: DAPAGLIFLOZIN PROPANEDIOL 10 MG TABLET PO (08:50)
[2025-01-22] MEDS: METOPROLOL SUCCINATE XL 25MG TABLET 25 MG PO ×2 (08:50→21:41)
[2025-01-22] MEDS: CLOPIDOGREL 75MG TAB 75 MG PO (08:50)
[2025-01-22] MEDS: FLECAINIDE 50MG TABLET 100 MG PO ×2 (08:50→21:57)
[2025-01-22] MEDS: MEMANTINE 10MG TABLET 5 MG PO ×2 (08:51→21:41)
[2025-01-22] MEDS: FUROSEMIDE 40MG/4ML VIAL 40 MG IV (09:20)
[2025-01-22] MEDS: SPIRONOLACTONE 25MG TABLET 25 MG PO (09:21)
[2025-01-22 11:12] LABS: POC Glucose,Bedside 76 gm/dL (70-110)
--- NOTE | 2025-01-22 12:24 | EXP.DC.SUM ---
General Admission date:: 01/21/25 HPI HPI HPI: 69-year-old female with history of A-fib, HFpEF, depression, COPD, hypertension. She was just discharged yesterday after being admitted for sepsis and pneumonia. White count drastically improved. Patient was stable on room air for more than 24 hours. Was in A-fib but not poorly controlled and evaluated by cardiology. Mild adjustments made to medications. Was discharged on Augmentin. States she was feeling good at home until she woke up this morning and felt acutely short of breath. Upon evaluation in the ER, patient was tachypneic, continues to have mildly elevated white count at 13. CT of chest shows effusion and persistent right lower lobe pneumonia. Sats in the low 90s on room air but desats to the low 80s with any movement or ambulation. Medicine was consulted for admission and further management. Patient received ceftriaxone and azithromycin in the ER. BNP elevated at 14,000. Will initiate 2 mg IV Bumex. Had received fluid resuscitation during her previous admission in line with sepsis treatment. Hospital Course Hospital Course Hospital Course: Total time spent on discharge: 32 minutes on chart review, counseling, documentation, and direct care with patient. Exam Data for Last 24 hours Vital signs and Labs for Last 24 Hours: Temp Pulse Resp BP Pulse Ox O2 Del Method O2 Flow Rate 97.8 F 110 H 18 135/89 96 Nasal Cannula 1 01/22/25 07:58 01/22/25 11:01 01/22/25 07:58 01/22/25 11:01 01/22/25 07:58 01/22/25 11:00 01/22/25 07:58 Laboratory Results - last 24 hr 01/21/25 11:07: D-Dimer 1.97 H, Carbon Dioxide 26, Anion Gap 11.0, C-Reactive Protein 211.3 H 01/21/25 11:42: Urine Color Yellow, Urine Appearance Clear, Urine pH 6.0, Ur Specific [place] 1.010, Urine Protein Negative, Urine Glucose (UA) 3+, Urine Ketones 1+, Urine Blood Negative, Urine Nitrate Negative, Urine Bilirubin Negative, Urine Urobilinogen 0.2, Ur Leukocyte Esterase Negative, Urine RBC None, Urine WBC Occasional, Ur Squamous Epith Cells 5-10, Ur Renal Epithelial Cell 3-5, Urine Bacteria 1+ 01/21/25 14:08: Troponin I 0.01 01/21/25 17:48: POC Glucose 147 H 01/21/25 20:31: POC Glucose 155 H 01/22/25 05:44: POC Glucose 81 01/22/25 11:03: POC Glucose 76 I & O for Last 24 hours: Intake & Output 01/19/25 01/20/25 01/21/25 01/22/25 23:59 23:59 23:59 23:59 Intake Total 1940 / 2180 240 / 240 Output Total 1400 / 1900 2550 / 2550 Balance 540 / 280 -2310 / -2310 Weight 95.481 kg 94.892 kg Microbiology Reports for the Last 24 Hours: Microbiology 01/21/25 11:22 Blood Blood Culture - Preliminary NO GROWTH AFTER 24 HOURS 01/21/25 11:07 Blood Blood Culture - Preliminary NO GROWTH AFTER 24 HOURS Results Data Completed and Pending Labs on day of discharge: Labs from last 24 hours 01/22/25 01/22/25 01/21/25 11:03 05:44 20:31 D-Dimer Carbon Dioxide Anion Gap POC Glucose 76 81 155 H Troponin I C-Reactive Protein Urine Color Urine Appearance Urine pH Ur Specific [place] Urine Protein Urine Glucose (UA) Urine Ketones Urine Blood Urine Nitrate Urine Bilirubin Urine Urobilinogen Ur Leukocyte Esterase Urine RBC Urine WBC Ur Squamous Epith Cells Ur Renal Epithelial Cell Urine Bacteria 01/21/25 01/21/25 01/21/25 17:48 14:08 11:42 D-Dimer Carbon Dioxide Anion Gap POC Glucose 147 H Troponin I 0.01 C-Reactive Protein Urine Color Yellow Urine Appearance Clear Urine pH 6.0 Ur Specific [place] 1.010 Urine Protein Negative Urine Glucose (UA) 3+ Urine Ketones 1+ Urine Blood Negative Urine Nitrate Negative Urine Bilirubin Negative Urine Urobilinogen 0.2 Ur Leukocyte Esterase Negative Urine RBC None Urine WBC Occasional Ur Squamous Epith Cells 5-10 Ur Renal Epithelial Cell 3-5 Urine Bacteria 1+ 01/21/25 11:07 D-Dimer 1.97 H Carbon Dioxide 26 Anion Gap 11.0 POC Glucose Troponin I C-Reactive Protein 211.3 H Urine Color Urine Appearance Urine pH Ur Specific [place] Urine Protein Urine Glucose (UA) Urine Ketones Urine Blood Urine Nitrate Urine Bilirubin Urine Urobilinogen Ur Leukocyte Esterase Urine RBC Urine WBC Ur Squamous Epith Cells Ur Renal Epithelial Cell Urine Bacteria Preliminary micro results at discharge 01/21/25 11:22 Blood Culture - Preliminary Blood NO GROWTH AFTER 24 HOURS 01/21/25 11:07 Blood Culture - Preliminary Blood NO GROWTH AFTER 24 HOURS DS: Diagnosis Discharge Diagnosis (1) Acute on chronic heart failure with preserved ejection fraction (HFpEF): Status: Acute Code(s): I50.33 - Acute on chronic diastolic (congestive) heart failure (2) PAF (paroxysmal atrial fibrillation): Status: Chronic Code(s): I48.0 - Paroxysmal atrial fibrillation (3) Pneumonia: Status: Acute Code(s): J18.9 - Pneumonia, unspecified organism Qualifiers: Laterality: right Lung location: lower lobe of lung Pneumonia type: due to unspecified organism Qualified Code(s): J18.9 - Pneumonia, unspecified organism (4) Sepsis: Status: Acute Code(s): A41.9 - Sepsis, unspecified organism Qualifiers: Acute respiratory failure type: with hypoxia Sepsis acute organ dysfunction status: with acute organ dysfunction Sepsis type: sepsis due to unspecified organism Severe sepsis acute organ dysfunction type: acute respiratory failure Severe sepsis shock status: without septic shock Qualified Code(s): A41.9 - Sepsis, unspecified organism; R65.20 - Severe sepsis without septic shock; J96.01 - Acute respiratory failure with hypoxia (5) Positive colorectal cancer screening using Cologuard test: Status: Acute Code(s): R19.5 - Other fecal abnormalities (6) Weight loss: Status: Acute Code(s): R63.4 - Abnormal weight loss (7) Type 2 diabetes mellitus with diabetic neuropathy: Status: Chronic Code(s): E11.40 - Type 2 diabetes mellitus with diabetic neuropathy, unspecified Qualifiers: Diabetes mellitus prison 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 Qualified Code(s): E11.40 - Type 2 diabetes mellitus with diabetic neuropathy, unspecified; Z79.4 - detention (current) use of insulin (8) Obesity (BMI 30-39.9): Status: Acute Code(s): E66.9 - Obesity, unspecified Meds Home Medications and Allergies Home Medications ?Medication ?Instructions ?Recorded ?Confirmed ?Type insulin lispro 100 unit/mL 0 sliding scale dose SQ AC Diabetes 03/19/23 01/21/25 History subcutaneous pen ergocalciferol (vitamin D2) 1,250 1,250 mcg PO WEEKLY #14 caps 08/03/24 01/21/25 Rx mcg (50,000 unit) capsule famotidine 20 mg tablet 20 mg PO HS 08/07/24 01/21/25 History flecainide 100 mg tablet 100 mg PO BID 08/07/24 01/21/25 History memantine 7 mg capsule 7 mg PO DAILY #90 ea 09/16/24 01/21/25 Rx sprinkle,extended release 24hr losartan 50 mg tablet 50 mg PO DAILY #90 tabs 09/17/24 01/21/25 Rx dexlansoprazole 60 mg 60 mg PO DAILY 09/28/24 01/21/25 History capsule,biphase delayed release blood-glucose sensor (Dexcom G7 #14 ea 11/02/24 01/18/25 Rx Sensor device) montelukast 10 mg tablet 10 mg PO HS #90 tabs 11/09/24 01/21/25 Rx (Singulair) cholecalciferol (vitamin D3) 50 50 mcg PO DAILY #90 caps 11/12/24 01/21/25 Rx mcg (2,000 unit) capsule clopidogrel 75 mg tablet 75 mg PO DAILY #90 tabs 11/18/24 01/21/25 Rx insulin degludec 100 unit/mL (3 45 unit SQ HS 11/24/24 01/21/25 History mL) subcutaneous pen (Tresiba FlexTouch U-100 insulin) dapagliflozin propanediol 10 mg 10 mg PO DAILY #90 tabs 12/24/24 01/21/25 Rx tablet (Farxiga) duloxetine 30 mg capsule,delayed 30 mg PO DAILY 01/18/25 01/21/25 History release evolocumab 140 mg/mL subcutaneous 140 mg SQ MONTHLY 01/18/25 01/21/25 History pen injector (Repatha SureClick) furosemide 40 mg tablet 80 mg PO SUTUTH 01/18/25 01/21/25 History furosemide 40 mg tablet (Lasix) 40 mg PO MOWEFRSA 01/18/25 01/21/25 History rivaroxaban 20 mg tablet (Xarelto) 20 mg PO QPMWITHMEAL 01/18/25 01/21/25 History tirzepatide 10 mg/0.5 mL 10 mg SQ WEEKLY 01/18/25 01/21/25 History subcutaneous pen injector (Laney) metoprolol succinate 25 mg 25 mg PO BID 30 days #60 tabs 01/20/25 01/21/25 Rx tablet,extended release 24 hr cefdinir 300 mg capsule 300 mg PO BID 5 days #10 caps 01/22/25 Rx spironolactone 25 mg tablet 25 mg PO DAILY 30 days #30 tabs 01/22/25 Rx New Prescriptions to Start Prescriptions: cefdinir Shannan,Robel spironolactone Shannan,Robel Allergies Allergy/AdvReac Type Severity Reaction Status Date / Time canagliflozin (From Invokana) Allergy Severe blisters Verified 12/24/24 13:13 metformin Allergy Mild Diarrhea, Verified 12/24/24 13:13 nausea, dizziness sitagliptin (From Januvia) Allergy Mild Hives Verified 12/24/24 13:13 linaclotide (From Linzess) Allergy Rash Verified 12/24/24 13:13 metronidazole (From Metrogel) Allergy Rash Verified 12/24/24 13:13 nystatin Allergy Dizziness Verified 12/24/24 13:13 rosuvastatin (From Crestor) Allergy Dizziness Verified 12/24/24 13:13 semaglutide (From Ozempic) AdvReac Severe Abdominal Verified 12/24/24 13:13 Pain atorvastatin (From Lipitor) AdvReac Intermediate body aches Verified 12/24/24 13:13 andmental confusion isosorbide AdvReac Headache Verified 01/20/25 07:27 Discharge Plan Disposition Patient Disposition: Home, Self-Care Condition: Fair Follow up Plan Follow up with: Radha Petit APRN [Primary Care Provider, Family Practice] - 1 week Prescriptions/Medication Reconciliation: New spironolactone 25 mg Tablet 25 mg PO DAILY 30 Days Qty: 30 0RF cefdinir 300 mg capsule 300 mg PO BID 5 Days Qty: 10 0RF Continued dexlansoprazole 60 mg capsule,biphase delayed releas 60 mg PO DAILY Patient Comments: TAKE 1 CAPSULE BY MOUTH ONCE DAILY dapagliflozin propanediol [Farxiga] 10 mg tablet 10 mg PO DAILY Qty: 90 2RF insulin lispro 100 unit/mL insulin pen 0 sliding scale dose SQ AC Patient Comments: 125-150 6 units 150-200 8 units over 200 10 units ergocalciferol (vitamin D2) 1,250 mcg (50,000 unit) capsule 1,250 mcg PO WEEKLY Qty: 14 3RF memantine 7 mg capsule,sprinkle,ER 24hr 7 mg PO DAILY Qty: 90 1RF losartan 50 mg tablet 50 mg PO DAILY Qty: 90 1RF (DME) Dexcom G7 Sensor Device See Rx Instructions .Route Qty: 14 3RF Rx Instructions: As directed montelukast [Singulair] 10 mg tablet 10 mg PO HS Qty: 90 3RF cholecalciferol (vitamin D3) 50 mcg (2,000 unit) capsule 50 mcg PO DAILY Qty: 90 3RF clopidogrel 75 mg tablet 75 mg PO DAILY Qty: 90 2RF insulin degludec [Tresiba FlexTouch U-100] 100 unit/mL (3 mL) insulin pen 45 unit SQ HS Rx Instructions: INJECT SUBCUTANEOUSLY AT BEDTIME Xarelto 20 mg tablet 20 mg PO QPMWITHMEAL Mounjaro 10 mg/0.5 mL pen injector 10 mg SQ WEEKLY Rx Instructions: INJECT 1 SYRINGE SUBCUTANEOUSLY ONCE A WEEK (every Saturday) furosemide 40 mg tablet 80 mg [address] [facility] Patient Comments: TAKE 1 TABLET BY MOUTH ONCE DAILY ON SATURDAY, SATURDAY AND SATURDAY AND SATURDAY, TAKE 2 TABLETS BY MOUTH ON SATURDAY, SATURDAY, AND SATURDAY duloxetine 30 mg capsule,delayed release(DR/EC) 30 mg PO DAILY Patient Comments: TAKE 1 CAPSULE BY MOUTH ONCE DAILY furosemide [Lasix] 40 mg tablet 40 mg PO Rx Instructions: Take Lasix 40mg MWFSat Take Las[facility] 140 mg/mL pen injector 140 mg SQ MONTHLY Rx Instructions: INJECT CONTENTS OF 3 PEN SUBCUTANEOUSLY ONCE EVERY MONTH metoprolol succinate 25 mg tablet extended release 24 hr 25 mg PO BID 30 Days Qty: 60 3RF famotidine 20 mg tablet 20 mg PO HS flecainide 100 mg tablet 100 mg PO BID Discontinued amoxicillin-pot clavulanate [Augmentin] 500-125 mg tablet 1 tab PO TID 5 Days Qty: 15 0RF Problem Reconciliation Problems Reviewed?: Yes Patient Discharge Instructions Patient Instructions: DI for Heart Failure, DI for Atrial Fibrillation, Stop Light Heart Failure Print Language: Gabonese Providers Primary Care Provider: Radha Petit Admit Provider: Corey Esteban Attending Provider: Corey Esteban
[2025-01-22] MEDS: AZITHROMYCIN 500 MG in 0.9 % SODIUM CHLORIDE 250 ML 250 MG IV (15:17)
[2025-01-22 16:32] LABS: POC Glucose,Bedside 141 gm/dL (70-110)
--- NOTE | 2025-01-22 17:40 | EXP.PN ---
Subjective *Date: 01/22/25 *Time: 17:40 Interval history: Patient looks well today, but continues to endorse shortness of breath. No hypoxia noted. Patient and family very nervous to go home today as patient was readmitted overnight, will monitor overnight for reevaluation of discharge in the morning. Exam Data for Last 24 hours Vital signs and Labs for Last 24 Hours: Temp Pulse Resp BP Pulse Ox O2 Del Method O2 Flow Rate 98.4 F 114 H 16 127/68 97 Room Air 1 01/22/25 15:51 01/22/25 15:51 01/22/25 15:51 01/22/25 15:51 01/22/25 15:51 01/22/25 17:00 01/22/25 07:58 Laboratory Results - last 24 hr 01/21/25 11:07: Carbon Dioxide 26, Anion Gap 11.0, C-Reactive Protein 211.3 H 01/21/25 17:48: POC Glucose 147 H 01/21/25 20:31: POC Glucose 155 H 01/22/25 05:44: POC Glucose 81 01/22/25 11:03: POC Glucose 76 01/22/25 16:23: POC Glucose 141 H I & O for Last 24 hours: Intake & Output 01/19/25 01/20/25 01/21/25 01/22/25 23:59 23:59 23:59 23:59 Intake Total 1940 / 2180 440 / 440 Output Total 1400 / 1900 3150 / 3150 Balance 540 / 280 -2710 / -2710 Weight 95.481 kg 94.892 kg Microbiology Reports for the Last 24 Hours: Microbiology 01/21/25 11:22 Blood Blood Culture - Preliminary NO GROWTH AFTER 24 HOURS 01/21/25 11:07 Blood Blood Culture - Preliminary NO GROWTH AFTER 24 HOURS Constitutional Constitutional: no acute distress *Routine HEENT Exam Head: Present normocephalic Eye: Present EOMI and PERRL ENT: Present mucous membranes moist *Routine Neck Exam Neck: Present supple; Absent lymphadenopathy *Routine Respiratory Exam Respiratory: Absent CTA bilaterally, wheezes or distant breath sounds Comments: Right lower lobe crackles *Routine Cardiovascular Exam Cardiovascular: Present RRR *Routine Abdominal Exam Abdominal: Present soft and normoactive bowel sounds; Absent tenderness *Routine Extremities Exam Extremities: Absent cyanosis, clubbing or edema *Routine Skin Exam Skin: Present warm; Absent rash *Routine Neurological Exam Neurological: Present alert and oriented X3 Assessment and Plan *Assessment and plan (1) Acute on chronic heart failure with preserved ejection fraction (HFpEF): Status: Acute Category: Medical Code(s): I50.33 - Acute on chronic diastolic (congestive) heart failure (2) PAF (paroxysmal atrial fibrillation): Status: Chronic Category: Medical Code(s): I48.0 - Paroxysmal atrial fibrillation (3) Pneumonia: Status: Acute Qualifiers: Laterality: right Lung location: lower lobe of lung Pneumonia type: due to unspecified organism Qualified Code(s): J18.9 - Pneumonia, unspecified organism Category: Medical Code(s): J18.9 - Pneumonia, unspecified organism (4) Sepsis: Status: Acute Qualifiers: Acute respiratory failure type: with hypoxia Sepsis acute organ dysfunction status: with acute organ dysfunction Sepsis type: sepsis due to unspecified organism Severe sepsis acute organ dysfunction type: acute respiratory failure Severe sepsis shock status: without septic shock Qualified Code(s): A41.9 - Sepsis, unspecified organism; R65.20 - Severe sepsis without septic shock; J96.01 - Acute respiratory failure with hypoxia Category: Medical Code(s): A41.9 - Sepsis, unspecified organism (5) Positive colorectal cancer screening using Cologuard test: Status: Acute Category: Medical Code(s): R19.5 - Other fecal abnormalities (6) Weight loss: Status: Acute Category: Medical Code(s): R63.4 - Abnormal weight loss (7) Type 2 diabetes mellitus with diabetic neuropathy: Status: Chronic 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 Initial BNP severely elevated 14,000. Discussed case with ER physician, request admission for treatment of pneumonia and HFpEF. Agreed to admit for further care. Acute on chronic HFpEF CAD Paroxysmal A-fib Hypertension - Patient's BNP initially elevated at 14,000, dyspnea with exertion, remains in A-fib with heart rate in the low 100s. Will continue flecainide 100 mg twice daily, continue metoprolol succinate 25 mg twice daily. - Continue Lasix 40 mg daily. Has diuresed well, net -2.1 L. - Monitor on telemetry. - Supplemental oxygen as needed for goal sats greater 90%. - Holding losartan at this time, BP stable. Restart when appropriate. - Continue Plavix 75 mg daily, Xarelto 20 mg nightly - White count 13.6, hemoglobin 13.7 yesterday. Repeat CBC, CMP, magnesium ordered for the morning #Sepsis #Pneumonia #Pleural effusion - Sputum culture from last admission growing Streptococcus constellatus sensitive to ceftriaxone. - Continue ceftriaxone 1 g daily. Discontinue vancomycin, azithromycin. ? Follow-up blood cultures. ? Patient remains on room air. - Per my review of CT, has persistent right lower lobe consolidation with effusion. ? Patient feels very nervous about going home today, walk test today did not show hypoxia but patient feels short of breath. Will monitor overnight, and if patient improves tomorrow we will consider discharge. Diabetes: A1c 6.4 the beginning of last month, consistent with well-controlled - Continue sliding scale insulin and fingersticks ACHS - Continue basal insulin with insulin glargine 30 units nightly, will titrate to home regimen (45units HS) once patient eating Continue Cymbalta 30 mg daily for mood Continue famotidine 20 mg nightly for GERD Full code Xarelto 20 mg daily Diabetic diet
--- NOTE | 2025-01-22 17:40 | PC.NURSE ---
patient is a/ox4 and has been on RA for most of the shift with O2 sats above 90%. patient completed a walk test with techs this shift and O2 on RA during and after walk test was 93%-94%. new IV placed in the left forearm due to previous IV infiltrating. IV ABX infusing. tolerating diet. using bathroom independently with good output. no c/o pain this shift. call light within reach, no further requests at this time.
[2025-01-22 19:01] LABS: Hematocrit 36.7 % (37.0-47.0); Hemoglobin 12.1 g/dL (12.2-16.2); Immature Granulocytes % 7.6 %; Mean Corpuscular HGB Conc 33.0 g/dL (31.8-35.4); Mean Corpuscular Hemoglobin 29.1 pg (27.0-31.2); Mean Corpuscular Volume 88.2 fl (81-99); Nucleated Red Blood Cells % 0.5 %; Platelet Count 348 K/mm3 (142-424); Red Blood Count 4.16 M/mm3 (4.20-5.40); Red Cell Distribution Width-SD 44.0 fL; White Blood Count 11.4 K/mm3 (4.8-10.8)
[2025-01-22 19:12] LABS: Albumin Level 2.8 g/dl (3.5-5.0); Chloride 106 mmol/L (98-107); Potassium 3.2 mmoL/L (3.5-5.1); Sodium 138 mmol/L (136-145)
[2025-01-22 19:15] LABS: Alanine Aminotransferase 14 U/L (12-78); Albumin/Globulin Ratio 0.9 (1.1-1.8); Alkaline Phosphatase 82 U/L (38-126); Anion Gap 9.2 mEq/L (5-15); Aspartate Amino Transferase 24 U/L (14-36); Bilirubin,Total 0.2 mg/dl (0.2-1.3); Blood Urea Nitrogen 18 mg/dl (7-17); Calcium 8.2 mg/dl (8.4-10.2); Carbon Dioxide 26 mmol/L (22.0-30.0); Creatinine Clearance Estimated 77 mL/min (50-200); Creatinine,Serum 0.80 mg/dl (0.52-1.04); Estimated Glomerular Filt Rate 71 ml/min (>60); GFR (African American) 86 ML/MIN (>60); Globulin 3.1 g/dL (1.3-3.2); Glucose 158 mg/dl (74-100); Magnesium 1.7 mg/dl (1.6-2.3); Total Protein,Serum 5.9 g/dl (6.3-8.2)
[2025-01-22 19:33] LABS: Hypochromasia 1+; Macrocytosis 1+; Total Cells Counted 100
[2025-01-22 21:26] LABS: POC Glucose,Bedside 194 gm/dL (70-110)
[2025-01-22] MEDS: MONTELUKAST SODIUM 10MG TAB 10 MG PO (21:41)
[2025-01-22] MEDS: humaLOG 100 UNITS/ML 10ML VIAL (SSI) SUBCUT (21:42)
[2025-01-22] MEDS: FAMOTIDINE 20MG TABLET 20 MG PO (21:42)
[2025-01-22] MEDS: INSULIN GLARGINE 100 UNITS/ML 3ML FLEXPEN 30 UNIT SUBCUT (21:43)
[2025-01-23] VITALS: PULSE 90
[2025-01-23 02:17] LABS: POC Glucose,Bedside 90 gm/dL (70-110)
--- NOTE | 2025-01-23 03:54 | PC.NURSE ---
Pt is A&OX4 tonight pt is sats at above 92 on RA. Pt is using the BR or the bsc with good output. No C/O pain or discomfort. B/S dropped about 2 am to 90. she drank some apple juice. Educated Pt on a dry weight for CHF PTs. Pt was very receptive to the idea. Explained about getting a Calendar and recording it every morning after voiding in the BR. On a digital scale. Taking this information to the MD office when going. So her provider could follow her progress. Call light was within reach. no further request were made at this time. DANIEL LE RN
[2025-01-23 04:00] VITALS: BP 119/66; PULSE 83; PULSE 90; RESP 12; TEMP 36.7; O2SAT 93; BMI 34.4
[2025-01-23 06:15] LABS: POC Glucose,Bedside 105 gm/dL (70-110)
[2025-01-23 07:21] LABS: Hematocrit 35.8 % (37.0-47.0); Hemoglobin 11.8 g/dL (12.2-16.2); Mean Corpuscular HGB Conc 33.0 g/dL (31.8-35.4); Mean Corpuscular Hemoglobin 29.0 pg (27.0-31.2); Mean Corpuscular Volume 88.0 fl (81-99); Platelet Count 402 K/mm3 (142-424); Red Blood Count 4.07 M/mm3 (4.20-5.40); White Blood Count 10.1 K/mm3 (4.8-10.8)
[2025-01-23 07:45] LABS: Alanine Aminotransferase 15 U/L (12-78); Albumin Level 2.8 g/dl (3.5-5.0); Albumin/Globulin Ratio 0.9 (1.1-1.8); Alkaline Phosphatase 80 U/L (38-126); Anion Gap 8.2 mEq/L (5-15); Aspartate Amino Transferase 22 U/L (14-36); Bilirubin,Total 0.3 mg/dl (0.2-1.3); Blood Urea Nitrogen 14 mg/dl (7-17); Calcium 8.1 mg/dl (8.4-10.2); Carbon Dioxide 29 mmol/L (22.0-30.0); Chloride 105 mmol/L (98-107); Creatinine Clearance Estimated 76 mL/min (50-200); Creatinine,Serum 0.80 mg/dl (0.52-1.04); Estimated Glomerular Filt Rate 71 ml/min (>60); GFR (African American) 86 ML/MIN (>60); Globulin 3.2 g/dL (1.3-3.2); Glucose 99 mg/dl (74-100); Magnesium 1.7 mg/dl (1.6-2.3); Potassium 3.2 mmoL/L (3.5-5.1); Sodium 139 mmol/L (136-145); Total Protein,Serum 6.0 g/dl (6.3-8.2)
[2025-01-23 07:50] LABS: C-Reactive Protein 65.8 mg/L (0-4)
[2025-01-23 08:00] VITALS: BP 122/69; PULSE 113; PULSE 90; RESP 16; TEMP 36.8; O2SAT 93
[2025-01-23 08:00] LABS: Procalcitonin 1.11 ng/mL (0.0-2.0)
[2025-01-23 08:59] LABS: Macrocytosis 1+; Total Cells Counted 100
[2025-01-23 09:00] LABS: Polychromasia 1+
--- NOTE | 2025-01-23 11:41 | EXP.DC.SUM ---
General Admission date:: 01/21/25 Hospital Course Hospital Course Hospital Course: Marybel Shin is a 69-year-old female who presented with shortness of breath, persistent leukocytosis, and A-fib. Initial BNP severely elevated 14,000. Discussed case with ER physician, request admission for treatment of pneumonia and HFpEF. Agreed to admit for further care. #HFpEF exacerbation #CAD #Paroxysmal A-fib #Hypertension ? Patient was recently hospitalized for community-acquired pneumonia and discharged in stable condition. However, unfortunately became volume overloaded and returned with HFpEF exacerbation. - Patient's BNP initially elevated at 14,000, with dyspnea on exertion. ? Clinically improved with IV Lasix diuresis. Net -1.5 L. ? Continue home Lasix 40/80 mg alternation, started spironolactone 25 mg, continue home Farxiga 10 mg. ? Continue home flecainide 100 mg twice daily, continue metoprolol succinate 25 mg twice daily for A-fib. Heart rate mostly in the 90s on telemetry. May run a little higher with ongoing resolution of pneumonia. ? Continue home losartan, Plavix 75 mg daily, Xarelto 20 mg nightly. ? Will follow-up with PCP within 1 week. #Sepsis, resolved #Community-acquired pneumonia #Pleural effusion ? CT chest showed previous right lower lobe pneumonia with small associated effusion. - Sputum culture from last admission growing Streptococcus constellatus sensitive to ceftriaxone. Blood cultures NGTD. - Clinically improved with IV ceftriaxone, transitioned to cefdinir 300 mg twice daily for 5 more days. ? Patient remained on room air during hospital course. She was initially nervous about going home, monitored additional night with improvement in subjective feeling of shortness of breath. ? Finish antibiotic course with cefdinir 30 mg twice daily for 5 more days. Diabetes: A1c 6.4 the beginning of last month, consistent with well-controlled - Continue home insulin, Farxiga, Mounjaro. Continue Cymbalta 30 mg daily for mood Continue famotidine 20 mg nightly for GERD Exam Data for Last 24 hours Vital signs and Labs for Last 24 Hours: Temp Pulse Resp BP Pulse Ox O2 Del Method O2 Flow Rate 98.3 F 113 H 16 122/69 93 L Room Air 1 01/23/25 08:00 01/23/25 08:00 01/23/25 08:00 01/23/25 08:00 01/23/25 08:00 01/23/25 10:49 01/22/25 07:58 Laboratory Results - last 24 hr 01/22/25 16:23: POC Glucose 141 H 01/22/25 18:37: WBC 11.4 H, RBC 4.16 L, Hgb 12.1 L, Hct 36.7 L, MCV 88.2, MCH 29.1, MCHC 33.0, RDW 13.7, Plt Count 348, MPV 9.9, Neut % (Auto) 55.5, Lymph % (Auto) 22.4, Carbon % (Auto) 10.5 H, Eos % (Auto) 2.9, Baso % (Auto) 1.1, Neut # (Auto) 6.3, Lymph # (Auto) 2.5, Carbon # (Auto) 1.2 H, Eos # (Auto) 0.3, Baso # (Auto) 0.1, Total Counted 100, Neutrophils % (Manual) 64, Lymphocytes % (Manual) 23, Monocytes % (Manual) 9, Eosinophils % (Manual) 4 H, Platelet Estimate Normal, Hypochromasia 1+, Macrocytosis 1+, Sodium 138, Potassium 3.2 L, Chloride 106, Carbon Dioxide 26, Anion Gap 9.2, BUN 18 H, Creatinine 0.80, Estimated Creat Clear 77, Estimated GFR 71, Est GFR ( Amer) 86, Glucose 158 H, Calcium 8.2 L, Magnesium 1.7, Total Bilirubin 0.2, AST 24, ALT 14, Alkaline Phosphatase 82, Total Protein 5.9 L, Albumin 2.8 L D, Globulin 3.1, Albumin/Globulin Ratio 0.9 L 01/22/25 21:15: POC Glucose 194 H 01/23/25 02:09: POC Glucose 90 01/23/25 06:07: POC Glucose 105 01/23/25 06:55: WBC 10.1, RBC 4.07 L, Hgb 11.8 L, Hct 35.8 L, MCV 88.0, MCH 29.0, MCHC 33.0, RDW 13.7, Plt Count 402, MPV 10.0, Neut % (Auto) 56.5, Lymph % (Auto) 21.4, Carbon % (Auto) 10.3 H, Eos % (Auto) 3.6, Baso % (Auto) 1.0, Neut # (Auto) 5.7, Lymph # (Auto) 2.2, Carbon # (Auto) 1.0, Eos # (Auto) 0.4, Baso # (Auto) 0.1, Total Counted 100, Neutrophils % (Manual) 59, Band Neutrophils % 2.0, Lymphocytes % (Manual) 26, Monocytes % (Manual) 9, Eosinophils % (Manual) 3, Myelocytes % 1, Platelet Estimate Normal, Polychromasia 1+, Macrocytosis 1+, Sodium 139, Potassium 3.2 L, Chloride 105, Carbon Dioxide 29, Anion Gap 8.2, BUN 14, Creatinine 0.80, Estimated Creat Clear 76, Estimated GFR 71, Est GFR ( Amer) 86, Glucose 99 D, Calcium 8.1 L, Magnesium 1.7, Total Bilirubin 0.3, AST 22, ALT 15, Alkaline Phosphatase 80, C-Reactive Protein 65.8 H D, Total Protein 6.0 L, Albumin 2.8 L, Globulin 3.2, Albumin/Globulin Ratio 0.9 L, Procalcitonin 1.11 I & O for Last 24 hours: Intake & Output 01/20/25 01/21/25 01/22/25 01/23/25 23:59 23:59 23:59 23:59 Intake Total 1940 / 2180 1270 / 1520 690 / 690 Output Total 1400 / 1900 3150 / 3150 450 / 450 Balance 540 / 280 -1880 / -1630 240 / 240 Weight 95.481 kg 94.892 kg 93.621 kg Microbiology Reports for the Last 24 Hours: Microbiology 01/21/25 11:22 Blood Blood Culture - Preliminary NO GROWTH AFTER 48 HOURS 01/21/25 11:07 Blood Blood Culture - Preliminary NO GROWTH AFTER 48 HOURS Constitutional Constitutional: no acute distress *Routine HEENT Exam Head: Present normocephalic Eye: Present EOMI and PERRL ENT: Present mucous membranes moist *Routine Neck Exam Neck: Present supple; Absent lymphadenopathy *Routine Respiratory Exam Respiratory: Absent CTA bilaterally, wheezes or distant breath sounds Comments: Mild right lower lobe crackles *Routine Cardiovascular Exam Cardiovascular: Present RRR *Routine Abdominal Exam Abdominal: Present soft and normoactive bowel sounds; Absent tenderness *Routine Extremities Exam Extremities: Absent cyanosis, clubbing or edema *Routine Skin Exam Skin: Present warm; Absent rash *Routine Neurological Exam Neurological: Present alert and oriented X3 Results Data Completed and Pending Labs on day of discharge: Labs from last 24 hours 01/23/25 01/23/25 01/23/25 06:55 06:07 02:09 WBC 10.1 RBC 4.07 L Hgb 11.8 L Hct 35.8 L MCV 88.0 MCH 29.0 MCHC 33.0 RDW 13.7 Plt Count 402 MPV 10.0 Neut % (Auto) 56.5 Lymph % (Auto) 21.4 Carbon % (Auto) 10.3 H Eos % (Auto) 3.6 Baso % (Auto) 1.0 Neut # (Auto) 5.7 Lymph # (Auto) 2.2 Carbon # (Auto) 1.0 Eos # (Auto) 0.4 Baso # (Auto) 0.1 Total Counted 100 Neutrophils % (Manual) 59 Band Neutrophils % 2.0 Lymphocytes % (Manual) 26 Monocytes % (Manual) 9 Eosinophils % (Manual) 3 Myelocytes % 1 Platelet Estimate Normal Polychromasia 1+ Hypochromasia Macrocytosis 1+ Sodium 139 Potassium 3.2 L Chloride 105 Carbon Dioxide 29 Anion Gap 8.2 BUN 14 Creatinine 0.80 Estimated Creat Clear 76 Estimated GFR 71 Est GFR ( Amer) 86 Glucose 99 D POC Glucose 105 90 Calcium 8.1 L Magnesium 1.7 Total Bilirubin 0.3 AST 22 ALT 15 Alkaline Phosphatase 80 C-Reactive Protein 65.8 H D Total Protein 6.0 L Albumin 2.8 L Globulin 3.2 Albumin/Globulin Ratio 0.9 L Procalcitonin 1.11 01/22/25 01/22/25 01/22/25 21:15 18:37 16:23 WBC 11.4 H RBC 4.16 L Hgb 12.1 L Hct 36.7 L MCV 88.2 MCH 29.1 MCHC 33.0 RDW 13.7 Plt Count 348 MPV 9.9 Neut % (Auto) 55.5 Lymph % (Auto) 22.4 Carbon % (Auto) 10.5 H Eos % (Auto) 2.9 Baso % (Auto) 1.1 Neut # (Auto) 6.3 Lymph # (Auto) 2.5 Carbon # (Auto) 1.2 H Eos # (Auto) 0.3 Baso # (Auto) 0.1 Total Counted 100 Neutrophils % (Manual) 64 Band Neutrophils % Lymphocytes % (Manual) 23 Monocytes % (Manual) 9 Eosinophils % (Manual) 4 H Myelocytes % Platelet Estimate Normal Polychromasia Hypochromasia 1+ Macrocytosis 1+ Sodium 138 Potassium 3.2 L Chloride 106 Carbon Dioxide 26 Anion Gap 9.2 BUN 18 H Creatinine 0.80 Estimated Creat Clear 77 Estimated GFR 71 Est GFR ( Amer) 86 Glucose 158 H POC Glucose 194 H 141 H Calcium 8.2 L Magnesium 1.7 Total Bilirubin 0.2 AST 24 ALT 14 Alkaline Phosphatase 82 C-Reactive Protein Total Protein 5.9 L Albumin 2.8 L D Globulin 3.1 Albumin/Globulin Ratio 0.9 L Procalcitonin Preliminary micro results at discharge 01/21/25 11:22 Blood Culture - Preliminary Blood NO GROWTH AFTER 48 HOURS 01/21/25 11:07 Blood Culture - Preliminary Blood NO GROWTH AFTER 48 HOURS DS: Diagnosis Discharge Diagnosis (1) Acute on chronic heart failure with preserved ejection fraction (HFpEF): Status: Acute Code(s): I50.33 - Acute on chronic diastolic (congestive) heart failure (2) PAF (paroxysmal atrial fibrillation): Status: Chronic Code(s): I48.0 - Paroxysmal atrial fibrillation (3) Pneumonia: Status: Acute Code(s): J18.9 - Pneumonia, unspecified organism Qualifiers: Laterality: right Lung location: lower lobe of lung Pneumonia type: due to unspecified organism Qualified Code(s): J18.9 - Pneumonia, unspecified organism (4) Sepsis: Status: Acute Code(s): A41.9 - Sepsis, unspecified organism Qualifiers: Acute respiratory failure type: with hypoxia Sepsis acute organ dysfunction status: with acute organ dysfunction Sepsis type: sepsis due to unspecified organism Severe sepsis acute organ dysfunction type: acute respiratory failure Severe sepsis shock status: without septic shock Qualified Code(s): A41.9 - Sepsis, unspecified organism; R65.20 - Severe sepsis without septic shock; J96.01 - Acute respiratory failure with hypoxia (5) Positive colorectal cancer screening using Cologuard test: Status: Acute Code(s): R19.5 - Other fecal abnormalities (6) Weight loss: Status: Acute Code(s): R63.4 - Abnormal weight loss (7) Type 2 diabetes mellitus with diabetic neuropathy: Status: Chronic Code(s): E11.40 - Type 2 diabetes mellitus with diabetic neuropathy, unspecified 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 Qualified Code(s): E11.40 - Type 2 diabetes mellitus with diabetic neuropathy, unspecified; Z79.4 - [facility] (current) use of insulin (8) Obesity (BMI 30-39.9): Status: Acute Code(s): E66.9 - Obesity, unspecified Meds Home Medications and Allergies Home Medications ?Medication ?Instructions ?Recorded ?Confirmed ?Type insulin lispro 100 unit/mL 0 sliding scale dose SQ AC Diabetes 03/19/23 01/21/25 History subcutaneous pen ergocalciferol (vitamin D2) 1,250 1,250 mcg PO WEEKLY #14 caps 08/03/24 01/21/25 Rx mcg (50,000 unit) capsule famotidine 20 mg tablet 20 mg PO HS 08/07/24 01/21/25 History flecainide 100 mg tablet 100 mg PO BID 08/07/24 01/21/25 History memantine 7 mg capsule 7 mg PO DAILY #90 ea 09/16/24 01/21/25 Rx sprinkle,extended release 24hr losartan 50 mg tablet 50 mg PO DAILY #90 tabs 09/17/24 01/21/25 Rx dexlansoprazole 60 mg 60 mg PO DAILY 09/28/24 01/21/25 History capsule,biphase delayed release blood-glucose sensor (Dexcom G7 #14 ea 11/02/24 01/18/25 Rx Sensor device) montelukast 10 mg tablet 10 mg PO HS #90 tabs 11/09/24 01/21/25 Rx (Singulair) cholecalciferol (vitamin D3) 50 50 mcg PO DAILY #90 caps 11/12/24 01/21/25 Rx mcg (2,000 unit) capsule clopidogrel 75 mg tablet 75 mg PO DAILY #90 tabs 11/18/24 01/21/25 Rx insulin degludec 100 unit/mL (3 45 unit SQ HS 11/24/24 01/21/25 History mL) subcutaneous pen (Tresiba FlexTouch U-100 insulin) dapagliflozin propanediol 10 mg 10 mg PO DAILY #90 tabs 12/24/24 01/21/25 Rx tablet (Farxiga) duloxetine 30 mg capsule,delayed 30 mg PO DAILY 01/18/25 01/21/25 History release evolocumab 140 mg/mL subcutaneous 140 mg SQ MONTHLY 01/18/25 01/21/25 History pen injector (Anurag Munson) furosemide 40 mg tablet 80 mg PO SUTUTH 01/18/25 01/21/25 History furosemide 40 mg tablet (Lasix) 40 mg PO MOWEFRSA 01/18/25 01/21/25 History rivaroxaban 20 mg tablet (Xarelto) 20 mg PO QPMWITHMEAL 01/18/25 01/21/25 History tirzepatide 10 mg/0.5 mL 10 mg SQ WEEKLY 01/18/25 01/21/25 History subcutaneous pen injector (Manjualayna) metoprolol succinate 25 mg 25 mg PO BID 30 days #60 tabs 01/20/25 01/21/25 Rx tablet,extended release 24 hr cefdinir 300 mg capsule 300 mg PO BID 5 days #10 caps 01/22/25 Rx spironolactone 25 mg tablet 25 mg PO DAILY 30 days #30 tabs 01/22/25 Rx New Prescriptions to Start Prescriptions: cefdinir Robel Campbell spironolactone Robel Campbell Allergies Allergy/AdvReac Type Severity Reaction Status Date / Time canagliflozin (From Invokana) Allergy Severe blisters Verified 12/24/24 13:13 metformin Allergy Mild Diarrhea, Verified 12/24/24 13:13 nausea, dizziness sitagliptin (From Januvia) Allergy Mild Hives Verified 12/24/24 13:13 linaclotide (From Linzess) Allergy Rash Verified 12/24/24 13:13 metronidazole (From Metrogel) Allergy Rash Verified 12/24/24 13:13 nystatin Allergy Dizziness Verified 12/24/24 13:13 rosuvastatin (From Crestor) Allergy Dizziness Verified 12/24/24 13:13 semaglutide (From Ozempic) AdvReac Severe Abdominal Verified 12/24/24 13:13 Pain atorvastatin (From Lipitor) AdvReac Intermediate body aches Verified 12/24/24 13:13 andmental confusion isosorbide AdvReac Headache Verified 01/20/25 07:27 Discharge Plan Disposition Patient Disposition: Home, Self-Care Condition: Fair Follow up Plan Follow up with: Radha Petit APRN [Primary Care Provider, Family Practice] - 02/02/25 10:00 am Prescriptions/Medication Reconciliation: New spironolactone 25 mg Tablet 25 mg PO DAILY 30 Days Qty: 30 0RF cefdinir 300 mg capsule 300 mg PO BID 5 Days Qty: 10 0RF Continued dexlansoprazole 60 mg capsule,biphase delayed releas 60 mg PO DAILY Patient Comments: TAKE 1 CAPSULE BY MOUTH ONCE DAILY dapagliflozin propanediol [Farxiga] 10 mg tablet 10 mg PO DAILY Qty: 90 2RF insulin lispro 100 unit/mL insulin pen 0 sliding scale dose SQ AC Patient Comments: 125-150 6 units 150-200 8 units over 200 10 units ergocalciferol (vitamin D2) 1,250 mcg (50,000 unit) capsule 1,250 mcg PO WEEKLY Qty: 14 3RF memantine 7 mg capsule,sprinkle,ER 24hr 7 mg PO DAILY Qty: 90 1RF losartan 50 mg tablet 50 mg PO DAILY Qty: 90 1RF (DME) Dexcom G7 Sensor Device See Rx Instructions .Route Qty: 14 3RF Rx Instructions: As directed montelukast [Singulair] 10 mg tablet 10 mg PO HS Qty: 90 3RF cholecalciferol (vitamin D3) 50 mcg (2,000 unit) capsule 50 mcg PO DAILY Qty: 90 3RF clopidogrel 75 mg tablet 75 mg PO DAILY Qty: 90 2RF insulin degludec [Tresiba FlexTouch U-100] 100 unit/mL (3 mL) insulin pen 45 unit SQ HS Rx Instructions: INJECT SUBCUTANEOUSLY AT BEDTIME Xarelto 20 mg tablet 20 mg PO QPMWITHMEAL Mounjaro 10 mg/0.5 mL pen injector 10 mg SQ WEEKLY Rx Instructions: INJECT 1 SYRINGE SUBCUTANEOUSLY ONCE A WEEK (every Saturday) furosemide 40 mg tablet 80 mg PO [facility] Patient Comments: TAKE 1 TABLET BY MOUTH ONCE DAILY ON SATURDAY, SATURDAY AND SATURDAY AND SATURDAY, TAKE 2 TABLETS BY MOUTH ON SATURDAY, SATURDAY, AND SATURDAY duloxetine 30 mg capsule,delayed release(DR/EC) 30 mg PO DAILY Patient Comments: TAKE 1 CAPSULE BY MOUTH ONCE DAILY furosemide [Lasix] 40 mg tablet 40 mg PO Rx Instructions: Take Lasix 40mg MWFSat Take Lasix 80mg on TThSun Repatha SureClick 140 mg/mL pen injector 140 mg SQ MONTHLY Rx Instructions: INJECT CONTENTS OF 3 PEN SUBCUTANEOUSLY ONCE EVERY MONTH metoprolol succinate 25 mg tablet extended release 24 hr 25 mg PO BID 30 Days Qty: 60 3RF famotidine 20 mg tablet 20 mg PO HS flecainide 100 mg tablet 100 mg PO BID Discontinued amoxicillin-pot clavulanate [Augmentin] 500-125 mg tablet 1 tab PO TID 5 Days Qty: 15 0RF Problem Reconciliation Problems Reviewed?: Yes Patient Discharge Instructions Patient Instructions: DI for Heart Failure, DI for Atrial Fibrillation, Stop Light Pneumonia, Stop Light COPD, Stop Light Heart Failure Print Language: B[place] Providers Primary Care Provider: Radha Petit Admit Provider: Corey Esteban Attending Provider: Corey Esteban
--- NOTE | 2025-01-23 11:46 | PC.NURSE ---
Pt. states she took all her morning medications from the container she has in her room.
[2025-01-24 09:06] LABS: POC Glucose,Bedside 115 gm/dL (70-110)
--- NOTE | 2025-01-25 10:43 | SW/DCPLANNER ---
Spoke with patient on the phone. Patient stated that she is doing good. Patient stated that she is aware of her upcoming appointment. Patient stated that she was able to get her new medicine picked up. Patient stated that she has no concerns or questions at this time. Patient stated that everyone on the 2nd floor was so nice. Pauly Darnell
== END 2025-01-23 12:45 | disposition home or self-care (01) ==
LOC: ER 14:06 → 2ND 15:36
PROVIDERS: Nurse Practitioner; Student in an Organized Health Care Education/Training Program; Admitting Provider Internal Medicine Adolescent Medicine; Emergency Provider Student in an Organized Health Care Education/Training Program; PCP Family Medicine; Visit Provider Internal Medicine Adolescent Medicine
DX: I11.0 Hypertensive heart disease with heart failure (principal); I50.33 Acute on chronic diastolic (congestive) heart failure; I48.0 Paroxysmal atrial fibrillation; J18.9 Pneumonia, unspecified organism; A41.9 Sepsis, unspecified organism; R65.20 Severe sepsis without septic shock; E11.43 Type 2 diabetes mellitus with diabetic autonomic (poly)neuropathy; K31.84 Gastroparesis; J96.01 Acute respiratory failure with hypoxia; E66.9 Obesity, unspecified; F39 Unspecified mood [affective] disorder; K21.9 Gastro-esophageal reflux disease without esophagitis; J90 Pleural effusion, not elsewhere classified; I25.118 Atherosclerotic heart disease of native coronary artery with other forms of angina pectoris; J44.9 Chronic obstructive pulmonary disease, unspecified; R59.0 Localized enlarged lymph nodes; F41.9 Anxiety disorder, unspecified; J98.11 Atelectasis; Z68.34 Body mass index [BMI] 34.0-34.9, adult; Z79.4 Long term (current) use of insulin; Z86.73 Personal history of transient ischemic attack (TIA), and cerebral infarction without residual deficits; Z88.1 Allergy status to other antibiotic agents; Z88.3 Allergy status to other anti-infective agents; Z88.6 Allergy status to analgesic agent; Z88.8 Allergy status to other drugs, medicaments and biological substances; Z79.85 Long-term (current) use of injectable non-insulin antidiabetic drugs; Z79.01 Long term (current) use of anticoagulants; Z79.02 Long term (current) use of antithrombotics/antiplatelets; Z79.899 Other long term (current) drug therapy
CPT/HCPCS: 96361; 96365; 96366; 96367; 96375; 36415; 71045; 71275; 74177; 80053; 81001; 82803; 82962; 83690; 83735; 83880; 84145; 84484; 85007; 85014; 85018; 85025; 85048; 85049; 85378; 85610; 85651; 85730; 86140; 87040; 87636; 93005; 99285; G0378; J0456; J0696; J1938; J1939; J3375; J3475; J7030; J7050; Q9967

== ENCOUNTER 2025-02-02 11:37 | Outpatient (CLI) | payer MEDICARE, MEDICAID, SELFPAY ==
--- OUTSIDE RECORDS SUMMARY | 2025-02-02 11:40 | XMS_ITS | Encounter Summary ---
Author Organization Healthcare Address [address] [place] [address] Care Team Providers Care Green Feed Attendant Name Role Phone Reva Lou Primary Care Provider [phone] Encounter Details Date Type Department Care Team (Late st Contact Info) Description 12/06/2020 Community [facility] [address] [place] [address] Reva Lou PA [address] [place] [address] Lupus (CMS/HCC) (Primary Dx) Social [...] erythematosus documented in this encounter Care Teams Green Feed Attendant Relationship Specialty Start Date End Date Reva Lou PA [address] [place] [address] PCP - General 09/30/20 documented as of this encounter
--- OUTSIDE RECORDS SUMMARY | 2025-02-02 11:40 | XMS_ITS | Encounter Summary ---
Author Organization [facility] Address [address] [place] [address], [address] [place] [address] Care Team Providers Care Burning Supervisor Name Role Phone Alice Rutledge APRN - HYDROGEN TREATER Primary Care Prov ider Reason for Visit * Reason Comments Medication Refill Encounter Details Date Type Department Care Team (Late st Contact Info) Description 11/05/2019 Refill [facility] Endocrinology [address] [place] [address] Aria Villarreal MD [address] [place], [place] [phone] Medication Refill Social History Tobacco Use Types [...] than three times a week 08/06/2019 Attends Roman [employer] Services Not on file 08/05 Active Member [...] documented as of this encounter Care Teams Burning Supervisor Relationship Specialty Start Date End Date Alice Rutledge, EYEGLASS FRAMES INSPECTOR - HYDROGEN TREATER [address] [address] PCP - General Family Nurse Practitioner 05/19/19 documented as of this encounter
--- OUTSIDE RECORDS SUMMARY | 2025-02-02 11:40 | XMS_ITS | Encounter Summary ---
Author Organization [facility] Address [address] [place] [address], [address] [place] [address] Care Team Providers Care Wood Mill Supervisor Name Role Phone Alice Rutledge APRN - ASPHALT ROLLER PERSON Primary Care Prov ider Reason for Visit * Reason Comments Medication Refill Encounter Details Date Type Department Care Team (Late st Contact Info) Description 10/19/2019 Refill [facility] Endocrinology [address] [place] [address] Aria Villarreal MD [address] [place], [place] [phone] Medication Refill Social History Tobacco Use Types [...] than three times a week 08/06/2019 Attends Church Services Not on file 08/05 Active Member [...] documented as of this encounter Care Teams Wood Mill Supervisor Relationship Specialty Start Date End Date Alice Rutledge, KNITTING MACHINE OPERATOR AUTOMATIC - ASPHALT ROLLER PERSON [address] [place] [address] PCP - General Family Nurse Practitioner 05/19/19 documented as of this encounter
--- OUTSIDE RECORDS SUMMARY | 2025-02-02 11:40 | XMS_ITS | Encounter Summary ---
Author Organization [facility] Address [address] [place] [address] Care Team Providers Care Drawing Tender Name Role Phone Alice Rutledge Primary Care Provider Michelle Solomon MD Unavailable [phone] Michelet Gutierrez MD Unavailable [phone] Gianni Jara MD Unavailable [phone] Christine Blank NP Unavailable Unavailable Encounter Details Date Type Department Care Team (Late st Contact Info) Description 07/13/2019 Orders Only Laboratory [address] [place] [address] Marguerite Bernal [address] [place] [address] Flank pain (Primary Dx) Social History Tobacco [...] LAB CO2 28 22 - 29 mmol/L [facility] Anion Gap 14(H) 5 - 13 mmol/L [facility] Comment:Anion gap calculatio n does not include potassium (K+) value. BUN 22 7 - 25 mg/dL [facility] Creatinine 0.96 0.50 - 1.20 [...] [email or web address] Calcium 9.4 8.4 - 10.5 mg/dL [facility] GFR MDRD Non Af Amer 58 See Note [facility] Comment: GFR is estimated using Creatinine, age, gender and race. Patient's values should be interpreted as a trend. Between 30 and 90 ml/min/1.73m2, clinical correlation is needed. For additional information: [email or web address] Total Bilirubin 0.2 0.2 - 1.2 mg/dL [facility] AST 16 0 - 30 U/L [facility] EXTER [facility]AL LAB ALT 17 0 - 40 U/L [facility] Alkaline Phosphatase 110 33 - 140 U/L [facility] Total Protein 7.2 6.0 - 8.0 g/dL [facility] Albumin 4.0 3.5 - 5.0 g/dL [facility] Globulin 3.2 2.0 - 3.7 g/dL [facility] Albumin/Globulin Ratio 1.3 1.0 - 2.1 [facility] BUN/Creatinine Ratio 23 [facility] Serum (Serum) 07/13/2019 11: 32 AM EST 07/13/2019 4:35 PM EST Marguerite Bernal CHEMISTRY ORDERABLES Final Resul t [facility] [address] documented in this encounter Visit Diagnoses Diagnosis Flank pain- Primary Abdominal pain, unspecified site documented in this encounter Care Teams Drawing Tender Relationship Specialty Start Date End Date Alice Rutledge PCP - General Nurse Practitioner 06/23/19 Michelle Solomon MD [address] [place] [address] Medical Oncology 07/15/19 Michelet Gutierrez MD [address] [facility] [place] [address] Pulmonary Disease 07/15/19 Gianni Jara MD [address] [facility] [address] [place] [id number] Cardiology 07/15/19 Christine Blank NP [address] [address] Nurse Practitioner Sleep Medicine 07/15/19 documented as of this encounter
--- OUTSIDE RECORDS SUMMARY | 2025-02-02 11:40 | XMS_ITS | Encounter Summary ---
Author Organization [facility] Address [address] [place] [address], [address] [place] [address] Care Team Providers Care Dish Washer Name Role Phone Alice Rutledge APRN, CNP Primary Care Prov ider Encounter Details Date Type Department Care Team (Late st Contact Info) Description 05/22/2019 FollowUp Telephone Encounter [facility] [address] [place] [address] Tracy Jara Social History Tobacco Use Types [...] documented as of this encounter Care Teams Dish Washer Relationship Specialty Start Date End Date Alice Rutledge APRN - CNP [address] [address] PCP - General Family Nurse Practitioner 05/19/19 documented as of this encounter
--- OUTSIDE RECORDS SUMMARY | 2025-02-02 11:40 | XMS_ITS | Encounter Summary ---
Author Organization [facility] Address [address] [place] [address], [address] [place] [address] Care Team Providers Care Ordnance Engineer Name Role Phone Alice Rutledge APRN, CNP Primary Care Prov ider Encounter Details Date Type Department Care Team (Late st Contact Info) Description 05/24/2019 FollowUp Telephone Encounter [facility] [address] [place] [address] Tracy Jara Social History Tobacco Use Types [...] documented as of this encounter Care Teams Ordnance Engineer Relationship Specialty Start Date End Date Alice Rutledge APRN - CNP [address] [address] PCP - General Family Nurse Practitioner 05/19/19 documented as of this encounter
--- OUTSIDE RECORDS SUMMARY | 2025-02-02 11:40 | XMS_ITS | Encounter Summary ---
Author Organization [facility] Address [address] [place] [address], [address] [place] [address] Care Team Providers Care Procurement Inspector Name Role Phone Alice Rutledge APRN - LEXY Primary Care Prov ider Reason for Visit * Reason Onset Date Comments Medication Refill 07/27/2019 Encounter Details Date Type Department Care Team (Late st Contact Info) Description 07/27/2019 Refill [facility] [address] [facility] [address] [place] [address] Alice Rutledge, CAITLYN - LUMBER CHECKER [address] [facility] [address] [place] [address] Medication Refill Social History Tobacco Use Types [...] documented as of this encounter Care Teams Procurement Inspector Relationship Specialty Start Date End Date Alice Rutledge, CISTERN ROOM WORKING SUPERVISOR - LUMBER CHECKER [address] [place] [address] PCP - General Family Nurse Practitioner 05/19/19 documented as of this encounter
--- OUTSIDE RECORDS SUMMARY | 2025-02-02 11:40 | XMS_ITS | Clinical Summary ---
Author Organization [facility] Address [address] [facility] [place] [address] Care Team Providers Care Personal Vehicle Advisor Name Role Phone Pcp, Pending Only MD Primary Care Provider [phone] Urszula Sanderson DO Unavailable [phone] Social History Tobacco Use Types Packs/Day Years [...] to Health Maintenance Insurance MEDICARE on file [facility]AC[facility] Care Teams Personal Vehicle Advisor Relationship Specialty Start Date End Date Pcp, Pending Only, [place], [place] [phone] PCP - General Internal Medicine 08/17/19 [place] [address] [place] [address] 08/17/19
--- OUTSIDE RECORDS SUMMARY | 2025-02-02 11:40 | XMS_ITS | Referral Summary ---
Author Organization [facility] Address [address] [place] [address] Care Team Providers Care Rug Underlay Machine Operator Name Role Phone Pcp, Pending Only MD Primary Care Provider Kin Urszula DO Unavailable [phone] Social History Tobacco Use Types Packs/Day Years [...] to Health Maintenance Insurance MEDICARE on file [facility] MEDICARE REPLACEMENT Care Teams Rug Underlay Machine Operator Relationship Specialty Start Date End Date Pcp, Pending Only, [place], [place] [phone] PCP - General Internal Medicine 08/17/19 [place] [address] [place] [address] 08/17/19
--- OUTSIDE RECORDS SUMMARY | 2025-02-02 11:40 | XMS_ITS | Clinical Summary ---
Author Organization [facility] Address [address] [place] [address] Care Team Providers Care Hardware Developer Name Role Phone DamasoRadha APRN Primary Care Provider [phone] Social History Tobacco Use Types Packs/Day Years [...] (2 - Td or Tdap) 06/18/2022 013 ANNUAL WELLNESS VISIT 09/01/2024 02/06/2019 HEMOGLOBIN A1C 09/16/2024 03/19/2024, 02/19, 05/20/2019, Additional history exists INFLUENZA VACCINE 12/18/2024 06/11/2023, , 02/06/2019, Additional history exists COVID-19 Vaccine ( - 2023-2 5 season) 2025 COLOGUARD 01/30/2025 01/30/2022 COLORECTAL CANCER SCREENING 01/30/2025 HEPATITIS C SCREENING Completed 03/19/2024, [address] [facility] MEDICARE ADVANTAGE SNP PPO Care Teams Hardware Developer Relationship Specialty Start Date End Date Radha Petit APRN [address] [facility] [place] [place] [address] PCP - General Family Medicine 08/18/24
--- OUTSIDE RECORDS SUMMARY | 2025-02-02 11:40 | XMS_ITS | Encounter Summary ---
Author Organization [facility] Address [address] [place] [address], [address] [place] [address] Care Team Providers Care Automotive Software Engineer Name Role Phone Alice Rutledge APRN, CNP Primary Care Prov ider Encounter Details Date Type Department Care Team (Late st Contact Info) Description 05/24/2019 FollowUp Telephone Encounter [facility] [address] [place] [address] Tracy Jara Social History Tobacco Use Types [...] documented as of this encounter Care Teams Automotive Software Engineer Relationship Specialty Start Date End Date Alice Rutledge APRN - CNP [address] [address] PCP - General Family Nurse Practitioner 05/19/19 documented as of this encounter
--- OUTSIDE RECORDS SUMMARY | 2025-02-02 11:40 | XMS_ITS | Clinical Summary ---
Author Organization [facility] Address [address] [place] [address] Care Team Providers Care Furniture Maker Name Role Phone Reva Lou JAMES Primary Care Provider [phone] Allergies Active Allergy Reactions Criticality Noted Date [...] 12/28/2020 Active ergocalciferol (Vitamin D-2) 1.25 MG (74848 UT) capsule Take 1 capsule (50,000 Units) [...] place to sleep or slept in a nursing home (including now)? No 03/20/2024 Utilities Answer Date [...] (2 - Td or Tdap) 06/18/2022 06/18/2012 [facility]-Diabetes: Hemoglobin A1C 09/16/2024 03/19/2024 [facility]- SDOH Screenings 09/17/2024 [facility]-Adult SDOH Screenings 09/17/2024 03/20/2024 [id number] Vaccine (1 - season) 2025 [facility]-Influenza Vaccine (#1) 01/18/202506/11, 04/03/2022, 02/06/2019, Additional [...] 6.6(H) <5.7 % 03/19/2024 5:40 PM EDT [facility] Blood Venous blood specimen / Unknown Venipuncture / Unknown 03/19/2024 3:37 PM EDT 03/19/2024 3:58 PM EDT Narrative [facility] - 03/19/2024 5:40 PM EDT HA1C Interpretive Data: Diagnosis of Diabetes: Diabetic > or = 6.5% Pre-diabetic 5.7 to 6.4% Non-diabetic < or = 5.6% Glycemic Targets for Type I and Type II Diabetics: Non- Adults <7.0% Adults <6.0% Children and Adolescents <7.5% Source: [place] [employer]. Standards of medical care in diabetes,2017. Diabetes Care.2017:40 (suppl 1):S1-S135. HbA1c assay performed by an ion-exchange chromatography method that is certified traceable to the DCCT. Santhosh Swenson MD LAB BLOOD ORDERABLES Final R esult [facility] [address] [place] [address] * Hepatitis C Antibody - ED (03/19/2024 12:44 PM EDT) Hepatitis C Antibody Negative Negative 03/19/2024 2:20 PM EDT [facility] Blood Venous blood specimen / Unknown Venipuncture / Unknown 03/19/2024 12:44 PM EDT 03/19/2024 1:29 PM EDT us Zaki Murguia MD LAB BLOOD ORDERABLES Final Resul t Performing Organization Address City/[facility] Co de Phone Number [facility] [address] [place] [address] from Last 3 Months or Most Recently Relevant to Health Maintenance Insurance [facility] MEDICARE [facility] MEDICAID [id number] Advance Directives * Full Code (Latest Code Status on File) Date Activated Date Inactivated Comments 03/19/2024 1:31 PM 03/20/2024 8:13 PM Question Answer Comments Patient has decision-making capacity? Yes Care Teams Furniture Maker Relationship Specialty Start Date End Date Reva Lou PA [address] [place] [address] PCP - General 09/30/20
--- OUTSIDE RECORDS SUMMARY | 2025-02-02 11:40 | XMS_ITS | Clinical Summary ---
Author Organization [facility] Address [address] [place] [address] Care Team Providers Care Building Service Worker Name Role Phone Alice Rutledge Primary Care Provider Michelle Solomon MD Unavailable [phone] Michelet Gutierrez MD Unavailable Gianni Jara MD Unavailable [phone] Christine Blank NP Unavailable Unavailable Allergies Active Allergy Reactions Criticality Noted Date Comments Canagliflozin 08/01/2018 Other reaction(s): Unknown Linaclotide 03/03/2019 Metronidazole 03/03/2019 Nystatin 03/03/2019 dizziness Hknotzp-Jht-Yrk Reductase Inhibitors 08/01/2018 Other reaction(s): Unknown Medications [...] flutter 06/05/2019 Coronary artery disease invo [place]ving [place] coronary artery of [place] heart without angina pectoris 06/05/2019 Essential hypertension [...] Comments Father alzheimer alzheimer Mother (Age 67) [place] Social History Tobacco Use Types Packs/Day Years [...] LAB Albumin/Globulin Ratio 1.3 1.0 - 2.1 [facility] BUN/Creatinine Ratio 23 [facility] Serum (Serum) 07/13/2019 11: 32 AM EST 07/13/2019 4:35 PM EST Marguerite Bernal CHEMISTRY ORDERABLES Final Resul t [facility] [address] [place] [address], [facility] from Last 3 Months or Most Recently Relevant to Health Maintenance Insurance [facility] DUAL [place] MED[place]ID [place] MED[place]ID [facility] DUAL [place] MEDICAID [facility] D[facility] [place] MED[place]ID [place] Care Teams Building Service Worker Relationship Specialty Start Date End Date Alice Rutledge PCP - General Nurse Practitioner 06/23/19 Michelle Solomon MD [address] [place] [address] Medical Oncology 07/15/19 Michelet Gutierrez MD [address] [place] [address] Pulmonary Disease 07/15/19 Gianni Jara MD [address] [facility] [address] [place], [place] [phone] Cardiology 07/15/19 Christine Blank NP [address] [facility] [address] [place] [address] Nurse Practitioner Sleep Medicine 07/15/19
--- OUTSIDE RECORDS SUMMARY | 2025-02-02 11:40 | XMS_ITS | Encounter Summary ---
Author Organization [facility] Address [address] [place] [address] Care Team Providers Care Marketing Automation Manager Name Role Phone Nonstaff, Moise LOCKWOOD Primary Care Provider [phone] Alice Rutledge Primary Care Provider Michelle Solomon MD Unavailable [phone] Michelet Gutierrez MD Unavailable [phone] Gianni Jara MD Unavailable [phone] Christine Blank NP Unavailable Unavailable Encounter Details Date Type Department Care Team (Late st Contact Info) Description 05/27/2019 Abstract [facility] Physicians - Heart & Vascular, [address] [place] [address] Gianni Jara MD [address] [address] Social History Tobacco Use Types Packs/Day Years [...] on filedocumented in this encounter Care Teams Marketing Automation Manager Relationship Specialty Start Date End Date Moise Garcia MD PCP - General 06/05/19 06/22/19 Alice Rutledge PCP - General Nurse Practitioner 06/23/19 Michelle Solomon MD [address] [place] [address] Medical Oncology 07/15/19 Michelet Gutierrez MD [address] [place] [address] Pulmonary Disease 07/15/19 Gianni Jara MD [address] [facility] [address] [place] [phone] Cardiology 07/15/19 Christine Blank NP [address] [facility] [address] [place] [address] Nurse Practitioner Sleep Medicine 07/15/19 documented as of this encounter
--- OUTSIDE RECORDS SUMMARY | 2025-02-02 11:40 | XMS_ITS | Clinical Summary ---
Author Organization [facility] Address [address] [place] [address], [address] [place] [address] Care Team Providers Care Harbor Tug Captain Name Role Phone Aamir Alice Eller APRN - APPEALS MANAGER Primary Care Prov ider Allergies Active Allergy [...] s:Uncontrolled type 2 diabetes mellitus with hyperglycemia ([facility]),Morbid obesity due to excess calories ([facility]),Neuropathy due to type 2 diabetes mellitus ([facility]) Take 1 capsule by mouth [...] complication, with long-term current use of insulin ([facility]) Inject 1 pen into the skin daily 100 each 1 Active ondansetron (ZOFRAN-ODT) [address] 1 tablet under the tongue daily as needed for Nausea 30 tablet Active vitamin D (CHOLECALCIFEROL) [address] UNIT CAPSIndications:V itamin D deficiency Take 1 capsule by mouth once a week 12 capsule 1 020 Active metFORMIN (GLUCOPHAGE) 1000 MG tabletIndications :Type 2 diabetes mellitus with complication, with long-term current use of insulin ([facility]) Take 1 tablet by mouth [...] Mari RN Clinical Performance Nurse [facility] [phone] BPCI-A Patient, will follow for the next [...] disorder) 04/21/2019 Coronary artery disease invo lving n[place] coronary artery of [place] heart without angina pectoris 03/04/2019 Neuropathy 03/03/2019 Blockage of coronary artery of heart 02/16/2019 Depression 10/06/2018 Type 2 diabetes mellitus wit h complication, with long-term current use of insulin 10/06/2018 Overview (10/06/2018): dx for 5 years-2013? Gastroesophageal reflux disease 10/06/2018 Personal history of colon cancer 10/06/2018 Mixed hyperlipidemia 10/06/2018 Overview (03/03/2019): Patient is supposed to be on Gemfibrozil 600 mg twice daily per [facility] physician group note from last PCP in [place], [place] on 07/24/2018 PAF (paroxysmal atrial fibrillation) [...] than three times a week 08/06/2019 Attends Yazidism Services Not on file 08/05 Active Member [...] file Insurance MEDICARE [facility] [address] Advance Directives * Full Code (Latest Code [...] 11:02 PM 08/04/2018 6:42 PM Care Teams Harbor Tug Captain Relationship Specialty Start Date End Date Alice Rutledge, TRACTOR DRIVER - APPEALS MANAGER [address] [place] [address] PCP - General Family Nurse Practitioner 05/19/19
--- NOTE | 2025-02-02 11:45 | XR_ITS ---
FINAL REPORT CLINICAL HISTORY: pneumonia // cough and chest pain COMPARISON: 01/21/2025 FINDINGS: PA and lateral views of the chest were obtained. There is a vague opacity in the right lung base suspicious for pneumonia. A small right pleural effusion is noted. The left lung is clear. The mediastinum has a normal appearance. The cardiac silhouette is unremarkable. IMPRESSION: Findings suspicious for right basilar pneumonia. Reviewed, Interpreted and Dictated by Faith Goldberg MD Transcribed by Jimena Ordonez Authenticated and [facility]
[2025-02-02 15:11] LABS: Hematocrit 41.6 % (37.0-47.0); Hemoglobin 13.7 g/dL (12.2-16.2); Immature Granulocytes % 0.4 %; Mean Corpuscular HGB Conc 32.9 g/dL (31.8-35.4); Mean Corpuscular Hemoglobin 29.0 pg (27.0-31.2); Mean Corpuscular Volume 88.1 fl (81-99); Nucleated Red Blood Cells % 0 %; Platelet Count 572 K/mm3 (142-424); Red Blood Count 4.72 M/mm3 (4.20-5.40); Red Cell Distribution Width-SD 42.9 fL; White Blood Count 14.5 K/mm3 (4.8-10.8)
[2025-02-02 16:20] LABS: Albumin Level 3.7 g/dl (3.5-5.0); Chloride 98 mmol/L (98-107); Potassium 4.7 mmoL/L (3.5-5.1); Sodium 134 mmol/L (136-145)
[2025-02-02 16:22] LABS: Blood Urea Nitrogen 25 mg/dl (7-17); Creatinine,Serum 1.00 mg/dl (0.52-1.04); Estimated Glomerular Filt Rate 55 ml/min (>60); GFR (African American) 66 ML/MIN (>60)
[2025-02-02 16:23] LABS: Alanine Aminotransferase 18 U/L (12-78); Albumin/Globulin Ratio 1.0 (1.1-1.8); Alkaline Phosphatase 111 U/L (38-126); Anion Gap 17.7 mEq/L (5-15); Aspartate Amino Transferase 28 U/L (14-36); Bilirubin,Total 0.6 mg/dl (0.2-1.3); Calcium 9.5 mg/dl (8.4-10.2); Carbon Dioxide 23 mmol/L (22.0-30.0); Globulin 3.8 g/dL (1.3-3.2); Glucose 152 mg/dl (74-100); Total Protein,Serum 7.5 g/dl (6.3-8.2)
== END 2025-02-02 23:59 | disposition home or self-care (01) ==
LOC: RAD 11:38
PROVIDERS: PCP Family Medicine; Visit Provider Family Medicine
DX: J18.9 Pneumonia, unspecified organism (principal); R91.8 Other nonspecific abnormal finding of lung field
CPT/HCPCS: 71046; 80053; 85025

== ENCOUNTER 2025-03-18 07:31 | Day surgery (SDC) | payer MEDICARE, MEDICAID, SELFPAY ==
[2025-03-12 16:36] VITALS: BMI 33.3
--- NOTE | 2025-03-17 07:04 | EXP.HP ---
History of Present Illness *Admission Date: 03/18/25 *History of present illness: Mrs. Shin is a 69-year-old female who is here for screening/surveillance colonoscopy secondary to a recently positive Cologuard. The patient did have a colonoscopy (Sheldon Potter MD) and December 2022 and had 2 benign polyps (hyperplastic polyps) removed. The examination is deemed medically necessary for screening colonoscopy. The patient has been seen, interviewed and examined prior to the procedure by both myself and the anesthesia provider. [facility] Disclaimer: The information contained in this section may have been updated after the patient was seen, as this information can be updated by other users. Medical History Ear itching Mini stroke 2002 2003 Ganglion cyst of hand tendon excised Irritable bowel syndrome with mixed bowel habits Colon cancer screening Breast cancer screening by mammogram Diabetes mellitus Upper abdominal pain Abnormal echocardiogram Interatrial cardiac shunt Angina pectoris Wellness examination Memory loss CVA (cerebral vascular accident) Chest pain Body mass index (BMI) of 40.1 to 44.9 in adult Family history of [place]'s disease There is no clinical evidence of a neurodegenerative disease including Bond's disease at this time. If she wants to proceed with genetic testing in the future this hast to be preceded by genetic counseling. She declined further testing at this time. Ganglion cyst of left foot Typical angina Diabetic gastroparesis Vomiting Bilateral impacted cerumen Pain, gastric Gastritis Cholelithiasis Gallstones Refer to [facility] for cholecytectomy. Encouraged to stop smoking and continue insulin titration for better glucose control for ultimate surgical outcome Gastroparesis Dyspnea Chest pain Onychoincurvatum Onychodystrophy Trigger finger of right hand Tendinitis of right peroneus brevis tendon Foot pain, right Insulin dependent diabetes mellitus with complications Plantar fasciitis, left Foot pain, left Onychogryposis of toenail Asymptomatic hypertension Dizziness Chest pain Epigastric abdominal pain Dehydration Abnormal cardiovascular stress test Low blood pressure reading Atypical chest pain Myalgia due to statin Fracture of fifth metatarsal bone of right foot with delayed healing Cardiac arrhythmia Sinus bradycardia Back pain Obesity, Class III, BMI 40-49.9 (morbid obesity) Labile essential hypertension TOMAS (obstructive sleep apnea) Allergic rhinitis Breast cyst left removed Ganglion cyst left wrist Dermoid cyst of head removed Diabetes mellitus, type 2 Neck pain Moderate mitral regurgitation Mood disorder Obesity HTN (hypertension) COPD (chronic obstructive pulmonary disease) GERD (gastroesophageal reflux disease) Neuropathy Anxiety Restless leg syndrome Most likely secondary RLS in a patient with history of diabetes mellitus and peripheral neuropathy. She has signs and symptoms suggestive of augmentation, (worsening of RLS despite of increasing doses dopamine agonist and most recently carbidopa/levodopa). Surgical History Hx of removal of cyst Left breast S/P coronary artery stent placement Status post trigger finger release History of cholecystectomy History of hysterectomy History of colonoscopy Family History Other Family history of Alzheimer's disease Family history of Bond's disease Family history of myocardial infarction Social History (Updated 03/18/25 @ 08:33 by hCata Dawkins RN) Smoking Status: Never smoker second hand exposure: Yes alcohol intake: never counseling provided: provider counseling substance use type: former substance user, marijuana and crack/cocaine counseling given: No (former user) current occupational status: retired Travel in the last 8 weeks?: None household members: children housing: house lives independently: Yes marital status: legally education level: high school current occupational exposures/hazards: No caffeine: No special lex needs: No agree to transfusion: No do you feel safe at home: Yes victim of physical abuse: No victim of emotional abuse: No victim of sexual abuse: No would you like helpful sources: No Have you lived/traveled outside US in past 30 days?: No Contact w/someone who lives/traveled outside US past 30 days?: No Exposure to someone with infectious disease in past 14 days?: No Do you have a fever (greater than 100.4 F or 38 C)?: No Have you tested positive for COVID-19?: No Exposed to someone with COVID-19 in past 14 days?: No Do you have a sore throat?: No Do you have a cough?: No Do you have any weakness?: No Are you experiencing any nausea/vomitting?: No Do you have any diarrhea?: No Are you experiencing any unusual bleeding?: No Do you have any muscle aches/pain?: No Do you have any abdominal pain?: No Are you experiencing loss of taste or smell?: No Other Medical History Have you received the Flu Vaccine for this season: No Have you received the Pneumonia Vaccine: No Review of Systems Review of Systems Review of systems (narrative): Negative *Cardiovascular Comments: Negative *Gastrointestinal Comments: Negative *Genitourinary Comments: Negative *Musculoskeletal Comments: Negative *Neurologic Comments: Negative Meds Home Medications and Allergies Home Medications ?Medication ?Instructions ?Recorded ?Confirmed ?Type ergocalciferol (vitamin D2) 1,250 1,250 mcg PO WEEKLY #14 caps 08/03/24 03/18/25 Rx mcg (50,000 unit) capsule famotidine 20 mg tablet 20 mg PO HS 08/07/24 03/18/25 History flecainide 100 mg tablet 100 mg PO BID 08/07/24 03/18/25 History blood-glucose sensor (Dexcom G7 #14 ea 11/02/24 02/23/25 Rx Sensor device) montelukast 10 mg tablet 10 mg PO HS #90 tabs 11/09/24 03/18/25 Rx (Singulair) cholecalciferol (vitamin D3) 50 50 mcg PO DAILY #90 caps 11/12/24 03/18/25 Rx mcg (2,000 unit) capsule clopidogrel 75 mg tablet 75 mg PO DAILY #90 tabs 11/18/24 03/18/25 Rx dapagliflozin propanediol 10 mg 10 mg PO DAILY #90 tabs 12/24/24 03/18/25 Rx tablet (Farxiga) rivaroxaban 20 mg tablet (Xarelto) 20 mg PO QPMWITHMEAL 01/18/25 03/18/25 History tirzepatide 10 mg/0.5 mL 10 mg SQ WEEKLY 01/18/25 03/18/25 History subcutaneous pen injector (Mounjaro) insulin degludec 100 unit/mL (3 45 unit (0.45 mL) SQ HS #15 mL 01/26/25 03/18/25 Rx mL) subcutaneous pen (Tresiba FlexTouch U-100 insulin) insulin lispro 100 unit/mL 1 sliding scale dose SQ AC 02/02/25 03/18/25 Rx subcutaneous pen Diabetes #15 mL dexlansoprazole 60 mg 60 mg PO DAILY #90 caps 02/18/25 03/18/25 Rx capsule,biphase delayed release losartan 25 mg tablet 25 mg PO DAILY 02/19/25 03/18/25 History furosemide 40 mg tablet (Lasix) 40 mg PO NEEDED PRN Fluid 02/23/25 03/18/25 History sodium,potassium,mag sulfates 17.5 See Rx Instructions PO .COMPLEX 03/04/25 03/18/25 Rx gram-3.13 gram-1.6 gram oral soln #354 mL (Suprep Bowel Prep Kit) albuterol sulfate 1.25 mg/3 mL 1.25 mg inhalation NEEDED PRN 03/12/25 03/18/25 History solution for nebulization shortness of breath or wheezing memantine 7 mg capsule 7 mg PO DAILY 03/12/25 03/18/25 History sprinkle,extended release 24hr (Namenda XR) New Prescriptions to Start Prescriptions: Allergies Allergy/AdvReac Type Severity Reaction Status Date / Time canagliflozin (From Invokana) Allergy Severe blisters Verified 03/18/25 08:25 metformin Allergy Mild Diarrhea, Verified 03/18/25 08:25 nausea, dizziness sitagliptin (From Januvia) Allergy Mild Hives Verified 03/18/25 08:25 linaclotide (From Linzess) Allergy Rash Verified 03/18/25 08:25 metronidazole (From Metrogel) Allergy Rash Verified 03/18/25 08:25 nystatin Allergy Dizziness Verified 03/18/25 08:25 rosuvastatin (From Crestor) Allergy Dizziness Verified 03/18/25 08:25 semaglutide (From Ozempic) AdvReac Severe Abdominal Verified 03/18/25 08:25 Pain atorvastatin (From Lipitor) AdvReac Intermediate body aches Verified 03/18/25 08:25 andmental confusion isosorbide AdvReac Headache Verified 03/18/25 08:25 Exam *Routine HEENT Exam Head: Present normocephalic Eye: Present EOMI and PERRL ENT: Present mucous membranes moist *Routine Neck Exam Neck: Present supple *Routine Respiratory Exam Respiratory: Present CTA bilaterally *Routine Cardiovascular Exam Cardiovascular: Present RRR *Routine Abdominal Exam Abdominal: Present soft and normoactive bowel sounds; Absent tenderness *Routine Rectal Exam Rectal:: deferred *Routine Genitalia Exam Genitalia:: deferred *Routine Extremities Exam Extremities: Absent cyanosis, clubbing or edema *Routine Skin Exam Skin: Present warm; Absent rash *Routine Neurological Exam Neurological: Present alert and oriented X3 Assessment and Plan *Assessment and plan (1) Positive colorectal cancer screening using Cologuard test: Status: Acute Category: Medical Code(s): R19.5 - Other fecal abnormalities (2) Screening for colon cancer: Status: Acute Category: Medical Code(s): Z12.11 - Encounter for screening for malignant neoplasm of colon Plan A/P: 1. Positive Cologuard test is the preprocedural diagnosis. The patient will be anesthetized/sedated using MAC sedation. The patient has been seen and examined. Cardiac and lung assessment prior to the examination is stable. Proceed with planned screening colonoscopy.
--- NOTE | 2025-03-18 06:56 | P.PCN_ITS ---
[facility] Procedure Note Date: 03/18/25 Time: 09:31 Procedure Note:: Colonoscopy Procedure Report: Colonoscopy with cold snare polypectomy Endoscopist: Rangel Hercules II, MD Referring physician: MARLENE Sanabria Date of Procedure: March 18, 2025 Equipment: Olympus [id number] adult colonoscope Sedation: MAC sedation Indication: Mrs. Shin is a 69-year-old female who is here for screening/surveillance colonoscopy secondary to a recently positive Cologuard. The patient does state that she had a colonoscopy with [place] around 2004 and had an adenomatous polyp removed. The patient also had a colonoscopy in [place] 10 to 15 years ago. The patient does report some spotting of blood on the tissue with bowel movements. She reports no abdominal pain, weight loss, change in her bowel habits or family history of colon cancer. The patient did have a colonoscopy (Sheldon Potter MD) and December 2022 and had 2 benign rectal polyps (hyperplastic polyps) removed. The examination is deemed medically necessary for screening colonoscopy. Procedure: Prior to the procedure, a history and physical exam was performed, and patient's medications and allergies were reviewed. The risks, benefits and alternatives of the sedation and procedure were discussed with the patient. All questions were answered and informed consent was obtained. The patient was brought to the procedure room. Patient identification and proposed procedure were verified by the physician and the nurse. The patient was placed in a left lateral decubitus position and the scope was passed under direct vision. Throughout the procedure, the patient's blood pressure, pulse, and oxygen saturations were monitored continuously. The colonoscopy was accomplished without difficulty. The patient tolerated the procedure well. Findings: On digital rectal examination there was normal rectal tone. There were no external hemorrhoids. There were small tags. The colonoscope was introduced through the anal canal to the rectum and advanced to the cecum. The ileocecal valve and appendiceal orifice were identified. The scope was advanced a short distance into the ileum which appeared grossly normal. The scope was then withdrawn into the colon. There were 3 diminutive polyps (descending x 1 (4 mm), sigmoid x 1 (4 mm) and rectosigmoid x 1 (3 mm)). These were all removed via cold snare polypectomy. The cecum, ascending, transverse, descending, sigmoid and rectum were grossly normal. There were no mucosal abnormalities identified. Upon retroflexion within the rectum there were grade 2 internal hemorrhoids with small hypertrophied anal papilla. The preparation was excellent throughout with Arnold Preparation Score of 9. The cecal time was 14 minutes. Impression: 1. Diminutive colonic polyps x 3 2. Grade 2 internal hemorrhoids Plan: I will recommend repeat screening/surveillance colonoscopy in 5 years. I would encourage psyllium bulking fiber supplementation on a maintenance basis.
[2025-03-18 08:33] VITALS: BP 166/89; PULSE 77; RESP 18; TEMP 36.4; O2SAT 98
[2025-03-18] MEDS: LACTATED RINGERS 1000ML 1,000 ML 50 ML IV (08:40)
--- NOTE | 2025-03-18 09:08 | P.PNANES_ITS ---
[facility] Disclaimer: The information contained in this section may have been updated after the patient was seen, as this information can be updated by other users. Medical History Ear itching Mini stroke 2002 2003 Ganglion cyst of hand tendon excised Irritable bowel syndrome with mixed bowel habits Colon cancer screening Breast cancer screening by mammogram Diabetes mellitus Upper abdominal pain Abnormal echocardiogram Interatrial cardiac shunt Angina pectoris Wellness examination Memory loss CVA (cerebral vascular accident) Chest pain Body mass index (BMI) of 40.1 to 44.9 in adult Family history of [place]'s disease There is no clinical evidence of a neurodegenerative disease including [place]'s disease at this time. If she wants to proceed with genetic testing in the future this hast to be preceded by genetic counseling. She declined further testing at this time. Ganglion cyst of left foot Typical angina Diabetic gastroparesis Vomiting Bilateral impacted cerumen Pain, gastric Gastritis Cholelithiasis Gallstones Refer to [facility] for cholecytectomy. Encouraged to stop smoking and continue insulin titration for better glucose control for ultimate surgical outcome Gastroparesis Dyspnea Chest pain Onychoincurvatum Onychodystrophy Trigger finger of right hand Tendinitis of right peroneus brevis tendon Foot pain, right Insulin dependent diabetes mellitus with complications Plantar fasciitis, left Foot pain, left Onychogryposis of toenail Asymptomatic hypertension Dizziness Chest pain Epigastric abdominal pain Dehydration Abnormal cardiovascular stress test Low blood pressure reading Atypical chest pain Myalgia due to statin Fracture of fifth metatarsal bone of right foot with delayed healing Cardiac arrhythmia Sinus bradycardia Back pain Obesity, Class III, BMI 40-49.9 (morbid obesity) Labile essential hypertension TOMAS (obstructive sleep apnea) Allergic rhinitis Breast cyst left removed Ganglion cyst left wrist Dermoid cyst of head removed Diabetes mellitus, type 2 Neck pain Moderate mitral regurgitation Mood disorder Obesity HTN (hypertension) COPD (chronic obstructive pulmonary disease) GERD (gastroesophageal reflux disease) Neuropathy Anxiety Restless leg syndrome Most likely secondary RLS in a patient with history of diabetes mellitus and peripheral neuropathy. She has signs and symptoms suggestive of augmentation, (worsening of RLS despite of increasing doses dopamine agonist and most recently carbidopa/levodopa). Surgical History Hx of removal of cyst Left breast S/P coronary artery stent placement Status post trigger finger release History of cholecystectomy History of hysterectomy History of colonoscopy Family History Other Family history of Alzheimer's disease Family history of Danit[place]'s disease Family history of myocardial infarction Social History (Updated 03/18/25 @ 08:33 by Chata Dawkins RN) Smoking Status: Never smoker second hand exposure: Yes alcohol intake: never counseling provided: provider counseling substance use type: former substance user, marijuana and crack/cocaine counseling given: No (former user) current occupational status: retired Travel in the last 8 weeks?: None household members: children housing: house lives independently: Yes marital status: legally education level: high school current occupational exposures/hazards: No caffeine: No special lex needs: No agree to transfusion: No do you feel safe at home: Yes victim of physical abuse: No victim of emotional abuse: No victim of sexual abuse: No would you like helpful sources: No Have you lived/traveled outside US in past 30 days?: No Contact w/someone who lives/traveled outside US past 30 days?: No Exposure to someone with infectious disease in past 14 days?: No Do you have a fever (greater than 100.4 F or 38 C)?: No Have you tested positive for COVID-19?: No Exposed to someone with COVID-19 in past 14 days?: No Do you have a sore throat?: No Do you have a cough?: No Do you have any weakness?: No Are you experiencing any nausea/vomitting?: No Do you have any diarrhea?: No Are you experiencing any unusual bleeding?: No Do you have any muscle aches/pain?: No Do you have any abdominal pain?: No Are you experiencing loss of taste or smell?: No [facility] Anesthesia Checklist Patient Identification Patient Identification: Verbal (Name & ) Structural Data Admitted From: Home Planned Operative Procedure/s: colonoscopy Consent for Planned Operative Procedure(s) Verified: Yes NPO Status Verified Time NPO: 00:00 Additional verifications Anesthesia Reactions: No Hx Blood Transfusions: No Blood Transfusion Reaction: No Airway Assessment Mallampati Score:: Class II C-Spine Mobility Assessed: Yes TMJ Mobility Assessed: Yes Dentition: Edentulous Neurological Assessment Level of Consciousness: Awake, Alert and Appropriate Anesthesia Plan Anesthesia Risk discussed: Yes Anesthesia Plan: Verified ASA Class: III Anesthesia Type: MAC
[2025-03-18 09:33] VITALS: BP 92/54; PULSE 72; RESP 18; TEMP 36.2; O2SAT 98
[2025-03-18 09:43] VITALS: BP 99/64; PULSE 85; TEMP 36.2; O2SAT 99
[2025-03-18 09:53] VITALS: BP 131/69; PULSE 78; O2SAT 100
[2025-03-18 10:03] VITALS: BP 127/70; PULSE 79; O2SAT 97
[2025-03-18 11:28] LABS: POC Glucose,Bedside 100 gm/dL (70-110)
== END 2025-03-18 10:03 | disposition home or self-care (01) ==
PROVIDERS: PCP Family Medicine; Visit Provider Internal Medicine Gastroenterology
PROC: 0DJD8ZZ Inspection of Lower Intestinal Tract, Via Natural or Artificial Opening Endoscopic (ICD-10-PCS; CPT 45378; principal; 2025-03-18 09:00)
DX: Z12.11 Encounter for screening for malignant neoplasm of colon (principal); D12.5 Benign neoplasm of sigmoid colon; K64.1 Second degree hemorrhoids; K62.89 Other specified diseases of anus and rectum; K31.84 Gastroparesis; K21.9 Gastro-esophageal reflux disease without esophagitis; Z86.0102 Personal history of hyperplastic colon polyps; Z88.8 Allergy status to other drugs, medicaments and biological substances; Z88.3 Allergy status to other anti-infective agents; K58.2 Mixed irritable bowel syndrome; J44.9 Chronic obstructive pulmonary disease, unspecified; I10 Essential (primary) hypertension; I49.9 Cardiac arrhythmia, unspecified; E11.43 Type 2 diabetes mellitus with diabetic autonomic (poly)neuropathy; Z79.4 Long term (current) use of insulin; Z79.01 Long term (current) use of anticoagulants; Z79.84 Long term (current) use of oral hypoglycemic drugs
CPT/HCPCS: 45385; 82962; 88300; 88305; J2003; J2704; J7120